=== PATIENT | female | born 1965 | race Two or more races ===

== ENCOUNTER → 2020-08-01 09:53 | Outpatient (BNVA) | payer MEDICAID, SELFPAY | PROVIDERS: PCP Internal Medicine Geriatric Medicine; Referring Provider Internal Medicine Geriatric Medicine; Visit Provider Nurse Practitioner Gerontology | DX: E11.65 Type 2 diabetes mellitus with hyperglycemia (principal); E11.40 Type 2 diabetes mellitus with diabetic neuropathy, unspecified; Z79.4 Long term (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 of insulin; E78.5 Hyperlipidemia, unspecified; I10 Essential (primary) hypertension | CPT/HCPCS: 82947; 99214 ==

== ENCOUNTER 2020-08-16 09:56 | Outpatient (REF) | payer MEDICAID, SELFPAY | END 2020-08-16 09:57 | disposition home or self-care (01) | LOC: HO.LAB 09:56 | PROVIDERS: Visit Provider Internal Medicine | DX: Z20.828 Contact with and (suspected) exposure to other viral communicable diseases (principal) | CPT/HCPCS: U0003 ==

== ENCOUNTER 2020-09-17 17:45 | Outpatient (REF) | payer MEDICAID, SELFPAY | END 2020-09-17 17:46 | disposition home or self-care (01) | LOC: HO.LAB 17:45 | PROVIDERS: PCP Internal Medicine Geriatric Medicine; Visit Provider Internal Medicine | DX: Z20.828 Contact with and (suspected) exposure to other viral communicable diseases (principal) | CPT/HCPCS: C9803; U0003 ==

== ENCOUNTER → 2020-09-18 08:58 | Outpatient (BNVA) | payer MEDICAID, SELFPAY | PROVIDERS: PCP Internal Medicine Geriatric Medicine; Referring Provider Internal Medicine Geriatric Medicine; Visit Provider Nurse Practitioner Gerontology | DX: Z76.89 Persons encountering health services in other specified circumstances (principal) ==

== ENCOUNTER 2020-09-19 14:00 | Outpatient (RCR) | payer MEDICAID, SELFPAY | END 2021-06-24 09:16 | disposition home or self-care (01) | LOC: HO.PT 14:00 | PROVIDERS: PCP Internal Medicine Geriatric Medicine; Visit Provider Internal Medicine Geriatric Medicine | DX: M54.5 Low back pain (principal) | CPT/HCPCS: 97110; 97140; 97162 ==

== ENCOUNTER 2020-11-14 13:05 | Outpatient (REF) | payer MEDICAID, SELFPAY ==
--- NOTE | 2020-11-14 | XR_ITS ---
EXAMINATION: XR WRIST, RIGHT CLINICAL INFORMATION: Pain in the right wrist COMPARISON: None TECHNIQUE: Four views of the right wrist. FINDINGS: There is no fracture or dislocation. The carpal rows are well aligned. There is negative ulnar variance of 0.2 cm. Vascular calcifications are noted. The soft tissues are otherwise unremarkable. XR/XR wrist RT min 3V IMPRESSION: Negative ulnar variance. Otherwise normal appearance of the right wrist.
== END 2020-11-14 13:06 | disposition home or self-care (01) ==
LOC: HO.XRAY 13:05
PROVIDERS: Visit Provider Internal Medicine
DX: M25.531 Pain in right wrist (principal)
CPT/HCPCS: 73110

== ENCOUNTER → 2020-12-17 13:31 | Outpatient (BNVA) | payer MEDICAID, SELFPAY | PROVIDERS: PCP Internal Medicine Geriatric Medicine; Visit Provider Nurse Practitioner ==

== ENCOUNTER → 2020-12-19 09:03 | Outpatient (BNVA) | payer MEDICAID, SELFPAY | PROVIDERS: PCP Internal Medicine Geriatric Medicine; Visit Provider Nurse Practitioner Gerontology ==

== ENCOUNTER 2020-12-27 09:11 | Outpatient (REF) | payer MEDICAID, SELFPAY ==
[2020-12-27 10:32] LABS: Estimated Average Glucose 240 mg/dL
[2020-12-27 10:46] LABS: Creatinine Urine 67.27 mg/dL; Microalbum/Creatinine Ratio Ur 17.8 ug/mg cr
[2020-12-27 10:50] LABS: Alanine Aminotransferase 39 U/L (0-31); Albumin Level 4.2 g/dL (3.5-5.0); Alkaline Phosphatase 90 U/L (39-117); Anion Gap 11 (12-20); Aspartate Amino Transferase 39 U/L (5-31); Bilirubin Total 0.2 mg/dL (0.0-1.0); Blood Urea Nitrogen 18 mg/dL (9-16); Calcium 9.7 mg/dL (8.4-10.2); Carbon Dioxide 33 mmol/L (22-29); Chloride 102 mmol/L (96-108); Cholesterol 196 mg/dL; Estimated Glomerular Filt Rate > 60; Glucose Fasting 202 mg/dL (60-99); HDL Cholesterol 59 mg/dL; LDL Cholesterol Calculated 113 mg/dl; Potassium 4.5 mmol/L (3.3-5.1); Sodium 141 mmol/L (135-145); Total Protein 7.3 g/dL (6.5-8.0); Triglycerides 123 mg/dL
[2020-12-27 11:10] LABS: Free T4 (Free Thyroxine) 0.82 ng/dL (0.71-1.85); Thyroid Stimulating Hormone 3.16 uIU/mL (0.32-4.0)
[2020-12-28 05:27] LABS: LDL Cholesterol Direct 119 mg/dL (<100)
== END 2020-12-27 09:12 | disposition home or self-care (01) ==
LOC: HO.10HDL 09:11
PROVIDERS: Visit Provider Nurse Practitioner Gerontology
DX: E11.40 Type 2 diabetes mellitus with diabetic neuropathy, unspecified (principal)
CPT/HCPCS: 36415; 80053; 80061; 82043; 83036; 83721; 84439; 84443

== ENCOUNTER → 2021-01-10 09:33 | Outpatient (BNVA) | payer MEDICAID, SELFPAY | PROVIDERS: PCP Internal Medicine Geriatric Medicine; Referring Provider Internal Medicine Geriatric Medicine; Visit Provider Internal Medicine Endocrinology, Diabetes & Metabolism | DX: C73 Malignant neoplasm of thyroid gland (principal); E11.65 Type 2 diabetes mellitus with hyperglycemia; E11.42 Type 2 diabetes mellitus with diabetic 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; E11.319 Type 2 diabetes mellitus with unspecified diabetic retinopathy without macular edema; E89.0 Postprocedural hypothyroidism; Z79.4 Long term (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 of insulin; I10 Essential (primary) hypertension; E78.5 Hyperlipidemia, unspecified | CPT/HCPCS: 82947; 99212 ==

== ENCOUNTER 2021-01-14 11:00 | Outpatient (RCR) | payer MEDICAID, SELFPAY | END 2021-02-13 13:40 | disposition other institution (70) | LOC: HO.OT 11:00 | PROVIDERS: PCP Internal Medicine Geriatric Medicine; Visit Provider Internal Medicine | DX: M25.531 Pain in right wrist (principal) | CPT/HCPCS: 29125; 97033; 97035; 97110; 97165; 97760 ==

== ENCOUNTER → 2021-01-23 13:59 | Outpatient (BNVA) | payer MEDICAID, SELFPAY | PROVIDERS: PCP Internal Medicine Geriatric Medicine; Visit Provider Nurse Practitioner Gerontology | DX: E11.65 Type 2 diabetes mellitus with hyperglycemia (principal); E11.40 Type 2 diabetes mellitus with diabetic neuropathy, unspecified; E78.5 Hyperlipidemia, unspecified; I10 Essential (primary) hypertension; Z79.4 Long term (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 of insulin | CPT/HCPCS: 82947; 99212 ==

== ENCOUNTER 2021-01-28 10:54 | Outpatient (REF) | payer MEDICAID, SELFPAY ==
--- NOTE | ~2021-01-28 | MM_ITS ---
EXAMINATION: MM DIAGNOSTIC DIGITAL BREAST TOMOSYNTHESIS, RIGHT US DIAGNOSTIC ULTRASOUND BREAST, RIGHT CLINICAL INFORMATION: Palpable area 6:00 right breast noted at routine clinical exam. The lifetime risk of breast cancer based on the Tyrer-Cuzick Model is 6%. COMPARISON: Mammography: 07/04/2020, 01/19/2019, 09/03/2017 TECHNIQUE: Digital breast tomosynthesis is performed in both the craniocaudal and mediolateral oblique views along with computer-aided detection (CAD). Synthesized 2D images are generated from the tomosynthesis. Ultrasound right breast is targeted to the area of recent clinical concern inferior breast 4:00 through 8:00 position. Grayscale imaging and color Doppler are performed without and with harmonics. FINDINGS: There are scattered areas of fibroglandular density (ACR BI-RADS breast composition Category b). Parenchymal pattern is similar to prior studies. There is no interval mass or architectural abnormality. No developing density. No skin thickening or retraction. No interval ductal ectasia or abnormal calcifications. Ultrasound demonstrates no cystic or solid mass, architectural abnormality, or focal duct ectasia. No skin thickening or edema tracking in soft tissue planes. Results are discussed with the patient at time of visit, using an certified court interpreter. MM/MM tomosynthesis diagnostic RT IMPRESSION: 1. No mammographic evidence of malignancy. No significant changes from prior studies. 2. Unremarkable targeted right breast ultrasound. ASSESSMENT: BI-RADS 1: Negative RECOMMENDATION: 1. Patient should be managed based on the clinical impression. If clinically indicated, further evaluation may be considered with surgical consult. Decision to proceed with biopsy should be based on clinical grounds and degree of clinical concern. 2. Otherwise, routine annual screening mammography. This patient's information was entered into a reminder system with a target due date for their next mammogram.
== END 2021-01-28 10:55 | disposition home or self-care (01) ==
LOC: HO.MAMMO 10:54
PROVIDERS: PCP Internal Medicine Geriatric Medicine; Visit Provider Advanced Practice Midwife
DX: N63.15 Unspecified lump in the right breast, overlapping quadrants (principal)
CPT/HCPCS: 76642; 77061; 77065

== ENCOUNTER → 2021-01-29 09:58 | Outpatient (BNVA) | payer MEDICAID, SELFPAY | PROVIDERS: PCP Internal Medicine Geriatric Medicine; Visit Provider Orthopaedic Surgery | DX: M25.531 Pain in right wrist (principal); M79.89 Other specified soft tissue disorders | CPT/HCPCS: 99202 ==

== ENCOUNTER 2021-02-06 15:41 | Outpatient (REF) | payer MEDICAID, SELFPAY ==
--- NOTE | ~2021-02-06 | MR_ITS ---
EXAMINATION: MR WRIST WITHOUT CONTRAST, RIGHT CLINICAL INFORMATION: Right wrist pain following a fall greater than 2 months ago. COMPARISON: Right wrist radiographs dated 11/14/2020 TECHNIQUE: MRI of the wrist was performed using routine sequences on a high-field scanner. FINDINGS: TRIANGULAR FIBROCARTILAGE: Thickening and abnormal signal throughout the radial aspect of the triangular fibrocartilage complex, which may represent undersurface partial tearing. No definite full-thickness defect. INTRINSIC LIGAMENTS: Intact. TENDONS/MEDIAN NERVE: The extensor digitorum tendinosis with prominent tenosynovitis throughout the extensor compartment. More mild extensor radialis brevis and extensor radialis longus tenosynovitis. No full-thickness transverse tendon defect. ARTICULAR CARTILAGE/BONE: Negative ulnar variance is redemonstrated. No articular cartilage loss. No acute osseous abnormality. JOINT FLUID/SOFT TISSUES: No significant joint effusion. Synovial recess versus ganglion cyst volar to the radial styloid measuring 0.2 x 1.4 x 1.1 cm. MR/MR wrist RT wo con IMPRESSION: 1. Prominent extensor digitorum tenosynovitis with mild tendinosis. No transverse tendon defect. 2. More mild extensor radialis brevis and extensor radialis longus tenosynovitis. 3. Negative ulnar variance without acute osseous abnormality. 4. Degenerative signal within the radial aspect of the triangular fibrocartilage complex with probable undersurface partial tearing. No full-thickness defect. 5. Synovial recess versus ganglion cyst volar to the radial styloid measuring up to 1.4 cm.
== END 2021-02-06 15:42 | disposition home or self-care (01) ==
LOC: HO.MRI 15:41
PROVIDERS: Visit Provider Orthopaedic Surgery
DX: M25.531 Pain in right wrist (principal); M79.89 Other specified soft tissue disorders
CPT/HCPCS: 73221

== ENCOUNTER 2021-02-12 15:15 | Outpatient (REF) | payer MEDICAID, SELFPAY | END 2021-02-12 15:16 | disposition home or self-care (01) | LOC: HO.LAB 15:15 | PROVIDERS: Visit Provider Internal Medicine | DX: Z20.822 Contact with and (suspected) exposure to COVID-19 (principal) | CPT/HCPCS: C9803; U0003; U0005 ==

== ENCOUNTER → 2021-03-21 11:35 | Outpatient (BNVA) | payer MEDICAID, SELFPAY | PROVIDERS: PCP Internal Medicine Geriatric Medicine; Visit Provider Nurse Practitioner Gerontology | DX: E11.65 Type 2 diabetes mellitus with hyperglycemia (principal); E11.40 Type 2 diabetes mellitus with diabetic neuropathy, unspecified; E78.5 Hyperlipidemia, unspecified; I10 Essential (primary) hypertension; Z79.4 Long term (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 of insulin | CPT/HCPCS: 82947; 99212 ==

== ENCOUNTER → 2021-04-17 09:59 | Outpatient (BNVA) | payer MEDICAID, SELFPAY | PROVIDERS: PCP Internal Medicine Geriatric Medicine; Visit Provider Surgery | DX: N63.10 Unspecified lump in the right breast, unspecified quadrant (principal) | CPT/HCPCS: 99202 ==

== ENCOUNTER 2021-04-23 07:10 | Day surgery (SDC) | payer MEDICAID, SELFPAY ==
--- NOTE | 2021-04-22 08:12 | HO.ANESPROP2 ---
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) Papillary microcarcinoma of thyroid (Acute) Gastroparesis (Acute) Tubular adenoma of colon (Acute) IBS (irritable bowel syndrome) (Acute) Esophageal spasm (Acute) Functional burping disorder (Acute) GERD (gastroesophageal reflux disease) (Acute) Diabetes mellitus with hyperglycemia (Acute) Type 2 diabetes mellitus with diabetic neuropathy, unspecified (Acute) Hyperlipidemia LDL goal <100 (Acute) Post-surgical hypothyroidism (Acute) Essential hypertension (Acute) Past Medical History Medical History Arthritis Depression Diabetes mellitus with hyperglycemia Diabetic 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 associated with type 2 diabetes mellitus Diabetic retinopathy associated with type 2 diabetes mellitus Essential hypertension Gallstones Gastroparesis Hyperlipidemia LDL goal <100 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 Mother Diabetes mellitus Daughter Diabetes mellitus Surgical History Surgical History H/O thyroidectomy History of cholecystectomy History of esophagogastroduodenoscopy (EGD) Hx of eye surgery Social History Social History Household Members: Children Alcohol intake: current Alcohol intake frequency: does not drink Patient Tobacco Use Status: Never used Tobacco Use of substances other than those prescribed or required for medical reasons: No Are you DNR?: No Advance Directives: No Advance Directives Information Provided: Yes Recently lost weight without trying: No Nutrition Risks: No Nutritional Risk Patient : No Current occupational status: disabled Current occupation: right handed Meds Allergies Allergy/AdvReac Type Severity Reaction Status Date / Time metformin AdvReac Mild stomach Verified 04/23/21 07:45 upset Home Medications Medication Instructions Recorded Confirmed Last Taken Type aspirin 81 mg tablet,delayed 81 mg PO DAILY 07/20/20 04/17/21 04/22/21 09:00 History release baclofen 10 mg tablet 10 mg PO DAILY 07/20/20 04/17/21 Unknown History enalapril maleate 10 mg tablet 10 mg PO DAILY 07/20/20 04/17/21 Unknown History ibuprofen 600 mg tablet 600 mg PO TID 07/20/20 04/17/21 Unknown History metformin 500 mg tablet See Rx Instructions PO DAILY 07/20/20 04/17/21 Unknown History sertraline 50 mg tablet 50 mg PO DAILY 07/20/20 04/17/21 Unknown History trazodone 50 mg tablet 50 mg PO DAILY 07/20/20 04/17/21 Unknown History Exam Exam Date and Time: April 22, 2021 0812 Pertinent Lab Results Pertinent Lab Results: Laboratory Tests 12/29/18 12/27/20 11:58 09:10 WBC 5.0 Hgb 13.0 Hct 37.1 Plt Count 181 Sodium 141 Potassium 4.5 Chloride 102 Carbon Dioxide 33 H BUN 18 H Creatinine 0.79 Assessment and Plan Assessment Anesthesia Assessment: Chart Reviewed Documented by User: Sally Taylor 04/23/21 08:29 [facility] Past Medical History Medical History Arthritis Depression Diabetes mellitus with hyperglycemia Diabetic 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 associated with type 2 diabetes mellitus Diabetic retinopathy associated with type 2 diabetes mellitus Essential hypertension Gallstones Gastroparesis Hyperlipidemia LDL goal <100 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 Mother Diabetes mellitus Daughter Diabetes mellitus Surgical History Surgical History H/O thyroidectomy History of cholecystectomy History of esophagogastroduodenoscopy (EGD) Hx of eye surgery Social History Social History Household Members: Children Alcohol intake: current Alcohol intake frequency: does not drink Patient Tobacco Use Status: Never used Tobacco Use of substances other than those prescribed or required for medical reasons: No Are you DNR?: No Advance Directives: No Advance Directives Information Provided: Yes Recently lost weight without trying: No Nutrition Risks: No Nutritional Risk Patient : No Current occupational status: disabled Current occupation: right handed Meds Allergies Allergy/AdvReac Type Severity Reaction Status Date / Time metformin AdvReac Mild stomach Verified 04/23/21 07:45 upset Home Medications Medication Instructions Recorded Confirmed Last Taken Type aspirin 81 mg tablet,delayed 81 mg PO DAILY 07/20/20 04/17/21 04/22/21 09:00 History release baclofen 10 mg tablet 10 mg PO DAILY 07/20/20 04/17/21 Unknown History enalapril maleate 10 mg tablet 10 mg PO DAILY 07/20/20 04/17/21 Unknown History ibuprofen 600 mg tablet 600 mg PO TID 07/20/20 04/17/21 Unknown History metformin 500 mg tablet See Rx Instructions PO DAILY 07/20/20 04/17/21 Unknown History sertraline 50 mg tablet 50 mg PO DAILY 07/20/20 04/17/21 Unknown History trazodone 50 mg tablet 50 mg PO DAILY 07/20/20 04/17/21 Unknown History Exam Airway Mallampati Class: II TM Dist: >3cm Neck ROM: Full Assessment and Plan Assessment Anesthesia Assessment: Anesthesia Plan Discussed and Chart Reviewed Final Anesthetic Review NPO: Yes ASA Class: III Final Preanesthetic Review: No Changes in Pt Med Stat, Meds/Allgs Chart Reviewed, Consent Obtained/Reviewed and Anes Risks/Benef Reviewed Patient Risk: Intermediate Procedure Risk: Low Assessment/Block/Sedation in SS: Assess/Block/Sedation-SS Anesthetic Plan Anesthetic Plan: MAC: Disposition: Standard PACU
[2021-04-23 08:01] VITALS: BP 121/69; PULSE 87; RESP 16; TEMP 36.2; O2SAT 96
[2021-04-23 08:08] VITALS: BMI 27.2
[2021-04-23 08:13] LABS: Glucose, Whole Blood 160 mg/dL (60-115)
[2021-04-23] MEDS: Lactated Ringers 1,000 ML 100 ML IVCONT (08:19)
--- NOTE | 2021-04-23 08:42 | MHC.SHP ---
Pre-Procedural Eval Section A Date of Service: 04/23/21 The patient is an INPATIENT: No Changes since office visit: Yes Patient answered all questions; No Cold of Flu in the past 2 weeks, No New Medical Problems and No Changes in Medication The History & Physical has been completed within 30 days and I have reviewed it.: Yes Section B Chief Complaint: Breast Mass Allergies: Allergies Allergy/AdvReac Type Severity Reaction Status Date / Time metformin AdvReac Mild stomach Verified 04/23/21 07:45 upset Plan Diagnosis/Plan: Unchanged I have reviewed the history and physical and performed a pertinent physical examination on my patient. No changes have occurred unless specified.
--- NOTE | 2021-04-23 09:16 | P.OP_ITS ---
Operative Note Operative Note Date of Service: 04/23/21 Narrative: Preoperative diagnosis: Right breast mass Postoperative diagnosis: same Procedure: excision of right breast mass Surgeon: George Akins MD Director Of Home Economics: no physician Anesthesia: MAC Indications for procedure: 56-year-old female presenting with a recent self identified mass in the 6 o'clock position of the right breast confirmed on physical examination as a 1.5 cm palpable mass discrete from the surrounding axel ast tissue. Workup with mammogram and ultrasound was negative. On examination patient has tenderness with palpation of this mass . She presents today For excision of the palpable mass Operative findings: 1.5 cm round palpable density possible fibrocystic change Specimen: right breast mass 06:00 o'clock Estimated blood loss: 5 mL Complications: none Procedure details: patient was brought to the OR and placed in a supine position. After administering light sedation the patient's right breast was prepped with ChloraPrep and draped in a sterile fashion. Local anesthesia consisting of 0.25% Sensorcaine with epinephrine was then infiltrated below the nipple-areolar complex in the 6 o'clock position. A curvilinear incision was then made with a scalpel carried out through subcutaneous tissue. Superior and inferior skin flaps were then created with electrocautery. A core of tissue surrounding the palpable mass was then excised using combination of electrocautery and Metzenbaum scissors hemostasis was assured all times the mass was removed and sent to pathology for further examination. Margins were marked with a long suture on the lateral margin short suture on the superior margin and loop suture on the deep /posterior margin. Wounds were irrigated with saline solution suctioned dry. Deep breast tissue was reapproximated using interrupted 3-0 Polysorb sutures. Dermis was reapproximated using interrupted 3-0 Polysorb sutures. Skin was then closed using a running subcuticular 4 0 Polysorb suture. Steri-Strips 2 x 2 gauze were then applied. This was then covered with Tegaderm dressing. The patient tolerated the procedure well. Sponge, instrument, needle counts reported as correct. The patient was transferred to PACU in stable condition.
[2021-04-23 09:23] VITALS: BP 139/76; PULSE 93; RESP 16; TEMP 36.6; O2SAT 95
[2021-04-23 09:39] VITALS: BP 127/63; PULSE 91; RESP 16; O2SAT 93
[2021-04-23 09:55] VITALS: BP 143/74; PULSE 92; RESP 16; TEMP 36.6; O2SAT 95
== END 2021-04-23 10:30 | disposition home or self-care (01) ==
PROVIDERS: PCP Internal Medicine Geriatric Medicine; Visit Provider Surgery
PROC: (CPT 19120; principal; 2021-04-23 09:10)
DX: N63.10 Unspecified lump in the right breast, unspecified quadrant (principal); I10 Essential (primary) hypertension; E55.9 Vitamin D deficiency, unspecified; E89.0 Postprocedural hypothyroidism; E11.42 Type 2 diabetes mellitus with diabetic 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; E11.65 Type 2 diabetes mellitus with hyperglycemia; E11.319 Type 2 diabetes mellitus with unspecified diabetic retinopathy without macular edema; Z85.850 Personal history of malignant neoplasm of thyroid; Z79.4 Long term (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 of insulin; Z79.82 Long term (current) use of aspirin; Z79.899 Other long term (current) drug therapy; Z88.8 Allergy status to other drugs, medicaments and biological substances
CPT/HCPCS: 19120; 82947; 88307; J0690; J2250; J2405; J3010

== ENCOUNTER → 2021-05-01 08:30 | Outpatient (BNVA) | payer MEDICAID, SELFPAY | PROVIDERS: PCP Internal Medicine Geriatric Medicine; Visit Provider Surgery | DX: Z48.816 Encounter for surgical aftercare following surgery on the genitourinary system (principal) | CPT/HCPCS: 99212 ==

== ENCOUNTER → 2021-06-02 13:45 | Outpatient (BNVA) | payer MEDICAID, SELFPAY | PROVIDERS: Visit Provider Orthopaedic Surgery | DX: M65.831 Other synovitis and tenosynovitis, right forearm (principal) | CPT/HCPCS: 99212 ==

== ENCOUNTER → 2021-08-04 13:25 | Outpatient (BNVA) | payer MEDICAID, SELFPAY | PROVIDERS: Referring Provider Internal Medicine Geriatric Medicine; Visit Provider Nurse Practitioner | DX: K31.84 Gastroparesis (principal); K58.9 Irritable bowel syndrome, unspecified; K22.4 Dyskinesia of esophagus; K21.9 Gastro-esophageal reflux disease without esophagitis; R14.2 Eructation | CPT/HCPCS: 99212 ==

== ENCOUNTER → 2021-08-19 11:12 | Outpatient (BNVA) | payer MEDICAID, SELFPAY | PROVIDERS: Visit Provider Physician Assistant | DX: M65.831 Other synovitis and tenosynovitis, right forearm (principal) | CPT/HCPCS: 99212 ==

== ENCOUNTER → 2021-09-02 11:55 | Outpatient (BNVA) | payer MEDICAID, SELFPAY | PROVIDERS: Visit Provider Nurse Practitioner ==

== ENCOUNTER 2021-12-04 11:28 | Outpatient (REF) | payer MEDICAID, SELFPAY ==
[2021-12-04 14:33] LABS: Alanine Aminotransferase 25 U/L (0-31); Albumin Level 4.3 g/dL (3.5-5.0); Alkaline Phosphatase 81 U/L (39-117); Aspartate Amino Transferase 31 U/L (5-31); Bilirubin Direct 0.2 mg/dL (0.0-0.5); Bilirubin Total 0.4 mg/dL (0.0-1.0); Cholesterol 180 mg/dL; HDL Cholesterol 67 mg/dL; LDL Cholesterol Calculated 98 mg/dl; Total Protein 7.9 g/dL (6.5-8.0); Triglycerides 79 mg/dL
[2021-12-04 14:48] LABS: Free T4 (Free Thyroxine) 1.11 ng/dL (0.71-1.85); Thyroid Stimulating Hormone 1.67 uIU/mL (0.32-4.0)
[2021-12-04 14:52] LABS: Gamma Glutamyl Transpeptidase 24 U/L (7-33)
[2021-12-05 07:26] LABS: LDL Cholesterol Direct 103 mg/dL (<100)
[2021-12-08 05:10] LABS: Thyroglobulin Antibody <1 IU/mL (<=1); Thyroglobulin Level 4.3 ng/mL
== END 2021-12-04 11:29 | disposition home or self-care (01) ==
LOC: HO.10HDL 11:28
PROVIDERS: Absent Provider Nurse Practitioner Gerontology; Visit Provider Internal Medicine Endocrinology, Diabetes & Metabolism
DX: C73 Malignant neoplasm of thyroid gland (principal); E78.5 Hyperlipidemia, unspecified
CPT/HCPCS: 36415; 80061; 80076; 82977; 83721; 84432; 84439; 84443; 86800

== ENCOUNTER → 2021-12-05 08:12 | Outpatient (BNVA) | payer MEDICAID, SELFPAY | PROVIDERS: PCP Internal Medicine Geriatric Medicine; Visit Provider Internal Medicine Endocrinology, Diabetes & Metabolism | DX: C73 Malignant neoplasm of thyroid gland (principal) | CPT/HCPCS: 99212 ==

== ENCOUNTER 2022-01-01 10:20 | Outpatient (REF) | payer MEDICAID, SELFPAY ==
[2022-01-01 11:20] LABS: Estimated Average Glucose 177 mg/dL; Hemoglobin A1c % 7.8 %
[2022-01-01 11:22] LABS: Alanine Aminotransferase 25 U/L (0-31); Albumin Level 4.2 g/dL (3.5-5.0); Alkaline Phosphatase 75 U/L (39-117); Anion Gap 13 (12-20); Aspartate Amino Transferase 26 U/L (5-31); Bilirubin Total 0.4 mg/dL (0.0-1.0); Blood Urea Nitrogen 19 mg/dL (9-16); Calcium 9.8 mg/dL (8.4-10.2); Carbon Dioxide 28 mmol/L (22-29); Chloride 105 mmol/L (96-108); Cholesterol 168 mg/dL; Estimated Glomerular Filt Rate > 60; Glucose Fasting 123 mg/dL (60-99); HDL Cholesterol 59 mg/dL; LDL Cholesterol Calculated 96 mg/dl; Potassium 4.8 mmol/L (3.3-5.1); Sodium 141 mmol/L (135-145); Total Protein 7.5 g/dL (6.5-8.0); Triglycerides 65 mg/dL
[2022-01-01 12:10] LABS: Creatinine Urine 95.26 mg/dL; Microalbum/Creatinine Ratio Ur 8.3 ug/mg cr
[2022-01-02 15:52] LABS: LDL Cholesterol Direct 101 mg/dL (<100)
== END 2022-01-01 10:21 | disposition home or self-care (01) ==
LOC: HO.LAB 10:20
PROVIDERS: PCP Internal Medicine Geriatric Medicine; Visit Provider Nurse Practitioner Gerontology
DX: E11.40 Type 2 diabetes mellitus with diabetic neuropathy, unspecified (principal); E11.65 Type 2 diabetes mellitus with hyperglycemia; E55.9 Vitamin D deficiency, unspecified; Z79.4 Long term (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 of insulin
CPT/HCPCS: 36415; 80053; 80061; 82043; 82306; 83036; 83721

== ENCOUNTER → 2022-01-07 08:31 | Outpatient (BNVA) | payer MEDICAID, SELFPAY | PROVIDERS: Visit Provider Nurse Practitioner Gerontology | DX: E11.65 Type 2 diabetes mellitus with hyperglycemia (principal); E11.40 Type 2 diabetes mellitus with diabetic neuropathy, unspecified; E78.5 Hyperlipidemia, unspecified; I10 Essential (primary) hypertension; Z79.4 Long term (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 of insulin | CPT/HCPCS: 82947; 99212 ==

== ENCOUNTER 2022-01-28 09:19 | Outpatient (REF) | payer MEDICAID, SELFPAY ==
--- NOTE | ~2022-01-28 | MM_ITS ---
EXAMINATION: MM SCREENING DIGITAL BREAST TOMOSYNTHESIS, BILATERAL CLINICAL INFORMATION: Screening. Asymptomatic. The lifetime risk of breast cancer based on the Tyrer-Cuzick Model is 6%. COMPARISON: Mammography: 01/28/2021, 07/04/2020, 01/19/2019 TECHNIQUE: Digital breast tomosynthesis is performed in both the craniocaudal and mediolateral oblique views along with computer-aided detection (CAD). Synthesized 2D images are generated from the tomosynthesis. FINDINGS: There are scattered areas of fibroglandular density (ACR BI-RADS breast composition Category b). There are no significant masses, abnormal calcifications, or other abnormalities. The axilla and skin contours are unremarkable. MM/MM tomosynthesis screening BI IMPRESSION: No mammographic evidence of malignancy. ASSESSMENT: BI-RADS 1: Negative RECOMMENDATION: Routine annual mammography screening. This patient's information was entered into a reminder system with a target due date for their next mammogram.
== END 2022-01-28 09:20 | disposition home or self-care (01) ==
LOC: HO.MAMMO 09:19
PROVIDERS: PCP Internal Medicine Geriatric Medicine; Visit Provider Internal Medicine Geriatric Medicine
DX: Z12.31 Encounter for screening mammogram for malignant neoplasm of breast (principal)
CPT/HCPCS: 77063; 77067

== ENCOUNTER → 2022-03-03 11:59 | Outpatient (BNVA) | payer MEDICAID, SELFPAY | PROVIDERS: PCP Internal Medicine Geriatric Medicine; Visit Provider Nurse Practitioner | DX: K21.9 Gastro-esophageal reflux disease without esophagitis (principal); K22.4 Dyskinesia of esophagus; K31.84 Gastroparesis; K59.00 Constipation, unspecified | CPT/HCPCS: 99212 ==

== ENCOUNTER → 2022-07-02 09:16 | Outpatient (BNVA) | payer MEDICAID, SELFPAY | PROVIDERS: PCP Internal Medicine Geriatric Medicine; Visit Provider Internal Medicine Endocrinology, Diabetes & Metabolism | DX: E11.319 Type 2 diabetes mellitus with unspecified diabetic retinopathy without macular edema (principal); E11.40 Type 2 diabetes mellitus with diabetic neuropathy, unspecified; C73 Malignant neoplasm of thyroid gland; Z79.4 Long term (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 of insulin; Z79.84 Long term (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 of oral hypoglycemic drugs | CPT/HCPCS: 82947; 83036; 99211; 99212 ==

== ENCOUNTER 2022-07-23 08:11 | Outpatient (REF) | payer MEDICAID, SELFPAY ==
[2022-07-23 10:13] LABS: Cholesterol 147 mg/dL; HDL Cholesterol 51 mg/dL; LDL Cholesterol Calculated 84 mg/dl; Triglycerides 60 mg/dL
[2022-07-23 10:41] LABS: Free T4 (Free Thyroxine) 1.22 ng/dL (0.71-1.85); Thyroid Stimulating Hormone 2.12 uIU/mL (0.32-4.0)
[2022-07-28 04:27] LABS: Thyroglobulin Antibody <1 IU/mL (<=1); Thyroglobulin Level 4.3 ng/mL
== END 2022-07-23 08:12 | disposition home or self-care (01) ==
LOC: HO.LAB 08:11
PROVIDERS: PCP Internal Medicine Geriatric Medicine; Visit Provider Internal Medicine Endocrinology, Diabetes & Metabolism
DX: C73 Malignant neoplasm of thyroid gland (principal); E11.40 Type 2 diabetes mellitus with diabetic neuropathy, unspecified; Z79.4 Long term (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 of insulin
CPT/HCPCS: 36415; 80061; 84432; 84439; 84443; 86800

== ENCOUNTER → 2022-07-24 12:56 | Outpatient (BNVA) | payer MEDICAID, SELFPAY | PROVIDERS: PCP Internal Medicine Geriatric Medicine; Visit Provider Dietitian, Registered | DX: E11.42 Type 2 diabetes mellitus with diabetic 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 (principal) | CPT/HCPCS: 97802 ==

== ENCOUNTER → 2022-07-30 09:57 | Outpatient (BNVA) | payer MEDICAID, SELFPAY | PROVIDERS: PCP Internal Medicine Geriatric Medicine; Visit Provider Registered Nurse Diabetes Educator | DX: E11.42 Type 2 diabetes mellitus with diabetic 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 (principal) | CPT/HCPCS: 99211 ==

== ENCOUNTER → 2022-09-09 11:25 | Outpatient (BNVA) | payer MEDICAID, SELFPAY | PROVIDERS: PCP Internal Medicine Geriatric Medicine; Visit Provider Nurse Practitioner | DX: K31.84 Gastroparesis (principal); K21.9 Gastro-esophageal reflux disease without esophagitis; K59.00 Constipation, unspecified | CPT/HCPCS: 99212 ==

== ENCOUNTER → 2022-11-17 09:40 | Outpatient (BNVA) | payer MEDICAID, SELFPAY | PROVIDERS: PCP Internal Medicine Geriatric Medicine; Visit Provider Internal Medicine Endocrinology, Diabetes & Metabolism | DX: C73 Malignant neoplasm of thyroid gland (principal); E11.40 Type 2 diabetes mellitus with diabetic neuropathy, unspecified; Z79.4 Long term (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 of insulin | CPT/HCPCS: 82947; 83036; 99212 ==

== ENCOUNTER → 2023-03-10 10:51 | Outpatient (BNVA) | payer MEDICAID, SELFPAY | PROVIDERS: PCP Internal Medicine Geriatric Medicine; Visit Provider Nurse Practitioner | DX: K21.9 Gastro-esophageal reflux disease without esophagitis (principal); K22.4 Dyskinesia of esophagus; K31.84 Gastroparesis; Z86.010 Personal history of colon polyps; Z79.899 Other long term (current) drug therapy | CPT/HCPCS: 99212 ==

== ENCOUNTER 2023-03-16 09:12 | Outpatient (REF) | payer MEDICAID, SELFPAY ==
--- NOTE | ~2023-03-16 | MM_ITS ---
EXAMINATION: MM SCREENING DIGITAL BREAST TOMOSYNTHESIS, BILATERAL CLINICAL INFORMATION: Screening. Asymptomatic. The lifetime risk of breast cancer based on the Tyrer-Cuzick Model is 5%. COMPARISON: Mammography: 01/28/2022, 01/28/2021, 07/04/2020 TECHNIQUE: Digital breast tomosynthesis is performed in both the craniocaudal and mediolateral oblique views along with computer-aided detection (CAD). Synthesized 2D images are generated from the tomosynthesis. FINDINGS: There are scattered areas of fibroglandular density (ACR BI-RADS breast composition Category b). There are no significant masses, abnormal calcifications, or other abnormalities. Parenchymal pattern is similar to prior studies. There is no developing density or architectural abnormality. The axilla and skin contours are unremarkable. No significant changes. MM/MM tomosynthesis screening BI IMPRESSION: No mammographic evidence of malignancy. ASSESSMENT: BI-RADS 1: Negative RECOMMENDATION: Routine annual mammography screening. This patient's information was entered into a reminder system with a target due date for their next mammogram.
== END 2023-03-16 09:13 | disposition home or self-care (01) ==
LOC: HO.MAMMO 09:12
PROVIDERS: Visit Provider Internal Medicine Geriatric Medicine
DX: Z12.31 Encounter for screening mammogram for malignant neoplasm of breast (principal)
CPT/HCPCS: 77063; 77067

== ENCOUNTER → 2023-03-17 09:51 | Outpatient (BNVA) | payer MEDICAID, SELFPAY | PROVIDERS: PCP Internal Medicine Geriatric Medicine; Visit Provider Internal Medicine Endocrinology, Diabetes & Metabolism | DX: C73 Malignant neoplasm of thyroid gland (principal); E11.40 Type 2 diabetes mellitus with diabetic neuropathy, unspecified; Z79.4 Long term (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 of insulin; Z79.899 Other long term (current) drug therapy | CPT/HCPCS: 82947; 83036; 99212 ==

== ENCOUNTER 2023-04-06 12:27 | Emergency (ER) | payer MEDICAID, SELFPAY ==
--- NOTE | ~2023-04-06 | CT_ITS ---
EXAMINATION: CT HEAD WITHOUT CONTRAST CLINICAL INFORMATION: Right-sided headache COMPARISON: None available. TECHNIQUE: Contiguous axial imaging was performed from the skull base to vertex without intravenous administration of contrast. This CT examination was performed using dose optimization techniques as appropriate, variously including the following: *Automated exposure control *Adjustment of mA and/or kV according to patient size (this includes techniques or standardized protocols for targeted exams where dose is matched to indication/reason for exam; i.e. extremities or head) *Use of iterative reconstruction technique DLP: 661 mGy-cm FINDINGS: There is no evidence of an extra-axial collection. There is no evidence of intra or extra-axial hemorrhage. The ventricles and extra-axial CSF spaces are appropriate. [place]-white matter differentiation is normal. No mass, mass effect or infarct. No skull fracture. Bilateral maxillary, ethmoid and frontal sinusitis. CT/CT head/brain wo IV con IMPRESSION: No acute intracranial findings. Pansinusitis.
[2023-04-06 13:09] VITALS: BP 128/80; PULSE 98; RESP 16; TEMP 36.4; O2SAT 97; BMI 28.9
--- NOTE | 2023-04-06 13:19 | ED.GENADULT ---
HPI - General Adult General Chief complaint: Headache Stated complaint: multiple symptoms Time Seen by Provider: 04/06/23 16:08 Source: patient Mode of arrival: ambulatory Limitations: language barrier (Croatian-speaking senior medical billing specialist utilized) History of Present Illness HPI narrative: Patient is a 58-year-old female who presents emergency department for evaluation of the right-sided headache, she was sent to the emergency department from the urgent care associated with her primary care office. She has been experiencing intermittent right-sided headache for the past 3 days. She states initially she felt her scalp on the right posterior side to be hot and swollen but this has since subsided. She denies any dizziness, lightheadedness, vision changes, frontal or temporal region pain, neck pain, neck stiffness, fevers, chills, chest pain, shortness of breath, difficulty breathing. She does report associated nausea and vomiting, with mild diarrhea described as softer than normal stools, not watery she has also been experiencing coughing, rhinorrhea. Denies any known sick contacts. Denies any notable migraine or headache history. Related Data Home Medications Medication Instructions Recorded Confirmed aspirin 81 mg tablet,delayed 81 mg PO DAILY 07/20/20 11/17/22 release (Adult Low Dose Aspirin) baclofen 10 mg tablet 10 mg PO DAILY 07/20/20 11/17/22 enalapril maleate 10 mg tablet 10 mg PO DAILY 07/20/20 12/05/21 metformin 500 mg tablet See Rx Instructions PO DAILY 07/20/20 01/07/22 hydrochlorothiazide 12.5 mg tablet 12.5 mg PO QAM 01/07/22 11/17/22 amlodipine 5 mg tablet 5 mg PO QAM 03/03/22 11/17/22 enalapril maleate 20 mg tablet 20 mg PO BEDTIME 03/03/22 11/17/22 estradiol 0.01% (0.1 mg/gram) 1 g vaginal 2XW 03/03/22 vaginal cream alcohol swabs (Alcohol Prep Pads) 0 pad topical TID 09/09/22 hydroxychloroquine 200 mg tablet 200 mg PO 09/09/22 11/17/22 hydroxyzine pamoate 25 mg capsule 25 mg PO BID PRN anxiety 09/09/22 11/17/22 ibuprofen 800 mg tablet 800 mg PO TID PRN pain 09/09/22 mirabegron 25 mg tablet,extended 25 mg PO QAM 09/09/22 11/17/22 release 24 hr (Myrbetriq) sertraline 100 mg tablet 100 mg PO QAM 09/09/22 11/17/22 trazodone 100 mg tablet 100 mg PO BEDTIME PRN insomnia 09/09/22 11/17/22 acetaminophen 500 mg tablet 500 mg PO Q6H PRN pain 11/17/22 11/17/22 albuterol sulfate 90 mcg/actuation 2 puff inhalation Q6H PRN wheezing 03/10/23 aerosol inhaler (Ventolin HFA) fluticasone propionate 50 1 - 2 spray intranasal QAM 03/10/23 mcg/actuation nasal spray,suspension montelukast 10 mg tablet 10 mg PO BEDTIME 03/10/23 Previous Rx's Medication Instructions Recorded levothyroxine 88 mcg tablet 88 mcg PO DAILY 90 days #90 tabs 04/07/21 oxycodone 5 mg tablet 5 mg PO Q6H PRN pain #10 tabs 04/23/21 flash glucose scanning reader #1 ea 01/07/22 (FreeStyle Rama 2 Hosford) flash glucose sensor (FreeStyle #2 ea 01/07/22 Rama 2 Sensor kit) insulin aspart U-100 100 unit/mL See Rx Instructions subcut TID 30 01/12/22 (3 mL) subcutaneous pen days #15 mL lancets 33 gauge (TRUEplus Lancets) 1 gauge miscellaneous QID for 02/04/22 diabetes mellitus #100 ea cholecalciferol (vitamin D3) 25 50 mcg PO QAM #60 caps 03/31/22 mcg (1,000 unit) capsule (Vitamin D3) blood sugar diagnostic (FreeStyle #100 ea 08/24/22 Lite Strips) pen needle, diabetic 32 gauge x #125 ea 10/07/22 (BD Ultra-Fine Sandy Pen Needle) gabapentin 300 mg capsule 300 mg PO BEDTIME #30 caps 01/06/23 pioglitazone 30 mg tablet 30 mg PO QAM #30 tabs 01/18/23 pravastatin 20 mg tablet 20 mg PO BEDTIME #30 tabs 01/18/23 insulin glargine U-300 conc 300 36 unit (0.12 mL) subcut BEDTIME 01/25/23 unit/mL (3 mL) subcutaneous pen #6 mL (Toujeo Max U-300 SoloStar) empagliflozin 25 mg tablet 25 mg PO QAM #30 tabs 02/11/23 (Jardiance) dicyclomine 20 mg tablet 20 mg PO .TIDAC 30 days #90 tabs 03/10/23 metoclopramide HCl 5 mg tablet 5 mg PO QIDACHS 30 days #120 tabs 03/10/23 (Reglan) omeprazole 20 mg capsule,delayed 20 mg PO DAILY #30 caps 03/10/23 release sennosides 8.6 mg tablet (senna) 17.2 mg PO BEDTIME for 03/10/23 constipation #60 tabs amoxicillin 875 mg-potassium 1 tab PO BID #14 tabs 04/06/23 clavulanate 125 mg tablet Allergies Allergy/AdvReac Type Severity Reaction Status Date / Time metformin AdvReac Mild stomach Verified 04/06/23 13:12 upset Review of Systems Review of Systems: Yes all other systems are reviewed and are negative PMFSH Past Medical History Attestation statement: The following information was validated with the patient. Source: old records reviewed Medical History Arthritis Depression Diabetes mellitus with hyperglycemia Diabetic 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 associated with type 2 diabetes mellitus Diabetic retinopathy associated with type 2 diabetes mellitus Essential hypertension Gallstones Gastroparesis Hyperlipidemia LDL goal <100 care home (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 of insulin Papillary microcarcinoma of thyroid Post-surgical hypothyroidism Retinopathy Type 2 diabetes mellitus with diabetic neuropathy, unspecified Uninodular goiter Vitamin D deficiency Surgical History H/O colonoscopy H/O thyroidectomy History of cholecystectomy History of esophagogastroduodenoscopy (EGD) Hx of eye surgery Family History Family History Father No problems noted. Mother Diabetes mellitus Daughter Diabetes mellitus Social History Social History Household Members: Children Alcohol intake: current Alcohol intake frequency: does not drink Patient Tobacco Use Status: Never used Tobacco Advance Directives: No Advance Directives Information Provided: No Current occupational status: disabled Current occupation: right handed Physical Exam ED Vital Signs: Vital Signs - 24 hr 04/06/23 13:09 04/06/23 16:50 Temperature 97.5 F Pulse Rate 98 88 Respiratory Rate 16 17 Blood Pressure 128/80 124/63 Pulse Oximetry 97 94 Oxygen Delivery Method Room Air Room Air BMI result Body Mass Index 28.9 Vital signs have been reviewed as normal and appeared to be correct. Blood pressure normal.? Heart rate normal.? Respiration rate normal. Temperature normal.? Oxygen saturation normal. Const Other: Appearance: Alert.?Oriented to person, place and time. No acute distress.?Normal affect. Head: Normocephalic, atraumatic. Right frontal/ maxillary sinus tenderenss upon palpation. Scalp free from rashes/ lesions Eyes: Sclera white, conjunctiva pink. PERRL, 3 mm bilaterally. Visual mattson full to confrontation, EOMi.?No Nystagmus. Ears: Bilateral ear canals clear, TM visible with good cone of light.? Nose: Nasal mucosa pink and moist with midline septum, nares patent bilaterally.? Mouth/ Throat: Oral mucosa pink and moist without lesions. Pharynx without exudate, tonsils symmetric, no adenopathy.? Neck: Normal inspection.? Neck supple.??No palpable tenderness, step-off, deformities. CVS: Heart sounds normal. Normal heart rate and rhythm.? Pulses normal.?? Respiratory: No respiratory distress.? Lung sounds clear to auscultation bilaterally?? Abdomen: Soft and non-tender. Normoactive bowel sounds. ?? Skin: Skin warm and dry.? Normal skin color.? Normal skin turgor.?? Extremities: No lower extremity edema.? Neuro: Moves all extremities spontaneously. Sensation intact bilaterally. CN II-XII intact. No focal neuro deficits. Course Course Course Narrative: 58-year-old female presents for evaluation of right-sided headache. She was sent from Urgent Care by Dr Mar for ?CT scan of the head. This was ordered. Medical Decision Making Medical Decision Making MDM Narrative: Patient is a 58-year-old female past medical history of arthritis, depression, type 2 diabetes, hypertension, gastroparesis, hyperlipidemia, papillary microcarcinoma of the thyroid and postsurgical hypothyroidism presenting to emergency department for evaluation of an intermittent headache. At this time she has minimal headache, it has been alleviated with Tylenol, no active scalp tenderness as previously reported. Examination is without any rashes or lesions. No focal neurological deficits. No concerning exposures, headache is not exacerbated or worsened by exertion and there are no red flag symptoms. No meningismus, afebrile, no tachycardia. CT of the head was overall unremarkable for any acute intracranial abnormalities, she does however have pansinusitis and she has been experiencing symptoms associated with this for the past 3 days, in addition to palpable sinus tenderness. Reviewed with patient symptom etiology may be secondary to sinusitis, for which we will treat with course of Augmentin. I did also discuss with patient the possibility of early herpes zoster presentation, and continuing to monitor the region for signs of zoster rash. At this time she is stable for discharge, agreeable plan of care. Advised outpatient follow-up with her primary care provider. Reviewed worrisome signs and symptoms that would warrant re-evaluation in the emergency department. Differential Diagnosis Differential Diagnoses: The differential diagnosis associated with the presentation includes (SDH, SAH, ICH, SEASONAL [place] BUNDLER mass, meningitis, encephalitis, CVA, GCA, migraine, headache) Independent Interpretation I performed an independent interpretation of an: CT Scan Interpretation: I have personally interpreted CT head and agree with radiologist impression Radiology Impression Discussion of test interpretation with radiology: I have reviewed the radiologist's reading. Radiologist Impression: CT/CT head/brain wo IV con IMPRESSION: No acute intracranial findings. Pansinusitis. Independent Historian Clinical information obtained from an independent historian. History obtained from or confirmed by: Friend (Patient's friend is present at baseline who confirms history) Prescription Management I considered prescription management with: Antibiotic Chronic Conditions Patient?s care impacted by: Diabetes and Hypertension Discharge Plan Discharge Clinical Impression: Acute pansinusitis, Headache Patient Disposition: Home, Self-Care Instructions: Sinusitis (ED), Acute Headache (ED) Additional Instructions: As discussed, it is likely your headache is related to the sinus infection you have. I have sent a prescription to the pharmacy for an antibiotic. Take this with food to prevent stomach upset. 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 As discussed, please continue to monitor the scalp for signs of shingles; redness, fluid filled blisters. If you develop this please contact your doctor for treatment. You may return back to the emergency department with any new or worsening symptoms or concerns. [place] se mencion?, es probable que strauss dolor de moy est? relacionado con la infecci?n de los senos paranasales que tiene. He enviado nusrat receta a la farmacia para un antibi?lyric. T?delong con alimentos para evitar el malestar estomacal. Recoja el medicamento contra las n?useas que strauss m?dico le envi? a strauss farmacia. [place] se mencion?, contin?e controlando el cuero cabelludo en busca de signos de culebrilla; enrojecimiento, ampollas llenas de l?quido. Si desarrolla esto, comun?quese con strauss m?dico para recibir tratamiento. Puede regresar al departamento de emergencias con cualquier s?ntoma o inquietud nueva o que empeore. Prescriptions: New amoxicillin-pot clavulanate 875-125 mg tablet 1 tab PO BID Qty: 14 0RF No Action levothyroxine 88 mcg tablet 88 mcg PO DAILY 90 Days Qty: 90 1RF Rx Instructions: Dose increased insulin aspart U-100 100 unit/mL (3 mL) insulin pen See Rx Instructions subcut TID 30 Days Qty: 15 6RF Rx Instructions: 4 units small meals, 8 medium meals and 10 units large meals, + 2 units for bg over 200 subcut 3 times a day; subcut 3 times a day; lancets [TRUEplus Lancets] 33 gauge misc 1 gauge miscellaneous QID Qty: 100 11RF cholecalciferol (vitamin D3) [Vitamin D3] 25 mcg (1,000 unit) capsule 50 mcg PO QAM Qty: 60 11RF (DME) FreeStyle Lite Strips Strip See Rx Instructions .ROUTE .MEDSUPPLY Qty: 100 11RF Rx Instructions: As directed four times a day (DME) pen needle, diabetic [BD Ultra-Fine Sandy Pen Needle] 32 gauge x 5/32 needle See Rx Instructions .ROUTE .MEDSUPPLY Qty: 125 4RF Rx Instructions: As directed four times a day gabapentin 300 mg capsule 300 mg PO BEDTIME Qty: 30 6RF pravastatin 20 mg tablet 20 mg PO BEDTIME Qty: 30 6RF pioglitazone 30 mg tablet 30 mg PO QAM Qty: 30 4RF Toujeo Max U-300 SoloStar 300 unit/mL (3 mL) insulin pen 36 unit subcut BEDTIME Qty: 6 3RF Jardiance 25 mg tablet 25 mg PO QAM Qty: 30 4RF oxycodone 5 mg tablet 5 mg PO Q6H PRN (Reason: pain) Qty: 10 0RF aspirin [Adult Low Dose Aspirin] 81 mg tablet,delayed release (DR/EC) 81 mg PO DAILY metformin 500 mg tablet See Rx Instructions PO DAILY Rx Instructions: 1/2 tablet PO daily; baclofen 10 mg tablet 10 mg PO DAILY enalapril maleate 10 mg tablet 10 mg PO DAILY hydrochlorothiazide 12.5 mg tablet 12.5 mg PO QAM (DME) FreeStyle Rama 2 Sensor Kit See Rx Instructions .ROUTE .MEDSUPPLY Qty: 2 11RF Rx Instructions: As directed every 2 weeks (DME) FreeStyle Rama 2 Hosford Misc See Rx Instructions .ROUTE .MEDSUPPLY Qty: 1 0RF Rx Instructions: As directed hydroxychloroquine 200 mg tablet 200 mg PO Myrbetriq 25 mg tablet extended release 24 hr 25 mg PO QAM hydroxyzine pamoate 25 mg capsule 25 mg PO BID PRN (Reason: anxiety) alcohol swabs [Alcohol Prep Pads] Pads, Medicated 0 pad topical TID trazodone 100 mg tablet 100 mg PO BEDTIME PRN (Reason: insomnia) sertraline 100 mg tablet 100 mg PO QAM ibuprofen 800 mg tablet 800 mg PO TID PRN (Reason: pain) fluticasone propionate 50 mcg/actuation spray,suspension 1 - 2 spray intranasal QAM albuterol sulfate [Ventolin HFA] 90 mcg/actuation HFA aerosol inhaler 2 puff inhalation Q6H PRN (Reason: wheezing) montelukast 10 mg tablet 10 mg PO BEDTIME dicyclomine 20 mg tablet 20 mg PO .TIDAC 30 Days Qty: 90 6RF metoclopramide HCl [Reglan] 5 mg tablet 5 mg PO QIDACHS 30 Days Qty: 120 6RF omeprazole 20 mg capsule,delayed release(DR/EC) 20 mg PO DAILY Qty: 30 6RF sennosides [senna] 8.6 mg tablet 17.2 mg PO BEDTIME Qty: 60 4RF estradiol 0.01 % (0.1 mg/gram) cream 1 g vaginal 2XW amlodipine 5 mg tablet 5 mg PO QAM enalapril maleate 20 mg tablet 20 mg PO BEDTIME acetaminophen 500 mg tablet 500 mg PO Q6H PRN (Reason: pain) Referrals: Physician,Unknown J [Primary Care Provider] - Interventions: ED Discharge Assessment Last Done: 04/06/23 16:51 Discharge Date/Time: 04/06/23 16:54
[2023-04-06 16:50] VITALS: BP 124/63; PULSE 88; RESP 17; O2SAT 94
== END 2023-04-06 16:54 | disposition home or self-care (01) ==
PROVIDERS: Emergency Provider Emergency Medicine
DX: J01.40 Acute pansinusitis, unspecified (principal); R51.9 Headache, unspecified
CPT/HCPCS: 70450; 99284

== ENCOUNTER 2023-05-06 11:22 | Outpatient (AMB) | payer MEDICAID, SELFPAY ==
[2023-05-06 11:42] VITALS: BMI 30.4
--- NOTE | 2023-05-06 11:42 | A.OFFVIS_ITS ---
Intake VS Expanded 05/06/23 11:42 05/18/23 11:26 Height 5 ft 2 in 5 ft 2 in Weight 166 lb 0.129 oz 166 lb BMI 30.4 30.4 Intake Visit Reasons: DM Allergies metformin Adverse Reaction (Mild, Verified 04/06/23 13:12) stomach upset HPI Nutrition Presentation Details Pt presents for MNT for T2DM . Initial appt was via TV in 2021. Pt needs reinforcement in diabetic meal planning concepts. food frequency: Fruits: 0-1/d, juices 2-3 x/d non starchy veg: not including but likes them protein foods: beef/pork/poultry/eggs, fish not including dairy: 0-1/d starches > 20 servings/d sodas: >2 cups/d pastries: 0-1/d physical activity: daily life activities ETOH/SMoking: denies QZJ-Ayinjgb-Mr.Jeor Equation Height 5 ft 2 in Weight 166 lb Resting Metabolic Rate 1285.18 Calculated Activity Level Sedentary Calories Needed to Maintain Weight 1542.22 Diagnosis Nutrition problem #1 excessive energy intake As related to (etiology) #1 diagnosis As evidenced by (sign/symptom) #1 food recall and weight gain (> 10 lbs in 9 m) Most Recent Diabetes Results: No Data to Display [facility] Medical History Arthritis Depression Diabetes mellitus with hyperglycemia Diabetic 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 associated with type 2 diabetes mellitus Diabetic retinopathy associated with type 2 diabetes mellitus Essential hypertension Gallstones Gastroparesis Hyperlipidemia LDL goal <100 senior care (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 of insulin Papillary microcarcinoma of thyroid Post-surgical hypothyroidism Retinopathy Type 2 diabetes mellitus with diabetic neuropathy, unspecified Uninodular goiter Vitamin D deficiency Surgical History H/O colonoscopy H/O thyroidectomy History of cholecystectomy History of esophagogastroduodenoscopy (EGD) Hx of eye surgery Family History Father No problems noted. Mother Diabetes mellitus Daughter Diabetes mellitus Social History Household Members: Children Alcohol intake: current Alcohol intake frequency: does not drink Patient Tobacco Use Status: Never used Tobacco Current occupational status: disabled Current occupation: right handed Female Reproductive History Menstrual Age of Menarche: 8 Assessment & Plan Assessment & Plan (1) Diabetic 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 associated with type 2 diabetes mellitus: Code(s): E11.42 - Type 2 diabetes mellitus with diabetic 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 Plan: Educate Pt on 1500 - 1600 jus meal plan ? Used wt : 75 kg Est kcal as per MSJ: 1500 (40% carb, 30% fat/prot) Est fluid needs: 1800 ml/d (25 ml/kg bw) Rec fiber: increase to 8-10 g per day and gradually increase to 25 g/d 35 g as tolerated Rec Na: < 2000 mg /d Educate patient on: (R= Reviewed, V = verbalizes understanding N/R= Needs review N/A= not applicable) * Food sources of carbohydrates and serving adequate serving sizes : R * Difference between complex carbohydrates and simple carbohydrates, role of fiber: R * Differences between fats (MUFA/PUFA/saturated fats, trans fats) and food sources of various fats: R * Food sources of sodium and salt and healthy modifications for heart health and kidney health: R * Vitamins and minerals: R * How to interpret food labels: R * Healthy Plate method concept: R V * Physical activity: benefits and precaution: R Patient Instructions: Reduce on sugar in beverages, have water, diluted juice with water instead Follow healthy plate method at dinner weight loss goal by next f/u 3 lbs Coding Level of Care Code Nutr Indiv Subseq (80002) Diagnoses Diabetic 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 associated with type 2 diabetes mellitus E11.42 Time Spent (min) 30
[2023-05-18 11:26] VITALS: BMI 30.4
== END 2023-05-06 12:08 | disposition home or self-care (01) ==
PROVIDERS: PCP Internal Medicine Geriatric Medicine; Visit Provider Dietitian, Registered
DX: E11.42 Type 2 diabetes mellitus with diabetic 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 (principal)

== ENCOUNTER → 2023-05-06 11:22 | Outpatient (BNVA) | payer MEDICAID, SELFPAY | PROVIDERS: PCP Internal Medicine Geriatric Medicine; Visit Provider Dietitian, Registered | DX: E11.42 Type 2 diabetes mellitus with diabetic 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 (principal) | CPT/HCPCS: 97803 ==

== ENCOUNTER 2023-07-05 08:04 | Outpatient (REF) | payer MEDICAID, SELFPAY ==
[2023-07-05 09:43] LABS: Free T4 (Free Thyroxine) 1.01 ng/dL (0.71-1.85); Thyroid Stimulating Hormone 2.21 uIU/mL (0.32-4.0)
[2023-07-07 03:14] LABS: Thyroglobulin 2.8 ng/mL
== END 2023-07-05 08:05 | disposition home or self-care (01) ==
LOC: HO.LAB 08:04
PROVIDERS: PCP Internal Medicine Geriatric Medicine; Visit Provider Internal Medicine Endocrinology, Diabetes & Metabolism
DX: C73 Malignant neoplasm of thyroid gland (principal)
CPT/HCPCS: 36415; 84432; 84439; 84443

== ENCOUNTER 2023-12-20 08:15 | Outpatient (REF) | payer MEDICAID, SELFPAY ==
[2023-12-20 09:29] LABS: Anion Gap 14 (12-20); Blood Urea Nitrogen 15 mg/dL (9-16); Calcium 9.9 mg/dL (8.4-10.2); Carbon Dioxide 30 mmol/L (22-29); Chloride 102 mmol/L (96-108); Cholesterol 138 mg/dL (<200); Estimated Glomerular Filt Rate > 60; Glucose Random 224 mg/dL (60-115); HDL Cholesterol 53 mg/dL (>40); LDL Cholesterol Calculated 72 mg/dL (<100); Potassium 4.8 mmol/L (3.3-5.1); Sodium 141 mmol/L (135-145); Triglycerides 69 mg/dL (<150)
[2023-12-20 09:46] LABS: Free T4 (Free Thyroxine) 1.08 ng/dL (0.71-1.85); Thyroid Stimulating Hormone 0.97 uIU/mL (0.32-4.0)
[2023-12-20 10:04] LABS: Creatinine Urine 49.38 mg/dL
== END 2023-12-20 08:16 | disposition home or self-care (01) ==
LOC: HO.LAB 08:15
PROVIDERS: Visit Provider Internal Medicine Endocrinology, Diabetes & Metabolism
DX: E89.0 Postprocedural hypothyroidism (principal); C73 Malignant neoplasm of thyroid gland; E11.40 Type 2 diabetes mellitus with diabetic neuropathy, unspecified; Z79.4 Long term (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 of insulin
CPT/HCPCS: 36415; 80048; 80061; 82043; 82570; 84439; 84443

== ENCOUNTER 2023-12-21 10:00 | Outpatient (AMB) | payer MEDICAID, SELFPAY ==
--- NOTE | 2023-12-21 10:01 | MHC.OFFVIS ---
Intake Vital Signs 12/21/23 10:02 Height 5 ft 2 in Weight 147 lb 7.828 oz BMI 27.0 BP 132/60 Blood Pressure Location Rt brachial Position Sitting Pulse 89 Pulse Source Pulse Oximeter Intake Visit Reasons: f/u Type 2 DM and papillary microcarcinoma-conf Intake Note: Patient present today to follow up on T2DM and Papillary microcarcinoma. Last Diabetic Eye exam: 2021 Last Podiatry Visit: Doesn't have one. Random Glucose: 185 mg/dl HgA1C: 10.4% Wire Rope Sales Representative Required: Yes Wire Rope Sales Representative Language: Underground Miner Name: [facility] staff Information Interpreted: non-clinical & clinical Accompanied by: Self / Same As Patient Allergies metformin Adverse Reaction (Mild, Verified 12/21/23 10:07) stomach upset HPI HPI Comments History of Present Illness Details Patient is 57 yo female with DM type 2 diagnosed around 2004 who presents for continued management of diabetes. . Current diabetes medications include: Jardiance 25 mg, Toujeo 34 units, and Humalog will be 8 units for small meals and 12 units for a large meal, pioglitazone 30mg. taking metformin 500 mg half a tab daily due to stomach upset with higher doses. She does have gastroparesis. However she states she tolerated the Trulicity fine the past Past Medical History includes: hypertensio n, HLD arthritis, depression, uninodular goiter s/p thyroidectomy with papillary microcarcinoma), gastroparesis Micro and Macro Vascular Complications: neuropathy, retinopathy Blood Glucose Monitoring: CloudMed[employer] download shows she is using this CGMS 55% of the time. Average glucose is .216 with GMI of 8.5 29% range with 71% hyperglycemia and 0% hypoglycemia. Pattern shows decreasing blood sugars overnight but elevation in blood sugar post-meals Symptoms: reports tingling in legs. Takes gabapentin at night and it is helpful. Hypoglycemia: Eye Exam , last exam >1 yr . Needs to make appt undergoing VEGF treatment for retinopathy On levothyroxine 88 ug QD for post-surgical hypothyroidism for papillary microcarcinoma [facility] Medical History Arthritis Depression Diabetes mellitus with hyperglycemia Diabetic 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 associated with type 2 diabetes mellitus Diabetic retinopathy associated with type 2 diabetes mellitus Essential hypertension Gallstones Gastroparesis Hyperlipidemia LDL goal <100 penit[facility]iary (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 of insulin Papillary microcarcinoma of thyroid Post-surgical hypothyroidism Retinopathy Type 2 diabetes mellitus with diabetic neuropathy, unspecified Uninodular goiter Vitamin D deficiency Surgical History H/O colonoscopy H/O thyroidectomy History of cholecystectomy History of esophagogastroduodenoscopy (EGD) Hx of eye surgery Family History Father No problems noted. Mother Diabetes mellitus Daughter Diabetes mellitus Social History Household Members: Children Alcohol intake: current Alcohol intake frequency: does not drink Patient Tobacco Use Status: Never used Tobacco Current occupational status: disabled Current occupation: right handed Female Reproductive History Menstrual Age of Menarche: 8 Physical Exam Vital Signs: Last Vital Signs Pulse 89 12/21/23 10:02 BP 132/60 12/21/23 10:02 BMI result Body Mass Index 27.0 Absence of Cushingoid features. Absence of acromegalic features. Neck exam reveals nl size thyroid about 15 gms. No thyroid nodules palpable. No carotid bruits present. Lungs CTA. Heart S1 S2, Reg R/R. No M/R/ G. Skin exam reveals absence of vitiligo or acanthosis nigricans. Abdominal exam reveals Soft NT/ND with NA BS. No organomegaly present. Neck Other: . Extrem Other: Visual exam of foot performed. No ulcerations or open lesions. No onchomycosis, no callouses.Pulses 2 + distally Sensation intact to monofilament exam. Vibratory sensation sensed is decreased with 128 Hz tuning fork Results AMB Hemoglobin A1c AMB Hemoglobin A1c 10.4 % Last Edit by RAJEEV Bacon on 12/21/23 10:19 Results Reviewed Results Reviewed: Laboratory Last Values Glucose (Clinic) 185 mg/dL (60-115) H 12/21/23 10:09 Hgb A1c (Clinic) 10.4 % (4.0-6.0) H 12/21/23 10:13 Assessment & Plan Assessment & Plan (1) Papillary microcarcinoma of thyroid: Code(s): C73 - Malignant neoplasm of thyroid gland Plan: History lobectomy with papillary microcarcinoma. Currently on levothyroxine 88 mcg q.d. appears clinically and biochemically euthyroid Plan is to continue current therapy. In Terms of the thyroid cancer and hypothyroidism, patient can follow up with the primary care provider who can check her TSH adjust Levothyroid and can follow-up with endocrinology as needed (2) Type 2 diabetes mellitus with diabetic neuropathy, unspecified: Code(s): E11.40 - Type 2 diabetes mellitus with diabetic neuropathy, unspecified Qualifiers: Diabetes mellitus predatory animal exterminator insulin use: with predatory animal exterminator use Qualified Code(s): E11.40 - Type 2 diabetes mellitus with diabetic neuropathy, unspecified; Z79.4 - exterminator termite (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 of insulin Plan: This is a 58-year-old female with history of type 2 diabetes being managed with sub maximal doses, Jardiance and Actos and basal-bolus insulin with good but not optimal glycemic and known microvascular complications namely neuropathy and retinopathy. Plan is to i restart Trulicity 1.5 mg Q weekly. She was told to report any hypoglycemia so that insulin can be adjusted. . I will have her follow-up with the ssis architect discuss this Orders: Orders AMB Hemoglobin A1c Today E11.40 - Type 2 diabetes mellitus with diabetic neuropathy, unspecified, Z13.9 - Encounter for screening, unspecified Medications: New dulaglutide (Trulicity) 1.5 mg (0.5 mL) subcut QWEEK 2 mL 4RF Coding Level of Care Code Est Pt Level 4 (15007) Diagnoses Papillary microcarcinoma of thyroid C73 Type 2 diabetes mellitus with diabetic neuropathy, with long-term current use of insulin E11.40; Z79.4 Diabetes mellitus predatory animal exterminator insulin use: with predatory animal exterminator use
[2023-12-21 10:02] VITALS: BP 132/60; PULSE 89; BMI 27.0
[2023-12-21 10:12] LABS: Glucose, Whole Blood 185 mg/dL (60-115)
== END 2023-12-21 10:34 | disposition home or self-care (01) ==
PROVIDERS: PCP Internal Medicine Geriatric Medicine; Visit Provider Internal Medicine Endocrinology, Diabetes & Metabolism
DX: C73 Malignant neoplasm of thyroid gland (principal); E11.40 Type 2 diabetes mellitus with diabetic neuropathy, unspecified; Z79.4 Long term (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 of insulin; Z13.9 Encounter for screening, unspecified
CPT/HCPCS: 99214

== ENCOUNTER → 2023-12-21 10:00 | Outpatient (BNVA) | payer MEDICAID, SELFPAY | PROVIDERS: PCP Internal Medicine Geriatric Medicine; Visit Provider Internal Medicine Endocrinology, Diabetes & Metabolism | DX: E11.40 Type 2 diabetes mellitus with diabetic neuropathy, unspecified (principal); C73 Malignant neoplasm of thyroid gland; Z79.4 Long term (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 of insulin | CPT/HCPCS: 82947; 83036; 99212 ==

== ENCOUNTER 2024-01-25 10:09 | Outpatient (AMB) | payer MEDICAID, SELFPAY ==
--- NOTE | 2024-01-25 10:50 | A.OFFVIS_ITS ---
Intake Intake Visit Reasons: T2DM Copy Technician Required: Yes Copy Technician Language: Animal Shelter Supervisor Name: Mila [id number] Information Interpreted: non-clinical & clinical Accompanied by: Self / Same As Patient Allergies metformin Adverse Reaction (Mild, Verified 12/21/23 10:07) stomach upset HPI Comprehensive Diabetes Asmnt Most Recent Diabetes Results: Microalb/Creat Ratio 87.0 ug/mg cr (<30) H 12/20/23 Cholesterol 138 mg/dL (<200) 12/20/23 HDL Cholesterol 53 mg/dL (>40) 12/20/23 Triglycerides 69 mg/dL (<150) 12/20/23 Creatinine 0.79 mg/dL (0.5-1.4) 12/20/23 Blood Urea Nitrogen 15 mg/dL (9-16) 12/20/23 Sodium 141 mmol/L (135-145) 12/20/23 Potassium 4.8 mmol/L (3.3-5.1) 12/20/23 Chloride 102 mmol/L (96-108) 12/20/23 Carbon Dioxide 30 mmol/L (22-29) H 12/20/23 Calcium 9.9 mg/dL (8.4-10.2) 12/20/23 AST 26 U/L (5-31) 01/01/22 ALT 25 U/L (0-31) 01/01/22 Total Protein 7.5 g/dL (6.5-8.0) 01/01/22 Albumin 4.2 g/dL (3.5-5.0) 01/01/22 [facility] [place] Medical History Arthritis Depression Diabetes mellitus with hyperglycemia Diabetic 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 associated with type 2 diabetes mellitus Diabetic retinopathy associated with type 2 diabetes mellitus Essential hypertension Gallstones Gastroparesis Hyperlipidemia LDL goal <100 technician terminal and repeater (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 of insulin Papillary microcarcinoma of thyroid Post-surgical hypothyroidism Retinopathy Type 2 diabetes mellitus with diabetic neuropathy, unspecified Uninodular goiter Vitamin D deficiency Surgical History H/O colonoscopy H/O thyroidectomy History of cholecystectomy History of esophagogastroduodenoscopy (EGD) Hx of eye surgery Family History Father No problems noted. Mother Diabetes mellitus Daughter Diabetes mellitus Social History Household Members: Children Alcohol intake: current Alcohol intake frequency: does not drink Patient Tobacco Use Status: Never used Tobacco Current occupational status: disabled Current occupation: right handed Female Reproductive History Menstrual Age of Menarche: 8 Assessment & Plan Assessment & Plan (1) Diabetic retinopathy associated with type 2 diabetes mellitus: Code(s): E11.319 - Type 2 diabetes mellitus with unspecified diabetic retinopathy without macular edema Plan: Learning objectives: The patient was provided with verbal and written education on the following topics as outlined below. Assess patient education level/literacy/barriers Patient questions/concerns, patient's last A1c was 10.4% on 12/21/2023. At that visit Dr. Valdez ask patient to resume Trulicity 1.5 mg weekly. However patient reports when she went to pick it up at the pharmacy they did not have that dose so they gave her Trulicity 0.75 mg Called pharmacy to confirm that they will be sending her Trulicity 1.5 mg for this next month, compounding pharmacy technician reported they do have that dose and they will send it to her and she will receive it on 01/26/2024 Patient had just resume sensor wear on today's date, so that was no glucose information to review The patient met all learning objectives and was able to verbalize understanding and provide teach back of education topics discussed . The patient was provided with the opportunity to ask questions and all questions were answered. Topics covered in today?s session included: Medications (If applicable) * Name of medication? * Dosing/administration instructions? * Mechanism of action? * Potential side effects? * Potential adverse reaction and appropriate treatment? * Review onset, peak, duration Assess for concerns re: insurance coverage, cost, barriers to compliance Insulin/Injectables (If applicable) * Storage/care of insulin?? * Injection sites? * Site rotation? * Onset, peak, duration * Drawing up insulin? * Injecting insulin/other injectables? * Sharps disposal Continuous blood glucose monitoring (if applicable) Hypoglycemia and Hyperglycemia * Signs and symptoms? * Causes?? * Treatment? * Preventing hypoglycemia? * When to seek medical attention * Blood glucose targets and how you feel when your blood glucose is in and out of your target ranges. * Monitoring and knowing your A1C. * What can make blood glucose go up and down and preventing high and low blood glucose. * Review of blood sugar targets in expected goal range and outside of expected goal range. * Problem solving and preventing hyper/hypoglycemia. * Sick day management of diabetes. * Using blood sugar results in decision making process in managing diabetes. ?Patient was receptive to information provided and participated in the discussion. Asked?appropriate questions and demonstrated good understanding of the topics discussed.? ? Educational Materials: The patient was provided with the following written educational materials: Target Goal handout Comprehension of Instructions: fair Readiness to make changes:? Contemplation How confident they feel about making changes: Fair Patient Instructions: Patient will follow-up with logistic manager in 1 month after taking 1 month of Trulicity 1.5 mg Coding Level of Care Code Est Pt Level 1 (79366) Diagnoses Diabetic retinopathy associated with type 2 diabetes mellitus E11.319
== END 2024-01-25 11:18 | disposition home or self-care (01) ==
PROVIDERS: PCP Internal Medicine Geriatric Medicine; Visit Provider Registered Nurse Diabetes Educator
DX: E11.319 Type 2 diabetes mellitus with unspecified diabetic retinopathy without macular edema (principal)

== ENCOUNTER → 2024-01-25 10:09 | Outpatient (BNVA) | payer MEDICAID, SELFPAY | PROVIDERS: PCP Internal Medicine Geriatric Medicine; Visit Provider Registered Nurse Diabetes Educator | DX: E11.319 Type 2 diabetes mellitus with unspecified diabetic retinopathy without macular edema (principal) | CPT/HCPCS: 99211 ==

== ENCOUNTER → 2024-02-09 10:23 | Outpatient (BNVA) | payer SELFPAY | PROVIDERS: PCP Internal Medicine Geriatric Medicine; Visit Provider Physician Assistant | DX: Z02.1 Encounter for pre-employment examination (principal) ==

== ENCOUNTER 2024-02-27 15:18 | Inpatient (IN) | payer MEDICAID, SELFPAY ==
--- NOTE | ~2024-02-27 | CT_ITS ---
EXAMINATION: CT ABDOMEN AND PELVIS WITHOUT CONTRAST CLINICAL INFORMATION: Right lower quadrant and right upper quadrant abdominal pain COMPARISON: None available. TECHNIQUE: Multidetector volumetric imaging was performed from the superior aspect of the liver through the pubic symphysis. Sagittal and coronal reformatted images were obtained on the technologist's workstation. This CT examination was performed using dose optimization techniques as appropriate, variously including the following: *Automated exposure control *Adjustment of mA and/or kV according to patient size (this includes techniques or standardized protocols for targeted exams where dose is matched to indication/reason for exam; i.e. extremities or head) *Use of iterative reconstruction technique DLP: 522 mGy-cm FINDINGS: Evaluation of solid organs, vascular structures, and bowel wall limited in the absence of intravenous contrast. LUNG BASES: Multivessel coronary artery calcifications present. Mild bibasilar atelectasis. Lung bases otherwise unremarkable. LIVER AND BILIARY TREE: Diffuse hepatic steatosis. GALLBLADDER: Status post cholecystectomy. PANCREAS: Unremarkable. SPLEEN: Unremarkable. ADRENAL GLANDS: Unremarkable. KIDNEYS AND URETERS: Unremarkable. GASTROINTESTINAL TRACT: Unremarkable. Markedly dilated, thick-walled appendix measuring up to 2.4 cm in diameter, containing scattered appendicoliths measuring up to 1.2 cm, and multiple peripheral foci of gas. Marked periappendiceal fat stranding with trace paracolic fluid. No organized periappendiceal fluid collection or extraluminal gas identified. VASCULAR: Mild aortoiliac calcific atherosclerosis. LYMPH NODES: No lymphadenopathy. PERITONEUM: No ascites. BLADDER: Unremarkable. PELVIC VISCERA: Unremarkable. ABDOMINAL AND PELVIC WALL: Unremarkable. OSSEOUS STRUCTURES: Mild multilevel degenerative lumbar spondylosis. CT/CT abdomen pelvis wo IV con IMPRESSION: 1. Acute appendicitis, with multiple peripheral foci of appendiceal gas, possibly intramural and may be seen with impending perforation. No organized periappendiceal fluid collection or extraluminal gas identified. 2. Diffuse hepatic steatosis. 3. Multivessel coronary artery calcifications. Correlate with cardiac risk factors.
[2024-02-27 15:22] VITALS: BP 141/65; PULSE 104; RESP 18; TEMP 37.8; O2SAT 96; BMI 25.9
--- NOTE | 2024-02-27 15:22 | ED.GENADULT ---
HPI - General Adult General Chief complaint: Abdominal Pain Stated complaint: vomiting, abd pain, pale, chills Time Seen by Provider: 02/27/24 17:14 Source: patient, family and sports media Mode of arrival: ambulatory Limitations: no limitations History of Present Illness HPI narrative: 58-year-old female came in for evaluation of right side abdominal pain with nausea, vomiting, and diarrhea x3 days. No history exposure to bad food, sick contacts, recent travel, or recent use of antibiotic. Patient had multiple episodes of vomiting and diarrhea with decreased p.o. intake patient is also complaining of headache, no photophobia, no neck stiffness. Related Data Home Medications ?Medication ?Instructions ?Recorded ?Confirmed aspirin 81 mg tablet,delayed 81 mg PO DAILY 07/20/20 11/17/22 release (Adult Low Dose Aspirin) baclofen 10 mg tablet 10 mg PO DAILY 07/20/20 11/17/22 enalapril maleate 10 mg tablet 10 mg PO DAILY 07/20/20 12/05/21 metformin 500 mg tablet See Rx Instructions PO DAILY 07/20/20 01/07/22 hydrochlorothiazide 12.5 mg tablet 12.5 mg PO QAM 01/07/22 11/17/22 amlodipine 5 mg tablet 5 mg PO QAM 03/03/22 11/17/22 enalapril maleate 20 mg tablet 20 mg PO BEDTIME 03/03/22 11/17/22 estradiol 0.01% (0.1 mg/gram) 1 g vaginal 2XW 03/03/22 vaginal cream alcohol swabs (Alcohol Prep Pads) 0 pad topical TID 09/09/22 hydroxychloroquine 200 mg tablet 200 mg PO 09/09/22 11/17/22 hydroxyzine pamoate 25 mg capsule 25 mg PO BID PRN anxiety 09/09/22 11/17/22 ibuprofen 800 mg tablet 800 mg PO TID PRN pain 09/09/22 mirabegron 25 mg tablet,extended 25 mg PO QAM 09/09/22 11/17/22 release 24 hr (Myrbetriq) sertraline 100 mg tablet 100 mg PO QAM 09/09/22 11/17/22 trazodone 100 mg tablet 100 mg PO BEDTIME PRN insomnia 09/09/22 11/17/22 acetaminophen 500 mg tablet 500 mg PO Q6H PRN pain 11/17/22 11/17/22 albuterol sulfate 90 mcg/actuation 2 puff inhalation Q6H PRN wheezing 03/10/23 aerosol inhaler (Ventolin HFA) fluticasone propionate 50 1 - 2 spray intranasal QAM 03/10/23 mcg/actuation nasal spray,suspension montelukast 10 mg tablet 10 mg PO BEDTIME 03/10/23 Previous Rx's ?Medication ?Instructions ?Recorded levothyroxine 88 mcg tablet 88 mcg PO DAILY 90 days #90 tabs 04/07/21 oxycodone 5 mg tablet 5 mg PO Q6H PRN pain #10 tabs 04/23/21 flash glucose scanning reader #1 ea 01/07/22 (FreeStyle Rama 2 [place]) insulin aspart U-100 100 unit/mL See Rx Instructions subcut TID 30 01/12/22 (3 mL) subcutaneous pen days #15 mL lancets 33 gauge (TRUEplus Lancets) 1 gauge miscellaneous QID for 02/04/22 diabetes mellitus #100 ea cholecalciferol (vitamin D3) 25 50 mcg (2 x 25 mcg (1,000 unit)) 03/31/22 mcg (1,000 unit) capsule (Vitamin PO QAM #60 caps D3) dicyclomine 20 mg tablet 20 mg PO .TIDAC 30 days #90 tabs 03/10/23 metoclopramide HCl 5 mg tablet 5 mg PO QIDACHS 30 days #120 tabs 03/10/23 (Reglan) sennosides 8.6 mg tablet (senna) 17.2 mg (2 x 8.6 mg) PO BEDTIME 03/10/23 for constipation #60 tabs amoxicillin 875 mg-potassium 1 tab PO BID #14 tabs 04/06/23 clavulanate 125 mg tablet flash glucose sensor (FreeStyle #2 ea 04/27/23 Rama 2 Sensor kit) pen needle, diabetic 32 gauge x ##100 06/22/23 (BD Ultra-Fine Sandy Pen Needle) pravastatin 20 mg tablet 20 mg PO BEDTIME #30 tabs 08/16/23 empagliflozin 25 mg tablet 25 mg PO QAM #30 tabs 09/01/23 (Jardiance) blood sugar diagnostic (FreeStyle #100 strips 10/26/23 Lite Strips) gabapentin 300 mg capsule 300 mg PO BEDTIME #30 caps 10/26/23 pioglitazone 30 mg tablet 30 mg PO QAM #30 tabs 11/08/23 insulin glargine U-300 conc 300 36 unit (0.12 mL) subcut BEDTIME 12/07/23 unit/mL (3 mL) subcutaneous pen #6 mL (Toujeo Max U-300 SoloStar) dulaglutide 1.5 mg/0.5 mL 1.5 mg (0.5 mL) subcut QWEEK #2 mL 12/21/23 subcutaneous pen injector (Trulicity) omeprazole 20 mg capsule,delayed 20 mg PO QAM #30 caps 02/17/24 release Allergies Allergy/AdvReac Type Severity Reaction Status Date / Time metformin AdvReac Mild stomach Verified 02/27/24 15:25 upset Review of Systems Review of Systems: All other systems are reviewed and are negative Constitutional: Reports as per HPI and Reports no additional constitutional complaints Eyes: Reports as per HPI and Reports no additional eye complaints Reports system reviewed and no additional complaints, except as documented Cardiovascular: Reports as per HPI and Reports no additional cardiovascular complaints Respiratory: Reports as per HPI and Reports no additional respiratory complaints Gastrointestinal: Reports as per HPI and Reports no additional gastrointestinal complaints Genitourinary: Reports no additional female genitourinary complaints Musculoskeletal: Reports no additional musculoskeletal complaints Skin/Breast: Reports system reviewed and no additional complaints, except as docu Psychiatric: Reports no additional psychiatric complaints Endocrine: Reports no additional endocrine complaints Hematologic/Lymphatic: Reports no additional hematologic/lymphatic complaints Allergic/Immunologic: Reports no additional allergic/immunologic complaints Reports system reviewed and no additional complaints, except as documented and Reports Abnormal speech present [facility] Past Medical History Medical History Diabetic retinopathy associated with type 2 diabetes mellitus Diabetic 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 associated with type 2 diabetes mellitus [facility] (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 of insulin Papillary microcarcinoma of thyroid Gastroparesis Post-surgical hypothyroidism Gallstones Uninodular goiter Arthritis Retinopathy Depression Diabetes mellitus with hyperglycemia Type 2 diabetes mellitus with diabetic neuropathy, unspecified Hyperlipidemia LDL goal <100 Essential hypertension Vitamin D deficiency Surgical History H/O colonoscopy H/O thyroidectomy Hx of eye surgery History of esophagogastroduodenoscopy (EGD) History of cholecystectomy Family History Family History Father No problems noted. Mother Diabetes mellitus Daughter Diabetes mellitus Social History Social History Household Members: Children Alcohol intake: current Alcohol intake frequency: does not drink Patient Tobacco Use Status: Never used Tobacco Smoked in Last 30 Days: No Use of substances other than those prescribed or required for medical reasons: No Advance Directives: No Advance Directives Information Provided: No Do you have a plan to hurt others: No Plan Patient : No Current occupational status: disabled Current occupation: right handed Physical Exam ED Vital Signs: Vital Signs - 24 hr 02/27/24 15:22 02/27/24 17:59 02/27/24 20:00 Temperature 100.1 F 99.9 F 99.2 F Pulse Rate 104 H 92 97 Respiratory Rate 18 16 16 Blood Pressure 141/65 H 131/61 148/64 H Pulse Oximetry 96 94 94 Oxygen Delivery Method Room Air Room Air Room Air 02/27/24 21:45 Temperature 100.4 F Pulse Rate 98 Respiratory Rate 16 Blood Pressure 118/54 L Pulse Oximetry 92 Oxygen Delivery Method Room Air BMI result Body Mass Index 25.9 Vital signs have been reviewed and appear to be correct. Blood pressure elevated. Heart rate normal. Respiratory rate normal. Temperature low-grade elevation, Oxygen saturation normal. Appearance: Alert. Oriented X3. No acute distress. Head: Normal external exam. Normocephalic. Atraumatic. No Kirk signs noted. No raccoon eyes noted Eyes: PERRLA. EOMI. Conjunctiva and sclera normal. Eyelids normal. ENT: TM's Normal. Pharynx normal. Uvula midline. Moist mucous membranes. No trismus noted. No drooling noted. No muffled voice noted. Neck: Normal inspection. Neck supple. FROM. No adenopathy. Thyroid Normal. No meningeal signs. No neck mass noted. CVS: Normal heart rate and rhythm. Heart sound normal. No murmurs noted. Pulses normal throughout. Respiratory: No respiratory distress. Painless inspiration. Breath sounds normal. No wheezes/rales/rhonchi noted. Chest nontender. No accessory muscle usage noted or decreased air movement noted. Abdomen: Soft, RLQ and RUQ tenderness with no rebound tenderness or guarding. Bowel sounds normal in all 4 quadrants. No distention noted. No organomegaly noted. No visible injury noted. Back: No CVA tenderness. Full range of motion noted. Skin: Skin warm and dry. Normal skin color. Normal skin turgor. No rashes/lesions/lacerations noted. Extremities: No lower extremity edema. Extremities exhibit normal range of motion. Extremities nontender. Neuro: Oriented X 3. Cranial nerve exam: II-XII are grossly intact No motor deficit. No sensory deficit. Reflexes normal. Course Course Course Narrative: RME performed by Sera Lockwood PA-C. Patient is a 58 year old assigned female at presenting to the emergency department with abdominal pain, nausea, and vomiting. Patient states over the last few days she has had worsening abdominal pain, nausea, and vomiting. Detailed physical exam and review of systems are deferred to the shower enclosure installer. EKG, labs, and swabs ordered. Patient placed back in the waiting room pending room availability and results. Reevaluation(s) Reevaluation #1: 58-year-old female came in with 3 days of lower abdominal pain CT is confirming diagnosis of acute appendicitis, patient meet criteria for SIRS lactic acid/culture was ordered will start the patient on Zosyn and fluids. Case discussed with Dr. Shepherd for further surgical evaluation. Time: 22:22 Medications Administered Discontinued Medications Generic Name Dose Route Start Last Admin Trade Name Freq PRN Reason Stop Dose Admin Al Hydroxide/Mg Hydroxide 30 ml 02/27/24 19:18 02/27/24 19:38 Magnesium Hydrox/Alum Hydrox 30 Ml Oral.Susp PO 02/27/24 19:19 30 ml ONCE ONE Administration Famotidine 20 mg 02/27/24 19:18 02/27/24 19:38 Famotidine/Pf 20 Mg/2 Ml Vial IVPUSH 02/27/24 19:19 20 mg ONCE ONE Administration Sodium Chloride 1,000 mls @ 999 mls/hr 02/27/24 19:18 02/27/24 20:48 Ns IV 02/27/24 20:18 Infused .Q1H1M ONE Infusion Ondansetron HCl 4 mg 02/27/24 19:18 02/27/24 19:38 Ondansetron Hcl 4 Mg/2 Ml Vial IVPUSH 02/27/24 19:19 4 mg ONCE ONE Administration Medical Decision Making Differential Diagnosis Differential Diagnoses: The differential diagnosis associated with the presentation includes (Acute appendicitis, colitis, diverticulitis, acute cholecystitis, pancreatitis, upper respiratory viral infection, dehydration, electrolyte derangement, severe anemia.) Admission/Observation Consideration of admission/observation: Escalation of care including admission/observation considered Consult Healthcare Provider Management of the patient was discussed with: Registered Dietetic Technician (Dr. Shepherd) Lab Data MDM Lab Attestation statement: I reviewed the patient's lab results. 02/27/24 15:36 02/27/24 15:36 Labs: Lab Results 02/27/24 02/27/24 Range/Units 15:36 18:33 WBC 12.6 H (4.8-10.8) X10*3/uL RBC 4.55 (4.20-5.50) X10*6/uL Hgb 13.0 (12.0-16.0) g/dl Hct 39.1 (37.0-47.0) % MCV 85.9 (80.0-98.0) fL MCH 28.6 (27.0-33.0) pg MCHC 33.2 (31.0-35.0) g/dl RDW 12.3 (11.0-16.0) % Plt Count 182 (160-400) X10*3/uL MPV 9.4 (9.4-12.3) fL Immature Gran % (Auto) 0.7 H (0.0-0.4) % Neut % (Auto) 84.1 H (45-73) % Lymph % (Auto) 6.8 L (20-40) % Brown % (Auto) 8.0 (2-11) % Eos % (Auto) 0.0 (0-4) % Baso % (Auto) 0.4 (0-2) % Lymph # (Auto) 0.9 L (1.2-4.9) X10*3/uL Brown # (Auto) 1.0 (0.1-1.2) X10*3/uL Eos # (Auto) 0.0 (0.0-0.4) X10*3/uL Baso # (Auto) 0.1 (0.0-0.2) X10*3/uL Abs Immat Gran (auto) 0.09 H (0.00-0.03) X10*3/uL Absolute Neuts (auto) 10.6 H (2.0-8.3) x10*3/uL Absolute Nucleated RBC 0.000 (0.0-0.012) X10*3/uL Nucleated RBC % (auto) 0.0 (0.0-0.2) /100WBC Sodium 138 (135-145) mmol/L Potassium 3.7 D (3.3-5.1) mmol/L Chloride 98 (96-108) mmol/L Carbon Dioxide 25 (22-29) mmol/L Anion Gap 19 (12-20) BUN 19 H (9-16) mg/dL Creatinine 0.75 (0.5-1.4) mg/dL Estim Creat Clear Calc 71.1 Estimated GFR > 60 Random Glucose 156 H (60-115) mg/dL Calcium 9.9 (8.4-10.2) mg/dL Magnesium 2.1 (1.6-2.6) mg/dL Total Bilirubin 0.9 (0.0-1.0) mg/dL AST 18 (5-31) U/L ALT 15 (0-31) U/L Alkaline Phosphatase 82 (39-117) U/L Troponin I High Sens 4.6 (<3.5-17.0) ng/L Total Protein 8.4 H (6.5-8.0) g/dL Albumin 4.1 (3.5-5.0) g/dL Beta-Hydroxybutyrate 0.86 H (0.02-0.27) mmol/L Urine Color Dark Yellow Urine Appearance Cloudy Urine pH 5.5 (5.0-9.0) Ur Specific [place] >= 1.030 H (1.005-1.025) Urine Protein 100 (2+) H (Neg-Trace) mg/dL Urine Glucose (UA) >=1000 H (Negative) mg/dL Urine Ketones 80 (Negative) mg/dL Urine Blood Negative (Negative) Urine Nitrite Negative (Negative) Ur Leukocyte Esterase Trace H (Negative) Urine RBC 0-2 (0-2) /HPF Urine WBC 6-10 (0-5) /HPF Ur Squamous Epith Cells 6-10 (0-2) /HPF Urine Bacteria None Seen (None Seen) Hyaline Casts 3-5 (0-2) /LPF Influenza Type A (PCR) NEGATIVE (Negative) Influenza Type B (PCR) NEGATIVE (Negative) RSV RNA Qual (PCR) NEGATIVE (Negative) SARS-CoV-2 RNA (RT-PCR) NEGATIVE (Negative) Independent Interpretation I performed an independent interpretation of an: CT Scan (Abdomen and pelvis:1. Acute appendicitis, with multiple peripheral foci of appendiceal gas, possibly intramural and may be seen with impending perforation. No organized periappendiceal fluid collection or extraluminal gas identified. 2. Diffuse hepatic steatosis. 3. Multivessel coronary arter) Radiology Impression Discussion of test interpretation with radiology: I have reviewed the radiologist's reading. Discharge Plan Discharge Clinical Impression: Acute appendicitis Patient Disposition: Admitted As Inpatient Print Language: Frisian
--- NOTE | 2024-02-27 15:23 | ECG_ITS ---
Test Reason : chest pain Blood Pressure : / mmHG Vent. Rate : 107 BPM Atrial Rate : 107 BPM P-R Int : 124 ms QRS Dur : 078 ms QT Int : 338 ms P-R-T Axes : 045 005 036 degrees QTc Int : 451 ms Sinus tachycardia Otherwise normal ECG No previous ECGs available Referred By: Sera Lockwood Electronically Signed By:TERENCE KENNEDY MD
[2024-02-27 15:48] LABS: MANUAL DIFF FLAG NO
[2024-02-27 15:51] LABS: Basophils Absolute Auto 0.1 X10*3/uL (0.0-0.2); Basophils Percent Auto 0.4 % (0-2); Hematocrit 39.1 % (37.0-47.0); Imm Gran Abs Auto 0.09 X10*3/uL (0.00-0.03); Imm Gran Pct Auto 0.7 % (0.0-0.4); Lymphocytes Absolute Auto 0.9 X10*3/uL (1.2-4.9); Lymphocytes Percent Auto 6.8 % (20-40); Mean Corpuscular HGB Conc 33.2 g/dl (31.0-35.0); Mean Corpuscular Hemoglobin 28.6 pg (27.0-33.0); Mean Corpuscular Volume 85.9 fL (80.0-98.0); Mean Platelet Volume 9.4 fL (9.4-12.3); Neutrophils Absolute Auto 10.6 x10*3/uL (2.0-8.3); Neutrophils Percent Auto 84.1 % (45-73); Platelet Count 182 X10*3/uL (160-400); Red Blood Count 4.55 X10*6/uL (4.20-5.50); Red Cell Distribution Width 12.3 % (11.0-16.0); White Blood Count 12.6 X10*3/uL (4.8-10.8)
[2024-02-27 16:13] LABS: Alanine Aminotransferase 15 U/L (0-31); Albumin Level 4.1 g/dL (3.5-5.0); Alkaline Phosphatase 82 U/L (39-117); Anion Gap 19 (12-20); Aspartate Amino Transferase 18 U/L (5-31); Beta-Hydroxybutyrate 0.86 mmol/L (0.02-0.27); Bilirubin Total 0.9 mg/dL (0.0-1.0); Blood Urea Nitrogen 19 mg/dL (9-16); Calcium 9.9 mg/dL (8.4-10.2); Carbon Dioxide 25 mmol/L (22-29); Chloride 98 mmol/L (96-108); Creatinine Clr Calc Pharmacy 71.1; Estimated Glomerular Filt Rate > 60; Glucose Random 156 mg/dL (60-115); Magnesium 2.1 mg/dL (1.6-2.6); Potassium 3.7 mmol/L (3.3-5.1); Sodium 138 mmol/L (135-145); Total Protein 8.4 g/dL (6.5-8.0)
[2024-02-27 16:21] LABS: Troponin-I High Sensitivity 4.6 ng/L (<3.5-17.0)
[2024-02-27 16:33] LABS: Influenza A PCR NEGATIVE (Negative); Influenza B PCR NEGATIVE (Negative); Resp Syncy Virus RNA Qual PCR NEGATIVE (Negative); SARS COV2 PCR INHOUSE NEGATIVE (Negative)
[2024-02-27 17:59] VITALS: BP 131/61; PULSE 92; RESP 16; TEMP 37.7; O2SAT 94
--- NOTE | 2024-02-27 18:02 | PC.NURSE ---
a&ox4. vss and up to date. pt presents to ED w/ RUQ/RLQ abd pain/n/v/d x 3 days. pt also verbalizes decreased PO intake. labs obtained in triage. pt seen by ED provider/aware of plan of care. pt waiting for CT to be completed at this time. no sob/wob noted. respirations even and unlabored. plan of care ongoing. call ramirez placed within reach.
[2024-02-27 18:40] LABS: Appearance Urine Cloudy; Color Urine Dark Yellow; Glucose Urine UA >=1000 mg/dL (Negative); Leukocyte Esterase Urine Trace (Negative); Nitrite Urine Negative (Negative); PH 5.5 (5.0-9.0); Specific Gravity - Urine >= 1.030 (1.005-1.025); UMIC TRIGGER UACC YES; Urine Blood Negative (Negative); Urine Ketones 80 mg/dL (Negative); Urine Protein 100 (2+) mg/dL (Neg-Trace)
[2024-02-27 19:33] LABS: Bacteria Urine None Seen (None Seen); RBC Urine 0-2 /HPF (0-2); UACC Culture Trigger YES
[2024-02-27] MEDS: ondansetron HCL 4 MG/2 ML VIAL IVPUSH (19:38)
[2024-02-27] MEDS: Famotidine/PF 20 MG/2 ML VIAL IVPUSH (19:38)
[2024-02-27] MEDS: Magnesium Hydrox/Alum Hydrox 30 ML ORAL.SUSP PO (19:38)
[2024-02-27] MEDS: 0.9 % Sodium Chloride 1,000 ML 999 ML IV ×2 (19:39→23:06)
--- NOTE | 2024-02-27 19:54 | PC.NURSE ---
pt requested medication for nausea and abd pain. aware. pt medicated per DEC. IV placed to LAC.
[2024-02-27 20:00] VITALS: BP 148/64; PULSE 97; RESP 16; TEMP 37.3; O2SAT 94
--- NOTE | 2024-02-27 20:40 | MHC.EDTECH ---
The lab has been called and they are going to add the urine culture onto the sample they already have
[2024-02-27 21:45] VITALS: BP 118/54; PULSE 98; RESP 16; TEMP 38; O2SAT 92
--- NOTE | 2024-02-27 22:06 | PC.NURSE ---
temp 100.4, aware
[2024-02-27 22:56] LABS: Lactic Acid 0.7 mmol/L (0.5-2.0)
[2024-02-27 23:07] VITALS: BP 124/54; PULSE 97; RESP 18; TEMP 37.2; O2SAT 91
[2024-02-27] MEDS: Piperacillin Sodium/Tazobactam 3.375 GM in 0.9 % Sodium Chloride 50 ML IV (23:13)
[2024-02-28] VITALS (14 sets, daily range): BP systolic 102–147; BP diastolic 51–67; PULSE 73–96; RESP 14–18; TEMP 36.1–37.2; O2SAT 92–98
[2024-02-28] MEDS: 0.9 % Sodium Chloride 1,000 ML 100 ML IVCONT ×2 (00:09→17:00)
--- NOTE | 2024-02-28 05:34 | PC.NURSE ---
pt resting with eyes closed. continues to bend arm while IV fluids are infusing
[2024-02-28] MEDS: Piperacillin Sodium/Tazobactam 3.375 GM in 0.9 % Sodium Chloride 50 ML IV ×3 (06:28→17:48)
--- NOTE | 2024-02-28 06:45 | PC.NURSE ---
pt self ambulated to bathroom. gait even and steady
--- NOTE | 2024-02-28 08:02 | P.HPGS_ITS ---
History of Present Illness History of Present Illness Date of Service: 02/28/24 Chief complaint: Abd pain Narrative: Lolly Hinds is a 58 year old female with diabetes and hypertension, in the ER because of the abdominal pain. She describes right lower quadrant pain for the past 4 days now. She says that this is now more constant. She describes having nausea and vomiting at home as well on and off. She denies any fever. She also says that she has had some loose stools. She has a history of cholecystectomy. She also has what appears to be a Pfannenstiel incision on the lower abdomen. Review of Systems Constitutional: Constitutional: Denies chills and Denies fever(s) Cardiovascular: Cardiovascular: Denies chest pain, Denies dyspnea and Denies dyspnea on exertion Respiratory: Respiratory: Denies cough, Denies dyspnea and Denies dyspnea on exertion Gastrointestinal: Gastrointestinal: Denies hematochezia, Denies change in bowel habits and Reports nausea Genitourinary: Genitourinary: Denies hematuria Musculoskeletal: Musculoskeletal: Denies back pain and Denies limited range of motion Neurologic: Denies focal weakness and Denies convulsions Psychiatric: Psychiatric: Denies depression and Denies mood swings PMFSH Past Medical History Medical History Diabetic retinopathy associated with type 2 diabetes mellitus Diabetic 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 associated with type 2 diabetes mellitus [facility] (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 of insulin Papillary microcarcinoma of thyroid Gastroparesis Post-surgical hypothyroidism Gallstones Uninodular goiter Arthritis Retinopathy Depression Diabetes mellitus with hyperglycemia Type 2 diabetes mellitus with diabetic neuropathy, unspecified Hyperlipidemia LDL goal <100 Essential hypertension Vitamin D deficiency Family History Family History Father No problems noted. Mother Diabetes mellitus Daughter Diabetes mellitus Surgical History Surgical History H/O colonoscopy H/O thyroidectomy Hx of eye surgery History of esophagogastroduodenoscopy (EGD) History of cholecystectomy Social History Social History Household Members: Children Alcohol intake: current Alcohol intake frequency: does not drink Patient Tobacco Use Status: Never used Tobacco Smoked in Last 30 Days: No Second Hand Smoke Exposure: No Use of substances other than those prescribed or required for medical reasons: No Are you DNR?: No Advance Directives: No Advance Directives Information Provided: No Advance Directives on File: No Do you have a plan to hurt others: No Plan Nutrition Risks: No Nutritional Risk Patient : No service: No Current occupational status: disabled Current occupation: right handed Meds Allergies Allergy/AdvReac Type Severity Reaction Status Date / Time metformin AdvReac Mild stomach Verified 02/27/24 15:25 upset Active Medications: Current Medications Sodium Chloride (Ns) 1,000 mls @ 100 mls/hr IVCONT .Q10H [facility] Last Admin: 02/28/24 00:09 Dose: 100 mls/hr Piperacillin Sod/Tazobactam (Sod 3.375 gm/ Sodium Chloride) 50 mls @ 100 mls/hr IV Q6H [facility] Last Infusion: 02/28/24 07:39 Dose: Infused Ondansetron HCl (Ondansetron Hcl 4 Mg/2 Ml Vial) 4 mg IVPUSH Q8H PRN PRN Reason: Nausea Sodium Chloride (0.9 % Sodium Chloride Flush 3 Ml Syringe) 3 ml IVFLUSH QSHIFT [facility] Last Admin: 02/28/24 07:42 Dose: Not Given Home Medications ?Medication ?Instructions ?Recorded ?Confirmed ?Last Taken ?Type aspirin 81 mg tablet,delayed 81 mg PO DAILY 07/20/20 02/28/24 04/22/21 09:00 History release (Adult Low Dose Aspirin) metformin 500 mg tablet See Rx Instructions PO DAILY 07/20/20 02/28/24 Unknown History hydrochlorothiazide 12.5 mg tablet 12.5 mg PO DAILY 01/07/22 02/28/24 Unknown History amlodipine 5 mg tablet 5 mg PO DAILY 03/03/22 02/28/24 Unknown History enalapril maleate 20 mg tablet 20 mg PO BEDTIME 03/03/22 02/28/24 Unknown History hydroxychloroquine 200 mg tablet 200 mg PO BID 09/09/22 02/28/24 Unknown History ibuprofen 800 mg tablet 800 mg PO TID PRN pain 09/09/22 02/28/24 Unknown History mirabegron 25 mg tablet,extended 25 mg PO DAILY 09/09/22 11/17/22 Unknown History release 24 hr (Myrbetriq) sertraline 100 mg tablet 100 mg PO QAM 09/09/22 02/28/24 Unknown History trazodone 100 mg tablet 100 mg PO BEDTIME PRN insomnia 09/09/22 02/28/24 Unknown History acetaminophen 500 mg tablet 500 mg PO Q6H PRN pain 11/17/22 02/28/24 Unknown History montelukast 10 mg tablet 10 mg PO BEDTIME 03/10/23 02/28/24 Unknown History cholecalciferol (vitamin D3) 25 50 mcg PO DAILY 02/28/24 02/28/24 Unknown History mcg (1,000 unit) capsule (Vitamin D3) dulaglutide 0.75 mg/0.5 mL 1.5 mg subcut QWEEK 02/28/24 02/28/24 Unknown History subcutaneous pen injector (Trulicity) empagliflozin 25 mg tablet 25 mg PO DAILY 02/28/24 02/28/24 Unknown History (Jardiance) omeprazole 20 mg capsule,delayed 20 mg PO DAILY 02/28/24 02/28/24 Unknown History release pioglitazone 30 mg tablet 30 mg PO DAILY 02/28/24 Unknown History Physical Exam Vital Signs: Vital Signs: Last Vital Signs Temp 98.9 F 02/28/24 07:34 Pulse 96 02/28/24 07:34 Resp 18 02/28/24 06:44 BP 129/61 02/28/24 07:34 Pulse Ox 92 02/28/24 07:34 O2 Del Method Room Air 02/28/24 07:34 BMI result Body Mass Index 25.9 Const: General: comfortable and no acute distress Orientation/consciousness: patient oriented x3 Neck: Neck: Yes no lymphadenopathy Resp: Auscultation: clear to auscultation bilaterally Cardio: Rhythm: regular rhythm GI: Other: Tender in right lower quadrant; seems to have a Pfannenstiel incision Palpation (GI): Soft to palpation, Tenderness to palpation present (GI), no guarding and not rigid Neuro: General: patient oriented x3 Results Results Labs: Short CBC 02/27/24 Range/Units 15:36 WBC 12.6 H (4.8-10.8) X10*3/uL Hgb 13.0 (12.0-16.0) g/dl Hct 39.1 (37.0-47.0) % Plt Count 182 (160-400) X10*3/uL BMP 02/27/24 15:36 Sodium 138 Potassium 3.7 D Chloride 98 Carbon Dioxide 25 BUN 19 H Creatinine 0.75 Calcium 9.9 Liver Function 02/27/24 Range/Units 15:36 Total Bilirubin 0.9 (0.0-1.0) mg/dL AST 18 (5-31) U/L ALT 15 (0-31) U/L Alkaline Phosphatase 82 (39-117) U/L Albumin 4.1 (3.5-5.0) g/dL Urine 02/27/24 Range/Units 18:33 Urine Color Dark Yellow Urine Appearance Cloudy Urine pH 5.5 (5.0-9.0) Ur Specific [place] >= 1.030 H (1.005-1.025) Urine Protein 100 (2+) H (Neg-Trace) mg/dL Urine Glucose (UA) >=1000 H (Negative) mg/dL Abdomen CT scan report/results: report reviewed and image reviewed CT scan - pelvis: report reviewed and image reviewed Additional studies: Laboratory Results WBC 12.6 X10*3/uL (4.8-10.8) H 02/27/24 15:36 RBC 4.55 X10*6/uL (4.20-5.50) 02/27/24 15:36 Hgb 13.0 g/dl (12.0-16.0) 02/27/24 15:36 Hct 39.1 % (37.0-47.0) 02/27/24 15:36 MCV 85.9 fL (80.0-98.0) 02/27/24 15:36 MCH 28.6 pg (27.0-33.0) 02/27/24 15:36 MCHC 33.2 g/dl (31.0-35.0) 02/27/24 15:36 RDW 12.3 % (11.0-16.0) 02/27/24 15:36 Plt Count 182 X10*3/uL (160-400) 02/27/24 15:36 MPV 9.4 fL (9.4-12.3) 02/27/24 15:36 Immature Gran % (Auto) 0.7 % (0.0-0.4) H 02/27/24 15:36 Neut % (Auto) 84.1 % (45-73) H 02/27/24 15:36 Lymph % (Auto) 6.8 % (20-40) L 02/27/24 15:36 [place] % (Auto) 8.0 % (2-11) 02/27/24 15:36 Eos % (Auto) 0.0 % (0-4) 02/27/24 15:36 Baso % (Auto) 0.4 % (0-2) 02/27/24 15:36 Lymph # (Auto) 0.9 X10*3/uL (1.2-4.9) L 02/27/24 15:36 [place] # (Auto) 1.0 X10*3/uL (0.1-1.2) 02/27/24 15:36 Eos # (Auto) 0.0 X10*3/uL (0.0-0.4) 02/27/24 15:36 Baso # (Auto) 0.1 X10*3/uL (0.0-0.2) 02/27/24 15:36 Abs Immat Gran (auto) 0.09 X10*3/uL (0.00-0.03) H 02/27/24 15:36 Absolute Neuts (auto) 10.6 x10*3/uL (2.0-8.3) H 02/27/24 15:36 Absolute Nucleated RBC 0.000 X10*3/uL (0.0-0.012) 02/27/24 15:36 Nucleated RBC % (auto) 0.0 /100WBC (0.0-0.2) 02/27/24 15:36 Sodium 138 mmol/L (135-145) 02/27/24 15:36 Potassium 3.7 mmol/L (3.3-5.1) D 02/27/24 15:36 Chloride 98 mmol/L (96-108) 02/27/24 15:36 Carbon Dioxide 25 mmol/L (22-29) 02/27/24 15:36 Anion Gap 19 (12-20) 02/27/24 15:36 BUN 19 mg/dL (9-16) H 02/27/24 15:36 Creatinine 0.75 mg/dL (0.5-1.4) 02/27/24 15:36 Estim Creat Clear Calc 71.1 02/27/24 15:36 Estimated GFR > 60 02/27/24 15:36 Random Glucose 156 mg/dL (60-115) H 02/27/24 15:36 Lactic Acid 0.7 mmol/L (0.5-2.0) 02/27/24 22:37 Calcium 9.9 mg/dL (8.4-10.2) 02/27/24 15:36 Magnesium 2.1 mg/dL (1.6-2.6) 02/27/24 15:36 Total Bilirubin 0.9 mg/dL (0.0-1.0) 02/27/24 15:36 AST 18 U/L (5-31) 02/27/24 15:36 ALT 15 U/L (0-31) 02/27/24 15:36 Alkaline Phosphatase 82 U/L (39-117) 02/27/24 15:36 Troponin I High Sens 4.6 ng/L (<3.5-17.0) 02/27/24 15:36 Total Protein 8.4 g/dL (6.5-8.0) H 02/27/24 15:36 Albumin 4.1 g/dL (3.5-5.0) 02/27/24 15:36 Beta-Hydroxybutyrate 0.86 mmol/L (0.02-0.27) H 02/27/24 15:36 Urine Color Dark Yellow 02/27/24 18:33 Urine Appearance Cloudy 02/27/24 18:33 Urine pH 5.5 (5.0-9.0) 02/27/24 18:33 Ur Specific [place] >= 1.030 (1.005-1.025) H 02/27/24 18:33 Urine Protein 100 (2+) mg/dL (Neg-Trace) H 02/27/24 18:33 Urine Glucose (UA) >=1000 mg/dL (Negative) H 02/27/24 18:33 Urine Ketones 80 mg/dL (Negative) 02/27/24 18:33 Urine Blood Negative (Negative) 02/27/24 18:33 Urine Nitrite Negative (Negative) 02/27/24 18:33 Ur Leukocyte Esterase Trace (Negative) H 02/27/24 18:33 Urine RBC 0-2 /HPF (0-2) 02/27/24 18:33 Urine WBC 6-10 /HPF (0-5) 02/27/24 18:33 Ur Squamous Epith Cells 6-10 /HPF (0-2) 02/27/24 18:33 Urine Bacteria None Seen (None Seen) 02/27/24 18:33 Hyaline Casts 3-5 /LPF (0-2) 02/27/24 18:33 Influenza Type A (PCR) NEGATIVE (Negative) 02/27/24 15:36 Influenza Type B (PCR) NEGATIVE (Negative) 02/27/24 15:36 RSV RNA Qual (PCR) NEGATIVE (Negative) 02/27/24 15:36 SARS-CoV-2 RNA (RT-PCR) NEGATIVE (Negative) 02/27/24 15:36 Impressions Abdomen/Pelvis CT 02/27/24 19:28 IMPRESSION: 1. Acute appendicitis, with multiple peripheral foci of appendiceal gas, possibly intramural and may be seen with impending perforation. No organized periappendiceal fluid collection or extraluminal gas identified. 2. Diffuse hepatic steatosis. 3. Multivessel coronary artery calcifications. Correlate with cardiac risk factors. Assessment and Plan (1) Acute appendicitis: Status: Acute 58 year female with multiple medical problems including diabetes and hypertension, with right lower quadrant pain. I have reviewed her CAT scan and this shows significant appendiceal inflammatory changes and appendicoliths consistent with acute appendicitis. I explained to her that it is best to proceed with the appendectomy. I discus sed the technique of laparoscopic appendectomy as well as open appendectomy I reviewed the risks including but not limited to bleeding, infections, injury to other organs including bowel and urinary tract, line leak, blood clots, pneumonia, abscess, as well as the benefits and alternatives She says she understands and wants to proceed Her was with her during the discussion. An supervisor slashing department was also used for the discussion. Quality Stroke Does the patient have a stroke diagnosis?: No VTE Prior VTE?: No VTE Risk Level:: Surgical - low VTE Device Contraindication: Treatment Not Indicated VTE Drug Contraindication: Treatment Not Indicated Procedures Date of Service Date of Service: 02/28/24
--- NOTE | 2024-02-28 11:26 | MHC.CM.PN ---
pt livesa with ,dgter and grdter ,has own ride home will not need services when dcd
[2024-02-28 12:29] LABS: Glucose, Whole Blood 144 mg/dL (60-115)
--- NOTE | 2024-02-28 12:50 | P.CONAN_ITS ---
HPI - Anesthesia Eval Consult details Narrative: 58 yo F admitted with acute appendicitis Anesthesia Pre-Procedure Meds Is the patient on any of the following meds?: GLP1/DPP4 (trulicity) and SGLT2 Inhib (jardiance) If yes to any meds - educate patient: Pt education - increased risk of aspiration and/or euvolemic DKA PMFSH Active Problems Active Problems: All Active Problems Acute appendicitis (Acute) Constipation (Acute) Tubular adenoma of colon (Acute) Extensor tenosynovitis of right wrist (Acute) Breast mass, right (Acute) Mass of soft tissue of right upper extremity (Acute) Right wrist pain (Acute) Diabetic retinopathy associated with type 2 diabetes mellitus (Acute) Diabetic 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 associated with type 2 diabetes mellitus (Acute) residential (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 of insulin (Acute) Papillary microcarcinoma of thyroid (Acute) Gastroparesis (Acute) Tubular adenoma of colon (Acute) IBS (irritable bowel syndrome) (Acute) Esophageal spasm (Acute) Functional burping disorder (Acute) GERD (gastroesophageal reflux disease) (Acute) Diabetes mellitus with hyperglycemia (Acute) Type 2 diabetes mellitus with diabetic neuropathy, unspecified (Acute) Hyperlipidemia LDL goal <100 (Acute) Post-surgical hypothyroidism (Acute) Essential hypertension (Acute) Past Medical History Medical History Diabetic retinopathy associated with type 2 diabetes mellitus 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 Mother Diabetes mellitus Daughter Diabetes mellitus Family history of problems with anesthesia: No Surgical History Surgical History H/O colonoscopy H/O thyroidectomy Hx of eye surgery History of esophagogastroduodenoscopy (EGD) History of cholecystectomy History of Problems with Anesthesia: No Social History Social History Household Members: Children Alcohol intake: current Alcohol intake frequency: does not drink Patient Tobacco Use Status: Never used Tobacco Smoked in Last 30 Days: No Second Hand Smoke Exposure: No Use of substances other than those prescribed or required for medical reasons: No Are you DNR?: No Advance Directives: No Advance Directives Information Provided: No Advance Directives on File: No Do you have a plan to hurt others: No Plan Nutrition Risks: No Nutritional Risk Patient : No service: No Current occupational status: disabled Current occupation: right handed Meds Allergies Allergy/AdvReac Type Severity Reaction Status Date / Time metformin AdvReac Mild stomach Verified 02/27/24 15:25 upset Active Medications: Current Medications Sodium Chloride (Ns) 1,000 mls @ 100 mls/hr IVCONT .Q10H [facility] Last Admin: 02/28/24 09:20 Dose: Not Given Piperacillin Sod/Tazobactam (Sod 3.375 gm/ Sodium Chloride) 50 mls @ 100 mls/hr IV Q6H [facility] Last Admin: 02/28/24 11:32 Dose: 100 mls/hr Ondansetron HCl (Ondansetron Hcl 4 Mg/2 Ml Vial) 4 mg IVPUSH Q8H PRN PRN Reason: Nausea Sodium Chloride (0.9 % Sodium Chloride Flush 3 Ml Syringe) 3 ml IVFLUSH QSHIFT [facility] Last Admin: 02/28/24 07:42 Dose: Not Given Home Medications ?Medication ?Instructions ?Recorded ?Confirmed ?Last Taken ?Type aspirin 81 mg tablet,delayed 81 mg PO DAILY 07/20/20 11/17/22 04/22/21 09:00 History release (Adult Low Dose Aspirin) baclofen 10 mg tablet 10 mg PO DAILY 07/20/20 11/17/22 Unknown History enalapril maleate 10 mg tablet 10 mg PO DAILY 07/20/20 12/05/21 Unknown History metformin 500 mg tablet See Rx Instructions PO DAILY 07/20/20 01/07/22 Unknown History hydrochlorothiazide 12.5 mg tablet 12.5 mg PO QAM 01/07/22 11/17/22 Unknown History amlodipine 5 mg tablet 5 mg PO QAM 03/03/22 11/17/22 Unknown History enalapril maleate 20 mg tablet 20 mg PO BEDTIME 03/03/22 11/17/22 Unknown History estradiol 0.01% (0.1 mg/gram) 1 g vaginal 2XW 03/03/22 Unknown History vaginal cream alcohol swabs (Alcohol Prep Pads) 0 pad topical TID 09/09/22 Unknown History hydroxychloroquine 200 mg tablet 200 mg PO 09/09/22 11/17/22 Unknown History hydroxyzine pamoate 25 mg capsule 25 mg PO BID PRN anxiety 09/09/22 11/17/22 Unknown History ibuprofen 800 mg tablet 800 mg PO TID PRN pain 09/09/22 Unknown History mirabegron 25 mg tablet,extended 25 mg PO QAM 09/09/22 11/17/22 Unknown History release 24 hr (Myrbetriq) sertraline 100 mg tablet 100 mg PO QAM 09/09/22 11/17/22 Unknown History trazodone 100 mg tablet 100 mg PO BEDTIME PRN insomnia 09/09/22 11/17/22 Unknown History acetaminophen 500 mg tablet 500 mg PO Q6H PRN pain 11/17/22 11/17/22 Unknown History albuterol sulfate 90 mcg/actuation 2 puff inhalation Q6H PRN wheezing 03/10/23 Unknown History aerosol inhaler (Ventolin HFA) fluticasone propionate 50 1 - 2 spray intranasal QAM 03/10/23 Unknown History mcg/actuation nasal spray,suspension montelukast 10 mg tablet 10 mg PO BEDTIME 03/10/23 Unknown History Exam Exam Date and Time: February 28, 2024 1245 Height,Weight and Vital Signs: Height 5 ft 2 in Weight 64.2 kg Last Vital Signs Temp 97.0 F 02/28/24 12:33 Pulse 93 02/28/24 12:33 Resp 16 02/28/24 12:33 BP 147/67 H 02/28/24 12:33 Pulse Ox 98 02/28/24 12:33 O2 Del Method Room Air 02/28/24 12:33 Pertinent Lab Results Pertinent Lab Results: Laboratory Tests 02/27/24 02/27/24 02/27/24 15:36 18:33 22:37 WBC 12.6 H RBC 4.55 Hgb 13.0 Hct 39.1 MCV 85.9 MCH 28.6 MCHC 33.2 RDW 12.3 Plt Count 182 MPV 9.4 Immature Gran % (Auto) 0.7 H Neut % (Auto) 84.1 H Lymph % (Auto) 6.8 L [place] % (Auto) 8.0 Eos % (Auto) 0.0 Baso % (Auto) 0.4 Lymph # (Auto) 0.9 L [place] # (Auto) 1.0 Eos # (Auto) 0.0 Baso # (Auto) 0.1 Abs Immat Gran (auto) 0.09 H Absolute Neuts (auto) 10.6 H Absolute Nucleated RBC 0.000 Nucleated RBC % (auto) 0.0 Sodium 138 Potassium 3.7 D Chloride 98 Carbon Dioxide 25 Anion Gap 19 BUN 19 H Creatinine 0.75 Estim Creat Clear Calc 71.1 Estimated GFR > 60 POC Glucose Random Glucose 156 H Lactic Acid 0.7 Calcium 9.9 Magnesium 2.1 Total Bilirubin 0.9 AST 18 ALT 15 Alkaline Phosphatase 82 Troponin I High Sens 4.6 Total Protein 8.4 H Albumin 4.1 Beta-Hydroxybutyrate 0.86 H Urine Color Dark Yellow Urine Appearance Cloudy Urine pH 5.5 Ur Specific [place] >= 1.030 H Urine Protein 100 (2+) H Urine Glucose (UA) >=1000 H Urine Ketones 80 Urine Blood Negative Urine Nitrite Negative Ur Leukocyte Esterase Trace H Urine RBC 0-2 Urine WBC 6-10 Ur Squamous Epith Cells 6-10 Urine Bacteria None Seen Hyaline Casts 3-5 Influenza Type A (PCR) NEGATIVE Influenza Type B (PCR) NEGATIVE RSV RNA Qual (PCR) NEGATIVE SARS-CoV-2 RNA (RT-PCR) NEGATIVE 02/28/24 12:25 WBC RBC Hgb Hct MCV MCH MCHC RDW Plt Count MPV Immature Gran % (Auto) Neut % (Auto) Lymph % (Auto) [place] % (Auto) Eos % (Auto) Baso % (Auto) Lymph # (Auto) [place] # (Auto) Eos # (Auto) Baso # (Auto) Abs Immat Gran (auto) Absolute Neuts (auto) Absolute Nucleated RBC Nucleated RBC % (auto) Sodium Potassium Chloride Carbon Dioxide Anion Gap BUN Creatinine Estim Creat Clear Calc Estimated GFR POC Glucose 144 H Random Glucose Lactic Acid Calcium Magnesium Total Bilirubin AST ALT Alkaline Phosphatase Troponin I High Sens Total Protein Albumin Beta-Hydroxybutyrate Urine Color Urine Appearance Urine pH Ur Specific [place] Urine Protein Urine Glucose (UA) Urine Ketones Urine Blood Urine Nitrite Ur Leukocyte Esterase Urine RBC Urine WBC Ur Squamous Epith Cells Urine Bacteria Hyaline Casts Influenza Type A (PCR) Influenza Type B (PCR) RSV RNA Qual (PCR) SARS-CoV-2 RNA (RT-PCR) Airway Mallampati Class: II Neck ROM: Full Loose/Missing/Broken Teeth: Yes (a few missing teeth but patient denies any loose or broken teeth) Heart: S1S2 Lungs: CTAB Assessment and Plan Assessment Anesthesia Assessment: Anesthesia Plan Discussed and Chart Reviewed Final Anesthetic Review Family History of Problems with Anesthesia: No History of Problems with Anesthesia: No NPO: Yes ASA Class: III and Emergency Final Preanesthetic Review: No Changes in Pt Med Stat, Meds/Allgs Chart Reviewed, Consent Obtained/Reviewed and Anes Risks/Benef Reviewed Patient Risk: Intermediate Procedure Risk: Low Anesthetic Plan Anesthetic Plan: GA and Agree w/ Assess. and Plan Disposition: Standard PACU
--- NOTE | 2024-02-28 15:06 | PHA.MEDREC ---
Pharmacy Consult ? Medication Reconciliation Pharmacy has completed the medication reconciliation. Patient and were poor historians. Utilized regulatory affairs internship to ask to bring a list in. Utilized pharmacy claims and list from med box.
--- NOTE | 2024-02-28 15:13 | P.OP_ITS ---
Operative Note Operative Note Date of Service: 02/28/24 Narrative: Preop diagnosis: Acute appendicitis Postop diagnosis: Acute appendicitis, perforated, with severe inflammatory changes, extraluminal appendicoliths; paracececal appendix Procedure: Attempted laparoscopic appendectomy, converted to open appendectomy via midline incision Surgeon: Joni Hatfield MD The patient is a 58-year-old female admitted early this morning because of right lower quadrant pain with findings consistent with acute appendicitis. Review of her CT scan shows that there was severe inflammatory changes around the area of the appendix and the cecum, suggestive of perforated appendicitis. She understood the technique of laparoscopic appendectomy as well as open appendectomy. She was aware of the risks, benefits, and alternatives. She was brought to the operating room. She was placed under general anesthesia via endotracheal tube. A Little catheter was inserted. The abdomen was prepped and draped in the usual sterile fashion. A surgical time-out was done. The patient was receiving scheduled IV antibiotics I made a short supraumbilical incision using blade 15 and this was carried down through the full-thickness of the skin and subcutaneous fat. The patient had very thick subcutaneous fat so we had to go through this before we were able to visualize the fascia. The fascia was incised. The peritoneum was entered. Through this incision a Ward port was introduced. Pneumoperitoneum was introduced to a pressure of 15 mm Hg. From here on the rest of the procedure was done under vision with the 10 mm laparoscope. With laparoscopic visualization I inserted a 5/12 mm port in the left lower quadrant through a small stab incision. A 5 mm port was introduced a small incision in the suprapubic margin. Graspers were placed through this working ports. The patient was placed in a head down and [id number] position. With laparoscopic visualization I due to then reflect bowel loops away from the right lower quadrant. The cecum was seen and this was very inflamed. There was note of a lot of indurated and severely inflamed, phlegmonous tissue lateral to the cecum. I attempted to bluntly dissected in the graspers. However, there was note of severe induration and inflammation and we could not really peel off the phlegmonous tissue from this area. Moreover, during dissection we had noticed that there were appendicoliths surrounding the area as well as murky peritoneal fluid consistent with perforation of the appendix. I therefore decided to convert to an open procedure I removed all ports. I insufflated through the port sites prior to this. I m tucker a midline incision on the lower abdomen using blade 10 and extended this a little just past the umbilicus to allow good visualization in view of the patient's habitus. This was carried down through the full-thickness of the thick subcutaneous fat the fascia. The fascia was incised and this fascial incision extended to optimize the length of the skin incision. The Bookwalter retractors were positioned. I applied lap pads to retract the bowel loops away from the right lower quadrant and achieve good exposure of the cecum. Again there was note of what appeared to be phlegmonous changes lateral to the cecum and surrounding this. We had to do some careful blunt dissection my finger separate this phlegmonous tissue. We had to proceed very slowly in view of the friability of the tissue due to severe inflammatory changes. Eventually, I was able to see what appeared to the the base of the appendix. However, distal to the base was note of severe inflammatory changes with note of purulent fluid, appendicoliths, and murky peritoneal fluid. We could not clearly define the appendix was past the base but distally I was able to visualize the rest of the appendix in a pericecal location. This has also markedly adherent to the cecum but with careful blunt dissection with the index finger and my thumb I was able to carefully separate this. I used the LigaSure to divide what ever mesoappendix I could identify and there was note of significant oozing from the area because of the severe inflammatory process The appendix was very inflamed and indurated and this seemed to be disconnected from the base due to the severe friability and inflammation as well as with presence of the perforation. I applied a right angle clamp across the base. I tied the base the a Polysorb 2-0 tie 3 times. I divided whenever basic could identify above these clamps and this was sent along with the specimen. I was eventually able to carefully separate the identifiable appendix with a combination of blunt dissection and sharp dissection with the LigaSure. This was sent for immediate gross exam to make sure that we had appendix as a specimen. I copiously irrigated. I suctioned out the irrigant fluid. I examined the rest of the cecum and I did not notice any bubbling or perforation or injury I position a ANKIT drain alongside this right gutter and this was brought out through an exit site on the right lower quadrant through a small stab incision. The ANKIT drain was secured with a nylon 3-0 is a stitch. After copious irrigation, I then proceeded to close the fascia with a running Maxon 1 stitch. Skin closure was closed with skin jesus. I received a call from the pathologist confirming that 1 of the specimens was indeed the appendix which appeared to be perforated, severely inflamed. The incisions were infiltrated with Marcaine 0.5% for postop analgesia. Dressings were applied. The procedure was completed The patient tolerated procedure well. There were no immediate complications. Initial and final counts of sponges and instruments were correct. Estimated blood loss was about 75 cc. The patient was extubated without difficulty and transferred to the recovery room with stable vital signs.
--- NOTE | 2024-02-28 15:57 | PM.EVENT ---
Event Note Date of Service: 02/29/24 Event Note: Seen postop Underwent open appendectomy via midline incision Appendix phlegmonous, with perforation, intraluminal appendicoliths seen, severe inflammatory process surrounding this Drain in place - serosanguineous Pain management IV antibiotics On clear liquids Above discussed with Prince and sister Time Spent With Patient Time: Total time managing care of this patient today ____ minutes.
--- NOTE | 2024-02-28 16:49 | P.CONHOSP_ITS ---
History of Present Illness Data of Consult Service Date: 02/28/24 Primary Care Provider: Roel Rock MD HPI 58-year-old woman with history of hypertension, diabetes admitted by general surgery and is status post laparoscopic appendectomy converted to open appendectomy. Surgery was unremarkable other than having to convert to open appendectomy. Patient has a moderate amount of pain. She has been able to eat and drink without any nausea or vomiting she is currently hemodynamically stable with no other acute medical problems. Review of Systems 2 Review of Systems: Denies any recent fever chills or decrease in appetite respiratory denies any shortness of breath or cough cardiovascular denies chest pain gastrointestinal denies any dysphagia abdominal pain nausea vomiting or diarrhea genitourinary denies any dysuria frequency or hematuria musculoskeletal denies any joint pain or swelling neuropsych denies any weakness or seizures all other systems reviewed are negative [facility] Medical History Diabetic retinopathy associated with type 2 diabetes mellitus Diabetic 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 associated with type 2 diabetes mellitus 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 Mother Diabetes mellitus Daughter Diabetes mellitus Surgical History H/O colonoscopy H/O thyroidectomy Hx of eye surgery History of esophagogastroduodenoscopy (EGD) History of cholecystectomy Social History Household Members: Children Alcohol intake: current Alcohol intake frequency: does not drink Patient Tobacco Use Status: Never used Tobacco Smoked in Last 30 Days: No Second Hand Smoke Exposure: No Use of substances other than those prescribed or required for medical reasons: No Are you DNR?: No Advance Directives: No Advance Directives Information Provided: No Advance Directives on File: No Do you have a plan to hurt others: No Plan Nutrition Risks: No Nutritional Risk Patient : No service: No Current occupational status: disabled Current occupation: right handed Meds Allergies Allergy/AdvReac Type Severity Reaction Status Date / Time metformin AdvReac Mild stomach Verified 02/27/24 15:25 upset Active Medications: Current Medications Al Hydroxide/Mg Hydroxide (Magnesium Hydrox/Alum Hydrox 30 Ml Oral.Susp) 30 ml PO Q4H PRN PRN Reason: Heartburn/Nausea Albuterol Sulfate (Albuterol Sulfate 90 Mcg 8 Gm Inhaler) 2 puff INHALE RQ6H PRN PRN Reason: Wheezing Docusate Sodium (Docusate Sodium 100 Mg Capsule) 100 mg PO BID [facility] Gabapentin (Gabapentin 300 Mg Capsule) 300 mg PO BEDTIME [facility] Glucose (Glucose Gel 15 Gm Gel..Gram.) 15 gm PO Q15M PRN; Protocol PRN Reason: per Hypoglycemia Standing Ord. Heparin Sodium (Porcine) (Heparin Sodium,Porcine 5,000 Unit/Ml Vial) 5,000 unit SUBCUT Q8H [facility] Sodium Chloride (Ns) 1,000 mls @ 100 mls/hr IVCONT .Q10H [facility] Last Infusion: 02/28/24 16:17 Dose: Infused Piperacillin Sod/Tazobactam (Sod 3.375 gm/ Sodium Chloride) 50 mls @ 100 mls/hr IV Q6H [facility] Last Infusion: 02/28/24 16:16 Dose: Infused Acetaminophen (Ofirmev) 1,000 mg in 100 mls @ 400 mls/hr IV Q6H [facility] Dextrose (D10) 250 mls @ 750 mls/hr IV Q15M PRN; Protocol PRN Reason: per Hypoglycemia Standing Ord. Insulin Human Lispro (Insulin Lispro 100 Unit/Ml 3 Ml Vial) 0 unit SUBCUT QIDACHS [facility]; Protocol Levothyroxine Sodium (Levothyroxine Sodium 88 Mcg Tablet) 88 mcg PO DAILY@0600 [facility] Mirabegron (Mirabegron 25 Mg Tab.Er.24h) 25 mg PO DAILY [facility] Montelukast Sodium (Montelukast Sodium 10 Mg Tablet) 10 mg PO BEDTIME [facility] Morphine Sulfate (Morphine Sulfate 2 Mg/Ml Cartridge) 4 mg IVPUSH Q3H PRN; Protocol PRN Reason: Pain, Severe (Pain Scale 7-10) Omeprazole (Omeprazole 20 Mg Capsule.Dr) 20 mg PO DAILY@0630 [facility] Ondansetron HCl (Ondansetron Hcl 4 Mg/2 Ml Vial) 4 mg IVPUSH Q8H PRN PRN Reason: Nausea Oxycodone HCl (Oxycodone Hcl Immed Release 5 Mg Tablet) 10 mg PO Q4H PRN PRN Reason: Pain, Moderate(Pain Scale 4-6) Sertraline HCl (Sertraline Hcl 100 Mg Tablet) 100 mg PO DAILY [facility] Sodium Chloride (0.9 % Sodium Chloride Flush 3 Ml Syringe) 3 ml IVFLUSH QSHIFT [facility] Last Admin: 02/28/24 07:42 Dose: Not Given Trazodone HCl (Trazodone Hcl 100 Mg Tablet) 100 mg PO BEDTIME PRN PRN Reason: insomnia Home Medications ?Medication ?Instructions ?Recorded ?Confirmed ?Last Taken ?Type aspirin 81 mg tablet,delayed 81 mg PO DAILY 07/20/20 02/28/24 04/22/21 09:00 History release (Adult Low Dose Aspirin) metformin 500 mg tablet See Rx Instructions PO DAILY 07/20/20 02/28/24 Unknown History hydrochlorothiazide 12.5 mg tablet 12.5 mg PO DAILY 01/07/22 02/28/24 Unknown History amlodipine 5 mg tablet 5 mg PO DAILY 03/03/22 02/28/24 Unknown History enalapril maleate 20 mg tablet 20 mg PO BEDTIME 03/03/22 02/28/24 Unknown History hydroxychloroquine 200 mg tablet 200 mg PO BID 09/09/22 02/28/24 Unknown History ibuprofen 800 mg tablet 800 mg PO TID PRN pain 09/09/22 02/28/24 Unknown History mirabegron 25 mg tablet,extended 25 mg PO DAILY 09/09/22 11/17/22 Unknown History release 24 hr (Myrbetriq) sertraline 100 mg tablet 100 mg PO QAM 09/09/22 02/28/24 Unknown History trazodone 100 mg tablet 100 mg PO BEDTIME PRN insomnia 09/09/22 02/28/24 Unknown History acetaminophen 500 mg tablet 500 mg PO Q6H PRN pain 11/17/22 02/28/24 Unknown History montelukast 10 mg tablet 10 mg PO BEDTIME 03/10/23 02/28/24 Unknown History cholecalciferol (vitamin D3) 25 50 mcg PO DAILY 02/28/24 02/28/24 Unknown History mcg (1,000 unit) capsule (Vitamin D3) dulaglutide 0.75 mg/0.5 mL 1.5 mg subcut QWEEK 02/28/24 02/28/24 Unknown History subcutaneous pen injector (Trulicity) empagliflozin 25 mg tablet 25 mg PO DAILY 02/28/24 02/28/24 Unknown History (Jardiance) omeprazole 20 mg capsule,delayed 20 mg PO DAILY 02/28/24 02/28/24 Unknown History release pioglitazone 30 mg tablet 30 mg PO DAILY 02/28/24 Unknown History Physical Exam 2 Vital Signs and Narrative: Vital Signs: Last Vital Signs Temp 96.9 F 02/28/24 16:13 Pulse 85 02/28/24 16:13 Resp 18 02/28/24 16:13 BP 122/65 02/28/24 16:13 Pulse Ox 97 02/28/24 16:13 O2 Del Method Nasal Cannula 02/28/24 16:13 O2 Flow Rate 2 02/28/24 16:13 BMI result Body Mass Index 25.9 Appearing in no acute distress head is normocephalic atraumatic eyes pupils are PERRLA sclera is anicteric mouth throat mucous membranes are intact and moist neck is supple no lymphadenopathy, no JVD noted lung sounds are clear to auscultation heart regular rate rhythm, clear S1, S2 positive bowel sounds, abdominal dressing dry and intact, ANKIT drain noted and draining serosanguineous fluid neuro patient is alert x3, no focal deficits Results Labs 02/27/24 15:36 02/27/24 15:36 Labs: Laboratory Results - last 24 hr 02/27/24 02/27/24 02/28/24 18:33 22:37 12:25 POC Glucose 144 H Lactic Acid 0.7 Urine Color Dark Yellow Urine Appearance Cloudy Urine pH 5.5 Ur Specific [place] >= 1.030 H Urine Protein 100 (2+) H Urine Glucose (UA) >=1000 H Urine Ketones 80 Urine Blood Negative Urine Nitrite Negative Ur Leukocyte Esterase Trace H Urine RBC 0-2 Urine WBC 6-10 Ur Squamous Epith Cells 6-10 Urine Bacteria None Seen Hyaline Casts 3-5 Imaging Radiologist's Impressions: Impressions Abdomen/Pelvis CT 02/27/24 19:28 IMPRESSION: 1. Acute appendicitis, with multiple peripheral foci of appendiceal gas, possibly intramural and may be seen with impending perforation. No organized periappendiceal fluid collection or extraluminal gas identified. 2. Diffuse hepatic steatosis. 3. Multivessel coronary artery calcifications. Correlate with cardiac risk factors. Assessment and Plan (1) Acute appendicitis: Status: Acute Plan 58-year-old woman status post open appendectomy secondary to acute appendicitis with perforation and severe inflammatory changes Open appendectomy Management as per surgical team Pain management Hypertension Stable blood pressure Continue amlodipine in the morning Add enalapril and hydrochlorothiazide as blood pressure allows in light of surgical procedure Diabetes mellitus type 2 Sliding scale Diabetic neuropathy Continue gabapentin Hypothyroidism May continue levothyroxine GERD Continue PPI Mental health Continue sertraline and trazodone Hyperlipidemia Hold aspirin and statin for now DVT prophylaxis with heparin Full code Medical consultation complete. Will sign off
[2024-02-28 16:50] LABS: Glucose, Whole Blood 161 mg/dL (60-115)
[2024-02-28] MEDS: Insulin Lispro 100 UNIT/ML 3 ML VIAL SUBCUT ×2 (17:00→20:46)
[2024-02-28] MEDS: Morphine Sulfate 2 MG/ML CARTRIDGE 4 MG IVPUSH ×2 (17:00→20:58)
[2024-02-28] MEDS: Acetaminophen 1,000 MG/100 ML PIGGYBACK 400 MG IV ×2 (17:01→22:35)
[2024-02-28] MEDS: 0.9 % Sodium Chloride Flush 3 ML SYRINGE IVFLUSH (17:10)
[2024-02-28] MEDS: Sertraline HCL 100 MG TABLET PO (17:25)
[2024-02-28 20:34] LABS: Glucose, Whole Blood 278 mg/dL (60-115)
[2024-02-28] MEDS: Montelukast Sodium 10 MG TABLET PO (20:46)
[2024-02-28] MEDS: Docusate Sodium 100 MG CAPSULE PO (20:46)
[2024-02-28] MEDS: traZODone HCL 100 MG TABLET PO (20:58)
[2024-02-29] MEDS: Piperacillin Sodium/Tazobactam 3.375 GM in 0.9 % Sodium Chloride 50 ML IV ×5 (00:37→23:06)
[2024-02-29 04:00] VITALS: BP 142/63; PULSE 78; RESP 16; TEMP 36; O2SAT 95
[2024-02-29] MEDS: Acetaminophen 1,000 MG/100 ML PIGGYBACK 400 MG IV ×3 (04:19→16:24)
[2024-02-29] MEDS: 0.9 % Sodium Chloride 1,000 ML 100 ML IVCONT ×2 (04:23→15:03)
[2024-02-29 04:49] VITALS: RESP 18
[2024-02-29] MEDS: Levothyroxine Sodium 88 MCG TABLET PO (06:02)
[2024-02-29] MEDS: Omeprazole 20 MG CAPSULE.DR PO (06:02)
[2024-02-29 07:38] LABS: Glucose, Whole Blood 196 mg/dL (60-115)
[2024-02-29 08:00] VITALS: BP 109/55; PULSE 78; RESP 16; TEMP 36.2; O2SAT 98
[2024-02-29] MEDS: amLODIPine Besylate 5 MG TABLET PO (08:30)
[2024-02-29] MEDS: Docusate Sodium 100 MG CAPSULE PO ×2 (08:30→19:43)
[2024-02-29] MEDS: Sertraline HCL 100 MG TABLET PO (08:30)
[2024-02-29] MEDS: Mirabegron 25 MG TAB.ER.24H PO (08:30)
[2024-02-29] MEDS: 0.9 % Sodium Chloride Flush 3 ML SYRINGE IVFLUSH ×3 (08:30→19:45)
[2024-02-29] MEDS: Insulin Lispro 100 UNIT/ML 3 ML VIAL SUBCUT ×3 (08:31→20:51)
[2024-02-29 08:44] VITALS: O2SAT 93
--- NOTE | 2024-02-29 08:50 | HO.POSTANES ---
Post Anesthesia Evaluation Post Anesthesia Evaluation Date of Service: 02/29/24 Vital Signs: Vital Signs Temp Pulse Resp BP Pulse Ox O2 Del Method O2 Flow Rate 02/29/24 08:44 93 Room Air 02/29/24 08:00 97.1 F 78 16 109/55 L 98 Nasal Cannula 2 02/29/24 04:49 18 02/29/24 04:00 96.8 F 78 16 142/63 H 95 Nasal Cannula 2 02/28/24 20:58 18 02/28/24 20:56 73 18 118/61 Anesthesia: General Endotracheal-GETA Mental Status: Awake Pain Control: Satisfactory Nausea/Vomiting: None Hydration: Adequate Anesthesia-Related Issues: No Anes. Related Issues
--- NOTE | 2024-02-29 09:01 | PM.PNGS ---
Subjective Subjective Date of Service: 02/29/24 <Tamiko Katz PA-C - Last Filed: 02/29/24 09:05> 02/29/24 <Joni Hatfield MD - Last Filed: 02/29/24 09:23> Interval history: Hungry this morning. Tolerating clear liquids without nausea or vomiting. Passing flatus. Pain controlled. <Tamiko Katz PA-C - Last Filed: 02/29/24 09:05> Physical Exam Vital Signs: Vital Signs: Last Vital Signs Temp 97.1 F 02/29/24 08:00 Pulse 78 02/29/24 08:00 Resp 16 02/29/24 08:00 BP 109/55 L 02/29/24 08:00 Pulse Ox 93 02/29/24 08:44 O2 Del Method Room Air 02/29/24 08:44 O2 Flow Rate 2 02/29/24 08:00 BMI result Body Mass Index 25.9 <INGE Borrero Last Filed: 02/29/24 09:05> Const: General: comfortable, no acute distress and alert <INGE Borrero Last Filed: 02/29/24 09:05> Orientation/consciousness: patient oriented x3 <INGE Borrero Last Filed: 02/29/24 09:05> Resp: Effort & Inspection: normal respiratory effort <INGE Borrero Last Filed: 02/29/24 09:05> GI: Other: ANKIT drain serosanguineous <Tamiko Katz PA-C - Last Filed: 02/29/24 09:05> Inspection: No distended and Yes incision (dressings c/d/i) <INGE Borrero Last Filed: 02/29/24 09:05> Palpation (GI): Soft to palpation, Tenderness to palpation present (GI) (mild incisional) and no guarding <INGE Borrero Last Filed: 02/29/24 09:05> Percussion: Yes normal to percussion <INGE Borrero Last Filed: 02/29/24 09:05> Skin: General skin exam: no rashes or lesions noted <Tamiko Katz PA-C - Last Filed: 02/29/24 09:05> Neuro: General: patient oriented x3 and moves all extremities <Tamiko Katz PA-C - Last Filed: 02/29/24 09:05> Objective Data Active Medications Al Hydroxide/Mg Hydroxide (Magnesium Hydrox/Alum Hydrox 30 Ml Oral.Susp) 30 ml PO Q4H PRN PRN Reason: Heartburn/Nausea Albuterol Sulfate (Albuterol Sulfate 90 Mcg 8 Gm Inhaler) 2 puff INHALE RQ6H PRN PRN Reason: Wheezing Amlodipine Besylate (Amlodipine Besylate 5 Mg Tablet) 5 mg PO DAILY [facility]; Protocol Last Admin: 02/29/24 08:30 Dose: 5 mg Documented By: KEELEY Docusate Sodium (Docusate Sodium 100 Mg Capsule) 100 mg PO BID [facility] Last Admin: 02/29/24 08:30 Dose: 100 mg Documented By: KEELEY Glucose (Glucose Gel 15 Gm Gel..Gram.) 15 gm PO Q15M PRN; Protocol PRN Reason: per Hypoglycemia Standing Ord. Heparin Sodium (Porcine) (Heparin Sodium,Porcine 5,000 Unit/Ml Vial) 5,000 unit SUBCUT Q8H [facility] Sodium Chloride (Ns) 1,000 mls @ 100 mls/hr IVCONT .Q10H [facility] Last Admin: 02/29/24 04:23 Dose: 100 mls/hr Documented By: BRYANT Piperacillin Sod/Tazobactam (Sod 3.375 gm/ Sodium Chloride) 50 mls @ 100 mls/hr IV Q6H [facility] Last Infusion: 02/29/24 06:04 Dose: Infused Documented By: BRYANT Acetaminophen (Ofirmev) 1,000 mg in 100 mls @ 400 mls/hr IV Q6H [facility] Last Infusion: 02/29/24 04:34 Dose: Infused Documented By: BRYANT Dextrose (D10) 250 mls @ 750 mls/hr IV Q15M PRN; Protocol PRN Reason: per Hypoglycemia Standing Ord. Insulin Human Lispro (Insulin Lispro 100 Unit/Ml 3 Ml Vial) 0 unit SUBCUT QIDACHS [facility]; Protocol Last Admin: 02/29/24 08:31 Dose: 2 unit Documented By: KEELEY Levothyroxine Sodium (Levothyroxine Sodium 88 Mcg Tablet) 88 mcg PO DAILY@0600 [facility] Last Admin: 02/29/24 06:02 Dose: 88 mcg Documented By: BRYANT Mirabegron (Mirabegron 25 Mg Tab.Er.24h) 25 mg PO DAILY [facility] Last Admin: 02/29/24 08:30 Dose: 25 mg Documented By: KEELEY Montelukast Sodium (Montelukast Sodium 10 Mg Tablet) 10 mg PO BEDTIME [facility] Last Admin: 02/28/24 20:46 Dose: 10 mg Documented By: SUSANNA Morphine Sulfate (Morphine Sulfate 2 Mg/Ml Cartridge) 4 mg IVPUSH Q3H PRN; Protocol PRN Reason: Pain, Severe (Pain Scale 7-10) Last Admin: 02/28/24 20:58 Dose: 4 mg Documented By: SUSANNA Omeprazole (Omeprazole 20 Mg Capsule.Dr) 20 mg PO DAILY@0630 [facility] Last Admin: 02/29/24 06:02 Dose: 20 mg Documented By: BRYANT Ondansetron HCl (Ondansetron Hcl 4 Mg/2 Ml Vial) 4 mg IVPUSH Q8H PRN PRN Reason: Nausea Oxycodone HCl (Oxycodone Hcl Immed Release 5 Mg Tablet) 10 mg PO Q4H PRN PRN Reason: Pain, Moderate(Pain Scale 4-6) Sertraline HCl (Sertraline Hcl 100 Mg Tablet) 100 mg PO DAILY@0900 [facility] Last Admin: 02/29/24 08:30 Dose: 100 mg Documented By: KEELEY Sodium Chloride (0.9 % Sodium Chloride Flush 3 Ml Syringe) 3 ml IVFLUSH QSHIFT [facility] Last Admin: 02/29/24 08:30 Dose: 3 ml Documented By: KEELEY Trazodone HCl (Trazodone Hcl 100 Mg Tablet) 100 mg PO BEDTIME PRN PRN Reason: insomnia Last Admin: 02/28/24 20:58 Dose: 100 mg Documented By: SUSANNA <Tamiko Katz PA-C - Last Filed: 02/29/24 09:05> Labs CBC & Chem 7: 02/27/24 15:36 02/27/24 15:36 <Tamiko Katz PA-C - Last Filed: 02/29/24 09:05> Labs: Laboratory Results - last 24 hr 02/28/24 02/28/24 02/28/24 12:25 16:45 20:30 POC Glucose 144 H 161 H 278 H 02/29/24 07:12 POC Glucose 196 H <Tamiko Katz PA-C - Last Filed: 02/29/24 09:05> Microbiology Microbiology Results: Microbiology 02/28/24 01:05 Blood Culture - Preliminary Blood - Venous No growth after 24 hours. 02/27/24 22:37 Blood Culture - Preliminary Blood - Venous No growth after 24 hours. 02/27/24 18:33 Urine Culture - Preliminary Urine clean catch - Urine martínez top Strep agalactiae (Grp B) <Tamiko Katz PA-C - Last Filed: 02/29/24 09:05> Procedures Date of Service Date of Service: 02/29/24 <Tamiko Katz PA-C - Last Filed: 02/29/24 09:05> 02/29/24 <Joni Hatfield MD - Last Filed: 02/29/24 09:23> Progress Note: A&P Assessment and plan (1) Acute appendicitis: Status: Acute <Tamiko Katz PA-C - Last Filed: 02/29/24 09:05> Assessment and Plan: S/P open appendectomy via midline says she has adequate pain control passing flatus looks well ANKIT - serosanguinous advance diet OOB incentive spirometry seen and examined independently <Joni Hatfield MD - Last Filed: 02/29/24 09:23> (2) S/P appendectomy: Status: Acute <Tamiko Katz PA-C - Last Filed: 02/29/24 09:05> Assessment and Plan: POD #1 s/p attempted laparoscopic appendectomy, converted to open appendectomy via midline incision for perforated, with severe inflammatory changes, extraluminal appendicoliths. Doing fairly well post op, good pain control. Tolerating liquids without nausea or vomiting. Hemodynamically stable. Abd benign with appropriate post op tenderness, dressings c/d/i, ANKIT drain serosanguineous output. Cont IV zosyn. Will advance to solid diet. Increase activity- encouraged OOB/ambulation and IS use today. Keep ANKIT drain in place. Castro christiansen. <Tamiko Katz PA-C - Last Filed: 02/29/24 09:05> Time Spent With Patient Time: Total time managing care of this patient today ____ minutes. <Tamiko Katz PA-C - Last Filed: 02/29/24 09:05> Quality Stroke Does the patient have a stroke diagnosis?: No <Tamiko Katz PA-C - Last Filed: 02/29/24 09:05> VTE Prior VTE?: No <Tamiko Katz PA-C - Last Filed: 02/29/24 09:05> VTE Risk Level:: Surgical - low <Tamiko Katz PA-C - Last Filed: 02/29/24 09:05> VTE Device Contraindication: Treatment Not Indicated <Tamiko Katz PA-C - Last Filed: 02/29/24 09:05> VTE Drug Contraindication: Treatment Not Indicated <Tamiko Katz PA-C - Last Filed: 02/29/24 09:05>
[2024-02-29 11:16] LABS: Glucose, Whole Blood 212 mg/dL (60-115)
--- NOTE | 2024-02-29 12:03 | PC.NURSE ---
Addendum entered by Tova Burgos RN 02/29/24 12:55: Per PA pt transition back to clear liquid diet, pt aware. Addendum entered by Tova Burgos RN 02/29/24 12:30: Pt took a couple bites of lunch and became nauseated and vomited. PRN zofran given as ordered, ELIAS Katz made aware. Original Note: Pt able to ambulate to bathroom with stand by assistance and void. Pt using incentive spirometer as ordered, SCDs in place. Pt able to sit up in chair, reporting mild abd pain relived with scheduled Tylenol.
[2024-02-29] MEDS: ondansetron HCL 4 MG/2 ML VIAL IVPUSH (12:20)
[2024-02-29] MEDS: Heparin Sodium,Porcine 5,000 UNIT/ML VIAL 5000 UNIT SUBCUT ×2 (15:02→20:53)
[2024-02-29 15:23] VITALS: BP 115/61; PULSE 84; RESP 18; TEMP 36.1; O2SAT 93
[2024-02-29 16:20] LABS: Glucose, Whole Blood 133 mg/dL (60-115)
[2024-02-29] MEDS: Morphine Sulfate 2 MG/ML CARTRIDGE 4 MG IVPUSH (16:23)
[2024-02-29] MEDS: Montelukast Sodium 10 MG TABLET PO (19:43)
[2024-02-29 19:48] VITALS: BP 104/54; PULSE 85; RESP 18; TEMP 36.1; O2SAT 94
[2024-02-29 20:25] LABS: Glucose, Whole Blood 227 mg/dL (60-115)
[2024-03-01] MEDS: Acetaminophen 1,000 MG/100 ML PIGGYBACK 400 MG IV ×4 (00:15→22:03)
[2024-03-01 04:00] VITALS: BP 119/58; PULSE 82; RESP 16; TEMP 36; O2SAT 94
[2024-03-01] MEDS: Omeprazole 20 MG CAPSULE.DR PO (04:57)
[2024-03-01] MEDS: Levothyroxine Sodium 88 MCG TABLET PO (04:57)
[2024-03-01] MEDS: oxyCODONE HCl Immed Release 5 MG TABLET 10 MG PO (04:59)
[2024-03-01] MEDS: Piperacillin Sodium/Tazobactam 3.375 GM in 0.9 % Sodium Chloride 50 ML IV ×4 (05:03→23:52)
[2024-03-01] MEDS: Heparin Sodium,Porcine 5,000 UNIT/ML VIAL 5000 UNIT SUBCUT ×3 (05:37→21:59)
[2024-03-01 07:04] VITALS: BP 113/56; PULSE 86; RESP 16; TEMP 36.4; O2SAT 94
[2024-03-01 07:27] LABS: Glucose, Whole Blood 104 mg/dL (60-115)
--- NOTE | 2024-03-01 08:12 | PM.PNGS ---
Subjective Subjective Date of Service: 03/01/24 <Tamiko Katz PA-C - Last Filed: 03/01/24 08:16> 03/01/24 <Joni Hatfield MD - Last Filed: 03/01/24 09:32> Interval history: Vomited yesterday. Feels improved this morning. OOB to recliner all day yesterday, ambulated halls. Nausea resolved, passing flatus. Feels hungry. <Tamiko Katz PA-C - Last Filed: 03/01/24 08:16> Physical Exam Vital Signs: Vital Signs: Last Vital Signs Temp 97.5 F 03/01/24 07:04 Pulse 86 03/01/24 07:04 Resp 16 03/01/24 07:04 BP 113/56 L 03/01/24 07:04 Pulse Ox 94 03/01/24 07:04 O2 Del Method Room Air 03/01/24 07:04 O2 Flow Rate 2 02/29/24 08:00 BMI result Body Mass Index 25.9 <INGE Borrero Last Filed: 03/01/24 08:16> Const: General: comfortable, no acute distress and alert <INGE Borrero Last Filed: 03/01/24 08:16> Orientation/consciousness: patient oriented x3 <INGE Borrero Last Filed: 03/01/24 08:16> Resp: Effort & Inspection: normal respiratory effort <INGE Borrero Last Filed: 03/01/24 08:16> GI: Other: ANKIT drain serosang <Tamiko Katz PA-C - Last Filed: 03/01/24 08:16> Inspection: No distended and Yes incision (clean, jesus intact, wound laura removed ) <INGE Borrero Last Filed: 03/01/24 08:16> Palpation (GI): Soft to palpation, Tenderness to palpation present (GI) (mild incisional) and no guarding <INGE Borrero Last Filed: 03/01/24 08:16> Skin: General skin exam: no rashes or lesions noted <Tamiko Katz PA-C - Last Filed: 03/01/24 08:16> Neuro: General: patient oriented x3 <Tamiko Katz PA-C - Last Filed: 03/01/24 08:16> Objective Data Active Medications Al Hydroxide/Mg Hydroxide (Magnesium Hydrox/Alum Hydrox 30 Ml Oral.Susp) 30 ml PO Q4H PRN PRN Reason: Heartburn/Nausea Albuterol Sulfate (Albuterol Sulfate 90 Mcg 8 Gm Inhaler) 2 puff INHALE RQ6H PRN PRN Reason: Wheezing Amlodipine Besylate (Amlodipine Besylate 5 Mg Tablet) 5 mg PO DAILY [facility]; Protocol Last Admin: 02/29/24 08:30 Dose: 5 mg Documented By: KEELEY Docusate Sodium (Docusate Sodium 100 Mg Capsule) 100 mg PO BID [facility] Last Admin: 02/29/24 19:43 Dose: 100 mg Documented By: ANTOIC Glucose (Glucose Gel 15 Gm Gel..Gram.) 15 gm PO Q15M PRN; Protocol PRN Reason: per Hypoglycemia Standing Ord. Heparin Sodium (Porcine) (Heparin Sodium,Porcine 5,000 Unit/Ml Vial) 5,000 unit SUBCUT Q8H [facility] Last Admin: 03/01/24 05:37 Dose: 5,000 unit Documented By: EARLINE Piperacillin Sod/Tazobactam (Sod 3.375 gm/ Sodium Chloride) 50 mls @ 100 mls/hr IV Q6H [facility] Last Infusion: 03/01/24 05:38 Dose: Infused Documented By: ANTBLACK Acetaminophen (Ofirmev) 1,000 mg in 100 mls @ 400 mls/hr IV Q6H [facility] Last Admin: 03/01/24 03:46 Dose: Not Given Documented By: ANTOIC Non-Admin Reason: Patient Refused Dextrose (D10) 250 mls @ 750 mls/hr IV Q15M PRN; Protocol PRN Reason: per Hypoglycemia Standing Ord. Insulin Human Lispro (Insulin Lispro 100 Unit/Ml 3 Ml Vial) 0 unit SUBCUT QIDACHS [facility]; Protocol Last Admin: 03/01/24 07:32 Dose: Not Given Documented By: DEENA Non-Admin Reason: No Insulin Coverage Levothyroxine Sodium (Levothyroxine Sodium 88 Mcg Tablet) 88 mcg PO DAILY@0600 [facility] Last Admin: 03/01/24 04:57 Dose: 88 mcg Documented By: ANTBLACK Mirabegron (Mirabegron 25 Mg Tab.Er.24h) 25 mg PO DAILY [facility] Last Admin: 02/29/24 08:30 Dose: 25 mg Documented By: KEELEY Montelukast Sodium (Montelukast Sodium 10 Mg Tablet) 10 mg PO BEDTIME [facility] Last Admin: 02/29/24 19:43 Dose: 10 mg Documented By: ANTOIC Morphine Sulfate (Morphine Sulfate 2 Mg/Ml Cartridge) 4 mg IVPUSH Q3H PRN; Protocol PRN Reason: Pain, Severe (Pain Scale 7-10) Last Admin: 02/29/24 16:23 Dose: 4 mg Documented By: KEELEY Omeprazole (Omeprazole 20 Mg Capsule.Dr) 20 mg PO DAILY@0630 [facility] Last Admin: 03/01/24 04:57 Dose: 20 mg Documented By: EARLINE Ondansetron HCl (Ondansetron Hcl 4 Mg/2 Ml Vial) 4 mg IVPUSH Q8H PRN PRN Reason: Nausea Last Admin: 02/29/24 12:20 Dose: 4 mg Documented By: KEELEY Oxycodone HCl (Oxycodone Hcl Immed Release 5 Mg Tablet) 10 mg PO Q4H PRN PRN Reason: Pain, Moderate(Pain Scale 4-6) Last Admin: 03/01/24 04:59 Dose: 10 mg Documented By: EARLINE Sertraline HCl (Sertraline Hcl 100 Mg Tablet) 100 mg PO DAILY@0900 [facility] Last Admin: 02/29/24 08:30 Dose: 100 mg Documented By: KEELEY Sodium Chloride (0.9 % Sodium Chloride Flush 3 Ml Syringe) [facility] Last Admin: 02/29/24 19:45 Dose: 3 ml Documented By: ANTOIC Trazodone HCl (Trazodone Hcl 100 Mg Tablet) 100 mg PO BEDTIME PRN PRN Reason: insomnia Last Admin: 02/28/24 20:58 Dose: 100 mg Documented By: SUSANNA <Tamiko Katz PA-C - Last Filed: 03/01/24 08:16> Labs CBC & Chem 7: 05/12/24 15:36 02/27/24 15:36 <Tamiko Katz PA-C - Last Filed: 03/01/24 08:16> Labs: Laboratory Results - last 24 hr 02/29/24 02/29/24 02/29/24 11:12 16:04 19:53 POC Glucose 212 H 133 H 227 H 03/01/24 07:06 POC Glucose 104 <Tamiko Katz PA-C - Last Filed: 03/01/24 08:16> Microbiology Microbiology Results: Microbiology 02/28/24 01:05 Blood Culture - Preliminary Blood - Venous No growth after 48 hours. 02/27/24 22:37 Blood Culture - Preliminary Blood - Venous No growth after 48 hours. 02/27/24 18:33 Urine Culture - Final Urine clean catch - Urine martínez top Strep agalactiae (Grp B) <Tamiko Katz PA-C - Last Filed: 03/01/24 08:16> Procedures Date of Service Date of Service: 03/01/24 <Tamiko Katz PA-C - Last Filed: 03/01/24 08:16> 03/01/24 <Joni Hatfield MD - Last Filed: 03/01/24 09:32> Progress Note: A&P Assessment and plan (1) S/P appendectomy: Status: Acute <Tamiko Katz PA-C - Last Filed: 03/01/24 08:16> Assessment and Plan: Reported to have vomited yesterday Feels well this morning Passing flatus Abdomen soft Incision clean and dry ANKIT drain scanty serosanguineous Restart diet Ambulate IV antibiotics Looks well overall Seen and examined independent <Joni Hatfield MD - Last Filed: 03/01/24 09:32> (2) Acute appendicitis: Status: Acute <Tamiko Katz PA-C - Last Filed: 03/01/24 08:16> Assessment and Plan: POD #2 s/p attempted laparoscopic appendectomy, converted to open appendectomy via midline incision for perforated, with severe inflammatory changes, extraluminal appendicoliths. Improved this morning. Abd benign with appropriate post op tenderness, incisiosn clean, ANKIT drain serosanguineous output. Cont IV zosyn. Will advance back to solid diet. Cont ambulation, IS use. Keep ANKIT drain in place but will likely remove prior to dc. Home when tolerating solid diet pain controlled on oral analgesics. <Tamiko Katz PA-C - Last Filed: 03/01/24 08:16> Time Spent With Patient Time: Total time managing care of this patient today ____ minutes. <Tamiko Katz PA-C - Last Filed: 03/01/24 08:16> Quality Stroke Does the patient have a stroke diagnosis?: No <INGE Borrero Last Filed: 03/01/24 08:16> VTE Prior VTE?: No <Tamiko Katz PA-C - Last Filed: 03/01/24 08:16> VTE Risk Level:: Surgical - low <INGE Borrero Last Filed: 03/01/24 08:16> VTE Device Contraindication: Treatment Not Indicated <Tamiko Katz PA-C - Last Filed: 03/01/24 08:16> VTE Drug Contraindication: Treatment Not Indicated <INGE Borrero Last Filed: 03/01/24 08:16>
[2024-03-01 08:19] VITALS: BP 113/56
[2024-03-01] MEDS: Docusate Sodium 100 MG CAPSULE PO ×2 (08:19→20:57)
[2024-03-01] MEDS: amLODIPine Besylate 5 MG TABLET PO (08:19)
[2024-03-01] MEDS: Mirabegron 25 MG TAB.ER.24H PO (08:19)
[2024-03-01] MEDS: Sertraline HCL 100 MG TABLET PO (08:19)
[2024-03-01] MEDS: 0.9 % Sodium Chloride Flush 3 ML SYRINGE IVFLUSH ×3 (08:21→23:54)
--- NOTE | 2024-03-01 10:21 | MHC.CM.PN ---
EMR reviewed. Patient not medically cleared for dc. ANKIT drain in place, likley will be removed prior to dc. CM will continue to follow.
[2024-03-01 11:21] LABS: Glucose, Whole Blood 134 mg/dL (60-115)
[2024-03-01 15:23] VITALS: BP 117/58; PULSE 88; RESP 18; TEMP 36.1; O2SAT 94
[2024-03-01 15:49] LABS: Glucose, Whole Blood 140 mg/dL (60-115)
[2024-03-01 19:20] VITALS: BP 119/58; PULSE 87; RESP 18; TEMP 36.1; O2SAT 94
[2024-03-01 19:54] LABS: Glucose, Whole Blood 215 mg/dL (60-115)
[2024-03-01] MEDS: Insulin Lispro 100 UNIT/ML 3 ML VIAL SUBCUT (20:57)
[2024-03-01] MEDS: Montelukast Sodium 10 MG TABLET PO (20:57)
[2024-03-02 00:26] VITALS: BP 132/60; PULSE 82; RESP 18; TEMP 36.6; O2SAT 95
[2024-03-02] MEDS: Acetaminophen 1,000 MG/100 ML PIGGYBACK 400 MG IV ×2 (04:49→11:59)
[2024-03-02] MEDS: Piperacillin Sodium/Tazobactam 3.375 GM in 0.9 % Sodium Chloride 50 ML IV ×2 (05:07→13:12)
[2024-03-02] MEDS: Levothyroxine Sodium 88 MCG TABLET PO (05:10)
[2024-03-02] MEDS: Omeprazole 20 MG CAPSULE.DR PO (05:11)
[2024-03-02] MEDS: Heparin Sodium,Porcine 5,000 UNIT/ML VIAL 5000 UNIT SUBCUT (05:11)
[2024-03-02] MEDS: oxyCODONE HCl Immed Release 5 MG TABLET 10 MG PO (05:12)
[2024-03-02 07:39] VITALS: BP 135/63; PULSE 82; RESP 14; TEMP 36.3; O2SAT 93
[2024-03-02 07:41] VITALS: TEMP 36.3
[2024-03-02 07:42] LABS: Glucose, Whole Blood 117 mg/dL (60-115)
--- NOTE | 2024-03-02 07:51 | P.PNGS_ITS ---
Subjective Subjective Date of Service: 03/02/24 <Tamiko Katz PA-C - Last Filed: 03/02/24 07:54> 03/02/24 <Joni Hatfield MD - Last Filed: 03/02/24 08:10> Interval history: Feels well this morning. Tolerating solid diet without nausea or vomiting. Pain well controlled, has been using oral and IV analgesics. Passing flatus and had BM. <Tamiko Katz PA-C - Last Filed: 03/02/24 07:54> Physical Exam 2 Vital Signs: Vital Signs: Last Vital Signs Temp 97.3 F 03/02/24 07:41 Pulse 82 03/02/24 07:39 Resp 14 03/02/24 07:39 BP 135/63 03/02/24 07:39 Pulse Ox 93 03/02/24 07:39 O2 Del Method Room Air 03/02/24 07:39 O2 Flow Rate 2 02/29/24 08:00 BMI result Body Mass Index 25.9 <Tamiko Katz PA-C - Last Filed: 03/02/24 07:54> Const: General: comfortable, no acute distress and alert <Tamiko Katz PA-C - Last Filed: 03/02/24 07:54> Orientation/consciousness: patient oriented x3 <INGE Borrero Last Filed: 03/02/24 07:54> Resp: Effort & Inspection: normal respiratory effort <INGE Borrero Last Filed: 03/02/24 07:54> GI: Other: ANKIT drain scant serosanguineous <INGE Borrero Last Filed: 03/02/24 07:54> Inspection: Yes distended (mild) and Yes incision (clean) <INGE Borrero Last Filed: 03/02/24 07:54> Palpation (GI): Soft to palpation, Tenderness to palpation present (GI) (mild incisional) and no guarding <INGE Borrero Last Filed: 03/02/24 07:54> Skin: General skin exam: no rashes or lesions noted <INGE Borrero Last Filed: 03/02/24 07:54> Neuro: General: patient oriented x3 <Tamiko Katz PA-C - Last Filed: 03/02/24 07:54> Objective Data Active Medications Al Hydroxide/Mg Hydroxide (Magnesium Hydrox/Alum Hydrox 30 Ml Oral.Susp) 30 ml PO Q4H PRN PRN Reason: Heartburn/Nausea Albuterol Sulfate (Albuterol Sulfate 90 Mcg 8 Gm Inhaler) 2 puff INHALE RQ6H PRN PRN Reason: Wheezing Amlodipine Besylate (Amlodipine Besylate 5 Mg Tablet) 5 mg PO DAILY [facility]; Protocol Last Admin: 03/01/24 08:19 Dose: 5 mg Documented By: DEENA Docusate Sodium (Docusate Sodium 100 Mg Capsule) 100 mg PO BID [facility] Last Admin: 03/01/24 20:57 Dose: 100 mg Documented By: DEENA Glucose (Glucose Gel 15 Gm Gel..Gram.) 15 gm PO Q15M PRN; Protocol PRN Reason: per Hypoglycemia Standing Ord. Heparin Sodium (Porcine) (Heparin Sodium,Porcine 5,000 Unit/Ml Vial) 5,000 unit SUBCUT Q8H [facility] Last Admin: 03/02/24 05:11 Dose: 5,000 unit Documented By: EARLINE Piperacillin Sod/Tazobactam (Sod 3.375 gm/ Sodium Chloride) 50 mls @ 100 mls/hr IV Q6H [facility] Last Infusion: 03/02/24 05:37 Dose: Infused Documented By: EARLINE Acetaminophen (Ofirmev) 1,000 mg in 100 mls @ 400 mls/hr IV Q6H [facility] Last Infusion: 03/02/24 05:08 Dose: Infused Documented By: EARLINE Dextrose (D10) 250 mls @ 750 mls/hr IV Q15M PRN; Protocol PRN Reason: per Hypoglycemia Standing Ord. Insulin Human Lispro (Insulin Lispro 100 Unit/Ml 3 Ml Vial) 0 unit SUBCUT QIDACHS [facility]; Protocol Last Admin: 03/01/24 20:57 Dose: 4 unit Documented By: DEENA Levothyroxine Sodium (Levothyroxine Sodium 88 Mcg Tablet) 88 mcg PO DAILY@0600 [facility] Last Admin: 03/02/24 05:10 Dose: 88 mcg Documented By: EARLINE Mirabegron (Mirabegron 25 Mg Tab.Er.24h) 25 mg PO DAILY [facility] Last Admin: 03/01/24 08:19 Dose: 25 mg Documented By: DEENA Montelukast Sodium (Montelukast Sodium 10 Mg Tablet) 10 mg PO BEDTIME [facility] Last Admin: 03/01/24 20:57 Dose: 10 mg Documented By: DEENA Morphine Sulfate (Morphine Sulfate 2 Mg/Ml Cartridge) 4 mg IVPUSH Q3H PRN; Protocol PRN Reason: Pain, Severe (Pain Scale 7-10) Last Admin: 02/29/24 16:23 Dose: 4 mg Documented By: KEELEY Omeprazole (Omeprazole 20 Mg Capsule.Dr) 20 mg PO DAILY@0630 [facility] Last Admin: 03/02/24 05:11 Dose: 20 mg Documented By: EARLINE Ondansetron HCl (Ondansetron Hcl 4 Mg/2 Ml Vial) 4 mg IVPUSH Q8H PRN PRN Reason: Nausea Last Admin: 02/29/24 12:20 Dose: 4 mg Documented By: KEELEY Oxycodone HCl (Oxycodone Hcl Immed Release 5 Mg Tablet) 10 mg PO Q4H PRN PRN Reason: Pain, Moderate(Pain Scale 4-6) Last Admin: 03/02/24 05:12 Dose: 10 mg Documented By: EARLINE Sertraline HCl (Sertraline Hcl 100 Mg Tablet) 100 mg PO DAILY@0900 [facility] Last Admin: 03/01/24 08:19 Dose: 100 mg Documented By: DEENA Sodium Chloride (0.9 % Sodium Chloride Flush 3 Ml Syringe) 3 ml IVFLUSH QSHIFT [facility] Last Admin: 03/01/24 23:54 Dose: 3 ml Documented By: EARLINE Trazodone HCl (Trazodone Hcl 100 Mg Tablet) 100 mg PO BEDTIME PRN PRN Reason: insomnia Last Admin: 02/28/24 20:58 Dose: 100 mg Documented By: SUSANNA <Tamiko Katz PA-C - Last Filed: 03/02/24 07:54> Labs CBC & Chem 7: 02/27/24 15:36 02/27/24 15:36 <Tamiko Katz PA-C - Last Filed: 03/02/24 07:54> Labs: Laboratory Results - last 24 hr 03/01/24 03/01/24 03/01/24 11:08 15:28 19:20 POC Glucose 134 H 140 H 215 H 03/02/24 07:39 POC Glucose 117 H <Tamiko Katz PA-C - Last Filed: 03/02/24 07:54> Procedures Date of Service Date of Service: 03/02/24 <Tamiko Katz PA-C - Last Filed: 03/02/24 07:54> 03/02/24 <Joni Hatfield MD - Last Filed: 03/02/24 08:10> Progress Note: A&P Assessment and plan (1) S/P appendectomy: Status: Acute <Tamiko Katz PA-C - Last Filed: 03/02/24 07:54> Assessment and Plan: Feels well Tolerating diet Passing flatus and BMs Pain well controlled She says she is ready to be discharged DC home today with pain medications, antibiotic ANKIT drain to stay and I planned to remove this next week Nurse instructed to educate patient on drain care Seen and examined independently <Joni Hatfield MD - Last Filed: 03/02/24 08:10> (2) Acute appendicitis: Status: Acute <Tamiko Katz PA-C - Last Filed: 03/02/24 07:54> Assessment and Plan: POD #3 s/p attempted laparoscopic appendectomy, converted to open appendectomy via midline incision for perforated, with severe inflammatory changes, extraluminal appendicoliths. Doing well post op, tolerating solid diet. VSS. Abd exam benign with appropriate post op tenderness, incision clean, ANKIT drain scanty serosanguineous. Will reassess for possible dc to home later today if comfortable on PO analgesics. WIll keep ANKIT in place. F/u in office in 1 week. <INGE Borrero Last Filed: 03/02/24 07:54> Time Spent With Patient Time: Total time managing care of this patient today ____ minutes. <Tamiko Katz PA-C - Last Filed: 03/02/24 07:54> Quality Stroke Does the patient have a stroke diagnosis?: No <Tamiko Katz PA-C - Last Filed: 03/02/24 07:54> VTE Prior VTE?: No <Tamiko Katz PA-C - Last Filed: 03/02/24 07:54> VTE Risk Level:: Surgical - low <Tamiko Katz PA-C - Last Filed: 03/02/24 07:54> VTE Device Contraindication: Treatment Not Indicated <Tamiko Katz PA-C - Last Filed: 03/02/24 07:54> VTE Drug Contraindication: Treatment Not Indicated <Tamiko Katz PA-C - Last Filed: 03/02/24 07:54>
[2024-03-02] MEDS: 0.9 % Sodium Chloride Flush 3 ML SYRINGE IVFLUSH (10:17)
[2024-03-02 10:18] VITALS: BP 135/63
[2024-03-02] MEDS: amLODIPine Besylate 5 MG TABLET PO (10:18)
[2024-03-02] MEDS: Sertraline HCL 100 MG TABLET PO (10:18)
[2024-03-02] MEDS: Docusate Sodium 100 MG CAPSULE PO (10:18)
[2024-03-02] MEDS: Mirabegron 25 MG TAB.ER.24H PO (10:18)
[2024-03-02 11:40] LABS: Glucose, Whole Blood 253 mg/dL (60-115)
[2024-03-02] MEDS: Insulin Lispro 100 UNIT/ML 3 ML VIAL SUBCUT (12:00)
--- NOTE | 2024-03-02 13:15 | PM.EVENT ---
Event Note Date of Service: 03/02/24 Event Note: Continues to feel well Tolerating diet Good GI function Abdomen remained soft and benign Clinically looks well We will DC home Time Spent With Patient Time: Total time managing care of this patient today ____ minutes.
--- NOTE | 2024-03-02 13:37 | MHC.CM.PN ---
Addendum entered by Khadra Garrett RN 03/02/24 13:40: Discussed w/ patient via interpreter for the deaf. Original Note: EMR reviewed. Patient medically cleared for dc home self care. Patient & will receive teaching for ANKIT drain from RN. Patient feels confident she can manage independently. is at bedside to transport. RN aware.
--- NOTE | 2024-03-02 14:47 | P.DS_ITS ---
DS: Providers Provider Date of Service: 03/02/24 Date of admission: 02/27/24 22:43 Date of discharge: 03/02/24 Primary care physician: Roel Rock MD Attending physician on admission: Joni Hatfield Consults: 02/28/24 16:14 Consult to Hospitalist Routine Comment: Consulting Provider: Hospitalist Reason For Exam: s/p open appendectomy, diabetes mellitus, HTN Attending physician on discharge: Joni Hatfield DS: Diagnosis Discharge Diagnosis (1) S/P appendectomy: Status: Acute (2) Acute appendicitis: Status: Acute DS: Summary Hospital Course Hospital Course: HPI AT ADMISSION: Lolly Hinds is a 58 year old female with diabetes and hypertension, in the ER because of the abdominal pain. She describes right lower quadrant pain for the past 4 days now. She says that this is now more constant. She describes having nausea and vomiting at home as well on and off. She denies any fever. She also says that she has had some loose stools. She has a history of cholecystectomy. She also has what appears to be a Pfannenstiel incision on the lower abdomen. CAT scan shows significant appendiceal inflammatory changes and appendicoliths consistent with acute appendicitis. HOSPITAL COURSE: She was admitted to the surgical service for further treatment of the acute appendicitis. It was recommended to proceed with the appendectomy. She agreed and was added onto the OR schedule for that day. She was kept NPO, on IVF and IV zosyn. On 02/28/24, attempted laparoscopic appendectomy, converted to open appendectomy via midline incision. The appendix was found to be perforated, with severe inflammatory changes, extraluminal appendicoliths. ANKIT drain was placed in traoperatively. She tolerated the procedure well. Hospitalist consult was obtained for management of her medical comorbidities. She had an uncomplicated recovery course. She was kept inpatient until POD #3 for IV abx and until she was tolerating a solid diet without nausea/vomiting and her pain was controlled on oral analgesics. Her ANKIT had scant serous output but was kept in place. Her WBC normalized. Her abdomen was benign with clean incisions and ANKIT drain with serous output. She felt ready for discharge. She was educated on ANKIT drain care. She was discharged to home on 03/02/24 in stable con dition. She is to follow up in the office in 1 week. She was discharged on a PO course of Augmentin. Status at Discharge Functional status at discharge: independent ambulation Overall status at discharge: patient is progressing back to baseline Time Attestation Discharge Coordination Time (in mins): 35 Quality: Safe Use of Opioids Does Pt have an Active Cancer Diagnosis on the Problem List?: No Quality: Stroke Does the patient have a stroke diagnosis?: No Physical Exam Vital Signs: Vital Signs: Last Vital Signs Temp 97.3 F 03/02/24 07:41 Pulse 82 03/02/24 07:39 Resp 14 03/02/24 07:39 BP 135/63 03/02/24 10:18 Pulse Ox 93 03/02/24 07:39 O2 Del Method Room Air 03/02/24 07:39 O2 Flow Rate 2 02/29/24 08:00 BMI result Body Mass Index 25.9 Const: General: comfortable, no acute distress and alert Orientation/consciousness: patient oriented x3 Resp: Effort & Inspection: normal respiratory effort GI: Other: ANKIT drain- scant serous drainage Inspection: No distended and Yes incision (clean, jesus intact ) Palpation (GI): Soft to palpation, Tenderness to palpation present (GI) (mild incisional) and no guarding Percussion: Yes normal to percussion Skin: General skin exam: no rashes or lesions noted Neuro: General: patient oriented x3 DS: Data Data Completed and Pending Completed studies during hospitalization [Text1]: 02/28/24 14:19 Surgical [PTH] Routine A. Vermiform appendix, appendectomy: Gangrenous and suppurative appendicitis and periappendicitis with perforation. B. Soft tissue, base of appendix, excision: Gangrenous and suppurative appendicitis and periappendicitis. C. Soft tissue, umair appendiceal tissue, excision: Fibrovascular and adipose tissue with acute inflammation and necrosis. Discharge Plan Discharge Anticipated Discharge Date/Time: 03/02/24 11:54 Patient Disposition: Home, Self-Care Discharge Diagnosis: perforated appendicitis, s/p appendectomy Referrals: Joni Hatfield MD [Physician] - 1 Week Name,MD Roel [Primary Care Provider] - 1 Week Discharge Medications: New docusate sodium [Colace] 100 mg capsule 100 mg PO BID PRN (Reason: constipation) Qty: 30 0RF amoxicillin-pot clavulanate 875-125 mg tablet 1 tab PO BID Qty: 14 0RF oxycodone 5 mg tablet 5 mg PO Q4H PRN (Reason: pain (scale score 7-10)) Qty: 24 0RF Rx Instructions: Partial Fill upon patient request. Continued levothyroxine 88 mcg tablet 88 mcg PO DAILY 90 Days Qty: 90 1RF Rx Instructions: Dose increased insulin aspart U-100 100 unit/mL (3 mL) insulin pen See Rx Instructions subcut TID 30 Days Qty: 15 6RF Rx Instructions: 4 units small meals, 8 medium meals and 10 units large meals, + 2 units for bg over 200 subcut 3 times a day; subcut 3 times a day; (DME) FreeStyle Rama 2 Sensor Kit See Rx Instructions .ROUTE .MEDSUPPLY Qty: 2 11RF Rx Instructions: As directed change every 2 weeks (DME) pen needle, diabetic [BD Ultra-Fine Sandy Pen Needle] 32 gauge x 5/32 needle See Rx Instructions .ROUTE .COMPLEX Qty: 100 6RF Dose Instruction: USE DIRECTED FOUR TIMES DAILY Rx Instructions: USE DIRECTED FOUR TIMES DAILY pravastatin 20 mg tablet 20 mg PO BEDTIME Qty: 30 6RF (DME) FreeStyle Lite Strips Strip See Rx Instructions .ROUTE .COMPLEX Qty: 100 11RF Dose Instruction: TEST BLOOD SUGAR FOUR TIMES DAILY Rx Instructions: TEST BLOOD SUGAR FOUR TIMES DAILY gabapentin 300 mg capsule 300 mg PO BEDTIME Qty: 30 11RF insulin glargine U-300 conc [Toujeo Max U-300 SoloStar] 300 unit/mL (3 mL) insulin pen 36 unit subcut BEDTIME Qty: 6 3RF Trulicity 0.75 mg/0.5 mL pen injector 1.5 mg subcut QWEEK omeprazole 20 mg capsule,delayed release(DR/EC) 20 mg PO DAILY pioglitazone 30 mg tablet 30 mg PO DAILY cholecalciferol (vitamin D3) [Vitamin D3] 25 mcg (1,000 unit) capsule 50 mcg PO DAILY Jardiance 25 mg tablet 25 mg PO DAILY aspirin [Adult Low Dose Aspirin] 81 mg tablet,delayed release (DR/EC) 81 mg PO DAILY metformin 500 mg tablet See Rx Instructions PO DAILY Rx Instructions: 1/2 tablet PO daily; hydrochlorothiazide 12.5 mg tablet 12.5 mg PO DAILY (DME) FreeStyle Rama 2 [place] Misc See Rx Instructions .ROUTE .MEDSUPPLY Qty: 1 0RF Rx Instructions: As directed hydroxychloroquine 200 mg tablet 200 mg PO BID Myrbetriq 25 mg tablet extended release 24 hr 25 mg PO DAILY trazodone 100 mg tablet 100 mg PO BEDTIME PRN (Reason: insomnia) sertraline 100 mg tablet 100 mg PO QAM ibuprofen 800 mg tablet 800 mg PO TID PRN (Reason: pain) montelukast 10 mg tablet 10 mg PO BEDTIME dicyclomine 20 mg tablet 20 mg PO .TIDAC 30 Days Qty: 90 6RF sennosides [senna] 8.6 mg tablet 17.2 mg PO BEDTIME Qty: 60 4RF amlodipine 5 mg tablet 5 mg PO DAILY enalapril maleate 20 mg tablet 20 mg PO BEDTIME acetaminophen 500 mg tablet 500 mg PO Q6H PRN (Reason: pain) No Action ondansetron 4 mg tablet,disintegrating 4 mg PO Q6-8H PRN (Reason: nausea and vomiting) Qty: 7 0RF Discharge Orders: Discharge Order (Routine); Ordered 03/02/24 Ordered By: Joni Hatfield Diet: Diabetic diet Activity on Discharge: No heavy lifting Stand Alone Forms: Patient Portal Discharge page Print Language: Lebanese Activity Restrictions/Additional Instructions: If the incision area is tender, you may apply an ice pack for short intervals (No more than 20 minutes on, followed by at least 20 minutes off). Do not apply heat. Do not use creams, lotions, or topical antibiotics. These can cause infection or allergic reaction. Ok to shower. You have jesus closing your incision and these will be removed approximately 10-14 days after surgery. ANKIT drain care: empty BID and as needed. NO HEAVY LIFTING (>10lbs) or strenuous activity. Follow up in office. ([phone]) Call Your Doctor If: -Your temperature exceeds 101.5? F -You experience excessive pain or swelling -You have an unexpected reaction to medication -You have excessive bleeding -You experience continued vomiting/nausea -Your incision begins to separate -Your incision shows signs of infection such as increased redness, swelling, excessive pain, drainage (light blood or clear fluid is normal) or heat Care Plan Goals: Return to baseline health and resume normal activities following recovery period. Health Concerns: acute perforated appendicitis diabetes mellitus HTN Plan of Treatment: s/p open appendectomy IV converted to PO abx Home with VNA for ANKIT drain care Assessment: Doing well post op. Discharge Date/Time: 03/02/24 14:15
== END 2024-03-02 14:15 | disposition home or self-care (01) | DRG 233 ==
LOC: HO.ED 22:26 → HO.EDOVER 22:50 → HO.S3 02-28 11:21
PROVIDERS: Physician Assistant Medical; Surgery; Admitting Provider Surgery; Emergency Provider Emergency Medicine; PCP Internal Medicine Geriatric Medicine; Visit Provider Surgery
PROC: 0DTJ4ZZ Resection of Appendix, Percutaneous Endoscopic Approach (ICD-10-PCS; CPT 44970; principal; 2024-02-28 12:30)
DX: K35.32 Acute appendicitis with perforation, localized peritonitis, and gangrene, without abscess (principal); E11.42 Type 2 diabetes mellitus with diabetic 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; K21.9 Gastro-esophageal reflux disease without esophagitis; E78.5 Hyperlipidemia, unspecified; K38.1 Appendicular concretions; E89.0 Postprocedural hypothyroidism; I10 Essential (primary) hypertension; Z20.822 Contact with and (suspected) exposure to COVID-19; Z79.4 Long term (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 of insulin; Z79.82 Long term (current) use of aspirin; Z79.84 Long term (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 of oral hypoglycemic drugs; Z79.85 Long-term (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 of injectable non-insulin antidiabetic drugs; Z79.890 Hormone replacement therapy; Z79.899 Other long term (current) drug therapy
CPT/HCPCS: 0241U; 36415; 74176; 80053; 81001; 82010; 82947; 83605; 83735; 84484; 85025; 87040; 87086; 87147; 88304; 88329; 93005; 99285; C1758; J0131; J0330; J1100; J1170; J1644; J2270; J2405; J2543; J2704; J2795; J3010

== ENCOUNTER → 2024-02-27 15:23 | Outpatient (BNV) | payer MEDICAID, SELFPAY | PROVIDERS: Admitting Provider Surgery; Emergency Provider Emergency Medicine; PCP Internal Medicine Geriatric Medicine; Visit Provider Internal Medicine Cardiovascular Disease | DX: R07.9 Chest pain, unspecified (principal); R00.0 Tachycardia, unspecified | CPT/HCPCS: 93010 ==

== ENCOUNTER → 2024-02-27 22:43 | Outpatient (BNV) | payer MEDICAID, SELFPAY | PROVIDERS: Admitting Provider Surgery; Emergency Provider Emergency Medicine; PCP Internal Medicine Geriatric Medicine; Visit Provider Nurse Practitioner Acute Care | DX: K35.80 Unspecified acute appendicitis (principal) | CPT/HCPCS: 99223 ==

== ENCOUNTER → 2024-02-27 22:43 | Outpatient (BNV) | payer MEDICAID, SELFPAY | PROVIDERS: Admitting Provider Surgery; Emergency Provider Emergency Medicine; PCP Internal Medicine Geriatric Medicine; Visit Provider Surgery | DX: Z90.49 Acquired absence of other specified parts of digestive tract (principal); K35.80 Unspecified acute appendicitis | CPT/HCPCS: 44970; 99024; 99222; 99499 ==

== ENCOUNTER 2024-03-04 17:56 | Emergency (ER) | payer MEDICAID, SELFPAY ==
--- NOTE | ~2024-03-04 | CT_ITS ---
EXAMINATION: CT ABDOMEN AND PELVIS WITH CONTRAST CLINICAL INFORMATION: Post appendectomy fluid collection COMPARISON: CT abdomen pelvis 02/27/2024 TECHNIQUE: Multidetector volumetric images were obtained from the superior aspect of the liver through the pubic symphysis following administration 85 mL of Omnipaque 350 intravenous contrast. Sagittal and coronal reformatted images were obtained on the technologist's workstation. Oral contrast: No This CT examination was performed using dose optimization techniques as appropriate, variously including the following: *Automated exposure control *Adjustment of mA and/or kV according to patient size (this includes techniques or standardized protocols for targeted exams where dose is matched to indication/reason for exam; i.e. extremities or head) *Use of iterative reconstruction technique DLP: 591 mGy-cm FINDINGS: LUNG BASES: There is a new right-sided pleural effusion with associated right basilar atelectasis. Coronary calcium is present. LIVER, GALLBLADDER, AND BILIARY TREE: The liver is enlarged at 17.8 cm in greatest length. No focal hepatic lesion or biliary ductal dilatation is present. Status post cholecystectomy. PANCREAS: Unremarkable. SPLEEN: Unremarkable. ADRENAL GLANDS: Unremarkable. KIDNEYS AND URETERS: The kidneys are normal in size, shape, and attenuation. No hydronephrosis, hydroureter, or calculi seen. No perinephric stranding. A benign right upper pole 1.3 cm Bosniak class I renal cyst is noted which requires no additional imaging or follow up. No solid renal masses are seen. BLADDER: Small amount of air is present in the bladder. GASTROINTESTINAL TRACT: The small and large bowel are unremarkable. A drainage catheter is seen in the bed of the appendix. The previously seen markedly enlarged thickened appendix with appendicoliths is no longer seen. There is a small fluid collection seen in the right flank measuring 1.7 x 1.3 x 4.4 cm (3:57), just lateral and inferior to the drainage catheter.. No free pelvic fluid is seen. No gross free intraperitoneal air is seen but there is a couple of small air bubbles seen just behind and below the umbilicus (3:61). ABDOMINAL WALL: No significant hernia is appreciated. Midline jesus are present from the patient's recent surgery. LYMPH NODES: No retroperitoneal lymphadenopathy. VASCULAR: Minimal calcific atherosclerotic changes are present in the aorta and iliac vessels. There is no evidence of an abdominal aortic aneurysm. PELVIC VISCERA: The uterus and adnexa are unremarkable aside from a calcification on the dorsum of the uterus that may be related to an old fibroid. OSSEOUS STRUCTURES: Unremarkable. CT/CT abdomen pelvis w IV con IMPRESSION: 1. Status post appendectomy with drainage catheter in place. 2. Small fluid collection right flank as described above. 3. New right-sided pleural effusion with associated atelectasis. 4. Other incidental findings as described above. Fleischner guidelines were followed.
[2024-03-04 18:21] VITALS: BP 156/82; BP 163/70; PULSE 85; RESP 18; TEMP 37.6; O2SAT 96; O2SAT 99; BMI 18.4
[2024-03-04 18:25] VITALS: BP 163/70; PULSE 84; RESP 17; TEMP 37.6; O2SAT 95
--- NOTE | 2024-03-04 18:27 | PC.NURSE ---
Pt presents to ED via EMS from home, Mauritian speaking only, internist medical doctor md utilized. Pt reports surgery 3 days ago here at [facility] [place], went in for appendectomy. Pt reports during surgery they found her gallbladder was also infected. Opened her abd and removed it. Has jesus around umbilical region, drain noted in RLQ. ABD noted to be slightly distended. Pt reports vomiting and chills X2 days, poor PO intake. Denies SOB, CP, diarrhea, trouble urinating. Alert and oriented, breathing even and unlabored, skin warm, feels febrile.
--- NOTE | 2024-03-04 18:28 | ED_ITS ---
HPI - Abdominal Pain General Chief Complaint: Abdominal Pain Stated Complaint: Complications from appendectomy at [facility] [place] Time Seen by Provider: 03/04/24 18:15 Source: patient Mode of arrival: ambulatory Limitations: no limitations History of Present Illness HPI narrative: Patient is status post appendectomy on 02/27 for perforated appendicitis with ANKIT drain in place comes back as patient is still having the pain vomited few times since yesterday with chills no fever moving her bowels normally Related Data Home Medications ?Medication ?Instructions ?Recorded ?Confirmed aspirin 81 mg tablet,delayed 81 mg PO DAILY 07/20/20 02/28/24 release (Adult Low Dose Aspirin) metformin 500 mg tablet See Rx Instructions PO DAILY 07/20/20 02/28/24 hydrochlorothiazide 12.5 mg tablet 12.5 mg PO DAILY 01/07/22 02/28/24 amlodipine 5 mg tablet 5 mg PO DAILY 03/03/22 02/28/24 enalapril maleate 20 mg tablet 20 mg PO BEDTIME 03/03/22 02/28/24 hydroxychloroquine 200 mg tablet 200 mg PO BID 09/09/22 02/28/24 ibuprofen 800 mg tablet 800 mg PO TID PRN pain 09/09/22 02/28/24 mirabegron 25 mg tablet,extended 25 mg PO DAILY 09/09/22 11/17/22 release 24 hr (Myrbetriq) sertraline 100 mg tablet 100 mg PO QAM 09/09/22 02/28/24 trazodone 100 mg tablet 100 mg PO BEDTIME PRN insomnia 09/09/22 02/28/24 acetaminophen 500 mg tablet 500 mg PO Q6H PRN pain 11/17/22 02/28/24 montelukast 10 mg tablet 10 mg PO BEDTIME 03/10/23 02/28/24 cholecalciferol (vitamin D3) 25 50 mcg PO DAILY 02/28/24 02/28/24 mcg (1,000 unit) capsule (Vitamin D3) dulaglutide 0.75 mg/0.5 mL 1.5 mg subcut QWEEK 02/28/24 02/28/24 subcutaneous pen injector (Trulicity) empagliflozin 25 mg tablet 25 mg PO DAILY 02/28/24 02/28/24 (Jardiance) omeprazole 20 mg capsule,delayed 20 mg PO DAILY 02/28/24 02/28/24 release pioglitazone 30 mg tablet 30 mg PO DAILY 02/28/24 Previous Rx's ?Medication ?Instructions ?Recorded levothyroxine 88 mcg tablet 88 mcg PO DAILY 90 days #90 tabs 04/07/21 flash glucose scanning reader #1 ea 01/07/22 (FreeStyle Rama 2 [place]) insulin aspart U-100 100 unit/mL See Rx Instructions subcut TID 30 01/12/22 (3 mL) subcutaneous pen days #15 mL dicyclomine 20 mg tablet 20 mg PO .TIDAC 30 days #90 tabs 03/10/23 sennosides 8.6 mg tablet (senna) 17.2 mg (2 x 8.6 mg) PO BEDTIME 03/10/23 for constipation #60 tabs flash glucose sensor (FreeStyle #2 ea 04/27/23 Rama 2 Sensor kit) pen needle, diabetic 32 gauge x ##100 06/22/23 (BD Ultra-Fine Sandy Pen Needle) pravastatin 20 mg tablet 20 mg PO BEDTIME #30 tabs 08/16/23 blood sugar diagnostic (FreeStyle #100 strips 10/26/23 Lite Strips) gabapentin 300 mg capsule 300 mg PO BEDTIME #30 caps 10/26/23 insulin glargine U-300 conc 300 36 unit (0.12 mL) subcut BEDTIME 12/07/23 unit/mL (3 mL) subcutaneous pen #6 mL (Toujeo Max U-300 SoloStar) amoxicillin 875 mg-potassium 1 tab PO BID #14 tabs 03/02/24 clavulanate 125 mg tablet docusate sodium 100 mg capsule 100 mg PO BID PRN constipation #30 03/02/24 (Colace) caps oxycodone 5 mg tablet 5 mg PO Q4H PRN pain (scale score 03/02/24 7-10) #24 tabs ondansetron 4 mg disintegrating 4 mg PO Q6-8H PRN nausea and 03/04/24 tablet vomiting #7 tabs Allergies Allergy/AdvReac Type Severity Reaction Status Date / Time metformin AdvReac Mild stomach Verified 03/04/24 18:24 upset Review of Systems Review of Systems Yes all other systems are reviewed and are negative PMFSH Past Medical History Medical History Diabetic retinopathy associated with type 2 diabetes mellitus Diabetic 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 associated with type 2 diabetes mellitus 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 Mother Diabetes mellitus Daughter Diabetes mellitus Social History Social History Household Members: Family Housing: House Do you presently have visiting nurse or other home services: No Alcohol intake: current Alcohol intake frequency: does not drink Comment: rings appropriately Patient Tobacco Use Status: Never used Tobacco Second Hand Smoke Exposure: No Use of substances other than those prescribed or required for medical reasons: No Advance Directives: No Advance Directives Information Provided: No Do you have a plan to hurt others: No Plan Patient : No service: No Current occupational status: disabled Current occupation: right handed Physical Exam ED Vital Signs: Vital Signs - 24 hr 03/04/24 18:21 03/04/24 18:25 03/04/24 21:59 Temperature 99.6 F 99.6 F 99.4 F Pulse Rate 85 84 83 Respiratory Rate 18 17 16 Blood Pressure 163/70 H 163/70 H 151/72 H Pulse Oximetry 96 95 94 Oxygen Delivery Method Room Air Room Air Room Air 03/04/24 23:29 Temperature 99 F Pulse Rate 83 Respiratory Rate 16 Blood Pressure 151/72 H Pulse Oximetry 94 Oxygen Delivery Method Room Air BMI result Body Mass Index 18.4 Appearance: Alert. Oriented X3. No acute distress. Eyes: No pallor or icterus ENT: Pharynx normal. Oral Mucosa moist Neck: Normal inspection. Neck supple. CVS: Normal heart rate and rhythm. Pulses normal. Respiratory: No respiratory distress. Equal air entry bilateral, no wheezing/rales/rhonchi Abdomen: Soft and slight tender at the staple line bowel sounds are sluggish. Bowel sounds are present, no mass palpable, no CVA tenderness ANKIT drain in place Skin: Skin warm and dry. Normal skin color. Normal skin turgor. Extremities: No lower extremity edema. No calf tenderness Neuro: Oriented X 3. No motor deficit. Medical Decision Making Medical Decision Making [facility] Narrative: Patient with postop mild abdominal pain with nausea vomiting CT scan without any fluid collection labs are stable potassium was slightly low which was replaced patient is taking p.o. fluids in the ER will discharge patient home advised to follow with surgeon Differential Diagnosis Differential Diagnoses: The differential diagnosis associated with the presentation includes Postop complication/fluid collection/metabolic changes Admission/Observation Consideration of admission/observation: Escalation of care including admission/observation considered Lab Data [facility] Lab Attestation statement: I reviewed the patient's lab results. 03/04/24 20:05 03/04/24 20:05 Labs: Lab Results 03/04/24 Range/Units 20:05 WBC 9.0 (4.8-10.8) X10*3/uL RBC 4.21 (4.20-5.50) X10*6/uL Hgb 11.9 L (12.0-16.0) g/dl Hct 35.7 L (37.0-47.0) % MCV 84.8 (80.0-98.0) fL MCH 28.3 (27.0-33.0) pg MCHC 33.3 (31.0-35.0) g/dl RDW 12.5 (11.0-16.0) % Plt Count 330 D (160-400) X10*3/uL MPV 8.8 L (9.4-12.3) fL Immature Gran % (Auto) 1.3 H (0.0-0.4) % Neut % (Auto) 69.7 (45-73) % Lymph % (Auto) 19.0 L (20-40) % [place] % (Auto) 8.4 (2-11) % Eos % (Auto) 0.9 (0-4) % Baso % (Auto) 0.7 (0-2) % Lymph # (Auto) 1.7 (1.2-4.9) X10*3/uL [place] # (Auto) 0.8 (0.1-1.2) X10*3/uL Eos # (Auto) 0.1 (0.0-0.4) X10*3/uL Baso # (Auto) 0.1 (0.0-0.2) X10*3/uL Abs Immat Gran (auto) 0.12 H (0.00-0.03) X10*3/uL Absolute Neuts (auto) 6.3 (2.0-8.3) x10*3/uL Absolute Nucleated RBC 0.030 H (0.0-0.012) X10*3/uL Nucleated RBC % (auto) 0.3 H (0.0-0.2) /100WBC Sodium 138 (135-145) mmol/L Potassium 2.9 L* D (3.3-5.1) mmol/L Chloride 97 (96-108) mmol/L Carbon Dioxide 31 H (22-29) mmol/L Anion Gap 13 (12-20) BUN 3 L (9-16) mg/dL Creatinine 0.54 (0.5-1.4) mg/dL Estim Creat Clear Calc 80.7 Estimated GFR > 60 Random Glucose 169 H (60-115) mg/dL Lactic Acid 1.0 (0.5-2.0) mmol/L Calcium 9.3 D (8.4-10.2) mg/dL Total Bilirubin 0.3 (0.0-1.0) mg/dL AST 23 (5-31) U/L ALT 20 (0-31) U/L Alkaline Phosphatase 85 (39-117) U/L Total Protein 7.5 (6.5-8.0) g/dL Albumin 3.4 L (3.5-5.0) g/dL Independent Interpretation I performed an independent interpretation of an: CT Scan Radiology Impression Discussion of test interpretation with radiology: I have reviewed the radiologist's reading. Medications Administered Discontinued Medications Generic Name Dose Route Start Last Admin Trade Name Freq PRN Reason Stop Dose Admin Sodium Chloride 1,000 mls @ 999 mls/hr 03/04/24 18:29 03/04/24 20:02 Ns IV 03/04/24 19:29 999 mls/hr .Q1H1M ONE Administration Potassium Chloride 10 meq in 100 mls @ 100 mls/hr 03/04/24 20:47 03/04/24 21:36 Potassium Chloride/H20 IV 03/04/24 21:46 100 mls/hr ONCE ONE Administration Iohexol 100 ml 03/04/24 20:49 03/04/24 20:49 Iohexol 350 Mg/Ml 100 Ml Infus..Btl IV 03/04/24 20:50 85 ml ONCE ONE Administration Morphine Sulfate 4 mg 03/04/24 18:29 03/04/24 20:02 Morphine Sulfate 4 Mg/Ml Cartridge IVPUSH 03/04/24 18:30 4 mg ONCE ONE Administration Protocol Ondansetron HCl 4 mg 03/04/24 18:29 03/04/24 20:02 Ondansetron Hcl 4 Mg/2 Ml Vial IVPUSH 03/04/24 18:30 4 mg ONCE ONE Administration Potassium Bicarbonate 50 meq 03/04/24 20:47 03/04/24 21:36 Potassium Bicarbonate/Cit Ac 25 Meq Tablet.Eff PO 03/04/24 20:48 50 meq ONCE ONE Administration Discharge Plan Discharge Clinical Impression: Abdominal pain Patient Disposition: Home, Self-Care Instructions: Abdominal Pain (ED) Additional Instructions: Postop abdominal pain The CT scan is not showing any significant changes Take medication for nausea/vomiting as prescribed Follow with your surgeon Have food containing high potassium leg bananas/orange juice Prescriptions: New ondansetron 4 mg tablet,disintegrating 4 mg PO Q6-8H PRN (Reason: nausea and vomiting) Qty: 7 0RF No Action levothyroxine 88 mcg tablet 88 mcg PO DAILY 90 Days Qty: 90 1RF Rx Instructions: Dose increased insulin aspart U-100 100 unit/mL (3 mL) insulin pen See Rx Instructions subcut TID 30 Days Qty: 15 6RF Rx Instructions: 4 units small meals, 8 medium meals and 10 units large meals, + 2 units for bg over 200 subcut 3 times a day; subcut 3 times a day; (DME) FreeStyle Rama 2 Sensor Kit See Rx Instructions .ROUTE .MEDSUPPLY Qty: 2 11RF Rx Instructions: As directed change every 2 weeks (DME) pen needle, diabetic [BD Ultra-Fine Sandy Pen Needle] 32 gauge x 5/32 needle See Rx Instructions .ROUTE .COMPLEX Qty: 100 6RF Dose Instruction: USE DIRECTED FOUR TIMES DAILY Rx Instructions: USE DIRECTED FOUR TIMES DAILY pravastatin 20 mg tablet 20 mg PO BEDTIME Qty: 30 6RF (DME) FreeStyle Lite Strips Strip See Rx Instructions .ROUTE .COMPLEX Qty: 100 11RF Dose Instruction: TEST BLOOD SUGAR FOUR TIMES DAILY Rx Instructions: TEST BLOOD SUGAR FOUR TIMES DAILY gabapentin 300 mg capsule 300 mg PO BEDTIME Qty: 30 11RF insulin glargine U-300 conc [Toujeo Max U-300 SoloStar] 300 unit/mL (3 mL) insulin pen 36 unit subcut BEDTIME Qty: 6 3RF Trulicity 0.75 mg/0.5 mL pen injector 1.5 mg subcut QWEEK omeprazole 20 mg capsule,delayed release(DR/EC) 20 mg PO DAILY pioglitazone 30 mg tablet 30 mg PO DAILY cholecalciferol (vitamin D3) [Vitamin D3] 25 mcg (1,000 unit) capsule 50 mcg PO DAILY Jardiance 25 mg tablet 25 mg PO DAILY docusate sodium [Colace] 100 mg capsule 100 mg PO BID PRN (Reason: constipation) Qty: 30 0RF amoxicillin-pot clavulanate 875-125 mg tablet 1 tab PO BID Qty: 14 0RF oxycodone 5 mg tablet 5 mg PO Q4H PRN (Reason: pain (scale score 7-10)) Qty: 24 0RF Rx Instructions: Partial Fill upon patient request. aspirin [Adult Low Dose Aspirin] 81 mg tablet,delayed release (DR/EC) 81 mg PO DAILY metformin 500 mg tablet See Rx Instructions PO DAILY Rx Instructions: 1/2 tablet PO daily; hydrochlorothiazide 12.5 mg tablet 12.5 mg PO DAILY (DME) FreeStyle Rama 2 [place] Misc See Rx Instructions .ROUTE .MEDSUPPLY Qty: 1 0RF Rx Instructions: As directed hydroxychloroquine 200 mg tablet 200 mg PO BID Myrbetriq 25 mg tablet extended release 24 hr 25 mg PO DAILY trazodone 100 mg tablet 100 mg PO BEDTIME PRN (Reason: insomnia) sertraline 100 mg tablet 100 mg PO QAM ibuprofen 800 mg tablet 800 mg PO TID PRN (Reason: pain) montelukast 10 mg tablet 10 mg PO BEDTIME dicyclomine 20 mg tablet 20 mg PO .TIDAC 30 Days Qty: 90 6RF sennosides [senna] 8.6 mg tablet 17.2 mg PO BEDTIME Qty: 60 4RF amlodipine 5 mg tablet 5 mg PO DAILY enalapril maleate 20 mg tablet 20 mg PO BEDTIME acetaminophen 500 mg tablet 500 mg PO Q6H PRN (Reason: pain) Interventions: ED Discharge Assessment Last Done: 03/04/24 23:29 Discharge Date/Time: 03/04/24 23:30 Print Language: Telugu
[2024-03-04] MEDS: Morphine Sulfate 4 MG/ML CARTRIDGE IVPUSH (20:02)
[2024-03-04] MEDS: 0.9 % Sodium Chloride 1,000 ML 999 ML IV (20:02)
[2024-03-04] MEDS: ondansetron HCL 4 MG/2 ML VIAL IVPUSH (20:02)
[2024-03-04 20:10] LABS: MANUAL DIFF FLAG NO
[2024-03-04 20:11] LABS: Basophils Absolute Auto 0.1 X10*3/uL (0.0-0.2); Basophils Percent Auto 0.7 % (0-2); Eosinophils Absolute Auto 0.1 X10*3/uL (0.0-0.4); Eosinophils Percent Auto 0.9 % (0-4); Hematocrit 35.7 % (37.0-47.0); Hemoglobin 11.9 g/dl (12.0-16.0); Imm Gran Abs Auto 0.12 X10*3/uL (0.00-0.03); Imm Gran Pct Auto 1.3 % (0.0-0.4); Lymphocytes Absolute Auto 1.7 X10*3/uL (1.2-4.9); Mean Corpuscular HGB Conc 33.3 g/dl (31.0-35.0); Mean Corpuscular Hemoglobin 28.3 pg (27.0-33.0); Mean Corpuscular Volume 84.8 fL (80.0-98.0); Mean Platelet Volume 8.8 fL (9.4-12.3); Monocytes Absolute Auto 0.8 X10*3/uL (0.1-1.2); Monocytes Percent Auto 8.4 % (2-11); NRBC Pct Auto 0.3 /100WBC (0.0-0.2); Neutrophils Absolute Auto 6.3 x10*3/uL (2.0-8.3); Neutrophils Percent Auto 69.7 % (45-73); Platelet Count 330 X10*3/uL (160-400); Red Blood Count 4.21 X10*6/uL (4.20-5.50); Red Cell Distribution Width 12.5 % (11.0-16.0)
[2024-03-04 20:32] LABS: Alanine Aminotransferase 20 U/L (0-31); Albumin Level 3.4 g/dL (3.5-5.0); Alkaline Phosphatase 85 U/L (39-117); Anion Gap 13 (12-20); Aspartate Amino Transferase 23 U/L (5-31); Bilirubin Total 0.3 mg/dL (0.0-1.0); Blood Urea Nitrogen 3 mg/dL (9-16); Calcium 9.3 mg/dL (8.4-10.2); Carbon Dioxide 31 mmol/L (22-29); Chloride 97 mmol/L (96-108); Creatinine Clr Calc Pharmacy 80.7; Estimated Glomerular Filt Rate > 60; Glucose Random 169 mg/dL (60-115); Potassium 2.9 mmol/L (3.3-5.1); Sodium 138 mmol/L (135-145); Total Protein 7.5 g/dL (6.5-8.0)
[2024-03-04] MEDS: iohexoL 350 MG/ML 100 ML INFUS..BTL IV (20:49)
[2024-03-04] MEDS: Potassium Bicarbonate/Cit AC 25 MEQ TABLET.EFF 50 MEQ PO (21:36)
[2024-03-04] MEDS: Potassium Chloride/H20 10 MEQ/100 ML PIGGYBACK 100 MEQ IV (21:36)
[2024-03-04 21:59] VITALS: BP 151/72; PULSE 83; RESP 16; TEMP 37.4; O2SAT 94
[2024-03-04 23:29] VITALS: BP 151/72; PULSE 83; RESP 16; TEMP 37.2; O2SAT 94
== END 2024-03-04 23:30 | disposition home or self-care (01) ==
PROVIDERS: Emergency Provider Internal Medicine
DX: R10.9 Unspecified abdominal pain (principal); R11.10 Vomiting, unspecified; R11.2 Nausea with vomiting, unspecified; E11.9 Type 2 diabetes mellitus without complications
CPT/HCPCS: 36415; 74177; 80053; 83605; 85025; 96374; 96375; 99284; J2270; J2405; J3480; Q9967

== ENCOUNTER 2024-03-08 11:20 | Outpatient (AMB) | payer MEDICAID, SELFPAY ==
--- NOTE | 2024-03-08 11:34 | MHC.OFFVIS ---
Intake Visit Reasons: s/p open appendectomy Intake Note: This patient presents for a post-op assessment status post open appendectomy. Patient c/o; reports open wound, reports draining, reports foul odor. Beer Cooler Required: Yes Beer Cooler Language: Housing And Residence Life Director Name: Daniela Information Interpreted: non-clinical & clinical Accompanied by: Family/Other Allergies metformin Adverse Reaction (Mild, Verified 03/08/24 11:48) stomach upset HPI HPI s/p open appendectomy: Details: 58-year-old female here for postop visit. She would undergone open appendectomy via midline approach last 02/28/2024 because of perforated appendicitis. She was discharged on March 02 with a drain in place. She apparently went to the ER on March 04 because of vomiting but her CT scan was unremarkable She says she is good oral intake. She did describe some discharge from her incision. She has minimal output from her ANKIT drain. 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 Mother Diabetes mellitus Daughter Diabetes mellitus Social History Household Members: Family Housing: House Do you presently have visiting nurse or other home services: No Alcohol intake: current Alcohol intake frequency: does not drink Comment: rings appropriately Patient Tobacco Use Status: Never used Tobacco Second Hand Smoke Exposure: No service: No Current occupational status: disabled Current occupation: right handed Female Reproductive History Menstrual Age of Menarche: 8 Review of Systems Const Denies chills and Denies fever(s) Card Denies chest pain GI Denies abdominal pain Denies difficulty voiding Physical Exam Const General: comfortable and no acute distress Resp Effort & Inspection: normal respiratory effort GI Other: Midline incision healing well but with 2 areas with some drainage consistent with subcutaneous fat necrosis, redness along jesus, ANKIT drain with very scanty output, thin serosanguineous Palpation (GI): Soft to palpation, not firm and no guarding Assessment & Plan Assessment & Plan (1) S/P appendectomy: Code(s): Z90.49 - Acquired absence of other specified parts of digestive tract Category: Surgical Plan: I removed all her skin jesus because of redness. I reinforced the incisions with Steri-Strips. There were 2 areas that I open to drain because of what appears to be subcutaneous fat necrosis. I had probed this with Q-tips She is not to do any lifting more than 15 lb for the next month. I will see her again in the office in 2 weeks I removed her ANKIT drain and this was intact. Her path report shows perforated appendicitis Coding Level of Care Code Global (50252) Diagnoses S/P appendectomy Z90.49
== END 2024-03-08 11:50 | disposition home or self-care (01) ==
PROVIDERS: PCP Internal Medicine Geriatric Medicine; Visit Provider Surgery
DX: Z90.49 Acquired absence of other specified parts of digestive tract (principal)
CPT/HCPCS: 99024

== ENCOUNTER → 2024-03-08 11:20 | Outpatient (BNVA) | payer MEDICAID, SELFPAY | PROVIDERS: PCP Internal Medicine Geriatric Medicine; Visit Provider Surgery | DX: K35.32 Acute appendicitis with perforation, localized peritonitis, and gangrene, without abscess (principal); Z90.49 Acquired absence of other specified parts of digestive tract | CPT/HCPCS: 99212 ==

== ENCOUNTER → 2024-03-09 08:56 | Outpatient (BNVA) | payer MEDICAID, SELFPAY | PROVIDERS: PCP Internal Medicine Geriatric Medicine; Visit Provider Surgery ==

== ENCOUNTER 2024-03-22 14:12 | Outpatient (AMB) | payer MEDICAID, SELFPAY ==
[2024-03-22 14:21] VITALS: BP 120/65; PULSE 94
--- NOTE | 2024-03-22 14:21 | A.OFFVIS_ITS ---
Vital Signs 03/22/24 14:21 Height 5 ft 2 in BP 120/65 Blood Pressure Location Rt brachial Position Sitting Pulse 94 Intake Visit Reasons: 2 week s/p open appendectomy Intake Note: This patient presents for a two week follow-up assessment for wound check status post open appendectomy. Patient c/o; reports incisions are open and oozing, reports foul odor, reports chills, reports no fever. Real Estate Site Analyst Required: Yes Real Estate Site Analyst Language: Credit Collection Specialist Name: Daniela Information Interpreted: non-clinical & clinical Accompanied by: Spouse Allergies metformin Adverse Reaction (Mild, Verified 03/22/24 14:24) stomach upset HPI HPI 2 week s/p open appendectomy: Details: She has here for a postop visit after open appendectomy via laparotomy last month. She has good oral intake. She denies any abdominal pain. She has good bowel movements. However, she says she still has this open wound on the lower part of the laparotomy incision and this drains as well. She has had no fever. She seems to feel well overall. 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 Mother Diabetes mellitus Daughter Diabetes mellitus Social History Household Members: Family Housing: House Do you presently have visiting nurse or other home services: No Alcohol intake: current Alcohol intake frequency: does not drink Comment: rings appropriately Patient Tobacco Use Status: Never used Tobacco Second Hand Smoke Exposure: No service: No Current occupational status: disabled Current occupation: right handed Female Reproductive History Menstrual Age of Menarche: 8 Review of Systems Const Denies chills and Denies fever(s) Card Denies chest pain, Denies dyspnea and Denies dyspnea on exertion Resp Denies cough, Denies dyspnea and Denies dyspnea on exertion GI Denies hematochezia and Denies change in bowel habits Denies hematuria Musc Denies back pain and Denies limited range of motion Neuro Denies focal weakness and Denies convulsions Psych Denies depression and Denies mood swings Physical Exam Vital Signs: Last Vital Signs Pulse 94 03/22/24 14:21 BP 120/65 03/22/24 14:21 Const Other: Looks well General: comfortable and no acute distress Resp Effort & Inspection: normal respiratory effort Cardio Rate: regular rate GI Other: Midline incision is well healed except for an area of the lower part with about a 2 cm open wound from skin separation with good granulation, no tunneling, no pus Palpation (GI): Soft to palpation and not firm Assessment & Plan Assessment & Plan (1) S/P appendectomy: Code(s): Z90.49 - Acquired absence of other specified parts of digestive tract Category: Surgical Plan: She continues to do well postoperatively. She has this residual open wound with good granulation. This has improved compared to the last time I saw her and is now more superficial I have instructed her to continue to do good wound care with b.i.d. dressing changes. She is to avoid any lifting She has good GI functions and looks well clinically I will see her again for another wound check in 1 month. Coding Level of Care Code Global (29259) Diagnoses S/P appendectomy Z90.49
== END 2024-03-22 14:43 | disposition home or self-care (01) ==
PROVIDERS: PCP Internal Medicine Geriatric Medicine; Visit Provider Surgery
DX: Z90.49 Acquired absence of other specified parts of digestive tract (principal)
CPT/HCPCS: 99024

== ENCOUNTER → 2024-03-22 14:12 | Outpatient (BNVA) | payer MEDICAID, SELFPAY | PROVIDERS: PCP Internal Medicine Geriatric Medicine; Visit Provider Surgery | DX: Z51.89 Encounter for other specified aftercare (principal); Z90.49 Acquired absence of other specified parts of digestive tract | CPT/HCPCS: 99212 ==

== ENCOUNTER 2024-03-23 14:36 | Outpatient (REF) | payer MEDICAID, SELFPAY | END 2024-03-23 14:37 | disposition home or self-care (01) | LOC: HO.MAMMO 14:36 | PROVIDERS: PCP Internal Medicine Geriatric Medicine; Visit Provider Internal Medicine Geriatric Medicine | DX: Z12.31 Encounter for screening mammogram for malignant neoplasm of breast (principal) | CPT/HCPCS: 77063; 77067 ==

== ENCOUNTER → 2024-03-23 15:00 | Outpatient (BNV) | payer MEDICAID, SELFPAY | PROVIDERS: PCP Internal Medicine Geriatric Medicine; Visit Provider Radiology Diagnostic Radiology | DX: Z12.31 Encounter for screening mammogram for malignant neoplasm of breast (principal) | CPT/HCPCS: 77063; 77067 ==

== ENCOUNTER 2024-04-03 18:14 | Outpatient (REF) | payer MEDICAID, SELFPAY | END 2024-04-03 18:15 | disposition home or self-care (01) | LOC: HO.HHCLNP 18:14 | PROVIDERS: Visit Provider Internal Medicine Geriatric Medicine | DX: T81.49XA Infection following a procedure, other surgical site, initial encounter (principal) | CPT/HCPCS: 87070; 87077; 87186; 87205 ==

== ENCOUNTER 2024-04-12 14:09 | Outpatient (AMB) | payer MEDICAID, SELFPAY ==
--- NOTE | 2024-04-12 14:38 | MHC.AMDMED ---
Intake Intake Visit Reasons: 60 minute/CONFIRMED Promotions Manager Required: Yes Promotions Manager Language: Mortising Machine Operator Name: [facility] [place] Accompanied by: Self / Same As Patient Allergies metformin Adverse Reaction (Mild, Verified 03/22/24 14:24) stomach upset HPI Comprehensive Diabetes Asmnt Most Recent Diabetes Results: Microalb/Creat Ratio 87.0 ug/mg cr (<30) H 12/20/23 Cholesterol 138 mg/dL (<200) 12/20/23 HDL Cholesterol 53 mg/dL (>40) 12/20/23 Triglycerides 69 mg/dL (<150) 12/20/23 Creatinine 0.54 mg/dL (0.5-1.4) 03/04/24 Blood Urea Nitrogen 3 mg/dL (9-16) L 03/04/24 Sodium 138 mmol/L (135-145) 03/04/24 Potassium 2.9 mmol/L (3.3-5.1) L* 03/04/24 Chloride 97 mmol/L (96-108) 03/04/24 Carbon Dioxide 31 mmol/L (22-29) H 03/04/24 Calcium 9.3 mg/dL (8.4-10.2) 03/04/24 AST 23 U/L (5-31) 03/04/24 ALT 20 U/L (0-31) 03/04/24 Total Protein 7.5 g/dL (6.5-8.0) 03/04/24 Albumin 3.4 g/dL (3.5-5.0) L 03/04/24 [facility] Medical History Diabetic retinopathy associated with type 2 diabetes mellitus Diabetic 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 associated with type 2 diabetes mellitus [facility] (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 of 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 Mother Diabetes mellitus Daughter Diabetes mellitus Social History Household Members: Family Housing: House Do you presently have visiting nurse or other home services: No Alcohol intake: current Alcohol intake frequency: does not drink Comment: rings appropriately Patient Tobacco Use Status: Never used Tobacco Second Hand Smoke Exposure: No service: No Current occupational status: disabled Current occupation: right handed Female Reproductive History Menstrual Age of Menarche: 8 Assessment & Plan Assessment & Plan (1) Type 2 diabetes mellitus with diabetic neuropathy, unspecified: Code(s): E11.40 - Type 2 diabetes mellitus with diabetic neuropathy, unspecified Qualifiers: Diabetes mellitus [facility] use: with [facility] use Qualified Code(s): E11.40 - Type 2 diabetes mellitus with diabetic neuropathy, unspecified; Z79.4 - USP (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 of insulin Plan: Learning objectives: The patient was provided with verbal and written education on the following topics as outlined below. The patient met all learning objectives and was able to verbalize understanding and provide teach back of education topics discussed . The patient was provided with the opportunity to ask questions and all questions were answered. Patient Assessment Assess patient education level/literacy/barriers patient could identify foods that she is eating from carb list Patient questions/concerns patient reports she has been able to receive Trulicity 1.5 mg for the past 2 months, reports that last week she went to PCP at [facility] they did another A1c which was 7.7 % Patient also has upcoming visit with Dr. Valdez in the 1st week of 04/2024, instructed patient to make sure she brings meter to visit with Dr. Valdez What is Diabetes? Pathophysiology How the body produces and uses insulin Identify type of DM Risk factors Signs of Diabetes Brief overview of Diabetes Management Monitoring blood sugar Following a meal plan Regular exercise Maintaining a healthy weight Taking medication as needed Members of the care team (PCP, RN, MA, RD, CDE, aerial gunner superintendent) Blood glucose monitoring When/how often to test Target blood sugar ranges Patient did not bring reader to today's visit Introduction to Nutrition Importance of healthy diet in managing DM Diet is personalized to individual preference Review patient?s regular diet/food preferences Who prepares meals/does food shopping/ Dining out?/ Barriers? How diet effects glucose Eating 3 balanced meals a day with small, healthy snacks between meals Review food groups Carbohydrates: What is a carbohydrate/Which food/food groups are considered carbohydrates Effect of carbohydrates on blood glucose Portion sizes Reading food labels Basic carb counting (if applicable per nursing assessment) Plate method Meal planning Recommendations: Follow plate method, consistent carbs and read nutritional labels. Educational Materials: The patient was provided with the following written educational materials: Planning Healthy Meals Handout Patient Response to instructions: Comprehension of Instructions: Fair Readiness to make changes: Contemplation How confident they feel about making changes: Positive Smart Goal:? Patient will bring meter to every visit at endocrine center Patient Response to instructions: Comprehension of Instructions: Fair Readiness to make changes:? Contemplation How confident they feel about making changes: Fair Portions of this note were created using voice recognition software, please excuse any words or phrases that may have been misinterpreted. Coding Level of Care Code Est Pt Level 1 (00870) Diagnoses Type 2 diabetes mellitus with diabetic neuropathy, with long-term current use of insulin E11.40; Z79.4 Diabetes mellitus [facility] insulin use: with [facility] use
== END 2024-04-12 14:42 | disposition home or self-care (01) ==
PROVIDERS: PCP Internal Medicine Geriatric Medicine; Visit Provider Registered Nurse Diabetes Educator
DX: E11.40 Type 2 diabetes mellitus with diabetic neuropathy, unspecified (principal); Z79.4 Long term (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 of insulin

== ENCOUNTER → 2024-04-12 14:09 | Outpatient (BNVA) | payer MEDICAID, SELFPAY | PROVIDERS: PCP Internal Medicine Geriatric Medicine; Visit Provider Registered Nurse Diabetes Educator | DX: E11.65 Type 2 diabetes mellitus with hyperglycemia (principal); E11.319 Type 2 diabetes mellitus with unspecified diabetic retinopathy without macular edema; E11.40 Type 2 diabetes mellitus with diabetic neuropathy, unspecified; Z79.4 Long term (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 of insulin | CPT/HCPCS: 99211 ==

== ENCOUNTER 2024-04-17 11:29 | Outpatient (REF) | payer MEDICAID, SELFPAY ==
[2024-04-18 07:32] LABS: ~HepC Num1 0.09 S/CO (0.00-0.79); ~Hepatitis C Antibody Nonreactive (Nonreactive)
== END 2024-04-17 11:30 | disposition home or self-care (01) ==
LOC: HO.HHCL 11:29
PROVIDERS: Visit Provider Internal Medicine Geriatric Medicine
DX: Z11.59 Encounter for screening for other viral diseases (principal)
CPT/HCPCS: 36415; 86803

== ENCOUNTER 2024-04-19 09:06 | Outpatient (AMB) | payer MEDICAID, SELFPAY ==
--- NOTE | 2024-04-19 09:08 | MHC.OFFVIS ---
Vital Signs 04/19/24 09:09 Height 5 ft 2 in Weight 142 lb BMI 26.0 BP 128/60 Blood Pressure Location Lt brachial Position Sitting Pulse 88 Intake Visit Reasons: wound check, oozing s/p appendectomy Intake Note: This patient presents for a wound check, oozing status post appendectomy. Patient c/o; reports oozing, reports new open incision,reports completed one round of abx and she was prescribed another round of abx by pcp office. Stave Machine Tender Required: Yes Stave Machine Tender Language: Computer Repair Instructor Services: Stave Machine Tender Present Stave Machine Tender Name: Daniela Information Interpreted: non-clinical & clinical Accompanied by: Spouse Allergies metformin Adverse Reaction (Mild, Verified 04/19/24 09:18) stomach upset HPI HPI wound check, oozing s/p appendectomy: Details: She underwent open appendectomy after attempted laparoscopic appendectomy for acute appendicitis this 02/28/2024. She called the office to be checked because of some discharge from her midline incision. She has good oral intake. She says that she has had this 2 areas on her midline incision that have some drainage. She otherwise denies any fever. She denies any significant abdominal pain. She says she is to feels well overall. [facility] Medical History Diabetic retinopathy associated with type 2 diabetes mellitus Diabetic 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 associated with type 2 diabetes mellitus [facility] (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 of 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 Mother Diabetes mellitus Daughter Diabetes mellitus Social History Household Members: Family Housing: House Do you presently have visiting nurse or other home services: No Alcohol intake: current Alcohol intake frequency: does not drink Comment: rings appropriately Patient Tobacco Use Status: Never used Tobacco Second Hand Smoke Exposure: No service: No Current occupational status: disabled Current occupation: right handed Female Reproductive History Menstrual Age of Menarche: 8 Review of Systems Const Denies chills and Denies fever(s) Card Denies chest pain, Denies dyspnea and Denies dyspnea on exertion Resp Denies cough, Denies dyspnea and Denies dyspnea on exertion GI Denies hematochezia and Denies change in bowel habits Denies hematuria Musc Denies back pain and Denies limited range of motion Neuro Denies focal weakness and Denies convulsions Psych Denies depression and Denies mood swings Physical Exam Vital Signs: Last Vital Signs Pulse 88 04/19/24 09:09 BP 128/60 04/19/24 09:09 BMI result Body Mass Index 26.0 Const General: comfortable and no acute distress Orientation/consciousness: patient oriented x3 Neck Neck: Yes no lymphadenopathy Resp Auscultation: clear to auscultation bilaterally Cardio Rhythm: regular rhythm GI Other: Two small areas on the midline incision that are open, about 1 cm each in diameter, with healthy granulation tissue, no signs of infection, no abscess, no cellulitis Palpation (GI): Soft to palpation, nontender and no guarding Neuro General: patient oriented x3 Assessment & Plan Assessment & Plan (1) S/P appendectomy: Code(s): Z90.49 - Acquired absence of other specified parts of digestive tract Category: Surgical Plan: She has 2 open areas on the midline incision that appeared to be because of foreign body reaction with hypergranulation due to her sutures. I assured her about this and I told her that she should continue doing good wound care and keeping the areas clean and dry. I will see her again in about 2 weeks in the office to re-evaluate this open wounds. She does not need to have any antibiotics at this time. Coding Level of Care Code Global (90875) Diagnoses S/P appendectomy Z90.49
[2024-04-19 09:09] VITALS: BP 128/60; PULSE 88; BMI 26.0
== END 2024-04-19 09:29 | disposition home or self-care (01) ==
PROVIDERS: PCP Internal Medicine Geriatric Medicine; Visit Provider Surgery
DX: Z90.49 Acquired absence of other specified parts of digestive tract (principal)
CPT/HCPCS: 99024

== ENCOUNTER → 2024-04-19 09:06 | Outpatient (BNVA) | payer MEDICAID, SELFPAY | PROVIDERS: PCP Internal Medicine Geriatric Medicine; Visit Provider Surgery | DX: E11.42 Type 2 diabetes mellitus with diabetic 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 (principal); E11.319 Type 2 diabetes mellitus with unspecified diabetic retinopathy without macular edema; C73 Malignant neoplasm of thyroid gland; Z79.4 Long term (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 of insulin; Z48.815 Encounter for surgical aftercare following surgery on the digestive system; Z90.49 Acquired absence of other specified parts of digestive tract | CPT/HCPCS: 82947; 83036; 99212 ==

== ENCOUNTER 2024-04-19 09:37 | Outpatient (AMB) | payer MEDICAID, SELFPAY ==
--- NOTE | 2024-04-19 09:41 | A.OFFVIS_ITS ---
Vital Signs 04/19/24 09:48 Height 5 ft 2 in Weight 141 lb 1.533 oz BMI 25.8 BP 118/60 Blood Pressure Location Rt brachial Position Sitting Pulse 82 Pulse Source Pulse Oximeter Intake Visit Reasons: Type 2 DM-confirmed Intake Note: New Patient presents today to established treatment for DM Type 2: Last Diabetic Eye Exam: 02/2024 Last Podiatry Exam- Does not see a Production Control Specialist Random Glucose- 142 mg/dL, Today Most recent HbA1c- 7.4 %, 04/19/2024 Die Repair Machinist Required: Yes Die Repair Machinist Language: Regional Training Manager Services: Die Repair Machinist Present Die Repair Machinist Name: RAJEEV Fernández/VERONIKA Greene Accompanied by: Self / Same As Patient Allergies metformin Adverse Reaction (Mild, Verified 04/19/24 09:44) stomach upset Medication List - Last Reconciled 04/19/24 by Mila Mast MD acetaminophen 500 mg PO Q6H PRN amlodipine 5 mg PO DAILY amoxicillin-pot clavulanate 875-125 mg 1 tab PO BID aspirin (Adult Low Dose Aspirin) 81 mg PO DAILY blood sugar diagnostic (FreeStyle Lite Strips) TEST BLOOD SUGAR FOUR TIMES DAILY cholecalciferol (vitamin D3) (Vitamin D3) 50 mcg PO DAILY dicyclomine 20 mg PO .TIDAC 30 days docusate sodium (Colace) 100 mg PO BID PRN dulaglutide (Trulicity) 1.5 mg subcut QWEEK empagliflozin (Jardiance) 25 mg PO QAM enalapril maleate 20 mg PO BEDTIME flash glucose scanning reader (BubbleLife MediaStyle Rama 2 Alma) As directed flash glucose sensor (FreeStyle Rama 2 Sensor kit) As directed change every 2 weeks gabapentin 300 mg PO BEDTIME hydrochlorothiazide 12.5 mg PO DAILY hydroxychloroquine 200 mg PO BID ibuprofen 800 mg PO TID PRN insulin aspart U-100 4 units small meals, 8 medium meals and 10 units large meals, + 2 units for bg over 200 subcut 3 times a day; subcut 3 times a day; 30 days insulin glargine U-300 conc (Toujeo Max U-300 SoloStar) 36 units (0.12 mL) subcut BEDTIME levothyroxine 88 mcg PO DAILY 90 days metformin 1/2 tablet PO daily; mirabegron ER (Myrbetriq) 25 mg PO DAILY montelukast 10 mg PO BEDTIME omeprazole 20 mg PO DAILY ondansetron 4 mg PO Q6-8H PRN oxycodone 5 mg PO Q4H PRN pen needle, diabetic (BD Ultra-Fine Sandy Pen Needle) USE DIRECTED FOUR TIMES DAILY pioglitazone 30 mg PO DAILY pravastatin 20 mg PO BEDTIME sennosides (senna) 17.2 mg (2 x 8.6 mg) PO BEDTIME sertraline 100 mg PO QAM trazodone 100 mg PO BEDTIME PRN HPI Comments Details: Patient is 59 yo female with DM type 2 diagnosed around 2004 who presents for continued management of diabetes. Current diabetes medications include: Metformin 250mg daily (intolerant higher doses), Jardiance 25 mg, Actos 30mg, Truilcity 1.5mg daily, Toujeo 36 units, and Humalog will be 4 small meals, 8 units for medium meals and 12 units for a large meal = 2 units if BG>200 TIDcc Past Medical History includes: hypertensio n, HLD arthritis, depression, unino dular goiter s/p thyroidectomy with papillary microcarcinoma), gastroparesis Micro and Macro Vascular Complications: neuropathy, +alb/cr, retinopathy, gastroparesis Blood Glucose Monitoring: KirkeWeb download shows she is using this CGMS 58% of the time. Average glucose is 181with GMI of 7.6 51% range with 49% hyperglycemia and 0% hypoglycemia. Pattern shows increased blood sugars evening 9-2am. Has snack at ~7pm for which she takes no short acting insulin Eye Exam-February 2024undergoing VEGF treatment for retinopathy No podiatry. +mild neuropathy well managed on gabapentin On levothyroxine 88 ug QD for post-surgical hypothyroidism for papillary microcarcinoma ROS CONSTITUTIONAL: Denies weight loss, fever and chills. HEENT: Denies changes in vision and hearing. RESPIRATORY: Denies SOB and cough. CV: Denies palpitations and CP GI: Denies abdominal pain, nausea, vomiting and diarrhea. : Denies dysuria and urinary frequency. MSK: Denies new myalgia and joint pain. SKIN: Denies rash and pruritus. NEUROLOGICAL: Denies headache PSYCHIATRIC: Denies recent changes in mood. PHYSICAL EXAM: GENERAL: Alert and oriented x 3. NAD EYES: EOMI. Anicteric. HENT: Moist mucous membranes. No scleral icterus. No cervical lymphadenopathy. LUNGS: Clear to auscultation bilaterally. CARDIOVASCULAR: Regular rate and rhythm. No murmur. No JVD. ABDOMEN: Soft, non-tender +bs EXTREMITIES: No edema. Non-tender. Visual exam of foot performed. No ulcerations or open lesions. +DP pulses. Sensation intact to monofilament exam. Nml vibratory sense SKIN: No rashes or lesions. Warm. NEUROLOGIC: No focal neurological deficits. CN II-XII grossly intact PSYCHIATRIC: Cooperative. Appropriate mood and affect [facility] Medical History Diabetic retinopathy associated with type 2 diabetes mellitus Diabetic 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 associated with type 2 diabetes mellitus nursing home (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 of 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 Mother Diabetes mellitus Daughter Diabetes mellitus Social History Household Members: Family Housing: House Do you presently have visiting nurse or other home services: No Alcohol intake: current Alcohol intake frequency: does not drink Comment: rings appropriately Patient Tobacco Use Status: Never used Tobacco Second Hand Smoke Exposure: No service: No Current occupational status: disabled Current occupation: right handed Female Reproductive History Menstrual Age of Menarche: 8 Physical Exam Vital Signs: Last Vital Signs Pulse 82 04/19/24 09:48 BP 118/60 04/19/24 09:48 BMI result Body Mass Index 25.8 Absence of Cushingoid features. Absence of acromegalic features. Neck exam reveals nl size thyroid about 15 gms. No thyroid nodules palpable. No carotid bruits present. Lungs CTA. Heart S1 S2, Reg R/R. No M/R/ G. Skin exam reveals absence of vitiligo or acanthosis nigricans. Abdominal exam reveals Soft NT/ND with NA BS. No organomegaly present. Neck Other: . Extrem Other: Visual exam of foot performed. No ulcerations or open lesions. No onchomycosis, no callouses.Pulses 2 + distally Sensation intact to monofilament exam. Vibratory sensation sensed is decreased with 128 Hz tuning fork Results AMB Hemoglobin A1c AMB Hemoglobin A1c 7.4 % Last Edit by RAJEEV Fernández on 04/19/24 10:20 Results Reviewed Results Reviewed: Laboratory Last Values Glucose (Clinic) 142 mg/dL (60-115) H 04/19/24 09:55 Hgb A1c (Clinic) 7.4 % (4.0-6.0) H 04/19/24 09:43 Assessment & Plan Assessment & Plan (1) Diabetic 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 associated with type 2 diabetes mellitus: Code(s): E11.42 - Type 2 diabetes mellitus with diabetic 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 Category: Medical Plan: continue gabapentin (2) Diabetic retinopathy associated with type 2 diabetes mellitus: Code(s): E11.319 - Type 2 diabetes mellitus with unspecified diabetic retinopathy without macular edema Category: Medical Qualifiers: Diabetic retinopathy severity: with unspecified retinopathy severity Diabetes mellitus macular edema: macular edema presence unspecified Laterality: unspecified laterality Qualified Code(s): E11.319 - Type 2 diabetes mellitus with unspecified diabetic retinopathy without macular edema Plan: continue regular eye exams (3) long term acute care registered nurse (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 of insulin: Code(s): Z79.4 - long term acute care registered nurse (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 of insulin Category: Medical Plan: CGM monitoring (4) Papillary microcarcinoma of thyroid: Code(s): C73 - Malignant neoplasm of thyroid gland Category: Medical Plan: check TSH Plan A1C 7.4% today. continues to improve She will increase trulicity to 3mg weekly. fup 3 months Orders: Orders AMB Hemoglobin A1c Today E11.9 - Type 2 diabetes mellitus without complications TSH reflex Free T4 Today E03.9 - Hypothyroidism, unspecified Basic Metabolic Panel Today E11.319 - Type 2 diabetes mellitus with unspecified diabetic retinopathy without macular edema, E87.6 - Hypokalemia Medications: New dulaglutide (Trulicity) 3 mg (0.5 mL) subcut QWEEK 6 mL 3RF Coding Level of Care Code Tele Est Pt Level 5 (19016) Diagnoses Diabetic 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 associated with type 2 diabetes mellitus E11.42 Diabetic retinopathy associated with type 2 diabetes mellitus, macular edema presence unspecified, unspecified laterality, unspecified retinopathy severity E11.319 Diabetic retinopathy severity: with unspecified retinopathy severity Diabetes mellitus macular edema: macular edema presence unspecified Laterality: unspecified laterality long term acute care registered nurse (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 of insulin Z79.4 Papillary microcarcinoma of thyroid C73 Time Spent (min) 47
[2024-04-19 09:48] VITALS: BP 118/60; PULSE 82; BMI 25.8
[2024-04-19 09:59] LABS: Glucose, Whole Blood 142 mg/dL (60-115)
== END 2024-04-19 10:22 | disposition home or self-care (01) ==
PROVIDERS: PCP Internal Medicine Geriatric Medicine; Visit Provider Internal Medicine
DX: E11.42 Type 2 diabetes mellitus with diabetic 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 (principal); E11.319 Type 2 diabetes mellitus with unspecified diabetic retinopathy without macular edema; Z79.4 Long term (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 of insulin; C73 Malignant neoplasm of thyroid gland
CPT/HCPCS: 99215

== ENCOUNTER 2024-04-19 10:27 | Outpatient (REF) | payer MEDICAID, SELFPAY ==
[2024-04-19 11:33] LABS: Anion Gap 11 (12-20); Blood Urea Nitrogen 19 mg/dL (9-16); Calcium 10.2 mg/dL (8.4-10.2); Carbon Dioxide 32 mmol/L (22-29); Chloride 100 mmol/L (96-108); Estimated Glomerular Filt Rate > 60; Glucose Random 176 mg/dL (60-115); Potassium 4.6 mmol/L (3.3-5.1); Sodium 138 mmol/L (135-145)
[2024-04-19 11:52] LABS: TSH reflex Free T4 1.98 uIU/mL (0.32-4.0)
== END 2024-04-19 10:28 | disposition home or self-care (01) ==
LOC: HO.10HDL 10:27
PROVIDERS: Visit Provider Internal Medicine
DX: E11.319 Type 2 diabetes mellitus with unspecified diabetic retinopathy without macular edema (principal); E03.9 Hypothyroidism, unspecified; E87.6 Hypokalemia
CPT/HCPCS: 36415; 80048; 84443

== ENCOUNTER 2024-04-24 12:51 | Outpatient (REF) | payer MEDICAID, SELFPAY ==
--- NOTE | ~2024-04-24 | CT_ITS ---
EXAMINATION: CT ABDOMEN AND PELVIS WITHOUT CONTRAST CLINICAL INFORMATION: Nonhealing central wound after appendectomy COMPARISON: CT abdomen pelvis 03/04/2024 TECHNIQUE: Multidetector volumetric imaging was performed from the superior aspect of the liver through the pubic symphysis. Sagittal and coronal reformatted images were obtained on the technologist's workstation. This CT examination was performed using dose optimization techniques as appropriate, variously including the following: *Automated exposure control *Adjustment of mA and/or kV according to patient size (this includes techniques or standardized protocols for targeted exams where dose is matched to indication/reason for exam; i.e. extremities or head) *Use of iterative reconstruction technique DLP: 444 mGy-cm FINDINGS: LUNG BASES: The visualized lung bases are unremarkable. LIVER, GALLBLADDER, AND BILIARY TREE: The liver is normal in size with decreased attenuation consistent with hepatic steatosis. No focal hepatic lesion or biliary ductal dilatation is present. Status post cholecystectomy. PANCREAS: Unremarkable. SPLEEN: Unremarkable. ADRENAL GLANDS: Unremarkable. KIDNEYS AND URETERS: The kidneys are normal in size, shape, and attenuation. No hydronephrosis, hydroureter, or calculi seen. No perinephric stranding. BLADDER: Unremarkable. GASTROINTESTINAL TRACT: The small and large bowel are unremarkable. The previously seen drainage catheter in the appendiceal bed is no longer present and a small residual collection seen at the time of the prior study is no longer present. ABDOMINAL WALL: There is a new fluid collection/abscess in the anterior abdominal wall in the region of the umbilicus measuring 3.9 x 3.9 x 11.4 cm. LYMPH NODES: No retroperitoneal lymphadenopathy. VASCULAR: Unremarkable. PELVIC VISCERA: The uterus and adnexa are unremarkable aside from the presence of a subserosal calcification on the superior uterus consistent with an old fibroid. OSSEOUS STRUCTURES: Unremarkable. CT/CT abdomen pelvis wo IV con IMPRESSION: 1. New anterior abdominal wall fluid collection/abscess. 2. Other incidental findings as described above. Fleischner guidelines were followed.
== END 2024-04-24 12:52 | disposition home or self-care (01) ==
LOC: HO.CT 12:51
PROVIDERS: PCP Internal Medicine Geriatric Medicine; Visit Provider General Practice
DX: T81.30XD Disruption of wound, unspecified, subsequent encounter (principal)
CPT/HCPCS: 74176

== ENCOUNTER 2024-04-25 10:18 | Outpatient (AMB) | payer MEDICAID, SELFPAY ==
--- NOTE | 2024-04-25 10:49 | MHC.OFFVIS ---
Intake Visit Reasons: abd wall fluid collection, s/p appy Allergies metformin Adverse Reaction (Mild, Verified 04/19/24 09:44) stomach upset HPI HPI abd wall fluid collection, s/p appy: Details: She had a CAT scan done yesterday as ordered by her primary care physician and this showed a fluid collection on the abdominal wall underneath her incision. She was therefore referred to me. She denies any fever. She has good oral intake and denies any problems with the GI functions. She does have some drainage from 2 areas of the incision. 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 Mother Diabetes mellitus Daughter Diabetes mellitus Social History Household Members: Family Housing: House Do you presently have visiting nurse or other home services: No Alcohol intake: current Alcohol intake frequency: does not drink Comment: rings appropriately Patient Tobacco Use Status: Never used Tobacco Second Hand Smoke Exposure: No service: No Current occupational status: disabled Current occupation: right handed Female Reproductive History Menstrual Age of Menarche: 8 Review of Systems Const Denies chills and Denies fever(s) Card Denies chest pain, Denies dyspnea and Denies dyspnea on exertion Resp Denies cough, Denies dyspnea and Denies dyspnea on exertion GI Denies hematochezia and Denies change in bowel habits Denies hematuria Musc Denies back pain and Denies limited range of motion Neuro Denies focal weakness and Denies convulsions Psych Denies depression and Denies mood swings Physical Exam Const General: comfortable and no acute distress Resp Effort & Inspection: normal respiratory effort Cardio Rate: regular rate GI Other: Incision well healed with 2 areas that are open with some scanty drainage, no cellulitis, no fluctuance Palpation (GI): Soft to palpation, not firm and no guarding Assessment & Plan Assessment & Plan (1) S/P appendectomy: Code(s): Z90.49 - Acquired absence of other specified parts of digestive tract Category: Surgical Plan: She had a CT scan yesterday showing fluid collection underneath the incision. I probed the 2 areas that some scanty drainage using Q-tips. Some scanty fluid was drained from the probe I told her that this fluid collection is likely secondary to contamination of the area from the severely infected appendicitis at the time of the surgery. She does not require any surgical intervention at this time. I told her that I will see her next week in the office again. I anticipate that it may take a while for this to completely heal and I assured the patient and her family that she actually is doing overall this time. Coding Level of Care Code Global (78547) Diagnoses S/P appendectomy Z90.49
== END 2024-04-25 10:32 | disposition home or self-care (01) ==
LOC: HO.HGS 10:18
PROVIDERS: PCP Internal Medicine Geriatric Medicine; Visit Provider Surgery
DX: Z90.49 Acquired absence of other specified parts of digestive tract (principal)
CPT/HCPCS: 99024

== ENCOUNTER → 2024-04-25 10:18 | Outpatient (BNVA) | payer MEDICAID, SELFPAY | PROVIDERS: PCP Internal Medicine Geriatric Medicine; Visit Provider Surgery | DX: Z90.49 Acquired absence of other specified parts of digestive tract (principal) | CPT/HCPCS: 99212 ==

== ENCOUNTER 2024-05-03 10:37 | Outpatient (AMB) | payer MEDICAID, SELFPAY ==
--- NOTE | 2024-05-03 10:38 | A.OFFVIS_ITS ---
Vital Signs 05/03/24 10:45 Height 5 ft 2 in Weight 141 lb 1.533 oz BMI 25.8 BP 134/93 H Blood Pressure Location Rt brachial Position Sitting Pulse 70 Intake Visit Reasons: abd wall fluid collection, s/p appy Intake Note: This patient presents for a post-op follow-up assessment for wound check, abdominal wall seroma status post open appendectomy. Patient c/o; reports has E.coli infection, reports completed one round of abx, reports has an abscess. Hand Cultivator Required: Yes Hand Cultivator Language: Communications Systems Engineer Services: Hand Cultivator Present Hand Cultivator Name: Daniela Information Interpreted: non-clinical & clinical Accompanied by: Daughter Allergies metformin Adverse Reaction (Mild, Verified 05/03/24 10:47) stomach upset HPI HPI abd wall fluid collection, s/p appy: Details: She is here for her abdominal wall fluid collection after open appendectomy last Feb, 2024. She continues to feel well. The wound on the upper part of her incision actually has dried up and has healed She has had some drainage from open wound on the the lower part of the incision. She has good oral intake. She denies any fever or chills. She denies any significant pain. 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 Mother Diabetes mellitus Daughter Diabetes mellitus Social History Household Members: Family Housing: House Do you presently have visiting nurse or other home services: No Alcohol intake: current Alcohol intake frequency: does not drink Comment: rings appropriately Patient Tobacco Use Status: Never used Tobacco Second Hand Smoke Exposure: No service: No Current occupational status: disabled Current occupation: right handed Female Reproductive History Menstrual Age of Menarche: 8 Review of Systems Const Denies chills and Denies fever(s) Card Denies chest pain, Denies dyspnea and Denies dyspnea on exertion Resp Denies cough, Denies dyspnea and Denies dyspnea on exertion GI Denies hematochezia and Denies change in bowel habits Denies hematuria Musc Denies back pain and Denies limited range of motion Neuro Denies focal weakness and Denies convulsions Psych Denies depression and Denies mood swings Physical Exam Const General: comfortable and no acute distress Resp Effort & Inspection: normal respiratory effort GI Other: Open wound on the upper part of the incision is well healed; there is still an open wound on the lower part of the incision, about 1 cm in diameter with thick fibrinous debris Palpation (GI): Soft to palpation, not firm and nontender Assessment & Plan Assessment & Plan (1) S/P appendectomy: Code(s): Z90.49 - Acquired absence of other specified parts of digestive tract Category: Surgical Plan: The open wound on the upper part of the incision is now well healed. There is a small open wound on the lower part of the incision with thick fibrinous debris. I sharply debrided this with scissors. There was note of a loose stitch as well which I removed. This is likely causing hypergranulation tissue. I applied dry dressings. I anticipate this open wound to heal as well. I will see her in the office in about 2 weeks for another wound check. Was instructed on good wound care. She does not need oral antibiotics at this time. Coding Level of Care Code Global (69706) Diagnoses S/P appendectomy Z90.49
[2024-05-03 10:45] VITALS: BP 134/93; PULSE 70; BMI 25.8
== END 2024-05-03 10:55 | disposition home or self-care (01) ==
PROVIDERS: PCP Internal Medicine Geriatric Medicine; Visit Provider Surgery
DX: Z90.49 Acquired absence of other specified parts of digestive tract (principal)
CPT/HCPCS: 99024

== ENCOUNTER → 2024-05-03 10:37 | Outpatient (BNVA) | payer MEDICAID, SELFPAY | PROVIDERS: PCP Internal Medicine Geriatric Medicine; Visit Provider Surgery | DX: T81.31XA Disruption of external operation (surgical) wound, not elsewhere classified, initial encounter (principal); Z90.49 Acquired absence of other specified parts of digestive tract | CPT/HCPCS: 97597; 97602; 99212 ==

== ENCOUNTER 2024-05-24 11:12 | Outpatient (AMB) | payer MEDICAID, SELFPAY ==
[2024-05-24 11:13] VITALS: BP 127/70; PULSE 70; BMI 24.9
--- NOTE | 2024-05-24 11:13 | MHC.OFFVIS ---
Vital Signs 05/24/24 11:13 Height 5 ft 2 in Weight 136 lb 4 oz BMI 24.9 BP 127/70 Blood Pressure Location Rt brachial Position Sitting Pulse 70 Intake Visit Reasons: abd wall fluid collection, s/p appy Intake Note: This patient presents for a three week follow-up for wound check, status post open appendectomy. Pt c/o; reports no complaints. Endodontics Dentist Required: Yes Endodontics Dentist Language: Yi Accompanied by: Daughter Allergies metformin Adverse Reaction (Mild, Verified 05/24/24 11:19) stomach upset HPI HPI abd wall fluid collection, s/p appy: Details: She is here for follow-up for the open wound on her laparotomy site. This continues to heal. This has decreased in size significantly. She denies any problems with oral intake or movements. She does state that she had lost 10 lb after the laparotomy. 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 Mother Diabetes mellitus Daughter Diabetes mellitus Social History Household Members: Family Housing: House Do you presently have visiting nurse or other home services: No Alcohol intake: current Alcohol intake frequency: does not drink Comment: rings appropriately Patient Tobacco Use Status: Never used Tobacco Second Hand Smoke Exposure: No service: No Current occupational status: disabled Current occupation: right handed Female Reproductive History Menstrual Age of Menarche: 8 Review of Systems Const Denies chills and Denies fever(s) Physical Exam Vital Signs: Last Vital Signs Pulse 70 05/24/24 11:13 BP 127/70 08/07/24 11:13 BMI result Body Mass Index 24.9 Const Other: Looks well General: comfortable and no acute distress Resp Effort & Inspection: normal respiratory effort Cardio Rate: regular rate GI Other: Open wound on the laparotomy site now down to less than 1 cm, clean, no obvious discharge or pus Palpation (GI): Soft to palpation, not firm and nontender Assessment & Plan Assessment & Plan (1) S/P appendectomy: Code(s): Z90.49 - Acquired absence of other specified parts of digestive tract Category: Surgical Plan: The open wound on the laparotomy site has continued to heal well. This has contracted in size significantly She is to continue to do dry dressings. I told her that if she has any questions concerns down the line, she can come back to the office any time. Coding Level of Care Code Global (89535) Diagnoses S/P appendectomy Z90.49
== END 2024-05-24 11:22 | disposition home or self-care (01) ==
PROVIDERS: PCP Internal Medicine Geriatric Medicine; Visit Provider Surgery
DX: Z90.49 Acquired absence of other specified parts of digestive tract (principal)
CPT/HCPCS: 99024

== ENCOUNTER → 2024-05-24 11:12 | Outpatient (BNVA) | payer MEDICAID, SELFPAY | PROVIDERS: PCP Internal Medicine Geriatric Medicine; Visit Provider Surgery | DX: Z90.49 Acquired absence of other specified parts of digestive tract (principal) | CPT/HCPCS: 99212 ==

== ENCOUNTER 2024-06-12 10:02 | Outpatient (AMB) | payer MEDICAID, SELFPAY ==
--- NOTE | 2024-06-12 10:34 | A.OFFVIS_ITS ---
Intake Intake Visit Reasons: 30 min-conf It Security Engineer Required: Yes It Security Engineer Language: Classification Counselor Name: Nikko [id number] Allergies metformin Adverse Reaction (Mild, Verified 05/24/24 11:19) stomach upset HPI Comprehensive Diabetes Asmnt Most Recent Diabetes Results: Creatinine 0.73 mg/dL (0.5-1.4) 04/19/24 Blood Urea Nitrogen 19 mg/dL (9-16) H 04/19/24 Sodium 138 mmol/L (135-145) 04/19/24 Potassium 4.6 mmol/L (3.3-5.1) 04/19/24 Chloride 100 mmol/L (96-108) 04/19/24 Carbon Dioxide 32 mmol/L (22-29) H 04/19/24 Calcium 10.2 mg/dL (8.4-10.2) 04/19/24 [facility] Medical History Diabetic retinopathy associated with type 2 diabetes mellitus Diabetic 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 associated with type 2 diabetes mellitus 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 Mother Diabetes mellitus Daughter Diabetes mellitus Social History Household Members: Family Housing: House Do you presently have visiting nurse or other home services: No Alcohol intake: current Alcohol intake frequency: does not drink Comment: rings appropriately Patient Tobacco Use Status: Never used Tobacco Second Hand Smoke Exposure: No service: No Current occupational status: disabled Current occupation: right handed Female Reproductive History Menstrual Age of Menarche: 8 Assessment & Plan Assessment & Plan (1) Diabetic 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 associated with type 2 diabetes mellitus: Code(s): E11.42 - Type 2 diabetes mellitus with diabetic 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 Plan: Personal Continuous Glucose Monitor: Patients CGM information reviewed Reviewed patient's sensor data: Hypoglycemia: ? 0% Hyperglycemia:? 19% Time in Range:? 81% Average glucose for the last 2 weeks?150 mg/dL Patient recently had Trulicity increase to 3 mg weekly, since last visit patient's average glucose has improved from 181 mg/dL to 150 mg/dL Patient did have several postprandial hypoglycemic events Reviewed with patient how to treat hypoglycemia with rule of 15s Patient reports she uses fruit juice to treat low blood sugar Recommended to patient she reduce NovoLog to 6 units before lunch and supper, if she notices high glucose levels after meals she can increase the NovoLog to 7 units before meals Instructed patient to contact certified adapted physical educator provider if hypoglycemia persists Patient also ask for new prescription for freestyle glucometer, message sent to provider Reviewed how to interpret trend arrows Patient able to insert sensor independently at home without issue.? Portions of this note were created using voice recognition software, please excuse any words or phrases that may have been misinterpreted. Patient Instructions: Reducir Novolog a 6 unidades antes del almuerzo y la rug inspector helper. seguimiento con Educador en Diabetes en 3 meses Coding Level of Care Code Est Pt Level 1 (37169) Diagnoses Diabetic 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 associated with type 2 diabetes mellitus E11.42
== END 2024-06-12 10:35 | disposition home or self-care (01) ==
PROVIDERS: PCP Internal Medicine Geriatric Medicine; Visit Provider Registered Nurse Diabetes Educator
DX: E11.42 Type 2 diabetes mellitus with diabetic 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 (principal)

== ENCOUNTER → 2024-06-12 10:02 | Outpatient (BNVA) | payer MEDICAID, SELFPAY | PROVIDERS: PCP Internal Medicine Geriatric Medicine; Visit Provider Registered Nurse Diabetes Educator | DX: E11.42 Type 2 diabetes mellitus with diabetic 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 (principal) | CPT/HCPCS: 99211 ==

== ENCOUNTER 2024-06-14 07:55 | Outpatient (REF) | payer MEDICAID, SELFPAY ==
[2024-06-14 08:13] LABS: MANUAL DIFF FLAG NO
[2024-06-14 08:43] LABS: Basophils Absolute Auto 0.1 X10*3/uL (0.0-0.2); Basophils Percent Auto 1.4 % (0-2); Eosinophils Absolute Auto 0.5 X10*3/uL (0.0-0.4); Eosinophils Percent Auto 14.5 % (0-4); Hematocrit 42.2 % (37.0-47.0); Hemoglobin 13.9 g/dl (12.0-16.0); Lymphocytes Absolute Auto 1.2 X10*3/uL (1.2-4.9); Lymphocytes Percent Auto 32.9 % (20-40); Mean Corpuscular HGB Conc 32.9 g/dl (31.0-35.0); Mean Corpuscular Hemoglobin 27.8 pg (27.0-33.0); Mean Corpuscular Volume 84.4 fL (80.0-98.0); Mean Platelet Volume 9.3 fL (9.4-12.3); Monocytes Absolute Auto 0.3 X10*3/uL (0.1-1.2); Monocytes Percent Auto 9.2 % (2-11); Neutrophils Absolute Auto 1.5 x10*3/uL (2.0-8.3); Platelet Count 258 X10*3/uL (160-400); Red Cell Distribution Width 13.2 % (11.0-16.0); White Blood Count 3.6 X10*3/uL (4.8-10.8)
[2024-06-14 09:13] LABS: Anion Gap 12 (12-20); Blood Urea Nitrogen 16 mg/dL (9-16); Carbon Dioxide 33 mmol/L (22-29); Chloride 102 mmol/L (96-108); Estimated Glomerular Filt Rate > 60; Glucose Random 149 mg/dL (60-115); Magnesium 2.3 mg/dL (1.6-2.6); Phosphorus 4.7 mg/dL (2.7-4.5); Potassium 4.5 mmol/L (3.3-5.1); Sodium 142 mmol/L (135-145)
[2024-06-14 09:31] LABS: Thyroid Stimulating Hormone 1.49 uIU/mL (0.32-4.0)
== END 2024-06-14 07:56 | disposition home or self-care (01) ==
LOC: HO.LAB 07:55
PROVIDERS: PCP Internal Medicine Geriatric Medicine; Visit Provider Internal Medicine Cardiovascular Disease
DX: R07.9 Chest pain, unspecified (principal)
CPT/HCPCS: 36415; 80048; 83735; 84100; 84443; 85025

== ENCOUNTER 2024-06-26 16:16 | Emergency (ER) | payer MEDICAID, SELFPAY ==
--- NOTE | ~2024-06-26 | XR_ITS ---
EXAMINATION: XR CHEST CLINICAL INFORMATION: Chest pain COMPARISON: Chest x-ray September 06, 2019 TECHNIQUE: Frontal view of the chest was obtained. 8:23 PM FINDINGS: No significant abnormality is noted involving the heart, lungs, mediastinum, bony thorax or soft tissues. XR/XR chest 1V IMPRESSION: Unremarkable examination. Electronically signed by: Haim Putnam MD 06/26/2024 09:24 PM EDT RP
--- NOTE | 2024-06-26 16:30 | ECG_ITS ---
Test Reason : chest pain Blood Pressure : / mmHG Vent. Rate : 080 BPM Atrial Rate : 080 BPM P-R Int : 132 ms QRS Dur : 076 ms QT Int : 410 ms P-R-T Axes : 062 009 036 degrees QTc Int : 472 ms Normal sinus rhythm Possible Left atrial enlargement Borderline ECG When compared with ECG of 27-FEB-2024 15:28, Heart rate has decreased Referred By: Generic ED Physician Electronically Signed By:RUDDY BORJAS
[2024-06-26 16:40] VITALS: BP 118/61; BP 131/76; PULSE 84; PULSE 88; RESP 18; TEMP 36.6; O2SAT 94; O2SAT 96; BMI 26.0
--- NOTE | 2024-06-26 17:18 | ED.CHESTPAIN ---
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 Barcenas HPI narrative: 59-year-old female came in for evaluation of chest pain x2 days. Patient describes chest pain to the left side of chest wall that radiates to the left arm and left neck, pain started 2 days ago that has been intermittent, no clear aggravating or relieving factor, no chest wall tenderness, no trauma or injury to the chest wall. When patient was asked to raise her left arm above her head started to have left-sided chest pain and left-sided neck pain. Patient been having shortness of breath with the chest pain also. Related Data Home Medications ?Medication ?Instructions ?Recorded ?Confirmed aspirin 81 mg tablet,delayed 81 mg PO DAILY 07/20/20 04/19/24 release (Adult Low Dose Aspirin) metformin 500 mg tablet See Rx Instructions PO DAILY 07/20/20 04/19/24 hydrochlorothiazide 12.5 mg tablet 12.5 mg PO DAILY 01/07/22 04/19/24 amlodipine 5 mg tablet 5 mg PO DAILY 03/03/22 04/19/24 enalapril maleate 20 mg tablet 20 mg PO BEDTIME 03/03/22 04/19/24 hydroxychloroquine 200 mg tablet 200 mg PO BID 09/09/22 04/19/24 ibuprofen 800 mg tablet 800 mg PO TID PRN pain 09/09/22 04/19/24 mirabegron 25 mg tablet,extended 25 mg PO DAILY 09/09/22 04/19/24 release 24 hr (Myrbetriq) sertraline 100 mg tablet 100 mg PO QAM 09/09/22 04/19/24 trazodone 100 mg tablet 100 mg PO BEDTIME PRN insomnia 09/09/22 04/19/24 acetaminophen 500 mg tablet 500 mg PO Q6H PRN pain 11/17/22 04/19/24 montelukast 10 mg tablet 10 mg PO BEDTIME 03/10/23 04/19/24 cholecalciferol (vitamin D3) 25 50 mcg PO DAILY 02/28/24 04/19/24 mcg (1,000 unit) capsule (Vitamin D3) omeprazole 20 mg capsule,delayed 20 mg PO DAILY 02/28/24 04/19/24 release pioglitazone 30 mg tablet 30 mg PO DAILY 02/28/24 04/19/24 Previous Rx's ?Medication ?Instructions ?Recorded levothyroxine 88 mcg tablet 88 mcg PO DAILY 90 days #90 tabs 04/07/21 insulin aspart U-100 100 unit/mL See Rx Instructions subcut TID 30 01/12/22 (3 mL) subcutaneous pen days #15 mL dicyclomine 20 mg tablet 20 mg PO .TIDAC 30 days #90 tabs 03/10/23 sennosides 8.6 mg tablet (senna) 17.2 mg (2 x 8.6 mg) PO BEDTIME 03/10/23 for constipation #60 tabs pravastatin 20 mg tablet 20 mg PO BEDTIME #30 tabs 08/16/23 gabapentin 300 mg capsule 300 mg PO BEDTIME #30 caps 10/26/23 amoxicillin 875 mg-potassium 1 tab PO BID #14 tabs 03/02/24 clavulanate 125 mg tablet docusate sodium 100 mg capsule 100 mg PO BID PRN constipation #30 03/02/24 (Colace) caps oxycodone 5 mg tablet 5 mg PO Q4H PRN pain (scale score 03/02/24 7-10) #24 tabs ondansetron 4 mg disintegrating 4 mg PO Q6-8H PRN nausea and 03/04/24 tablet vomiting #7 tabs empagliflozin 25 mg tablet 25 mg PO QAM #30 tabs 03/16/24 (Jardiance) dulaglutide 3 mg/0.5 mL 3 mg (0.5 mL) subcut QWEEK #6 mL 04/19/24 subcutaneous pen injector (Trulicity) pen needle, diabetic 32 gauge x #100 ea 06/01/24 (BD Ultra-Fine Sandy Pen Needle) FreeStyle Lancets 28 gauge #400 ea 06/12/24 (lancets) FreeStyle Lite Meter #1 ea 06/12/24 (blood-glucose meter) FreeStyle Lite Strips (blood sugar #400 ea 06/12/24 diagnostic) flash glucose scanning reader #1 ea 06/12/24 (FreeStyle Rama 2 [place]) flash glucose sensor (FreeStyle #6 ea 06/12/24 Rama 2 Sensor kit) insulin glargine U-300 conc 300 36 unit (0.12 mL) subcut BEDTIME 06/25/24 unit/mL (3 mL) subcutaneous pen #6 mL (Toujeo Max U-300 SoloStar) ibuprofen 600 mg tablet 600 mg PO Q8H PRN pain #14 tabs 06/26/24 oxycodone 5 mg tablet 5 mg PO Q8H PRN pain #5 tabs 06/26/24 Allergies Allergy/AdvReac Type Severity Reaction Status Date / Time metformin AdvReac Mild stomach Verified 06/26/24 16:46 upset Review of Systems Review of Systems: All other systems are reviewed and are negative Constitutional: Reports as per HPI and Reports no additional constitutional complaints Eyes: Reports as per HPI and Reports no additional eye complaints Reports system reviewed and no additional complaints, except as documented Cardiovascular: Reports as per HPI and Reports no additional cardiovascular complaints Respiratory: Reports as per HPI and Reports no additional respiratory complaints Gastrointestinal: Reports as per HPI and Reports no additional gastrointestinal complaints Genitourinary: Reports no additional female genitourinary complaints Musculoskeletal: Reports no additional musculoskeletal complaints Skin/Breast: Reports system reviewed and no additional complaints, except as docu Psychiatric: Reports no additional psychiatric complaints Endocrine: Reports no additional endocrine complaints Hematologic/Lymphatic: Reports no additional hematologic/lymphatic complaints Allergic/Immunologic: Reports no additional allergic/immunologic complaints Reports system reviewed and no additional complaints, except as documented and Reports Abnormal speech present [facility] Past Medical History Medical History Diabetic retinopathy associated with type 2 diabetes mellitus Diabetic 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 associated with type 2 diabetes mellitus 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 Mother Diabetes mellitus Daughter Diabetes mellitus Social History Social History Household Members: Family Housing: House Do you presently have visiting nurse or other home services: No Alcohol intake: current Alcohol intake frequency: does not drink Comment: rings appropriately Patient Tobacco Use Status: Never used Tobacco Smoked in Last 30 Days: No Second Hand Smoke Exposure: No Use of substances other than those prescribed or required for medical reasons: No Advance Directives: No Advance Directives Information Provided: No service: No Current occupational status: disabled Current occupation: right handed Physical Exam Vital Signs: Vital Signs: Last Vital Signs Temp 97.8 F 06/26/24 16:40 Pulse 84 06/26/24 16:40 Resp 18 06/26/24 16:40 BP 118/61 06/26/24 16:40 Pulse Ox 94 06/26/24 16:40 O2 Del Method Room Air 06/26/24 16:40 BMI result Body Mass Index 26.0 Vital signs have been reviewed and appear to be correct. Blood pressure elevated. Heart rate normal. Respiratory rate normal. Temperature normal. Oxygen saturation normal. Appearance: Alert. Oriented X3. No acute distress. Head: Normal external exam. Normocephalic. Atraumatic. No Kirk signs noted. No raccoon eyes noted Eyes: PERRLA. EOMI. Conjunctiva and sclera normal. Eyelids normal. ENT: TM's Normal. Pharynx normal. Uvula midline. Moist mucous membranes. No trismus noted. No drooling noted. No muffled voice noted. Neck: Normal inspection. Neck supple. FROM. No adenopathy. Thyroid Normal. No meningeal signs. No neck mass noted. CVS: Normal heart rate and rhythm. Heart sound normal. No murmurs noted. Pulses normal throughout. Respiratory: No respiratory distress. Painless inspiration. Breath sounds normal. No wheezes/rales/rhonchi noted. Chest nontender. No accessory muscle usage noted or decreased air movement noted. Abdomen: Soft and nontender. Bowel sounds normal in all 4 quadrants. No distention noted. No organomegaly noted. No visible injury noted. Back: No CVA tenderness. Full range of motion noted. Skin: Skin warm and dry. Normal skin color. Normal skin turgor. No rashes/lesions/lacerations noted. Extremities: Increased left-sided chest pain when raising left arm above the head. Neuro: Oriented X 3. Cranial nerve exam: II-XII are grossly intact No motor deficit. No sensory deficit. Reflexes normal. Course Reevaluation(s) Reevaluation #1: chest pain radiates to the neck and left shoulder, physical exam is consistent with left cervical radiculopathy that radiating the pain to left chest and left arm, patient has unremarkable cardiac workup today, no pulmonary embolism. Rest, heating pad to the neck, NSAIDs p.r.n. pain, follow-up with PCP patient might need outpatient MRI. Time: 21:00 Medical Decision Making Differential Diagnosis Differential Diagnoses: The differential diagnosis associated with the presentation includes (ACS, pulmonary embolism, pneumonia, pleural effusion, pneumothorax, cervical radiculopathy, electrolyte derangement, severe anemia.) Admission/Observation Consideration of admission/observation: Escalation of care including admission/observation considered Lab Data MDM Lab Attestation statement: I reviewed the patient's lab results. 06/26/24 17:45 06/26/24 17:45 Labs: Lab Results 06/26/24 Range/Units 17:45 WBC 5.5 (4.8-10.8) X10*3/uL RBC 4.64 (4.20-5.50) X10*6/uL Hgb 12.9 (12.0-16.0) g/dl Hct 39.4 (37.0-47.0) % MCV 84.9 (80.0-98.0) fL MCH 27.8 (27.0-33.0) pg MCHC 32.7 (31.0-35.0) g/dl RDW 13.2 (11.0-16.0) % Plt Count 223 (160-400) X10*3/uL MPV 9.4 (9.4-12.3) fL Immature Gran % (Auto) 0.9 H (0.0-0.4) % Neut % (Auto) 52.8 (45-73) % Lymph % (Auto) 28.9 (20-40) % [place] % (Auto) 7.5 (2-11) % Eos % (Auto) 8.8 H (0-4) % Baso % (Auto) 1.1 (0-2) % Lymph # (Auto) 1.6 (1.2-4.9) X10*3/uL [place] # (Auto) 0.4 (0.1-1.2) X10*3/uL Eos # (Auto) 0.5 H (0.0-0.4) X10*3/uL Baso # (Auto) 0.1 (0.0-0.2) X10*3/uL Abs Immat Gran (auto) 0.05 H (0.00-0.03) X10*3/uL Absolute Neuts (auto) 2.9 (2.0-8.3) x10*3/uL Absolute Nucleated RBC 0.000 (0.0-0.012) X10*3/uL Nucleated RBC % (auto) 0.0 (0.0-0.2) /100WBC D-Dimer High Sensitivty 210 NG/ML Sodium 144 (135-145) mmol/L Potassium 4.3 (3.3-5.1) mmol/L Chloride 105 (96-108) mmol/L Carbon Dioxide 30 H (22-29) mmol/L Anion Gap 13 (12-20) BUN 15 (9-16) mg/dL Creatinine 0.71 (0.5-1.4) mg/dL Estim Creat Clear Calc 74.2 Estimated GFR > 60 Random Glucose 87 (60-115) mg/dL Calcium 9.6 (8.4-10.2) mg/dL Total Bilirubin 0.3 (0.0-1.0) mg/dL AST 25 (5-31) U/L ALT 18 (0-31) U/L Alkaline Phosphatase 72 (39-117) U/L Troponin I High Sens 3.1 (<3.5-17.0) ng/L Total Protein 7.4 (6.5-8.0) g/dL Albumin 4.1 (3.5-5.0) g/dL Independent Interpretation I performed an independent interpretation of an: EKG (Normal sinus rhythm at 80 beats per minutes, normal intervals, no ST-T changes, no significant change from previous EKG.) and Plain X-Ray Discharge Plan Discharge Clinical Impression: Cervical radiculopathy Patient Disposition: Home, Self-Care Instructions: Cervical Radiculopathy (ED) Prescriptions: New ibuprofen 600 mg tablet 600 mg PO Q8H PRN (Reason: pain) Qty: 14 0RF oxycodone 5 mg tablet 5 mg PO Q8H PRN (Reason: pain) Qty: 5 0RF Rx Instructions: Partial Fill upon patient request. No Action levothyroxine 88 mcg tablet 88 mcg PO DAILY 90 Days Qty: 90 1RF Rx Instructions: Dose increased insulin aspart U-100 100 unit/mL (3 mL) insulin pen See Rx Instructions subcut TID 30 Days Qty: 15 6RF Rx Instructions: 4 units small meals, 8 medium meals and 10 units large meals, + 2 units for bg over 200 subcut 3 times a day; subcut 3 times a day; pravastatin 20 mg tablet 20 mg PO BEDTIME Qty: 30 6RF gabapentin 300 mg capsule 300 mg PO BEDTIME Qty: 30 11RF Jardiance 25 mg tablet 25 mg PO QAM Qty: 30 4RF (DME) pen needle, diabetic [BD Ultra-Fine Sandy Pen Needle] 32 gauge x 5/32 needle See Rx Instructions .ROUTE .COMPLEX Qty: 100 6RF Dose Instruction: USE DIRECTED FOUR TIMES DAILY Rx Instructions: USE DIRECTED FOUR TIMES DAILY (DME) FreeStyle Rama 2 [place] Misc See Rx Instructions .ROUTE .MEDSUPPLY Qty: 1 0RF Rx Instructions: As directed (DME) FreeStyle Rama 2 Sensor Kit See Rx Instructions .ROUTE .MEDSUPPLY Qty: 6 3RF Rx Instructions: As directed change every 2 weeks (DME) FreeStyle Lite Strips Strip See Rx Instructions .ROUTE .COMPLEX Qty: 400 3RF Dose Instruction: TEST BLOOD SUGAR FOUR TIMES DAILY Rx Instructions: TEST BLOOD SUGAR FOUR TIMES DAILY (DME) blood-glucose meter [FreeStyle Lite Meter] Kit See Rx Instructions .Route Qty: 1 3RF Rx Instructions: As directed (DME) lancets [FreeStyle Lancets] 28 gauge misc See Rx Instructions .Route Qty: 400 3RF Rx Instructions: four times daily insulin glargine U-300 conc [Toujeo Max U-300 SoloStar] 300 unit/mL (3 mL) insulin pen 36 unit subcut BEDTIME Qty: 6 3RF ondansetron 4 mg tablet,disintegrating 4 mg PO Q6-8H PRN (Reason: nausea and vomiting) Qty: 7 0RF omeprazole 20 mg capsule,delayed release(DR/EC) 20 mg PO DAILY pioglitazone 30 mg tablet 30 mg PO DAILY cholecalciferol (vitamin D3) [Vitamin D3] 25 mcg (1,000 unit) capsule 50 mcg PO DAILY docusate sodium [Colace] 100 mg capsule 100 mg PO BID PRN (Reason: constipation) Qty: 30 0RF amoxicillin-pot clavulanate 875-125 mg tablet 1 tab PO BID Qty: 14 0RF oxycodone 5 mg tablet 5 mg PO Q4H PRN (Reason: pain (scale score 7-10)) Qty: 24 0RF Rx Instructions: Partial Fill upon patient request. aspirin [Adult Low Dose Aspirin] 81 mg tablet,delayed release (DR/EC) 81 mg PO DAILY metformin 500 mg tablet See Rx Instructions PO DAILY Rx Instructions: 1/2 tablet PO daily; hydrochlorothiazide 12.5 mg tablet 12.5 mg PO DAILY hydroxychloroquine 200 mg tablet 200 mg PO BID Myrbetriq 25 mg tablet extended release 24 hr 25 mg PO DAILY trazodone 100 mg tablet 100 mg PO BEDTIME PRN (Reason: insomnia) sertraline 100 mg tablet 100 mg PO QAM ibuprofen 800 mg tablet 800 mg PO TID PRN (Reason: pain) montelukast 10 mg tablet 10 mg PO BEDTIME dicyclomine 20 mg tablet 20 mg PO .TIDAC 30 Days Qty: 90 6RF sennosides [senna] 8.6 mg tablet 17.2 mg PO BEDTIME Qty: 60 4RF amlodipine 5 mg tablet 5 mg PO DAILY enalapril maleate 20 mg tablet 20 mg PO BEDTIME acetaminophen 500 mg tablet 500 mg PO Q6H PRN (Reason: pain) Trulicity 3 mg/0.5 mL pen injector 3 mg subcut QWEEK Qty: 6 3RF Referrals: Name,MD Roel [Primary Care Provider] - Print Language: Tajik
--- NOTE | 2024-06-26 17:34 | PC.NURSE ---
Patient has some left neck and left arm pain that is constant in nature. 12/25 . left chest pozo that does not radiate anywhere and is intermittent in nature.
[2024-06-26 17:52] LABS: MANUAL DIFF FLAG NO
[2024-06-26 18:07] LABS: Alanine Aminotransferase 18 U/L (0-31); Albumin Level 4.1 g/dL (3.5-5.0); Alkaline Phosphatase 72 U/L (39-117); Anion Gap 13 (12-20); Aspartate Amino Transferase 25 U/L (5-31); Bilirubin Total 0.3 mg/dL (0.0-1.0); Blood Urea Nitrogen 15 mg/dL (9-16); Calcium 9.6 mg/dL (8.4-10.2); Carbon Dioxide 30 mmol/L (22-29); Chloride 105 mmol/L (96-108); Creatinine Clr Calc Pharmacy 74.2; Estimated Glomerular Filt Rate > 60; Glucose Random 87 mg/dL (60-115); Potassium 4.3 mmol/L (3.3-5.1); Sodium 144 mmol/L (135-145); Total Protein 7.4 g/dL (6.5-8.0)
[2024-06-26 18:15] LABS: Basophils Absolute Auto 0.1 X10*3/uL (0.0-0.2); Basophils Percent Auto 1.1 % (0-2); Eosinophils Absolute Auto 0.5 X10*3/uL (0.0-0.4); Eosinophils Percent Auto 8.8 % (0-4); Hematocrit 39.4 % (37.0-47.0); Hemoglobin 12.9 g/dl (12.0-16.0); Imm Gran Abs Auto 0.05 X10*3/uL (0.00-0.03); Imm Gran Pct Auto 0.9 % (0.0-0.4); Lymphocytes Absolute Auto 1.6 X10*3/uL (1.2-4.9); Lymphocytes Percent Auto 28.9 % (20-40); Mean Corpuscular HGB Conc 32.7 g/dl (31.0-35.0); Mean Corpuscular Hemoglobin 27.8 pg (27.0-33.0); Mean Corpuscular Volume 84.9 fL (80.0-98.0); Mean Platelet Volume 9.4 fL (9.4-12.3); Monocytes Absolute Auto 0.4 X10*3/uL (0.1-1.2); Monocytes Percent Auto 7.5 % (2-11); Neutrophils Absolute Auto 2.9 x10*3/uL (2.0-8.3); Neutrophils Percent Auto 52.8 % (45-73); Platelet Count 223 X10*3/uL (160-400); Red Blood Count 4.64 X10*6/uL (4.20-5.50); Red Cell Distribution Width 13.2 % (11.0-16.0); White Blood Count 5.5 X10*3/uL (4.8-10.8)
[2024-06-26 18:16] LABS: Troponin-I High Sensitivity 3.1 ng/L (<3.5-17.0)
[2024-06-26 18:29] LABS: D Dimer High Sensitivity 210 NG/ML
[2024-06-26 20:49] VITALS: BP 113/63; PULSE 81; RESP 16; TEMP 36.6; O2SAT 97
[2024-06-26 21:03] LABS: Troponin-I High Sensitivity < 2.7 ng/L (<3.5-17.0)
[2024-06-26 21:17] VITALS: BP 113/63; PULSE 81; RESP 16; TEMP 36.6; O2SAT 97
== END 2024-06-26 21:21 | disposition home or self-care (01) ==
PROVIDERS: Emergency Provider Emergency Medicine; PCP Internal Medicine Geriatric Medicine
DX: M54.12 Radiculopathy, cervical region (principal); R07.89 Other chest pain; M54.2 Cervicalgia; M79.602 Pain in left arm; Z79.899 Other long term (current) drug therapy
CPT/HCPCS: 36415; 71045; 80053; 84484; 85025; 85379; 93005; 99283; 99284

== ENCOUNTER 2024-07-20 13:28 | Outpatient (AMB) | payer MEDICAID, SELFPAY ==
--- NOTE | 2024-07-20 13:29 | MHC.OFFVIS ---
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 Past Medical History includes: hypertensio n, HLD arthritis, depression, uninodular goiter s/p thyroidectomy with papillary microcarcinoma), gastroparesis Current diabetes medications include: Metformin 250mg daily (intolerant higher doses), Jardiance 25 mg, Actos 30mg, Truilcity 3mg (increased from 1.5mg daily), Toujeo 36 units, and Humalog will be 4 small meals, 8 units for medium meals and 12 units for a large meal = 2 units if BG>200 TIDcc Micro and Macro Vascular Complications: neuropathy, +alb/cr, retinopathy, gastroparesis Blood Glucose Monitoring: Rama download GMI of 6.8% (down from )7.6. POC A1C 7.3%. 0% hypoglycemia per meter but has a few readings over the past two weeks in the 50s-60s, variable timed. Eye Exam-February 2024undergoing VEGF treatment for retinopathy No podiatry. +mild neuropathy well managed on gabapentin On levothyroxine 88 ug QD for post-surgical hypothyroidism for papillary microcarcinoma ROS CONSTITUTIONAL: Denies weight loss, fever and chills. HEENT: Denies changes in vision and hearing. RESPIRATORY: Denies SOB and cough. CV: Denies palpitations and CP GI: Denies abdominal pain, nausea, vomiting and diarrhea. : Denies dysuria and urinary frequency. MSK: Denies new myalgia and joint pain. SKIN: Denies rash and pruritus. NEUROLOGICAL: Denies headache PSYCHIATRIC: Denies recent changes in mood. PHYSICAL EXAM: GENERAL: Alert and oriented x 3. NAD EYES: EOMI. Anicteric. HENT: Moist mucous membranes. No scleral icterus. No cervical lymphadenopathy. LUNGS: Clear to auscultation bilaterally. CARDIOVASCULAR: Regular rate and rhythm. No murmur. No JVD. ABDOMEN: Soft, non-tender +bs EXTREMITIES: No edema. Non-tender. Visual exam of foot performed. No ulcerations or open lesions. +DP pulses. Sensation intact to monofilament exam. Nml vibratory sense SKIN: No rashes or lesions. Warm. NEUROLOGIC: No focal neurological deficits. CN II-XII grossly intact PSYCHIATRIC: Cooperative. Appropriate mood and affect [facility] Medical History Diabetic retinopathy associated with type 2 diabetes mellitus Diabetic 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 associated with type 2 diabetes mellitus nursing home (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 of 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 Mother Diabetes mellitus Daughter Diabetes mellitus Social History Household Members: Family Housing: House Do you presently have visiting nurse or other home services: No Alcohol intake: current Alcohol intake frequency: does not drink Comment: rings appropriately Patient Tobacco Use Status: Never used Tobacco Second Hand Smoke Exposure: No service: No Current occupational status: disabled Current occupation: right handed Female Reproductive History Menstrual Age of Menarche: 8 Physical Exam Vital Signs: Last Vital Signs Pulse 85 07/20/24 13:34 BP 130/80 07/20/24 13:34 BMI result Body Mass Index 26.2 Results AMB Hemoglobin A1c AMB Hemoglobin A1c 7.3 % Last Edit by RAJEEV Fernández on 07/20/24 13:47 Results Reviewed Results Reviewed: Laboratory Last Values Glucose (Clinic) 130 mg/dL (60-115) H 07/20/24 13:37 Assessment & Plan Assessment & Plan (1) Diabetic 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 associated with type 2 diabetes mellitus: Code(s): E11.42 - Type 2 diabetes mellitus with diabetic 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 Category: Medical Plan: Appetite decrease with trulicity to 3mg which could be cause of hypoglycemia. Will for now decrease her toujeo to 30 units. continue all other medications at the same dose. If she starts eating more again, is seeing too high of numbers she will call the office. Otherwise plan to follow up in 3 months Orders: Orders AMB Hemoglobin A1c Today E11.65 - Type 2 diabetes mellitus with hyperglycemia, Z79.4 - nursing home (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 of insulin Medications: Changed From insulin glargine U-300 conc (Toujeo Max U-300 SoloStar) 36 units (0.12 mL) subcut BEDTIME 6 mL 3RF E11.40 - Type 2 diabetes mellitus with diabetic neuropathy, unspecified To insulin glargine U-300 conc (Toujeo Max U-300 SoloStar) 30 units (0.1 mL) subcut BEDTIME 6 mL 3RF E11.40 - Type 2 diabetes mellitus with diabetic neuropathy, unspecified Coding Level of Care Code Est Pt Level 4 (33820) Diagnoses Diabetic 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 associated with type 2 diabetes mellitus E11.42
[2024-07-20 13:34] VITALS: BP 130/80; PULSE 85; BMI 26.2
[2024-07-20 13:41] LABS: Glucose, Whole Blood 130 mg/dL (60-115)
== END 2024-07-20 13:52 | disposition home or self-care (01) ==
PROVIDERS: PCP Internal Medicine Geriatric Medicine; Referring Provider Internal Medicine Geriatric Medicine; Visit Provider Internal Medicine
DX: E11.65 Type 2 diabetes mellitus with hyperglycemia (principal); Z79.4 Long term (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 of insulin; E11.42 Type 2 diabetes mellitus with diabetic 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

== ENCOUNTER → 2024-07-20 13:28 | Outpatient (BNVA) | payer MEDICAID, SELFPAY | PROVIDERS: PCP Internal Medicine Geriatric Medicine; Visit Provider Internal Medicine | DX: E11.42 Type 2 diabetes mellitus with diabetic 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 (principal) | CPT/HCPCS: 82947; 83036; 99212 ==

== ENCOUNTER 2024-08-08 10:40 | Outpatient (REF) | payer MEDICAID, SELFPAY ==
--- NOTE | ~2024-08-08 | XR_ITS ---
EXAMINATION: XR SHOULDER, LEFT CLINICAL INFORMATION: Left shoulder pain. COMPARISON: None available. TECHNIQUE: AP and scapular Y views of the left shoulder. FINDINGS: No acute fracture or dislocation. Mild acromioclavicular osteoarthritis with tiny subacromial spurs. No glenohumeral joint space narrowing or marginal osteophytes. No osseous erosion. XR/XR shoulder LT min 2V IMPRESSION: Mild acromioclavicular osteoarthritis with tiny subacromial spurs. Electronically signed by: Aleks Muller MD 09/08/2024 01:19 PM EST
== END 2024-08-08 10:41 | disposition home or self-care (01) ==
LOC: HO.HOSX 10:40
PROVIDERS: Visit Provider Orthopaedic Surgery
DX: M75.42 Impingement syndrome of left shoulder (principal)
CPT/HCPCS: 73030; 99202

== ENCOUNTER 2024-08-08 11:53 | Outpatient (AMB) | payer MEDICAID, SELFPAY ==
--- NOTE | 2024-08-08 11:59 | MHC.OFFVIS ---
Intake Visit Reasons: Left shoulder pain and weakness Intake Note: Lolly is a 59 year old female who presents with complaints of progressively worsening left shoulder pain and weakness. She describes her pain as sharp and severe in nature. She did injure her left shoulder approximately 1 year ago while lifting a heavy object. Since that time she has had difficulty lifting her left hand above shoulder height. She has failed the last 6 weeks of conservative treatment which has included physical therapy exercises, Tylenol and anti-inflammatory medicines. She denies any numbness or tingling in either upper extremity. She has had injections in the past which gave her minimal relief. Director Workforce Management Required: Yes Director Workforce Management Language: Combination Welder Apprentice Name: Ryan [id number] Allergies metformin Adverse Reaction (Mild, Verified 08/08/24 12:03) stomach upset Medication List - Last Reconciled 08/08/24 by Freedom Huggins MD acetaminophen 500 mg PO Q6H PRN amlodipine 5 mg PO DAILY amoxicillin-pot clavulanate 875-125 mg 1 tab PO BID aspirin (Adult Low Dose Aspirin) 81 mg PO DAILY cholecalciferol (vitamin D3) (Vitamin D3) 50 mcg PO DAILY dicyclomine 20 mg PO .TIDAC 30 days docusate sodium (Colace) 100 mg PO BID PRN dulaglutide (Trulicity) 3 mg (0.5 mL) subcut QWEEK empagliflozin (Jardiance) 25 mg PO QAM enalapril maleate 20 mg PO BEDTIME flash glucose scanning reader (FreeStyle Rama 2 [place]) As directed flash glucose sensor (FreeStyle Rama 2 Sensor kit) As directed change every 2 weeks FreeStyle Lancets (lancets) four times daily NS FreeStyle Lite Meter (blood-glucose meter) As directed NS FreeStyle Lite Strips (blood sugar diagnostic) TEST BLOOD SUGAR FOUR TIMES DAILY NS gabapentin 300 mg PO BEDTIME hydrochlorothiazide 12.5 mg PO DAILY hydroxychloroquine 200 mg PO BID ibuprofen 600 mg PO Q8H PRN ibuprofen 800 mg PO TID PRN insulin aspart U-100 4 units small meals, 8 medium meals and 10 units large meals, + 2 units for bg over 200 subcut 3 times a day; subcut 3 times a day; 30 days insulin glargine U-300 conc (Toujeo Max U-300 SoloStar) 30 units (0.1 mL) subcut BEDTIME levothyroxine 88 mcg PO DAILY 90 days metformin 1/2 tablet PO daily; mirabegron ER (Myrbetriq) 25 mg PO DAILY montelukast 10 mg PO BEDTIME omeprazole 20 mg PO DAILY ondansetron 4 mg PO Q6-8H PRN oxycodone 5 mg PO Q4H PRN oxycodone 5 mg PO Q8H PRN pen needle, diabetic (BD Ultra-Fine Sandy Pen Needle) USE DIRECTED FOUR TIMES DAILY pioglitazone 30 mg PO DAILY pravastatin 20 mg PO BEDTIME sennosides (senna) 17.2 mg (2 x 8.6 mg) PO BEDTIME sertraline 100 mg PO QAM trazodone 100 mg PO BEDTIME PRN PFSH Medical History Diabetic retinopathy associated with type 2 diabetes mellitus Diabetic 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 associated with type 2 diabetes mellitus 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 Mother Diabetes mellitus Daughter Diabetes mellitus Social History Household Members: Family Housing: House Do you presently have visiting nurse or other home services: No Alcohol intake: current Alcohol intake frequency: does not drink Comment: rings appropriately Patient Tobacco Use Status: Never used Tobacco Second Hand Smoke Exposure: No service: No Current occupational status: disabled Current occupation: right handed Female Reproductive History Menstrual Age of Menarche: 8 Physical Exam Const Other: Well-nourished well-developed very friendly female awake alert and oriented x3 in no acute distress Extrem Other: Bilateral upper extremity examination shows good capillary refill, no skin lesions noted, normal sensation light touch Left shoulder examination shows decreased range of motion when compared to her right shoulder, 4+ out of 5 strength with supraspinatus testing, positive impingement signs, tenderness over her acromioclavicular joint, no instability Results Reviewed Results Reviewed: X-rays of the patient's left shoulder show severe acromioclavicular joint narrowing, a type 2 acromion, no acute bony abnormalities Assessment & Plan Assessment & Plan (1) Left shoulder pain: Code(s): M25.512 - Pain in left shoulder Category: Medical Plan Lolly presents with progressively worsening left shoulder pain and weakness due to impingement syndrome and possible full-thickness rotator cuff tearing. I will send the patient for an MRI of her left shoulder for further evaluation. I will see her back once the MRI is completed to discuss the findings and treatment options. She will continue with her [id number] exercises in the meantime. Feel free to call me at any time should questions regarding her orthopedic management arise. Thank you very much for asking me to see this very friendly patient. I spent 20 minutes in reviewing the patient's records and imaging studies, seeing the patient and documenting in the medical record. Orders: Orders XR shoulder LT min 2V 08/08/24 M25.512 - Pain in left shoulder MR shoulder LT wo con 08/08/24 M25.512 - Pain in left shoulder Coding Level of Care Code New Pt Level 3 (89144) Complex EM visit Add On G2211 Diagnoses Left shoulder pain M25.512
== END 2024-08-08 12:19 | disposition home or self-care (01) ==
LOC: HO.HOS 11:53
PROVIDERS: PCP Internal Medicine Geriatric Medicine; Visit Provider Orthopaedic Surgery
DX: M25.512 Pain in left shoulder (principal)
CPT/HCPCS: 99203

== ENCOUNTER 2024-08-21 19:07 | Outpatient (REF) | payer MEDICAID, SELFPAY ==
--- NOTE | ~2024-08-21 | MR_ITS ---
EXAMINATION: MR SHOULDER WITHOUT CONTRAST, LEFT CLINICAL INFORMATION: Left shoulder pain. COMPARISON: Left shoulder radiograph dated 08/08/2024. TECHNIQUE: MRI of the shoulder without contrast was performed on a high-field scanner. FINDINGS: ROTATOR CUFF: Mild-moderate supraspinatus, infraspinatus, and subscapularis tendinosis. Distal subscapularis articular surface partial tearing measuring up to 2.3 cm in ML dimension. No full-thickness rotator cuff tendon tear. No muscle atrophy or fatty infiltration. BICEPS: Fluid within the proximal long head biceps tendon sheath which may be related to the trace joint effusion or indicate mild tenosynovitis. Intra-articular tendinosis. No transverse tendon tear or tendon retraction. CORACOACROMIAL ARCH: The undersurface of the acromion is flat with mild lateral downsloping. Moderate acromioclavicular osteoarthritis with capsular edema. Trace fluid and edema within the subacromial subdeltoid bursa, consistent with minimal bursitis. LABRUM/CAPSULE: No displaced labral tear. Intact inferior joint capsule. GLENOHUMERAL JOINT/MARROW: Intact articular cartilage. No acute osseous injury. Trace glenohumeral joint effusion. MR/MR shoulder LT wo con IMPRESSION: 1. Mild-moderate supraspinatus, infraspinatus, and subscapularis tendinosis. Distal subscapularis articular surface partial tearing measuring 2.3 cm in ML dimension. No full-thickness rotator cuff tendon tear. 2. Fluid within the proximal long head biceps tendon sheath which may be related to the trace joint effusion or indicate mild tenosynovitis. Intra-articular tendinosis without a transverse tendon tear or tendon retraction. 3. Moderate acromioclavicular osteoarthritis with lateral downsloping of the acromion. Minimal subacromial subdeltoid bursitis. 4. Trace glenohumeral joint effusion. Electronically signed by: Aleks Muller MD 09/08/2024 01:19 PM [facility]
== END 2024-08-21 19:08 | disposition home or self-care (01) ==
LOC: HO.MRI 19:07
PROVIDERS: PCP Internal Medicine Geriatric Medicine; Visit Provider Orthopaedic Surgery
DX: M25.512 Pain in left shoulder (principal)
CPT/HCPCS: 73221

== ENCOUNTER 2024-09-07 09:51 | Outpatient (AMB) | payer MEDICAID, SELFPAY ==
--- NOTE | 2024-09-07 10:11 | MHC.AMDMED ---
Intake Intake Visit Reasons: DM-mailbox not set up Medication Administration Professional Required: Yes Medication Administration Professional Language: Senior Integration Architect Name: Lolly [id number] Accompanied by: Daughter Allergies metformin Adverse Reaction (Mild, Verified 08/08/24 12:03) stomach upset HPI Comprehensive Diabetes Asmnt Most Recent Diabetes Results: Microalb/Creat Ratio 87.0 ug/mg cr (<30) H 12/20/23 Cholesterol 138 mg/dL (<200) 12/20/23 HDL Cholesterol 53 mg/dL (>40) 12/20/23 Triglycerides 69 mg/dL (<150) 12/20/23 Creatinine 0.71 mg/dL (0.5-1.4) 06/26/24 Blood Urea Nitrogen 15 mg/dL (9-16) 06/26/24 Sodium 144 mmol/L (135-145) 06/26/24 Potassium 4.3 mmol/L (3.3-5.1) 06/26/24 Chloride 105 mmol/L (96-108) 06/26/24 Carbon Dioxide 30 mmol/L (22-29) H 06/26/24 Calcium 9.6 mg/dL (8.4-10.2) 06/26/24 AST 25 U/L (5-31) 06/26/24 ALT 18 U/L (0-31) 06/26/24 Total Protein 7.4 g/dL (6.5-8.0) 06/26/24 Albumin 4.1 g/dL (3.5-5.0) 06/26/24 [facility] Medical History Diabetic retinopathy associated with type 2 diabetes mellitus Diabetic 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 associated with type 2 diabetes mellitus 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 Mother Diabetes mellitus Daughter Diabetes mellitus Social History Household Members: Family Housing: House Do you presently have visiting nurse or other home services: No Alcohol intake: current Alcohol intake frequency: does not drink Comment: rings appropriately Patient Tobacco Use Status: Never used Tobacco Second Hand Smoke Exposure: No service: No Current occupational status: disabled Current occupation: right handed Female Reproductive History Menstrual Age of Menarche: 8 Assessment & Plan Assessment & Plan (1) Type 2 diabetes mellitus with diabetic neuropathy, unspecified: Code(s): E11.40 - Type 2 diabetes mellitus with diabetic neuropathy, unspecified Qualifiers: Diabetes mellitus long-term insulin use: 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 1% Hyperglycemia:? 32% Time in Range:? 67% Average glucose for the last 2 weeks?168 mg/dL Patient is currently taking Toujeo 36 units at bedtime, however reports she sometimes forgets to take Toujeo at least 2 to 3 times a week Recommended she move Toujeo to the morning to see if this can increase compliance Reviewed with patient how to treat hypoglycemia with rule of 15s Patient's last A1c in 07/2024 7.3%, stable from A1c done in 04/2024 of 7.4% Reviewed how to interpret trend arrows Reminded patient that to check finger sticks if symptoms do not match sensor reading. Discussed lag time between finger stick and sensor data.? Patient able to insert sensor independently at home without issue.? Patient will follow-up with nutrition educator after next A1c if needed Portions of this note were created using voice recognition software, please excuse any words or phrases that may have been misinterpreted. Patient Instructions: Trasladar Toujeo 36 unidades a Ma?jabari para evitar omitir dosis Trate los niveles bajos de glucosa con la nia de 15. Si aumentan los episodios de niveles bajos de glucosa, reduzca Toujeo a 32 unidades. Si el nivel bajo de glucosa contin?a, comun?quese con el proveedor. Coding Level of Care Code Est Pt Level 1 (65938) Diagnoses Type 2 diabetes mellitus with diabetic neuropathy, with long-term current use of insulin E11.40; Z79.4 Diabetes mellitus long-term insulin use: with long-term use
== END 2024-09-07 10:33 | disposition home or self-care (01) ==
PROVIDERS: PCP Internal Medicine Geriatric Medicine; Visit Provider Registered Nurse Diabetes Educator
DX: E11.40 Type 2 diabetes mellitus with diabetic neuropathy, unspecified (principal); Z79.4 Long term (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 of insulin

== ENCOUNTER → 2024-09-07 09:51 | Outpatient (BNVA) | payer MEDICAID, SELFPAY | PROVIDERS: PCP Internal Medicine Geriatric Medicine; Visit Provider Registered Nurse Diabetes Educator | DX: E11.40 Type 2 diabetes mellitus with diabetic neuropathy, unspecified (principal); Z79.4 Long term (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 of insulin | CPT/HCPCS: 99211 ==

== ENCOUNTER 2024-11-16 11:38 | Outpatient (AMB) | payer MEDICAID, SELFPAY ==
--- NOTE | 2024-11-16 11:41 | A.OFFVIS_ITS ---
Vital Signs 11/16/24 11:42 Height 5 ft 2 in Weight 138 lb 14.259 oz BMI 25.4 BP 120/76 Blood Pressure Location Rt brachial Position Sitting Pulse 85 Pulse Source Pulse Oximeter Intake Visit Reasons: DM Intake Note: Patient presents today for a follow-up on Type 2 Diabetes Mellitus: Last Diabetic Eye Exam: 02/2024 Last Podiatry Exam- Does not see a Shipping Inspector Most recent HbA1c- 7.1%, 11/16/2024 Random Glucose- 113 mg/dL, Today Freight Manager Required: Yes Freight Manager Language: Tenant Coordinator Services: Freight Manager Present ([employer] ZEHRA) Accompanied by: Self / Same As Patient Allergies metformin Adverse Reaction (Mild, Verified 08/08/24 12:03) stomach upset HPI Comments Details: Patient is 59 yo female with DM type 2 diagnosed around 2004 who presents for continued management of diabetes. Past Medical History includes: hypertensio n, HLD arthritis, depression, uninodular goiter s/p thyroidectomy with papillary microcarcinoma), gastroparesis Current diabetes medications include: Metformin 250mg daily (intolerant higher doses), Jardiance 25 mg, Actos 30mg, Truilcity 3mg, Toujeo 30 units (decreased from last visit 36), and Humalog will be 4 small meals, 8 units for medium meals and 12 units for a large meal = 2 units if BG>200 TIDcc Micro and Macro Vascular Complications: neuropathy, +alb/cr, retinopathy, gastroparesis Blood Glucose Monitoring: Rama download GMI 22% usage TGT 93% high 7%. Lows have resolved. A1C 07/2024 7.3% today 7.1% Eye Exam-February 2024undergoing VEGF treatment for retinopathy No podiatry. +mild neuropathy well managed on gabapentin On levothyroxine 88 ug QD for post-surgical hypothyroidism for papillary microcarcinoma ROS CONSTITUTIONAL: Denies weight loss, fever and chills. HEENT: Denies changes in vision and hearing. RESPIRATORY: Denies SOB and cough. CV: Denies palpitations and CP GI: Denies abdominal pain, nausea, vomiting and diarrhea. : Denies dysuria and urinary frequency. MSK: Denies new myalgia and joint pain. SKIN: Denies rash and pruritus. NEUROLOGICAL: Denies headache PSYCHIATRIC: Denies recent changes in mood. PHYSICAL EXAM: GENERAL: Alert and oriented x 3. NAD EYES: EOMI. Anicteric. HENT: Moist mucous membranes. No scleral icterus. No cervical lymphadenopathy. LUNGS: Clear to auscultation bilaterally. CARDIOVASCULAR: Regular rate and rhythm. No murmur. No JVD. ABDOMEN: Soft, non-tender +bs EXTREMITIES: No edema. Non-tender. Visual exam of foot performed. No ulcerations or open lesions. +DP pulses. Sensation intact to monofilament exam. Nml vibratory sense SKIN: No rashes or lesions. Warm. NEUROLOGIC: No focal neurological deficits. CN II-XII grossly intact PSYCHIATRIC: Cooperative. 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 Mother Diabetes mellitus Daughter Diabetes mellitus Social History Household Members: Family Housing: House Do you presently have visiting nurse or other home services: No Alcohol intake: current Alcohol intake frequency: does not drink Comment: rings appropriately Patient Tobacco Use Status: Never used Tobacco Second Hand Smoke Exposure: No service: No Current occupational status: disabled Current occupation: right handed Female Reproductive History Menstrual Age of Menarche: 8 Physical Exam Vital Signs: Last Vital Signs Pulse 85 11/16/24 11:42 BP 120/76 11/16/24 11:42 BMI result Body Mass Index 25.4 Results AMB Hemoglobin A1c AMB Hemoglobin A1c 7.1 % Last Edit by RAJEEV Fernández on 11/16/24 11:59 Results Reviewed Results Reviewed: Laboratory Last Values Glucose (Clinic) 113 mg/dL (60-115) 11/16/24 11:47 Hgb A1c (Clinic) 7.1 % (4.0-6.0) H 11/16/24 11:57 Assessment & Plan Assessment & Plan (1) Diabetic retinopathy associated with type 2 diabetes mellitus: Code(s): E11.319 - Type 2 diabetes mellitus with unspecified diabetic retinopathy without macular edema Category: Medical Qualifiers: Diabetic retinopathy severity: with unspecified retinopathy severity Diabetes mellitus macular edema: macular edema presence unspecified Laterality: unspecified laterality Qualified Code(s): E11.319 - Type 2 diabetes mellitus with unspecified diabetic retinopathy without macular edema Plan: Very close to goal. Still having infrequent borderline readings. Will keep medications as is and follow up in 3 months Orders: Orders AMB Hemoglobin A1c Today E11.319 - Type 2 diabetes mellitus with unspecified diabetic retinopathy without macular edema Coding Level of Care Code Est Pt Level 4 (62332) Diagnoses Diabetic retinopathy associated with type 2 diabetes mellitus, macular edema presence unspecified, unspecified laterality, unspecified retinopathy severity E11.319 Diabetic retinopathy severity: with unspecified retinopathy severity Diabetes mellitus macular edema: macular edema presence unspecified Laterality: unspecified laterality
[2024-11-16 11:42] VITALS: BP 120/76; PULSE 85; BMI 25.4
[2024-11-16 11:52] LABS: Glucose, Whole Blood 113 mg/dL (60-115)
--- OUTSIDE RECORDS SUMMARY | 2024-11-16 15:35 | XMS_ITS | Encounter Summary ---
Author Organization [employer] Address [address] [place] [address] Care Team Providers Care Plant Operations Worker Name Role Phone Name, Roel ORTEGA Primary Care Provider [phone] Encounter Details Date Type Department Care Team ([facility] st Contact Info) Description 07/06/2023 Telephone [facility] MEDICINE [address] [place], [place] [phone] Name, MD Roel [address] [place] [address] Social History Tobacco Use Types Packs/Day Years Used Date Smoking Tobacco: Never Passive Smoke Exposure: Past Smokeless Tobacco: Never Alcohol Use Standard Drinks/Week Comments Never 0 (1 standard drink = 0.6 oz pur e alcohol) Depression Answer Date Recorded Patient Health Questionnaire-9 Score 0 11/03/2022 Depression Answer Date Recorded Patient Health Questionnaire-2 Score 0 11/03/2022 Comments No Sex and Gender Information Value Date Recorded Sex Assigned at Female 08/17/2022 10:32 AM EDT Legal Sex Female 10:32 AM EDT Gender Identity Female 08/17/2022 10:32 AM EDT Sexual Orientation Straight 08/17/2022 10 :32 AM EDT documented as of this encounter Miscellaneous Notes * Telephone Encounter - Chana Salazar - 07/06/2023 4:24 PM EDT Tc from pt states received letter to schedule f/u appointment with coleen. Rice Farmer does not see any documentation on letter or recall. Please contact pt at [phone] (Belizean) documented in this encounter Plan of Treatment Upcoming Encounters Date Type Department Care Team (Late st Contact Info) Description 11/30/2024 10:30 AM EST Office Visit [facility] MEDICINE [address] [place] [address] Name, MD Roel [address] [place], [place] [phone] 12/14/2024 3:30 PM EST Office Visit [facility] OPTOMETRY [address] [place], [place] [phone] LeviRosa M ritchie, OD [address] [place] [address] documented as of this encounter Visit Diagnoses Not on filedocumented in this encounter Additional Health Concerns Assessment Noted Time PHQ-9 Depression Total Score: 0 11/03/19 23 8:54 AM EST documented as of this encounter Care Teams Plant Operations Worker Relationship Specialty Start Date End Date Name, MD Roel [address] [place], [place] [phone] PCP - General Family Medicine 10/04/17 documented as of this encounter
--- OUTSIDE RECORDS SUMMARY | 2024-11-16 15:35 | XMS_ITS | Encounter Summary ---
Author Organization [employer] Address [address] [place] [address] Care Team Providers Care Human Intelligence Name Role Phone Name, Roel ORTEGA Primary Care Provider [phone] Reason for Visit * Reason Onset Date Comments Appointment Request 12/09/2023 Encounter Details Date Type Department Care Team ([facility] st Contact Info) Description 12/09/2023 Telephone [facility] MEDICINE [address], [place] [phone] Name, MD Roel [address] [place] [address] Appointment Request Social History Tobacco Use Types Packs/Day Years Used Date Smoking Tobacco: Never Passive Smoke Exposure: Past Smokeless Tobacco: Never Alcohol Use Standard Drinks/Week Comments Never 0 (1 standard drink = 0.6 oz pur e alcohol) Depression Answer Date Recorded Patient Health Questionnaire-9 Score 0 11/03/2022 Housing Stability Answer Date Recorded What is your housing situation today? I have richard stein 08/03/[address] you li ve. Do you have problems with any of the following? None of the above 08/03/2023 Food Insecurity Answer Date Recorded Within the past 12 months, y ou worried that your food would run out before you got money to buy more: Never True 08/03/2023 Within the past 12 months,th e food you bought just didn't last and you didn't have enough money to get more: Never True Transportation Answer Date Recorded In the past 12 months, has l ack of transportation kept you from medical appts, meetings, work or from getting things needed for daily living? No 08/03/2023 Utilities Answer Date Recorded In the past 12 months, has t he electric, gas, oil or water company threatened to shut off services in your home? No 08/03/2023 Depression Answer Date Recorded Patient Health Questionnaire-2 Score 0 11/03/2022 Comments No Sex and Gender Information Value Date Recorded Sex Assigned at Female 08/17/2022 10:32 AM EDT Legal Sex Female 10:32 AM EDT Gender Identity Female 08/17/2022 10:32 AM EDT Sexual Orientation Straight 08/17/2022 10 :32 AM EDT documented as of this encounter Miscellaneous Notes * Telephone Encounter - Srinivasan Connell - 12/09/2023 9:16 AM EST Tc from patients daughter calling to reschedule missed appt on 11/22 documented in this encounter Plan of Treatment Upcoming Encounters Date Type Department Care Team (Late st Contact Info) Description 11/30/2024 10:30 AM EST Office Visit [facility] MEDICINE [address] [place] [address] Name, MD Roel [address] [place] [address] 12/14/2024 3:30 PM EST Office Visit [facility] OPTOMETRY [address] [place] [address] Levi, Rosa M, OD [address] [place] [address] documented as of this encounter Visit Diagnoses Not on filedocumented in this encounter Additional Health Concerns Assessment Noted Time PHQ-9 Depression Total Score: 0 11/03/19 23 8:54 AM EST documented as of this encounter Care Teams Human Intelligence Relationship Specialty Start Date End Date NameRoel MD [address] [place] [address] PCP - General Family Medicine 10/04/17 documented as of this encounter
--- OUTSIDE RECORDS SUMMARY | 2024-11-16 15:35 | XMS_ITS | Encounter Summary ---
Author Organization [facility] Address [address] [place] [address] 7t [place] [address] Care Team Providers Care Supervisor Front Name Role Phone Name, Roel ORTEGA Primary Care Provider [phone] Encounter Details Date Type Department Care Team (Late st Contact Info) Description 09/15/2022 Abstract [facility] [address] [place] [address] Dental, Provider, DDS Social History Tobacco Use Types Packs/Day Years Used Date Smoking Tobacco: Never Assessed Comments Unknown Sex and Gender Information Value Date Recorded Sex Assigned at Female 08/17/2022 10:32 AM EDT Legal Sex Female 10:32 AM EDT Gender Identity Female 08/17/2022 10:32 AM EDT Sexual Orientation Straight 08/17/2022 10 :32 AM EDT documented as of this encounter Plan of Treatment Upcoming Encounters Date Type Department Care Team (Late st Contact Info) Description 11/30/2024 10:30 AM EST Office Visit [facility] [address] [place] [address] Name, MD Roel [address] [place] [address] 12/14/2024 3:30 PM EST Office Visit [facility] [address] [place] [address] Levi, Rosa M, OD [address] [place] [address] documented as of this encounter Visit Diagnoses Not on filedocumented in this encounter Care Teams Supervisor Front Relationship Specialty Start Date End Date Name, MD Roel [address] [place] [address] PCP - General Family Medicine 10/04/17 documented as of this encounter
--- OUTSIDE RECORDS SUMMARY | 2024-11-16 15:35 | XMS_ITS | Encounter Summary ---
Author Organization [employer] Address [address] [facility] 7t [place] [address] Care Team Providers Care Radio Frequency Technician Name Role Phone Name, Roel ORTEGA Primary Care Provider [phone] Reason for Visit * Reason Onset Date Comments Results 04/19/2024 Encounter Details Date Type Department Care Team ([facility] st Contact Info) Description 04/19/[address] [facility] MEDICINE [address] [place], [place] [phone] Name, MD Roel [address] [place] [address] Results Social History Tobacco Use Types Packs/Day Years Used Date Smoking Tobacco: Never Passive Smoke Exposure: Past Smokeless Tobacco: Never Alcohol Use Standard Drinks/Week Comments Never 0 (1 standard drink = 0.6 oz pur e alcohol) Alcohol Answer Date Recorded Frequency of Alcohol Consumption Not on file 04/17/2024 Average Number of Drinks Not on file 024 Frequency of Binge Drinking Not on file 10/2023 Score 0 04/17/2024 Depression Answer Date Recorded Patient Health Questionnaire-9 Score 0 12/31/2023 Patient Health Questionnaire-9 Score 0 12/31/2023 Last PHQ-9: Questionnaire Data Not on file 0 12/31/2023 Housing Stability Answer Date Recorded What is your housing situation today? I have richard stein 12/31/[address] you li ve. Do you have problems with any of the following? None of the above 12/31/2023 Food Insecurity Answer Date Recorded Within the past 12 months, y ou worried that your food would run out before you got money to buy more: Never True 12/31/2023 Within the past 12 months,th e food you bought just didn't last and you didn't have enough money to get more: Never True Transportation Answer Date Recorded In the past 12 months, has l ack of transportation kept you from medical appts, meetings, work or from getting things needed for daily living? No 12/31/2023 Utilities Answer Date Recorded In the past 12 months, has t he electric, gas, oil or water company threatened to shut off services in your home? No 12/31/2023 Depression Answer Date Recorded Patient Health Questionnaire-2 Score 0 12/31/2023 Comments No Sex and Gender Information Value Date Recorded Sex Assigned at Female 08/17/2022 10:32 AM EDT Legal Sex Female 10:32 AM EDT Gender Identity Female 08/17/2022 10:32 AM EDT Sexual Orientation Straight 08/17/2022 10 :32 AM EDT documented as of this encounter Miscellaneous Notes * Telephone Encounter - Scott Laguna RN - 04/19/2024 4:37 PM EDT T/C to pt. For below message, pt. Is asking for result for gram stain and wound culture, RN cannot se result for wound culture in chart. Please review and advise. * Telephone Encounter - Estela Anglin - 04/19/2024 3:33 PM EDT Tc from pt requesting a call back with results from 04/03, 04/17 and 04/19 documented in this encounter Plan of Treatment Upcoming Encounters Date Type Department Care Team (Late st Contact Info) Description 11/30/2024 10:30 AM EST Office Visit [facility] MEDICINE [address] [place] [address] Name, MD Roel [address] [place] [address] 12/14/2024 3:30 PM EST Office Visit [facility] OPTOMETRY [address] [place], [place] [phone] Rosa M Sims, OD [address] [place] [address] documented as of this encounter Visit Diagnoses Not on filedocumented in this encounter Additional Health Concerns Assessment Noted Time PHQ-9 Depression Total Score: 0 12/31/19 24 10:54 AM EDT documented as of this encounter Care Teams Radio Frequency Technician Relationship Specialty Start Date End Date Name, MD Roel [address] [place] [address] PCP - General Family Medicine 10/04/17 documented as of this encounter
--- OUTSIDE RECORDS SUMMARY | 2024-11-16 15:35 | XMS_ITS | Encounter Summary ---
Author Organization [facility] Address [address] [facility] 7t [place] [address] Care Team Providers Care Outpatient Services Director Name Role Phone Name, Roel ORTEGA Primary Care Provider [phone] Encounter Details Date Type Department Care Team (Late st Contact Info) Description 03/18/[address] [facility] MEDICINE [address] [place] [address] Name, MD Roel [address] [place] [address] Social History Tobacco Use Types Packs/Day Years Used Date Smoking Tobacco: Never Passive Smoke Exposure: Past Smokeless Tobacco: Never Depression Answer Date Recorded Patient Health Questionnaire-9 Score 0 11/03/2022 Depression Answer Date Recorded Patient Health Questionnaire-2 Score 0 11/03/2022 Comments No Sex and Gender Information Value Date Recorded Sex Assigned at Female 08/17/2022 10:32 AM EDT Legal Sex Female 10:32 AM EDT Gender Identity Female 08/17/2022 10:32 AM EDT Sexual Orientation Straight 08/17/2022 10 :32 AM EDT COVID-19 Exposure Response Date Recorded In the last 10 days, have yo u been in contact with someone who was confirmed or suspected to have Coronavirus/COVID-19? No / Unsure 02/19/2023 9:00 AM EDT documented as of this encounter Plan of Treatment Upcoming Encounters Date Type Department Care Team (Late st Contact Info) Description 11/30/2024 10:30 AM EST Office Visit [facility] MEDICINE [address] [place] [phone] Name, MD Roel [address] [place] [address] 12/14/2024 3:30 PM EST Office Visit [facility] OPTOMETRY [address] [place], [place] [phone] Levi, Rosa M, OD [address] [place] [address] documented as of this encounter Procedures Procedure Name Priority Date/Time Associated Diagnosis Comments COLONOSCOPY Routine 11/14/2018 4:17 PM EST documented in this encounter Results * Colonoscopy (11/14/2018 4:17 PM EST) Colonoscopy Normal Normal Narrative Ami Giraldo - 11/14/2018 4:17 PM EST Recommended 5 year follow up Historical Provider HEALTH MAINTENANCE Final Result documented in this encounter Visit Diagnoses Not on filedocumented in this encounter Additional Health Concerns Assessment Noted Time PHQ-9 Depression Total Score: 0 11/03/19 23 8:54 AM EST documented as of this encounter Care Teams Outpatient Services Director Relationship Specialty Start Date End Date Name, MD Roel [address] [place], [place] [phone] PCP - General Family Medicine 10/04/17 documented as of this encounter
--- OUTSIDE RECORDS SUMMARY | 2024-11-16 15:35 | XMS_ITS | Encounter Summary ---
Author Organization [facility] Address [address] [facility] 7t [place] [address] Care Team Providers Care Battery Container Tester Name Role Phone Name, Roel ORTEGA Primary Care Provider [phone] Encounter Details Date Type Department Care Team (Late st Contact Info) Description 12/18/2022 Abstract [facility] ADULT DENTAL [address] [place] [address] Najma Interiano, DDS [address] [place] [address] Social History Tobacco Use Types Packs/Day Years Used Date Smoking Tobacco: Never Passive Smoke Exposure: Past Smokeless Tobacco: Never Depression Answer Date Recorded Patient Health Questionnaire-9 Score 0 11/03/2022 Depression Answer Date Recorded Patient Health Questionnaire-2 Score 0 11/03/2022 Comments Unknown Sex and Gender Information Value [...] suspected to have Coronavirus/COVID-19? No / Unsure 12/16/2022 7:57 AM EST documented as of this encounter Plan of Treatment Upcoming Encounters Date Type Department Care Team (Late Contact Info) Description 11/30/2024 10:30 AM EST Office Visit [facility] MEDICINE [address] [place] [address] Name, MD Roel [address] [place] [address] 12/14/2024 3:30 PM EST Office Visit [facility] OPTOMETRY [address] [place], [place] [phone] Levi, Rosa M, OD [address] [place], [place] [phone] documented as of this encounter Visit Diagnoses Not on filedocumented in this encounter Additional Health Concerns Assessment Noted Time PHQ-9 Depression Total Score: 0 11/03/19 23 8:54 AM EST documented as of this encounter Care Teams Battery Container Tester Relationship Specialty Start Date End Date Name, MD Roel [address] [place] [address] PCP - General Family Medicine 10/04/17 documented as of this encounter
--- OUTSIDE RECORDS SUMMARY | 2024-11-16 15:35 | XMS_ITS | Encounter Summary ---
Author Organization [employer] Address [address] [facility] 7t [place] [address] Care Team Providers Care Planning Associate Name Role Phone Name, Roel ORTEGA Primary Care Provider [phone] Reason for Visit * Reason Onset Date Comments call back requested 09/22/2023 Encounter Details Date Type Department Care Team ([facility] Contact Info) Description 09/22/2023 Telephone [facility] MEDICINE [address] [place] [address] Name, MD Roel [address] [place] [address] call back requested Social History Tobacco Use Types Packs/Day Years [...] Recorded Patient Health Questionnaire-2 Score 0 12/31/2023 Internet Access Answer Date Recorded Internet Access Q1 No 06/16/2024 Internet Access Q2 I do not want or need it 05/20 Comments No Sex and Gender Information Value Date Recorded Sex Assigned at Female 08/17/2022 10:32 AM EDT Legal Sex Female 10:32 AM EDT Gender Identity Female 08/17/2022 10:32 AM EDT Sexual Orientation Straight 08/17/2022 10 :32 AM EDT documented as of this encounter Miscellaneous Notes * Telephone Encounter - Inez Adame RN - 09/22/2023 3:12 PM EST T/C returned to pt via [employer] Bed[employer] Inez #[id number]. Pt reports that she has been getting intermittent raised lumps on her head x 3 months. States she forgot to mention at follow up appointment.Pt denies having lumps now. States that when lumps occur, they are raised, warm, red and very painful. Denies drainage. States she is not able to comb her hair d/t pain when lumps occur. Pt denies the use of any new products. Denies lumps on head now. Reports last incidence 3 days ago. States she has not tried home care as she was unsure of cause. Recommended that pt come to [facility] for evaluation should lumps return. * Telephone Encounter - Christos Dawson - 09/22/2023 12:26 PM EST Tc from daughter Tevin states they are aware pt was seen today with PCP and would like to inform PCP that pt forget to mention that they have been getting skin lumps on head from time to time andcauses headaches, states pt does not have any skin lump at the moment however they are concerned and denied triage. Please contact at [phone] documented in this encounter Plan of Treatment Upcoming Encounters Date Type Department Care Team (Late st Contact Info) Description 11/30/2024 10:30 AM EST Office Visit [facility] MEDICINE [address] [place] [address] Name, MD Roel [address] [place] [address] 12/14/2024 3:30 PM EST Office Visit [facility] OPTOMETRY [address] [place] [address] Levi, Rosa M, OD [address] [place] [address] documented as of this encounter Visit Diagnoses Not on filedocumented in this encounter Additional Health Concerns Assessment Noted Time PHQ-9 Depression Total Score: 0 11/03/19 23 8:54 AM EST documented as of this encounter Care Teams Planning Associate Relationship Specialty Start Date End Date Name, MD Roel [address] [place] [address] PCP - General Family Medicine 10/04/17 documented as of this encounter
--- OUTSIDE RECORDS SUMMARY | 2024-11-16 15:35 | XMS_ITS | Encounter Summary ---
Author Organization [employer] Address [address] [facility] [address] 7t [place] [address] Care Team Providers Care Break Out Worker Name Role Phone Name, Roel ORTEGA Primary Care Provider [phone] Reason for Visit * Reason Onset Date Comments December Recall 10/27/2024 Encounter Details Date Type Department Care Team ([facility] st Contact Info) Description 10/27/2024 Telephone [facility] MEDICINE [address] [place] [address] Shreya [facility] [place] December Recall Social History Tobacco Use Types Packs/Day Years [...] encounter Miscellaneous Notes * Telephone Encounter - Vanna Cash MA - 10/27/2024 1:34 PM EST T/c to pt to book her for a annual pelvic exam 15min with Erica Chow in December no answer lvm. documented in this encounter Plan of Treatment Upcoming Encounters Date Type Department Care Team (Late st Contact Info) Description 11/30/2024 10:30 AM EST Office Visit [facility] MEDICINE [address] [place] [address] Name, MD Roel [address] [place] [address] 12/14/2024 3:30 PM EST Office Visit [facility] OPTOMETRY [address] [place] [address] Roas M Sims, OD [address] [place] [address] documented as of this encounter Visit Diagnoses Not on filedocumented in this encounter Additional Health Concerns Assessment Noted Time PHQ-9 Depression Total Score: 0 12/31/19 24 10:54 AM EDT documented as of this encounter Care Teams Break Out Worker Relationship Specialty Start Date End Date Name, MD Roel [address] [place] [address] PCP - General Family Medicine 10/04/17 documented as of this encounter
--- OUTSIDE RECORDS SUMMARY | 2024-11-16 15:35 | XMS_ITS | Encounter Summary ---
Demographics Address [address] [place] [address] [address] [place] [address] Work Phone Home Phone Mobile Phone Preferred Language es Marital Status Single Jewish Affiliation Unknown Race Other Race Ethnic Group or Author Organization [employer] Address [address] [facility]t [place] [address] Care Team Providers Care Cash Sales Audit Clerk Name Role Phone Name, Roel ORTEGA Primary Care Provider [phone] Encounter Details Date Type Department Care Team (Latest Contact Info) Description 11/09/2024 Travel Social History Tobacco Use Types Packs/Day Years [...] Description 11/30/2024 10:30 AM EST Office Visit [facility] MEDICINE [address] [place] [address] NameRoel MD [address] [place] [address] 12/14/2024 3:30 PM EST Office Visit [facility] OPTOMETRY [address] [place] [address] Levi, Rosa M, OD [address] [place] [address] documented as of this encounter Visit Diagnoses Not on filedocumented in this encounter Additional Health Concerns Assessment Noted Time PHQ-9 Depression Total Score: 0 12/31/19 24 10:54 AM EDT documented as of this encounter Care Teams Cash Sales Audit Clerk Relationship Specialty Start Date End Date Name, MD Roel [address] [place] [address] PCP - General Family Medicine 10/04/17 documented as of this encounter
--- OUTSIDE RECORDS SUMMARY | 2024-11-16 15:35 | XMS_ITS | Encounter Summary ---
Author Organization [facility] Address [address] [facility] 7t [place] [address] Care Team Providers Care Dado Operator Name Role Phone Name, Roel ORTEGA Primary Care Provider [phone] Encounter Details Date Type Department Care Team (Late st Contact Info) Description 03/19/2023 Abstract [facility] MEDICINE [address] [place] [address] Name, MD Roel [address] [place] [address] Social History Tobacco Use Types Packs/Day Years [...] Description 11/30/2024 10:30 AM EST Office Visit [facility] [address] [place] [address] Name, MD Roel [address] [place] [address] 12/14/2024 3:30 PM EST Office Visit [facility] OPTOMET[facility] [address] [place] [address] Levi, Rosa M, OD [address] [place], [place] [phone] documented as of this encounter Visit Diagnoses Not on filedocumented in this encounter Additional Health Concerns Assessment Noted Time PHQ-9 Depression Total Score: 0 11/03/19 23 8:54 AM EST documented as of this encounter Care Teams Dado Operator Relationship Specialty Start Date End Date Name, MD Roel [address] [place] [address] PCP - General Family Medicine 10/04/17 documented as of this encounter
--- OUTSIDE RECORDS SUMMARY | 2024-11-16 15:35 | XMS_ITS | Encounter Summary ---
Author Organization [employer] Address [address] [facility] 7t [place] [address] Care Team Providers Care Manufacturing Associate Name Role Phone Name, Roel ORTEGA Primary Care Provider [phone] Reason for Visit * Reason Comments Med Refill Encounter Details Date Type Department Care Team ([facility] st Contact Info) Description 06/05/2024 Refill [facility] MEDICINE [address] [place], [place] [phone] Name, MD Roel [address] [place] [address] Essential hypertension Social History Tobacco Use Types Packs/Day Years [...] Description 11/30/2024 10:30 AM EST Office Visit [facility] MEDICINE [address] [place] [address] Name, MD Roel [address] [place] [address] 12/14/2024 3:30 PM EST Office Visit [facility] OPTOMETRY [address] [place] [address] Levi, Rosa M, OD [address] [place] [address] documented as of this encounter Visit Diagnoses Diagnosis Essential hypertension Unspecified essential hypertension documented in this encounter Additional Health Concerns Assessment Noted Time PHQ-9 Depression Total Score: 0 12/31/19 24 10:54 AM EDT documented as of this encounter Care Teams Manufacturing Associate Relationship Specialty Start Date End Date NameRoel MD [address] [place] [address] PCP - General Family Medicine 10/04/17 documented as of this encounter
--- OUTSIDE RECORDS SUMMARY | 2024-11-16 15:35 | XMS_ITS | Encounter Summary ---
Author Organization [employer] Address [address] [facility] 7t [place] [address] Care Team Providers Care Enrolled Nurse Name Role Phone Name, Roel ORTEGA Primary Care Provider [phone] Reason for Visit * Reason Comments Med Refill Encounter Details Date Type Department Care Team ([facility] st Contact Info) Description 10/19/2024 Refill [facility] [place] MEDICINE [address] [place], [place] [phone] Name, MD Roel [address] [place], [place] [phone] Papillary thyroid carcinoma (CMS/HCC) Social History Tobacco Use Types Packs/Day Years [...] 10:30 AM EST Office Visit [facility] MEDICINE [address] [place] [address] Roel Rock MD [address] [place] [address] 12/14/2024 3:30 PM EST Office Visit [facility] OPTOMETRY [address] [place] [address] Levi, Rosa M, OD [address] [place] [address] documented as of this encounter Visit Diagnoses Diagnosis Papillary thyroid carcinoma (CMS/HCC) documented in this encounter Additional Health Concerns Assessment Noted Time PHQ-9 Depression Total Score: 0 12/31/19 24 10:54 AM EDT documented as of this encounter Care Teams Enrolled Nurse Relationship Specialty Start Date End Date Roel Rock MD [address] [place] [address], [place] [address] PCP - General Family Medicine 10/04/17 documented as of this encounter
--- OUTSIDE RECORDS SUMMARY | 2024-11-16 15:35 | XMS_ITS | Clinical Summary ---
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 Active Calcium Polycarbophil (fiber) 625 MG tablet Take 2 tablets by mouth at bed time. Active cholecalciferol (Vitamin D-3) 50 MCG (1999 UT) capsule Take 1 capsule by mouth in the morning. Active Diclofenac Sodium 1 % gel Apply topically every 12 (twelve) hours. 021 Active empagliflozin (Jardiance) 25 MG Take 1 tablet by mouth at bed time. Active glucose blood (FREESTYLE LITE) test strip 1 strip every 8 (eight) hours. 018 Active hydrocortisone 1 % cream apply by topical route 2 times every day to the affected area(s) 022 Active hydroxychloroqui ne (Plaquenil) 200 MG tablet Take 1 tablet by mouth at bed time. Active insulin glargine (Toujeo SoloStar) 300 UNIT/ML injection Inject under the skin. 018 Active insulin lispro (HumaLOG) 100 UNIT/ML injection INJECT 4 UNITS SUBCUTANEOUSLY BEFORE BREAKFAST AND LUNCH AND 6 UNITS BEFORE DINNER Active omeprazole (PriLOSEC) [address] capsule Take 1 capsule by mouth at bed time. Active polyvinyl alcohol (Liquifilm Tears) 1.4 % ophthalmic solution 1 drop in each eye at least 3 times a day for burning Active sertraline (Zoloft) 50 MG tablet Take 1 tablet by mouth at bed time. Active Skin Protectants, Misc. (eucerin) cream use bid to hands and feet Active terbinafine (LamISIL) 1 % cream Apply topically every 12 (twelve) hours. Active traZODone (Desyrel) 100 MG tablet Take 1 tablet by mouth at bed time. Active pioglitazone (Actos) 30 MG tablet Take 30 mg by mouth in the morning. Active sertraline (Zoloft) 100 MG tablet Take 100 mg by mouth in the morning. Active senna (Senokot) 8.6 MG tablet TAKE 2 TABLETS BY MOUTH AT BEDTIME FOR CONSTIPATION Active pravastatin (Pravachol) 20 MG tablet Take 20 mg by mouth at bedtime. Active Myrbetriq 25 MG 24 hr tablet TAKE 1 TABLET BY MOUTH EVERY MORNING DO NOT BREAK, CRUSH, DISSOLVE OR CHEW Active BD Pen Needle Sandy U/F 32G X 4 MM misc USE DIRECTED FOUR TIMES DAILY Active gabapentin (Neurontin) 300 MG capsule Take 300 mg by mouth at bedtime. Active dicyclomine (Bentyl) 20 MG tablet Take 20 mg by mouth before breakfast, before lunch, and before evening meal. Active estradiol (Estrace) 0.1 MG/GM vaginal cream 1 g vaginally nightly x 2 weeks, then 1 g twice a week ongoing 42.5 g 2 Active Alcohol Swabs (Alcohol Prep) 70 % pads USE THREE TIMES DAILY 100 each 11 Active insulin aspart FlexPen (NovoLOG) 100 UNIT/ML penIndications:T ype 2 diabetes mellitus with diabetic 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 (CMS/HCC) INJECT SUBCUTANEOUSLY THREE TIMES DAILY DIRECTED: 4 UNITS WITH MEALS SMALL, 8 UNITS WITH MEALS MEDIANA, 10 UNITS WITH MEALS MELI AND ADDITIONAL 2 UNITS IF BG>200 MG/DL 15 mL 6 Active TRUEplus Lancets 33G miscIndications: 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) TEST BLOOD SUGAR FOUR TIMES DAILY 100 each Active dulaglutide (Trulicity) 0.75 MG/0.5ML solution pen-injector Inject 0.75 mg under the skin 1 (one) time per week. 4 each Active fluticasone (Flonase) 50 MCG/ACT nasal spray USE 1-2 SPRAYS IN EACH NOSTRIL ONCE DAILY IN THE MORNING 48 g Active Vitamin D High Potency 25 MCG (1000 UT) capsuleIndicatio ns: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) TAKE 2 CAPSULES BY MOUTH ONCE DAILY IN THE MORNING 180 capsule Active Aspirin Adult Low Strength 81 MG EC tablet TAKE 1 TABLET BY MOUTH EVERY MORNING 90 tablet 3 Active famotidine (Pepcid) 20 MG tablet TOME MAYUR TABLETA DIARIAMENTE A LA HORA DE ACOSTARSE POR 5 VALDERRAMA 024 Active Continuous Glucose Sensor (FreeStyle Rama 2 Sensor) misc USE DIRECTED EVERY 2 WEEKS Active metFORMIN (Glucophage) 500 MG tablet TAKE 1/2 TABLET BY MOUTH EVERY MORNING WITH FOOD 45 tablet 1 Active montelukast (Singulair) 10 MG tablet TAKE 1 TABLET BY MOUTH AT BEDTIME 90 tablet 1 024 Active amLODIPine (Norvasc) 5 MG tabletIndication s:Essential hypertension TAKE 1 TABLET BY MOUTH EVERY MORNING 90 tablet 1 024 Active acetaminophen (Tylenol) 500 MG tablet Take 2 tablets (1,000 mg) by mouth every 6 (six) hours if needed for mild pain. 40 tablet 024 Active Ventolin HFA 108 (90 Base) MCG/ACT inhaler INHALE 2 PUFFS EVERY 6 HOURS NEEDED FOR WHEEZING 18 g 2 024 Active albuterol (2.5 MG/3ML) 0.083% nebulizer solutionIndicati ons:Mild persistent asthma without complication Take 3 mL (2.5 mg) by nebulization every 6 (six) hours if needed for wheezing or shortness of breath. 75 mL 1 024 2024 Active enalapril (Vasotec) 20 MG tabletIndication s:Essential hypertension TAKE 1 TABLET BY MOUTH AT BEDTIME 90 tablet 1 024 Active hydroCHLOROthiaz ann 12.5 MG tabletIndication s:Essential hypertension TAKE 1 TABLET BY MOUTH EVERY MORNING 90 tablet 024 Active levothyroxine (Synthroid, Levoxyl) 88 MCG tabletIndication s:Papillary thyroid carcinoma (CMS/HCC) TAKE 1 TABLET BY MOUTH EVERY MORNING 90 tablet 1 025 Active ondansetron (Zofran) 4 MG tabletIndication s:Vomiting in adult Take 1 tablet (4 mg) by mouth every 8 (eight) hours if needed for nausea or vomiting for up to 10 doses. 10 tablet 025 Active ondansetron (Zofran) 4 MG tablet Take 1 tablet (4 mg) by mouth every 8 (eight) hours if needed for nausea or vomiting for up to 10 doses. 10 tablet 023 2024 Discontinued(R eorder (will not trigger notification to Pharmacy)) levothyroxine (Synthroid, Levoxyl) 88 MCG tabletIndication s:Papillary thyroid carcinoma (CMS/HCC) TAKE 1 TABLET BY MOUTH EVERY MORNING 90 tablet 1 024 2024 Discontinued Active Problems Problem Noted Date Diagnosed Date Hordeolum externum of right upper eyelid Assessment & Plan (09/06/2024 2:30 PM EST): Advised to wash eyelids with baby shampoo or anti allergenic soap tid Apply erythromycin ointment tid x 7-10d Apply heat pad/warm tea bag to affected eye RTC prn if she notices vision abn, sxs do not resolve after 1w abs. Abdominal wound dehiscence 04/16/2024 Assessment & Plan (04/25/2024 6:47 AM EDT): Patient with purulent drainage from dehiscent ventral abdominal wound, with tachycardia and diffuse abdominal soreness. Able to eat, drink, and go to the bathroom. - stat CT of abdomen pelvis ordered to rule out deep wound infection - based on gram stain showing growth of 1+ E coli, antibiotic coverage changed to include gram negatives to Levaquin 500mg daily x 7 days - Patient warned about signs of deeper infection and if experiencing fever, nausea, sharp abdominal pain, inability to tolerate PO to ER immediately - she can always come back to see us in walkin or sick visit as well Assessment & Plan (04/22/2024 4:24 PM EDT): Phone call into surgical team to see pt sooner, pt and daughter endorse increased pain redness and exudate since completing abx, will reorder. 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 04/11/2024 Mass of soft tissue of right upper extremity Post-surgical hypothyroidism 04/11/2024 Right wrist pain 04/11/2024 S/P appendectomy 04/11/2024 Tubular adenoma of colon 04/11/2024 Missing teeth, acquired 03/30/2024 Asthma 09/22/2023 09/22/2023 Gastroesophageal reflux disease 09/22/2023 09/22/2023 Seasonal allergic rhinitis 02/19/2023 Dental plaque 02/04/2023 Gingival recession, localized 02/04/2023 Chronic low back pain 09/15/2022 Urinary incontinence 09/15/2022 Papillary thyroid carcinoma 01/15/2021 Overview (02/19/2023): S/p R thyroidectomy Nonproliferative diabetic retinopathy 01/17/2019 Overview (02/09/2024): Follows at [facility] Diabetic 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 11/17/2017 Hypertension 10/04/2017 Diabetes mellitus 10/04/2017 Resolved Problems Problem Noted Date Diagnosed Date Resolved Date Diabetic neuropathy 09/22/2023 09/22/2023 12/24/19 Extrinsic asthma without complication 02/19/2023 12/24/2023 Thyroid nodule 09/15/2022 02/19/2023 Encounters Date Type Department Care Team Description 11/16/2024 2:20 PM EST Office Visit [facility] [address] [place] [address] Chronic bilateral low back pain, unspecified whether sciatica present (Primary Dx); Vomiting in adult 11/16/2024 Orders Only GENERIC EXTERNAL DATA DEPARTMENT Provider, Generic External Data 11/09/2024 Travel 10/27/2024 Telephone [facility] [address] [place] [address] Vanna Cash [place] December Recall 10/19/2024 Refill [facility] [address] [place] [phone] Name, MD Roel Papillary thyroid carcinoma ([facility]/HCC) 09/06/2024 2:00 PM EST [facility] [address] [place] [address] Bonnie Payne MD Hordeolum externum of right upper eyelid (Primary Dx) 08/28/2024 Refill [facility] [address] [place] [address] Name, MD Roel Essential hypertension 08/23/2024 Refill [facility] [address] [place] [address] Name, MD Roel Essential hypertension 08/21/2024 Orders Only [facility] External Provider, [facility] from Last 3 Months Immunizations Name Administration Dates Next Due Influenza Injectable Quadriv alant Preservative Free IIV4 MDCK 06/17/2023,07/31/2020 Influenza injectable quadriv alent IIV4 with preservative 07/13/2019,08/17/2018,08/31/2017 Influenza injectable quadriv alent preservative free 07/08/2022,08/06/2021 Influenza, seasonal, injecta ble, preservative free 06/27/2024 Khanh SARS-CoV-2 Vaccination 01/25/2021 Pfizer Covid-19 Vaccine 12+ 07/07/2024,1 ,03/02/2022,08/26 Pfizer Covid-19 Vaccine 12+ Bivalent 11/04/2022 Pfizer Covid-19 Vaccine 12+ tamar-sucrose ([place] Cap) 03/02/2022 Pneumococcal Conjugate PCV 20 09/22/2023 Pneumococcal Polysaccharide PPSV23 11/17/2017 Tdap 10/04/2017 Zoster, Recombinant 03/17/2022,01/05/2022 Social History Tobacco Use Types Packs/Day Years Used Date Smoking Tobacco: Never Passive Smoke Exposure: Past Smokeless Tobacco: Never Tobacco Cessation:Counseling Given: Not Answered Alcohol Use Standard Drinks/Week Comments Never 0 [...] Orientation Straight 08/17/2022 10 :32 AM EDT Last Filed Vital Signs Vital Sign Reading Time Taken Comments Blood Pressure 139/82 11/16/2024 1:56 PM EST Pulse 88 11/16/2024 1:56 PM EST Temperature 36.6 ??C (97.9 ??F) 11/16/2024 1:56 PM ES T Respiratory Rate 16 11/16/2024 1:56 PM EST Oxygen Saturation 97% 11/16/2024 1:56 PM EST Inhaled Oxygen Concentration - - Weight 63.5 kg (140 lb) 11/16/2024 1:56 PM EST Height 157.5 cm (5' 2 ) 09/06/2024 2:18 PM EST Body Mass Index 25.61 09/06/2024 2:18 PM EST Plan of Treatment Upcoming Encounters Date Type Department Care Team (Late st Contact Info) Description 11/30/2024 10:30 AM EST Office Visit [facility] [address] [place] [address] Name, MD Role [address] [place] [address] 12/14/2024 3:30 PM EST Office Visit [facility] [address] [place] [address] Rosa M Sims, OD [address] [place] [address] Health Maintenance Due Date Last Done Comments CT Colonography 1965 FIT DNA/Cologuard 1965 FIT 1965 FOBT 1965 HIV Screening 1965 Sigmoidoscopy 1965 Colonoscopy 11/14/2023 11/14/2018 Colorectal Cancer Screening 11/14/2023 Diabetes: Urine Protein Screening 02/27/2024 02/26/2023, 01/01/2022, 11/27/2021, Additional history exists Lipid Panel 02/27/2024 02/26/2023, 10/0 03/2022, 11/27/2021, Additional history exists RSV Patients and Patients Aged 60 years or older (1 - Risk 60-74 years 1-dose series) 2024 Dental Prophylaxis 09/30/2024 03/30/2024, 02/04/2023 Diabetes: Hemoglobin A1C 10/06/2024 024, 04/03/2024, 12/31/2023, Additional history exists Dental Oral Exam 11/30/2024 05/29/2024, 07/17/2022 Depression Screening 12/30/2024 12/31/2023, 12/31/19 Diabetes: Foot Exam 12/30/2024 12/31/2023, 12/31/2023, 12/31/2023, Additional history exists Eye Exam 01/04/2025 01/05/2024, 12/17, 01/05/2024, Additional history exists Dental X-Ray: Bitewings 03/31/2025 03/30/2024, 12/16 SDOH Screening 04/03/2025 04/03/2024 Alcohol/Substance Use Screening 04/17/2025 04/17/2024 Tobacco Screening 09/06/2025 09/06/2024 Mammogram 03/23/2026 03/23/2024, 02/17, 03/16/2023, Additional history exists Dental X-Ray: Full Mouth 03/31/2027 03/30/2024, 10/18 DTaP/Tdap/Td Vaccines (2 - Td or Tdap) 10/04/2027 10/04/2017 Cervical Cancer Screening 01/14/2028 HPV/Cotest 01/14/2028 01/13/2023, 11/30/2019 Pap Smear 01/14/2028 01/13/2023 Zoster Vaccines Completed 03/17/2022, 01/05/2022 Pneumococcal Vaccine: 50+ Years Completed 09/22/2023, 11/17/2017 Hepatitis C Screening Completed 04/17/2024 Influenza Vaccine Completed 06/27/2024, , 07/08/2022, Additional history exists COVID-19 Vaccine Completed 07/07/2024, 12/2022, 11/04/2022, Additional history exists HIB Vaccines Aged Out No longer eligi ble based on patient's age to complete this topic HPV Vaccines Aged Out No longer eligi ble based on patient's age to complete this topic Hepatitis A Vaccines Aged Out No long er eligible based on patient's age to complete this topic Hepatitis B Vaccines Aged Out No long er eligible based on patient's age to complete this topic IPV Vaccines Aged Out No longer eligi ble based on patient's age to complete this topic Meningococcal Vaccine Aged Out No ortiz rhonda eligible based on patient's age to complete this topic RSV under 20 months Aged Out No longe r eligible based on patient's age to complete this topic Rotavirus Vaccines Aged Out No longer eligible based on patient's age to complete this topic Procedures Procedure Name Priority Date/Time Associated Diagnosis Comments POCT INFLUENZA B (ID NOW RAPID MOLECULAR) Routine 11/16/2024 2:01 PM EST Vomiting in adult POCT INFLUENZA A (ID NOW RAPID MOLECULAR) Routine 11/16/2024 2:01 PM EST Vomiting in adult POCT RAPID COVID ANTIGEN Routine 11/16/2024 1:58 PM EST Vomiting in adult GLUCOSE, WHOLE BLOOD Routine 11/16/2024 11:47 AM EST MR SHOULDER WO CONTRAST LEFT Routine 08/21/2024 7:04 PM EST POCT GLYCATED HEMOGLOBIN, TOTAL Routine 07/07/2024 2:05 PM EDT Diabetic 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 associated with type 2 diabetes mellitus (CMS/HCC) PERIODIC ORAL EVALUATION - ESTABLISHED PATIENT Routine 05/29/2024 9:30 AM EDT Encounter for dental examination Ill-fitting dentures HEPATITIS C AB W/REFL TO HCV RNA, QN, PCR Routine 04/17/2024 11:32 AM EDT Need for hepatitis C screening test PROPHYLAXIS - ADULT Routine 03/30/2024 1 :00 PM EDT Dental plaque DIAGNOSTIC - DIAGNOSTIC IMAGING - INTRAORAL - COMPREHENSIVE SERIES OF RADIOGRAPHIC IMAGES Routine 03/30/2024 1:00 PM EDT Dental plaque Missing teeth, acquired Gingival recession, localized BI MAMMOGRAM SCREENING TOMOSYNTHESIS BILATERAL Routine 03/23/2024 2:50 PM EDT ALBUMIN, RANDOM URINE W/CREATININE Routine 02/26/2023 8:39 AM EDT Type 2 diabetes mellitus with other specified complication, with long-term current use of insulin ([facility]) Hypertension, unspecified type LIPID PANEL, STANDARD Routine 02/26/2023 8:39 AM EDT Type 2 diabetes mellitus with other specified complication, with long-term current use of insulin ([facility]) Hypertension, unspecified type IMAGE-GUIDED PAP W/AGE BASED SCR PROTOCOLS Routine 01/13/2023 11:48 AM EDT Cervical cancer screening HM COLONOSCOPY Routine 11/14/2018 4:17 PM EST from Last 3 Months or Most Recently Relevant to Health Maintenance Results * Influenza B (ID NOW Rapid Molecular) (11/16/2024 2:01 PM EST) Influenza B Negative Negative, Indeterminate [facility] Swab 11/16/2024 2:01 PM EST us Dang Mccormick NP POINT OF CARE TEST ENTER/EDIT O RDERABLES Final Result [facility] [address] [place] [phone] * Influenza A (ID NOW Rapid Molecular) (11/16/2024 2:01 PM EST) Influenza A Negative Negative, Indeterminate [facility] Swab 11/16/2024 2:01 PM EST us Dang Mccormick NP POINT OF CARE TEST ENTER/EDIT O RDERABLES Final Result Performing Organization Address [facility] de Phone Number [facility] [address] [place] [address] [phone] * POCT Rapid COVID Ag (11/16/2024 1:58 PM EST) Rapid COVID Ag Negative Swab 11/16/2024 1:58 PM EST Dang Mccormick [facility]ISTR[facility] POINT OF CARE TEST ENTER/EDIT O RDERABLES Final Result * Glucose, Whole Blood (11/16/2024 11:47 AM EST) [facility] Glucose, Whole Blood 113 60 - 115 mg/dL [facility] Comment:METER #: [id number] 5Testing performed in the Endocrinology Department [address] , [address], [facility]. 11/16/2024 11:4 7 AM EST 11/16/2024 11:51 AM EST Generic External Data Provider LAB BLOOD ORDERAB LES Final Result Performing Organization Address [facility] de Phone Number [facility] [address] [place] [address] [phone] * MR Shoulder w/o Contrast Left (08/21/2024 7:04 PM EST) Anatomical Region Laterality Modality Upper Extremities, Shoulder Left Magn etic Resonance 08/21/2024 7:04 PM EST Narrative 09/08/2024 1:21 PM EST ? [facility] ?[address] ?[place] [address] ? Magnetic Resonance Report ? Signed ? Patient: Valero Guzman,Gilda ?MR#: M ?? [id number] ? : 1965 ?Acct:[id number] ? Age/Sex: 59 / F ?ADM Date: 11/04/24 ? Loc: HO.MRI ? Attending Dr: Freedom uHggins MD ? Ordering Physician: Freedom Huggins MD ?? Date of Service: 08/21/24 ?? Procedure(s): MR shoulder LT wo con ?? Accession Number(s): [id number] ? cc: Name,Roel ORTEGA; Freedom Huggins MD ? EXAMINATION: ?? MR SHOULDER WITHOUT CONTRAST, LEFT ? CLINICAL INFORMATION: ?? Left shoulder pain. ? COMPARISON: ?? Left shoulder radiograph dated 08/08/2024. ? TECHNIQUE: ?? MRI of the shoulder without contrast was performed on a high-field ?? scanner. ? FINDINGS: ? ROTATOR CUFF: Mild-moderate supraspinatus, infraspinatus, and ?? subscapularis tendinosis. Distal subscapularis articular surface ?? partial tearing measuring up to 2.3 cm in ML dimension. No ?? full-thickness rotator cuff tendon tear. No muscle atrophy or fatty ?? infiltration. ? BICEPS: Fluid within the proximal long head biceps tendon sheath which ?? may be related to the trace joint effusion or indicate mild ?? tenosynovitis. Intra-articular tendinosis. No transverse tendon tear or ?? tendon retraction. ? CORACOACROMIAL ARCH: The undersurface of the acromion is flat with mild ?? lateral downsloping. Moderate acromioclavicular osteoarthritis with ?? capsular edema. Trace fluid and edema within the subacromial subdeltoid ?? bursa, consistent with minimal bursitis. ? LABRUM/CAPSULE: No displaced labral tear. Intact inferior joint ?? capsule. ? GLENOHUMERAL JOINT/MARROW: Intact articular cartilage. No acute osseous ?? injury. Trace glenohumeral joint effusion. ? MR/MR shoulder LT wo con ?? IMPRESSION: ?? 1. Mild-moderate supraspinatus, infraspinatus, and subscapularis ?? tendinosis. Distal subscapularis articular surface partial tearing ?? measuring 2.3 cm in ML dimension. No full-thickness rotator cuff tendon ?? tear. ? 2. Fluid within the proximal long head biceps tendon sheath which may ?? be related to the trace joint effusion or indicate mild tenosynovitis. ?? Intra-articular tendinosis without a transverse tendon tear or tendon ?? retraction. ? 3. Moderate acromioclavicular osteoarthritis with lateral downsloping ?? of the acromion. Minimal subacromial subdeltoid bursitis. ? 4. Trace glenohumeral joint effusion. ? Electronically signed by: ??Aleks Muller MD ??09/08/2024 01:19 PM EST ?? RP ? Dictated By: ?Aleks Muller MD ? Signed By: ?<Electronically signed by Aleks Muller MD in OV> ?09/08/24 1319 ? DD/ 1904 ? TD/TT: 08/21/24 1950 ? [place]erson: SR ? Procedure Note Donotuseinterpreter, Image - 09/08/2024 [place] [address] Magnetic Resonance Report Signed Patient: Lolly Mcginnis [facility]#: M [id number] : 1965Acct:[id number] Age/Sex: 59 / FADM Date: 08/21/24 Loc: HO.MRI Attending Dr: Freedom Huggins MD Ordering Physician: Freedom Huggins MD Date of Service: 08/21/24 Procedure(s): MR shoulder LT wo con Accession Number(s): [id number] cc: Name,Roel ORTEGA; Freedom Huggins MD EXAMINATION: MR SHOULDER WITHOUT CONTRAST, LEFT CLINICAL INFORMATION: Left shoulder pain. COMPARISON: Left shoulder radiograph dated 08/08/2024. TECHNIQUE: MRI of the shoulder without contrast was performed on a high-field scanner. FINDINGS: ROTATOR CUFF: Mild-moderate supraspinatus, infraspinatus, and subscapularis tendinosis. Distal subscapularis articular surface partial tearing measuring up to 2.3 cm in ML dimension. No full-thickness rotator cuff tendon tear. No muscle atrophy or fatty infiltration. BICEPS: Fluid within the proximal long head biceps tendon sheath which may be related to the trace joint effusion or indicate mild tenosynovitis. Intra-articular tendinosis. No transverse tendon tear or tendon retraction. CORACOACROMIAL ARCH: The undersurface of the acromion is flat with mild lateral downsloping. Moderate acromioclavicular osteoarthritis with capsular edema. Trace fluid and edema within the subacromial subdeltoid bursa, consistent with minimal bursitis. LABRUM/CAPSULE: No displaced labral tear. Intact inferior joint capsule. GLENOHUMERAL JOINT/MARROW: Intact articular cartilage. No acute osseous injury. Trace glenohumeral joint effusion. MR/MR shoulder LT wo con IMPRESSION: 1. Mild-moderate supraspinatus, infraspinatus, and subscapularis tendinosis. Distal subscapularis articular surface partial tearing measuring 2.3 cm in ML dimension. No full-thickness rotator cuff tendon tear. 2. Fluid within the proximal long head biceps tendon sheath which may be related to the trace joint effusion or indicate mild tenosynovitis. Intra-articular tendinosis without a transverse tendon tear or tendon retraction. 3. Moderate acromioclavicular osteoarthritis with lateral downsloping of the acromion. Minimal subacromial subdeltoid bursitis. 4. Trace glenohumeral joint effusion. Electronically signed by: Aleks Muller MD 09/08/2024 01:19 PM [facility] Workstation: [id number] Dictated By: Aleks Muller MD Signed By: <Electronically signed by Aleks Muller MD in OV> 09/08/24 1319 DD/ 1904 TD/TT: 08/21/24 1950 [place]: [facility] External Provider IMG MRI PROCEDURES Final Result * (ABNORMAL) POCT HGB A1C (07/07/2024 2:05 PM EDT) Pathologist [facility] Hemoglobin A1C 7.1(A) 4.0 - 6.0 % QC Media Lot # [id number] Lot# Expiration Date [id number] Blood 07/07/2024 2:05 PM EDT [facility] POINT OF CARE TEST ENTER/EDIT OR DERABLES Final Result * Hepatitis C Antibody with Reflex to HCV, RNA, Quantitative, Real-Time PCR (04/17/2024 11:32 AM EDT) Hepatitis C Antibody Nonreactive Nonreactive [facility] Comment:Antibodies to HCV no t detected; does not exclude early acuteHCV infection. Blood Venous blood specimen / Unknown 04/17/2024 11:32 AM EDT 04/17/2024 1:13 PM EDT us Roel Pranav ORTEGA LAB BLOOD ORDERABLES Final Resul t [facility] [address] [facility] [address] [phone] * BI Mammogram Screening Tomosynthesis Bilateral (03/23/2024 2:50 PM EDT) Anatomical Region Laterality Modality Breast Bilateral Mammography 03/23/2024 2:50 PM EDT Narrative 04/18/2024 8:48 AM EDT ? [facility] ? [address] ?[place] [id number] ? Mammography Report ? Signed ? Patient: Lolly Mcginnis ?MR#: M ?? [id number] ? : 1965 ?Acct:[id number] ? Age/Sex: 59 / F ?ADM Date: 03/23/ ? Loc: HO.MAMMO ? Attending Dr: Roel Name MD ? Ordering Physician: Name,Roel MD ?Results: 1Negative ? Date of Service: 03/23/24 ?Follow Up: 1 Year From Orig ?? inal Mammogram ? Procedure(s): MM tomosynthesis screening BI ?? Accession Number(s): [id number] ? cc: Name,Roel ORTEGA ? EXAMINATION: ?? MM SCREENING DIGITAL BREAST TOMOSYNTHESIS, BILATERAL ? CLINICAL INFORMATION: ? Screening. Asymptomatic. ? COMPARISON: ?? Mammography: This study is compared with prior exams dating back to ?? 2019. ? TECHNIQUE: ?? Digital breast tomosynthesis is performed in both the craniocaudal and ?? mediolateral oblique views along with computer-aided detection (CAD). ?? Synthesized 2D images are generated from the tomosynthesis. ? FINDINGS: ?? There are scattered areas of fibroglandular density (ACR BI-RADS breast ?? composition Category b). ? There are no significant masses, abnormal calcifications, or other ?? abnormalities. ? MM/MM tomosynthesis screening BI ?? IMPRESSION: ?? No mammographic evidence of malignancy. ? ASSESSMENT: ? BI-RADS BI-RADS 1 - Negative ? RECOMMENDATION: ?? Routine annual mammography screening. ? 1 year F/U ? This examination should not preclude the clinical evaluation of a ?? suspicious palpable abnormality. ? This patient's information was entered into a reminder system with a ?? target due date for their next mammogram. ? Dictated By: ?Aida Rich MD ? Signed By: ?<Electronically signed by Aida Rich MD in OV> ? 04/18/24 0844 ? DD/ 1450 ? TD/TT: ? Newsperson: ? Procedure Note Bryant, Kike - 04/18/2024 [facility] [address] [place] [address] [place] [address] Mammography Report Signed Patient: Lolly Mcginnis MMR#: [id number] : 1965Acct:[id number] Age/Sex: 59 / FADM Date: 03/23/24 Loc: PREET Attending DrFeng Rock MD Ordering Physician: Roel Rockesults: 1Negative Date of Service: 03/23/24Follow Up: 1 Year From Orig inal Mammogram Procedure(s): MM tomosynthesis screening BI Accession Number(s): [id number] cc: NameRoel MD EXAMINATION: MM SCREENING DIGITAL BREAST TOMOSYNTHESIS, BILATERAL CLINICAL INFORMATION: Screening. Asymptomatic. COMPARISON: Mammography: This study is compared with prior exams dating back to 2019. TECHNIQUE: Digital breast tomosynthesis is performed in both the craniocaudal and mediolateral oblique views along with computer-aided detection (CAD). Synthesized 2D images are generated from the tomosynthesis. FINDINGS: There are scattered areas of fibroglandular density (ACR BI-RADS breast composition Category b). There are no significant masses, abnormal calcifications, or other abnormalities. MM/MM tomosynthesis screening BI IMPRESSION: No mammographic evidence of malignancy. ASSESSMENT: BI-RADS BI-RADS 1 - Negative RECOMMENDATION: Routine annual mammography screening. 1 year F/U This examination should not preclude the clinical evaluation of a suspicious palpable abnormality. This patient's information was entered into a reminder system with a target due date for their next mammogram. Dictated By: Aida Rich MD Signed By: <Electronically signed by Aida Rich MD in OV> 04/18/24 0844 DD/ 1450 TD/TT: Newsperson: Roel Rock MD [facility] [place] BI PROCEDURES Edited Result - Final * Albumin, Random Urine W/Creatinine (02/26/2023 8:39 AM EDT) Creatinine, Random Urine 142 20 - 275 mg/dL [facility] Albumin, Urine 1.9 See Note: mg/dL [facility] Comment: Reference Range: Reference Range Not established Albumin/Creatinin e Ratio, Random Urine 13 <30 mcg/mg creat [facility] Comment: The ADA defines abnormalities in albumin excretion as follows: Albuminuria Category ?Result (mcg/mg creatinine) Normal to Mildly increased ?? <30 Moderately increased ? 30-299 Severely increased ? > OR = 300 The ADA recommends that at least two of three specimens collected within a 3-6 month period be abnormal before considering a patient to be within a diagnostic category. 02/26/2023 8:39 AM EDT 02/26/2023 8:40 AM EDT Narrative [facility] - 02/26/2023 10:35 PM EDT FASTING:YES FASTING: YES us oRel Rock MD LAB URINE ORDERABLES Final Resul t [facility] [address], [place] [address] [facility] [place] [facility] [address] [place] [address] * Lipid Panel, Standard (02/26/2023 8:39 AM EDT) Cholesterol, Total 181 <200 mg/dL [facility] HDL Cholesterol 74 > OR = 50 mg/dL [employer] Triglycerides 62 <150 mg/dL [facility] LDL Cholesterol 93 mg/dL (calc) [facility] Comment: Reference range: <100 Desirable range <100 mg/dL for primary prevention; ?? <70 mg/dL for patients with CHD or diabetic patients with > or = 2 CHD risk factors. LDL-C is now calculated using the Edmar-Brice calculation, which is a validated novel method providing better accuracy than the Friedewald equation in the estimation of LDL-C. Edmar COUCH et al. JERSON. 2013;310(19): 4282-8334 (http://education.[employer]/faq/BCX751) Chol/HDLC Ratio 2.4 <5.0 (calc) [facility] Non-HDL Cholesterol 107 <130 mg/dL (calc) [employer] Comment: For patients with diabetes plus 1 major ASCVD risk factor, treating to a non-HDL-C goal of <100 mg/dL (LDL-C of <70 mg/dL) is considered a therapeutic option. Blood Venous blood specimen / Unknown 02/26/2023 8:39 AM EDT 02/26/2023 8:40 AM EDT Narrative [facility] - 02/26/2023 10:35 PM EDT FASTING:YES FASTING: YES us Roel Rock MD LAB BLOOD ORDERABLES Final Resul t ELISABET Andrade [facility], [facility], [place] [address] [facility] [place] [facility] [address] [place] [address] * Image-Guided Pap with Age-Based Screening Protocols (01/13/2023 11:48 AM EDT) Comment [facility] Comment: This order for age-based cervical cancer and STI screening follows ACOG guidelines(PB 168, 140, VPY632). See individual assays for performing site location. Clinical Information: None given [facility] LMP: NONE GIVEN [facility] Prev. PAP: NONE GIVEN [facility] Prev. BX: NONE GIVEN [facility] SOURCE: None given [facility] Statement Of Adequacy: SATISFACTORY FOR EVALUATION [employer] Interpretation/Re sult: [facility] Comment: Negative for intraepithelial lesion or malignancy. Atrophic pattern; predominantly parabasal cells COMMENT: This Pap test has been evaluated with computer assisted technology. [facility] Motor Scooter Mechanic: Arie Materiat Comment: SXA, CT(ASCP) CT screening location: [address] ??[address] (Always Message) [facility] Comment: EXPLANATORY NOTE: The Pap is a screening test for cervical cancer. It is not a diagnostic test and is subject to false negative and false positive results. It is most reliable when a satisfactory sample, regularly obtained, is submitted with relevant clinical findings and history, and when the Pap result is evaluated along with historic and current clinical information. HPV nRNA E6/E7 Not Detected Not Detected [facility] Comment: Methodology: Respiratory Therapy Assistant-Mediated Amplification This assay detects E6/E7 viral messenger RNA (mRNA) from 14 high-risk HPV types (16,18,31,33,35,39,45,51,52,56,58,59,66,68). Cervical sources are required for HPV testing. If a vaginal source from a patient who has had a total hysterectomy with removal of cervix was submitted, please contact the testing laboratory for alternative testing options. For additional information, please refer to http://education.[employer]/faq/DPA134s8 (This link if provided for information/ educational purposes only.) Cytology specimen container (physical object) 01/13/2023 11:48 AM EDT 01/14/2023 2:03 AM EDT Erica Joseph CNM LAB BLOOD ORDERABLES Janis kaba Result [facility] [address], [place] [address] [facility] [address] [place] [address] * Colonoscopy (11/14/2018 4:17 PM EST) Colonoscopy Normal Normal Narrative Ami Giraldo - 11/14/2018 4:17 PM EST Recommended 5 year follow up Historical Provider HEALTH MAINTENANCE Final Result from Last 3 Months or Most Recently Relevant to Health Maintenance Insurance [address] [place] [address] [facility] C3 [place] AD[place] * Guarantor: Lolly Mcginnis Account Type Relation to Patient Date of Phone Billing Address Personal/Family Self [address] [place] [address] * Guarantor: Lolly Mcginnis Account Type Relation to Patient Date of Phone Billing Address Personal/Family Self [address] [place] [address] * Guarantor: Lolly Mcginnis Account Type Relation to Patient Date of Phone Billing Address Personal/Family Self [address] [place] [address] Care Teams Pig Furnace Operator Relationship Specialty Start Date End Date Name, MD Roel [address] [place] [address] [place] [address] PCP - General Family Medicine 10/04/17
--- OUTSIDE RECORDS SUMMARY | 2024-11-16 15:35 | XMS_ITS | Encounter Summary ---
Author Organization [employer] [facility] Address [address] [facility] 7t [place] [address] Care Team Providers Care Document Scanner Name Role Phone NameRoel MD Primary Care Provider [phone] Encounter Details Date Type Department Care Team (Latest Contact Info) Description 12/20/2020 Abstract [facility] CONVERSIONS Dental, Provider, DDS Social History Tobacco Use [...] 10:30 AM EST Office Visit [facility] MEDICINE [address] [place] [address] Name, MD Roel [address] [place] [address] 12/14/2024 3:30 PM EST Office Visit [facility] OPTOMETRY [address] [place], [place] [phone] Rosa M Sims, ADINA [address] [place] [address] documented as of this encounter Visit Diagnoses Not on filedocumented in this encounter Care Teams Document Scanner Relationship Specialty Start Date End Date NameRoel MD [address] [place] [address] PCP - General Family Medicine 10/04/17 documented as of this encounter
--- OUTSIDE RECORDS SUMMARY | 2024-11-16 15:35 | XMS_ITS | Encounter Summary ---
Demographics Address [address] [place] [address] [address] [place] [address] Work Phone Home Phone Mobile Phone Preferred Language es Marital Status Single Anabaptist Affiliation Unknown Race Other Race Ethnic Group or Author Organization [employer] Address [address] [place] [address] Care Team Providers Care Internal Communications Intern Name Role Phone Name, Roel ORTEGA Primary Care Provider Encounter Details Date Type Department Care Team (Late st Contact Info) Description 11/16/2024 Orders Only GENERIC EXTERNAL DATA DEPARTMENT Provider, Generic External Data Social History Tobacco Use Types Packs/Day Years [...] Description 11/30/2024 10:30 AM EST Office Visit [facility] MEDICINE [address] [place] [address] Name, MD Roel [address] [place] [address] 12/14/2024 3:30 PM EST Office Visit [facility] OPTOMETRY [address] [place] [address] Levi, Rosa M, OD [address] [place] [address] documented as of this encounter Procedures Procedure Name Priority Date/Time Associated Diagnosis Comments GLUCOSE, WHOLE BLOOD Routine 11/16/2024 11:47 AM EST documented in this encounter Results * Glucose, Whole Blood (11/16/2024 11:47 AM EST) Glucose, Whole Blood 113 60 - 115 mg/dL [facility] Comment:METER #: [id number] 5Testing performed in the Endocrinology Department [address] , [address], [facility]. 11/16/2024 11:4 7 AM EST 11/16/2024 11:51 AM EST us Generic External Data Provider LAB BLOOD ORDERAB LES Final Result [facility] [address] [place] [address] [phone] documented in this encounter Visit Diagnoses Not on filedocumented in this encounter Additional Health Concerns Assessment Noted Time PHQ-9 Depression Total Score: 0 12/31/19 24 10:54 AM EDT documented as of this encounter Care Teams Internal Communications Intern Relationship Specialty Start Date End Date Name, MD Roel [address] [place] [address] PCP - General Family Medicine 10/04/17 documented as of this encounter
== END 2024-11-16 12:03 | disposition home or self-care (01) ==
PROVIDERS: PCP Internal Medicine Geriatric Medicine; Visit Provider Internal Medicine
DX: E11.319 Type 2 diabetes mellitus with unspecified diabetic retinopathy without macular edema (principal)

== ENCOUNTER → 2024-11-16 11:38 | Outpatient (BNVA) | payer MEDICAID, SELFPAY | PROVIDERS: PCP Internal Medicine Geriatric Medicine; Visit Provider Internal Medicine | DX: E11.319 Type 2 diabetes mellitus with unspecified diabetic retinopathy without macular edema (principal); I10 Essential (primary) hypertension; E78.5 Hyperlipidemia, unspecified | CPT/HCPCS: 82947; 83036; 99212 ==

== ENCOUNTER 2024-12-19 09:31 | Outpatient (AMB) | payer MEDICAID, SELFPAY ==
[2024-12-19 09:34] VITALS: BMI 25.2
--- NOTE | 2024-12-19 09:34 | MHC.OFFVIS ---
Vital Signs 12/19/24 09:34 Height 5 ft 2 in Weight 138 lb BMI 25.2 Intake Visit Reasons: Left shoulder pain and stiffness Intake Note: Lolly is a 59 year old right hand dominant female who presents with complaints of progressively worsening left shoulder pain and stiffness. The patient describes her pain as sharp and severe in nature. Most of the pain is along lateral aspect of her left shoulder. She denies any weakness. She does report difficulty lifting her left hand above shoulder height. Her symptoms have gotten worse over the last year in spite of continued non operative treatments. She has done physical therapy exercises which aggravated her pain. She has also tried Tylenol and anti-inflammatory medicines which gave her minimal relief. She denies any numbness or tingling in either upper extremity. Allergies metformin Adverse Reaction (Mild, Verified 12/19/24 09:34) stomach upset Medication List - Last Reconciled 12/19/24 by Freedom Huggins MD acetaminophen 500 mg PO Q6H PRN amlodipine 5 mg PO DAILY aspirin (Adult Low Dose Aspirin) 81 mg PO DAILY cholecalciferol (vitamin D3) (Vitamin D3) 50 mcg PO DAILY dicyclomine 20 mg PO .TIDAC 30 days docusate sodium (Colace) 100 mg PO BID PRN dulaglutide (Trulicity) 3 mg (0.5 mL) subcut QWEEK empagliflozin (Jardiance) 25 mg PO QAM enalapril maleate 20 mg PO BEDTIME flash glucose scanning reader (FreeStyle Rama 2 [place]) As directed flash glucose sensor (FreeStyle Rama 2 Sensor kit) As directed change every 2 weeks FreeStyle Lancets (lancets) four times daily NS FreeStyle Lite Meter (blood-glucose meter) As directed NS FreeStyle Lite Strips (blood sugar diagnostic) TEST BLOOD SUGAR FOUR TIMES DAILY NS gabapentin 300 mg PO BEDTIME hydrochlorothiazide 12.5 mg PO DAILY hydroxychloroquine 200 mg PO BID ibuprofen 600 mg PO Q8H PRN ibuprofen 800 mg PO TID PRN insulin aspart U-100 4 units small meals, 8 medium meals and 10 units large meals, + 2 units for bg over 200 subcut 3 times a day; subcut 3 times a day; 30 days insulin glargine U-300 conc (Toujeo Max U-300 SoloStar) 30 units (0.1 mL) subcut BEDTIME levothyroxine 88 mcg PO DAILY 90 days metformin 1/2 tablet PO daily; mirabegron ER (Myrbetriq) 25 mg PO DAILY montelukast 10 mg PO BEDTIME omeprazole 20 mg PO QAM ondansetron 4 mg PO Q6-8H PRN pen needle, diabetic (BD Ultra-Fine Sandy Pen Needle) USE DIRECTED FOUR TIMES DAILY pioglitazone 30 mg PO QAM pravastatin 20 mg PO BEDTIME sennosides (senna) 17.2 mg (2 x 8.6 mg) PO BEDTIME sertraline 100 mg PO QAM trazodone 100 mg PO BEDTIME PRN PFSH Medical History Diabetic retinopathy associated with type 2 diabetes mellitus Diabetic 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 associated with type 2 diabetes mellitus detention (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 of 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 Mother Diabetes mellitus Daughter Diabetes mellitus Social History Household Members: Family Housing: House Do you presently have visiting nurse or other home services: No Alcohol intake: current Alcohol intake frequency: does not drink Comment: rings appropriately Patient Tobacco Use Status: Never used Tobacco Second Hand Smoke Exposure: No service: No Current occupational status: disabled Current occupation: right handed Female Reproductive History Menstrual Age of Menarche: 8 Physical Exam Vital Signs: BMI result Body Mass Index 25.2 Const Other: Well-nourished well-developed very friendly female awake alert and oriented x3 in no acute distress Extrem Other: Bilateral upper extremity examination shows good capillary refill, no skin lesions noted, normal sensation light touch Left shoulder examination shows decreased active and passive range of motion when compared to her right shoulder, 4+ out of 5 strength with supraspinatus testing, positive impingement signs, tenderness over her acromioclavicular joint, no instability Assessment & Plan Assessment & Plan (1) Impingement syndrome of left shoulder: Code(s): M75.42 - Impingement syndrome of left shoulder Category: Medical Plan Ms. Anjum Hinds presents with progressively worsening left shoulder pain and stiffness due to impingement syndrome, acromioclavicular joint arthritis and adhesive capsulitis. I had a lengthy discussion with the patient regarding the treatment options. At this point she has failed continued non operative treatments. The risks and benefits of left shoulder arthroscopic surgery were discussed at length with the patient. The patient wishes to proceed with surgery. Surgery will most likely involve left shoulder diagnostic arthroscopy with distal clavicle excision, acromioplasty, capsular release and manipulation under anesthesia. The patient will be scheduled for next available date. She will follow-up as instructed. Feel free to call me at any time should questions regarding her orthopedic management arise. I spent 21 minutes in reviewing the patient's records and imaging studies, seeing the patient and documenting in the medical record. Coding Level of Care Code Est Pt Level 3 (28361) Complex EM visit Add On G2211 Diagnoses Impingement syndrome of left shoulder M75.42
--- OUTSIDE RECORDS SUMMARY | 2024-12-19 10:39 | XMS_ITS | Encounter Summary ---
Author Organization [facility] [facility] Address [address] [facility] 7t [place] [address] Care Team Providers Care Recoater Name Role Phone Name, Roel ORTEGA Primary Care Provider [phone] Encounter Details Date Type Department Care Team (Late st Contact Info) Description 03/19/2023 Abstract [facility] MEDICINE [address] [place] [address] Name, MD Roel [address] [place] [address] Social History Tobacco Use Types Packs/Day Years [...] Department Care Team (Late Contact Info) Description 03/05/2025 1:45 PM EDT Office Visit [facility] MEDICINE [address] [place] [address] Name, MD Roel [address] [place] [address] documented as of this encounter Visit Diagnoses Not on filedocumented in this encounter Additional Health Concerns Assessment Noted Time PHQ-9 Depression Total Score: 0 11/03/19 23 8:54 AM EST documented as of this encounter Care Teams Recoater Relationship Specialty Start Date End Date Name, MD Roel [address] [place] [address] PCP - General Family Medicine 10/04/17 documented as of this encounter
--- OUTSIDE RECORDS SUMMARY | 2024-12-19 10:39 | XMS_ITS | Encounter Summary ---
Author Organization [employer] Address [address] [facility] 7t [place] [address] Care Team Providers Care Solid Glass Rod Dowel Machine Operator Name Role Phone Name, Roel ORTEGA Primary Care Provider [phone] Reason for Visit * Reason Comments Med Refill Encounter Details Date Type Department Care Team ([facility] st Contact Info) Description 06/05/2024 Refill [facility] MEDICINE [address] [place], [place] [phone] Name, MD Roel [address] [place] [address] Essential hypertension Social History Tobacco Use Types [...] Care Team (Late st Contact Info) Description 03/05/2025 1:45 PM EDT Office Visit [facility] MEDICINE [address] [place] [address] Name, MD Roel [address] [place] [address] documented as of this encounter Visit Diagnoses Diagnosis Essential hypertension Unspecified essential hypertension documented in this encounter Additional Health Concerns Assessment Noted Time PHQ-9 Depression Total Score: 0 12/31/19 24 10:54 AM EDT documented as of this encounter Care Teams Solid Glass Rod Dowel Machine Operator Relationship Specialty Start Date End Date NameRoel MD [address] [place] [address] PCP - General Family Medicine 10/04/17 documented as of this encounter
--- OUTSIDE RECORDS SUMMARY | 2024-12-19 10:39 | XMS_ITS | Encounter Summary ---
Author Organization [employer] Address [address] [facility] 7t [place] [address] Care Team Providers Care Recoater Name Role Phone Name, Roel ORTEGA Primary Care Provider [phone] Reason for Visit * Reason Onset Date Comments Results 04/19/2024 Encounter Details Date Type Department Care Team ([facility] st Contact Info) Description 04/19/2024 Telephone [facility] MEDICINE [address] [place], [place] [phone] Name, MD Roel [address] [place] [address] Results Social History Tobacco Use Types Packs/Day [...] Description 03/05/2025 1:45 PM EDT Office Visit [facility] MEDICINE [address] [place] [address] Name, MD Roel [address] [place] [address] documented as of this encounter Visit Diagnoses Not on filedocumented in this encounter Additional Health Concerns Assessment Noted Time PHQ-9 Depression Total Score: 0 12/31/19 24 10:54 AM EDT documented as of this encounter Care Teams Recoater Relationship Specialty Start Date End Date Name, MD Roel [address] [place] [address] PCP - General Family Medicine 10/04/17 documented as of this encounter
--- OUTSIDE RECORDS SUMMARY | 2024-12-19 10:39 | XMS_ITS | Encounter Summary ---
Author Organization [facility] Address [address] [facility] 7t [place] [address] Care Team Providers Care Ux Designer Name Role Phone Name, Roel ORTEGA Primary Care Provider Encounter Details Date Type Department Care Team (Late st Contact Info) Description 03/18/2023 Abstract [facility] MEDICINE [address] [place] [address] Name, MD Roel [address] [place] [address] Social History Tobacco Use Types Packs/Day Years [...] 03/05/2025 1:45 PM EDT Office Visit [facility] MEDICINE [address] [place] [address] Name, MD Roel [address] [place] [address] documented as of this encounter Procedures Procedure Name Priority Date/Time Associated Diagnosis Comments COLONOSCOPY Routine 11/14/2018 4:17 PM EST documented in this encounter Results * Colonoscopy (11/14/2018 4:17 PM EST) Colonoscopy Normal Normal Narrative Ami Giraldo - 11/14/2018 4:17 PM EST Recommended 5 year follow up us Historical Provider HEALTH MAINTENANCE Final Result documented in this encounter Visit Diagnoses Not on filedocumented in this encounter Additional Health Concerns Assessment Noted Time PHQ-9 Depression Total Score: 0 11/03/19 23 8:54 AM EST documented as of this encounter Care Teams Ux Designer Relationship Specialty Start Date End Date Name, [place] [address] PCP - General Family Medicine 10/04/17 documented as of this encounter
--- OUTSIDE RECORDS SUMMARY | 2024-12-19 10:39 | XMS_ITS | Encounter Summary ---
Author Organization [employer] [facility] Address [address] [facility] 7[address] [place] [address] Care Team Providers Care Rug Designer Name Role Phone Name, Roel ORTEGA Primary Care Provider [phone] Encounter Details Date Type Department Care Team (Late st Contact Info) Description 12/18/2022 Abstract [facility] [address] [place] [address] Najma Interiano, DDS [address] [place] [address] Social History Tobacco Use Types Packs/Day Years [...] Description 03/05/2025 1:45 PM EDT Office Visit [facility] [address] [place] [address] Name, MD Roel [address] [place] [address] documented as of this encounter Visit Diagnoses Not on filedocumented in this encounter Additional Health Concerns Assessment Noted Time PHQ-9 Depression Total Score: 0 11/03/19 23 8:54 AM EST documented as of this encounter Care Teams Rug Designer Relationship Specialty Start Date End Date Name, MD Roel [address] [place] [address] PCP - General Family Medicine 10/04/17 documented as of this encounter
--- OUTSIDE RECORDS SUMMARY | 2024-12-19 10:40 | XMS_ITS | Encounter Summary ---
Demographics Address [address] [place] [address] [address] [place] [address] Work Phone Home Phone Mobile Phone Preferred Language es Marital Status Single Gnosticism Affiliation Unknown Race Other Race Ethnic Group or Author Organization [employer] Address [address] [facility] [address] [place] [address] Care Team Providers Care Health Commissioner Name Role Phone Name, Roel ORTEGA Primary Care Provider [phone] Encounter Details Date Type Department Care Team (Latest Contact Info) Description 11/30/2024 Travel Social History Tobacco Use Types Packs/Day [...] 03/05/2025 1:45 PM EDT Office Visit [facility] [address] [place] [address] Name, MD Roel [address] [place] [address] documented as of this encounter Visit Diagnoses Not on filedocumented in this encounter Additional Health Concerns Assessment Noted Time PHQ-9 Depression Total Score: 0 12/31/19 24 10:54 AM EDT documented as of this encounter Care Teams Health Commissioner Relationship Specialty Start Date End Date NameRoel MD [address] [place] [address] PCP - General Family Medicine 10/04/17 documented as of this encounter
--- OUTSIDE RECORDS SUMMARY | 2024-12-19 10:40 | XMS_ITS | Encounter Summary ---
Author Organization [employer] Address [address] [facility] 7t [place] [address] Care Team Providers Care Correctional Lieutenant Name Role Phone Name, Roel ORTEGA Primary Care Provider [phone] Reason for Visit * Reason Comments Follow-up Encounter Details Date Type Department Care Team ([facility] st Contact Info) Description 11/30/2024 10:30 AM EST Office Visit [facility] [address] [place], [place] [phone] Name, MD Roel [address] [place] [address] Mild persistent asthma without complication (Primary Dx); Type 2 diabetes mellitus with other specified complication, with long-term current use of insulin ([facility] Social History Tobacco Use Types Packs/Day Years [...] AM EDT documented as of this encounter Last Filed Vital Signs Vital Sign Reading Time Taken Comments Blood Pressure 142/80 11/30/2024 10:55 AM EST Pulse 88 11/30/2024 10:55 AM EST Temperature 36.4 ??C (97.6 ??F) 11/30/2024 10:[address] Respiratory Rate 20 11/30/2024 10:55 AM EST Oxygen Saturation 98% 11/30/2024 10:55 AM EST Inhaled Oxygen Concentration - - Weight 62.7 kg (138 lb 3.2 oz) 11/30/2024 10:55 AM EST Height 157.5 cm (5' 2 ) 11/30/2024 10:55 AM EST Body Mass Index 25.28 11/30/2024 10:55 AM EST documented in this encounter Progress Notes * Roel Rock, - 11/30/2024 10:30 AM EST Subjective Patient ID: Lolly Hinds is a 59 y.o. female who presents for Follow-up. Patient comes accompanied by her daughter. She has a past medical history of mild asthma. The patient complains of cough, wheezing, LIZ, persistent rhinorrhea and postnasal drip for at least a month.She does not use preventive inhaler at home. She has been using albuterol updraft at least twice a day for the past month. She is in no respiratory distress during her visit. She had nonproductive cough and congested nose. She was not wheezing and oxygen saturation is normal. She tested negative for flu and COVID at the walk-in clinic about 2 weeks ago. Her blood sugar has been well-controlled athome. She follows at [facility]. She is using her medications as prescribed. Review of Systems Constitutional: Negative for chills and fever. HENT: Positive for postnasal drip and rhinorrhea. Negative for sore throat. Respiratory: Positive for cough, shortness of breath and wheezing. Cardiovascular: Negative for chest pain, palpitations and leg swelling. Gastrointestinal: Negative for abdominal pain. Visit Vitals BP (!) 142/80 (BP Location: Left arm, Patient Position: Sitting, BP Cuff Size: Adult) Pulse 88 Temp 97.6 ??F (36.4 ??C) (Oral) Resp 20 Ht 5' 2 (1.575 m) Wt 138 lb 3.2 oz (62.7 kg) SpO2 98% BMI 25.28 kg/m?? OB Status Postmenopausal Smoking Status Never BSA 1.66 m?? Objective Physical Exam Constitutional: Appearance: Normal appearance. HENT: Nose: Congestion and rhinorrhea present. Cardiovascular: Rate and Rhythm: Normal rate and regular rhythm. Heart sounds: No murmur heard. No gallop. Pulmonary: Effort: Pulmonary effort is normal. No respiratory distress. Breath sounds: Normal breath sounds. No wheezing. Musculoskeletal: Right lower leg: No edema. Left lower leg: No edema. Neurological: Mental Status: She is alert. Latest Reference Range & Units 11/16/24 13:58 11/16/24 14:01 11/30/24 10:56 11/30/24 10:59 Glucose Blood, POC 60 - 200 mg/dL 133 Hemoglobin A1c 4.0 - 6.0 % 6.7 ! Influenza A Negative, Indeterminate Negative Influenza B Negative, Indeterminate Negative QC Media Lot # [id number] Rapid COVID Ag Negative !: Data is abnormal Lab Results Component Value Date HGBA1C 6.7 (A) 11/30/2024 HGBA1C 7.1 (A) 07/07/2024 HGBA1C 7.7 (A) 04/03/2024 HGBA1C 10.6 (A) 12/31/2023 HGBA1C 7.4 (A) 09/22/2023 HGBA1C 7.6 (A) 06/15/2023 HGBA1C 7.8 (A) 02/19/2023 HGBA1C 7.7 (A) 11/03/2022 HGBA1C 9.6 (H) 12/05/2020 Lab Results Component Value Date GLUCOSE 113 11/16/2024 NA 138 02/27/2024 K 3.7 02/27/2024 CO2 25 02/27/2024 CL 98 02/27/2024 BUN 19 (H) 02/27/2024 CREATININE 0.75 02/27/2024 Current Outpatient Medications on File Prior to Visit Medication Sig Dispense Refill acetaminophen (Tylenol) 500 MG tablet Take 2 tablets (1,000 mg) by mouth every 6 (six) hours if needed for mild pain. 40 tablet 0 albuterol (2.5 MG/3ML) 0.083% nebulizer solution Take 3 mL (2.5 mg) by nebulization every 6 (six) hours if needed for wheezing or shortness of breath. 75 mL 1 Alcohol Swabs (Alcohol Prep) 70 % pads USE THREE TIMES DAILY 100 each 11 amLODIPine (Norvasc) 5 MG tablet TAKE 1 TABLET BY MOUTH EVERY MORNING 90 tablet 1 Aspirin Adult Low Strength 81 MG EC tablet TAKE 1 TABLET BY MOUTH EVERY MORNING 90 tablet 3 atorvastatin (Lipitor) 10 MG tablet Take 1 tablet by mouth at bed time. BD Pen Needle Sandy U/F 32G X 4 MM misc USE DIRECTED FOUR TIMES DAILY Calcium Polycarbophil (fiber) 625 MG tablet Take 2 tablets by mouth at bed time. cholecalciferol (Vitamin D-3) 50 MCG (2000 UT) capsule Take 1 capsule by mouth in the morning. Continuous Glucose Sensor (FreeStyle Rama 2 Sensor) misc USE DIRECTED EVERY 2 WEEKS Diclofenac Sodium 1 % gel Apply topically every 12 (twelve) hours. dicyclomine (Bentyl) 20 MG tablet Take 20 mg by mouth before breakfast, before lunch, and before evening meal. dulaglutide (Trulicity) 0.75 MG/0.5ML solution pen-injector Inject 0.75 mg under the skin 1 (one) time per week. 4 each 11 empagliflozin (Jardiance) 25 MG Take 1 tablet by mouth at bed time. enalapril (Vasotec) 20 MG tablet TAKE 1 TABLET BY MOUTH AT BEDTIME 90 tablet 1 estradiol (Estrace) 0.1 MG/GM vaginal cream 1 g vaginally nightly x 2 weeks, then 1 g twice a week ongoing 42.5 g 2 famotidine (Pepcid) 20 MG tablet TOME MAYUR TABLETA DIARIAMENTE A LA HORA DE ACOSTARSE POR 5 VALDERRAMA gabapentin (Neurontin) 300 MG capsule Take 300 mg by mouth at bedtime. glucose blood (FREESTYLE LITE) test strip 1 strip every 8 (eight) hours. hydroCHLOROthiazide 12.5 MG tablet TAKE 1 TABLET BY MOUTH EVERY MORNING 90 tablet 0 hydrocortisone 1 % cream apply by topical route 2 times every day to the affected area(s) hydroxychloroquine (Plaquenil) 200 MG tablet Take 1 tablet by mouth at bed time. insulin aspart FlexPen (NovoLOG) 100 UNIT/ML pen INJECT SUBCUTANEOUSLY THREE TIMES DAILY DIRECTED: 4 UNITS WITH MEALS SMALL, 8 UNITS WITH MEALS MEDIANA, 10 UNITS WITH MEALS MELI AND ADDITIONAL 2UNITS IF BG>200 MG/DL 15 mL 6 insulin glargine (Toujeo SoloStar) 300 UNIT/ML injection Inject under the skin. insulin lispro (HumaLOG) 100 UNIT/ML injection INJECT 4 UNITS SUBCUTANEOUSLY BEFORE BREAKFAST AND LUNCH AND 6 UNITS BEFORE DINNER levothyroxine (Synthroid, Levoxyl) 88 MCG tablet TAKE 1 TABLET BY MOUTH EVERY MORNING 90 tablet 1 metFORMIN (Glucophage) 500 MG tablet TAKE 1/2 TABLET BY MOUTH EVERY MORNING WITH FOOD 45 tablet 1 montelukast (Singulair) 10 MG tablet TAKE 1 TABLET BY MOUTH AT BEDTIME 90 tablet 1 Myrbetriq 25 MG 24 hr tablet TAKE 1 TABLET BY MOUTH EVERY MORNING DO NOT BREAK, CRUSH, DISSOLVE OR CHEW omeprazole (PriLOSEC) [address] capsule Take 1 capsule by mouth at bed time. ondansetron (Zofran) 4 MG tablet Take 1 tablet (4 mg) by mouth every 8 (eight) hours if needed for nausea or vomiting for up to 10 doses. 10 tablet 0 pioglitazone (Actos) 30 MG tablet Take 30 mg by mouth in the morning. polyvinyl alcohol (Liquifilm Tears) 1.4 % ophthalmic solution 1 drop in each eye at least 3 times aday for burning pravastatin (Pravachol) 20 MG tablet Take 20 mg by mouth at bedtime. senna (Senokot) 8.6 MG tablet TAKE 2 TABLETS BY MOUTH AT BEDTIME FOR CONSTIPATION sertraline (Zoloft) 100 MG tablet Take 100 mg by mouth in the morning. sertraline (Zoloft) 50 MG tablet Take 1 tablet by mouth at bed time. Skin Protectants, Misc. (eucerin) cream use bid to hands and feet terbinafine (LamISIL) 1 % cream Apply topically every 12 (twelve) hours. traZODone (Desyrel) 100 MG tablet Take 1 tablet by mouth at bed time. TRUEplus Lancets 33G misc TEST BLOOD SUGAR FOUR TIMES DAILY 100 each 6 Vitamin D High Potency 25 MCG (1000 UT) capsule TAKE 2 CAPSULES BY MOUTH ONCE DAILY IN THE MORNING 180 capsule 3 [DISCONTINUED] fluticasone (Flonase) 50 MCG/ACT nasal spray USE 1-2 SPRAYS IN EACH NOSTRIL ONCE DAILY IN THE MORNING 48 g 1 [DISCONTINUED] Ventolin HFA 108 (90 Base) MCG/ACT inhaler INHALE 2 PUFFS EVERY 6 HOURS NEEDED FOR WHEEZING 18 g 2 No current facility-administered medications on file prior to visit. Assessment/Plan Diagnoses and all orders for this visit: Mild persistent asthma without complication Comments: I recommended daily use of Flonase and Arnuity. Rinse mouth after use. Continue rescue albuterol asneeded. I prescribed an MDI. He is encouraged to call if she does not feel much better by next week. Type 2 diabetes mellitus with other specified complication, with long-term current use of insulin ([facility]) Comments: Well-controlled. Continue current medications. She saw endo last month and was told she was close to goal control. Orders: - POCT Glucose - POCT HGB A1C Other orders - albuterol (Ventolin HFA) 108 (90 Base) MCG/ACT inhaler; Inhale 2 puffs every 6 (six) hours if needed for wheezing. - fluticasone furoate (Arnuity Ellipta) 100 MCG/ACT inhaler; Inhale 1 puff Once per day. Rinse mouth with water after use to reduce aftertaste and incidence of candidiasis. Do not swallow. - fluticasone (Flonase) 50 MCG/ACT nasal spray; Administer 2 sprays into each nostril Once per day.Shake gently. Before first use, prime pump. After use, clean tip and replace cap. documented in this encounter Plan of Treatment Upcoming Encounters Date Type Department Care Team (Late st Contact Info) Description 03/05/2025 1:45 PM EDT Office Visit [facility] [address] [place], [place] [phone] Roel Rock MD [address] [place] [address] documented as of this encounter Procedures Procedure Name Priority Date/Time Associated Diagnosis Comments POCT GLYCATED HEMOGLOBIN, TOTAL Routine 11/30/2024 10:59 AM EST Type 2 diabetes mellitus with other specified complication, with long-term current use of insulin ([facility]) POCT GLUCOSE Routine 11/30/2024 10:56 AM EST Type 2 diabetes mellitus with other specified complication, with long-term current use of insulin ([facility]) documented in this encounter Results * (ABNORMAL) POCT HGB A1C (11/30/2024 10:59 AM EST) Hemoglobin A1C 6.7(A) 4.0 - 6.0 % QC Media Lot # [id number] Lot# Expiration Date 92 Blood 11/30/2024 10:5 9 AM EST Roel Rock MD POINT OF CARE TEST ENTER/EDIT OR DERABLES Final Result * POCT Glucose (11/30/2024 10:56 AM EST) Glucose Blood, POC 133 60 - 200 mg/dL QC Media Lot # [id number] Lot# Expiration Date 82,625 Blood Capillary blood specimen / Unknown 11/30/2024 10:56 AM EST Roel Rock MD POINT OF CARE TEST ENTER/EDIT OR DERABLES Final Result documented in this encounter Visit Diagnoses Diagnosis Mild persistent asthma without complication- Primary Type 2 diabetes mellitus with other specified complication, with long-term current use of insulin ([facility]) documented in this encounter Additional Health Concerns Assessment Noted Time PHQ-9 Depression Total Score: 0 12/31/19 24 10:54 AM EDT documented as of this encounter Care Teams Correctional Lieutenant Relationship Specialty Start Date End Date Name, MD Roel [address] [place] [address] PCP - General Family Medicine 10/04/17 documented as of this encounter
--- OUTSIDE RECORDS SUMMARY | 2024-12-19 10:40 | XMS_ITS | Encounter Summary ---
Author Organization [employer] Address [address] [facility] 7t [place] [address] Care Team Providers Care White Sugar Boiler Name Role Phone Name, Roel ORTEGA Primary Care Provider [phone] Reason for Visit * Reason Onset Date Comments January recall 12/12/2024 Encounter Details Date Type Department Care Team ([facility] st Contact Info) Description 12/12/2024 Telephone [facility] [address] [place] [address] Name, MD Roel [address] [place] [address] January Social History Tobacco Use Types Packs/Day Years [...] encounter Miscellaneous Notes * Telephone Encounter - Phoebe Baron [place] - 12/12/2024 7:14 PM EST Telephone call to patient to schedule the following recall: Visit type: Office visit Appointment notes: REBECCA Patient agree to appointment on 03/05/25 at 1:45 PM with Name. documented in this encounter Plan of Treatment Upcoming Encounters Date Type Department Care Team (Late st Contact Info) Description 03/05/2025 1:45 PM EDT Office Visit [facility] [address] [place] [address] Name, MD Roel [address] [place] [address] documented as of this encounter Visit Diagnoses Not on filedocumented in this encounter Additional Health Concerns Assessment Noted Time PHQ-9 Depression Total Score: 0 12/31/19 24 10:54 AM EDT documented as of this encounter Care Teams White Sugar Boiler Relationship Specialty Start Date End Date Name, MD Roel [address] [place] [address] PCP - General Family Medicine 10/04/17 documented as of this encounter
--- OUTSIDE RECORDS SUMMARY | 2024-12-19 10:40 | XMS_ITS | Encounter Summary ---
Author Organization [employer] Address [address] [facility] 7t [place] [address] Care Team Providers Care Enrobing Machine Operator Name Role Phone Name, Roel ORTEGA Primary Care Provider [phone] Reason for Visit * Reason Comments Med Refill Encounter Details Date Type Department Care Team ([facility] st Contact Info) Description 11/22/2024 Refill [facility] [address] [place], [place] [phone] Name, MD Roel [address] [place] [address] Social History Tobacco Use Types Packs/Day Years [...] Description 03/05/2025 1:45 PM EDT Office Visit [facility] [address] [place] [address] NameRoel MD [address] [place] [address] documented as of this encounter Visit Diagnoses Not on filedocumented in this encounter Additional Health Concerns Assessment Noted Time PHQ-9 Depression Total Score: 0 12/31/19 24 10:54 AM EDT documented as of this encounter Care Teams Enrobing Machine Operator Relationship Specialty Start Date End Date Name, MD Role [address] [place] [phone] PCP - General Family Medicine 10/04/17 documented as of this encounter
--- OUTSIDE RECORDS SUMMARY | 2024-12-19 10:40 | XMS_ITS | Encounter Summary ---
Author Organization [employer] Address [address] [place] [address] Care Team Providers Care Renal Case Manager Name Role Phone Name, Roel ORTEGA Primary Care Provider [phone] Encounter Details Date Type Department Care Team (Late st Contact Info) Description 12/14/2024 3:30 PM EST Office Visit [facility] OPTOMETRY [address] [place] [address] Levi, Rosa M, OD [address] [place] [address] Diabetic retinopathy of both eyes with macular 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, unspecified retinopathy severity (CMS/HCC) (Primary Dx); Nuclear senile cataract of both eyes; Presbyopia Social History Tobacco Use Types Packs/Day Years [...] AM EDT documented as of this encounter Progress Notes * Rosa M Sims, OD - 12/14/2024 3:30 PM EST Eye Care Progress Note Patient ID: Lolly Hinds is a 59 y.o. female. HPI Here for an updated glasses prescription. The patient has been treated at [facility] since 2018 with injections for non-proliferative diabetic retinopathy (NPDR) and macular edema. She is seen there every 4-5 weeks. Her next appointment is on December 19, 2024. Today the patient reports that she has headaches that refer to the eyes for the past months. They occur about once a week and last about an hour. She takes Tylenol for relief. Her last exam here was in 12/2023. Last edited by Rosa M Sims, OD on 12/15/2024 4:18 PM. Current Outpatient Medications Medication Sig Dispense Refill Myrbetriq 50 MG 24 hr tablet Take 50 mg by mouth in the morning. Trulicity 3 MG/0.5ML solution auto-injector INJECT ONE PEN (= 3MG) SUBCUTANEOUSLY ONCE A WEEK DIRECTED acetaminophen (Tylenol) 500 MG tablet Take 2 tablets (1,000 mg) by mouth every 6 (six) hours if needed for mild pain. 40 tablet 0 albuterol (2.5 MG/3ML) 0.083% nebulizer solution Take 3 mL (2.5 mg) by nebulization every 6 (six) hours if needed for wheezing or shortness of breath. 75 mL 1 albuterol (Ventolin HFA) 108 (90 Base) MCG/ACT inhaler Inhale 2 puffs every 6 (six) hours if neededfor wheezing. 18 g 2 Alcohol Swabs (Alcohol Prep) 70 % pads [...] breakfast, before lunch, and before evening meal. empagliflozin (Jardiance) 25 MG Take 1 tablet [...] LA HORA DE ACOSTARSE POR 5 VALDERRAMA fluticasone (Flonase) 50 MCG/ACT nasal spray Administer 2 sprays into each nostril Once per day. Shake gently. Before first use, prime pump. After use, clean tip and replace cap. 48 g 1 fluticasone furoate (Arnuity Ellipta) 100 MCG/ACT inhaler Inhale 1 puff Once per day. Rinse mouth with water after use to reduce aftertaste and incidence of candidiasis. Do not swallow. 1 each 11 gabapentin (Neurontin) 300 MG capsule Take 300 [...] IF BG>200 MG/DL 15 mL 6 insulin lispro (HumaLOG) 100 UNIT/ML injection INJECT [...] BY MOUTH AT BEDTIME 90 tablet 1 omeprazole (PriLOSEC) [address] capsule Take [...] cream Apply topically every 12 (twelve) hours. Gurinder Childress SoloStar 300 UNIT/ML injection INJECT 36 UNITS SUBCUTANEOUSLY AT BEDTIME traZODone (Desyrel) 100 MG tablet Take 1 tablet by mouth at bed time. TRUEplus Lancets 33G misc TEST BLOOD SUGAR FOUR TIMES DAILY 100 each 6 Vitamin D High Potency 25 MCG (1000 UT) capsule TAKE 2 CAPSULES BY MOUTH ONCE DAILY IN THE MORNING 180 capsule 3 No current facility-administered medications for this visit. Past Medical History: Diagnosis Date Diabetic retinopathy (CMS/HCC) LEANN OU Hypertension Hypertension Inflammatory arthritis Papillary thyroid carcinoma (CMS/HCC) Past Surgical History: Procedure Laterality Date BREAST BIOPSY Right 2020, benign CHOLECYSTECTOMY PTERYGIUM EXCISION W/ GRAFT Left THYROIDECTOMY, PARTIAL Right No family history on file. Social History Socioeconomic History Marital status: Single Spouse name: Not on file Number of children: Not on file Years of education: Not on file Highest education level: Not on file Occupational History Not on file Tobacco Use Smoking status: Never Passive exposure: Past Smokeless tobacco: Never Vaping Use Vaping status: Never Used Substance and Sexual Activity Alcohol use: Never Drug use: Never Sexual activity: Yes Other Topics Concern Not on file Social History Narrative Not on file Social Drivers of Health Food Insecurity: Low Risk (12/31/2023) Food Insecurity Within the past 12 months, you worried that your food would run out before you got money to buy more:: Never True Within the past 12 months,the food you bought just didn't last and you didn't have enough money to get more: : Never True Transportation Needs: Low Risk (12/31/2023) Transportation In the past 12 months, has lack of transportation kept you from medical appts, meetings, work or from getting things needed for daily living? : No Intimate Partner Violence: Not on file Housing Stability: Low Risk (12/31/2023) Housing Stability What is your housing situation today?: I have housing Think about the place you live. Do you have problems with any of the following? : None of the above Allergies Allergen Reactions Metformin Other reaction(s): GI Problems Other reaction(s): gi uposet ROS Positive for: Neurological, Eyes Negative for: Constitutional, Gastrointestinal, Skin, Genitourinary, Musculoskeletal, HENT, Endocrine, Cardiovascular, Respiratory, Psychiatric, Allergic/Imm, Heme/Lymph Last edited by Rosa M Sims, ADINA on 12/15/2024 4:18 PM. Base Eye Exam Visual Acuity (Snellen - Linear) Right Left Dist cc 20/40 +1 20/25 Correction: Glasses Tonometry ([facility] , 2:58 PM) Right Left Pressure 19 19 Pupils Pupils APD Right PERRL None Left PERRL None Visual Estrella (Counting fingers) Left Right Full Full Extraocular Movement Right Left Full Full Neuro/Psych Oriented x3: Yes Mood/Affect: Normal Dilation Deferred, being seen by retina. Slit Lamp and Fundus Exam External Exam Right Left External Normal Normal Slit Lamp Exam Right Left Lids/Lashes Normal Normal Conjunctiva/Sclera White and quiet White and quiet Cornea Arcus Arcus Anterior Chamber Deep and quiet Deep and quiet Iris Flat, no NVI Flat, no NVI Lens 2+ NSC 2+ NSC Fundus Exam Right Left Vitreous Clear Clear Disc [place] and Distinct, no NVD [place] and Distinct, no NVD C/D Ratio Vertical 0.45 0.35 C/D Ratio Horizontal 0.45 0.35 Macula Significant CSME centrally, no SRF CME just inferior to fovea, no SRF Vessels Unable to view Unable to view Periphery Unable to view Unable to view Undilated 90/photo Refraction Wearing Rx Sphere Cylinder Add Right +0.50 Sphere +2.50 Left -0.75 Sphere +2.50 Manifest Refraction (Subjective) Sphere Cylinder [place] Dist VA Near VA Right +0.50 -0.50 125 20/30 +2.50 Left -0.75 Sphere 20/25 +2.50 Near VA Both: 20/25-2 Final Rx Sphere Cylinder [place] Dist VA Near VA Right +0.50 -0.50 125 20/30 +2.50 Left -0.75 Sphere 20/25 +2.50 Expiration Date: 12/14/2025 Comments: Opposite sphere signs allowed Assessment/plan: Diagnoses and all orders for this visit: Diabetic retinopathy of both eyes with macular 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, unspecified retinopathy severity (CMS/HCC) Difficult to assess the level of retinopathy due to poor undilated views and poor photo quality. OCT showed significant cystoid macular edema (CME) in the right eye and mild cystoid macular edema (CME) in the left. She is being followed closely by Dr. Fung at [facility] for treatment. She will be seen there on 12/19/24. She was educated we will monitor her annually, or if she has an emergency, otherwise, her main eye care will be with the retinal specialist. - OCT, Retina - OU - Both Eyes 2. Nuclear senile cataract of both eyes Not likely visually significant enough to warrant treatment at this time. The patient was educated on the findings. She was educated on the progressive nature of cataracts. Will monitor at her next exam. 3. Presbyopia Glasses prescription updated and given. Patient educated her vision will not be fully corrected as her blur is more due to her macular edema than to refractive error. Will monitor at the patient's next full eye exam. Rosa M Sims, OD 12/15/2024, 4:30 PM Student Name: Alona Sol I attest that I was physically present with the optometry student. I personally saw and evaluated the patient and performed my own history and examination. I have reviewed, verified, and revised the documented findings as necessary and agree with the content and plan as written. [employer] Source: ___ None _X__ Bilingual Staff (Milly Morataya) ___ Qualified Staff Cooling Machine Operator ___ Telephone [employer]; ID# ___ [employer] brought by patient (family member, friend, PSYCHIATRIC CNS, etc) ___ In person programs manager ___ Ipad [employer]; ID#: Language Spoken During Exam: _Spanish documented in this encounter Plan of Treatment Upcoming Encounters Date Type Department Care Team (Late st Contact Info) Description 03/05/2025 1:45 PM EDT Office Visit [facility] MEDICINE [address] [place] [address] Name, MD Roel [address] [place] [address] documented as of this encounter Procedures Procedure Name Priority Date/Time Associated Diagnosis Comments OCT, RETINA - OU - BOTH EYES Routine 12/14/2024 3:30 PM EST Diabetic retinopathy of both eyes with macular 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, unspecified retinopathy severity (CMS/HCC) documented in this encounter Results * OCT, Retina - OU - Both Eyes (12/14/2024 3:30 PM EST) Rosa M Savage, OD - 12/15/2024 4:27 PM EST OCT [facility] [employer] Optical Coherence Tomography Interpretation Report Measurements: OD ??OS Macula Thickness ??448 microns ??276 microns Test findings: OD: Tenting of fovea with underlying significant cystoid macular edema (CME), questionable retinal pigment epithelium (RPE) damage at fovea (could be blocked signal), no subretinal fluid (SRF) OS: Normal foveal contour, cystoid macular edema (CME) just inferior to fovea, no retinal pigment epithelium (RPE) disruption, no subretinal fluid (SRF) Impression and Plan: Macular edema in both eyes, much worse in the right. Patient will continue working with the retina specialist as planned. Rosa M Sims OD OPHTH TOMOGRAPHY Final Result documented in this encounter Visit Diagnoses Diagnosis Diabetic retinopathy of both eyes with macular 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, unspecified retinopathy severity (CMS/HCC)- Primary Nuclear senile cataract of both eyes Presbyopia documented in this encounter Additional Health Concerns Assessment Noted Time PHQ-9 Depression Total Score: 0 12/31/19 24 10:54 AM EDT documented as of this encounter Care Teams Renal Case Manager Relationship Specialty Start Date End Date Name, MD Roel [address] [place] [id number] PCP - General Family Medicine 10/04/17 documented as of this encounter
--- OUTSIDE RECORDS SUMMARY | 2024-12-19 10:40 | XMS_ITS | Clinical Summary ---
Demographics Address [address] [place] [address] [address] [place] [address] Work Phone Home Phone Mobile Phone Preferred Language es Marital Status Single Sikhism Affiliation Unknown Race Other Race Ethnic Group or Author Organization [employer] Address [address] [facility] 7t [place] [address] Care Team Providers Care End Finder Forming Department Name Role Phone Name, Roel ORTEGA Primary Care Provider [phone] Allergies Active Allergy Reactions Criticality Noted Date [...] gel Apply topically every 12 (twelve) hours. Active empagliflozin (Jardiance) 25 MG Take 1 tablet by mouth at bed time. Active glucose blood (FREESTYLE LITE) test strip 1 strip every 8 (eight) hours. 018 Active hydrocortisone 1 % cream apply by topical route 2 times every day to the affected area(s) Active hydroxychloroqui ne (Plaquenil) 200 MG tablet Take 1 tablet by mouth at bed time. Active insulin lispro (HumaLOG) 100 UNIT/ML injection INJECT 4 UNITS SUBCUTANEOUSLY BEFORE BREAKFAST AND LUNCH AND 6 UNITS BEFORE DINNER Active omeprazole (PriLOSEC) [address] capsule Take 1 capsule by mouth at bed time. 018 Active polyvinyl alcohol (Liquifilm Tears) 1.4 % [...] 20 mg by mouth at bedtime. Active BD Pen Needle Sandy U/F 32G [...] a week ongoing 42.5 g 2 Active insulin aspart FlexPen (NovoLOG) 100 UNIT/ML [...] SUGAR FOUR TIMES DAILY 100 each 6 Active Vitamin D High Potency 25 MCG (1000 UT) capsuleIndicatio ns: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) TAKE 2 CAPSULES BY MOUTH ONCE DAILY IN THE MORNING 180 capsule 3 024 Active Aspirin Adult Low Strength 81 MG EC tablet TAKE 1 TABLET BY MOUTH EVERY MORNING 90 tablet 3 024 Active famotidine (Pepcid) 20 MG tablet TOME MAYUR TABLETA DIARIAMENTE A LA HORA DE ACOSTARSE POR 5 VALDERRAMA 024 Active Continuous Glucose Sensor (FreeStyle Rama 2 Sensor) misc USE DIRECTED EVERY 2 WEEKS 024 Active montelukast (Singulair) 10 MG tablet TAKE 1 TABLET BY MOUTH AT BEDTIME 90 tablet 1 024 Active amLODIPine (Norvasc) 5 MG tabletIndication s:Essential hypertension TAKE 1 TABLET BY MOUTH EVERY MORNING 90 tablet 1 024 Active acetaminophen (Tylenol) 500 MG tablet Take 2 tablets (1,000 mg) by mouth every 6 (six) hours if needed for mild pain. 40 tablet 024 Active albuterol (2.5 MG/3ML) 0.083% nebulizer [...] to 10 doses. 10 tablet 025 Active metFORMIN (Glucophage) 500 MG tablet TAKE 1/2 TABLET BY MOUTH EVERY MORNING WITH FOOD 45 tablet 1 025 Active Alcohol Swabs (Alcohol Prep) 70 % pads USE THREE TIMES DAILY 100 each 11 025 Active albuterol (Ventolin HFA) 108 (90 Base) MCG/ACT inhaler Inhale 2 puffs every 6 (six) hours if needed for wheezing. 18 g 2 025 Active fluticasone furoate (Arnuity Ellipta) 100 MCG/ACT inhaler Inhale 1 puff Once per day. Rinse mouth with water after use to reduce aftertaste and incidence of candidiasis. Do not swallow. 1 each 025 2025 Active fluticasone (Flonase) 50 MCG/ACT nasal spray Administer 2 sprays into each nostril Once per day. Shake gently. Before first use, prime pump. After use, clean tip and replace cap. 48 g 1 025 2024 Active Trulicity 3 MG/0.5ML solution auto-injector INJECT ONE PEN (= 3MG) SUBCUTANEOUSLY ONCE A WEEK DIRECTED 025 Active Toujeo Max SoloStar 300 UNIT/ML injection INJECT 36 UNITS SUBCUTANEOUSLY AT BEDTIME Active Myrbetriq 50 MG 24 hr tablet Take 50 mg by mouth in the morning. 025 Active insulin glargine (Toujeo SoloStar) 300 UNIT/ML injection Inject under the skin. 018 2024 Discontinued(I neffective) Myrbetriq 25 MG 24 hr tablet TAKE 1 TABLET BY MOUTH EVERY MORNING DO NOT BREAK, CRUSH, DISSOLVE OR CHEW 023 2024 Discontinued(I neffective) Alcohol Swabs (Alcohol Prep) 70 % pads USE THREE TIMES DAILY 100 each 024 2024 Discontinued dulaglutide (Trulicity) 0.75 MG/0.5ML solution pen-injector Inject 0.75 mg under the skin 1 (one) time per week. 4 each 024 2024 Discontinued(I neffective) fluticasone (Flonase) 50 MCG/ACT nasal spray USE 1-2 SPRAYS IN EACH NOSTRIL ONCE DAILY IN THE MORNING 48 g 1 024 2024 Discontinued(R eorder (will not trigger notification to Pharmacy)) metFORMIN (Glucophage) 500 MG tablet TAKE 1/2 TABLET BY MOUTH EVERY MORNING WITH FOOD 45 tablet 1 024 2024 Discontinued Ventolin HFA 108 (90 Base) MCG/ACT inhaler INHALE 2 PUFFS EVERY 6 HOURS NEEDED FOR WHEEZING 18 g 2 024 2024 Discontinued(R eorder (will not trigger notification to Pharmacy)) Active Problems Problem Noted Date Diagnosed Date [...] <100 04/11/2024 IBS (irritable bowel syndrome) 04/11/2024 watermaster (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 of insulin 04/11/2024 Mass of [...] diabetic retinopathy 01/17/2019 Overview (02/09/2024): Follows at [facility] Diabetic 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 11/17/2017 Hypertension 10/04/2017 Diabetes mellitus 10/04/2017 Resolved Problems Problem Noted Date Diagnosed Date Resolved Date Diabetic neuropathy 09/22/2023 09/22/2023 12/24/19 Extrinsic asthma without complication 02/19/2023 12/24/2023 Thyroid nodule 09/15/2022 02/19/2023 Encounters Date Type Department Care Team Description 12/14/2024 3:30 PM EST Office Visit [facility] OPTOMETRY [address] [place], [place] [phone] Levi, Rosa M, OD Diabetic retinopathy of both eyes with macular 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, unspecified retinopathy severity (CMS/HCC) (Primary Dx); Nuclear senile cataract of both eyes; Presbyopia 12/14/2024 Travel 12/12/2024 Telephone [facility] MEDICINE [address] [place] [address] Roel Rock MD January11/30/2024 10:30 AM EST Office Visit [facility] MEDICINE [address] [place] [address] Roel Rock MD Mild persistent asthma without complication (Primary Dx); Type 2 diabetes mellitus with other specified complication, with long-term current use of insulin ([facility]) 11/30/2024 Travel 11/28/2024 Telephone [facility] MEDICINE [address] [place] [address] Edward Mcpherson MA chartprep 11/22/2024 Refill [facility] MED[facility] [address] [place] [address] Name, MD Roel 11/16/2024 2:20 PM EST Office Visit [facility] WALK-IN CENTER [address] [place] [address] Dang Mccormick NP Vomiting in adult (Primary Dx); Chronic bilateral low back pain, unspecified whether sciatica present; Other chest pain 11/16/2024 Orders Only GENERIC EXTERNAL DATA DEPARTMENT Provider, Generic External Data 11/09/2024 Travel 10/27/2024 Telephone [facility] MEDICINE [address] [place] [address] Vanna Cash MA December Recall 10/19/2024 Refill [facility] MEDICINE [address] [place] [address] Name, MD Roel Papillary thyroid carcinoma ([facility]) from Last 3 Months Immunizations Name Administration [...] Mass Index 25.28 11/30/2024 10:55 AM EST Plan of Treatment Upcoming Encounters Date Type Department Care Team (Late st Contact Info) Description 03/05/2025 1:45 PM EDT Office Visit [facility] MEDICINE [address] [place] [address] Name, MD Roel [address] [place] [address] Health Maintenance Due Date Last Done Comments [...] series) 2024 Dental Prophylaxis 09/30/2024 03/30/2024, 02/04/2023 Dental Oral Exam 11/30/2024 05/29/2024, 07/17/2022 Depression Screening 12/30/2024 12/31/2023, 12/31/19 Diabetes: Foot Exam 12/30/2024 12/31/2023, 12/31/2023, 12/31/2023, Additional history exists Dental X-Ray: Bitewings 03/31/2025 03/30/2024, 12/16 SDOH Screening 04/03/2025 04/03/2024 Alcohol/Substance Use Screening 04/17/2025 04/17/2024 Diabetes: Hemoglobin A1C 05/30/2025 025, 07/07/2024, 04/03/2024, Additional history exists Eye Exam 12/14/2025 12/14/2024, 11/19, 12/14/2024, Additional history exists Tobacco Screening 12/15/2025 12/15/2024 Mammogram 03/23/2026 03/23/2024, 02/17, 03/16/2023, Additional history [...] type 2 diabetes mellitus, unspecified retinopathy severity ([facility]/HCC) POCT GLYCATED HEMOGLOBIN, TOTAL Routine 11/30/2024 10:59 AM EST Type 2 diabetes mellitus with other specified complication, with long-term current use of insulin ([facility]) POCT GLUCOSE Routine 11/30/2024 10:56 AM EST Type 2 diabetes mellitus with other specified complication, with long-term current use of insulin ([facility]) POCT INFLUENZA B (ID NOW RAPID MOLECULAR) Routine 11/16/2024 2:01 PM EST Vomiting in adult POCT INFLUENZA A (ID NOW RAPID MOLECULAR) Routine 11/16/2024 2:01 PM EST Vomiting in adult POCT RAPID COVID ANTIGEN Routine 11/16/2024 1:58 PM EST Vomiting in adult GLUCOSE, WHOLE BLOOD Routine 11/16/2024 11:47 AM EST PERIODIC ORAL EVALUATION - ESTABLISHED PATIENT Routine 05/29/2024 9:30 AM EDT Encounter for dental examination Ill-fitting dentures HEPATITIS C AB W/REFL TO HCV RNA, QN, PCR Routine 04/17/2024 11:32 AM EDT Need for hepatitis C screening test PROPHYLAXIS - ADULT Routine 03/30/2024 1 :00 PM EDT Dental plaque INTRAORAL - COMPLETE SERIES OF RADIOGRAPHIC IMAGES Routine 03/30/2024 1:00 PM EDT Dental plaque Missing teeth, acquired Gingival recession, localized BI MAMMOGRAM SCREENING TOMOSYNTHESIS BILATERAL Routine 03/23/2024 2:50 PM EDT ALBUMIN, RANDOM URINE W/CREATININE Routine 02/26/2023 8:39 AM EDT Type 2 diabetes mellitus with other specified complication, with long-term current use of insulin (CMS/HCC) Hypertension, unspecified type LIPID PANEL, STANDARD Routine 02/26/2023 8:39 AM EDT Type 2 diabetes mellitus with other specified complication, with long-term current use of insulin (CMS/HCC) Hypertension, unspecified type IMAGE-GUIDED PAP W/AGE BASED SCR PROTOCOLS Routine 01/13/2023 11:48 AM EDT Cervical cancer screening HM COLONOSCOPY Routine 11/14/2018 4:17 PM EST from Last 3 Months or Most Recently Relevant to Health Maintenance Results * OCT, Retina - OU - Both Eyes (12/14/2024 3:30 PM EST) Narrative Rosa M Sims, OD - 12/15/2024 4:27 PM EST OCT [...] working with the retina specialist as planned. us Rosa M Sims OD OPHTH TOMOGRAPHY Final Result * (ABNORMAL) POCT HGB A1C (11/30/2024 10:59 AM EST) Hemoglobin A1C 6.7(A) 4.0 - 6.0 % QC Media Lot # [id number] Lot# Expiration Date [id number] Blood 11/30/2024 10:5 9 AM EST us Roel Rock MD POINT OF CARE TEST ENTER/EDIT OR DERABLES Final Result * POCT Glucose (11/30/2024 10:56 AM EST) [facility] Glucose Blood, POC 133 60 - 200 mg/dL QC Media Lot # [id number] Lot# Expiration Date [id number] Blood Capillary blood specimen / Unknown 11/30/2024 10:56 AM EST us Roel Rock MD POINT OF CARE TEST ENTER/EDIT OR DERABLES Final Result * Influenza B (ID NOW Rapid Molecular) (11/16/2024 2:01 PM EST) [facility] Influenza B Negative Negative, Indeterminate [facility] Swab 11/16/2024 2:01 PM EST Dang Mccormick NP POINT OF CARE TEST ENTER/EDIT O RDERABLES Final Result Performing Organization Address [facility] Co de Phone Number [facility] [address] [place] [phone] * Influenza A (ID NOW Rapid Molecular) (11/16/2024 2:01 PM EST) [facility] Influenza A Negative Negative, Indeterminate [facility] Swab 11/16/2024 2:01 PM EST Dang Cohen DIALYSIS SOCIAL WORKER POINT OF CARE TEST ENTER/EDIT O RDERABLES Final Result Performing Organization Address [facility] Co de Phone Number [facility] [address] [place] [phone] * POCT Rapid COVID Ag (11/16/2024 1:58 PM EST) [facility] Rapid COVID Ag Negative Swab 11/16/2024 1:58 PM EST Result [facility] Dang Mccormick DIALYSIS SOCIAL WORKER POINT OF CARE TEST ENTER/EDIT O RDERABLES Final Result * Glucose, Whole Blood (11/16/2024 11:47 AM EST) Glucose, Whole Blood 113 60 - 115 mg/dL [facility] Comment:METER #: [id number] 5Testing performed in the Endocrinology Department [address] , [address], [facility]. 11/16/2024 11:4 7 AM EST 11/16/2024 11:51 AM EST Generic External Data Provider LAB BLOOD ORDERAB LES Final Result Performing Organization Address [facility] Co de Phone Number [facility] [address] [place] [address] [phone] * Hepatitis C Antibody with Reflex to HCV, RNA, Quantitative, Real-Time PCR (04/17/2024 11:32 AM EDT) Hepatitis C Antibody Nonreactive Nonreactive [facility] Comment:Antibodies to HCV no t detected; does not exclude early acuteHCV infection. Blood Venous blood specimen / Unknown 04/17/2024 11:32 AM EDT 04/17/2024 1:13 PM EDT Roel Rock MD LAB BLOOD ORDERABLES Final Resul t Performing Organization Address [facility] Co de Phone Number [facility] [address] [place] [phone] * BI Mammogram Screening Tomosynthesis Bilateral (03/23/2024 2:50 PM EDT) Anatomical Region Laterality Modality Breast Bilateral Mammography 03/23/2024 2:50 PM EDT Narrative 04/18/2024 8:48 AM EDT ? [facility] ? [address] ?[place] [address] ? Mammography Report ? Signed ? Patient: Valero Guzman,Gilda ?MR#: M ?? [id number] ? : 1965 ?Acct:[id number] ? Age/Sex: 59 / F ?ADM Date: 06//24 ? Loc: HO.MAMMO ? Attending Dr: Roel Rock MD ? Ordering Physician: Roel Rock MD ?Results: 1Negative ? Date of Service: 03/23/24 ?Follow Up: 1 Year From Orig ?? inal Mammogram ? Procedure(s): MM tomosynthesis screening BI ?? Accession Number(s): [id number] ? cc: Pranav,Roel ORTEGA ? EXAMINATION: ?? MM SCREENING DIGITAL [...] by Aida Rich MD in OV> ? 04/18/24843 ? DD/ 1450 ? TD/TT: ? In Service Coordinator: ? Procedure Note Donmarkter, Image - 04/18/2024 Ping [facility] [address] Feng, [place] [address] Mammography Report Signed Patient: Lolly Mcginnis MMR#: [id number] : 1965Acct:[id number] Age/Sex: 59 / FADM Date: 03/23/24 Loc: HO.MAMMO Attending Dr: Roel Rock MD Ordering Physician: Roel Rock MDResults: 1Negative Date of Service: 03/23/24Follow Up: 1 Year From Orig inal Mammogram Procedure(s): MM tomosynthesis screening BI Accession Number(s): [id number] cc: Roel Rock MD EXAMINATION: MM SCREENING DIGITAL BREAST TOMOSYNTHESIS, [...] in OV> 04/18/24 0844 DD/ 1450 TD/TT: In Service Coordinator: Roel Rock MD IM BI PROCEDURES Edited Result - Final * Albumin, Random Urine W/Creatinine (02/26/2023 8:39 AM EDT) Creatinine, Random Urine 142 20 - 275 mg/dL [facility] Albumin, Urine 1.9 See Note: mg/dL [facility] Comment: Reference Range: Reference Range Not established Albumin/Creatinin e Ratio, Random Urine 13 <30 mcg/mg creat [facility] Comment: The ADA defines abnormalities in albumin [...] AM EDT 02/26/2023 8:40 AM EDT Narrative [facility] 02/26/2023 10:35 PM EDT FASTING:YES FASTING: YES us Roel Rock MD LAB URINE ORDERABLES Final Resul t [facility] [address], [place] [address] [facility] [address] [place] [address] * Lipid Panel, Standard (02/26/2023 8:39 AM EDT) Cholesterol, Total 181 <200 mg/dL [facility] HDL Cholesterol 74 > OR = 50 mg/dL [facility] Triglycerides 62 <150 mg/dL [facility] LDL Cholesterol 93 mg/dL (calc) [facility] Comment: Reference range: <100 Desirable range <100 mg/dL for primary prevention; ?? <70 mg/dL for patients with CHD or diabetic patients with > or = 2 CHD risk factors. LDL-C is now calculated using the Bhavna calculation, which is a validated novel method providing better accuracy than the Friedewald equation in the estimation of LDL-C. Edmar COUCH et al. JERSON. 2013;310(19): 9354-2108 (http://education.[employer]/faq/KAX317) Chol/HDLC Ratio 2.4 <5.0 (calc) [facility] Non-HDL Cholesterol 107 <130 mg/dL (calc) [facility] Comment: For patients with diabetes plus 1 major ASCVD risk factor, treating to a non-HDL-C goal of <100 mg/dL (LDL-C of <70 mg/dL) is considered a therapeutic option. Blood Venous blood specimen / Unknown 02/26/2023 8:39 AM EDT 02/26/2023 8:40 AM EDT Narrative [facility] - 02/26/2023 10:35 PM EDT FASTING:YES FASTING: YES us Roel Rock MD LAB BLOOD ORDERABLES Final Resul t [facility] [address], [place] [address] [facility] [address] [place] [address] * Image-Guided Pap with Age-Based Screening Protocols (01/13/2023 11:48 AM EDT) Comment [facility] Comment: This order for age-based cervical cancer and STI screening follows ACOG guidelines(PB 168, 140, ZCL889). See individual assays for performing site location. Clinical Information: None given [facility] LMP: NONE GIVEN [facility] Prev. PAP: NONE GIVEN [facility] Prev. BX: NONE GIVEN [facility] SOURCE: None given [facility] Statement Of Adequacy: SATISFACTORY FOR EVALUATION [facility] Interpretation/Re sult: [facility] Comment: Negative for intraepithelial lesion or malignancy. Atrophic pattern; predominantly parabasal cells COMMENT: This Pap test has been evaluated with computer assisted technology. [facility] Pipelaying Fitter: Arie callaway [facility] Comment: SXA, CT(ASCP) CT screening location: [address] ??[address] (Always Message) [facility] Comment: EXPLANATORY NOTE: The Pap is a [...] HPV nRNA E6/E7 Not Detected Not Detected [facility] Comment: Methodology: Boring Machine Operator Horizontal-Mediated Amplification This assay detects E6/E7 viral messenger RNA (mRNA) from 14 high-risk HPV types (16,18,31,33,35,39,45,51,52,56,58,59,66,68). Cervical sources are required for HPV testing. If a vaginal source from a patient who has had a total hysterectomy with removal of cervix was submitted, please contact the testing laboratory for alternative testing options. For additional information, please refer to http://education.[employer]/faq/KOW248q3 (This link if provided for information/ educational purposes only.) Cytology specimen container (physical object) 01/13/2023 11:48 AM EDT 01/14/2023 2:03 AM EDT us Erica LOFTON LAB BLOOD ORDERABLES Janis kaba Result [address], [place] [address] [facility] [address] [place] [address] * Hm Colonoscopy (11/14/2018 4:17 PM EST) Colonoscopy Normal Normal Narrative Ami Giraldo - 11/14/2018 4:17 PM EST Recommended 5 year follow up us Historical Provider MD HEALTH MAINTENANCE Final Result from Last 3 Months or Most Recently Relevant to Health Maintenance Insurance * Guarantor: Lolly Mcginnis Account Type Relation to Patient Date of Phone Billing Address Personal/Family Self [address] [place] [address] [facility] C3 DENTAL-[facility] MEDICAID STAND ADULT * Guarantor: Lolly Mcginnis Account Type Relation to Patient Date of Phone Billing Address Personal/Family Self [address] [place] [address] * Guarantor: Lolly Mcginnis Account Type Relation to Patient Date of Phone Billing Address Personal/Family Self [address] [place] [address] Care Teams End Finder Forming Department Relationship Specialty Start Date End Date Name, MD Roel [address] [facility] [place] [address] PCP - General Family Medicine 10/04/17
--- OUTSIDE RECORDS SUMMARY | 2024-12-19 10:40 | XMS_ITS | Encounter Summary ---
Author Organization [employer] Address [address] [facility] [address] [place] [address] Care Team Providers Care Cocoa Roaster Name Role Phone Name, Roel ORTEGA Primary Care Provider [phone] Reason for Visit * Reason Onset Date Comments Appointment Request 12/09/2023 Encounter Details Date Type Department Care Team ([facility] st Contact Info) Description 12/09/2023 Telephone [facility] MEDICINE [address] [place], [place] [phone] Name, MD Roel [address] [place] [address] Appointment Request Social History Tobacco Use Types [...] Description 03/05/2025 1:45 PM EDT Office Visit [facility] [address] [place] [address] Name, MD Roel [address] [place] [address] documented as of this encounter Visit Diagnoses Not on filedocumented in this encounter Additional Health Concerns Assessment Noted Time PHQ-9 Depression Total Score: 0 11/03/19 23 8:54 AM EST documented as of this encounter Care Teams Cocoa Roaster Relationship Specialty Start Date End Date Name, MD Roel [address] [place] [address] PCP - General Family Medicine 10/04/17 documented as of this encounter
--- OUTSIDE RECORDS SUMMARY | 2024-12-19 10:40 | XMS_ITS | Encounter Summary ---
Author Organization [facility] Address [address] [facility] [address] [place] [address] Care Team Providers Care Crew Director Name Role Phone Name, Roel ORTEGA Primary Care Provider [phone] Encounter Details Date Type Department Care Team ([facility] st Contact Info) Description 07/06/2023 Telephone [facility] MEDICINE [address] [place], [place] [phone] Name, MD Roel [address] [place] [address] Social History Tobacco Use Types Packs/Day Years [...] letter to schedule f/u appointment with coleen. Web Analyst does not see any documentation on letter or recall. Please contact pt at [phone] (Georgian) documented in this encounter Plan of Treatment Upcoming Encounters Date Type Department Care Team ([facility] st Contact Info) Description 03/05/2025 1:45 PM EDT Office Visit [facility] MED[facility]INE [address] [place] [address] Name, MD Roel [address] [place] [address] documented as of this encounter Visit Diagnoses Not on filedocumented in this encounter Additional Health Concerns Assessment Noted Time PHQ-9 Depression Total Score: 0 11/03/19 23 8:54 AM EST documented as of this encounter Care Teams Crew Director Relationship Specialty Start Date End Date Name, MD Roel [address] [place] [address] PCP - General Family Medicine 10/04/17 documented as of this encounter
--- OUTSIDE RECORDS SUMMARY | 2024-12-19 10:40 | XMS_ITS | Encounter Summary ---
Author Organization [employer] [facility] Address [address] [place] [address] [address] [place] [address] Care Team Providers Care Clinical Safety Manager Name Role Phone Name, Roel ORTEGA Primary Care Provider [phone] Encounter Details Date Type Department Care Team (Late st Contact Info) Description 09/15/2022 Abstract [facility] ADULT DENTAL [address] [place] [address] Dental, Provider, DDS Social History Tobacco Use [...] Description 03/05/2025 1:45 PM EDT Office Visit [facility] MEDICINE [address] [place] [address] NameRoel MD [address] [place] [address] documented as of this encounter Visit Diagnoses Not on filedocumented in this encounter Care Teams Clinical Safety Manager Relationship Specialty Start Date End Date NameRoel MD [address] [place] [address] PCP - General Family Medicine 10/04/17 documented as of this encounter
--- OUTSIDE RECORDS SUMMARY | 2024-12-19 10:40 | XMS_ITS | Encounter Summary ---
Author Organization [employer] Address [address] [facility] [address] [place] [address] Care Team Providers Care Gore Inserter Name Role Phone Name, Roel ORTEGA Primary Care Provider [phone] Reason for Visit * Reason Onset Date Comments chartprep 11/28/2024 Encounter Details Date Type Department Care Team ([facility] st Contact Info) Description 11/28/2024 Telephone [facility] [address] [place] [address] Edward Mcpherson MA chartprep Social History Tobacco Use Types Packs/Day Years [...] encounter Miscellaneous Notes * Telephone Encounter - Edward Mcpherson MA - 11/28/2024 10:10 AM EST Chart Prep Labs: done Images: done Vaccines due: no updates Referrals: complete Screenings: colonoscopy Overdue care gaps: due on 12/30/24 for depression screening, foot exam, and eye exam documented in this encounter Plan of Treatment Upcoming Encounters Date Type Department Care Team (Late st Contact Info) Description 03/05/2025 1:45 PM EDT Office Visit [facility] [address] [place] [address] Name, MD Roel [address] [place] [address] documented as of this encounter Visit Diagnoses Not on filedocumented in this encounter Additional Health Concerns Assessment Noted Time PHQ-9 Depression Total Score: 0 12/31/19 24 10:54 AM EDT documented as of this encounter Care Teams Gore Inserter Relationship Specialty Start Date End Date NameRoel MD [address] [place] [address] PCP - General Family Medicine 10/04/17 documented as of this encounter
--- OUTSIDE RECORDS SUMMARY | 2024-12-19 10:40 | XMS_ITS | Encounter Summary ---
Demographics Address [address] [place] [address] [address] [place] [address] Work Phone Home Phone Mobile Phone Preferred Language es Marital Status Single Uatsdin Affiliation Unknown Race Other Race Ethnic Group or Author Organization [employer] [facility] Address [address] [place] [address] 7t [place] [address] Care Team Providers Care Automobile Wrecker Name Role Phone NameRoel MD Primary Care Provider [phone] Encounter Details Date Type Department Care Team (Latest Contact Info) Description 12/20/2020 Abstract [facility] Dental, Provider, DDS Social History Tobacco [...] Description 03/05/2025 1:45 PM EDT Office Visit [facility] [address] [place] [address] Roel Rock MD [address] [place] [address] documented as of this encounter Visit Diagnoses Not on filedocumented in this encounter Care Teams Automobile Wrecker Relationship Specialty Start Date End Date Roel Rock MD [address] [place] [address] PCP - General Family Medicine 10/04/17 documented as of this encounter
--- OUTSIDE RECORDS SUMMARY | 2024-12-19 10:40 | XMS_ITS | Encounter Summary ---
Demographics Address [address] [place] [address] [address] [place] [address] Work Phone Home Phone Mobile Phone Preferred Language es Marital Status Single Restorationist Affiliation Unknown Race Other Race Ethnic Group or Author Organization [employer] Address [address] [facility] [address] [place] [address] Care Team Providers Care Passenger Service Representative Name Role Phone Name, Roel ORTEGA Primary Care Provider [phone] Encounter Details Date Type Department Care Team (Latest Contact Info) Description 12/14/2024 Travel Social History Tobacco Use Types Packs/Day [...] Description 03/05/2025 1:45 PM EDT Office Visit [facility] [address] [place] [address] Name, MD Roel [address] [place] [address] documented as of this encounter Visit Diagnoses Not on filedocumented in this encounter Additional Health Concerns Assessment Noted Time PHQ-9 Depression Total Score: 0 12/31/19 24 10:54 AM EDT documented as of this encounter Care Teams Passenger Service Representative Relationship Specialty Start Date End Date NameRoel MD [address] [place] [address] PCP - General Family Medicine 10/04/17 documented as of this encounter
== END 2024-12-19 09:45 | disposition home or self-care (01) ==
PROVIDERS: PCP Internal Medicine Geriatric Medicine; Visit Provider Orthopaedic Surgery
DX: M75.42 Impingement syndrome of left shoulder (principal)
CPT/HCPCS: 99213

== ENCOUNTER → 2024-12-19 09:31 | Outpatient (BNVA) | payer MEDICAID, SELFPAY | PROVIDERS: PCP Internal Medicine Geriatric Medicine; Visit Provider Orthopaedic Surgery | DX: M75.42 Impingement syndrome of left shoulder (principal) | CPT/HCPCS: 99212 ==

== ENCOUNTER 2025-01-26 07:20 | Day surgery (SDC) | payer MEDICAID, SELFPAY ==
--- OUTSIDE RECORDS SUMMARY | 2024-12-19 12:48 | XMS_ITS | Encounter Summary ---
Author Organization [employer] [facility] Address [address] [place] [address] 7t [place] [address] Care Team Providers Care Grind Operator Name Role Phone Name, Roel ORTEGA Primary Care Provider [phone] Encounter Details Date Type Department Care Team (Late st Contact Info) Description 09/15/2022 Abstract [facility] [address] [place] [address] Dental, Provider, DDS Social History Tobacco Use [...] Description 03/05/2025 1:45 PM EDT Office Visit [facility] [address] [place] [address] NameRoel MD [address] [place] [address] documented as of this encounter Visit Diagnoses Not on filedocumented in this encounter Care Teams Grind Operator Relationship Specialty Start Date End Date NameRoel MD [address] [place] [address] PCP - General Family Medicine 10/04/17 documented as of this encounter
--- OUTSIDE RECORDS SUMMARY | 2024-12-19 12:48 | XMS_ITS | Encounter Summary ---
Author Organization [employer] Address [address] [facility] 7t [place] [address] Care Team Providers Care Restaurant Floor Manager Name Role Phone Name, Roel ORTEGA Primary Care Provider [phone] Reason for Visit * Reason Onset Date Comments Results 04/19/2024 Encounter Details Date Type Department Care Team ([facility] st Contact Info) Description 04/19/2024 Telephone [facility] [address] [place], [place] [phone] Name, MD Roel [address] [place] [address] Results Social History Tobacco Use Types Packs/Day [...] 1:45 PM EDT Office Visit [facility] [address] [place] [address] Name, MD Roel [address] [place] [address] documented as of this encounter Visit Diagnoses Not on filedocumented in this encounter Additional Health Concerns Assessment Noted Time PHQ-9 Depression Total Score: 0 12/31/19 24 10:54 AM EDT documented as of this encounter Care Teams Restaurant Floor Manager Relationship Specialty Start Date End Date Name, MD Roel [address] [place] [address] PCP - General Family Medicine 10/04/17 documented as of this encounter
--- OUTSIDE RECORDS SUMMARY | 2024-12-19 12:48 | XMS_ITS | Encounter Summary ---
Demographics Address [address] [place] [address] [address] [place] [address] Work Phone Home Phone Mobile Phone Preferred Language es Marital Status Single Bahai Affiliation Unknown Race Other Race Ethnic Group or Author Organization [employer] [facility] Address [address] [place] [address] 7t [place] [address] Care Team Providers Care Eyewear Consultant Name Role Phone NameRoel MD Primary Care Provider [phone] Encounter Details Date Type Department Care Team (Latest Contact Info) Description 12/20/2020 Abstract [facility] Dental, Provider, DDS Social History Tobacco [...] Description 03/05/2025 1:45 PM EDT Office Visit [facility] 230 [place] [address] Roel Rock MD [address] [place] [address] documented as of this encounter Visit Diagnoses Not on filedocumented in this encounter Care Teams Eyewear Consultant Relationship Specialty Start Date End Date Roel Rock MD [address] [place] [address] PCP - General Family Medicine 10/04/17 documented as of this encounter
--- OUTSIDE RECORDS SUMMARY | 2024-12-19 12:48 | XMS_ITS | Encounter Summary ---
Author Organization [employer] [facility] Address [address] [facility] 7t [place] [address] Care Team Providers Care Car Repairer Pullman Name Role Phone Name, Roel ORTEGA Primary Care Provider [phone] Encounter Details Date Type Department Care Team (Late st Contact Info) Description 03/18/2023 Abstract [facility] [address] [place] [address] Name, MD Roel [address] [place] [address] Social History Tobacco Use Types Packs/Day Years [...] Description 03/05/2025 1:45 PM EDT Office Visit [facility] [address] [place] [address] Name, MD Roel [address] [place] [address] documented as of this encounter Procedures Procedure [...] documented as of this encounter Care Teams Car Repairer Pullman Relationship Specialty Start Date End Date Name, [place] [address] PCP - General Family Medicine 10/04/17 documented as of this encounter
--- OUTSIDE RECORDS SUMMARY | 2024-12-19 12:48 | XMS_ITS | Encounter Summary ---
Author Organization [employer] Address [address] [facility] 7t [place] [address] Care Team Providers Care Process Manager Name Role Phone Name, Roel ORTEGA Primary Care Provider [phone] Reason for Visit * Reason Comments Follow-up Encounter Details Date Type Department Care Team ([facility] st Contact Info) Description 11/30/2024 10:30 AM EST Office Visit [facility] [address] [place], [place] [phone] Name, MD Roel [address] [place] [address] Mild persistent asthma without complication (Primary Dx); Type 2 diabetes mellitus with other specified complication, with long-term current use of insulin ([facility]) Social History Tobacco Use Types Packs/Day Years [...] has been well-controlled athome. She follows at [facility]. She is using her medications as [...] Indeterminate Negative QC Media Lot # [id number] Rapid COVID Ag Negative !: Data is [...] ([facility]) Comments: Well-controlled. Continue current medications. She saw [...] Description 03/05/2025 1:45 PM EDT Office Visit [facility] [address] [place], [place] [phone] Roel Rock MD [address] [place] [address] documented as of this encounter Procedures Procedure Name Priority Date/Time Associated Diagnosis Comments POCT GLYCATED HEMOGLOBIN, TOTAL Routine 11/30/2024 10:59 AM EST Type 2 diabetes mellitus with other specified complication, with long-term current use of insulin ([facility]) POCT GLUCOSE Routine 11/30/2024 10:56 AM EST Type 2 diabetes mellitus with other specified complication, with long-term current use of insulin ([facility]) documented in this encounter Results * (ABNORMAL) [...] ([facility]) documented in this encounter Additional Health Concerns Assessment Noted Time PHQ-9 Depression Total Score: 0 12/31/19 24 10:54 AM EDT documented as of this encounter Care Teams Process Manager Relationship Specialty Start Date End Date Name, MD Roel [address] [place] [address] PCP - General Family Medicine 10/04/17 documented as of this encounter
--- OUTSIDE RECORDS SUMMARY | 2024-12-19 12:48 | XMS_ITS | Encounter Summary ---
Author Organization [employer] Address [address] [facility] [address] [place] [address] Care Team Providers Care Engraved Roller Inspector Name Role Phone Name, Roel ORTEGA Primary Care Provider [phone] Encounter Details Date Type Department Care Team (Late st Contact Info) Description 12/14/2024 3:30 PM EST Office Visit [facility] [address] [place] [address] Levi, Rosa M, OD [address] [place] [address] Diabetic retinopathy of both eyes with macular [...] prescription. The patient has been treated at [facility] since 2018 with injections for [...] Exam Right Left Vitreous Clear Clear Disc [facility] and Distinct, no NVD [facility] and Distinct, no NVD C/D Ratio Vertical 0.45 0.35 C/D Ratio Horizontal 0.45 0.35 Macula Significant CSME centrally, no SRF CME just inferior to fovea, no SRF Vessels Unable to view Unable to view Periphery Unable to view Unable to view Undilated 90/photo Refraction Wearing Rx Sphere Cylinder Add Right +0.50 Sphere +2.50 Left -0.75 Sphere +2.50 Manifest Refraction (Subjective) Sphere Cylinder [place] Dist VA Near VA Right +0.50 -0.50 125 20/30 +2.50 Left -0.75 Sphere 20/25 +2.50 Near VA Both: 20/25-2 Final Rx Sphere Cylinder [place] Dist VA Near VA Right +0.50 -0.50 [...] being followed closely by Dr. Fung at [facility] for treatment. She will be [...] with the content and plan as written. Marina Dry Dock Manager Source: ___ None _X__ Bilingual Staff (Milly Morataya) ___ Qualified Staff Plant Superintendent ___ Telephone Marina Dry Dock Manager; ID# ___ Marina Dry Dock Manager brought by patient (family member, friend, POCKET CLOSER, etc) ___ In person ccna ___ Ipad Marina Dry Dock Manager; ID#: Language Spoken During Exam: _Spanish documented in this encounter Plan of Treatment Upcoming Encounters Date Type Department Care Team (Late st Contact Info) Description 03/05/2025 1:45 PM EDT Office Visit [facility] [address] [place] [address] Name, MD Roel [address] [place] [address] documented as of this encounter Procedures Procedure [...] documented as of this encounter Care Teams Engraved Roller Inspector Relationship Specialty Start Date End Date Name, MD Roel [address] [place] [address] PCP - General Family Medicine 10/04/17 documented as of this encounter
--- OUTSIDE RECORDS SUMMARY | 2024-12-19 12:48 | XMS_ITS | Encounter Summary ---
Author Organization [employer] Address [address] [facility] 7t [place] [address] Care Team Providers Care Ingot Caster Name Role Phone Name, Roel ORTEGA Primary Care Provider [phone] Reason for Visit * Reason Comments Med Refill Encounter Details Date Type Department Care Team ([facility] st Contact Info) Description 11/22/2024 Refill [facility] [address] [place], [place] [phone] Name, MD Roel [address] [place] [address] Social History Tobacco Use Types Packs/Day Years [...] Description 03/05/2025 1:45 PM EDT Office Visit [facility] [address] [place] [address] NameRoel MD [address] [place] [address] documented as of this encounter Visit Diagnoses Not on filedocumented in this encounter Additional Health Concerns Assessment Noted Time PHQ-9 Depression Total Score: 0 12/31/19 24 10:54 AM EDT documented as of this encounter Care Teams Ingot Caster Relationship Specialty Start Date End Date Name, MD Roel [address] [place] [address] PCP - General Family Medicine 10/04/17 documented as of this encounter
--- OUTSIDE RECORDS SUMMARY | 2024-12-19 12:48 | XMS_ITS | Encounter Summary ---
Author Organization [employer] [facility] Address [address] [facility] 7t [place] [address] Care Team Providers Care Balance Wheel Arm Burnisher Name Role Phone Name, Roel ORTEGA Primary Care Provider [phone] Encounter Details Date Type Department Care Team (Late st Contact Info) Description 03/19/2023 Abstract [facility] [address] [place] [address] Name, MD Roel [address] [place] [address] Social History Tobacco Use Types Packs/Day Years [...] Description 03/05/2025 1:45 PM EDT Office Visit [facility] [address] [place] [address] Name, MD Roel [address] [place] [address] documented as of this encounter Visit Diagnoses Not on filedocumented in this encounter Additional Health Concerns Assessment Noted Time PHQ-9 Depression Total Score: 0 11/03/19 23 8:54 AM EST documented as of this encounter Care Teams Balance Wheel Arm Burnisher Relationship Specialty Start Date End Date Name, MD Roel [address] [place] [address] PCP - General Family Medicine 10/04/17 documented as of this encounter
--- OUTSIDE RECORDS SUMMARY | 2024-12-19 12:48 | XMS_ITS | Encounter Summary ---
Author Organization [email or web address] [facility] Address [address] [facility] 7t [place] [address] Care Team Providers Care High Climber Name Role Phone Name, Roel ORTEGA Primary Care Provider [phone] Encounter Details Date Type Department Care Team (Late st Contact Info) Description 12/18/2022 Abstract [facility]ULT D[facility] [address] [place] [address] Najma Interiano, DDS [address] [place] [address] Social History Tobacco Use Types Packs/Day Years [...] 1:45 PM EDT Office Visit [facility] [address] [place] [address] Name, MD Roel [address] [place] [address] documented as of this encounter Visit Diagnoses Not on filedocumented in this encounter Additional Health Concerns Assessment Noted Time PHQ-9 Depression Total Score: 0 11/03/19 23 8:54 AM EST documented as of this encounter Care Teams High Climber Relationship Specialty Start Date End Date Name, MD Roel [address] [place] [address] PCP - General Family Medicine 10/04/17 documented as of this encounter
--- OUTSIDE RECORDS SUMMARY | 2024-12-19 12:48 | XMS_ITS | Clinical Summary ---
Demographics Address [address] [place] [address] [address] [place] [address] Work Phone Home Phone Mobile Phone Preferred Language es Marital Status Single Worship Affiliation Unknown Race Other Race Ethnic Group or Author Organization [employer] Address [address] [facility] 7t [place] [address] Care Team Providers Care Multi Line Claims Adjuster Name Role Phone Name, Roel ORTEGA Primary Care Provider Allergies Active Allergy Reactions Criticality Noted Date [...] diabetic retinopathy 01/17/2019 Overview (02/09/2024): Follows at [facility] [place] [facility] Diabetic 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 11/17/2017 Hypertension 10/04/2017 Diabetes mellitus 10/04/2017 Resolved Problems Problem Noted Date Diagnosed Date Resolved Date Diabetic neuropathy 09/22/2023 09/22/2023 12/24/19 Extrinsic asthma without complication 02/19/2023 12/24/2023 Thyroid nodule 09/15/2022 02/19/2023 Encounters Date Type Department Care Team Description 12/14/2024 3:30 PM EST Office Visit [facility] [address] [place], [place] [phone] Levi, Rosa M, OD 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) 11/30/2024 Travel 11/28/2024 Telephone [facility] [address] [place] [address] Edward Mcpherson MA chartprep 11/22/2024 Refill [facility] [address] [place] [address] Name, MD Roel 11/16/2024 2:20 PM EST Office Visit [facility] [address] [place] [address] Dang Mccormick NP Vomiting in adult (Primary Dx); Chronic bilateral low back pain, unspecified whether sciatica present; Other chest pain 11/16/2024 Orders Only GENERIC EXTERNAL DATA DEPARTMENT Provider, Generic External Data 11/09/2024 Travel 10/27/2024 Telephone [facility] [address] [place] [address] Vanna Cash MA December Recall 10/19/2024 Refill [facility] [address] [place] [address] Name, MD Roel Papillary thyroid carcinoma ([facility]) from Last 3 Months Immunizations Name Administration [...] 03/05/2025 1:45 PM EDT Office Visit [facility] [address] [place] [address] Name, MD Roel [address] [place] [address] Health Maintenance Due Date Last Done Comments [...] type 2 diabetes mellitus, unspecified retinopathy severity ([facility]/HCC) POCT GLYCATED HEMOGLOBIN, TOTAL Routine 11/30/2024 10:59 AM EST Type 2 diabetes mellitus with other specified complication, with long-term current use of insulin ([facility]) POCT GLUCOSE Routine 11/30/2024 10:56 AM EST Type 2 diabetes mellitus with other specified complication, with long-term current use of insulin ([facility]) POCT INFLUENZA B (ID NOW RAPID MOLECULAR) [...] * POCT Glucose (11/30/2024 10:56 AM EST) [facility] Glucose Blood, POC 133 60 - 200 mg/dL QC Media Lot # [id number] Lot# Expiration Date [id number] Blood Capillary blood specimen / Unknown 11/30/2024 10:56 AM EST us Roel Rock MD POINT OF CARE TEST ENTER/EDIT OR DERABLES Final Result * Influenza B (ID NOW Rapid Molecular) (11/16/2024 2:01 PM EST) [facility] Influenza B Negative Negative, Indeterminate [facility] Swab 11/16/2024 2:01 PM EST Dang Mccormick NP POINT OF CARE TEST ENTER/EDIT O RDERABLES Final Result Performing Organization Address [facility] Co de Phone Number [facility] [address] [place] [phone] * Influenza A (ID NOW Rapid Molecular) (11/16/2024 2:01 PM EST) [facility] Influenza A Negative Negative, Indeterminate [facility] Swab 11/16/2024 2:01 PM EST Dang Cohen DIRECTOR OF SUPPLY CHAIN POINT OF CARE TEST ENTER/EDIT O RDERABLES Final Result Performing Organization Address [facility] Co de Phone Number [facility] [address] [place] [phone] * POCT Rapid COVID Ag (11/16/2024 1:58 PM EST) [facility] Rapid COVID Ag Negative Swab 11/16/2024 1:58 PM EST Result [facility] Dang Mccormick DIRECTOR OF SUPPLY CHAIN POINT OF CARE TEST ENTER/EDIT O RDERABLES Final Result * Glucose, Whole Blood (11/16/2024 11:47 AM EST) Glucose, Whole Blood 113 60 - 115 mg/dL [facility] Comment:METER #: [id number] 5Testing performed in the Endocrinology Department [address] , [address], [facility]. 11/16/2024 11:4 7 AM EST 11/16/2024 11:51 AM EST Generic External Data Provider LAB BLOOD ORDERAB LES Final Result Performing Organization Address [facility] Co de Phone Number [facility] [address] [place] [address] [phone] * Hepatitis C Antibody with Reflex to HCV, RNA, Quantitative, Real-Time PCR (04/17/2024 11:32 AM EDT) Hepatitis C Antibody Nonreactive Nonreactive [facility] Comment:Antibodies to HCV no t detected; does not exclude early acuteHCV infection. Blood Venous blood specimen / Unknown 04/17/2024 11:32 AM EDT 04/17/2024 1:13 PM EDT Roel Rock MD LAB BLOOD ORDERABLES Final Resul t Performing Organization Address [facility] Co de Phone Number [facility] [address] [place] [phone] * BI Mammogram Screening Tomosynthesis Bilateral (03/23/2024 2:50 PM EDT) Anatomical Region Laterality Modality Breast Bilateral Mammography 03/23/2024 2:50 PM EDT Narrative 04/18/2024 8:48 AM EDT ? [facility] ? [address] ?[place] [address] ? Mammography Report ? Signed ? Patient: Valero Guzman,Gilda ?MR#: M ?? [id number] ? : 1965 ?Acct:[id number] ? Age/Sex: 59 / F ?ADM Date: 06//24 ? Loc: HO.MAMMO ? Attending Dr: Roel Rock MD ? Ordering Physician: Roel Rock MD ?Results: 1Negative ? Date of Service: 03/23/24 ?Follow Up: 1 Year From Orig ?? inal Mammogram ? Procedure(s): MM tomosynthesis screening BI ?? Accession Number(s): [id number] ? cc: Pranav,Roel ORTEGA ? EXAMINATION: ?? [...] 04/18/24843 ? DD/ 1450 ? TD/TT: ? Pulp Machine Operator: ? Procedure Note Donmarkter, Image - 04/18/2024 [facility] [address] Feng, [place] [address] Mammography Report Signed Patient: Lolly Mcginnis MMR#: [id number] : 1965Acct:[id number] Age/Sex: 59 / FADM Date: 03/23/24 Loc: HO.MAMMO Attending Dr: Roel Rock MD Ordering Physician: Roel Rock MDResults: 1Negative Date of Service: 03/23/24Follow Up: 1 Year From Orig inal Mammogram Procedure(s): MM tomosynthesis screening BI Accession Number(s): [id number] cc: Roel Rock MD EXAMINATION: MM SCREENING [...] in OV> 04/18/24 0844 DD/ 1450 TD/TT: Pulp Machine Operator: Roel Rock MD IM BI PROCEDURES Edited Result - Final * Albumin, Random Urine W/Creatinine (02/26/2023 8:39 AM EDT) Creatinine, Random Urine 142 20 - 275 mg/dL [facility] Albumin, Urine 1.9 See Note: mg/dL [facility] Comment: Reference Range: Reference Range Not established Albumin/Creatinin e Ratio, Random Urine 13 <30 mcg/mg creat [facility] Comment: The ADA defines abnormalities in albumin [...] AM EDT 02/26/2023 8:40 AM EDT Narrative [facility] 02/26/2023 10:35 PM EDT FASTING:YES FASTING: YES us Roel Rock MD LAB URINE ORDERABLES Final Resul t [facility] [address], [place] [address] [facility] [address] [place] [address] * Lipid Panel, Standard (02/26/2023 8:39 AM EDT) Cholesterol, Total 181 <200 mg/dL [facility] HDL Cholesterol 74 > OR = 50 mg/dL [facility] Triglycerides 62 <150 mg/dL [facility] LDL Cholesterol 93 mg/dL (calc) [facility] Comment: Reference range: <100 Desirable range <100 mg/dL for primary prevention; ?? <70 mg/dL for patients with CHD or diabetic patients with > or = 2 CHD risk factors. LDL-C is now calculated using the Bhavna calculation, which is a validated novel method providing better accuracy than the Friedewald equation in the estimation of LDL-C. Edmar COUCH et al. JERSON. 2013;310(19): 7377-6982 (http://education.[employer]/faq/LLA181) Chol/HDLC Ratio 2.4 <5.0 (calc) [facility] Non-HDL Cholesterol 107 <130 mg/dL (calc) [facility] Comment: For patients with diabetes plus [...] BLOOD ORDERABLES Final Resul t [facility] [address], [place] [address] [facility] [address] [place] [address] * Image-Guided Pap with Age-Based Screening Protocols (01/13/2023 11:48 AM EDT) Comment [facility] Comment: This order for age-based cervical cancer and STI screening follows ACOG guidelines(PB 168, 140, DDM403). See individual assays for performing site location. Clinical Information: None given [facility] LMP: NONE GIVEN [facility] Prev. PAP: NONE GIVEN [facility] Prev. BX: NONE GIVEN [facility] SOURCE: None given [facility] Statement Of Adequacy: SATISFACTORY FOR EVALUATION [facility] Interpretation/Re sult: [facility] Comment: Negative for intraepithelial lesion or malignancy. Atrophic pattern; predominantly parabasal cells COMMENT: This Pap test has been evaluated with computer assisted technology. [facility] Boat Joiner Helper: Arie callaway [facility] Comment: SXA, CT(ASCP) CT screening location: [address] ??[phone] (Always Message) [facility] Comment: EXPLANATORY NOTE: The Pap is a [...] HPV nRNA E6/E7 Not Detected Not Detected [facility] Comment: Methodology: Change Management Expert-Mediated Amplification This assay detects E6/E7 viral messenger RNA (mRNA) from 14 high-risk HPV types (16,18,31,33,35,39,45,51,52,56,58,59,66,68). Cervical sources are required for HPV testing. If a vaginal source from a patient who has had a total hysterectomy with removal of cervix was submitted, please contact the testing laboratory for alternative testing options. For additional information, please refer to http://education.[employer]/faq/LPW918y8 (This link if provided for information/ educational purposes only.) Cytology specimen container (physical object) 01/13/2023 11:48 AM EDT 01/14/2023 2:03 AM EDT us Erica [facility] LAB BLOOD ORDERABLES Janis kaba Result [address], [place] [address] [facility] [address] [place] [address] * Hm Colonoscopy (11/14/2018 4:17 PM EST) [...] [address] [place] [address] [facility] C3 DENTAL-[facility] MEDICAID STAND ADULT * Guarantor: Lolly Mcginnis Account Type Relation to Patient Date of Phone Billing Address Personal/Family Self [address] [place] [address] * Guarantor: Lolly Mcginnis Account Type Relation to Patient Date of Phone Billing Address Personal/Family Self [address] [place] [address] Care Teams Multi Line Claims Adjuster Relationship Specialty Start Date End Date Name, MD Roel [address] [facility] [place] [address] PCP - General Family Medicine 10/04/17
--- OUTSIDE RECORDS SUMMARY | 2024-12-19 12:48 | XMS_ITS | Encounter Summary ---
Demographics Address [address] [place] [address] [address] [place] [address] Work Phone Home Phone Mobile Phone Preferred Language es Marital Status Single Methodist Affiliation Unknown Race Other Race Ethnic Group or Author Organization [employer] Address [address] [facility] [address]t [place] [address] Care Team Providers Care Sustainable Agriculture Specialist Name Role Phone Name, Roel ORTEGA Primary Care Provider [phone] Encounter Details Date Type Department Care Team [...] 1:45 PM EDT Office Visit [facility] MED[facility] [address] [place] [address] Name, MD Roel [address] [place] [address] documented as of this encounter Visit Diagnoses Not on filedocumented in this encounter Additional Health Concerns Assessment Noted Time PHQ-9 Depression Total Score: 0 12/31/19 24 10:54 AM EDT documented as of this encounter Care Teams Sustainable Agriculture Specialist Relationship Specialty Start Date End Date NameRoel MD [address] [place] [address] PCP - General Family Medicine 10/04/17 documented as of this encounter
--- OUTSIDE RECORDS SUMMARY | 2024-12-19 12:48 | XMS_ITS | Encounter Summary ---
Author Organization [employer] Address [address] [facility] [address] 7t [place] [address] Care Team Providers Care Validation Software Facilitator Name Role Phone Name, Roel ORTEGA Primary Care Provider [phone] Reason for Visit * Reason Onset Date Comments chartprep 11/28/2024 Encounter Details Date Type Department Care Team ([facility] st Contact Info) Description 11/28/2024 Telephone [facility] MEDIC[facility] [address] [place] [address] Edward Mcpherson MA chartprep Social History Tobacco [...] Description 03/05/2025 1:45 PM EDT Office Visit [facility] MED[facility] [address] [place] [address] Name, MD Roel [address] [place] [address] documented as of this encounter Visit Diagnoses Not on filedocumented in this encounter Additional Health Concerns Assessment Noted Time PHQ-9 Depression Total Score: 0 12/31/19 24 10:54 AM EDT documented as of this encounter Care Teams Validation Software Facilitator Relationship Specialty Start Date End Date NameRoel MD [address] [place] [address] PCP - General Family Medicine 10/04/17 documented as of this encounter
--- OUTSIDE RECORDS SUMMARY | 2024-12-19 12:48 | XMS_ITS | Encounter Summary ---
Author Organization [employer] Address [address] [facility] 7t [place] [address] Care Team Providers Care Motor Equipment Captain Name Role Phone Name, Roel ORTEGA Primary Care Provider [phone] Reason for Visit * Reason Comments Med Refill Encounter Details Date Type Department Care Team ([facility] st Contact Info) Description 06/05/2024 Refill [facility] MEDICINE [address] [place], [place] [phone] Name, MD Roel [address] [place] [address] Essential hypertension Social History Tobacco Use Types [...] Description 03/05/2025 1:45 PM EDT Office Visit [facility] MEDICINE [address] [place] [address] Name, MD Roel [address] [place] [address] documented as of this encounter Visit Diagnoses Diagnosis Essential hypertension Unspecified essential hypertension documented in this encounter Additional Health Concerns Assessment Noted Time PHQ-9 Depression Total Score: 0 12/31/19 24 10:54 AM EDT documented as of this encounter Care Teams Motor Equipment Captain Relationship Specialty Start Date End Date NameRoel MD [address] [place] [address] PCP - General Family Medicine 10/04/17 documented as of this encounter
--- OUTSIDE RECORDS SUMMARY | 2024-12-19 12:48 | XMS_ITS | Encounter Summary ---
Author Organization [employer] Address [address] [facility] 7t [place] [address] Care Team Providers Care Community Health Nurse Name Role Phone Name, Roel ORTEGA Primary Care Provider Encounter Details Date Type Department Care Team ([facility] st Contact Info) Description 07/06/2023 Telephone [facility] MEDICINE [address] [place], [place] [phone] Name, MD Roel [address] [place] [address] Social History Tobacco Use Types Packs/Day Years [...] letter to schedule f/u appointment with coleen. [facility] [employer] [facility] does not see any documentation on letter or recall. Please contact pt at [phone] (Panamanian) documented in this encounter Plan of Treatment Upcoming Encounters Date Type Department Care Team ([facility] st Contact Info) Description 03/05/2025 1:45 PM EDT Office Visit [facility] MEDICINE [address] [place] [address] Name, MD Roel [address] [place] [address] documented as of this encounter Visit Diagnoses Not on filedocumented in this encounter Additional Health Concerns Assessment Noted Time PHQ-9 Depression Total Score: 0 11/03/19 23 8:54 AM EST documented as of this encounter Care Teams Community Health Nurse Relationship Specialty Start Date End Date Name, MD Roel [address] [place] [address] PCP - General Family Medicine 10/04/17 documented as of this encounter
--- OUTSIDE RECORDS SUMMARY | 2024-12-19 12:49 | XMS_ITS | Encounter Summary ---
Author Organization [employer] Address [address] [facility] 7t [place] [address] Care Team Providers Care Access Spec Name Role Phone Name, Roel ORTEGA Primary Care Provider [phone] Reason for Visit * Reason Onset Date Comments January recall 12/12/2024 Encounter Details Date Type Department Care Team ([facility] st Contact Info) Description 12/12/2024 Telephone [facility] MED[facility]INE [address] [place] [address] Name, MD Roel [address] [place] [address] January Social History Tobacco Use Types Packs/Day [...] Description 03/05/2025 1:45 PM EDT Office Visit [facility] [address] [place] [address] Name, MD Roel [address] [place] [address] documented as of this encounter Visit Diagnoses Not on filedocumented in this encounter Additional Health Concerns Assessment Noted Time PHQ-9 Depression Total Score: 0 12/31/19 24 10:54 AM EDT documented as of this encounter Care Teams Access Spec Relationship Specialty Start Date End Date Name, MD Roel [address] [place] [address] PCP - General Family Medicine 10/04/17 documented as of this encounter
--- OUTSIDE RECORDS SUMMARY | 2024-12-19 12:49 | XMS_ITS | Encounter Summary ---
Demographics Address [address] [place] [address] [address] [place] [address] Work Phone Home Phone Mobile Phone Preferred Language es Marital Status Single Congregation Affiliation Unknown Race Other Race Ethnic Group or Author Organization [employer] Address [address] [facility] [address] [place] [address] Care Team Providers Care Infrastructure Manager Name Role Phone Name, Roel ORTEGA Primary Care Provider [phone] Encounter Details Date Type Department Care Team [...] Description 03/05/2025 1:45 PM EDT Office Visit [facility] MEDICINE [address] [place] [address] Name, MD Roel [address] [place] [address] documented as of this encounter Visit Diagnoses Not on filedocumented in this encounter Additional Health Concerns Assessment Noted Time PHQ-9 Depression Total Score: 0 12/31/19 24 10:54 AM EDT documented as of this encounter Care Teams Infrastructure Manager Relationship Specialty Start Date End Date NameRoel MD [address] [place] [address] PCP - General Family Medicine 10/04/17 documented as of this encounter
--- OUTSIDE RECORDS SUMMARY | 2024-12-19 12:49 | XMS_ITS | Encounter Summary ---
Author Organization [employer] Address [address] [place] [address] Care Team Providers Care Protein Chemist Name Role Phone Name, Roel ORTEGA Primary Care Provider [phone] Reason for Visit * Reason Onset Date Comments Appointment Request 12/09/2023 Encounter Details Date Type Department Care Team ([facility] st Contact Info) Description 12/09/2023 Telephone [facility] MEDICINE [address] [place], [place] [phone] Name, MD Roel [address] [place] [address] Appointment Request Social History Tobacco Use Types [...] Description 03/05/2025 1:45 PM EDT Office Visit [facility] MEDICINE [address] [place] [address] Name, MD Roel [address] [place] [address] documented as of this encounter Visit Diagnoses Not on filedocumented in this encounter Additional Health Concerns Assessment Noted Time PHQ-9 Depression Total Score: 0 11/03/19 23 8:54 AM EST documented as of this encounter Care Teams Protein Chemist Relationship Specialty Start Date End Date Name, MD Roel [address] [place] [address] PCP - General Family Medicine 10/04/17 documented as of this encounter
[2025-01-05 10:54] VITALS: BP 145/67; PULSE 90; RESP 20; O2SAT 99; BMI 26.6
--- NOTE | 2025-01-05 11:07 | P.CONAN_ITS ---
Documented by User: Geovanna Sky NP 01/24/25 14:40 HPI - Anesthesia Eval Consult details Narrative: 59yo F for Left Shoulder Arthroscopy,disatal clavical excision,acromioplasty,capsular release and manipulation, 01/26/25 No recent illness No CP/SOB with housework DM: FBS ~ 130 Asthma: prn albuterol ~ 1 x weekly s/p open appendectomy 02/2024 with GA Follows [facility] Cardiology. Stable at 05/2024 office visit. Previous atypical CP likely msk - negative stress/echo 2022 Anesthesia Pre-Procedure Meds Is the patient on any of the following meds?: GLP1/DPP4 and SGLT2 Inhib PMFSH Active Problems Active Problems: All Active Problems Impingement syndrome of left shoulder (Acute) Left shoulder pain (Acute) Hypothyroid (Acute) S/P appendectomy (Acute) Constipation (Acute) Tubular adenoma of colon (Acute) Extensor tenosynovitis of right wrist (Acute) Breast mass, right (Acute) Mass of soft tissue of right upper extremity (Acute) Right wrist pain (Acute) Tubular adenoma of colon (Acute) IBS (irritable bowel syndrome) (Acute) Esophageal spasm (Acute) Functional burping disorder (Acute) GERD (gastroesophageal reflux disease) (Acute) Diabetic retinopathy associated with type 2 diabetes mellitus (Acute) Diabetic 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 associated with type 2 diabetes mellitus (Acute) 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 of insulin (Acute) Papillary microcarcinoma of thyroid (Acute) Gastroparesis (Acute) Diabetes mellitus with hyperglycemia (Acute) Type 2 diabetes mellitus with diabetic neuropathy, unspecified (Acute) Hyperlipidemia LDL goal <100 (Acute) Post-surgical hypothyroidism (Acute) Essential hypertension (Acute) Past Medical History Medical History Difficulty swallowing Asthma Neuropathy Mild pulmonary hypertension Atypical chest pain Venous insufficiency Diabetic retinopathy associated with type 2 diabetes mellitus Diabetic 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 associated with type 2 diabetes mellitus halfway (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 of insulin Papillary microcarcinoma of thyroid Gastroparesis Post-surgical hypothyroidism Gallstones Uninodular goiter Arthritis Retinopathy Depression Diabetes mellitus with hyperglycemia Type 2 diabetes mellitus with diabetic neuropathy, unspecified Hyperlipidemia LDL goal <100 Essential hypertension Vitamin D deficiency Family History Family History Father No problems noted. Mother Diabetes mellitus Daughter Diabetes mellitus Family history of problems with anesthesia: No Surgical History Surgical History Hx of tubal ligation Hx of appendectomy History of bladder surgery H/O colonoscopy H/O thyroidectomy Hx of eye surgery History of esophagogastroduodenoscopy (EGD) History of cholecystectomy History of Problems with Anesthesia: No Social History Social History Household Members: Family Housing: House Are you a primary family day care provider to a significant other at home: No Do you presently have visiting nurse or other home services: No Alcohol intake: current Alcohol intake frequency: does not drink Comment: rings appropriately Patient Tobacco Use Status: Never used Tobacco Second Hand Smoke Exposure: No Use of substances other than those prescribed or required for medical reasons: No Have you been hit, kicked, punched, or otherwise hurt by someone within the past year? If so, by whom?: No Are you DNR?: No Advance Directives: No Advance Directives Information Provided: Yes Advance Directives on File: No Recently lost weight without trying: No Eating poorly because of decreased appetite: No Nutrition Risks: No Nutritional Risk Patient : No : No Poor oral hygiene: Yes (full upper and lower partial denture) service: No Current occupational status: disabled Current occupation: right handed Meds Allergies Allergy/AdvReac Type Severity Reaction Status Date / Time metformin AdvReac Mild stomach Verified 12/19/24 09:34 upset Home Medications ?Medication ?Instructions ?Recorded ?Confirmed ?Last Taken ?Type aspirin 81 mg tablet,delayed 81 mg PO DAILY 07/20/20 01/05/25 04/22/21 09:00 History release (Adult Low Dose Aspirin) metformin 500 mg tablet See Rx Instructions PO DAILY 07/20/20 01/05/25 Unknown History hydrochlorothiazide 12.5 mg tablet 12.5 mg PO DAILY 01/07/22 01/05/25 Unknown History amlodipine 5 mg tablet 5 mg PO DAILY 03/03/22 01/05/25 Unknown History enalapril maleate 20 mg tablet 20 mg PO BEDTIME 03/03/22 01/05/25 Unknown History hydroxychloroquine 200 mg tablet 200 mg PO BID 09/09/22 01/05/25 Unknown History sertraline 100 mg tablet 100 mg PO QAM 09/09/22 01/05/25 Unknown History trazodone 100 mg tablet 100 mg PO BEDTIME PRN insomnia 09/09/22 01/05/25 Unknown History acetaminophen 500 mg tablet 500 mg PO Q6H PRN pain 11/17/22 01/05/25 Unknown History montelukast 10 mg tablet 10 mg PO BEDTIME 03/10/23 01/05/25 Unknown History cholecalciferol (vitamin D3) 25 50 mcg PO DAILY 02/28/24 01/05/25 Unknown History mcg (1,000 unit) capsule (Vitamin D3) albuterol sulfate 2.5 mg/3 mL 2.5 mg inhalation Q6H PRN wheezing 01/05/25 01/05/25 Unknown History (0.083 %) solution for nebulization albuterol sulfate 90 mcg/actuation 2 puff inhalation Q4-6H PRN 01/05/25 01/05/25 Unknown History aerosol inhaler Shortness Of Breath Or Wheezing insulin glargine U-300 conc 300 32 unit subcut BEDTIME 01/05/25 01/05/25 Unknown History unit/mL (3 mL) subcutaneous pen (Toujeo Max U-300 SoloStar) sennosides 8.6 mg tablet (senna) 17.2 mg PO BEDTIME PRN for 01/05/25 01/05/25 Unknown History constipation Exam Height,Weight and Vital Signs: Height 5 ft 1 in Weight 63.957 kg Last Vital Signs Pulse 90 01/05/25 10:54 Resp 20 01/05/25 10:54 BP 145/67 H 01/05/25 10:54 Pulse Ox 99 01/05/25 10:54 O2 Del Method Room Air 01/05/25 10:54 Pertinent Lab Results Pertinent Lab Results: Lab Results 01/05/25 Range/Units 11:40 WBC 6.3 (4.8-10.8) X10*3/uL RBC 4.83 (4.20-5.50) X10*6/uL Hgb 13.6 (12.0-16.0) g/dl Hct 41.1 (37.0-47.0) % MCV 85.1 (80.0-98.0) fL MCH 28.2 (27.0-33.0) pg MCHC 33.1 (31.0-35.0) g/dl RDW 12.7 (11.0-16.0) % Plt Count 253 (160-400) X10*3/uL MPV 9.8 (9.4-12.3) fL Absolute Nucleated RBC 0.000 (0.0-0.012) X10*3/uL Nucleated RBC % (auto) 0.0 (0.0-0.2) /100WBC Sodium 141 (135-145) mmol/L Potassium 4.1 (3.3-5.1) mmol/L Chloride 105 (96-108) mmol/L Carbon Dioxide 29 (22-29) mmol/L Anion Gap 11 L (12-20) BUN 17 H (9-16) mg/dL Creatinine 0.72 (0.5-1.4) mg/dL Estim Creat Clear Calc 71.1 Estimated GFR > 60 Random Glucose 123 H (60-115) mg/dL Calcium 9.5 (8.4-10.2) mg/dL Narrative Narrative: EKG 06/2024 Vent. Rate : 080 BPM Atrial Rate : 080 BPM P-R Int : 132 ms QRS Dur : 076 ms QT Int : 410 ms P-R-T Axes : 062 009 036 degrees QTc Int : 472 ms Normal sinus rhythm Possible Left atrial enlargement Borderline ECG When compared with ECG of 27-FEB-2024 15:28, Heart rate has decreased Airway Mallampati Class: II TM Dist: >3cm Neck ROM: Full Loose/Missing/Broken Teeth: Yes (a few missing teeth but patient denies any loose or broken teeth) Heart: RRR Lungs: CTAB Assessment and Plan Assessment Anesthesia Assessment: Anesthesia Plan Discussed and PAT Visit Final Anesthetic Review Family History of Problems with Anesthesia: No History of Problems with Anesthesia: No Documented by User: Dinorah Martino MD 01/26/25 07:27 HPI - Anesthesia Eval Anesthesia Pre-Procedure Meds If yes to any meds - educate patient: Pt education - increased risk of aspiration and/or [facility]ole[facility] Past Medical History Medical History Difficulty swallowing Asthma Neuropathy Mild pulmonary hypertension Atypical chest pain Venous insufficiency Diabetic retinopathy associated with type 2 diabetes mellitus Diabetic 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 associated with type 2 diabetes mellitus halfway (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 of insulin Papillary microcarcinoma of thyroid Gastroparesis Post-surgical hypothyroidism Gallstones Uninodular goiter Arthritis Retinopathy Depression Diabetes mellitus with hyperglycemia Type 2 diabetes mellitus with diabetic neuropathy, unspecified Hyperlipidemia LDL goal <100 Essential hypertension Vitamin D deficiency Family History Family History Father No problems noted. Mother Diabetes mellitus Daughter Diabetes mellitus Surgical History Surgical History Hx of tubal ligation Hx of appendectomy History of bladder surgery H/O colonoscopy H/O thyroidectomy Hx of eye surgery History of esophagogastroduodenoscopy (EGD) History of cholecystectomy Social History Social History Household Members: Family Housing: House Are you a primary family day care provider to a significant other at home: No Do you presently have visiting nurse or other home services: No Alcohol intake: current Alcohol intake frequency: does not drink Comment: rings appropriately Patient Tobacco Use Status: Never used Tobacco Second Hand Smoke Exposure: No Use of substances other than those prescribed or required for medical reasons: No Have you been hit, kicked, punched, or otherwise hurt by someone within the past year? If so, by whom?: No Are you DNR?: No Advance Directives: No Advance Directives Information Provided: Yes Advance Directives on File: No Recently lost weight without trying: No Eating poorly because of decreased appetite: No Nutrition Risks: No Nutritional Risk Patient : No : No Poor oral hygiene: Yes (full upper and lower partial denture) service: No Current occupational status: disabled Current occupation: right handed Meds Allergies Allergy/AdvReac Type Severity Reaction Status Date / Time metformin AdvReac Mild stomach Verified 12/19/24 09:34 upset Home Medications ?Medication ?Instructions ?Recorded ?Confirmed ?Last Taken ?Type aspirin 81 mg tablet,delayed 81 mg PO DAILY 07/20/20 01/05/25 04/22/21 09:00 History release (Adult Low Dose Aspirin) metformin 500 mg tablet See Rx Instructions PO DAILY 07/20/20 01/05/25 Unknown History hydrochlorothiazide 12.5 mg tablet 12.5 mg PO DAILY 01/07/22 01/05/25 Unknown History amlodipine 5 mg tablet 5 mg PO DAILY 03/03/22 01/05/25 Unknown History enalapril maleate 20 mg tablet 20 mg PO BEDTIME 03/03/22 01/05/25 Unknown History hydroxychloroquine 200 mg tablet 200 mg PO BID 09/09/22 01/05/25 Unknown History sertraline 100 mg tablet 100 mg PO QAM 09/09/22 01/05/25 Unknown History trazodone 100 mg tablet 100 mg PO BEDTIME PRN insomnia 09/09/22 01/05/25 Unknown History acetaminophen 500 mg tablet 500 mg PO Q6H PRN pain 11/17/22 01/05/25 Unknown History montelukast 10 mg tablet 10 mg PO BEDTIME 03/10/23 01/05/25 Unknown History cholecalciferol (vitamin D3) 25 50 mcg PO DAILY 02/28/24 01/05/25 Unknown History mcg (1,000 unit) capsule (Vitamin D3) albuterol sulfate 2.5 mg/3 mL 2.5 mg inhalation Q6H PRN wheezing 01/05/25 01/05/25 Unknown History (0.083 %) solution for nebulization albuterol sulfate 90 mcg/actuation 2 puff inhalation Q4-6H PRN 01/05/25 01/05/25 Unknown History aerosol inhaler Shortness Of Breath Or Wheezing insulin glargine U-300 conc 300 32 unit subcut BEDTIME 01/05/25 01/05/25 Unknown History unit/mL (3 mL) subcutaneous pen (Toujeo Max U-300 SoloStar) sennosides 8.6 mg tablet (senna) 17.2 mg PO BEDTIME PRN for 01/05/25 01/05/25 Unknown History constipation Assessment and Plan Final Anesthetic Review NPO: Yes ASA Class: III Final Preanesthetic Review: No Changes in Pt Med Stat, Meds/Allgs Chart Reviewed, Consent Obtained/Reviewed and Anes Risks/Benef Reviewed Patient Risk: Intermediate Procedure Risk: Intermediate Anesthetic Plan Anesthetic Plan: GA, Regional Block and Agree w/ Assess. and Plan Disposition: Standard PACU
[2025-01-05 12:42] LABS: Hematocrit 41.1 % (37.0-47.0); Hemoglobin 13.6 g/dl (12.0-16.0); Mean Corpuscular HGB Conc 33.1 g/dl (31.0-35.0); Mean Corpuscular Hemoglobin 28.2 pg (27.0-33.0); Mean Corpuscular Volume 85.1 fL (80.0-98.0); Mean Platelet Volume 9.8 fL (9.4-12.3); Platelet Count 253 X10*3/uL (160-400); Red Blood Count 4.83 X10*6/uL (4.20-5.50); Red Cell Distribution Width 12.7 % (11.0-16.0); White Blood Count 6.3 X10*3/uL (4.8-10.8)
[2025-01-05 13:18] LABS: Anion Gap 11 (12-20); Blood Urea Nitrogen 17 mg/dL (9-16); Calcium 9.5 mg/dL (8.4-10.2); Carbon Dioxide 29 mmol/L (22-29); Chloride 105 mmol/L (96-108); Creatinine Clr Calc Pharmacy 71.1; Estimated Glomerular Filt Rate > 60; Glucose Random 123 mg/dL (60-115); Potassium 4.1 mmol/L (3.3-5.1); Sodium 141 mmol/L (135-145)
[2025-01-26] VITALS (7 sets, daily range): BP systolic 103–157; BP diastolic 47–74; PULSE 80–86; RESP 12–20; TEMP 36.2–36.6; O2SAT 92–98; BMI 26.8
[2025-01-26] MEDS: Lactated Ringers 1,000 ML 100 ML IVCONT (07:46)
[2025-01-26 07:51] LABS: Glucose, Whole Blood 131 mg/dL (60-115)
[2025-01-26] MEDS: ceFAZolin Sodium/Dextrose,Iso 2 GM/50 ML PIGGYBACK IV (09:25)
[2025-01-26] MEDS: Acetaminophen 1,000 MG/100 ML PIGGYBACK 400 MG IV (10:00)
--- NOTE | 2025-01-26 10:55 | PM.OP ---
Brief Operative Note Date of Service: 01/26/25 Pre-op diagnosis: Left shoulder impingement syndrome, left shoulder acromioclavicular joint arthritis, left shoulder adhesive capsulitis Post-op diagnosis: same Procedure: Left shoulder diagnostic arthroscopy with left shoulder arthroscopic distal clavicle excision, left shoulder arthroscopic acromioplasty, left shoulder arthroscopic anterior capsular release, left shoulder manipulation under anesthesia Implants: none Surgeon: Freedom Huggins MD Anesthesia: GETA and regional Was an Centrifugal Casting Machine Operator used for this Procedure?: No Estimated blood loss (mL): 10 Pathology: none sent Condition: stable Disposition: PACU
--- NOTE | 2025-01-26 10:56 | W.PM.OPN ---
Operative Note Operative Note Date of Service: 01/26/25 Narrative: After the patient was identified as Lolly Hinds and her left shoulder was initialed by myself the patient was brought to the holding area where a left shoulder interscalene regional block was performed by the anesthesiologist in routine fashion. The patient was then brought to the operating room where general anesthesia was induced by the anesthesiologist in routine fashion. The patient was given 2 g of IV Ancef preoperatively for infection prophylaxis. Examination under anesthesia of the patient's left shoulder showed decreased range of motion when compared to the right shoulder. The patient's left shoulder had forward flexion to 80 degrees compared to 170 degrees, external rotation to 20 degrees compared to 60 degrees, and internal rotation to 40 degrees compared to 50 degrees. The patient was gently positioned in the beach chair position with all bony prominences well padded. The patient's left shoulder region and upper extremity were prepped and draped in sterile fashion. A formal time-out was completed. A #11 scalpel blade was used to make a posterior portal 2 cm inferior and 1 cm medial to the posterolateral corner of the acromion. Blunt trocar technique was used to enter the glenohumeral joint in routine fashion. An anterior portal was made just lateral to the coracoid process after proper positioning was confirmed using a spinal needle. Diagnostic arthroscopy showed minimal degenerative changes of the glenoid and humeral head articular surfaces. There was no evidence of rotator cuff tearing. There was no evidence of injury to the biceps tendon or its insertion onto the glenoid. There was inflammation of the anterior joint capsule consistent with adhesive capsulitis. The ArthroCare Wand was then used to perform an anterior capsular release between the inferior border of the biceps tendon and the superior border of the subscapularis tendon. The arthroscope was then placed from the posterior portal into the subacromial space. A lateral portal was made 2 fingerbreadths lateral to the anterior lateral corner of the acromion. The ArthroCare Wand was used to ablate soft tissues along the undersurface of the acromion as well as to excise the coracoacromial ligament. There was a sharp spur along the undersurface of the acromion which was removed using the hooded bur. The arthroscope was then placed into the lateral portal and the acromioplasty was completed with the bur in the posterior portal using the posterior aspect of the acromion as a cutting block. The ArthroCare Wand was then brought in through the anterior portal and was used to ablate soft tissues along the acromioclavicular joint and distal clavicle. The posterior and superior ligamentous structures were left intact. A distal clavicle excision of 8 mm was performed using the hooded bur. Any remaining bursal tissue was removed using the arthroscopic shaver. The subacromial space was irrigated and then drained. All arthroscopic instruments were removed. A gentle manipulation under anesthesia was then performed. Full passive range of motion was attained. The 3 portals were closed with 3-0 nylon interrupted suture. The subacromial space was injected with Marcaine. Dry sterile dressing was placed over all incisions. The patient's left upper extremity was placed into a sling. The patient was awoken and extubated in the operating room. The patient was transferred to the recovery room in stable condition.
[2025-01-26] MEDS: cefTRIAXone sodium 1 GM VIAL IVPUSH (11:18)
== END 2025-01-26 12:35 | disposition home or self-care (01) ==
PROVIDERS: Nurse Practitioner; PCP Internal Medicine Geriatric Medicine; Visit Provider Orthopaedic Surgery
PROC: (CPT 29805; principal; 2025-01-26 09:00)
DX: M75.42 Impingement syndrome of left shoulder (principal); M75.02 Adhesive capsulitis of left shoulder; M19.012 Primary osteoarthritis, left shoulder; M25.512 Pain in left shoulder; M25.612 Stiffness of left shoulder, not elsewhere classified; I10 Essential (primary) hypertension; E78.5 Hyperlipidemia, unspecified; E11.42 Type 2 diabetes mellitus with diabetic 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; E11.319 Type 2 diabetes mellitus with unspecified diabetic retinopathy without macular edema; E11.65 Type 2 diabetes mellitus with hyperglycemia; E55.9 Vitamin D deficiency, unspecified; E89.0 Postprocedural hypothyroidism; Z85.850 Personal history of malignant neoplasm of thyroid; Z79.1 Long term (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 of non-steroidal anti-inflammatories (NSAID); Z79.82 Long term (current) use of aspirin; Z79.4 Long term (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 of insulin; Z79.84 Long term (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 of oral hypoglycemic drugs; Z79.85 Long-term (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 of injectable non-insulin antidiabetic drugs; Z88.8 Allergy status to other drugs, medicaments and biological substances; Z98.890 Other specified postprocedural states
CPT/HCPCS: 29824; 29825; 29826; 36415; 80048; 82947; 85027; J0131; J0171; J0665; J0690; J0696; J1100; J2003; J2250; J2405; J2704; J2795; J3010

== ENCOUNTER → 2025-01-26 07:20 | Outpatient (BNV) | payer MEDICAID, SELFPAY | PROVIDERS: PCP Internal Medicine Geriatric Medicine; Visit Provider Orthopaedic Surgery | DX: M75.42 Impingement syndrome of left shoulder (principal); M19.012 Primary osteoarthritis, left shoulder; M75.02 Adhesive capsulitis of left shoulder | CPT/HCPCS: 29824; 29826 ==

== ENCOUNTER 2025-02-07 08:00 | Outpatient (AMB) | payer MEDICAID, SELFPAY ==
--- NOTE | 2025-02-07 08:02 | A.OFFVIS_ITS ---
Intake Visit Reasons: PO LT shoulder 01/26/25 Intake Note: Lolly is a 59 year old right hand dominant female who presents today for her first post-operative visit after undergoing a left shoulder arthroscopy on 01/26/25. Patient reports that she is doing well, she occasionally gets a sudden increase of pain that resolves quickly. Sutures removed in office and steri strips applied. 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 Accompanied by: Daughter Allergies metformin Adverse Reaction (Mild, Verified 02/07/25 08:11) stomach upset Medication List - Last Reconciled 02/07/25 by Freedom Huggins MD acetaminophen 500 mg PO Q6H PRN albuterol sulfate 2.5 mg inhalation Q6H PRN albuterol sulfate 90 mcg/actuation 2 puffs inhalation Q4-6H PRN amlodipine 5 mg PO DAILY aspirin (Adult Low Dose Aspirin) 81 mg PO DAILY cholecalciferol (vitamin D3) (Vitamin D3) 50 mcg PO DAILY dicyclomine 20 mg PO .TIDAC 30 days docusate sodium (Colace) 100 mg PO BID PRN dulaglutide (Trulicity) 3 mg (0.5 mL) subcut QWEEK empagliflozin (Jardiance) 25 mg PO QAM enalapril maleate 20 mg PO BEDTIME flash glucose scanning reader (FreeStyle Rama 2 [place]) As directed flash glucose sensor (FreeStyle Rama 2 Sensor kit) As directed change every 2 weeks FreeStyle Lancets (lancets) four times daily NS FreeStyle Lite Meter (blood-glucose meter) As directed NS FreeStyle Lite Strips (blood sugar diagnostic) TEST BLOOD SUGAR FOUR TIMES DAILY NS gabapentin 300 mg PO BEDTIME hydrochlorothiazide 12.5 mg PO DAILY hydroxychloroquine 200 mg PO BID ibuprofen 600 mg PO Q8H PRN insulin aspart U-100 4 units small meals, 8 medium meals and 10 units large meals, + 2 units for bg over 200 subcut 3 times a day; subcut 3 times a day; 30 days insulin glargine U-300 conc (Toujeo Max U-300 SoloStar) 32 units subcut BEDTIME levothyroxine 88 mcg PO DAILY 90 days metformin 1/2 tablet PO daily; montelukast 10 mg PO BEDTIME omeprazole 20 mg PO QAM ondansetron 4 mg PO Q6-8H PRN oxycodone 10 mg (2 x 5 mg) PO Q4H PRN pen needle, diabetic (BD Ultra-Fine Sandy Pen Needle) USE DIRECTED FOUR TIMES DAILY pioglitazone 30 mg PO QAM pravastatin 20 mg PO BEDTIME sennosides (senna) 17.2 mg PO BEDTIME PRN sertraline 100 mg PO QAM trazodone 100 mg PO BEDTIME PRN PFSH Medical History Difficulty swallowing Asthma Neuropathy Mild pulmonary hypertension Atypical chest pain Venous insufficiency Diabetic retinopathy associated with type 2 diabetes mellitus Diabetic 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 associated with type 2 diabetes mellitus 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 Mother Diabetes mellitus Daughter Diabetes mellitus Social History Household Members: Family Housing: House Are you a primary day care attendant to a significant other at home: No Do you presently have visiting nurse or other home services: No Alcohol intake: current Alcohol intake frequency: does not drink Comment: rings appropriately Patient Tobacco Use Status: Never used Tobacco Second Hand Smoke Exposure: No service: No Current occupational status: disabled Current occupation: right handed Female Reproductive History Menstrual Age of Menarche: 8 Physical Exam Extrem Other: Left shoulder examination shows that the surgical incisions are healing well, no erythema, mild to moderate discomfort with range of motion, no instability Assessment & Plan Assessment & Plan (1) Left shoulder pain: Code(s): M25.512 - Pain in left shoulder Category: Medical Plan Ms. Anjum Hinds is doing well after undergoing left shoulder arthroscopic surgery on 01/26/2025. Her sutures were removed and Steri-Strips placed over her incisions. She does not wish to go to formal physical therapy. Stretching exercises were demonstrated to the patient. I did refill her prescription for oxycodone. She will contact me prior to her follow-up appointment in 2 months should any questions or concerns arise. Feel free to call me at any time should questions regarding her orthopedic management arise. Medications: Changed From oxycodone Partial Fill upon patient request. Take 1-2 tabs every 4 hours as needed for pain following her left shoulder surgery. 10 mg (2 x 5 mg) PO Q4H PRN 40 tabs 0RF pain To oxycodone Partial Fill upon patient request. 5 mg PO Q4H PRN 35 tabs 0RF pain Coding Level of Care Code Global (69787) Diagnoses Left shoulder pain M25.512
--- OUTSIDE RECORDS SUMMARY | 2025-02-07 08:06 | XMS_ITS | Encounter Summary ---
Author Organization [employer] Address [address] [place] [address] Care Team Providers Care Cascara Bark Cutter Name Role Phone Name, Roel ORTEGA Primary Care Provider [phone] Reason for Visit * Reason Onset Date Comments Appointment Request 12/09/2023 Encounter Details Date Type Department Care Team ([facility] st Contact Info) Description 12/09/2023 Telephone [facility] [address] [place], [place] [id number] Name, MD Roel [address] [place] [address] Appointment Request Social History Tobacco Use Types [...] 1:45 PM EDT Office Visit [facility] [address] [place] [address] Name, MD Roel [address] [place] [address] documented as of this encounter Visit Diagnoses Not on filedocumented in this encounter Additional Health Concerns Assessment Noted Time PHQ-9 Depression Total Score: 0 11/03/19 23 8:54 AM EST documented as of this encounter Care Teams Cascara Bark Cutter Relationship Specialty Start Date End Date Name, MD Roel [address] [place] [address] PCP - General Family Medicine 10/04/17 documented as of this encounter
--- OUTSIDE RECORDS SUMMARY | 2025-02-07 08:06 | XMS_ITS | Encounter Summary ---
Author Organization [employer] [facility] Address [address] [place] [address] Care Team Providers Care Recorder Gravity Prospecting Name Role Phone Name, Roel ORTEGA Primary Care Provider [phone] Encounter Details Date Type Department Care Team (Late st Contact Info) Description 12/18/2022 Abstract [facility] [address] [place] [address] Najma Interiano, DDS [address] [place] [address] Social History Tobacco Use Types Packs/Day Years [...] 1:45 PM EDT Office Visit [facility] [address] [place] [address] Name, MD Roel [address] [place] [address] documented as of this encounter Visit Diagnoses Not on filedocumented in this encounter Additional Health Concerns Assessment Noted Time PHQ-9 Depression Total Score: 0 11/03/19 23 8:54 AM EST documented as of this encounter Care Teams Recorder [employer]ity Prospecting Relationship Specialty Start Date End Date Name, MD Roel [address] [place] [id number] PCP - General Family Medicine 10/04/17 documented as of this encounter
--- OUTSIDE RECORDS SUMMARY | 2025-02-07 08:06 | XMS_ITS | Encounter Summary ---
Author Organization [employer] [facility] Address [address] [facility] [address] [place] [address] Care Team Providers Care [employer] Professor Name Role Phone Name, Roel ORTEGA Primary Care Provider [phone] Encounter Details Date Type Department Care Team (Late st Contact Info) Description 03/19/2023 Abstract [facility] [address] [place] [id number] Name, MD Roel [address] [place] [id number] Social History Tobacco Use Types Packs/Day Years [...] Description 03/05/2025 1:45 PM EDT Office Visit [facility] [address] [place] [phone] Name, MD Roel [address] [place] [address] documented as of this encounter Visit Diagnoses Not on filedocumented in this encounter Additional Health Concerns Assessment Noted Time PHQ-9 Depression Total Score: 0 11/03/19 23 8:54 AM EST documented as of this encounter Care Teams [employer] Professor Relationship Specialty Start Date End Date Name, MD Roel [address] [place] [address] PCP - General Family Medicine 10/04/17 documented as of this encounter
--- OUTSIDE RECORDS SUMMARY | 2025-02-07 08:06 | XMS_ITS | Encounter Summary ---
Author Organization [employer] Address [address] [facility] [address] [place] [address] Care Team Providers Care Copy Worker Name Role Phone Name, Roel ORTEGA Primary Care Provider [phone] Reason for Visit * Reason Comments Med Refill Encounter Details Date Type Department Care Team ([facility] st Contact Info) Description 06/05/2024 Refill [facility] [address] [place], [place] [phone] Name, MD Roel [address] [place] [address] Essential hypertension Social History Tobacco Use Types [...] Description 03/05/2025 1:45 PM EDT Office Visit [facility] [address] [place] [address] Name, MD Roel [address] [place] [address] documented as of this encounter Visit Diagnoses Diagnosis Essential hypertension Unspecified essential hypertension documented in this encounter Additional Health Concerns Assessment Noted Time PHQ-9 Depression Total Score: 0 12/31/19 24 10:54 AM EDT documented as of this encounter Care Teams Copy Worker Relationship Specialty Start Date End Date NameRoel MD [address] [place] [id number] PCP - General Family Medicine 10/04/17 documented as of this encounter
--- OUTSIDE RECORDS SUMMARY | 2025-02-07 08:06 | XMS_ITS | Encounter Summary ---
Author Organization [employer] Address [address] [facility] [address] [place] [address] Care Team Providers Care Hay Chopper Name Role Phone Name, Roel ORTEGA Primary Care Provider [phone] Reason for Visit * Reason Onset Date Comments Results 04/19/2024 Encounter Details Date Type Department Care Team ([facility] st Contact Info) Description 04/19/2024 Telephone [facility] [address] [place], [place] [phone] Name, MD Roel [address] [place] [address] Results Social History Tobacco Use Types Packs/Day [...] 1:45 PM EDT Office Visit [facility] [address] [place] [phone] Name, MD Roel [address] [place] [address] documented as of this encounter Visit Diagnoses Not on filedocumented in this encounter Additional Health Concerns Assessment Noted Time PHQ-9 Depression Total Score: 0 12/31/19 24 10:54 AM EDT documented as of this encounter Care Teams Hay Chopper Relationship Specialty Start Date End Date Name, MD Roel [address] [place] [address] PCP - General Family Medicine 10/04/17 documented as of this encounter
--- OUTSIDE RECORDS SUMMARY | 2025-02-07 08:06 | XMS_ITS | Clinical Summary ---
Demographics Address [address] [place] [address] [address] [place] [address] Work Phone Home Phone Mobile Phone Preferred Language es Marital Status Single Caodaism Affiliation Unknown Race Other Race Ethnic Group or Author Organization [employer] Address [address] [facility] 7t [place] [address] Care Team Providers Care Glove Brusher Name Role Phone Name, Roel ORTEGA Primary Care Provider [phone] Allergies Active Allergy Reactions Criticality Noted Date Comments Metformin 08/11/2021 Other reaction(s): GI Problems Other reaction(s): gi uposet Medications atorvastatin (Lipitor) 10 MG tablet Take 1 tablet by mouth at bed time. 10/14/20 20 Active Calcium Polycarbophil (fiber) 625 MG tablet Take 2 tablets by mouth at bed time. Active cholecalciferol (Vitamin D-3) 50 MCG (1999 UT) capsule Take 1 capsule by mouth in the morning. Active Diclofenac Sodium 1 % gel Apply topically every 12 (twelve) hours. 06/27/20 21 Active empagliflozin (Jardiance) 25 MG Take 1 tablet by mouth at bed time. Active glucose blood (FREESTYLE LITE) test strip 1 strip every 8 (eight) hours. 05/23/20 18 Active hydrocortisone 1 % cream apply by topical route 2 times every day to the affected area(s) 11/13/19 22 Active hydroxychloroquine (Plaquenil) 200 MG tablet Take 1 tablet by mouth at bed time. Active insulin lispro (HumaLOG) 100 UNIT/ML injection INJECT 4 UNITS SUBCUTANEOUSLY BEFORE BREAKFAST AND LUNCH AND 6 UNITS BEFORE DINNER Active omeprazole (PriLOSEC) [address] capsule Take 1 capsule by mouth at bed time. 05/23/20 18 Active polyvinyl alcohol (Liquifilm Tears) 1.4 % ophthalmic solution 1 drop in each eye at least 3 times a day for burning 12/17/19 18 Active sertraline (Zoloft) 50 MG tablet Take 1 tablet by mouth at bed time. 10/24/19 20 Active Skin Protectants, Misc. (eucerin) cream use bid to hands and feet 11/13/19 22 Active terbinafine (LamISIL) 1 % cream Apply topically every 12 (twelve) hours. 11/13/19 22 Active traZODone (Desyrel) 100 MG tablet Take 1 tablet by mouth at bed time. Active pioglitazone (Actos) 30 MG tablet Take 30 mg by mouth in the morning. 08/24/20 22 Active sertraline (Zoloft) 100 MG tablet Take 100 mg by mouth in the morning. 10/21/19 23 Active senna (Senokot) 8.6 MG tablet TAKE 2 TABLETS BY MOUTH AT BEDTIME FOR CONSTIPATION 10/21/19 23 Active pravastatin (Pravachol) 20 MG tablet Take 20 mg by mouth at bedtime. 10/21/19 23 Active BD Pen Needle Sandy U/F 32G X 4 MM misc USE DIRECTED FOUR TIMES DAILY 10/21/19 23 Active gabapentin (Neurontin) 300 MG capsule Take 300 mg by mouth at bedtime. 10/21/19 23 Active dicyclomine (Bentyl) 20 MG tablet Take 20 mg by mouth before breakfast, before lunch, and before evening meal. 10/21/19 23 Active estradiol (Estrace) 0.1 MG/GM vaginal cream 1 g vaginally nightly x 2 weeks, then 1 g twice a week ongoing 42.5 g 2 01/14/20 23 Active TRUEplus Lancets 33G miscIndications:Ty pe 2 diabetes mellitus with diabetic 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 (CMS/HCC) TEST BLOOD SUGAR FOUR TIMES DAILY 100 each 6 12/22/19 24 Active Vitamin D High Potency 25 MCG (1000 UT) capsuleIndications :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) TAKE 2 CAPSULES BY MOUTH ONCE DAILY IN THE MORNING 180 capsule 3 01/18/20 24 Active Aspirin Adult Low Strength 81 MG EC tablet TAKE 1 TABLET BY MOUTH EVERY MORNING 90 tablet 3 01/18/20 24 Active famotidine (Pepcid) 20 MG tablet TOME MAYUR TABLETA DIARIAMENTE A LA HORA DE ACOSTARSE POR 5 VALDERRAMA 10/28/19 24 Active Continuous Glucose Sensor (FreeStyle Rama 2 Sensor) [facility] USE DIRECTED EVERY 2 WEEKS 12/22/19 24 Active acetaminophen (Tylenol) 500 MG tablet Take 2 tablets (1,000 mg) by mouth every 6 (six) hours if needed for mild pain. 40 tablet 06/16/20 24 Active albuterol (2.5 MG/3ML) 0.083% nebulizer solutionIndication s:Mild persistent asthma without complication Take 3 mL (2.5 mg) by nebulization every 6 (six) hours if needed for wheezing or shortness of breath. 75 mL 1 07/07/20 24 025 Active enalapril (Vasotec) 20 MG tabletIndications: Essential hypertension TAKE 1 TABLET BY MOUTH AT BEDTIME 90 tablet 1 08/23/20 24 Active levothyroxine (Synthroid, Levoxyl) 88 MCG tabletIndications: Papillary thyroid carcinoma (CMS/HCC) TAKE 1 TABLET BY MOUTH EVERY MORNING 90 tablet 1 10/19/19 25 Active ondansetron (Zofran) 4 MG tabletIndications: Vomiting in adult Take 1 tablet (4 mg) by mouth every 8 (eight) hours if needed for nausea or vomiting for up to 10 doses. 10 tablet 11/16/19 25 Active metFORMIN (Glucophage) 500 MG tablet TAKE 1/2 TABLET BY MOUTH EVERY MORNING WITH FOOD 45 tablet 11/22/19 25 Active Alcohol Swabs (Alcohol Prep) 70 % pads USE THREE TIMES DAILY 100 each 11/22/19 25 Active albuterol (Ventolin HFA) 108 (90 Base) MCG/ACT inhaler Inhale 2 puffs every 6 (six) hours if needed for wheezing. 18 g 2 11/30/19 25 Active fluticasone furoate (Arnuity Ellipta) 100 MCG/ACT inhaler Inhale 1 puff Once per day. Rinse mouth with water after use to reduce aftertaste and incidence of candidiasis. Do not swallow. 1 each 11/30/19 25 026 Active fluticasone (Flonase) 50 MCG/ACT nasal spray Administer 2 sprays into each nostril Once per day. Shake gently. Before first use, prime pump. After use, clean tip and replace cap. 48 g 11/30/19 25 Active Trulicity 3 MG/0.5ML solution auto-injector INJECT ONE PEN (= 3MG) SUBCUTANEOUSLY ONCE A WEEK DIRECTED 11/22/19 25 Active Toujeo Max SoloStar 300 UNIT/ML injection INJECT 36 UNITS SUBCUTANEOUSLY AT BEDTIME Active Myrbetriq 50 MG 24 hr tablet Take 50 mg by mouth in the morning. 12/05/19 25 Active amLODIPine (Norvasc) 5 MG tabletIndications: Essential hypertension TAKE 1 TABLET BY MOUTH EVERY MORNING 90 tablet 1 12/21/19 25 Active hydroCHLOROthiazid e 12.5 MG tabletIndications: Essential hypertension TAKE 1 TABLET BY MOUTH EVERY MORNING 90 tablet 1 12/21/19 25 Active insulin aspart FlexPen (NovoLOG) 100 UNIT/ML penIndications:Typ e 2 diabetes mellitus with diabetic 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 (CMS/HCC) INJECT SUBCUTANEOUSLY THREE TIMES DAILY DIRECTED: 4 UNITS WITH MEALS SMALL, 8 UNITS WITH MEALS MEDIANA, 10 UNITS WITH MEALS MELI AND ADDITIONAL 2 UNITS IF BG>200 MG/DL 15 mL 6 12/28/19 25 Active montelukast (Singulair) 10 MG tablet TAKE 1 TABLET BY MOUTH AT BEDTIME 90 tablet 3 12/28/19 25 Active Active Problems Problem Noted Date Diagnosed Date Hordeolum externum of right upper eyelid 024 Assessment & Plan (09/06/2024 2:30 PM EST): [...] <100 04/11/2024 IBS (irritable bowel syndrome) 04/11/2024 senior care (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 of insulin 04/11/2024 Mass of [...] diabetic retinopathy 01/17/2019 Overview (02/09/2024): Follows at [facility] Diabetic 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 11/17/2017 Hypertension 10/04/2017 Diabetes mellitus 10/04/2017 Resolved Problems Problem Noted Date Diagnosed Date Resolved Date Diabetic neuropathy 09/22/2023 09/22/2023 12/24/19 Extrinsic asthma without complication 02/19/2023 12/24/2023 Thyroid nodule 09/15/2022 02/19/2023 Encounters Date Type Department Care Team Description 01/26/2025 Orders Only GENERIC EXTERNAL DATA DEPARTMENT Provider, Generic External Data 01/05/2025 Orders Only GENERIC EXTERNAL DATA DEPARTMENT Provider, Generic External Data 12/29/2024 Population Health Risk Score [facility] ([facility]) Department [address] [address] Provider, Population Health Generic 12/26/2024 Refill [facility] MEDICINE [address] [place] [address] Roel Rock MD Type 2 diabetes mellitus with diabetic 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 ([facility]/HCC) 12/20/2024 Refill [facility] MEDICINE [address] [place] [address] Hellen Porter ANP Essential hypertension 12/20/2024 Refill [facility] [address] [place] [address] Roel Rock MD Essential hypertension 12/14/2024 3:30 PM EST Office Visit [facility] OPTOMETRY [address] [place] [address] Levi, Rosa M, OD Diabetic retinopathy of both eyes with macular 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, unspecified retinopathy severity ([facility]) (Primary Dx); Nuclear senile cataract of both eyes; Presbyopia 12/14/2024 Travel 12/12/2024 Telephone [facility] MEDICINE [address] [place] [address] Roel Rock MD January11/30/2024 10:30 AM EST Office Visit [facility] MEDICINE [address] [place] [address] Roel Rock MD Mild persistent asthma without complication (Primary Dx); Type 2 diabetes mellitus with other specified complication, with long-term current use of insulin ([facility]) 11/30/2024 Travel 11/28/2024 Telephone [facility] MEDICINE [address] [place] [address] Edward Mcpherson MA chartprep 11/22/2024 Refill [facility] MEDICINE [address] [place] [address] Roel Rock MD 11/16/2024 2:20 PM EST Office Visit [facility] WALK-IN CENTER [address] [place] [address] Dang Mccormick, SAM Vomiting in adult (Primary Dx); Chronic bilateral low back pain, unspecified whether sciatica present; Other chest pain 11/16/2024 Orders Only GENERIC EXTERNAL DATA DEPARTMENT Provider, Generic External Data 11/09/2024 Travel from Last 3 Months Immunizations Name Administration [...] Frequency of Binge Drinking Not on file 0710/2023 Score 0 04/17/2024 Depression Answer Date Recorded [...] Description 03/05/2025 1:45 PM EDT Office Visit [facility] MED[facility]INE [address] [place] [phone] Name, MD Roel [address] [place] [address] Health Maintenance Due Date Last Done Comments CT Colonography 1965 FIT DNA/Cologuard 1965 FIT 1965 FOBT 1965 HIV Screening 1965 Sigmoidoscopy 1965 Colonoscopy 11/14/2023 11/14/2018 Colorectal Cancer Screening 11/14/2023 Diabetes: Urine Protein Screening 02/27/2024 02/26/2023, 01/01/2022, 11/27/2021, Additional history exists Lipid Panel 02/27/2024 02/26/2023, 03/2022, 11/27/2021, Additional history exists RSV Patients [...] Associated Diagnosis Comments GLUCOSE, WHOLE BLOOD Routine 01/26/2025 7:48 AM EDT BASIC METABOLIC PANEL Routine 01/05/2025 11:40 AM EDT CBC Routine 01/05/2025 11:40 AM EDT OCT, RETINA - OU - BOTH EYES Routine 12/14/2024 3:30 PM EST Diabetic retinopathy of both eyes with macular 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, unspecified retinopathy severity ([facility]/HCC) POCT GLYCATED HEMOGLOBIN, TOTAL Routine 11/30/2024 10:59 AM EST Type 2 diabetes mellitus with other specified complication, with long-term current use of insulin (CMS/HCC) POCT GLUCOSE Routine 11/30/2024 10:56 AM EST Type 2 diabetes mellitus with other specified complication, with long-term current use of insulin (CMS/HCC) POCT INFLUENZA B (ID NOW RAPID MOLECULAR) [...] Recently Relevant to Health Maintenance Results * (ABNORMAL) Glucose, Whole Blood (01/26/2025 7:48 AM EDT) Pathologist [facility] Glucose, Whole Blood 131(H) 60 - 115 mg/dL [facility] Comment:METER #: [id number] 01/26/2025 7:48 AM EDT 01/26/2025 7:51 AM EDT us Generic External Data Provider LAB BLOOD ORDERAB LES Final Result [facility] [address] [place] [phone] * CBC (01/05/2025 11:40 AM EDT) [facility] White Blood Count 6.3 4.8 - 10.8 X10*3/uL [facility] Red Blood Count 4.83 4.20 - 5.50 X10*6/uL [facility] Hemoglobin 13.6 12.0 - 16.0 g/dl [facility] Hematocrit 41.1 37.0 - 47.0 % [facility] Mean Corpuscular Volume 85.1 80.0 - 98.0 fL [facility] Mean Corpuscular Hemoglobin 28.2 27.0 - 33.0 pg [facility] Mean Corpuscular HGB Conc 33.1 31.0 - 35.0 g/dl [facility] Red Cell Distribution Width 12.7 11.0 - 16.0 % [facility] Platelet Count 253 160 - 400 X10*3/uL [facility] Mean Platelet Volume 9.8 9.4 - 12.3 fL [facility] NRBC Pct Auto 0.0 0.0 - 0.2 /100WBC [facility] NRBC Abs Auto 0.000 0.0 - 0.012 X10*3/uL [facility] 01/05/2025 11:4 0 AM EDT 01/05/2025 11:40 AM EDT us Generic External Data Provider LAB BLOOD ORDERAB LES Final Result [facility] [address] [place] [address] [phone] * (ABNORMAL) Basic Metabolic Panel (01/05/2025 11:40 AM EDT) Sodium 141 135 - 145 mmol/L [facility] Potassium 4.1 3.3 - 5.1 mmol/L [facility] Chloride 105 96 - 108 mmol/L [facility] Carbon Dioxide 29 22 - 29 mmol/L [facility] Anion Gap 11(L) 12 - 20 [facility] Urea Nitrogen (BUN) 17(H) 9 - 16 mg/dL [facility] Creatinine, Serum 0.72 0.5 - 1.4 mg/dL [facility] Creatinine Clr Calc Pharmacy 71.1 [facility] Comment:Provided height and weight: 154.94 cm,63.957 kg.eGFR (calculated from the MDRD study equation) and eCrCl(calculated from the Cockcroft-Gault equation) are based ondifferent parameters and may not yield comparable results.If eCrCl result is absurd, please check patient'sheight/weight. Estimated Glomerular Filt Rate >60 [facility] Comment:Chronic Kidney Disea se: Estimated GFR < 60 mL/min/1.02q2Pkwnva Kidney Disease: Estimated GFR < 15 mL/min/1.73m2 Glucose 123(H) 60 - 115 mg/dL [facility] Calcium 9.5 8.4 - 10.2 mg/dL [facility] 01/05/2025 11:4 0 AM EDT 01/05/2025 11:40 AM EDT us Generic External Data Provider LAB BLOOD ORDERAB LES Final Result [facility] [address] [place] [phone] * OCT, Retina - OU - Both [...] * POCT Glucose (11/30/2024 10:56 AM EST) Pathologist [facility] Glucose Blood, POC 133 60 - 200 mg/dL QC Media Lot # [id number] Lot# Expiration Date [id number] Blood Capillary blood specimen / Unknown 11/30/2024 10:56 AM EST us Roel Rock MD POINT OF CARE TEST ENTER/EDIT OR DERABLES Final Result * Influenza B (ID NOW Rapid Molecular) (11/16/2024 2:01 PM EST) Pathologist [facility] Influenza B Negative Negative, Indeterminate [facility] Swab 11/16/2024 2:01 PM EST us Dang Appram RIVER TRANSPORTATION WORKER POINT OF CARE TEST ENTER/EDIT O RDERABLES Final Result Performing Organization Address [facility]/ZIP Co de Phone Number [facility] [address] [place] [address] [phone] * Influenza A (ID NOW Rapid Molecular) (11/16/2024 2:01 PM EST) [facility] Influenza A Negative Negative, Indeterminate [facility] Swab 11/16/2024 2:01 PM EST us Dang Mccormick RIVER TRANSPORTATION WORKER POINT OF CARE TEST ENTER/EDIT O RDERABLES Final Result Performing Organization Address [facility] Co de Phone Number [facility] [address] [place] [address] [phone] * POCT Rapid COVID Ag (11/16/2024 1:58 PM EST) [facility] Rapid COVID Ag Negative Swab 11/16/2024 1:58 PM EST us Dang Appram [employer]SPORTATION WORKER POINT OF CARE TEST ENTER/EDIT O RDERABLES Final Result * Glucose, Whole Blood (11/16/2024 11:47 AM EST) [facility] Glucose, Whole Blood 113 60 - 115 mg/dL [facility] Comment:METER #: [id number] 5Testing performed in the Endocrinology Department [address] , [address], [facility]. 11/16/2024 11:4 7 AM EST 11/16/2024 11:51 AM EST us Generic External Data Provider LAB BLOOD ORDERAB LES Final Result Performing Organization Address City/[facility]/ZIP Co de Phone Number [facility] [address] [place] [address] [phone] * Hepatitis C Antibody with Reflex to HCV, RNA, Quantitative, Real-Time PCR (04/17/2024 11:32 AM EDT) Hepatitis C Antibody Nonreactive Nonreactive [facility] Comment:Antibodies to HCV no t detected; does not exclude early acuteHCV infection. Blood Venous blood specimen / Unknown 04/17/2024 11:32 AM EDT 04/17/2024 1:13 PM EDT us Roel Name MD LAB BLOOD ORDERABLES Final Resul t [facility] [address] [place] [address] [phone] * BI Mammogram Screening Tomosynthesis Bilateral (03/23/2024 2:50 PM EDT) Anatomical Region Laterality Modality Breast Bilateral Mammography 03/23/2024 2:50 PM EDT Narrative 04/18/2024 8:48 AM EDT ? [facility] [place] ? [address] ?[place] [id number] ? Mammography Report ? Signed ? Patient: Anjum Hinds,Gilda ?MR#: M ?? [id number] ? : 1965 ?Acct:[id number] ? Age/Sex: 59 / F ?ADM Date: 06/06/24 ? Loc: HO.MAMMO ? Attending Dr: Roel Name MD ? Ordering Physician: Name,Roel MD ?Results: 1Negative ? Date of Service: 03/23/24 ?Follow Up: 1 Year From Orig ?? inal Mammogram ? Procedure(s): MM tomosynthesis screening BI ?? Accession Number(s): [id number] ? cc: Name,Roel ORTEGA ? EXAMINATION: ?? [...] MD in OV> ? 04/18/24843 ? DD/ ? TD/TT: ? Cleaner And Trimmer: ? Procedure Note Bryant, Image - 04/18/2024 [facility] [address] [place] [address] [place] [address] Mammography Report Signed Patient: Lolly Mcginnis MMR#: M [id number] : 1965Acct:[id number] Age/Sex: 59 / FADM Date: 03/23/24 Loc: PREET Attending Dr: Roel Rock MD Ordering Physician: Roel Rock MDResults: 1Negative Date of Service: 03/23/24Follow Up: 1 Year From Orig inal Mammogram Procedure(s): MM tomosynthesis screening BI Accession Number(s): [id number] cc: Name,Roel ORTEGA EXAMINATION: MM SCREENING DIGITAL BREAST TOMOSYNTHESIS, BILATERAL [...] in OV> 04/18/24 0844 DD/ 1450 TD/TT: Cleaner And Trimmer: Roel Rock MD [facility] BI PROCEDURES Edited Result - Final * Albumin, Random Urine W/Creatinine (02/26/2023 8:39 AM EDT) Creatinine, Random Urine 142 20 - 275 mg/dL [facility] Albumin, Urine 1.9 See Note: mg/dL [facility] Comment: Reference Range: Reference Range Not established Albumin/Creatinin e Ratio, Random Urine 13 <30 mcg/mg creat [employer] Comment: The ADA defines abnormalities in albumin [...] MD LAB URINE ORDERABLES Final Resul t [address], [place] [address] [employer] [address] [place] [address] * Lipid Panel, Standard (02/26/2023 8:39 AM EDT) Cholesterol, Total 181 <200 mg/dL [employer] [place] [employer] HDL Cholesterol 74 > OR = 50 mg/dL [employer] Triglycerides 62 <150 mg/dL [employer] LDL Cholesterol 93 mg/dL (calc) [employer] Comment: Reference range: <100 Desirable range <100 mg/dL for primary prevention; ?? <70 mg/dL for patients with CHD or diabetic patients with > or = 2 CHD risk factors. LDL-C is now calculated using the Bhavna calculation, which is a validated novel method providing better accuracy than the Friedewald equation in the estimation of LDL-C. Edmar COUCH et al. JERSON. 2013;310(19): 6642-1603 (http://education.[employer]/faq/OOE548) Chol/HDLC Ratio 2.4 <5.0 (calc) [employer] Non-HDL Cholesterol 107 <130 mg/dL (calc) [facility] Comment: For patients with diabetes plus 1 major ASCVD risk factor, treating to a non-HDL-C goal of <100 mg/dL (LDL-C of <70 mg/dL) is considered a therapeutic option. Blood Venous blood specimen / Unknown 02/26/2023 8:39 AM EDT 02/26/2023 8:40 AM EDT Narrative [facility] - 02/26/2023 10:35 PM EDT FASTING:YES FASTING: YES us Roel Name MD LAB BLOOD ORDERABLES Final Resul t [address], [place] [address] [employer] [address] [place] [phone] * Image-Guided Pap with Age-Based Screening Protocols (01/13/2023 11:48 AM EDT) Comment [employer] Comment: This order for age-based cervical cancer and STI screening follows ACOG guidelines(PB 168, 140, ZZX878). See individual assays for performing site location. Clinical Information: None given [facility] LMP: NONE GIVEN [facility] Prev. PAP: NONE GIVEN [facility] Prev. BX: NONE GIVEN [employer] SOURCE: None given [facility] Statement Of Adequacy: SATISFACTORY FOR EVALUATION [facility] Interpretation/Re sult: [facility] Comment: Negative for intraepithelial lesion or malignancy. Atrophic pattern; predominantly parabasal cells COMMENT: This Pap test has been evaluated with computer assisted technology. [employer] Screw Machine Repairer: Arie callaway [employer] Comment: SXA, CT(ASCP) CT screening location: [address] ??[address] (Always Message) [facility] [employer] Comment: EXPLANATORY NOTE: The Pap is a [...] HPV nRNA E6/E7 Not Detected Not Detected [facility] Comment: Methodology: Box Nailer-Mediated Amplification This assay detects E6/E7 viral messenger RNA (mRNA) from 14 high-risk HPV types (16,18,31,33,35,39,45,51,52,56,58,59,66,68). Cervical sources are required for HPV testing. If a vaginal source from a patient who has had a total hysterectomy with removal of cervix was submitted, please contact the testing laboratory for alternative testing options. For additional information, please refer to http://education.[employer]/faq/YDQ007r4 (This link if provided for information/ educational purposes only.) Cytology specimen container (physical object) 01/13/2023 11:48 AM EDT 01/14/2023 2:03 AM EDT Erica Joseph CNM LAB BLOOD ORDERABLES Janis l Result [facility] [address], [place] [address] [employer] [address] [place] [address] * Hm Colonoscopy (11/14/2018 4:17 PM EST) Colonoscopy Normal Normal Narrative Ami Giraldo - 11/14/2018 4:17 PM EST Recommended 5 year follow up Historical Provider MD HEALTH MAINTENANCE Final Result from Last 3 Months or Most Recently Relevant to Health Maintenance Insurance * Guarantor: Lolly Mcginnis Account Type Relation to Patient Date of Phone Billing Address Personal/Family Self 1965 [address] [place] [address] [facility] STAND ADULT * Guarantor: Lolly Mcginnis Account Type Relation to Patient Date of Phone Billing Address Personal/Family Self [address] [place] [address] * Guarantor: Lolly Mcginnis Account Type Relation to Patient Date of Phone Billing Address Personal/Family Self [address] [place] [address] * Guarantor: Lolly Mcginnis Account Type Relation to Patient Date of Phone Billing Address Personal/Family Self [address] [place] [address] Care Teams Glove Brusher Relationship Specialty Start Date End Date Name, MD Roel [address] [place] [phone] PCP - General Family Medicine 10/04/17
--- OUTSIDE RECORDS SUMMARY | 2025-02-07 08:06 | XMS_ITS | Encounter Summary ---
Demographics Address [address] [place] [address] [address] [place] [address] Work Phone Home Phone Mobile Phone Preferred Language es Marital Status Single Samaritan Affiliation Unknown Race Other Race Ethnic Group or Author Organization [facility] Address [address] [place] [address] [address] [place] [address] Care Team Providers Care Extruder Tender Name Role Phone NameRoel MD Primary Care Provider [phone] Encounter Details Date Type Department Care Team (Latest Contact Info) Description 12/20/2020 Abstract [facility] CONVERSIONS Dental, Provider, DDS Social History Tobacco [...] Description 03/05/2025 1:45 PM EDT Office Visit [facility] MEDICINE [address] [place] [address] Roel Rock MD [address] [place] [address] documented as of this encounter Visit Diagnoses Not on filedocumented in this encounter Care Teams Extruder Tender Relationship Specialty Start Date End Date Roel Rock MD [address] [place] [address] PCP - General Family Medicine 10/04/17 documented as of this encounter
--- OUTSIDE RECORDS SUMMARY | 2025-02-07 08:06 | XMS_ITS | Encounter Summary ---
Author Organization [facility] Address [address] [place] [address] 7t [place] [address] Care Team Providers Care Sales Department Clerk Name Role Phone Name, Roel ORTEGA Primary Care Provider Encounter Details Date Type Department Care Team (Late st Contact Info) Description 09/15/2022 Abstract [facility] [address] [place] [address] Dental, Provider, DDS Social History Tobacco Use [...] Description 03/05/2025 1:45 PM EDT Office Visit [facility] [address] [place] [address] NameRoel MD [address] [place] [address] documented as of this encounter Visit Diagnoses Not on filedocumented in this encounter Care Teams Sales Department Clerk Relationship Specialty Start Date End Date NameRoel MD [address] [place] [address] PCP - General Family Medicine 10/04/17 documented as of this encounter
--- OUTSIDE RECORDS SUMMARY | 2025-02-07 08:06 | XMS_ITS | Encounter Summary ---
Author Organization [employer] [facility] Address [address] [facility] 7t [place] [address] Care Team Providers Care Semiconductor Packages Platemaker Name Role Phone Name, Roel ORTEGA Primary Care Provider [phone] Encounter Details Date Type Department Care Team (Late st Contact Info) Description 03/18/2023 Abstract [facility] [address] [place] [address] Name, MD Roel [address] [place] [phone] Social History Tobacco Use Types Packs/Day Years [...] Description 03/05/2025 1:45 PM EDT Office Visit [facility] [address] [place] [address] Name, MD Roel [address] [place] [address] documented as of this encounter Procedures Procedure [...] documented as of this encounter Care Teams Semiconductor Packages Platemaker Relationship Specialty Start Date End Date Name, [place] [address] PCP - General Family Medicine 10/04/17 documented as of this encounter
--- OUTSIDE RECORDS SUMMARY | 2025-02-07 08:06 | XMS_ITS | Encounter Summary ---
Author Organization [employer] Address [address] [facility] 7t [place] [address] Care Team Providers Care Exercise Rider Name Role Phone Name, Roel ORTEGA Primary Care Provider [phone] Encounter Details Date Type Department Care Team ([facility] st Contact Info) Description 07/06/2023 Telephone [facility] [address] [place], [place] [phone] Name, MD Roel [address] [place] [address] Social History Tobacco Use Types Packs/Day Years [...] letter to schedule f/u appointment with coleen. Bar Examiner does not see any documentation on letter or recall. Please contact pt at [phone] (Hungarian) documented in this encounter Plan of Treatment Upcoming Encounters Date Type Department Care Team ([facility] st Contact Info) Description 03/05/2025 1:45 PM EDT Office Visit [facility] [address] [place] [address] Name, MD Roel [address] [place] [address] documented as of this encounter Visit Diagnoses Not on filedocumented in this encounter Additional Health Concerns Assessment Noted Time PHQ-9 Depression Total Score: 0 11/03/19 23 8:54 AM EST documented as of this encounter Care Teams Exercise Rider Relationship Specialty Start Date End Date Name, MD Roel [address] [place] [address] PCP - General Family Medicine 10/04/17 documented as of this encounter
== END 2025-02-07 08:27 | disposition home or self-care (01) ==
LOC: HO.HOS 08:01
PROVIDERS: PCP Internal Medicine Geriatric Medicine; Visit Provider Orthopaedic Surgery
DX: M25.512 Pain in left shoulder (principal)
CPT/HCPCS: 99024

== ENCOUNTER → 2025-02-07 08:00 | Outpatient (BNVA) | payer MEDICAID, SELFPAY | PROVIDERS: PCP Internal Medicine Geriatric Medicine; Visit Provider Orthopaedic Surgery | DX: M25.512 Pain in left shoulder (principal) | CPT/HCPCS: 99212 ==

== ENCOUNTER 2025-03-01 16:22 | Outpatient (AMB) | payer MEDICAID, SELFPAY ==
--- OUTSIDE RECORDS SUMMARY | 2025-03-01 16:24 | XMS_ITS | Clinical Summary ---
Demographics Address [address] [place] [address] [address] [place] [address] Work Phone Home Phone Mobile Phone Preferred Language es Marital Status Single Amish Affiliation Unknown Race Other Race Ethnic Group Unknown Author Organization [employer] Address [address] [facility] 7t [place] [address] Care Team Providers Care Watershed Engineer Name Role Phone Name, Roel ORETGA Primary Care Provider [phone] Allergies Active Allergy Reactions Criticality Noted Date [...] day to the affected area(s) 022 Active hydroxychloroquin e (Plaquenil) 200 MG tablet Take 1 tablet [...] a week ongoing 42.5 g 2 Active TRUEplus Lancets 33G miscIndications:T ype 2 diabetes mellitus with diabetic 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 (CMS/HCC) TEST BLOOD SUGAR FOUR TIMES DAILY 100 each 6 Active Vitamin D High Potency 25 MCG (1000 UT) capsuleIndication s: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) TAKE 2 CAPSULES BY MOUTH ONCE DAILY IN THE MORNING 180 capsule 3 Active famotidine (Pepcid) 20 MG tablet TOME MAYUR TABLETA DIARIAMENTE A LA HORA DE ACOSTARSE POR 5 VALDERRAMA Active Continuous Glucose Sensor (FreeStyle Rama 2 Sensor) misc USE DIRECTED EVERY 2 WEEKS Active acetaminophen (Tylenol) 500 MG tablet Take 2 tablets (1,000 mg) by mouth every 6 (six) hours if needed for mild pain. 40 tablet Active albuterol (2.5 MG/3ML) 0.083% nebulizer solutionIndicatio ns:Mild persistent asthma without complication Take 3 mL (2.5 mg) by nebulization every 6 (six) hours if needed for wheezing or shortness of breath. 75 mL 1 024 2024 Active enalapril (Vasotec) 20 MG tabletIndications :Essential hypertension TAKE 1 TABLET BY MOUTH AT BEDTIME 90 tablet 1 Active levothyroxine (Synthroid, Levoxyl) 88 MCG tabletIndications :Papillary thyroid carcinoma (CMS/HCC) TAKE 1 TABLET BY MOUTH EVERY MORNING 90 tablet 025 Active ondansetron (Zofran) 4 MG tabletIndications :Vomiting in adult Take 1 tablet (4 mg) by mouth every 8 (eight) hours if needed for nausea or vomiting for up to 10 doses. 10 tablet Active metFORMIN (Glucophage) 500 MG tablet TAKE 1/2 TABLET BY MOUTH EVERY MORNING WITH FOOD 45 tablet Active Alcohol Swabs (Alcohol Prep) 70 % pads USE THREE TIMES DAILY 100 each Active albuterol (Ventolin HFA) 108 (90 Base) MCG/ACT inhaler Inhale 2 puffs every 6 (six) hours if needed for wheezing. 18 g Active fluticasone furoate (Arnuity Ellipta) 100 MCG/ACT [...] clean tip and replace cap. 48 g Active Trulicity 3 MG/0.5ML solution auto-injector INJECT ONE PEN (= 3MG) SUBCUTANEOUSLY ONCE A WEEK DIRECTED Active Touivette Max SoloStar 300 UNIT/ML injection INJECT 36 UNITS SUBCUTANEOUSLY AT BEDTIME Active Myrbetriq 50 MG 24 hr tablet Take 50 mg by mouth in the morning. 025 Active amLODIPine (Norvasc) 5 MG tabletIndications :Essential hypertension TAKE 1 TABLET BY MOUTH EVERY MORNING 90 tablet 1 025 Active hydroCHLOROthiazi de 12.5 MG tabletIndications :Essential hypertension TAKE 1 TABLET BY MOUTH EVERY MORNING 90 tablet 1 025 Active insulin aspart FlexPen (NovoLOG) 100 UNIT/ML penIndications:Ty pe 2 diabetes mellitus with diabetic 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 (CMS/HCC) INJECT SUBCUTANEOUSLY THREE TIMES DAILY DIRECTED: 4 UNITS WITH MEALS SMALL, 8 UNITS WITH MEALS MEDIANA, 10 UNITS WITH MEALS MELI AND ADDITIONAL 2 UNITS IF BG>200 MG/DL 15 mL 6 025 Active montelukast (Singulair) 10 MG tablet TAKE 1 TABLET BY MOUTH AT BEDTIME 90 tablet 3 025 Active Aspirin Low Dose 81 MG EC tablet TAKE 1 TABLET BY MOUTH EVERY MORNING 90 tablet 3 025 Active Aspirin Adult Low Strength 81 MG EC tablet TAKE 1 TABLET BY MOUTH EVERY MORNING 90 tablet 3 024 2024 Discontinued Active Problems Problem Noted [...] <100 04/11/2024 IBS (irritable bowel syndrome) 04/11/2024 long-term (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 of insulin 04/11/2024 Mass of [...] diabetic retinopathy 01/17/2019 Overview (02/09/2024): Follows at [facility] Diabetic 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 11/17/2017 Hypertension 10/04/2017 Diabetes mellitus 10/04/2017 Resolved Problems Problem Noted Date Diagnosed Date Resolved Date Diabetic neuropathy 09/22/2023 09/22/2023 12/24/19 Extrinsic asthma without complication 02/19/2023 12/24/2023 Thyroid nodule 09/15/2022 02/19/2023 Encounters Date Type Department Care Team Description 02/13/2025 Refill [facility] MED[facility] [address] [place] [address] Roel Rock MD 01/26/2025 Orders Only GENERIC EXTERNAL DATA DEPARTMENT Provider, Generic External Data 01/05/2025 Orders Only GENERIC EXTERNAL DATA DEPARTMENT Provider, Generic External Data 12/29/2024 Population Health Risk Score [facility] (C3) Department [address] [phone] Provider, Population Health Generic 12/26/2024 Refill [facility] MEDICINE [address] [place] [address] Roel Rock MD 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) 12/20/2024 Refill [facility] MED[facility] [address] [place] [address] Hellen Porter ANP Essential hypertension 12/20/2024 Refill [facility] [address] [place] [address] Roel Rock MD Essential hypertension 12/14/2024 3:30 PM EST Office Visit [facility] OPTOMETRY [address] [place] [address] Levi, Rosa M, OD Diabetic retinopathy of both eyes with macular 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, unspecified retinopathy severity ([facility]) (Primary Dx); Nuclear senile cataract of both eyes; Presbyopia 12/14/2024 Travel 12/12/2024 Telephone [facility] MED[facility] [address] [place] [address] Roel Rock MD January recall from Last 3 Months Immunizations Immunization Administration Dates Next Due Influenza Injectable Quadriv [...] Description 03/05/2025 1:45 PM EDT Office Visit [facility] MED[facility]INE [address] [place] [address] Name, MD Roel [address] [place] [address] Health Maintenance Due Date Last Done Comments [...] patient's age to complete this topic Meningococcal B Vaccine Aged Out No l onger eligible based on patient's age to complete [...] 2 diabetes mellitus, unspecified retinopathy severity (CMS/HCC) POCT GLYCATED HEMOGLOBIN, TOTAL Routine 11/30/2024 10:59 AM EST Type 2 diabetes mellitus with other specified complication, with long-term current use of insulin (CMS/HCC) PERIODIC ORAL EVALUATION - ESTABLISHED PATIENT [...] Whole Blood (01/26/2025 7:48 AM EDT) Pathologist [facility] Glucose, Whole Blood 131(H) 60 - 115 mg/dL [facility] Comment:METER #: [id number] 01/26/2025 7:48 AM EDT 01/26/2025 7:51 AM EDT us Generic External Data Provider LAB BLOOD ORDERAB LES Final Result [facility] [address] [place] [phone] * CBC (01/05/2025 11:40 AM EDT) White Blood Count 6.3 4.8 - 10.8 X10*3/uL [facility] Red Blood Count 4.83 4.20 - 5.50 X10*6/uL [facility] Hemoglobin 13.6 12.0 - 16.0 g/dl [facility] Hematocrit 41.1 37.0 - 47.0 % [facility] Mean Corpuscular Volume 85.1 80.0 - 98.0 fL [facility] Mean Corpuscular Hemoglobin 28.2 27.0 - 33.0 pg [facility] Mean Corpuscular HGB Conc 33.1 31.0 - 35.0 g/dl [facility] Red Cell Distribution Width 12.7 11.0 - 16.0 % [facility] Platelet Count 253 160 - 400 X10*3/uL [facility] Mean Platelet Volume 9.8 9.4 - 12.3 fL [facility] NRBC Pct Auto 0.0 0.0 - 0.2 /100WBC [facility] NRBC Abs Auto 0.000 0.0 - 0.012 X10*3/uL [facility] 01/05/2025 11:4 0 AM EDT 01/05/2025 11:40 AM EDT us Generic External Data Provider LAB BLOOD ORDERAB LES Final Result [facility] [address] [place] [phone] * (ABNORMAL) Basic Metabolic Panel (01/05/2025 11:40 AM EDT) Sodium 141 135 - 145 mmol/L [facility] Potassium 4.1 3.3 - 5.1 mmol/L [facility] Chloride 105 96 - 108 mmol/L [facility] Carbon Dioxide 29 22 - 29 mmol/L [facility] Anion Gap 11(L) 12 - 20 [facility] Urea Nitrogen (BUN) 17(H) 9 - 16 mg/dL [facility] Creatinine, Serum 0.72 0.5 - 1.4 mg/dL [facility] Creatinine Clr Calc Pharmacy 71.1 [facility] Comment:Provided height and weight: 154.94 cm,63.957 kg.eGFR (calculated from the MDRD study equation) and eCrCl(calculated from the Cockcroft-Gault equation) are based ondifferent parameters and may not yield comparable results.If eCrCl result is absurd, please check patient'sheight/weight. Estimated Glomerular Filt Rate >60 [facility] Comment:Chronic Kidney Disea se: Estimated GFR < 60 mL/min/1.24i0Kgqzps Kidney Disease: Estimated GFR < 15 mL/min/1.73m2 Glucose 123(H) 60 - 115 mg/dL [facility] Calcium 9.5 8.4 - 10.2 mg/dL [facility] 01/05/2025 11:4 0 AM EDT 01/05/2025 11:40 AM EDT us Generic External Data Provider LAB BLOOD ORDERAB LES Final Result [facility] [address] [place] [phone] * OCT, Retina - OU - [...] retina specialist as planned. us Rosa M Levi OD OPHTH TOMOGRAPHY Final Result * (ABNORMAL) POCT HGB A1C (11/30/2024 10:59 AM EST) Hemoglobin A1C 6.7(A) 4.0 - 6.0 % QC Media Lot # [id number] Lot# Expiration Date [id number] Blood 11/30/2024 10:5 9 AM EST us Roel Rock MD POINT OF CARE TEST ENTER/EDIT OR DERABLES Final Result * Hepatitis C Antibody with Reflex to HCV, RNA, Quantitative, Real-Time PCR (04/17/2024 11:32 AM EDT) Hepatitis C Antibody Nonreactive Nonreactive [facility] Comment:Antibodies to HCV no t detected; does not exclude early acuteHCV infection. Blood Venous blood specimen / Unknown 04/17/2024 11:32 AM EDT 04/17/2024 1:13 PM EDT Roel Name LAB BLOOD ORDERABLES Final Resul t [facility] [address] [facility] [place] [phone] * BI Mammogram Screening Tomosynthesis Bilateral (03/23/2024 2:50 PM EDT) Anatomical Region Laterality Modality Breast Bilateral Mammography 03/23/2024 2:50 PM EDT Narrative 04/18/2024 8:48 AM EDT ? [facility] ? [address] ?[place] [address] ? Mammography Report ? Signed ? Patient: Anjum Hinds,Lolly De Souza ?MR#: M ?? [id number] ? : 1965 ?Acct:[id number] ? Age/Sex: 59 / F ?ADM Date: 06/06/24 ? Loc: HO.MAMMO ? Attending Dr: Roel Name MD ? Ordering Physician: Name,Roel MD ?Results: 1Negative ? Date of Service: 03/23/24 ?Follow Up: 1 Year From Orig ?? inal Mammogram ? Procedure(s): MM tomosynthesis screening BI ?? Accession Number(s): [id number] ? cc: Name,Roel ORTEGA ? EXAMINATION: ?? [...] Aida Rich MD in OV> ? 04/18/24 08 ? DD/ ? TD/TT: ? Malariologist: ? Procedure Note Bryant, Kike - 04/18/2024 [facility] [address] [place] [address] Dr. [place], [place] [address] Mammography Report Signed Patient: Lolly Mcginnis MMR#: M [id number] : 1965Acct:[id number] Age/Sex: 59 / FADM Date: 03/23/24 Loc: MAMMO Attending Dr: Roel Rock MD Ordering Physician: Roel Rockults: 1Negative Date of Service: 03/23/24Follow Up: 1 Year From Orig ina Mammogram Procedure(s): MM tomosynthesis screening BI Accession Number(s): [id number] cc: Roel Rock MD EXAMINATION: MM SCREENING [...] in OV> 04/18/24 0844 DD/ 1450 TD/TT: Malariologist: Roel Rock MD [facility] BI PROCEDURES Edited Result - Final * Albumin, Random Urine W/Creatinine (02/26/2023 8:39 AM EDT) Creatinine, Random Urine 142 20 - 275 mg/dL [facility] Albumin, Urine 1.9 See Note: mg/dL [facility] Comment: Reference Range: Reference Range Not established Albumin/Creatinin e Ratio, Random Urine 13 <30 mcg/mg creat [facility] Comment: The ADA defines abnormalities in albumin [...] MD LAB URINE ORDERABLES Final Resul t [address], [place] [address] [facility] [address] [place] [address] * Lipid Panel, Standard (02/26/2023 8:39 AM EDT) Cholesterol, Total 181 <200 mg/dL [facility] [place] [facility] [employer] HDL Cholesterol 74 > OR = 50 mg/dL [facility] Triglycerides 62 <150 mg/dL [facility] LDL Cholesterol 93 mg/dL (calc) [facility] Comment: Reference range: <100 Desirable range <100 mg/dL for primary prevention; ?? <70 mg/dL for patients with CHD or diabetic patients with > or = 2 CHD risk factors. LDL-C is now calculated using the Edmar-Babs calculation, which is a validated novel method providing better accuracy than the Friedewald equation in the estimation of LDL-C. Edmar SS et al. JERSON. 2013;310(19): 2067-5946 (http://education.Medical Met[employer]/faq/MVX350) Chol/HDLC Ratio 2.4 <5.0 (calc) [facility] Non-HDL Cholesterol 107 <130 mg/dL (calc) [facility] Comment: For patients with diabetes plus 1 major ASCVD risk factor, treating to a non-HDL-C goal of <100 mg/dL (LDL-C of <70 mg/dL) is considered a therapeutic option. Blood Venous blood specimen / Unknown 02/26/2023 8:39 AM EDT 02/26/2023 8:40 AM EDT Narrative [facility] - 02/26/2023 10:35 PM EDT FASTING:YES FASTING: YES us Roel Rock MD LAB BLOOD ORDERABLES Final Resul t [address], [place] [address] [facility] [employer] [address] [place] [phone] * Image-Guided Pap with Age-Based Screening Protocols (01/13/2023 11:48 AM EDT) Comment [facility] Comment: This order for age-based cervical cancer and STI screening follows ACOG guidelines(PB 168, 140, VSJ270). See individual assays for performing site location. Clinical Information: None given [facility] LMP: NONE GIVEN [facility] Prev. PAP: NONE GIVEN [facility] Prev. BX: NONE GIVEN [facility] SOURCE: None given [facility] Statement Of Adequacy: SATISFACTORY FOR EVALUATION [facility] Interpretation/Re sult: [facility] Comment: Negative for intraepithelial lesion or malignancy. Atrophic pattern; predominantly parabasal cells COMMENT: This Pap test has been evaluated with computer assisted technology. [facility] German Teacher: Arie [employer] Comment: SXA, CT(ASCP) CT screening location: [address] ??[phone] (Always Message) [facility] [employer] Comment: EXPLANATORY NOTE: The Pap is a [...] HPV nRNA E6/E7 Not Detected Not Detected [facility] Comment: Methodology: Speedboat Operator-Mediated Amplification This assay detects E6/E7 viral messenger RNA (mRNA) from 14 high-risk HPV types (16,18,31,33,35,39,45,51,52,56,58,59,66,68). Cervical sources are required for HPV testing. If a vaginal source from a patient who has had a total hysterectomy with removal of cervix was submitted, please contact the testing laboratory for alternative testing options. For additional information, please refer to http://education.Stayful/faq/REI355c2 (This link if provided for information/ educational purposes only.) Cytology specimen container (physical object) 01/13/2023 11:48 AM EDT 01/14/2023 2:03 AM EDT Erica Joseph [facility] LAB BLOOD ORDERABLES Janis kaba Result [facility] [address], [place] [address] [facility] [address] [place] [address] * Hm Colonoscopy (11/14/2018 4:17 PM EST) Colonoscopy Normal Normal Narrative Ami Giraldo - 11/14/2018 4:17 PM EST Recommended 5 year follow up Historical Provider MD HEALTH MAINTENANCE Final Result from Last 3 Months or Most Recently Relevant to Health Maintenance Insurance [address] [place] [address] [facility] AD[facility] Care Teams Watershed Engineer Relationship Specialty Start Date End Date Name, MD Roel [address] [place] [address] PCP - General Family Medicine 10/04/17
--- OUTSIDE RECORDS SUMMARY | 2025-03-01 16:24 | XMS_ITS | Encounter Summary ---
Author Organization [employer] [facility] Address [address] [facility] 7t [place] [address] Care Team Providers Care Horse Breaker Name Role Phone Name, Roel ORTEGA Primary Care Provider [phone] Encounter Details Date Type Department Care Team (Late st Contact Info) Description 03/18/2023 Abstract [facility] [address] [place] [phone] Name, MD Roel [address] [place] [address] Social History Tobacco Use Types Packs/Day Years [...] Upcoming Encounters Date Type Department Care Team ([facility] Contact Info) Description 03/05/2025 1:45 PM EDT Office Visit [facility] [address] [place] [address] Name, MD Roel [address] [place] [address] documented as of this encounter Procedures Procedure Name Priority Date/Time Associated Diagnosis Comments COLONOSCOPY Routine 11/14/2018 4:17 PM EST documented in this encounter Results * Hm Colonoscopy (11/14/2018 4:17 PM EST) [...] documented as of this encounter Care Teams Horse Breaker Relationship Specialty Start Date End Date Name, [place] [address] PCP - General Family Medicine 10/04/17 documented as of this encounter
--- OUTSIDE RECORDS SUMMARY | 2025-03-01 16:24 | XMS_ITS | Encounter Summary ---
Author Organization [employer] Address [address] [facility] 7t [place] [address] Care Team Providers Care Used Car Lot Porter Name Role Phone Name, Roel ORTEGA Primary Care Provider [phone] Encounter Details Date Type Department Care Team ([facility] st Contact Info) Description 07/06/2023 Telephone [facility] [address] [place], [place] [phone] Name, MD Roel [address] [place] [address] Social History Tobacco Use Types Packs/Day Years [...] letter to schedule f/u appointment with coleen. Machine Plug Shaper does not see any documentation on letter or recall. Please contact pt at [phone] (Vietnamese) documented in this encounter Plan of Treatment Upcoming Encounters Date Type Department Care Team (Late st Contact Info) Description 03/05/2025 1:45 PM EDT Office Visit [facility] MED[facility] [address] [place] [address] Name, MD Roel [address] [place] [address] documented as of this encounter Visit Diagnoses Not on filedocumented in this encounter Additional Health Concerns Assessment Noted Time PHQ-9 Depression Total Score: 0 11/03/19 23 8:54 AM EST documented as of this encounter Care Teams Used Car Lot Porter Relationship Specialty Start Date End Date Name, MD Roel [address] [place] [address] PCP - General Family Medicine 10/04/17 documented as of this encounter
--- OUTSIDE RECORDS SUMMARY | 2025-03-01 16:24 | XMS_ITS | Encounter Summary ---
Author Organization [employer] Address [address] [facility] 7t [place] [address] Care Team Providers Care Corporate Security Manager Name Role Phone NameRoel MD Primary Care Provider [phone] Reason for Visit * Reason Onset Date Comments Appointment Request 12/09/2023 Encounter Details Date Type Department Care Team ([facility] st Contact Info) Description 12/09/2023 Telephone [facility] [address] [place], [place] [phone] Name, MD Roel [address] [place] [address] Appointment Request Social History Tobacco Use Types [...] Description 03/05/2025 1:45 PM EDT Office Visit [facility] [address] [place] [address] Name, MD Roel [address] [place] [address] documented as of this encounter Visit Diagnoses Not on filedocumented in this encounter Additional Health Concerns Assessment Noted Time PHQ-9 Depression Total Score: 0 11/03/19 23 8:54 AM EST documented as of this encounter Care Teams Corporate Security Manager Relationship Specialty Start Date End Date Name, MD Roel [address] [place] [address] PCP - General Family Medicine 10/04/17 documented as of this encounter
--- OUTSIDE RECORDS SUMMARY | 2025-03-01 16:24 | XMS_ITS | Encounter Summary ---
Author Organization [employer] Address [address] [facility] 7t [place] [address] Care Team Providers Care Search Strategist Name Role Phone Name, Roel ORTEGA Primary Care Provider [phone] Reason for Visit * Reason Comments Med Refill Encounter Details Date Type Department Care Team (Late st Contact Info) Description 06/05/2024 Refill [facility] [address] [place], [place] [phone] Name, MD Roel [address] [place] [address] Essential hypertension Social History Tobacco Use Types [...] Description 03/05/2025 1:45 PM EDT Office Visit [facility] [address] [place] [address] NameRoel MD [address] [place] [address] documented as of this encounter Visit Diagnoses Diagnosis Essential hypertension Unspecified essential hypertension documented in this encounter Additional Health Concerns Assessment Noted Time PHQ-9 Depression Total Score: 0 12/31/19 24 10:54 AM EDT documented as of this encounter Care Teams Search Strategist Relationship Specialty Start Date End Date NameRoel MD [address] [place] [address] PCP - General Family Medicine 10/04/17 documented as of this encounter
--- OUTSIDE RECORDS SUMMARY | 2025-03-01 16:24 | XMS_ITS | Encounter Summary ---
Author Organization [facility] [facility] Address [address] [facility] 7t [place] [address] Care Team Providers Care Corner Former Name Role Phone Name, Roel ORTEGA Primary Care Provider [phone] Encounter Details Date Type Department Care Team (Late st Contact Info) Description 03/19/2023 Abstract [facility] MEDICINE [address] [place] [address] Name, MD Roel [address] [place] [address] Social History Tobacco Use Types Packs/Day Years [...] Upcoming Encounters Date Type Department Care Team ([facility] Contact Info) Description 03/05/2025 1:45 PM EDT Office Visit [facility] MEDICINE [address] [place] [address] Name, MD Roel [address] [place] [address] documented as of this encounter Visit Diagnoses Not on filedocumented in this encounter Additional Health Concerns Assessment Noted Time PHQ-9 Depression Total Score: 0 11/03/19 23 8:54 AM EST documented as of this encounter Care Teams Corner Former Relationship Specialty Start Date End Date Name, MD Roel [address] [place] [address] PCP - General Family Medicine 10/04/17 documented as of this encounter
--- OUTSIDE RECORDS SUMMARY | 2025-03-01 16:24 | XMS_ITS | Encounter Summary ---
Author Organization [employer] [facility] Address [address] [facility] 7t [place] [address] Care Team Providers Care Search Consultant Name Role Phone Name, Roel ORTEGA Primary Care Provider [phone] Encounter Details Date Type Department Care Team (Late st Contact Info) Description 12/18/2022 Abstract [facility]ULT [facility] [address] [place] [address] Najma Interiano, DDS [address] [place] [address] Social History Tobacco Use Types Packs/Day Years [...] Description 03/05/2025 1:45 PM EDT Office Visit [facility] [address] [place] [address] Name, MD Roel [address] [place] [address] documented as of this encounter Visit Diagnoses Not on filedocumented in this encounter Additional Health Concerns Assessment Noted Time PHQ-9 Depression Total Score: 0 11/03/19 23 8:54 AM EST documented as of this encounter Care Teams Search Consultant Relationship Specialty Start Date End Date Name, MD Roel [address] [place] [id number] PCP - General Family Medicine 10/04/17 documented as of this encounter
--- OUTSIDE RECORDS SUMMARY | 2025-03-01 16:24 | XMS_ITS | Encounter Summary ---
Author Organization [employer] [facility] Address [address] [place] [address] 7t [place] [address] Care Team Providers Care Sandstone Splitter Name Role Phone Name, Roel ORTEGA Primary Care Provider [phone] Encounter Details Date Type Department Care Team (Late st Contact Info) Description 09/15/2022 Abstract [facility] ADULT DENTAL [address] [place] [address] Dental, Provider, DDS Social History Tobacco Use [...] Description 03/05/2025 1:45 PM EDT Office Visit [facility] MEDICINE [address] [place] [address] Name, MD Roel [address] [place] [address] documented as of this encounter Visit Diagnoses Not on filedocumented in this encounter Care Teams Sandstone Splitter Relationship Specialty Start Date End Date Roel Rock MD [address] [place] [address] PCP - General Family Medicine 10/04/17 documented as of this encounter
--- OUTSIDE RECORDS SUMMARY | 2025-03-01 16:24 | XMS_ITS | Encounter Summary ---
Author Organization [employer] Address [address] [facility] 7t [place] [address] Care Team Providers Care Evaporator Operator Name Role Phone NameRoel MD Primary Care Provider [phone] Reason for Visit * Reason Onset Date Comments Results 04/19/2024 Encounter Details Date Type Department Care Team ([facility] st Contact Info) Description 04/19/2024 Telephone [facility] MEDICINE [address] [place], [place] [phone] Name, MD Roel [address] [place] [address] Results Social History Tobacco Use Types Packs/Day [...] t he electric, gas, oil or water [employer] threatened to shut off services in your [...] Description 03/05/2025 1:45 PM EDT Office Visit [facility] MED[facility]INE [address] [place] [address] Name, MD Roel [address] [place] [address] documented as of this encounter Visit Diagnoses Not on filedocumented in this encounter Additional Health Concerns Assessment Noted Time PHQ-9 Depression Total Score: 0 12/31/19 24 10:54 AM EDT documented as of this encounter Care Teams Evaporator Operator Relationship Specialty Start Date End Date Name, MD Roel [address] [place] [address] PCP - General Family Medicine 10/04/17 documented as of this encounter
--- OUTSIDE RECORDS SUMMARY | 2025-03-01 16:24 | XMS_ITS | Encounter Summary ---
Demographics Address [address] [place] [address] [address] [place] [address] Work Phone Home Phone Mobile Phone Preferred Language es Marital Status Single Nondenominational Affiliation Unknown Race Other Race Ethnic Group Unknown Author Organization [employer] [facility] Address [address] [facility] 7t [place] [address] Care Team Providers Care Offset Platemaker Name Role Phone NameRoel MD Primary Care Provider [phone] Encounter Details Date Type Department Care Team [...] EDT Office Visit [facility] [address] [place] [address] NameRoel MD [address] [place] [address] documented as of this encounter Visit Diagnoses Not on filedocumented in this encounter Care Teams Offset Platemaker Relationship Specialty Start Date End Date Roel Rock MD [address] [place] [address] PCP - General Family Medicine 10/04/17 documented as of this encounter
--- NOTE | 2025-03-01 16:27 | A.OFFVIS_ITS ---
Vital Signs 03/01/25 16:28 Height 5 ft 2 in Weight 145 lb BMI 26.5 BP 126/72 Blood Pressure Location Rt brachial Position Sitting Pulse 88 Pulse Source Pulse Oximeter Pulse Oximetry (%) 97 Oxygen Delivery Method Room Air Intake Visit Reasons: Follow up abd pain Intake Note: ESTABLISHED PATIENT for mgmt of GERD + Abd pain. SHARIF 2022. CC; C/O persistence of GERD despite taking tx. Epigastric pain also reported. Pt denies any difficulties with BM at this time. No additional sx or concerns reported. National Sales Consultant Required: Yes National Sales Consultant Services: National Sales Consultant Present National Sales Consultant Name: [id number] Information Interpreted: clinical only Accompanied by: Self / Same As Patient Allergies metformin Adverse Reaction (Mild, Verified 03/01/25 16:35) stomach upset HPI HPI Follow up abd pain: Details: Assessment & Plan (1) GERD (gastroesophageal reflux disease): Code(s): K21.9 - Gastro-esophageal reflux disease without esophagitis Plan: Turkmen #Linda, Live She continues to do well! I make her aware we will be discussing repeat colonoscopy at her next visit. She continues with her omeprazole qd, reglan tid and senna with good control of all of her GI symptoms including N/V. Her swallowing has benefitted from the dicyclomine for her esophageal spasm. ROV 6 mos. (2) Esophageal spasm: Code(s): K22.4 - Dyskinesia of esophagus (3) Gastroparesis: Code(s): K31.84 - Gastroparesis (4) Tubular adenoma of colon: Comment: 2019 scope repeat in 2023 Code(s): D12.6 - Benign neoplasm of colon, unspecified Medications: Refilled dicyclomine 20 mg PO .TIDAC 30 days 90 tabs 6RF K22.4 - Dyskinesia of esophagus metoclopramide HCl (Reglan) 5 mg PO QIDACHS 30 days 120 tabs 6RF K31.84 - Gastroparesis omeprazole 20 mg PO DAILY 30 caps 6RF K21.9 - Gastro-esophageal reflux disease without esophagitis, K31.84 - Gastroparesis sennosides (senna) 17.2 mg (2 x 8.6 mg) PO BEDTIME 60 tabs 4RF for constipation TODAYS VISIT Turkmen #[id number] Patient has been lost to follow-up since 02/2023 She says that her stomach is quite sore and she has been havng a stomach ache and GERD with reflux and vomiting. This has been worse over the past 3 weeks. This does seem to coincide with when she started the oxycodone. It is likely that if this is exacerbating her gastroparesis so will increase her Reglan from 5 mg to 10 mg and her omeprazole from 20 mg to 40 mg. If this is not successful we may need to consider additional testing. In the past she was on omeprazole 20 mg once a day, Reglan 5 mg 4 times a day, dicyclomine, and senna. She denies any problems with moving her bowels. ROV 3 weeks. [facility] Medical History (Updated 03/01/25 @ 17:03 by CHRISTOPHER Farr) Esophageal spasm Left shoulder pain Right wrist pain Mass of soft tissue of right upper extremity Difficulty swallowing Asthma Neuropathy Mild pulmonary hypertension Atypical chest pain Venous insufficiency Diabetic retinopathy associated with type 2 diabetes mellitus Diabetic 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 associated with type 2 diabetes mellitus FPC (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 of insulin Papillary microcarcinoma of thyroid Gastroparesis Post-surgical hypothyroidism Gallstones Uninodular goiter Arthritis Retinopathy Depression Diabetes mellitus with hyperglycemia Type 2 diabetes mellitus with diabetic neuropathy, unspecified Hyperlipidemia LDL goal <100 Essential hypertension Vitamin D deficiency Surgical History (Updated 03/01/25 @ 17:03 by CHRISTOPHER Farr) S/P appendectomy Hx of tubal ligation Hx of appendectomy History of bladder surgery H/O colonoscopy H/O thyroidectomy Hx of eye surgery History of esophagogastroduodenoscopy (EGD) History of cholecystectomy Family History Father No problems noted. Mother Diabetes mellitus Daughter Diabetes mellitus Social History Household Members: Family Housing: House Are you a primary healthcare technician to a significant other at home: No Do you presently have visiting nurse or other home services: No Alcohol intake: current Alcohol intake frequency: does not drink Comment: rings appropriately Patient Tobacco Use Status: Never used Tobacco Second Hand Smoke Exposure: No service: No Current occupational status: disabled Current occupation: right handed Female Reproductive History Menstrual Age of Menarche: 8 Review of Systems Const Denies fatigue, Denies fever(s), Denies night sweats, Denies poor appetite and Denies weight loss ENT Reports Normal hearing present, Denies dental pain, Denies dysphagia, Denies hearing loss, Denies mouth pain, Denies odynophagia, Denies throat swelling, Denies tongue swelling and Reports other (Dentition adequate) Card Reports no additional complaints Resp Reports no additional complaints GI Details: Reports abdominal pain, Denies melena, Reports bloating, Denies hematochezia, Denies constipation, Denies GI cramping, Denies dysphagia, Denies excessive flatus, Denies early satiety, Reports heartburn, Denies diarrhea, Reports nausea, Denies odynophagia, Reports vomiting and Denies hematemesis Musc Reports arthralgias and Reports stiffness Skin/Breast Denies pruritus, Denies lesions, Denies rash and Denies jaundice Neuro Reports Normal hearing present and Denies Abnormal speech present Endo Denies fatigue Aller/Immun Denies throat swelling and Denies tongue swelling Physical Exam Vital Signs: BMI result Body Mass Index 26.5 Const General: cooperative, no acute distress, well developed and well groomed Nutritional Appearance: average body habitus and well nourished Orientation/consciousness: oriented to person, oriented to place and oriented to time Limitations: language barrier HEENT Head: Yes normocephalic and Yes atraumatic Eyes General: appearance normal, both eyes and all related structures Pupils: Equal, round and reactive pupils present Neck Neck: Yes normal visual inspection and Yes no lymphadenopathy Thyroid: Thyroid normal Resp Effort & Inspection: normal respiratory effort and able to speak in complete sentences Auscultation: clear to auscultation bilaterally Cardio Rate: regular rate Rhythm: regular rhythm Heart sounds: Normal, physiologic split S2 sound present Peripheral pulses: radial pulses present and posterior tibial pulses present GI Inspection: No distended and No Abdominal panniculus present Palpation (GI): Soft to palpation, nontender, no guarding, not rigid and No hepatosplenomegaly present Percussion: Yes normal to percussion Auscultation: normal bowel sounds Rectal Exam - Female: deferred Skin General skin exam: no rashes or lesions noted, turgor normal, skin not dry, no jaundice, No spider nevi and no striae Rashes: no rashes Nails: normal Neuro General: oriented to person, oriented to place and oriented to time Cranial nerves: Yes Equal, round and reactive pupils present and Yes Normal hearing present Speech: No Abnormal speech present Extrem General: Yes normal to inspection, No clubbing, No cyanosis and No edema Psych Appearance: grossly normal and well kempt Mental Status: mental status grossly normal Speech and movement: Normal speech and movement present Affect: normal affect Attitude: cooperative Thought process: Normal thought process present and not confabulating Thought content: Normal thought content present Insight: Limited insight present (Psych) Judgement: Limited judgement present (Psych) Assessment & Plan Assessment & Plan (1) Gastroparesis: Code(s): K31.84 - Gastroparesis Category: Medical (2) IBS (irritable bowel syndrome): Code(s): K58.9 - Irritable bowel syndrome, unspecified Category: Medical (3) Constipation: Code(s): K59.00 - Constipation, unspecified Category: Medical Plan Turkmen #[id number], Ninoska Patient has been lost to follow-up since 02/2023 She says that her stomach is quite sore and she has been havng a stomach ache and GERD with reflux and vomiting. This has been worse over the past 3 weeks. T his does seem to coincide with when she started the oxycodone. It is likely that if this is exacerbating her gastroparesis so will increase her Reglan from 5 mg to 10 mg and her omeprazole from 20 mg to 40 mg. If this is not successful we may need to consider additional testing. In the past she was on omeprazole 20 mg once a day, Reglan 5 mg 4 times a day, dicyclomine, and senna. She denies any problems with moving her bowels. ROV 3 weeks. Medications: New omeprazole 40 mg PO DAILY 30 days 30 caps 3RF sennosides (senna) 17.2 mg (2 x 8.6 mg) PO BEDTIME PRN 60 tabs 6RF for constipation metoclopramide HCl (Reglan) 10 mg PO QIDACHS 120 tabs 3RF K31.84 - Gastroparesis Refilled docusate sodium (Colace) 100 mg PO BID PRN 30 caps 6RF constipation dicyclomine 20 mg PO .TIDAC 30 days 90 tabs 6RF K22.4 - Dyskinesia of esophagus Coding Level of Care Code Est Pt Level 3 (85863) Diagnoses Gastroparesis K31.84 IBS (irritable bowel syndrome) K58.9 Constipation K59.00
[2025-03-01 16:28] VITALS: BP 126/72; PULSE 88; O2SAT 97; BMI 26.5
== END 2025-03-01 16:57 | disposition home or self-care (01) ==
LOC: HO.HGI 16:22
PROVIDERS: PCP Internal Medicine Geriatric Medicine; Visit Provider Nurse Practitioner
DX: K31.84 Gastroparesis (principal); K58.9 Irritable bowel syndrome, unspecified; K59.00 Constipation, unspecified
CPT/HCPCS: 99213

== ENCOUNTER → 2025-03-01 16:22 | Outpatient (BNVA) | payer MEDICAID, SELFPAY | PROVIDERS: PCP Internal Medicine Geriatric Medicine; Visit Provider Nurse Practitioner | DX: K31.84 Gastroparesis (principal); K58.9 Irritable bowel syndrome, unspecified; K59.00 Constipation, unspecified | CPT/HCPCS: 99212 ==

== ENCOUNTER 2025-03-07 09:44 | Outpatient (AMB) | payer MEDICAID, SELFPAY ==
--- NOTE | 2025-03-07 09:49 | A.OFFVIS_ITS ---
Vital Signs 03/07/25 09:50 Height 5 ft 2 in Weight 138 lb 14.259 oz BMI 25.4 BP 122/64 Blood Pressure Location Rt brachial Position Sitting Pulse 88 Pulse Source Pulse Oximeter Pulse Oximetry (%) 100 Intake Visit Reasons: T2DM Intake Note: Patient presents today for a follow-up on Type 2 Diabetes Mellitus: Last Diabetic Eye Exam: 02/2024, coming up appt this month Last Podiatry Exam- Does not see a Die Tester Most recent HbA1c- 6.5%, 03/07/2025 Random Glucose- 150 mg/dL, Today Employee Development Director Required: Yes Employee Development Director Language: [employer]: Employee Development Director Present ([employer]) Employee Development Director Name: # [id number] Accompanied by: Self / Same As Patient Allergies metformin Adverse Reaction (Mild, Verified 03/01/25 16:35) stomach upset Medication List - Last Reconciled 03/07/25 by Mila Mast MD acetaminophen 500 mg PO Q6H PRN albuterol sulfate 2.5 mg inhalation Q6H PRN albuterol sulfate 90 mcg/actuation 2 puffs inhalation Q4-6H PRN amlodipine 5 mg PO DAILY aspirin (Adult Low Dose Aspirin) 81 mg PO DAILY cholecalciferol (vitamin D3) (Vitamin D3) 50 mcg PO DAILY dicyclomine 20 mg PO .TIDAC 30 days docusate sodium (Colace) 100 mg PO BID PRN dulaglutide (Trulicity) 3 mg (0.5 mL) subcut QWEEK empagliflozin (Jardiance) 25 mg PO QAM enalapril maleate 20 mg PO BEDTIME flash glucose scanning reader (FreeStyle Rama 2 [place]) As directed flash glucose sensor (FreeStyle Rama 2 Sensor kit) As directed change every 2 weeks FreeStyle Lancets (lancets) four times daily NS FreeStyle Lite Meter (blood-glucose meter) As directed NS FreeStyle Lite Strips (blood sugar diagnostic) TEST BLOOD SUGAR FOUR TIMES DAILY NS gabapentin 300 mg PO BEDTIME hydrochlorothiazide 12.5 mg PO DAILY hydroxychloroquine 200 mg PO BID ibuprofen 600 mg PO Q8H PRN insulin aspart U-100 4 units small meals, 8 medium meals and 10 units large meals, + 2 units for bg over 200 subcut 3 times a day; subcut 3 times a day; 30 days insulin glargine U-300 conc (Toujeo Max U-300 SoloStar) 32 units subcut BEDTIME levothyroxine 88 mcg PO DAILY 90 days metformin 1/2 tablet PO daily; metoclopramide HCl (Reglan) 10 mg PO QIDACHS montelukast 10 mg PO BEDTIME omeprazole 40 mg PO DAILY 30 days ondansetron 4 mg PO Q6-8H PRN oxycodone 5 mg PO Q4H PRN pen needle, diabetic (BD Ultra-Fine Sandy Pen Needle) USE DIRECTED FOUR TIMES DAILY pioglitazone 30 mg PO QAM pravastatin 20 mg PO BEDTIME sennosides (senna) 17.2 mg (2 x 8.6 mg) PO BEDTIME PRN sertraline 100 mg PO QAM trazodone 100 mg PO BEDTIME PRN HPI Comments Details: Patient is 59 yo female with DM type 2 diagnosed around 2004 who presents for continued management of diabetes. Past Medical History includes: hypertension, HLD arthritis, depression, uninodular goiter s/p thyroidectomy with papillary microcarcinoma), gastroparesis Current diabetes medications include: Metformin 250mg daily (intolerant higher doses) Jardiance 25 mg Actos 30mg, Truilcity 3mg, Toujeo 30 units Humalog will be 4 small meals, 8 units for medium meals and 12 units for a large meal = 2 units if BG>200 TIDcc Micro and Macro Vascular Complications: neuropathy, +alb/cr, retinopathy, gastroparesis Blood Glucose Monitoring: Rama download GMI 6.4% TGT 90% high 10%. No hypoglycemia. A1C 6.5% from 7.1 from 7.3. Eye Exam-February 2024 undergoing VEGF treatment for retinopathy No podiatry. +mild neuropathy well managed on gabapentin On levothyroxine 88 ug QD for post-surgical hypothyroidism for papillary microcarcinoma ROS CONSTITUTIONAL: Denies weight loss, fever and chills. HEENT: Denies changes in vision and hearing. RESPIRATORY: Denies SOB and cough. CV: Denies palpitations and CP GI: Denies abdominal pain, nausea, vomiting and diarrhea. : Denies dysuria and urinary frequency. MSK: Denies new myalgia and joint pain. SKIN: Denies rash and pruritus. NEUROLOGICAL: Denies headache PSYCHIATRIC: Denies recent changes in mood. PHYSICAL EXAM: GENERAL: Alert and oriented x 3. NAD EYES: EOMI. Anicteric. HENT: Moist mucous membranes. No scleral icterus. No cervical lymphadenopathy. LUNGS: Clear to auscultation bilaterally. CARDIOVASCULAR: Regular rate and rhythm. . ABDOMEN: Soft, non-tender +bs EXTREMITIES: No edema. Non-tender. 2+DP pulses SKIN: No rashes or lesions. Warm. NEUROLOGIC: No focal neurological deficits. CN II-XII grossly intact PSYCHIATRIC: Cooperative. 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 exterminator (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 of insulin Papillary microcarcinoma of thyroid Gastroparesis Post-surgical hypothyroidism Gallstones Uninodular goiter Arthritis Retinopathy Depression Diabetes mellitus with hyperglycemia Type 2 diabetes mellitus with diabetic neuropathy, unspecified Hyperlipidemia LDL goal <100 Essential hypertension Vitamin D deficiency Surgical History (Updated 03/01/25 @ 17:03 by CHRISTOPHER Farr) S/P appendectomy Hx of tubal ligation Hx of appendectomy History of bladder surgery H/O colonoscopy H/O thyroidectomy Hx of eye surgery History of esophagogastroduodenoscopy (EGD) History of cholecystectomy Family History Father No problems noted. Mother Diabetes mellitus Daughter Diabetes mellitus Social History Household Members: Family Housing: House Are you a primary day care center director to a significant other at home: No Do you presently have visiting nurse or other home services: No Alcohol intake: current Alcohol intake frequency: does not drink Comment: rings appropriately Patient Tobacco Use Status: Never used Tobacco Second Hand Smoke Exposure: No service: No Current occupational status: disabled Current occupation: right handed Female Reproductive History Menstrual Age of Menarche: 8 Physical Exam Vital Signs: Last Vital Signs Pulse 88 03/07/25 09:50 BP 122/64 03/07/25 09:50 Pulse Ox 100 03/07/25 09:50 BMI result Body Mass Index 25.4 Results AMB Hemoglobin A1c AMB Hemoglobin A1c 6.5 % Last Edit by RAJEEV Fernández on 03/07/25 10:08 Results Reviewed Results Reviewed: Laboratory Last Values Glucose (Clinic) 150 mg/dL (60-115) H 03/07/25 09:54 Hgb A1c (Clinic) 6.5 % (4.0-6.0) H 03/07/25 09:57 Assessment & Plan Assessment & Plan (1) Diabetic retinopathy associated with type 2 diabetes mellitus: Code(s): E11.319 - Type 2 diabetes mellitus with unspecified diabetic retinopathy without macular edema Category: Medical Qualifiers: Diabetic retinopathy severity: with unspecified retinopathy severity Diabetes mellitus macular edema: macular edema presence unspecified Laterality: unspecified laterality Qualified Code(s): E11.319 - Type 2 diabetes mellitus with unspecified diabetic retinopathy without macular edema (2) Diabetic 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 associated with type 2 diabetes mellitus: Code(s): E11.42 - Type 2 diabetes mellitus with diabetic 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 Category: Medical (3) jail (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 of insulin: Code(s): Z79.4 - rat exterminator (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 of insulin Category: Medical (4) Papillary microcarcinoma of thyroid: Code(s): C73 - Malignant neoplasm of thyroid gland Category: Medical Plan Congratulated on interval diabetic control. Upcoming eye exam Continue current medications. return in 3 months for diabetic follow up History of thyroid cancer. Labs ordered Orders: Orders AMB Hemoglobin A1c Today E11.40 - Type 2 diabetes mellitus with diabetic neuropathy, unspecified, Z79.4 - rat exterminator (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 of insulin Thyroglobulin Tumor Marker 10 Weeks E03.9 - Hypothyroidism, unspecified, E11.42 - Type 2 diabetes mellitus with diabetic 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 Hemoglobin A1c 10 Weeks E03.9 - Hypothyroidism, unspecified, E11.42 - Type 2 diabetes mellitus with diabetic 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 TSH reflex Free T4 10 Weeks E03.9 - Hypothyroidism, unspecified, E11.42 - Type 2 diabetes mellitus with diabetic 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 Coding Level of Care Code Est Pt Level 3 (70651) Complex EM visit Add On G2211 Diagnoses Diabetic retinopathy associated with type 2 diabetes mellitus, macular edema presence unspecified, unspecified laterality, unspecified retinopathy severity E11.319 Diabetic retinopathy severity: with unspecified retinopathy severity Diabetes mellitus macular edema: macular edema presence unspecified Laterality: unspecified laterality Diabetic 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 associated with type 2 diabetes mellitus E11.42 rat exterminator (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 of insulin Z79.4 Papillary microcarcinoma of thyroid C73
[2025-03-07 09:50] VITALS: BP 122/64; PULSE 88; O2SAT 100; BMI 25.4
[2025-03-07 09:58] LABS: Glucose, Whole Blood 150 mg/dL (60-115)
--- OUTSIDE RECORDS SUMMARY | 2025-03-07 11:03 | XMS_ITS | Encounter Summary ---
Demographics Address [address] [place] [address] [address] [place] [address] Work Phone Home Phone Mobile Phone Preferred Language es Marital Status Single Judaism Affiliation Unknown Race Other Race Ethnic Group Unknown Author Organization [employer] Address [address] [facility] [address] [place] [address] Care Team Providers Care Maintenance And Repair Worker Name Role Phone NameRoel MD Primary Care Provider [phone] Reason for Visit * Reason Comments Follow-up Encounter Details Date Type Department Care Team ([facility] st Contact Info) Description 03/05/2025 1:45 PM EDT Office Visit [facility] [address] [place] [address] Name, MD Roel [address] [place] [address] Type 2 diabetes mellitus with other specified complication, with long-term current use of insulin ([facility]) (Primary Dx); Impingement syndrome of left shoulder Social History Tobacco Use Types Packs/Day Years [...] Answer Date Recorded Patient Health Questionnaire-9 Score 9 03/05/2025 Patient Health Questionnaire-9 Score 9 03/05/2025 Last PHQ-9: Questionnaire Data Not on file 0 03/05/2025 Housing Stability Answer Date Recorded What is [...] Answer Date Recorded Patient Health Questionnaire-2 Score 5 03/05/2025 Internet Access Answer Date Recorded Internet Access [...] Sign Reading Time Taken Comments Blood Pressure 134/73 03/05/2025 1:54 PM EDT Pulse 90 03/05/2025 1:54 PM EDT Temperature 36.3 ??C (97.3 ??F) 03/05/2025 1:54 PM ED T Respiratory Rate 14 03/05/2025 1:54 PM EDT Oxygen Saturation 98% 03/05/2025 1:54 PM EDT Inhaled Oxygen Concentration - - Weight 63.5 kg (140 lb) 03/05/2025 1:54 PM EDT Height 157.5 cm (5' 2 ) 03/05/2025 1:54 PM EDT Body Mass Index 25.61 03/05/2025 1:54 PM EDT documented in this encounter Functional Status * Over the past 2 weeks, how often have you been bothered by any of the following problems? Question Answer Date of Assessment Author Patient Health Questionnaire -2 Score 5 03/05/2025 2:25 PM EDT Naila Caraballo MA * Little interest or pleasure in doing things Answer Date of Assessment Author Nearly every day 03/05/2025 2:25 PM EDT Cathy Caraballo MA * Feeling down, depressed, or hopeless Answer Date of Assessment Author More than half the days 03/05/2025 2:25 PM EDT Cathy Tucker MA * Trouble falling or staying asleep, or sleeping too much Answer Date of Assessment Author More than half the days 03/05/2025 2:25 PM EDT Cathy Tucker MA * Feeling tired or having little energy Answer Date of Assessment Author Several days 03/05/2025 2:25 PM EDT Cathy Caraballo MA * Poor appetite or overeating Answer Date of Assessment Author Several days 03/05/2025 2:25 PM EDT Cathy Caraballo MA * Feeling bad about yourself - or that you are a failure or have let yourself or your family down Answer Date of Assessment Author Not at all 03/05/2025 2:25 PM EDT Cathy Caraballo MA * Trouble concentrating on things, such as reading the newspaper or watching television Answer Date of Assessment Author Not at all 03/05/2025 2:25 PM EDT Cathy Caraballo MA * Moving or speaking so slowly that other people could have noticed? Or the opposite - being so fidgety or restless that you have been moving around a lot more than usual. Answer Date of Assessment Author Not at all 03/05/2025 2:25 PM EDT Cathy Caraballo MA * Thoughts that you would be better off or hurting yourself in some way Answer Date of Assessment Author Not at all 03/05/2025 2:25 PM EDT Cathy Caraballo MA * Patient Health Questionnaire-9 Score Answer Date of Assessment Author 9 03/05/2025 2:25 PM EDT Caraballo, Franchezka, MA * How difficult have these problems made it for you to do your work, take care of things at home, or get along with other people? Answer Date of Assessment Author Not difficult at all 03/05/2025 2:25 PM EDT Cathy Bill MA documented as of this encounter Progress Notes * Roel Rock MD - 03/05/2025 1:45 PM EDT Subjective Patient ID: Lolly Hinds is a 59 y.o. female who presents for Follow-up. Patient comes for a follow-up visit and she is doing well. Since her last appointment she had arthroscopic surgery of the left shoulder for treatment of left shoulder impingement syndrome. She is feeling much better. The left shoulder pain has improved significantly. The range of motion of the left shoulder is better. She has been doing exercises at home and she is recommended to continue. She continues to follow with [facility] endocrinology regularly. She is using her medications as prescribed. She denies episodes of hypoglycemia at home. Her blood sugar has been well-controlled. On review of the health maintenance schedule she is due to repeat her lipid panel. Review of Systems Constitutional: Negative for chills and fever. HENT: Negative for sore throat. Respiratory: Negative for cough, shortness of breath and wheezing. Cardiovascular: Negative for chest pain, palpitations and leg swelling. Gastrointestinal: Negative for abdominal pain. Musculoskeletal: See HPI Visit Vitals BP 134/73 (BP Location: Left arm, Patient Position: Sitting, BP Cuff Size: Adult) Pulse 90 Temp 97.3 ??F (36.3 ??C) (Temporal) Resp 14 Ht 5' 2 (1.575 m) Wt 140 lb (63.5 kg) SpO2 98% BMI 25.61 kg/m?? OB Status Postmenopausal Smoking Status Never BSA 1.67 m?? Objective Physical Exam Constitutional: Appearance: Normal appearance. Cardiovascular: Rate and Rhythm: Normal rate and regular rhythm. Heart sounds: No murmur heard. No gallop. Pulmonary: Effort: Pulmonary effort is normal. No respiratory distress. Breath sounds: Normal breath sounds. No wheezing. Musculoskeletal: Right lower leg: No edema. Left lower leg: No edema. Neurological: Mental Status: She is alert. Assessment/Plan Diagnoses and all orders for this visit: Type 2 diabetes mellitus with other specified complication, with long-term current use of insulin (CMS/HCC) Comments: Well-controlled. Continue current medications. On review of her medication record she had both atorvastatin and pravastatin. I confirmed with the pharmacy [facility] program that she is only on pravastatin. I updated her medication list. She is recommended to check fasting blood work listed below. Orders: - Comprehensive Metabolic Panel; Future - Lipid Panel, Standard; Future Impingement syndrome of left shoulder Comments: Much better after arthroscopic surgery. She is encouraged to continue doing exercises at home for this. documented in this encounter Plan of Treatment Scheduled Orders Name Type Priority Associated Diagnoses Orde r Schedule Comprehensive Metabolic Panel Lab Routine Type 2 diabetes mellitus with other specified complication, with long-term current use of insulin (CMS/HCC) Expected: 03/05/2025 (Approximate), Expires: 03/05/2026 Lipid Panel, Standard Lab Routine Type 2 diabetes mellitus with other specified complication, with long-term current use of insulin (CMS/HCC) Expected: 03/05/2025 (Approximate), Expires: 03/05/2026 documented as of this encounter Visit Diagnoses Diagnosis Type 2 diabetes mellitus with other specified complication, with long-term current use of insulin (CMS/HCC)- Primary Impingement syndrome of left shoulder documented in this encounter Additional Health Concerns Assessment Noted Time PHQ-9 Depression Total Score: 9 03/05/20 25 2:25 PM EDT documented as of this encounter Care Teams Maintenance And Repair Worker Relationship Specialty Start Date End Date Name, MD Roel [address] [place] [id number] PCP - General Family Medicine 10/04/17 documented as of this encounter
--- OUTSIDE RECORDS SUMMARY | 2025-03-07 11:03 | XMS_ITS | Encounter Summary ---
Author Organization [employer] Address [address] [facility] [address] [place] [address] Care Team Providers Care Project Management Instructor Name Role Phone Name, Roel ORTEGA Primary Care Provider [phone] Encounter Details Date Type Department Care Team ([facility] st Contact Info) Description 07/06/2023 Telephone [facility] [address] [place], [place] [id number] Name, MD Roel [address] [place] [address] Social History Tobacco Use Types Packs/Day Years [...] letter to schedule f/u appointment with coleen. Pusher Runner does not see any documentation on letter or recall. Please contact pt at [phone] (Tajik) documented in this encounter Plan of Treatment Not on file documented as of this encounter Visit Diagnoses Not on filedocumented in this encounter Additional Health Concerns Assessment Noted Time PHQ-9 Depression Total Score: 0 11/03/19 8:54 AM EST documented as of this encounter Care Teams Project Management Instructor Relationship Specialty Start Date End Date Name, MD Roel [address] [place] [id number] PCP - General Family Medicine 10/04/17 documented as of this encounter
--- OUTSIDE RECORDS SUMMARY | 2025-03-07 11:03 | XMS_ITS | Clinical Summary ---
Demographics Address [address] [place] [address] [address] [place] [address] Work Phone Home Phone Mobile Phone Preferred Language es Marital Status Single Mandaeism Affiliation Unknown Race Other Race Ethnic Group Unknown Author Organization [employer] Address [address] [place] [address] 7t [place] [address] Care Team Providers Care Brownfield Redevelopment Specialist Name Role Phone Name, Roel ORTEGA Primary Care Provider [phone] Allergies Active Allergy Reactions Criticality Noted Date Comments Metformin 08/11/2021 Other reaction(s): GI Problems Other reaction(s): gi uposet Medications Calcium Polycarbophil (fiber) 625 MG tablet Take 2 tablets by mouth at bed time. Active cholecalciferol (Vitamin D-3) 50 MCG (1999 UT) capsule Take 1 capsule by mouth Once per day. Active Diclofenac Sodium 1 % gel Apply topically every 12 (twelve) hours. Active empagliflozin (Jardiance) 25 MG Take 1 tablet by mouth at bed time. Active glucose blood (FREESTYLE LITE) test strip 1 strip every 8 (eight) hours. Active hydrocortisone 1 % cream Active hydroxychloroqui ne (Plaquenil) 200 MG tablet Take 1 tablet by mouth at bed time. Active insulin lispro (HumaLOG) 100 UNIT/ML injection Active omeprazole (PriLOSEC) [address] capsule Take 1 capsule by mouth at bed time. Active polyvinyl alcohol (Liquifilm Tears) 1.4 % ophthalmic solution Active sertraline (Zoloft) 50 MG tablet Take 1 tablet by mouth at bed time. Active Skin Protectants, Misc. (eucerin) cream Active terbinafine (LamISIL) 1 % cream Apply topically every 12 (twelve) hours. Active traZODone (Desyrel) 100 MG tablet Take 1 tablet by mouth at bed time. Active pioglitazone (Actos) 30 MG tablet Take 30 mg by mouth in the morning. Active sertraline (Zoloft) 100 MG tablet Take 100 mg by mouth in the morning. Active senna (Senokot) 8.6 MG tablet Active pravastatin (Pravachol) 20 MG tablet Take 20 mg by mouth at bedtime. Active BD Pen Needle Sandy U/F 32G X 4 MM [facility] Active gabapentin (Neurontin) 300 MG capsule Take 300 mg by mouth at bedtime. Active dicyclomine (Bentyl) 20 MG tablet Take 20 mg by mouth before breakfast, before lunch, and before evening meal. 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 40 tablet Active albuterol (2.5 MG/3ML) 0.083% nebulizer solutionIndicati ons:Mild persistent asthma without complication Take 3 mL (2.5 mg) by nebulization every 6 (six) hours if needed for wheezing or shortness of breath. 75 mL 1 2024 Active enalapril (Vasotec) 20 MG tabletIndication s:Essential hypertension TAKE 1 TABLET BY MOUTH AT BEDTIME 90 tablet 1 024 Active levothyroxine (Synthroid, Levoxyl) 88 MCG [...] MOUTH EVERY MORNING WITH FOOD 45 tablet 025 Active Alcohol Swabs (Alcohol Prep) 70 % pads USE THREE TIMES DAILY 100 each Active albuterol (Ventolin HFA) 108 (90 Base) MCG/ACT inhaler Inhale 2 puffs every 6 (six) hours if needed for wheezing. 18 g 025 Active fluticasone furoate (Arnuity Ellipta) 100 [...] clean tip and replace cap. 48 g 025 Active Trulicity 3 MG/0.5ML solution auto-injector 025 Active Toujeo Max SoloStar 300 UNIT/ML injection Active Myrbetriq 50 MG 24 hr tablet Take 50 mg by mouth in the morning. 025 Active amLODIPine (Norvasc) 5 MG tabletIndication s:Essential hypertension TAKE 1 TABLET BY MOUTH EVERY MORNING 90 tablet 1 025 Active hydroCHLOROthiaz ann 12.5 MG tabletIndication s:Essential [...] EVERY MORNING 90 tablet 3 025 Active atorvastatin (Lipitor) 10 MG tablet Take 1 tablet by mouth at bed time. 020 2024 Discontinued(D uplicate order (will not trigger notification to Pharmacy)) Aspirin Adult Low Strength 81 MG EC [...] <100 04/11/2024 IBS (irritable bowel syndrome) 04/11/2024 director long term care (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 of insulin 04/11/2024 Mass [...] diabetic retinopathy 01/17/2019 Overview (02/09/2024): Follows at [facility] Diabetic 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 11/17/2017 Hypertension 10/04/2017 Diabetes mellitus 10/04/2017 Resolved Problems Problem Noted Date Diagnosed Date Resolved Date Diabetic neuropathy 09/22/2023 09/22/2023 12/24/19 Extrinsic asthma without complication 02/19/2023 12/24/2023 Thyroid nodule 09/15/2022 02/19/2023 Encounters Date Type Department Care Team Description 03/07/2025 Orders Only GENERIC EXTERNAL DATA DEPARTMENT Provider, Generic External Data 03/05/2025 1:45 PM EDT Office Visit [facility] MEDICINE [address] [place] [phone] Name, MD Roel Type 2 diabetes mellitus with other specified complication, with long-term current use of insulin ([facility]) (Primary Dx); Impingement syndrome of left shoulder 03/05/2025 Travel 03/02/[address] [facility] MEDICINE [address] [place] [address] Cathy Caraballo [place] CHART PREP 02/13/[address] [facility] MEDICINE [address] [place] [address] Roel Rock MD 01/26/2025 Orders Only GENERIC EXTERNAL DATA DEPARTMENT Provider, Generic External Data 01/05/2025 Orders Only GENERIC EXTERNAL DATA DEPARTMENT Provider, Generic External Data 12/29/2024 Population Health Risk Score [facility] (C3) Department [address] [phone] Provider, Population Health Generic 12/26/[address] [facility] MEDICINE [address] [place] [address] Roel Rock MD 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) 12/20/[address] [facility] MEDICINE [address] [place] [address] Hellen Porter ANP Essential hypertension 12/20/[address] [facility] MEDICINE [address] [place] [address] Roel Rock MD Essential hypertension 12/14/2024 3:30 PM EST Office Visit 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 MEDICINE [address] [place] [address] Roel Rock MD January recall from Last [...] the past 12 months, has t he [employer], gas, oil or water [employer] threatened to shut off services in your [...] Mass Index 25.61 03/05/2025 1:54 PM EDT Plan of Treatment Health Maintenance Due Date Last Done Comments CT Colonography 1965 FIT DNA/Cologuard 1965 FIT 1965 FOBT 1965 HIV Screening 1965 Sigmoidoscopy 1965 Colonoscopy 11/14/2023 11/14/2018 Colorectal Cancer Screening 11/14/2023 Diabetes: Urine Protein Screening 02/27/2024 02/26/2023, 01/01/2022, 11/27/2021, Additional history exists Lipid Panel 02/27/2024 02/26/2023, 1003/2022, 11/27/2021, Additional history exists RSV Patients and Patients Aged 60 years or older (1 - Risk 60-74 years 1-dose series) 2024 Dental Prophylaxis 09/30/2024 03/30/2024, 02/04/2023 Dental Oral Exam 11/30/2024 05/29/2024, 07/17/2022 Diabetes: Foot Exam 12/30/2024 12/31/2023, 12/31/2023, 12/31/2023, Additional history exists Dental X-Ray: [facility]ings 03/31/2025 03/30/2024, 12/16 SDOH Screening 04/03/2025 04/03/2024 Alcohol/Substance Use Screening 04/17/2025 04/17/2024 Diabetes: Hemoglobin A1C 05/30/2025 025, 07/07/2024, 04/03/2024, Additional history exists Eye Exam 12/14/2025 12/14/2024, 11/19, 12/14/2024, Additional history exists Depression Screening 03/05/2026 03/05/2025, 03/05/20 25 Disability Screening 03/05/2026 03/05/2025 Tobacco Screening 03/05/2026 03/05/2025 Mammogram 03/23/2026 03/23/2024, 02/17, 03/16/2023, Additional history [...] Associated Diagnosis Comments GLUCOSE, WHOLE BLOOD Routine 03/07/2025 9:54 AM EDT GLUCOSE, WHOLE BLOOD Routine 01/26/2025 7:48 AM [...] Maintenance Results * (ABNORMAL) Glucose, Whole Blood (03/07/2025 9:54 AM EDT) Glucose, Whole Blood 150(H) 60 - 115 mg/dL [facility] Comment:METER #: [id number] 5Testing performed in the Endocrinology Department [address] , [address], [facility]. 03/07/2025 9:54 AM EDT 03/07/2025 9:58 AM EDT us Generic External Data Provider LAB BLOOD ORDERAB LES Final Result [facility] [address] [place] [phone] * (ABNORMAL) Glucose, Whole Blood (01/26/2025 7:48 AM EDT) Glucose, Whole Blood 131(H) 60 - 115 mg/dL [facility] Comment:METER #: [id number] 01/26/2025 7:48 AM EDT 01/26/2025 7:51 AM EDT us Generic External Data Provider LAB BLOOD ORDERAB LES Final Result [facility] [address] [place] [address] [phone] * CBC (01/05/2025 11:40 AM EDT) White Blood Count 6.3 4.8 - 10.8 X10*3/uL [facility] Red Blood Count 4.83 4.20 - 5.50 X10*6/uL [facility] Hemoglobin 13.6 12.0 - 16.0 g/dl [facility] Hematocrit 41.1 37.0 - 47.0 % [facility] Mean Corpuscular Volume 85.1 80.0 - 98.0 fL [facility] Mean Corpuscular Hemoglobin 28.2 27.0 - 33.0 pg [facility] Mean Corpuscular HGB Conc 33.1 31.0 - 35.0 g/dl [facility] Red Cell Distribution Width 12.7 11.0 - 16.0 % [facility] Platelet Count 253 160 - 400 X10*3/uL [facility] Mean Platelet Volume 9.8 9.4 - 12.3 fL [facility] NRBC Pct Auto 0.0 0.0 - 0.2 /100WBC [facility] NRBC Abs Auto 0.000 0.0 - 0.012 X10*3/uL [facility] 01/05/2025 11:4 0 AM EDT 01/05/2025 11:40 AM EDT us Generic External Data Provider LAB BLOOD ORDERAB LES Final Result [facility] [address] [place] [phone] * (ABNORMAL) Basic Metabolic Panel (01/05/2025 11:40 AM EDT) Pathologist [facility] Sodium 141 135 - 145 mmol/L [facility] Potassium 4.1 3.3 - 5.1 mmol/L [facility] Chloride 105 96 - 108 mmol/L [facility] Carbon Dioxide 29 22 - 29 mmol/L [facility] Anion Gap 11(L) 12 - 20 [facility] Urea Nitrogen (BUN) 17(H) 9 - 16 mg/dL [facility] Creatinine, Serum 0.72 0.5 - 1.4 mg/dL [facility] Creatinine Clr Calc Pharmacy 71.1 [facility] Comment:Provided height and weight: 154.94 cm,63.957 kg.eGFR (calculated from the MDRD study equation) and eCrCl(calculated from the Cockcroft-Gault equation) are based ondifferent parameters and may not yield comparable results.If eCrCl result is absurd, please check patient'sheight/weight. Estimated Glomerular Filt Rate >60 [facility] Comment:Chronic Kidney Disea se: Estimated GFR < 60 mL/min/1.67t8Fsysrm Kidney Disease: Estimated GFR < 15 mL/min/1.73m2 Glucose 123(H) 60 - 115 mg/dL [facility] Calcium 9.5 8.4 - 10.2 mg/dL [facility] 01/05/2025 11:4 0 AM EDT 01/05/2025 11:40 AM EDT us Generic External Data Provider LAB BLOOD ORDERAB LES Final Result [facility] [address] [place] [phone] * OCT, Retina - OU - [...] Media Lot # [id number] Lot# Expiration Date Blood 11/30/2024 10:5 9 AM EST us Roel Rock MD POINT OF CARE TEST ENTER/EDIT OR DERABLES Final Result * Hepatitis C Antibody with Reflex to HCV, RNA, Quantitative, Real-Time PCR (04/17/2024 11:32 AM EDT) Hepatitis C Antibody Nonreactive Nonreactive [facility] Comment:Antibodies to HCV no t detected; does not exclude early acuteHCV infection. Blood Venous blood specimen / Unknown 04/17/2024 11:32 AM EDT 04/17/2024 1:13 PM EDT us Roel Rock MD LAB BLOOD ORDERABLES Final Resul t [facility] [address] [place] [phone] * BI Mammogram Screening Tomosynthesis Bilateral (03/23/2024 2:50 PM EDT) Anatomical Region Laterality Modality Breast Bilateral Mammography 03/23/2024 2:50 PM EDT Narrative 04/18/2024 8:48 AM EDT ? [facility] ? [address] ?[place] [address] ? Mammography Report ? Signed ? Patient: Valero Guzman,Gilda ?MR#: M ?? [id number] ? : 1965 ?Acct:[id number] ? Age/Sex: 59 / F ?ADM Date: 03/23/24 ? Loc: HO.MAMMO ? Attending Dr: Roel Rock MD ? Ordering Physician: Roel Rock MD ?Results: 1Negative ? Date of Service: 03/23/24 ?Follow Up: 1 Year From Orig ?? inal Mammogram ? Procedure(s): MM tomosynthesis screening BI ?? Accession Number(s): [id number] ? cc: Pranav,Roel ORTEGA ? EXAMINATION: ?? MM SCREENING DIGITAL BREAST TOMOSYNTHESIS, BILATERAL ? CLINICAL INFORMATION: ? Screening. Asymptomatic. ? COMPARISON: ?? Mammography: This study is compared with prior exams dating back to ?? 2020. ? TECHNIQUE: ?? Digital breast tomosynthesis is [...] 0844 ? DD/ 1450 ? TD/TT: ? Automation Specialist: ? Procedure Note Donmarkter, Image - 04/18/2024 [facility] [address] Feng, [place] [address] Mammography Report Signed Patient: Lolly Mcginnis MMR#: M [id number] : 1965Acct:[id number] Age/Sex: 59 / FADM Date: 03/23/24 Loc: HO.MAMMO Attending Dr: Roel Rock MD Ordering Physician: Roel Rock MDResults: 1Negative Date of Service: 03/23/24Follow Up: 1 Year From Orig inal Mammogram Procedure(s): MM tomosynthesis screening BI Accession Number(s): [id number] cc: Roel Rock MD EXAMINATION: MM SCREENING [...] in OV> 04/18/24 0844 DD/ 1450 TD/TT: Automation Specialist: Roel Rock MD IMG BI PROCEDURES Edited Result - Final * Albumin, Random Urine W/Creatinine (02/26/2023 8:39 AM EDT) Creatinine, Random Urine 142 20 - 275 mg/dL [facility] [place] [facility] Albumin, Urine 1.9 See Note: mg/dL [facility] Comment: Reference Range: Reference Range Not established Albumin/Creatinin e Ratio, Random Urine 13 <30 mcg/mg creat [facility] [place] [facility] Comment: The ADA defines abnormalities in albumin [...] 02/26/2023 10:35 PM EDT FASTING:YES FASTING: YES Roel Rock MD LAB URINE ORDERABLES Final Resul t [facility] [address] [place] [address] [facility] [place] [facility] [address] [place] [address] * Lipid Panel, Standard (02/26/2023 8:39 AM EDT) Cholesterol, Total 181 <200 mg/dL [facility] [place] [facility] HDL Cholesterol 74 > OR = 50 mg/dL [facility] Triglycerides 62 <150 mg/dL [facility] LDL Cholesterol 93 mg/dL (calc) [facility] Comment: Reference range: <100 Desirable range <100 mg/dL for primary prevention; ?? <70 mg/dL for patients with CHD or diabetic patients with > or = 2 CHD risk factors. LDL-C is now calculated using the Bhavna calculation, which is a validated novel method providing better accuracy than the Friedewald equation in the estimation of LDL-C. Edmar COUCH et al. JERSON. 2013;310(19): 4776-9578 (http://education.[employer]/faq/LDN334) Chol/HDLC Ratio 2.4 <5.0 (calc) [facility] Non-HDL Cholesterol 107 <130 mg/dL (calc) [facility] Comment: For patients with diabetes plus 1 major ASCVD risk factor, treating to a non-HDL-C goal of <100 mg/dL (LDL-C of <70 mg/dL) is considered a therapeutic option. Blood Venous blood specimen / Unknown 02/26/2023 8:39 AM EDT 02/26/2023 8:40 AM EDT Narrative [facility] - 02/26/2023 10:35 PM EDT FASTING:YES FASTING: YES us Roel Rock MD LAB BLOOD ORDERABLES Final Resul t [facility] [address] [place] [address] [facility] [address] [place] [address] * Image-Guided Pap with Age-Based Screening Protocols (01/13/2023 11:48 AM EDT) Comment [facility] Comment: This order for age-based cervical cancer and STI screening follows ACOG guidelines(PB 168, 140, ZPJ936). See individual assays for performing site location. Clinical Information: None given [facility] LMP: NONE GIVEN [facility] Prev. PAP: NONE GIVEN [employer] Prev. BX: NONE GIVEN [facility] [place] [facility] SOURCE: None given [facility] [place] [employer] Statement Of Adequacy: SATISFACTORY FOR EVALUATION [facility] [place] [facility] Interpretation/Re sult: [facility] [place] [facility] Comment: Negative for intraepithelial lesion or malignancy. Atrophic pattern; predominantly parabasal cells COMMENT: This Pap test has been evaluated with computer assisted technology. [facility] [place] [facility] Assistant Drafter: [facility] [place] [facility] Comment: SXA, CT(ASCP) CT screening location: [address] ??[address] (Always Message) [facility] Comment: EXPLANATORY NOTE: The Pap is a [...] HPV nRNA E6/E7 Not Detected Not Detected [facility] Comment: Methodology: [employer]writer [employer]-Mediated Amplification This assay detects E6/E7 viral messenger RNA (mRNA) from 14 high-risk HPV types (16,18,31,33,35,39,45,51,52,56,58,59,66,68). Cervical sources are required for HPV testing. If a vaginal source from a patient who has had a total hysterectomy with removal of cervix was submitted, please contact the testing laboratory for alternative testing options. For additional information, please refer to http://education.[employer]/faq/GRX656z4 (This link if provided for information/ educational purposes only.) Cytology specimen container (physical object) 01/13/2023 11:48 AM EDT 01/14/2023 2:03 AM EDT Erica LOFTON LAB BLOOD ORDERABLES Janis l Result [facility] [address] [place] [address] [facility] [address] [place] [address] * Hm Colonoscopy (11/14/2018 4:17 PM EST) Colonoscopy Normal Normal Narrative Ami Giraldo - 11/14/2018 4:17 PM EST Recommended 5 year follow up us Historical Provider HEALTH MAINTENANCE Final Result from Last 3 Months or Most Recently Relevant to Health Maintenance Insurance * Guarantor: Lolly Mcginnis Account Type Relation to Patient Date of Phone Billing Address Personal/Family Self 1965 [address] [place] [address] [facility] C3 DENTAL-[facility] MEDICAID STAND ADULT * Guarantor: Lolly Mcginnis Account Type Relation to Patient Date of Phone Billing Address Personal/Family Self [address] [place] [address] Care Teams Brownfield Redevelopment Specialist Relationship Specialty Start Date End Date Name, MD Roel [address] [place] [phone] PCP - General Family Medicine 10/04/17
--- OUTSIDE RECORDS SUMMARY | 2025-03-07 11:03 | XMS_ITS | Encounter Summary ---
Author Organization [employer] Address [address] [facility] 7t [place] [address] Care Team Providers Care Acid Patroller Name Role Phone Name, Roel ORTEGA Primary Care Provider [phone] Reason for Visit * Reason Onset Date Comments CHART PREP 03/02/2025 Encounter Details Date Type Department Care Team ([facility] st Contact Info) Description 03/02/2025 Telephone [facility] MEDICINE [address] [place] [address] Cathy Caraballo [place] CHART PREP Social History Tobacco Use Types Packs/Day Years [...] encounter Miscellaneous Notes * Telephone Encounter - Cathy Caraballo [place] - 03/02/2025 2:33 PM EDT Chart Prep Labs: done Images: done- OCT MACULA INTERPRETATION Referrals: complete-Rheumatology 08/02/24 3:30 PM [facility] 09/07/24 1:15 PM Consultation - Orthopaedic [facility] 08/08/24 11:00 AM [facility] Freedom Huggins MD Vaccines due: RSV Screenings: colonoscopy, foot exam, and LIPID PANEL Overdue care gaps: PHQ-9 and Disability screen documented in this encounter Plan of Treatment Not on file documented as of this encounter Visit Diagnoses Not on filedocumented in this encounter Additional Health Concerns Assessment Noted Time PHQ-9 Depression Total Score: 0 12/31/19 10:54 AM EDT documented as of this encounter Care Teams Acid Patroller Relationship Specialty Start Date End Date Name, MD Roel [address] [place] [phone] PCP - General Family Medicine 10/04/17 documented as of this encounter
--- OUTSIDE RECORDS SUMMARY | 2025-03-07 11:03 | XMS_ITS | Encounter Summary ---
Author Organization [employer] Address [address] [facility] 7t [place] [address] Care Team Providers Care Drawbridge Operator Name Role Phone Name, Roel ORTEGA Primary Care Provider [phone] Encounter Details Date Type Department Care Team (Late st Contact Info) Description 03/19/2023 Abstract [facility] MEDICINE [address] [place], [place] [phone] Name, MD Roel [address] [place] [address] Social History Tobacco Use Types Packs/Day Years [...] as of this encounter Plan of Treatment Not on file documented as of this encounter Visit Diagnoses Not on filedocumented in this encounter Additional Health Concerns Assessment Noted Time PHQ-9 Depression Total Score: 0 11/03/19 23 8:54 AM EST documented as of this encounter Care Teams Drawbridge Operator Relationship Specialty Start Date End Date Name, MD Roel [address] [place] [address] PCP - General Family Medicine 10/04/17 documented as of this encounter
--- OUTSIDE RECORDS SUMMARY | 2025-03-07 11:03 | XMS_ITS | Encounter Summary ---
Author Organization [facility] Address [address] [facility] [address] [place] [address] Care Team Providers Care Real Estate Officer Name Role Phone Name, Roel ORTEGA Primary Care Provider [phone] Encounter Details Date Type Department Care Team ([facility] st Contact Info) Description 03/18/2023 Abstract [facility] MEDICINE [address] [place], [place] [phone] Name, MD Roel [address] [place] [address] Social History Tobacco Use Types Packs/Day Years [...] on file documented as of this encounter Procedures Procedure Name Priority Date/Time Associated Diagnosis Comments HM COLONOSCOPY Routine 11/14/2018 4:17 PM EST documented [...] documented as of this encounter Care Teams Real Estate Officer Relationship Specialty Start Date End Date Name, MD Roel [address] [place] [address] PCP - General Family Medicine 10/04/17 documented as of this encounter
--- OUTSIDE RECORDS SUMMARY | 2025-03-07 11:03 | XMS_ITS | Encounter Summary ---
Author Organization [employer] Address [address] [facility] [address] [place] [address] Care Team Providers Care Wood Treating Inspector Name Role Phone Name, Roel ORTEGA Primary Care Provider [phone] Reason for Visit * Reason Onset Date Comments Appointment Request 12/09/2023 Encounter Details Date Type Department Care Team ([facility] st Contact Info) Description 12/09/2023 Telephone [facility] MEDICINE [address] [place], [place] [phone] Name, MD Roel [address] [place] [address] Appointment Request Social History Tobacco Use Types [...] documented as of this encounter Care Teams Wood Treating Inspector Relationship Specialty Start Date End Date Name, MD Roel [address] [place] [address] PCP - General Family Medicine 10/04/17 documented as of this encounter
--- OUTSIDE RECORDS SUMMARY | 2025-03-07 11:03 | XMS_ITS | Encounter Summary ---
Demographics Address [address] [place] [address] [address] [place] [address] Work Phone Home Phone Mobile Phone Preferred Language es Marital Status Single Anabaptist Affiliation Unknown Race Other Race Ethnic Group Unknown Author Organization [employer] Address [address] [facility] 7t [place] [address] Care Team Providers Care Customer Service Associate Name Role Phone Name, Roel ORTEGA Primary Care Provider [phone] Encounter Details Date Type Department Care Team (Late st Contact Info) Description 03/07/2025 Orders Only GENERIC EXTERNAL DATA [...] WHOLE BLOOD Routine 03/07/2025 9:54 AM EDT documented in this encounter Results * (ABNORMAL) Glucose, Whole Blood (03/07/2025 9:54 AM EDT) Glucose, Whole Blood 150(H) 60 - 115 mg/dL [facility] Comment:METER #: [id number] 5Testing performed in the Endocrinology Department [address] , [address], [facility]. 03/07/2025 9:54 AM EDT 03/07/2025 9:58 AM EDT us Generic External Data Provider LAB BLOOD ORDERAB LES Final Result [facility] [address] [place] [phone] documented in this encounter Visit Diagnoses Not on filedocumented in this encounter Additional Health Concerns Assessment Noted Time PHQ-9 Depression Total Score: 9 03/05/20 25 2:25 PM EDT documented as of this encounter Care Teams Customer Service Associate Relationship Specialty Start Date End Date Name, MD Roel [address] [place] [address] PCP - General Family Medicine 10/04/17 documented as of this encounter
--- OUTSIDE RECORDS SUMMARY | 2025-03-07 11:03 | XMS_ITS | Encounter Summary ---
Author Organization [employer] [facility] Address [address] [facility] 7t [place] [address] Care Team Providers Care Grain Elevator Motor Starter Name Role Phone Name, Roel ORTEGA Primary Care Provider [phone] Encounter Details Date Type Department Care Team (Latest Contact Info) Description 12/20/2020 Abstract [facility] Dental, Provider, DDS Social History Tobacco [...] on filedocumented in this encounter Care Teams Grain Elevator Motor Starter Relationship Specialty Start Date End Date Name, MD Roel [address] [place] [address] PCP - General Family Medicine 10/04/17 documented as of this encounter
--- OUTSIDE RECORDS SUMMARY | 2025-03-07 11:03 | XMS_ITS | Encounter Summary ---
Author Organization [employer] Address [address] [facility] 7t [place] [address] Care Team Providers Care Copy Preparer Name Role Phone NameRoel MD Primary Care Provider [phone] Reason for Visit * Reason Onset Date Comments Results 04/19/2024 Encounter Details Date Type Department Care Team ([facility] st Contact Info) Description 04/19/2024 Telephone [facility] MEDICINE [address] [place], [place] [phone] Name, MD Roel [address] [place] [address] Results Social History Tobacco Use Types Packs/Day [...] as of this encounter Care Teams Copy Preparer Relationship Specialty Start Date End Date Name, MD Roel [address] [place] [address] PCP - General Family Medicine 10/04/17 documented as of this encounter
--- OUTSIDE RECORDS SUMMARY | 2025-03-07 11:03 | XMS_ITS | Encounter Summary ---
Author Organization [employer] [facility] Address [address] [facility] 7t [place] [address] Care Team Providers Care Bread Baker Name Role Phone Name, Roel ORTEGA Primary Care Provider [phone] Encounter Details Date Type Department Care Team (Late st Contact Info) Description 12/18/2022 Abstract [facility]ULT D[facility] [address] [place] [address] BrennanNajma Borrero, DDS [address] [place], [place] [phone] Social History Tobacco Use Types Packs/Day Years [...] documented as of this encounter Care Teams Bread Baker Relationship Specialty Start Date End Date Name, MD Roel [address] [place] [address] PCP - General Family Medicine 10/04/17 documented as of this encounter
--- OUTSIDE RECORDS SUMMARY | 2025-03-07 11:03 | XMS_ITS | Encounter Summary ---
Author Organization [employer] Address [address] [facility] 7t [place] [address] Care Team Providers Care Substance Abuse Clinician Name Role Phone NameRoel MD Primary Care Provider [phone] Reason for Visit * Reason Comments Med Refill Encounter Details Date Type Department Care Team ([facility] st Contact Info) Description 06/05/2024 Refill [facility] MEDICINE [address] [place], [place] [phone] Name, MD Roel [address] [place] [address] Essential hypertension Social History Tobacco Use Types [...] documented as of this encounter Care Teams Substance Abuse Clinician Relationship Specialty Start Date End Date Name, MD Roel [address] [place] [address] PCP - General Family Medicine 10/04/17 documented as of this encounter
--- OUTSIDE RECORDS SUMMARY | 2025-03-07 11:03 | XMS_ITS | Encounter Summary ---
Demographics Address [address] [place] [address] [address] [place] [address] Work Phone Home Phone Mobile Phone Preferred Language es Marital Status Single Rastafari Affiliation Unknown Race Other Race Ethnic Group Unknown Author Organization [employer] Address [address] [facility] 7t [place] [address] Care Team Providers Care Senior Administrative Assistant Name Role Phone Name, Roel ORTEGA Primary Care Provider [phone] Encounter Details Date Type Department Care Team (Latest Contact Info) Description 03/05/2025 Travel Social History Tobacco Use Types Packs/Day [...] AM EDT documented as of this encounter Functional Status * Over the [...] Assessment Author 9 03/05/2025 2:25 PM EDT Cathy Caraballo [place] * How difficult have these problems made it for you to do your work, take care of things at home, or get along with other people? Answer Date of Assessment Author Not difficult at all 03/05/2025 2:25 PM EDT Cathy Bill [place] documented as of this encounter Plan of Treatment Not on file documented as of this encounter Visit Diagnoses Not on filedocumented in this encounter Additional Health Concerns Assessment Noted Time PHQ-9 Depression Total Score: 9 03/05/20 25 2:25 PM EDT documented as of this encounter Care Teams Senior Administrative Assistant Relationship Specialty Start Date End Date Name, MD Roel [address] [place] [address] PCP - General Family Medicine 10/04/17 documented as of this encounter
--- OUTSIDE RECORDS SUMMARY | 2025-03-07 11:03 | XMS_ITS | Encounter Summary ---
Author Organization [employer] [facility] Address [address] [facility] 7t [place] [address] Care Team Providers Care Bail Bonding Agent Name Role Phone Name, Roel ORTEGA Primary Care Provider [phone] Encounter Details Date Type Department Care Team (Late st Contact Info) Description 09/15/2022 Abstract [facility] ADULT DENTAL [address] [place], [place] [phone] Dental, Provider, DDS Social History Tobacco Use [...] on filedocumented in this encounter Care Teams Bail Bonding Agent Relationship Specialty Start Date End Date Name, MD Roel [address] [place] [address] PCP - General Family Medicine 10/04/17 documented as of this encounter
== END 2025-03-07 10:12 | disposition home or self-care (01) ==
LOC: HO.ENCR 09:45
PROVIDERS: PCP Internal Medicine Geriatric Medicine; Visit Provider Internal Medicine
DX: E11.319 Type 2 diabetes mellitus with unspecified diabetic retinopathy without macular edema (principal); E11.42 Type 2 diabetes mellitus with diabetic 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; Z79.4 Long term (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 of insulin; C73 Malignant neoplasm of thyroid gland; E11.40 Type 2 diabetes mellitus with diabetic neuropathy, unspecified

== ENCOUNTER → 2025-03-07 09:44 | Outpatient (BNVA) | payer MEDICAID, SELFPAY | PROVIDERS: PCP Internal Medicine Geriatric Medicine; Visit Provider Internal Medicine | DX: E11.319 Type 2 diabetes mellitus with unspecified diabetic retinopathy without macular edema (principal); E11.42 Type 2 diabetes mellitus with diabetic 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; C73 Malignant neoplasm of thyroid gland; Z79.4 Long term (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 of insulin | CPT/HCPCS: 82947; 83036; 99212 ==

== ENCOUNTER 2025-03-22 12:33 | Outpatient (REF) | payer MEDICAID, SELFPAY ==
[2025-03-22 13:27] LABS: MANUAL DIFF FLAG NO
[2025-03-22 14:27] LABS: Basophils Absolute Auto 0.1 X10*3/uL (0.0-0.2); Basophils Percent Auto 1.3 % (0-2); Eosinophils Absolute Auto 0.4 X10*3/uL (0.0-0.4); Eosinophils Percent Auto 7.9 % (0-4); Hematocrit 41.9 % (37.0-47.0); Hemoglobin 13.5 g/dl (12.0-16.0); Imm Gran Abs Auto 0.02 X10*3/uL (0.00-0.03); Imm Gran Pct Auto 0.4 % (0.0-0.4); Lymphocytes Absolute Auto 1.4 X10*3/uL (1.2-4.9); Lymphocytes Percent Auto 25.2 % (20-40); Mean Corpuscular HGB Conc 32.2 g/dl (31.0-35.0); Mean Corpuscular Hemoglobin 27.7 pg (27.0-33.0); Mean Platelet Volume 9.8 fL (9.4-12.3); Monocytes Absolute Auto 0.4 X10*3/uL (0.1-1.2); Monocytes Percent Auto 7.5 % (2-11); Neutrophils Absolute Auto 3.1 x10*3/uL (2.0-8.3); Neutrophils Percent Auto 57.7 % (45-73); Platelet Count 241 X10*3/uL (160-400); Red Blood Count 4.87 X10*6/uL (4.20-5.50); Red Cell Distribution Width 12.2 % (11.0-16.0); White Blood Count 5.4 X10*3/uL (4.8-10.8)
[2025-03-22 14:48] LABS: Estimated Average Glucose 143 mg/dL; Hemoglobin A1c % 6.6 % (<6.0); Total Hemoglobin (HGBA1C) 3546.5496 umol/L
[2025-03-22 15:07] LABS: Alanine Aminotransferase 29 U/L (0-31); Albumin Level 4.5 g/dL (3.5-5.0); Alkaline Phosphatase 93 U/L (39-117); Amylase 84 U/L (28-100); Anion Gap 10 (12-20); Aspartate Amino Transferase 32 U/L (5-31); Bilirubin Total 0.3 mg/dL (0.0-1.0); Blood Urea Nitrogen 15 mg/dL (9-16); Calcium 9.9 mg/dL (8.4-10.2); Carbon Dioxide 32 mmol/L (22-29); Chloride 105 mmol/L (96-108); Estimated Glomerular Filt Rate > 60; Glucose Random 198 mg/dL (60-115); Lipase 36 U/L (8-78); Potassium 4.9 mmol/L (3.3-5.1); Sodium 142 mmol/L (135-145); Total Protein 7.7 g/dL (6.5-8.0)
== END 2025-03-22 12:34 | disposition home or self-care (01) ==
LOC: HO.LAB 12:33
PROVIDERS: PCP Internal Medicine Geriatric Medicine; Visit Provider Nurse Practitioner
DX: Z79.4 Long term (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 of insulin (principal); E11.65 Type 2 diabetes mellitus with hyperglycemia; R10.13 Epigastric pain; R11.0 Nausea
CPT/HCPCS: 36415; 80053; 82150; 83036; 83690; 85025; 99212

== ENCOUNTER 2025-03-22 12:33 | Outpatient (AMB) | payer MEDICAID, SELFPAY ==
--- NOTE | 2025-03-22 12:37 | A.OFFVIS_ITS ---
Vital Signs 03/22/25 12:49 Height 5 ft 2 in Weight 137 lb BMI 25.1 BP 114/64 Blood Pressure Location Rt brachial Position Sitting Pulse 94 Pulse Source Pulse Oximeter Pulse Oximetry (%) 97 Oxygen Delivery Method Room Air Intake Visit Reasons: 3 wks f/u Intake Note: ESTABLISHED PATIENT for mgmt of GERD + Abd pain. CC; C.O. epigastric pain, GERD, lack of appetite despite the Rx. Pt denies any additional sx at this time. Lens Cutter Required: Yes Lens Cutter Services: Lens Cutter Present Lens Cutter Name: Demetra [id number] + [facility] Information Interpreted: clinical only Accompanied by: Spouse Allergies metformin Adverse Reaction (Mild, Verified 03/22/25 12:37) stomach upset HPI HPI 3 wks f/u: Details: Assessment & Plan (1) Gastroparesis: Code(s): K31.84 - Gastroparesis Category: Medical (2) IBS (irritable bowel syndrome): Code(s): K58.9 - Irritable bowel syndrome, unspecified Category: Medical (3) Constipation: Code(s): K59.00 - Constipation, unspecified Category: Medical Plan [employer] #[id number], [place] Patient has been lost to follow-up since 02/2023 She says that her stomach is quite sore and she has been having a stomach ache and GERD with reflux and vomiting. This has been worse over the past 3 weeks. This does seem to coincide with when she started the oxycodone. It is likely t hat if this is exacerbating her gastroparesis so will increase her Reglan from 5 mg to 10 mg and her omeprazole from 20 mg to 40 mg. If this is not successful we may need to consider additional testing. In the past she was on omeprazole 20 mg once a day, Reglan 5 mg 4 times a day, dicyclomine, and senna. She denies any problems with moving her bowels. ROV 3 weeks. Medications: New omeprazole 40 mg PO DAILY 30 days 30 caps 3RF sennosides (senna) 17.2 mg (2 x 8.6 mg) PO BEDTIME PRN 60 tabs 6RF for constipation metoclopramide HCl (Reglan) 10 mg PO QIDACHS 120 tabs 3RF K31.84 - Gastroparesis Refilled docusate sodium (Colace) 100 mg PO BID PRN 30 caps 6RF constipation dicyclomine 20 mg PO .TIDAC 30 days 90 tabs 6RF K22.4 - Dyskinesia of esophagus Today's visit [place] #Donna Renae Her nausea and epigastric pain were only helped a little bit with the increase of the reglan. Her eating is limited due to severe pain in the epigastrium. Otherwise she has no diarrhea and never had any diarrhea, and she denies any other constitutional symptoms such as body aches, headache, rashes etc.. She also denies any recent changes in her medications in terms of either discontinuance additions or dose changes. She again confirms that the symptoms were of sudden onset. It is really quite puzzling the only thing I can think is that that has something to do with her diabetes control of her gastroparesis. I think it is time for rest spread a wide net and get a CBC, basic Chem panel, some pancreatic enzymes, urinalysis and an ultrasound. I am also going to increase her omeprazole to 40 mg twice a day to see if this gives her any comfort. She is currently on omeprazole 20 mg once a day, Reglan 10 mg 4 times a day, dicyclomine, and senna. Return office visit in 4 weeks [facility] Medical History Esophageal spasm Left shoulder pain Right wrist pain Mass of soft tissue of right upper extremity Difficulty swallowing Asthma Neuropathy Mild pulmonary hypertension Atypical chest pain Venous insufficiency Diabetic retinopathy associated with type 2 diabetes mellitus Diabetic 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 associated with type 2 diabetes mellitus extermination inspector (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 of insulin Papillary microcarcinoma of thyroid Gastroparesis Post-surgical hypothyroidism Gallstones Uninodular goiter Arthritis Retinopathy Depression Diabetes mellitus with hyperglycemia Type 2 diabetes mellitus with diabetic neuropathy, unspecified Hyperlipidemia LDL goal <100 Essential hypertension Vitamin D deficiency Surgical History S/P appendectomy Hx of tubal ligation Hx of appendectomy History of bladder surgery H/O colonoscopy H/O thyroidectomy Hx of eye surgery History of esophagogastroduodenoscopy (EGD) History of cholecystectomy Family History Father No problems noted. Mother Diabetes mellitus Daughter Diabetes mellitus Social History Household Members: Family Housing: House Are you a primary customer care representative to a significant other at home: No Do you presently have visiting nurse or other home services: No Alcohol intake: current Alcohol intake frequency: does not drink Comment: rings appropriately Patient Tobacco Use Status: Never used Tobacco Second Hand Smoke Exposure: No service: No Current occupational status: disabled Current occupation: right handed Female Reproductive History Menstrual Age of Menarche: 8 Review of Systems Const Denies fatigue, Denies fever(s), Denies night sweats, Denies poor appetite and Denies weight loss ENT Reports Normal hearing present, Denies dental pain, Denies dysphagia, Denies hearing loss, Denies mouth pain, Denies odynophagia, Denies throat swelling, Denies tongue swelling and Reports other (Dentition adequate) Card Reports no additional complaints Resp Reports no additional complaints GI Details: Reports abdominal pain, Denies melena, Denies bloating, Denies hematochezia, Denies constipation, Denies GI cramping, Denies dysphagia, Denies excessive flat us, Denies early satiety, Denies heartburn, Denies diarrhea, Reports nausea, Denies odynophagia, Denies vomiting and Denies hematemesis Skin/Breast Denies pruritus, Denies lesions, Denies rash and Denies jaundice Neuro Reports Normal hearing present and Denies Abnormal speech present Endo Denies fatigue Aller/Immun Denies throat swelling and Denies tongue swelling Physical Exam Const General: cooperative, no acute distress, well developed and well groomed Nutritional Appearance: well nourished and overweight Orientation/consciousness: oriented to person, oriented to place and oriented to time Limitations: language barrier HEENT Head: Yes normocephalic and Yes atraumatic Eyes General: appearance normal, both eyes and all related structures Pupils: Equal, round and reactive pupils present Neck Neck: Yes normal visual inspection and Yes no lymphadenopathy Thyroid: Thyroid normal Resp Effort & Inspection: normal respiratory effort and able to speak in complete sentences Auscultation: clear to auscultation bilaterally Cardio Rate: regular rate Rhythm: regular rhythm Heart sounds: Normal, physiologic split S2 sound present Peripheral pulses: radial pulses present and posterior tibial pulses present GI Inspection: No distended and No Abdominal panniculus present Palpation (GI): Soft to palpation, Tenderness to palpation present (GI) in the epigastrum, no guarding, not rigid and No hepatosplenomegaly present Percussion: Yes normal to percussion Auscultation: normal bowel sounds Rectal Exam - Female: deferred Skin General skin exam: no rashes or lesions noted, turgor normal, skin not dry, no jaundice, No spider nevi and no striae Rashes: no rashes Nails: normal Neuro General: oriented to person, oriented to place and oriented to time Cranial nerves: Yes Equal, round and reactive pupils present and Yes Normal hearing present Speech: No Abnormal speech present Extrem General: Yes normal to inspection, No clubbing, No cyanosis and No edema Psych Appearance: grossly normal and well kempt Mental Status: mental status grossly normal Speech and movement: Normal speech and movement present Affect: normal affect Attitude: cooperative Thought process: Normal thought process present and not confabulating Thought content: Normal thought content present Insight: Fair insight present (Psych) and Limited insight present (Psych) Judgement: Fair judgement present (Psych) and Limited judgement present (Psych) Assessment & Plan Assessment & Plan (1) Epigastric pain: Code(s): R10.13 - Epigastric pain Category: Medical (2) Diabetes mellitus with hyperglycemia: Code(s): E11.65 - Type 2 diabetes mellitus with hyperglycemia Category: Medical Qualifiers: Diabetes mellitus type: type 2 Diabetes mellitus fpc insulin use: with fpc use Qualified Code(s): E11.65 - Type 2 diabetes mellitus with hyperglycemia; Z79.4 - extermination inspector (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 of insulin (3) Nausea: Code(s): R11.0 - Nausea Category: Medical Plan [employer] #Donna Live Her nausea and epigastric pain were only helped a little bit with the increase of the reglan. Her eating is limited due to severe pain in the epigastrium. Otherwise she has no diarrhea and never had any diarrhea, and she denies any other constitutional symptoms such as body aches, headache, rashes etc.. She also denies any recent changes in her medications in terms of either discontinuance additions or dose changes. She again confirms that the symptoms were of sudden onset. It is really quite puzzling the only thing I can think is that that has something to do with her diabetes control of her gastroparesis. I think it is time for rest spread a wide net and get a CBC, basic Chem panel, some pancreatic enzymes, urinalysis and an ultrasound. I am also going to increase her omeprazole to 40 mg twice a day to see if this gives her any comfort. She is currently on omeprazole 20 mg once a day, Reglan 10 mg 4 times a day, dicyclomine, and senna. Return office visit in 4 weeks Orders: Orders Complete Blood Count Auto Diff Today R10.13 - Epigastric pain Lipase Today R10.13 - Epigastric pain US abdomen complete Today R10.13 - Epigastric pain Comprehensive Met. Panel Today R10.13 - Epigastric pain Amylase Today R10.13 - Epigastric pain UA CC w/rflx Micro + Cult Today R10.13 - Epigastric pain Hemoglobin A1c Today E11.65 - Type 2 diabetes mellitus with hyperglycemia, Z79.4 - extermination inspector (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 of insulin Medications: Changed From omeprazole 40 mg PO DAILY 30 days 30 caps 3RF To omeprazole 40 mg PO BID 30 days 60 caps 3RF Coding Level of Care Code Est Pt Level 4 (57723) Diagnoses Epigastric pain R10.13 Type 2 diabetes mellitus with hyperglycemia, with long-term current use of insulin E11.65; Z79.4 Diabetes mellitus type: type 2 Diabetes mellitus extermination inspector insulin use: with extermination inspector use Nausea R11.0
[2025-03-22 12:49] VITALS: BP 114/64; PULSE 94; O2SAT 97; BMI 25.1
--- OUTSIDE RECORDS SUMMARY | 2025-03-22 14:38 | XMS_ITS | Encounter Summary ---
Author Organization [employer] Address [address] [facility] 7t [place] [address] Care Team Providers Care Heart Surgeon Name Role Phone NameRoel MD Primary Care Provider [phone] Reason for Visit * Reason Onset Date Comments Results 04/19/2024 Encounter Details Date Type Department Care Team ([facility] st Contact Info) Description 04/19/2024 Telephone [facility] MEDICINE [address] [place], [place] [phone] Name, MD Roel [address] [place] [address] Results Social History Tobacco Use Types Packs/Day [...] Care Team (Late st Contact Info) Description 04/09/2025 10:00 AM EDT Office Visit [facility] ADULT DENTAL [address] [place] [address] Najma Interiano DDS [address] [place], [place] [phone] documented as of this encounter Visit Diagnoses Not on filedocumented in this encounter Additional Health Concerns Assessment Noted Time PHQ-9 Depression Total Score: 0 12/31/19 24 10:54 AM EDT documented as of this encounter Care Teams Heart Surgeon Relationship Specialty Start Date End Date Name, MD Roel [address] [place] [address] PCP - General Family Medicine 10/04/17 documented as of this encounter
== END 2025-03-22 13:04 | disposition home or self-care (01) ==
LOC: HO.HGI 12:34
PROVIDERS: PCP Internal Medicine Geriatric Medicine; Visit Provider Nurse Practitioner
DX: R10.13 Epigastric pain (principal); E11.65 Type 2 diabetes mellitus with hyperglycemia; Z79.4 Long term (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 of insulin; R11.0 Nausea
CPT/HCPCS: 99214

== ENCOUNTER 2025-03-23 10:39 | Outpatient (REF) | payer MEDICAID, SELFPAY ==
[2025-03-23 10:49] LABS: Appearance Urine Clear; Color Urine Yellow; Glucose Urine UA >=1000 mg/dL (Negative); Leukocyte Esterase Urine Negative (Negative); Nitrite Urine Negative (Negative); Specific Gravity - Urine >= 1.030 (1.005-1.025); UMIC TRIGGER UACC YES; Urine Blood Negative (Negative); Urine Ketones Negative (Negative); Urine Protein Negative (Neg-Trace)
[2025-03-23 11:08] LABS: Bacteria Urine None Seen (None Seen); Hyaline Casts Urine 0-2 /LPF (0-2); RBC Urine 0-2 /HPF (0-2); Squamous Epithelial Cell Urine 0-2 /HPF (0-2); WBC Urine 0-5 /HPF (0-5)
== END 2025-03-23 10:40 | disposition home or self-care (01) ==
LOC: HO.LNP 10:39
PROVIDERS: Visit Provider Nurse Practitioner
DX: R10.13 Epigastric pain (principal)
CPT/HCPCS: 81001

== ENCOUNTER 2025-03-29 14:39 | Outpatient (REF) | payer MEDICAID, SELFPAY ==
--- OUTSIDE RECORDS SUMMARY | 2025-03-29 17:13 | XMS_ITS | Encounter Summary ---
Author Organization [employer] Address [address] [facility] 7t [place] [address] Care Team Providers Care Upper Cutter Name Role Phone NameRoel MD Primary Care Provider [phone] Reason for Visit * Reason Onset Date Comments Results 04/19/2024 Encounter Details Date Type Department Care Team ([facility] st Contact Info) Description 04/19/2024 Telephone [facility] MEDICINE [address] [place], [place] [phone] Name, MD Roel [address] [place] [address] Results Social History Tobacco Use Types Packs/Day [...] Description 04/09/2025 10:00 AM EDT Office Visit [facility] ADULT DENTAL [address] [place] [address] Najma Interiano DDS [address] [place], [place] [phone] documented as of this encounter Visit Diagnoses Not on filedocumented in this encounter Additional Health Concerns Assessment Noted Time PHQ-9 Depression Total Score: 0 12/31/19 24 10:54 AM EDT documented as of this encounter Care Teams Upper Cutter Relationship Specialty Start Date End Date Name, MD Roel [address] [place] [address] PCP - General Family Medicine 10/04/17 documented as of this encounter
== END 2025-03-29 14:40 | disposition home or self-care (01) ==
LOC: HO.MAMMO 14:39
PROVIDERS: PCP Internal Medicine Geriatric Medicine; Visit Provider Internal Medicine Geriatric Medicine
DX: Z12.31 Encounter for screening mammogram for malignant neoplasm of breast (principal)
CPT/HCPCS: 77063; 77067

== ENCOUNTER → 2025-03-29 15:00 | Outpatient (BNV) | payer MEDICAID, SELFPAY | PROVIDERS: PCP Internal Medicine Geriatric Medicine; Visit Provider Internal Medicine | DX: Z12.31 Encounter for screening mammogram for malignant neoplasm of breast (principal) | CPT/HCPCS: 77063; 77067 ==

== ENCOUNTER 2025-03-30 08:49 | Outpatient (REF) | payer MEDICAID, SELFPAY ==
--- OUTSIDE RECORDS SUMMARY | 2025-03-30 09:05 | XMS_ITS | Encounter Summary ---
Author Organization [employer] Address [address] [facility] 7t [place] [address] Care Team Providers Care Java Oracle Developer Name Role Phone NameRoel MD Primary Care Provider [phone] Reason for Visit * Reason Onset Date Comments Results 04/19/2024 Encounter Details Date Type Department Care Team ([facility] st Contact Info) Description 04/19/2024 Telephone [facility] MEDICINE [address] [place], [place] [phone] Name, MD Role [address] [place] [address] Results Social History Tobacco Use Types Packs/Day [...] [facility] [address] [place] [address] Najma Interiano DDS [address] [place], [place] [phone] documented as of this encounter Visit Diagnoses Not on filedocumented in this encounter Additional Health Concerns Assessment Noted Time PHQ-9 Depression Total Score: 0 12/31/19 24 10:54 AM EDT documented as of this encounter Care Teams Java Oracle Developer Relationship Specialty Start Date End Date Name, MD Roel [address] [place] [address] PCP - General Family Medicine 10/04/17 documented as of this encounter
[2025-03-30 11:15] LABS: Appearance Urine Clear; Color Urine Yellow; Glucose Urine UA >=1000 mg/dL (Negative); Leukocyte Esterase Urine Negative (Negative); Nitrite Urine Negative (Negative); Specific Gravity - Urine >= 1.030 (1.005-1.025); UMIC TRIGGER UACC YES; Urine Blood Negative (Negative); Urine Ketones Negative (Negative); Urine Protein Negative (Neg-Trace)
[2025-03-30 11:18] LABS: Bacteria Urine None Seen (None Seen); Hyaline Casts Urine 0-2 /LPF (0-2); RBC Urine 0-2 /HPF (0-2); Squamous Epithelial Cell Urine 0-2 /HPF (0-2); WBC Urine 0-5 /HPF (0-5)
[2025-03-30 11:27] LABS: Alanine Aminotransferase 23 U/L (0-31); Albumin Level 4.5 g/dL (3.5-5.0); Alkaline Phosphatase 96 U/L (39-117); Anion Gap 11 (12-20); Aspartate Amino Transferase 29 U/L (5-31); Bilirubin Total 0.3 mg/dL (0.0-1.0); Blood Urea Nitrogen 13 mg/dL (9-16); Calcium 9.9 mg/dL (8.4-10.2); Carbon Dioxide 30 mmol/L (22-29); Chloride 104 mmol/L (96-108); Cholesterol 167 mg/dL (<200); Estimated Glomerular Filt Rate > 60; Glucose Random 151 mg/dL (60-115); HDL Cholesterol 65 mg/dL (>40); LDL Cholesterol Calculated 91 mg/dL (<100); Potassium 4.2 mmol/L (3.3-5.1); Sodium 141 mmol/L (135-145); Total Protein 7.6 g/dL (6.5-8.0); Triglycerides 58 mg/dL (<150)
== END 2025-03-30 08:50 | disposition home or self-care (01) ==
LOC: HO.HHCL 08:49
PROVIDERS: Internal Medicine Geriatric Medicine; Visit Provider Nurse Practitioner
DX: E11.69 Type 2 diabetes mellitus with other specified complication (principal); Z79.4 Long term (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 of insulin; R10.13 Epigastric pain
CPT/HCPCS: 36415; 80053; 80061; 81001

== ENCOUNTER 2025-04-11 08:53 | Outpatient (AMB) | payer MEDICAID, SELFPAY ==
[2025-04-11 08:55] VITALS: BMI 25.1
--- NOTE | 2025-04-11 08:55 | A.OFFVIS_ITS ---
Vital Signs 04/11/25 08:55 Height 5 ft 2 in Weight 137 lb BMI 25.1 Intake Visit Reasons: PO LT shoulder 01/26/25 D Intake Note: Lolly is a 60 year old female who presents today post-operatively after undergoing left shoulder arthroscopy 01/26/25. She reports mild intermittent discomfort in her shoulder. She takes Tylenol as needed. She continues with her home stretching program. Police Reserves Commander Required: Yes Police Reserves Commander Services: Police Reserves Commander Present Police Reserves Commander Name: Chhaya ID#[id number] Allergies metformin Adverse Reaction (Mild, Verified 04/11/25 09:00) stomach upset Medication List - Last Reconciled 04/11/25 by Freedom Huggins MD acetaminophen 500 mg PO Q6H PRN albuterol sulfate 2.5 mg inhalation Q6H PRN albuterol sulfate 90 mcg/actuation 2 puffs inhalation Q4-6H PRN amlodipine 5 mg PO DAILY aspirin (Adult Low Dose Aspirin) 81 mg PO DAILY cholecalciferol (vitamin D3) (Vitamin D3) 50 mcg PO DAILY dicyclomine 20 mg PO .TIDAC 30 days docusate sodium (Colace) 100 mg PO BID PRN dulaglutide (Trulicity) 3 mg (0.5 mL) subcut QWEEK empagliflozin (Jardiance) 25 mg PO QAM enalapril maleate 20 mg PO BEDTIME flash glucose scanning reader (FreeStyle Rama 2 [place]) As directed flash glucose sensor (FreeStyle Rama 2 Sensor kit) As directed change every 2 weeks FreeStyle Lancets (lancets) four times daily NS FreeStyle Lite Meter (blood-glucose meter) As directed NS FreeStyle Lite Strips (blood sugar diagnostic) TEST BLOOD SUGAR FOUR TIMES DAILY NS gabapentin 300 mg PO BEDTIME hydrochlorothiazide 12.5 mg PO DAILY hydroxychloroquine 200 mg PO BID ibuprofen 600 mg PO Q8H PRN insulin aspart U-100 4 units small meals, 8 medium meals and 10 units large meals, + 2 units for bg over 200 subcut 3 times a day; subcut 3 times a day; 30 days insulin glargine U-300 conc (Toujeo Max U-300 SoloStar) 36 units (0.12 mL) subcut BEDTIME levothyroxine 88 mcg PO DAILY 90 days metformin 1/2 tablet PO daily; metoclopramide HCl (Reglan) 10 mg PO QIDACHS montelukast 10 mg PO BEDTIME omeprazole 40 mg PO BID 30 days ondansetron 4 mg PO Q6-8H PRN oxycodone 5 mg PO Q4H PRN pen needle, diabetic (BD Ultra-Fine Sandy Pen Needle) USE DIRECTED FOUR TIMES DAILY pioglitazone 30 mg PO QAM pravastatin 20 mg PO BEDTIME sennosides (senna) 17.2 mg (2 x 8.6 mg) PO BEDTIME PRN sertraline 100 mg PO QAM trazodone 100 mg PO BEDTIME PRN PFSH Medical History (Updated 04/11/25 @ 09:04 by Freedom Huggins MD) Left shoulder pain Esophageal spasm Right wrist pain Mass of soft tissue of right upper extremity Difficulty swallowing Asthma Neuropathy Mild pulmonary hypertension Atypical chest pain Venous insufficiency Diabetic retinopathy associated with type 2 diabetes mellitus Diabetic 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 associated with type 2 diabetes mellitus jail (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 of insulin Papillary microcarcinoma of thyroid Gastroparesis Post-surgical hypothyroidism Gallstones Uninodular goiter Arthritis Retinopathy Depression Diabetes mellitus with hyperglycemia Type 2 diabetes mellitus with diabetic neuropathy, unspecified Hyperlipidemia LDL goal <100 Essential hypertension Vitamin D deficiency Surgical History S/P appendectomy Hx of tubal ligation Hx of appendectomy History of bladder surgery H/O colonoscopy H/O thyroidectomy Hx of eye surgery History of esophagogastroduodenoscopy (EGD) History of cholecystectomy Family History Father No problems noted. Mother Diabetes mellitus Daughter Diabetes mellitus Social History Household Members: Family Housing: House Are you a primary complex care nurse practitioner to a significant other at home: No Do you presently have visiting nurse or other home services: No Alcohol intake: current Alcohol intake frequency: does not drink Comment: rings appropriately Patient Tobacco Use Status: Never used Tobacco Second Hand Smoke Exposure: No service: No Current occupational status: disabled Current occupation: right handed Female Reproductive History Menstrual Age of Menarche: 8 Physical Exam Vital Signs: BMI result Body Mass Index 25.1 Extrem Other: Left shoulder examination shows that the surgical incisions are well healed, no erythema, almost full range of motion when compared to her right shoulder, 5/5 strength with supraspinatus testing, no instability Assessment & Plan Assessment & Plan (1) Left shoulder pain: Code(s): M25.512 - Pain in left shoulder Category: Medical Plan Ms. Anjum Hinds continues to do well after undergoing left shoulder arthroscopic surgery on 01/26/2025. She will continue with her home stretching program. The do's and don'ts of lifting were discussed at length with the patient. She will contact me prior to her follow-up appointment in 3 months should any questions or concerns arise. Feel free to call me at any time should questions regarding her orthopedic management arise. Coding Level of Care Code Global (90095) Diagnoses Left shoulder pain M25.512
--- OUTSIDE RECORDS SUMMARY | 2025-04-11 09:31 | XMS_ITS | Encounter Summary ---
Author Organization [employer] Address [address] [facility] [address] [place] [address] Care Team Providers Care Equipment Service Technician Name Role Phone NameRoel MD Primary Care Provider [phone] Reason for Visit * Reason Onset Date Comments Results 04/19/2024 Encounter Details Date Type Department Care Team ([facility] st Contact Info) Description 04/19/2024 Telephone [facility] MEDICINE [address] [place], [place] [phone] Name, MD Roel [address] [place] [address] Results Social History Tobacco Use Types Packs/Day [...] Care Team (Late st Contact Info) Description 04/23/2025 3:00 PM EDT Office Visit [facility] ADULT DENTAL [address] [place] [address] Pili Kathleen [address] [place] [address] 07/17/2025 3:15 PM EDT Office Visit [facility] MEDICINE [address] [place] [address] Name, MD Roel [address] [place] [address] documented as of this encounter Visit Diagnoses Not on filedocumented in this encounter Additional Health Concerns Assessment Noted Time PHQ-9 Depression Total Score: 0 12/31/19 24 10:54 AM EDT documented as of this encounter Care Teams Equipment Service Technician Relationship Specialty Start Date End Date Name, MD Roel [address] [place] [id number] PCP - General Family Medicine 10/04/17 documented as of this encounter
== END 2025-04-11 09:03 | disposition home or self-care (01) ==
LOC: HO.HOS 08:54
PROVIDERS: PCP Internal Medicine Geriatric Medicine; Visit Provider Orthopaedic Surgery
DX: M25.512 Pain in left shoulder (principal)
CPT/HCPCS: 99024

== ENCOUNTER → 2025-04-11 08:53 | Outpatient (BNVA) | payer MEDICAID, SELFPAY | PROVIDERS: PCP Internal Medicine Geriatric Medicine; Visit Provider Orthopaedic Surgery | DX: M25.512 Pain in left shoulder (principal); Z98.890 Other specified postprocedural states | CPT/HCPCS: 99212 ==

== ENCOUNTER 2025-05-10 09:18 | Outpatient (AMB) | payer MEDICAID, SELFPAY ==
--- NOTE | 2025-05-10 09:19 | A.OFFVIS_ITS ---
Vital Signs 05/10/25 09:36 Height 5 ft 2 in Weight 139 lb 5.314 oz BMI 25.5 BP 117/62 Blood Pressure Location Rt brachial Position Sitting Pulse 88 Intake Visit Reasons: epi pain, N/V Intake Note: Lolly returns in follow up of labs. CC: Patient reports feeling worse than before. She c/o epigastric, generalized abdominal pain, chills, and vomiting. She states that on Wednesday she had to go to the [facility] clinic and was given Tums and nausea medication but it has not helped her symptoms. Corporate Auditor Required: Yes Corporate Auditor Language: Chinese Accompanied by: Spouse Allergies metformin Adverse Reaction (Mild, Verified 05/10/25 09:43) stomach upset HPI HPI epi pain, N/V: Details: Assessment & Plan (1) Epigastric pain: Code(s): R10.13 - Epigastric pain Category: Medical (2) Diabetes mellitus with hyperglycemia: Code(s): E11.65 - Type 2 diabetes mellitus with hyperglycemia Category: Medical Qualifiers: Diabetes mellitus type: type 2 Diabetes mellitus bed bug exterminator insulin use: with detention use Qualified Code(s): E11.65 - Type 2 diabetes mellitus with hyperglycemia; Z79.4 - jail (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 of insulin (3) Nausea: Code(s): R11.0 - Nausea Category: Medical Plan Chinese #Donna Renae Her nausea and epigastric pain were only helped a little bit with the increase of the reglan. Her eating is limited due to severe pain in the epigastrium. Otherwise she has no diarrhea and never had any diarrhea, and she denies any other constitutional symptoms such as body aches, headache, rashes etc.. She also denies any recent changes in her medications in terms of either discontinuance additions or dose changes. She again confirms that the symptoms were of sudden onset. It is really quite puzzling the only thing I can think is that that has something to do with her diabetes control of her gastroparesis. I think it is time for rest spread a wide net and get a CBC, basic Chem panel, some pancreatic enzymes, urinalysis and an ultrasound. I am also going to increase her omeprazole to 40 mg twice a day to see if this gives her any comfort. She is currently on omeprazole 20 mg once a day, Reglan 10 mg 4 times a day, dicyclomine, and senna. Return office visit in 4 weeks Orders: Orders Complete Blood Count Auto Diff Today R10.13 - Epigastric pain Lipase Today R10.13 - Epigastric pain US abdomen complete Today R10.13 - Epigastric pain Comprehensive Met. Panel Today R10.13 - Epigastric pain Amylase Today R10.13 - Epigastric pain UA CC w/rflx Micro + Cult Today R10.13 - Epigastric pain Hemoglobin A1c Today E11.65 - Type 2 diabetes mellitus with hyperglycemia, Z79.4 - jail (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 of insulin Medications: Changed From omeprazole 40 mg PO DAILY 30 days 30 caps 3RF To omeprazole 40 mg PO BID 30 days 60 caps 3RF Labs: Laboratory Tests 03/22/25 03/30/25 13:26 08:51 WBC 5.4 Hgb 13.5 Hct 41.9 Plt Count 241 Estimated GFR > 60 Total Bilirubin 0.3 AST 29 ALT 23 Alkaline Phosphatase 96 Amylase 84 Lipase 36 ULTRASOUND OF THE ABDOMEN scheduled for 07/04 TODAY'S VISIT Chinese #Kwabena She is here today with her who is supportive Unfortunately, her nausea and vomiting has only worsened. Now it is so bad that she can not even take any of her pills in the only medication she has been ta ramsey his her Trulicity. All of her medications come in a med box so she does not know which 1 is the Reglan. Because of this I think something happened and her diabetic gastroparesis is becoming more and more out of control because she did not understand how to prioritize which medications to take. As much as I hate to do this I think we need to stop the Trulicity since it contribute to increased gastroparesis and have her take if nothing else, only the Reglan to get her GI system restarted. She is uncertain which pill it is so I am going to have her bring the home med box in so I can identify it for her. I would have her come in sooner but she has not emergency and has to fly to [place] with the undetermined return date. Because of the she had rescheduled her ultrasound further out. I am also going to order an EGD since we are booking into July in case we do not have resolution with the above strategy. Hopefully if we can get the nausea and vomiting under control we can then slowly add back in her other chronic medications. However, she is not doing any good to her health now since she is not getting any of the med including her thyroid medicines. Return office visit after the ultrasound in June. [facility] Medical History (Updated 05/10/25 @ 10:09 by CHRISTOPHER Farr) Left shoulder pain Esophageal spasm Right wrist pain Mass of soft tissue of right upper extremity Difficulty swallowing Asthma Neuropathy Mild pulmonary hypertension Atypical chest pain Venous insufficiency Diabetic retinopathy associated with type 2 diabetes mellitus Diabetic 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 associated with type 2 diabetes mellitus jail (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 of insulin Papillary microcarcinoma of thyroid Gastroparesis Post-surgical hypothyroidism Gallstones Uninodular goiter Arthritis Retinopathy Depression Diabetes mellitus with hyperglycemia Type 2 diabetes mellitus with diabetic neuropathy, unspecified Hyperlipidemia LDL goal <100 Essential hypertension Vitamin D deficiency Surgical History S/P appendectomy Hx of tubal ligation Hx of appendectomy History of bladder surgery H/O colonoscopy H/O thyroidectomy Hx of eye surgery History of esophagogastroduodenoscopy (EGD) History of cholecystectomy Family History Father No problems noted. Mother Diabetes mellitus Daughter Diabetes mellitus Social History Household Members: Family Housing: House Are you a primary care consultant to a significant other at home: No Do you presently have visiting nurse or other home services: No Alcohol intake: current Alcohol intake frequency: does not drink Comment: rings appropriately Patient Tobacco Use Status: Never used Tobacco Second Hand Smoke Exposure: No service: No Current occupational status: disabled Current occupation: right handed Female Reproductive History Menstrual Age of Menarche: 8 Review of Systems Const Reports chills, Denies fatigue, Denies fever(s), Reports headache(s), Denies night sweats, Reports poor appetite and Denies weight loss ENT Reports Normal hearing present, Denies dental pain, Denies dysphagia, Reports headache(s), Denies hearing loss, Denies mouth pain, Denies odynophagia, Denies throat swelling, Denies tongue swelling and Reports other (Dentition adequate) Card Reports no additional complaints Resp Reports no additional complaints GI Details: Denies abdominal pain, Denies melena, Denies bloating, Denies hematochezia, Denies constipation, Denies GI cramping, Denies dysphagia, Denies excessive flatus, Denies early satiety, Denies heartburn, Denies diarrhea, Reports nausea, Denies odynophagia, Reports vomiting and Denies hematemesis Skin/Breast Denies pruritus, Denies lesions, Denies rash and Denies jaundice Neuro Reports Normal hearing present, Denies Abnormal speech present and Reports headache(s) Endo Denies fatigue Aller/Immun Denies throat swelling and Denies tongue swelling Physical Exam Vital Signs: Last Vital Signs Pulse 88 05/10/25 09:36 BP 117/62 05/10/25 09:36 BMI result Body Mass Index 25.5 Const General: cooperative, no acute distress, well developed and well groomed Nutritional Appearance: average body habitus and well nourished Orientation/consciousness: oriented to person, oriented to place and oriented to time Limitations: language barrier HEENT Head: Yes normocephalic and Yes atraumatic Eyes General: appearance normal, both eyes and all related structures Pupils: Equal, round and reactive pupils present Neck Neck: Yes normal visual inspection and Yes no lymphadenopathy Thyroid: Thyroid normal Resp Effort & Inspection: normal respiratory effort and able to speak in complete sentences Auscultation: clear to auscultation bilaterally Cardio Rate: regular rate Rhythm: regular rhythm Heart sounds: Normal, physiologic split S2 sound present Peripheral pulses: radial pulses present and posterior tibial pulses present GI Inspection: No distended and No Abdominal panniculus present Palpation (GI): Soft to palpation, nontender, no guarding, not rigid and No hepatosplenomegaly present Percussion: Yes normal to percussion Auscultation: normal bowel sounds Rectal Exam - Female: deferred Skin General skin exam: no rashes or lesions noted, turgor normal, skin not dry, no jaundice, No spider nevi and no striae Rashes: no rashes Nails: normal Neuro General: oriented to person, oriented to place and oriented to time Cranial nerves: Yes Equal, round and reactive pupils present and Yes Normal hearing present Speech: No Abnormal speech present Extrem General: Yes normal to inspection, No clubbing, No cyanosis and No edema Psych Appearance: grossly normal and well kempt Mental Status: mental status grossly normal Speech and movement: Normal speech and movement present Affect: normal affect Attitude: cooperative Thought process: Normal thought process present and not confabulating Thought content: Normal thought content present Insight: Limited insight present (Psych) Judgement: Limited judgement present (Psych) Results Reviewed Results Reviewed: Laboratory Tests 03/22/25 03/30/25 13:26 08:51 WBC 5.4 Hgb 13.5 Hct 41.9 Plt Count 241 Estimated GFR > 60 Total Bilirubin 0.3 AST 29 ALT 23 Alkaline Phosphatase 96 Amylase 84 Lipase 36 Assessment & Plan Assessment & Plan (1) Gastroparesis: Code(s): K31.84 - Gastroparesis Category: Medical (2) Nausea and vomiting: Code(s): R11.2 - Nausea with vomiting, unspecified Category: Medical Plan Chinese #Kwabena She is here today with her who is supportive Unfortunately, her nausea and vomiting has only worsened. Now it is so bad that she can not even take any of her pills in the only medication she has been taking his her Trulicity. All of her medications come in a med box so she does not know which 1 is the Reglan. Because of this I think something happened and her diabetic gastropares is is becoming more and more out of control because she did not understand how to prioritize which medications to take. As much as I hate to do this I think we need to stop the Trulicity since it con tribute to increased gastroparesis and have her take if nothing else, only the Reglan to get her GI system restarted. She is uncertain which pill it is so I am going to have her bring the home med box in so I can identify it for her. I would have her come in sooner but she has not emergency and has to fly to [place] with the undetermined return date. Because of the she had rescheduled her ultrasound further out. I am also going to order an EGD since we are booking into July in case we do not have resolution with the above strategy. Hopefully if we can get the nausea and vomiting under control we can then slowly add back in her other chronic medications. However, she is not doing any good to her health now since she is not getting any of the med including her thyroid medicines. Return office visit after the ultrasound in June. Orders: Orders EGD - GI Use Only Today K31.84 - Gastroparesis, R11.2 - Nausea with vomiting, unspecified Coding Level of Care Code Est Pt Level 4 (87888) Diagnoses Gastroparesis K31.84 Nausea and vomiting R11.2
[2025-05-10 09:36] VITALS: BP 117/62; PULSE 88; BMI 25.5
--- OUTSIDE RECORDS SUMMARY | 2025-05-10 09:50 | XMS_ITS | Encounter Summary ---
Author Organization [employer] Address [address] [facility] 7t [place] [address] Care Team Providers Care Toe Closing Machine Tender Name Role Phone NameRoel MD Primary Care Provider [phone] Reason for Visit * Reason Onset Date Comments Results 04/19/2024 Encounter Details Date Type Department Care Team ([facility] st Contact Info) Description 04/19/2024 Telephone [facility] MEDICINE [address] [place], [place] [phone] Name, MD Roel [address] [place] [address] Results Social History Tobacco Use Types Packs/Day [...] Care Team (Late st Contact Info) Description 07/17/2025 3:15 PM EDT Office Visit [facility] MEDICINE [address] [place] [address] Name, MD Roel [address] [place] [address] documented as of this encounter Visit Diagnoses Not on filedocumented in this encounter Additional Health Concerns Assessment Noted Time PHQ-9 Depression Total Score: 0 12/31/19 24 10:54 AM EDT documented as of this encounter Care Teams Toe Closing Machine Tender Relationship Specialty Start Date End Date Name, MD Roel [address] [place] [address] PCP - General Family Medicine 10/04/17 documented as of this encounter
== END 2025-05-10 10:16 | disposition home or self-care (01) ==
LOC: HO.HGI 09:19
PROVIDERS: PCP Internal Medicine Geriatric Medicine; Visit Provider Nurse Practitioner
DX: K31.84 Gastroparesis (principal); R11.2 Nausea with vomiting, unspecified
CPT/HCPCS: 99214

== ENCOUNTER → 2025-05-10 09:18 | Outpatient (BNVA) | payer MEDICAID, SELFPAY | PROVIDERS: PCP Internal Medicine Geriatric Medicine; Visit Provider Nurse Practitioner | DX: K31.84 Gastroparesis (principal); R11.2 Nausea with vomiting, unspecified | CPT/HCPCS: 99212 ==

== ENCOUNTER 2025-07-04 10:04 | Outpatient (REF) | payer MEDICAID, SELFPAY ==
--- NOTE | ~2025-07-04 | US_ITS ---
EXAMINATION: US ABDOMEN COMPLETE CLINICAL INFORMATION: R10.13. Epigastric pain.. COMPARISON: December 18, 2019. Correlated to CT abdomen and pelvis dated April 24, 2024. TECHNIQUE: Real-time ultrasound of the abdomen using grayscale technique. FINDINGS: PANCREAS: No peripancreatic fluid collections or gross 8 pancreatic ductal dilatation. ABDOMINAL AORTA: The proximal, mid, and distal segments are normal in caliber. INFERIOR VENA CAVA: Visualized portions are normal. LIVER: Liver measures 14 cm. No nodular surface. Coarse echotexture. No gross solid or cystic lesion. No intrahepatic biliary ductal dilatation. GALLBLADDER: Cholecystectomy. COMMON BILE DUCT 3 mm. RIGHT KIDNEY: 11 cm. Normal echotexture. Normal renal cortical thickness. No hydronephrosis. No gross solid or cystic lesion. LEFT KIDNEY: 11 cm. Normal echotexture. Normal renal cortical thickness. No hydronephrosis. No gross solid or cystic lesion. SPLEEN: 10 cm. No gross lesion.. FREE FLUID: None. US/US abdomen complete IMPRESSION: No intrahepatic or extrahepatic biliary ductal dilatation. Probable hepatic steatosis versus less likely, hepatocellular disease. No ascites. No hydronephrosis. Electronically signed by: Stephen Green MD 07/04/2025 11:28 AM EDT
--- OUTSIDE RECORDS SUMMARY | 2025-07-04 12:13 | XMS_ITS | Encounter Summary ---
Author Organization [facility] Address [address] [place] [address] 7t [place] [address] Care Team Providers Care Handtools Repairer Name Role Phone Name, Roel ORTEGA Primary Care Provider [phone] Encounter Details Date Type Department Care Team (Late st Contact Info) Description 09/15/2022 Abstract [facility] ADULT DENTAL [address] [place] [address] Dental, Provider, DDS Social History Tobacco Use [...] Description 07/17/2025 3:15 PM EDT Office Visit [facility] MEDICINE [address] [place] [address] Name, MD Roel [address] [place] [address] 12/27/2025 8:45 AM EDT Office Visit [facility] ADULT DENTAL [address] [place] [address] Kathleen Alejandre [address] [place] [address] documented as of this encounter Visit Diagnoses Not on filedocumented in this encounter Care Teams Handtools Repairer Relationship Specialty Start Date End Date Name, MD Roel [address] [place] [address] PCP - General Family Medicine 10/04/17 documented as of this encounter
--- OUTSIDE RECORDS SUMMARY | 2025-07-04 12:13 | XMS_ITS | Encounter Summary ---
Author Organization [facility] Address [address] [facility] 7t [place] [address] Care Team Providers Care Check Processor Name Role Phone Name, Roel ORTEGA Primary Care Provider [phone] Encounter Details Date Type Department Care Team (Late st Contact Info) Description 03/19/2023 Abstract [facility] MEDICINE [address] [place] [phone] Name, MD Roel [address] [place] [id number] Social History Tobacco Use Types Packs/Day Years [...] Department Care Team (Late Contact Info) Description 07/17/2025 3:15 PM EDT Office Visit [facility] MEDICINE [address] [place] [address] Name, MD Roel [address] [place] [address] 12/27/2025 8:45 AM EDT Office Visit [facility] ADULT DENTAL [address] [place] [address] Pili, Kathleen [address] [place] [address] documented as of this encounter Visit Diagnoses Not on filedocumented in this encounter Additional Health Concerns Assessment Noted Time PHQ-9 Depression Total Score: 0 11/03/19 23 8:54 AM EST documented as of this encounter Care Teams Check Processor Relationship Specialty Start Date End Date Name, MD Roel [address] [place] [address] PCP - General Family Medicine 10/04/17 documented as of this encounter
--- OUTSIDE RECORDS SUMMARY | 2025-07-04 12:13 | XMS_ITS | Encounter Summary ---
Author Organization [employer] Address [address] [facility] 7t [place] [address] Care Team Providers Care Junior Accountant Bookkeeper Name Role Phone NameRoel MD Primary Care Provider [phone] Reason for Visit * Reason Comments Med Refill Encounter Details Date Type Department Care Team ([facility] st Contact Info) Description 06/05/2024 Refill [facility] MEDICINE [address] [place], [place] [phone] Name, MD Roel [address] [place] [address] Essential hypertension Social History Tobacco Use Types [...] Description 07/17/2025 3:15 PM EDT Office Visit [facility] MEDICINE [address] [place] [phone] Name, MD Roel [address] [place] [address] 12/27/2025 8:45 AM EDT Office Visit [facility] ADULT DENTAL [address] [place] [address] Pili, Kathleen [address] [place] [address] documented as of this encounter Visit Diagnoses Diagnosis Essential hypertension Unspecified essential hypertension documented in this encounter Additional Health Concerns Assessment Noted Time PHQ-9 Depression Total Score: 0 12/31/19 24 10:54 AM EDT documented as of this encounter Care Teams Junior Accountant Bookkeeper Relationship Specialty Start Date End Date NameRoel MD [address] [place] [id number] PCP - General Family Medicine 10/04/17 documented as of this encounter
--- OUTSIDE RECORDS SUMMARY | 2025-07-04 12:13 | XMS_ITS | Encounter Summary ---
Author Organization [employer] Address [address] [facility] 7t [place] [address] Care Team Providers Care Family Mediator Name Role Phone NameRoel MD Primary Care Provider [phone] Reason for Visit * Reason Onset Date Comments Results 04/19/2024 Encounter Details Date Type Department Care Team ([facility] st Contact Info) Description 04/19/2024 Telephone [facility] MEDICINE [address] [place], [place] [phone] Name, MD Roel [address] [place] [address] Results Social History Tobacco Use Types Packs/Day [...] Description 07/17/2025 3:15 PM EDT Office Visit [facility] MEDICINE [address] [place] [phone] Name, MD Roel [address] [place] [address] 12/27/2025 8:45 AM EDT Office Visit [facility] ADULT DENTAL [address] [place], [place] [phone] Jesse Alejandrearis [address] [place], [place] [phone] documented as of this encounter Visit Diagnoses Not on filedocumented in this encounter Additional Health Concerns Assessment Noted Time PHQ-9 Depression Total Score: 0 12/31/19 24 10:54 AM EDT documented as of this encounter Care Teams Family Mediator Relationship Specialty Start Date End Date Name, MD Roel [address] [place] [address] PCP - General Family Medicine 10/04/17 documented as of this encounter
--- OUTSIDE RECORDS SUMMARY | 2025-07-04 12:13 | XMS_ITS | Encounter Summary ---
Author Organization [employer] Address [address] [facility] 7t [place] [address] Care Team Providers Care Crop Picker Name Role Phone Name, Roel ORTEGA Primary Care Provider [phone] Reason for Visit * Reason Comments Med Refill Encounter Details Date Type Department Care Team ([facility] st Contact Info) Description 05/12/2025 Refill [facility] MEDICINE [address] [place], [place] [phone] Hellen Porter, ANP [address] [place], [place] [phone] Mild persistent asthma without complication Social History Tobacco Use Types Packs/Day Years [...] the past 12 months, has t he [employer], gas, oil or water [employer] threatened to shut off services in your [...] Description 07/17/2025 3:15 PM EDT Office Visit [facility] MEDICINE [address] [place] [address] Roel Rock MD [address] [place] [address] 12/27/2025 8:45 AM EDT Office Visit [facility] ADULT DENTAL [address] [place] [address] Kathleen Alejandre [address] [place] [address] documented as of this encounter Visit Diagnoses Diagnosis Mild persistent asthma without complication documented in this encounter Additional Health Concerns Assessment Noted Time PHQ-9 Depression Total Score: 9 03/05/20 25 2:25 PM EDT documented as of this encounter Care Teams Crop Picker Relationship Specialty Start Date End Date Roel Rock MD [address] [place] [address] PCP - General Family Medicine 10/04/17 documented as of this encounter
--- OUTSIDE RECORDS SUMMARY | 2025-07-04 12:13 | XMS_ITS | Encounter Summary ---
Author Organization [employer] [facility] Address [address] [place] [address] 7t [place] [address] Care Team Providers Care Facility Engineer Name Role Phone Name, Roel ORTEGA Primary Care Provider [phone] Encounter Details Date Type Department Care Team (Late st Contact Info) Description 12/18/2022 Abstract [facility] ADULT DENTAL [address] [place] [address] Najma Interiano, DDS [address] [place] [address] Social History Tobacco Use Types Packs/Day Years [...] Description 07/17/2025 3:15 PM EDT Office Visit [facility] MEDICINE [address] [place] [address] Name, MD Roel [address] [place] [address] 12/27/2025 8:45 AM EDT Office Visit [facility] ADULT DENTAL [address] [place] [address] Kathleen Alejandre [address] [place] [address] documented as of this encounter Visit Diagnoses Not on filedocumented in this encounter Additional Health Concerns Assessment Noted Time PHQ-9 Depression Total Score: 0 11/03/19 8:54 AM EST documented as of this encounter Care Teams Facility Engineer Relationship Specialty Start Date End Date Name, MD Roel [address] [place] [address] PCP - General Family Medicine 10/04/17 documented as of this encounter
--- OUTSIDE RECORDS SUMMARY | 2025-07-04 12:13 | XMS_ITS | Encounter Summary ---
Demographics Address [address] [place] [address] [address] [place] [address] Work Phone Home Phone Mobile Phone Preferred Language es Marital Status Single Anabaptist Affiliation Unknown Race Other Race Ethnic Group Unknown Author Organization [employer] Address [address] [facility] 7t [place] [address] Care Team Providers Care Assistant Property Manager Name Role Phone Name, Roel ORTEGA Primary Care Provider [phone] Encounter Details Date Type Department Care Team (Late st Contact Info) Description 07/04/2025 Orders Only [facility] External Provider, [facility] Social History Tobacco Use Types Packs/Day Years [...] your housing situation today? I have richard sing 12/31/[address] you li [...] Description 07/17/2025 3:15 PM EDT Office Visit [facility] MEDICINE [address] [place] [address] Name, MD Roel [address] [place] [address] 12/27/2025 8:45 AM EDT Office Visit [facility] ADULT DENTAL [address] [place] [address] PiliJesseKathleen [address] [place] [address] documented as of this encounter Procedures Procedure Name Priority Date/Time Associated Diagnosis Comments US ABDOMEN COMPLETE Routine 07/04/2025 1 0:36 AM EDT documented in this encounter Results * US Abdomen Complete (07/04/2025 10:36 AM EDT) Anatomical Region Laterality Modality Abdomen Ultrasound 07/04/2025 10:3 6 AM EDT Narrative 07/04/2025 11:31 AM EDT [address] [address] Ultrasound Report Signed Patient: Lolly Mcginnis MR#: [id number] : 1965 Acct:[id number] Age/Sex: 60 / F ADM Date: 07/04/25 Loc: HO.US Attending Dr: Selena WHITE Ordering Physician: Selena Giang Date of Service: 07/04/25 Procedure(s): US abdomen complete Accession Number(s): [id number] cc: Selena Giang; Name,Roel ORTEGA Reason for Exam: R10.13 - Epigastric pain EXAMINATION: US ABDOMEN COMPLETE CLINICAL INFORMATION: R10.13. Epigastric pain.. COMPARISON: December 18, 2019. Correlated to CT abdomen and pelvis dated April 24, 2024. TECHNIQUE: Real-time ultrasound of the abdomen using grayscale technique. FINDINGS: PANCREAS: No peripancreatic fluid collections or gross 8 pancreatic ductal dilatation. ABDOMINAL AORTA: The proximal, mid, and distal segments are normal in caliber. INFERIOR VENA CAVA: Visualized portions are normal. LIVER: Liver measures 14 cm. No nodular surface. Coarse echotexture. No gross solid or cystic lesion. No intrahepatic biliary ductal dilatation. GALLBLADDER: Cholecystectomy. COMMON BILE DUCT 3 mm. RIGHT KIDNEY: 11 cm. Normal echotexture. Normal renal cortical thickness. No hydronephrosis. No gross solid or cystic lesion. LEFT KIDNEY: 11 cm. Normal echotexture. Normal renal cortical thickness. No hydronephrosis. No gross solid or cystic lesion. SPLEEN: 10 cm. No gross lesion.. FREE FLUID: None. US/US abdomen complete IMPRESSION: No intrahepatic or extrahepatic biliary ductal dilatation. Probable hepatic steatosis versus less likely, hepatocellular disease. No ascites. No hydronephrosis. Electronically signed by: Stephen Green MD 07/04/2025 11:28 AM EDT Dictated By: Stephen Be MD Signed By: <Electronically signed by Stephen Moya MD in OV> 07/04/25 1128 DD/ 1036 TD/TT: 07/04/25 1053 Sustainable Design Consultant: Procedure Note Donotuseinterpreter, Image - 07/04/[address] [address] Ultrasound Report Signed Patient: Lolly Mcginnis [facility]#: [id number] : 1965Acct:[id number] Age/Sex: 60 / FADM Date: 07/04/25 Loc: HO.US Attending Dr: Selena WHITE Ordering Physician: Selena Giang Date of Service: 07/04/25 Procedure(s): US abdomen complete Accession Number(s): [id number] cc: Selena Giang; Name,Roel ORTEGA Reason for Exam: R10.13 - Epigastric pain EXAMINATION: US ABDOMEN COMPLETE CLINICAL INFORMATION: R10.13. Epigastric pain.. COMPARISON: December 18, 2019. Correlated to CT abdomen and pelvis dated April 24, 2024. TECHNIQUE: Real-time ultrasound of the abdomen using grayscale technique. FINDINGS: PANCREAS: No peripancreatic fluid collections or gross 8 pancreatic ductal dilatation. ABDOMINAL AORTA: The proximal, mid, and distal segments are normal in caliber. INFERIOR VENA CAVA: Visualized portions are normal. LIVER: Liver measures 14 cm. No nodular surface. Coarse echotexture. No gross solid or cystic lesion. No intrahepatic biliary ductal dilatation. GALLBLADDER: Cholecystectomy. COMMON BILE DUCT 3 mm. RIGHT KIDNEY: 11 cm. Normal echotexture. Normal renal cortical thickness. No hydronephrosis. No gross solid or cystic lesion. LEFT KIDNEY: 11 cm. Normal echotexture. Normal renal cortical thickness. No hydronephrosis. No gross solid or cystic lesion. SPLEEN: 10 cm. No gross lesion.. FREE FLUID: None. US/US abdomen complete IMPRESSION: No intrahepatic or extrahepatic biliary ductal dilatation. Probable hepatic steatosis versus less likely, hepatocellular disease. No ascites. No hydronephrosis. Electronically signed by: Stephen Green MD 07/04/2025 11:28 AM EDT Dictated By: Stephen Be MD Signed By: <Electronically signed by Stephen Moya MDin OV> 07/04/25 1128 DD/ 1036 TD/TT: 07/04/25 1053 Sustainable Design Consultant: [facility] External Provider IMG US PROCEDURES Edited Result - Final documented in this encounter Visit Diagnoses Not on filedocumented in this encounter Additional Health Concerns Assessment Noted Time PHQ-9 Depression Total Score: 9 03/05/20 25 2:25 PM EDT documented as of this encounter Care Teams Assistant Property Manager Relationship Specialty Start Date End Date Name, MD Roel [address] [place] [address] PCP - General Family Medicine 10/04/17 documented as of this encounter
--- OUTSIDE RECORDS SUMMARY | 2025-07-04 12:13 | XMS_ITS | Encounter Summary ---
Author Organization [employer] Address [address] [facility] 7t [place] [address] Care Team Providers Care Civilian Jail Officer Name Role Phone Name, Roel ORTEGA Primary Care Provider [phone] Encounter Details Date Type Department Care Team ([facility] st Contact Info) Description 07/06/2023 Telephone [facility] MEDICINE [address] [place], [place] [phone] Name, MD Roel [address] [place] [address] Social History Tobacco Use Types Packs/Day Years [...] letter to schedule f/u appointment with coleen. Offset Press Operator Helper does not see any documentation on letter or recall. Please contact pt at [phone] (French) documented in this encounter Plan of Treatment Upcoming Encounters Date Type Department Care Team (Late st Contact Info) Description 07/17/2025 3:15 PM EDT Office Visit [facility] MEDICINE [address] [place] [address] Roel Rock MD [address] [place] [address] 12/27/2025 8:45 AM EDT Office Visit [facility] ADULT DENTAL [address] [place] [address] Kathleen Alejandre [address] [place] [address] documented as of this encounter Visit Diagnoses Not on filedocumented in this encounter Additional Health Concerns Assessment Noted Time PHQ-9 Depression Total Score: 0 11/03/19 23 8:54 AM EST documented as of this encounter Care Teams Civilian Jail Officer Relationship Specialty Start Date End Date NameRoel MD [address] [place] [address] PCP - General Family Medicine 10/04/17 documented as of this encounter
--- OUTSIDE RECORDS SUMMARY | 2025-07-04 12:13 | XMS_ITS | Encounter Summary ---
Author Organization [facility] Address [address] [place] [address] 7t [place] [address] Care Team Providers Care Cutter Aluminum Sheet Name Role Phone NameRoel MD Primary Care Provider [phone] Encounter Details Date Type Department Care Team (Latest Contact Info) Description 12/20/2020 Abstract [facility] CONVERSIONS Dental, Provider, DDS Social History [...] 07/17/2025 3:15 PM EDT Office Visit [facility] MEDICINE [address] [place] [address] NameRoel MD [address] [place] [address] 12/27/2025 8:45 AM EDT Office Visit [facility] ADULT DENTAL [address] [place] [address] PiliJesseKathleen [address] [place] [address] documented as of this encounter Visit Diagnoses Not on filedocumented in this encounter Care Teams Cutter Aluminum Sheet Relationship Specialty Start Date End Date NameRoel MD [address] [place] [address] PCP - General Family Medicine 10/04/17 documented as of this encounter
--- OUTSIDE RECORDS SUMMARY | 2025-07-04 12:13 | XMS_ITS | Clinical Summary ---
Demographics Address [address] [place] [address] [address] [place] [address] Work Phone Home Phone Mobile Phone Preferred Language es Marital Status Single Church Affiliation Unknown Race Other Race Ethnic Group Unknown Author Organization [employer] Address [address] [facility] [address] [place] [address] Care Team Providers Care Record Clerk Salesperson Name Role Phone Name, Roel ORTEGA Primary Care Provider [phone] Allergies Active Allergy Reactions Criticality Noted Date Comments Metformin Low 08/11/2021 Other reaction(s): GI Problems Other reaction(s): gi uposet Other Reaction(s): stomach upset confirmed Medications Calcium Polycarbophil (fiber) 625 MG tablet Take 2 tablets by mouth at bed time. Active Diclofenac Sodium 1 % gel Apply topically every 12 (twelve) hours. Active empagliflozin (Jardiance) 25 MG Take 1 tablet by mouth at bed time. Active glucose blood (FREESTYLE LITE) test strip 1 strip every 8 (eight) hours. Active hydrocortisone 1 % cream Active hydroxychloroquin e (Plaquenil) 200 MG tablet Take 1 tablet by mouth at bed time. Active insulin lispro (HumaLOG) 100 UNIT/ML injection Ac tive omeprazole (PriLOSEC) [address] capsule Take [...] Needle Sandy U/F 32G X 4 MM [facility] Active gabapentin (Neurontin) 300 MG capsule Take [...] ype 2 diabetes mellitus with diabetic 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 ([facility]/HCC) TEST BLOOD SUGAR FOUR TIMES DAILY 100 each 6 Active famotidine (Pepcid) 20 MG tablet Active Continuous Glucose Sensor (FreeStyle Rama 2 Sensor) [facility] Active acetaminophen (Tylenol) 500 MG tablet Take 2 tablets (1,000 mg) by mouth every 6 (six) hours if needed for mild pain. 40 tablet Active albuterol (2.5 MG/3ML) 0.083% nebulizer solutionIndicatio ns:Mild persistent asthma without complication Take 3 mL (2.5 mg) by nebulization every 6 (six) hours if needed for wheezing or shortness of breath. 75 mL 1 024 2024 Active Alcohol Swabs (Alcohol Prep) 70 % pads USE THREE TIMES DAILY 100 each 11 Active fluticasone furoate (Arnuity Ellipta) 100 MCG/ACT inhaler Inhale 1 puff Once per day. Rinse mouth with water after use to reduce aftertaste and incidence of candidiasis. Do not swallow. 1 each 2025 Active fluticasone (Flonase) 50 MCG/ACT nasal spray Administer 2 sprays into each nostril Once per day. Shake gently. Before first use, prime pump. After use, clean tip and replace cap. 48 g 1 Active Additional Information Patient not taking.Reported on 04/09/2025 Trulicity 3 MG/0.5ML solution auto-injector Active Toujeo Max SoloStar 300 UNIT/ML injection Ac tive Myrbetriq 50 MG 24 hr tablet Take 50 mg by mouth in the morning. Active amLODIPine (Norvasc) 5 MG tabletIndications :Essential hypertension TAKE 1 TABLET BY MOUTH EVERY MORNING 90 tablet 1 Active hydroCHLOROthiazi de 12.5 MG tabletIndications :Essential hypertension TAKE 1 TABLET BY MOUTH EVERY MORNING 90 tablet 1 Active insulin aspart FlexPen (NovoLOG) 100 UNIT/ML [...] BY MOUTH AT BEDTIME 90 tablet 3 Active Aspirin Low Dose 81 MG EC tablet TAKE 1 TABLET BY MOUTH EVERY MORNING 90 tablet 3 025 Active enalapril (Vasotec) 20 MG tabletIndications :Essential hypertension TAKE 1 TABLET BY MOUTH AT BEDTIME 90 tablet 3 025 Active D3-1000 25 MCG (1000 UT) capsuleIndication s: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) TAKE 2 CAPSULES BY MOUTH ONCE DAILY IN THE MORNING 180 capsule 3 025 Active Ventolin HFA 108 (90 Base) MCG/ACT inhaler INHALE 2 PUFFS BY MOUTH EVERY 6 HOURS NEEDED FOR WHEEZING 18 g 2 025 Active levothyroxine (Synthroid, Levoxyl) 88 MCG tabletIndications :Papillary thyroid carcinoma (CMS/HCC) TAKE 1 TABLET BY MOUTH EVERY MORNING 90 tablet 1 025 Active ondansetron (Zofran) 4 MG tabletIndications :Vomiting in adult Take 1 tablet (4 mg) by mouth every 8 (eight) hours if needed for nausea or vomiting for up to 10 doses. 10 tablet 025 Active metFORMIN (Glucophage) 500 MG tablet TAKE 1/2 TABLET BY MOUTH EVERY MORNING WITH FOOD 45 tablet 1 025 Active metFORMIN (Glucophage) 500 MG tablet TAKE 1/2 TABLET BY MOUTH EVERY MORNING WITH FOOD 45 tablet 1 025 2024 Discontinued Active Problems Problem Noted Date Diagnosed Date Excessive attrition of teeth 06/27/2025 Vomiting in adult 05/07/2025 Assessment & Plan (05/07/2025 11:31 AM EDT): Most likely sp viral GI illness, covid test is NEG today, reassurance. Advise re PO fluids only x 1 d, take tums AC PO and Zofran prn n/v Advance fluid to BRAT diet as tolerated Re consult pn if sxs do not improve within 3d Cervical radiculopathy 04/09/2025 Impingement syndrome of left shoulder 04/09/2025 Left shoulder pain 04/09/2025 Esophageal spasm 04/09/2025 Hypothyroid 04/09/2025 Hordeolum externum of right upper eyelid 024 [...] <100 04/11/2024 IBS (irritable bowel syndrome) 04/11/2024 residential (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 of insulin 04/11/2024 Mass of [...] diabetic retinopathy 01/17/2019 Overview (02/09/2024): Follows at [facility] Diabetic 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 11/17/2017 Hypertension 10/04/2017 Diabetes mellitus 10/04/2017 Resolved Problems Problem Noted Date Diagnosed Date Resolved Date Diabetic neuropathy 09/22/2023 09/22/2023 12/24/19 Extrinsic asthma without complication 02/19/2023 12/24/2023 Thyroid nodule 09/15/2022 02/19/2023 Encounters Date Type Department Care Team Description 07/04/2025 Orders Only [facility] External Provider, [facility] 06/27/2025 10:00 AM EDT Office Visit [facility] ADULT DENTAL [address] [place] [address] Kathleen Alejandre Excessive attrition of teeth (Primary Dx); Gingival recession, localized; Dental plaque; Missing teeth, acquired 06/12/2025 Refill [facility] MEDICINE [address] [place] [phone] Roel Rock MD 05/12/2025 Refill [facility] [address] [place] [phone] Hellen Porter ANP Mild persistent asthma without complication 05/07/2025 10:40 AM EDT Office Visit [facility] [address] [place] [phone] Bonnie Payne MD Vomiting in adult (Primary Dx) 05/07/2025 Travel 05/03/2025 Refill [facility] [address] [place] [address] Roel Rock MD Papillary thyroid carcinoma ([facility]) 04/10/2025 2:30 PM EDT Office Visit [facility] ADULT [facility] [address] [place] [address] Brennan-Chung, Najma, DDS Fracture of removable partial denture (Primary Dx) 04/09/2025 10:00 AM EDT Office Visit [facility] [address] [place] [address] Brennan-Chung, Najma, DDS Fracture of removable partial denture (Primary Dx) 04/08/2025 Refill [facility] [address] [place] [phone] Roel Rock MD 04/06/2025 Telephone [facility] [address] [place] [phone] Cathy Caraballo [place] june recalls from Last 3 Months Immunizations Immunization Administration [...] Sign Reading Time Taken Comments Blood Pressure 130/72 06/27/2025 10:42 AM EDT Pulse 97 05/07/2025 10:14 AM EDT Temperature 37.3 C (99.1 F) 05/07/2025 10:14 AM EDT Respiratory Rate 17 05/07/2025 10:14 AM EDT Oxygen Saturation 99% 05/07/2025 10:14 AM EDT Inhaled Oxygen Concentration - - Weight 63.6 kg (140 lb 3.2 oz) 05/07/2025 10:14 AM EDT Height 157.5 cm (5' 2 ) 05/07/2025 10:14 AM EDT Body Mass Index 25.64 05/07/2025 10:14 AM EDT Plan of Treatment Upcoming Encounters Date Type Department Care Team (Late st Contact Info) Description 07/17/2025 3:15 PM EDT Office Visit [facility] [address] [place] [phone] Name, MD Roel [address] [place] [address] 12/27/2025 8:45 AM EDT Office Visit [facility] [address] [place] [address] Kathleen Alejandre [address] [place] [address] Health Maintenance Due Date Last Done Comments CT Colonography 1965 FIT DNA/Cologuard 1965 FIT 1965 FOBT 1965 HIV Screening 1965 Sigmoidoscopy 1965 Alcohol/Substance Use Screening 1976 Colonoscopy 11/14/2023 11/14/2018 Colorectal Cancer Screening 11/14/2023 Diabetes: Urine Protein Screening 02/27/2024 02/26/2023, 01/01/2022, 11/27/2021, Additional history exists RSV Patients and Patients Aged 60 years or older (1 - Risk 60-74 years 1-dose series) 2024 Diabetes: Foot Exam 12/30/2024 12/31/2023, 12/31/2023, 12/31/2023, Additional history exists SDOH Screening 04/03/2025 04/03/2024 Influenza Vaccine (#1) 2025 , 06/17/2023, 07/08/2022, Additional history exists Depression Monitoring 09/05/2025 03/05/2025, 025 Diabetes: Hemoglobin A1C 09/21/2025 025, 11/30/2024, 07/07/2024, Additional history exists Eye Exam 12/14/2025 12/14/2024, 11/19, 12/14/2024, Additional history exists Dental Oral Exam 12/26/2025 06/27/2025, 09/2024, 07/17/2022 Dental Prophylaxis 12/26/2025 06/27/2025, 0 03/30/2024, 02/04/2023 Disability Screening 03/05/2026 03/05/2025 Lipid Panel 03/30/2026 03/30/2025, 0511/2022, 07/23/2022, Additional history exists Tobacco Screening 06/27/2026 06/27/2025 Dental X-Ray: Bitewings 06/28/2026 06/27/20 25, 03/30/2024, 12/16/2020 Mammogram 03/29/2027 03/29/2025, 06/0 03/2024, 03/16/2023, Additional history exists Dental X-Ray: Full Mouth 03/31/2027 03/30/2024, 10/18 DTaP/Tdap/Td Vaccines (2 - Td or Tdap) 10/04/2027 10/04/2017 Cervical Cancer Screening 01/14/2028 HPV/Cotest 01/14/2028 01/13/2023, 11/30/2019 Pap Smear 01/14/2028 01/13/2023 Zoster Vaccines Completed 03/17/2022, 01/05/2022 Pneumococcal Vaccine: 50+ Years Completed 09/22/2023, 11/17/2017 Hepatitis C Screening Completed 04/17/2024 COVID-19 Vaccine Completed 07/07/2024, 12/2022, 11/04/2022, Additional [...] COMPLETE Routine 07/04/2025 1 0:36 AM EDT PERIODIC ORAL EVALUATION - ESTABLISHED PATIENT Routine 06/27/2025 10:00 AM EDT BITEWINGS - 4 RADIOGRAPHIC IMAGES Routine 06/27/2025 10:00 AM EDT Excessive attrition of teeth Gingival recession, localized Dental plaque Missing teeth, acquired 24,25 INTRAORAL - PERIAPICAL EACH ADDITIONAL RADIOGRAPHIC IMAGE Routine 06/27/2025 10:00 AM EDT Excessive attrition of teeth Gingival recession, localized Dental plaque Missing teeth, acquired 8,9 INTRAORAL - PERIAPICAL FIRST RADIOGRAPHIC IMAGE Routine 06/27/2025 10:00 AM EDT Excessive attrition of teeth Gingival recession, localized Dental plaque Missing teeth, acquired PROPHYLAXIS - ADULT Routine 06/27/2025 1 0:00 AM EDT Dental plaque 21 INTRAORAL - PERIAPICAL EACH ADDITIONAL RADIOGRAPHIC IMAGE Routine 06/27/2025 10:00 AM EDT Excessive attrition of teeth Gingival recession, localized Dental plaque Missing teeth, acquired ORAL HYGIENE INSTRUCTIONS Routine 06/27/2025 10:00 AM EDT Excessive attrition of teeth Gingival recession, localized Dental plaque CASE PRESENTATION, DETAILED AND EXTENSIVE TREATMENT PLANNING Routine 06/27/2025 10:00 AM EDT Excessive attrition of teeth Gingival recession, localized Dental plaque Missing teeth, acquired POCT COVID-19 AG CABRAL ID NOW Routine 05/07/2025 10:49 AM EDT Vomiting in adult DENTURE ADJUSTMENT Routine 04/10/2025 2: 30 PM EDT Fracture of removable partial denture CASE PRESENTATION, DETAILED AND EXTENSIVE TREATMENT PLANNING Routine 04/10/2025 2:30 PM EDT Fracture of removable partial denture 6 ADD TOOTH TO EXISTING PARTIAL DENTURE Routine 04/10/2025 2:30 PM EDT Fracture of removable partial denture CASE PRESENTATION, DETAILED AND EXTENSIVE TREATMENT PLANNING Routine 04/09/2025 10:00 AM EDT Fracture of removable partial denture LIMITED ORAL EVALUATION - PROBLEM FOCUSED Routine 04/09/2025 10:00 AM EDT Fracture of removable partial denture LIPID PANEL, STANDARD Routine 03/30/2025 8:51 AM EDT Type 2 diabetes mellitus with other specified complication, with long-term current use of insulin (CMS/HCC) BI MAMMOGRAM SCREENING TOMOSYNTHESIS BILATERAL Routine 03/29/2025 2:44 PM EDT HEMOGLOBIN A1C Routine 03/22/2025 1:26 PM EDT HEPATITIS C AB W/REFL TO HCV RNA, QN, PCR Routine 04/17/2024 11:32 AM EDT Need for hepatitis C screening test INTRAORAL - COMPLETE SERIES OF RADIOGRAPHIC IMAGES Routine 03/30/2024 1:00 PM EDT Dental plaque Missing teeth, acquired Gingival recession, localized ALBUMIN, RANDOM URINE W/CREATININE Routine 02/26/2023 8:39 AM EDT Type 2 diabetes mellitus with other specified complication, with long-term current use of insulin (CMS/HCC) Hypertension, unspecified type IMAGE-GUIDED PAP W/AGE BASED SCR PROTOCOLS Routine 01/13/2023 11:48 AM EDT Cervical cancer screening HM COLONOSCOPY Routine 11/14/2018 4:17 PM EST from Last 3 Months or Most Recently Relevant to Health Maintenance Results * US Abdomen Complete (07/04/2025 10:36 AM EDT) Anatomical Region Laterality Modality Abdomen Ultrasound 07/04/2025 10:3 6 AM EDT Narrative 07/04/2025 11:31 AM EDT [place] [address] Ultrasound Report Signed Patient: Lolly Mcginnis MR#: [id number] : 1965 Acct:[id number] Age/Sex: 60 / F ADM Date: 07/04/25 Loc: HO.US Attending Dr: Selena WHITE Ordering Physician: Selena Giang Date of Service: 07/04/25 Procedure(s): US abdomen complete Accession Number(s): [id number] cc: Selena Giang; Name,Roel ORTEGA Reason for [...] Stephen Green MD 07/04/2025 11:28 AM EDT RP Dictated By: Stephen Be MD Signed By: <Electronically signed by Stephen Moay MD in OV> 07/04/25 1128 DD/ 1036 TD/TT: 07/04/25 1053 Transition Assistant: Procedure Note Donotuseinterpreter, Image - 07/04/2025 [place] [address] Ultrasound Report Signed Patient: Lolly Mcginnis [facility]#: M [id number] : 1965Acct:[id number] Age/Sex: 60 / FADM Date: 07/04/25 Loc: HO.US Attending Dr: Selena WHITE Ordering Physician: Selena Giang Date of Service: 07/04/25 Procedure(s): US abdomen complete Accession Number(s): [id number] cc: Selena Giang; Name,Roel ORTEGA Reason for [...] Stephen Green MD 07/04/2025 11:28 AM EDT RP Dictated By: Stephen Be MD Signed By: <Electronically signed by Stephen Moya MDin OV> 07/04/25 1128 DD/ 1036 TD/TT: 07/04/25 1053 Transition Assistant: [facility] External Provider IMG US PROCEDURES Edited Result - Final * POCT COVID-19 Ag Cabral ID NOW (05/07/2025 10:49 AM EDT) Pathologist [facility] Coronavirus Antigen PCR Negative Negative, Indeterminate, None Detected, Invalid, Specimen unsatisfactory for evaluation, Weakly Positive, 2+ Swab 05/07/2025 10:4 9 AM EDT Bonnie Payne MD POINT OF CARE TEST ENTER /EDIT ORDERABLES Final Result * Lipid Panel, Standard (03/30/2025 8:51 AM EDT) Triglycerides 58 <150 mg/dL [facility] Comment:Desirable Triglyceri de: less than 150 mg/dLBorderline High Triglyceride 150-199 mg/dLHigh Triglyceride: 200-499 mg/dLVery High Triglyceride: greater than or equal to 5OO mg/dL Cholesterol 167 <200 mg/dL [facility] Comment:Desirable Cholestero l: less than 200 mg/dLBorderline High Cholesterol: 200-239 mg/dLHigh Cholesterol: greater than 239 mg/dL LDL Cholesterol Calculated 91 <100 mg/dL [facility] Comment:Desirable LDL: less than 100 mg/dLNear Optimal/Above Optimal LDL: 110- 129 mg/dLBorderline High LDL: 130-159 mg/dLHigh LDL: 160-189 mg/dLVery High LDL: greater than or equal to 190 mg/dL HDL Cholesterol 65 >40 mg/dL [facility] Comment:Desirable HDL: great er than 40 mg/dL Note: This HDL assay may give artificially low results in patients with liver disease. Blood Venous blood specimen / Unknown 03/30/2025 8:51 AM EDT 03/30/2025 11:04 AM EDT Roel Rock MD LAB BLOOD ORDERABLES Final Resul t Performing Organization Address City/State/[facility] Co de Phone Number [facility] [address] [place] [phone] * BI Mammogram Screening Tomosynthesis Bilateral (03/29/2025 2:44 PM EDT) Anatomical Region Laterality Modality Breast Bilateral Mammography 03/29/2025 2:44 PM EDT Narrative 04/07/2025 10:52 AM EDT [address] [place] [address] Mammography Report Signed Patient: Lolly Mcginnis MR#: M [id number] : 1965 Acct:[id number] Age/Sex: 60 / F ADM Date: 03/29/25 Loc: HO.MAMMO Attending Dr: Roel Rock MD Ordering Physician: Roel Rock MD Results: 1Negative Date of Service: 03/29/25 Follow Up: 1 Year From Orig ina Mammogram Procedure(s): MM tomosynthesis screening BI Accession Number(s): [id number] cc: Roel Rock MD EXAMINATION: MM SCREENING DIGITAL BREAST TOMOSYNTHESIS, BILATERAL CLINICAL INFORMATION: Screening. Asymptomatic. COMPARISON: Mammography: Comparison is made with available priors TECHNIQUE: Digital breast mammography with tomosynthesis is performed in both the craniocaudal and mediolateral oblique views along with computer-aided detection (CAD). FINDINGS: There are scattered areas of fibroglandular [...] target due date for their next mammogram. Electronically signed by: Agnieszka Vergara DO 04/07/2025 10:48 AM EDT RP Dictated By: Agnieszka Vergara DO Signed By: <Electronically signed by Agnieszka Vergara DO in OV> 04/07/25 1048 DD/ 1444 TD/TT: 03/29/25 1457 Transition Assistant: Procedure Note Donotuseinterpreter, Image - 04/07/2025 Ping [facility] [address] [place] [address] Mammography Report Signed Patient: Lolly Mcginnis MMR#: M [id number] : 1965Acct:[id number] Age/Sex: 60 / FADM Date: 03/29/25 Loc: PREET Attending Dr: Roel Rock MD Ordering Physician: Roel Rock MDResults: 1Negative Date of Service: 03/29/25Follow Up: 1 Year From Orig inal Mammogram Procedure(s): MM tomosynthesis screening BI Accession Number(s): [id number] cc: Roel Rock MD EXAMINATION: MM SCREENING DIGITAL BREAST TOMOSYNTHESIS, BILATERAL CLINICAL INFORMATION: Screening. Asymptomatic. COMPARISON: Mammography: Comparison is made with available priors TECHNIQUE: Digital breast mammography with tomosynthesis is performed in both the craniocaudal and mediolateral oblique views along with computer-aided detection (CAD). FINDINGS: There are scattered areas of fibroglandular [...] target due date for their next mammogram. Electronically signed by: Agnieszka Vergara DO 04/07/2025 10:48 AM EDT RP Dictated By: Agnieszka Vergara DO Signed By: <Electronically signed by Agnieszka Vergara DO in OV> 04/07/25 1048 DD/ 1444 TD/TT: 03/29/25 1457 Transition Assistant: Roel LEE BI PROCEDURES Edited Result - Final * (ABNORMAL) Hemoglobin A1c (03/22/2025 1:26 PM EDT) Hemoglobin A1c 6.6(H) <6.0 % [facility] Comment:Hemoglobin A1C Refer ence Range Adults: 4.8 - 6.0 % Non diabetic: < 6.0 % Goal: < 7.0 %Additional Action Suggested: > 8.0 %Note: Hemoglobin A1c results are invalid for patients with abnormal amounts of HbF. Blood transfusions may impact the HbA1c concentration in the patient sample. Estimated Average Glucose 143 mg/dL [facility] Comment:eAG = Estimated ave rage glucose which is %A1C expressed asaverage glucose, using the formula of the V8K-OtvxuwtHykjhhm Glucose study (ADAG), Diabetes Care, Vol.31,#8,May. 2007 03/22/2025 1:26 PM EDT 03/22/2025 1:26 PM EDT us Generic External Data Provider LAB BLOOD ORDERAB LES Final Result [facility] [address] [place] [phone] * Hepatitis C Antibody with Reflex to HCV, RNA, Quantitative, Real-Time PCR (04/17/2024 11:32 AM EDT) Hepatitis C Antibody Nonreactive Nonreactive [facility] Comment:Antibodies to HCV no t detected; does not exclude early acuteHCV infection. Blood Venous blood specimen / Unknown 04/17/2024 11:32 AM EDT 04/17/2024 1:13 PM EDT us Roel Rock MD LAB BLOOD ORDERABLES Final Resul t Performing Organization Address [facility] Co de Phone Number [facility] [address] [place] [phone] * Albumin, Random Urine W/Creatinine (02/26/2023 8:39 AM EDT) Creatinine, Random Urine 142 20 - 275 mg/dL [employer] [place] [employer] [place] Albumin, Urine 1.9 See Note: mg/dL [employer] [place] [employer] Comment: Reference Range: Reference Range Not established Albumin/Creatinin e Ratio, Random Urine 13 <30 mcg/mg creat [employer] [place] [employer] [place] Comment: The ADA defines abnormalities in albumin excretion as follows: Albuminuria Category Result (mcg/mg creatinine) Normal to Mildly increased <30 Moderately increased 30-299 Severely increased > OR = 300 The ADA recommends that at least two of three specimens collected within a 3-6 month period be abnormal before considering a patient to be within a diagnostic category. 02/26/2023 8:39 AM EDT 02/26/2023 8:40 AM EDT Narrative [facility] - 02/26/2023 10:35 PM EDT FASTING:YES FASTING: YES us Roel Rock MD LAB URINE ORDERABLES Final Resul t Performing Organization Address City/[facility] Hospital/ZIP Co de Phone Number [facility] [address], [place] [address] [employer] [place] [employer] [place] [address] [place] [phone] * Image-Guided Pap with Age-Based Screening Protocols (01/13/2023 11:48 AM EDT) Comment [employer] Comment: This order for age-based cervical cancer and STI screening follows ACOG guidelines(PB 168, 140, FWR530). See individual assays for performing site location. Clinical Information: None given [employer] [facility] LMP: NONE GIVEN Dianxin-VoteItt Prev. PAP: NONE GIVEN Dianxin-Xamplified Diagnost Prev. BX: NONE GIVEN [facility]ian[employer] Diagnost SOURCE: None given [employer] Statement Of Adequacy: SATISFACTORY FOR EVALUATION [employer] Interpretation/Re sult: [employer] Comment: Negative for intraepithelial lesion or malignancy. Atrophic pattern; predominantly parabasal cells COMMENT: This Pap test has been evaluated with computer assisted technology. [employer] National Sales Representative: Arie Zapointt Comment: SXA, CT(ASCP) CT screening location: [address] [address] (Always Message) [facility] [employer] Comment: EXPLANATORY NOTE: The Pap is [...] HPV nRNA E6/E7 Not Detected Not Detected [employer] Comment: Methodology: Hand Trimmer-Mediated Amplification This assay detects E6/E7 viral messenger RNA (mRNA) from 14 high-risk HPV types (16,18,31,33,35,39,45,51,52,56,58,59,66,68). Cervical sources are required for HPV testing. If a vaginal source from a patient who has had a total hysterectomy with removal of cervix was submitted, please contact the testing laboratory for alternative testing options. For additional information, please refer to http://education.HealOr/faq/IPW796w3 (This link if provided for information/ educational purposes only.) Cytology specimen container (physical object) 01/13/2023 11:48 AM EDT 01/14/2023 2:03 AM EDT Erica Joseph CNM LAB BLOOD ORDERABLES Janis kaba Result [facility] [address], [place] [phone] [facility] [address] [place] [address] * Hm Colonoscopy (11/14/2018 4:17 PM EST) Colonoscopy Normal Normal Narrative Ami Giraldo - 11/14/2018 4:17 PM EST Recommended 5 year follow up Historical Provider MD HEALTH MAINTENANCE Final Result from Last 3 Months or Most Recently Relevant to Health Maintenance Insurance * Guarantor: Lolly Mcginnis Account Type Relation to Patient Date of Phone Billing Address Personal/Family Self 1965 [address] [place] [address] [facility] ST[facility] ADULT [address] [place] [address] Care Teams Record Clerk Salesperson Relationship Specialty Start Date End Date Name, MD Roel [address] [place] [phone] PCP - General Family Medicine 10/04/17
--- OUTSIDE RECORDS SUMMARY | 2025-07-04 12:13 | XMS_ITS | Encounter Summary ---
Author Organization [employer] Address [address] [facility] 7t [place] [address] Care Team Providers Care Outsole Tacker Name Role Phone NameRoel MD Primary Care Provider [phone] Reason for Visit * Reason Onset Date Comments Appointment Request 12/09/2023 Encounter Details Date Type Department Care Team ([facility] st Contact Info) Description 12/09/2023 Telephone [facility] MEDICINE [address], [place] [id number] Name, MD Roel [address] [place] [address] Appointment Request Social History Tobacco Use Types [...] Description 07/17/2025 3:15 PM EDT Office Visit [facility] MEDICINE [address] [place] [address] Name, MD Roel [address] [place] [address] 12/27/2025 8:45 AM EDT Office Visit [facility] ADULT DENTAL [address] [place] [address] Pili, Kathleen [address] [place] [address] documented as of this encounter Visit Diagnoses Not on filedocumented in this encounter Additional Health Concerns Assessment Noted Time PHQ-9 Depression Total Score: 0 11/03/19 23 8:54 AM EST documented as of this encounter Care Teams Outsole Tacker Relationship Specialty Start Date End Date NameRoel MD [address] [place] [phone] PCP - General Family Medicine 10/04/17 documented as of this encounter
--- OUTSIDE RECORDS SUMMARY | 2025-07-04 12:13 | XMS_ITS | Encounter Summary ---
Author Organization [facility] Address [address] [facility] 7t [place] [address] Care Team Providers Care Community Relations Representative Name Role Phone Name, Roel ORTEGA Primary Care Provider [phone] Encounter Details Date Type Department Care Team (Late st Contact Info) Description 03/18/2023 Abstract [facility] MEDICINE [address] [place] [id number] Name, MD Roel [address] [place] [id number] Social History Tobacco Use Types Packs/Day Years [...] Description 07/17/2025 3:15 PM EDT Office Visit [facility] MEDICINE [address] [place] [phone] Name, MD Roel [address] [facility] [place] [address] 12/27/2025 8:45 AM EDT Office Visit [facility] ADULT DENTAL [address] [facility] [place] [address] Kathleen Alejandre [address] [place] [address] documented as of this encounter Procedures Procedure [...] as of this encounter Care Teams Community Relations Representative Relationship Specialty Start Date End Date Name, MD Roel [place] [address] PCP - General Family Medicine 10/04/17 documented as of this encounter
== END 2025-07-04 10:05 | disposition home or self-care (01) ==
LOC: HO.US 10:04
PROVIDERS: PCP Internal Medicine Geriatric Medicine; Visit Provider Nurse Practitioner
DX: R10.13 Epigastric pain (principal)
CPT/HCPCS: 76700

== ENCOUNTER → 2025-07-04 10:06 | Outpatient (BNV) | payer MEDICAID, SELFPAY | PROVIDERS: PCP Internal Medicine Geriatric Medicine; Visit Provider Radiology Diagnostic Radiology | DX: K76.89 Other specified diseases of liver (principal) | CPT/HCPCS: 76700 ==

== ENCOUNTER 2025-07-12 08:58 | Outpatient (AMB) | payer MEDICAID, SELFPAY ==
[2025-07-12 09:03] VITALS: BMI 25.4
--- NOTE | 2025-07-12 09:03 | MHC.OFFVIS ---
Vital Signs 07/12/25 09:03 Height 5 ft 2 in Weight 139 lb BMI 25.4 Intake Visit Reasons: OV- LT shoulder 01/26/25 D Intake Note: Lolly is a 60 year old [place]an Speaking female who presents with complaints of mild to moderate discomfort in her left shoulder after undergoing left shoulder arthroscopic surgery on 01/26/2025. She continues with her home stretching program. She denies any fevers or chills. She denies any weakness. She does take Tylenol as needed for her discomfort. Echo Vascular Technologist Required: Yes Echo Vascular Technologist Language: Hook Loader Name: Barrera: [id number] Allergies metformin Adverse Reaction (Mild, Verified 07/12/25 09:05) stomach upset Medication List - Last Reconciled 07/12/25 by Freedom Huggins MD acetaminophen 500 mg PO Q6H PRN albuterol sulfate 2.5 mg inhalation Q6H PRN albuterol sulfate 90 mcg/actuation 2 puffs inhalation Q4-6H PRN amlodipine 5 mg PO DAILY aspirin (Adult Low Dose Aspirin) 81 mg PO DAILY cholecalciferol (vitamin D3) (Vitamin D3) 50 mcg PO DAILY dicyclomine 20 mg PO .TIDAC 30 days docusate sodium (Stool Softener) 100 mg PO BID PRN dulaglutide (Trulicity) 3 mg (0.5 mL) subcut QWEEK empagliflozin (Jardiance) 25 mg PO QAM enalapril maleate 20 mg PO BEDTIME flash glucose sensor (FreeStyle Rama 2 Sensor kit) As directed change every 2 weeks FreeStyle Rama 2 Plus Sensor (blood-glucose sensor) every 15 days NS FreeStyle Rama 2 [place] (flash glucose scanning reader) As directed NS FreeStyle Lite Meter (blood-glucose meter) As directed NS FreeStyle Lite Strips (blood sugar diagnostic) TEST BLOOD SUGAR FOUR TIMES DAILY NS gabapentin 300 mg PO BEDTIME hydrochlorothiazide 12.5 mg PO DAILY hydroxychloroquine 200 mg PO BID ibuprofen 600 mg PO Q8H PRN insulin aspart U-100 4 units small meals, 8 medium meals and 10 units large meals, + 2 units for bg over 200 subcut 3 times a day; subcut 3 times a day; 30 days insulin glargine U-300 conc (Toujeo Max U-300 SoloStar) 36 units (0.12 mL) subcut BEDTIME levothyroxine 88 mcg PO DAILY 90 days metformin 1/2 tablet PO daily; metoclopramide HCl (Reglan) 10 mg PO QIDACHS montelukast 10 mg PO BEDTIME omeprazole 40 mg PO BID 30 days ondansetron 4 mg PO Q6-8H PRN oxycodone 5 mg PO Q4H PRN pen needle, diabetic (Pentips Pen Needle) USE DIRECTED FOUR TIMES DAILY pioglitazone 30 mg PO QAM pravastatin 20 mg PO BEDTIME sennosides (senna) 17.2 mg (2 x 8.6 mg) PO BEDTIME PRN sertraline 100 mg PO QAM trazodone 100 mg PO BEDTIME PRN TRUEplus Lancets (lancets) USE FOUR TIMES DAILY [facility] Medical History (Updated 05/10/25 @ 10:09 by CHRISTOPHER Farr) Left shoulder pain Esophageal spasm Right wrist pain Mass of soft tissue of right upper extremity Difficulty swallowing Asthma Neuropathy Mild pulmonary hypertension Atypical chest pain Venous insufficiency Diabetic retinopathy associated with type 2 diabetes mellitus Diabetic 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 associated with type 2 diabetes mellitus nursing home (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 of insulin Papillary microcarcinoma of thyroid Gastroparesis Post-surgical hypothyroidism Gallstones Uninodular goiter Arthritis Retinopathy Depression Diabetes mellitus with hyperglycemia Type 2 diabetes mellitus with diabetic neuropathy, unspecified Hyperlipidemia LDL goal <100 Essential hypertension Vitamin D deficiency Surgical History S/P appendectomy Hx of tubal ligation Hx of appendectomy History of bladder surgery H/O colonoscopy H/O thyroidectomy Hx of eye surgery History of esophagogastroduodenoscopy (EGD) History of cholecystectomy Family History Father No problems noted. Mother Diabetes mellitus Daughter Diabetes mellitus Social History Household Members: Family Housing: House Are you a primary resident care technician to a significant other at home: No Do you presently have visiting nurse or other home services: No Alcohol intake: current Alcohol intake frequency: does not drink Comment: rings appropriately Patient Tobacco Use Status: Never used Tobacco Second Hand Smoke Exposure: No service: No Current occupational status: disabled Current occupation: right handed Female Reproductive History Menstrual Age of Menarche: 8 Physical Exam Vital Signs: BMI result Body Mass Index 25.4 Extrem Other: Left shoulder examination shows that the surgical incisions are well healed, no erythema, slightly decreased range of motion when compared to her right shoulder, 5/5 strength with supraspinatus testing, no instability, mild discomfort with resisted forward flexion Office Procedures AMB Joint Injection/Aspiration Joint Injection/Aspiration Primary Site: left shoulder Prep: site was prepped using aseptic technique Injected: 40 mg of, DepoMedrol and 1% plain lidocaine Procedure: The patient tolerated the procedure well Coding 52157 - Large joint Procedure code (CPT) selection complete Assessment & Plan Assessment & Plan (1) Impingement syndrome of left shoulder: Code(s): M75.42 - Impingement syndrome of left shoulder Category: Medical Plan Ms. Anjum Hinds presents with continued left shoulder discomfort after undergoing left shoulder arthroscopic surgery due to rotator cuff tendinosis. The risks and benefits of a left shoulder cortisone injection were discussed at length with the patient. The patient wished to proceed. She tolerated the injection well. She will continue with her home stretching program. She will contact me prior to her follow-up appointment in 3 months should any questions or concerns arise. Feel free to call me at any time should questions regarding her orthopedic management arise. I spent 20 minutes in reviewing the patient's records and imaging studies, seeing the patient and documenting in the medical record. Orders: Orders AMB Joint Injection/Aspiration Today M75.42 - Impingement syndrome of left shoulder Coding Level of Care Code Est Pt Level 3 (72589) Complex EM visit Add On G2211 Diagnoses Impingement syndrome of left shoulder M75.42 CPT Codes Coding - 84467 Large joint: 85538 - Large joint ([id number])
--- OUTSIDE RECORDS SUMMARY | 2025-07-12 09:43 | XMS_ITS | Clinical Summary ---
Demographics Address [address] [place] [address] [address] [place] [address] Work Phone Home Phone Mobile Phone Preferred Language es Marital Status Single Restorationism Affiliation Unknown Race Other Race Ethnic Group Unknown Author Organization [employer] Address [address] [facility] 7t [place] [address] Care Team Providers Care Special Education Associate Name Role Phone Name, Roel ORTEGA Primary Care Provider [phone] Allergies Active Allergy Reactions Criticality Noted Date [...] Needle [place] U/F 32G X 4 MM [facility] [place] Active gabapentin (Neurontin) 300 MG capsule Take [...] 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 40 tablet Active albuterol (2.5 MG/3ML) 0.083% nebulizer solutionIndicatio ns:Mild persistent asthma without complication Take 3 mL (2.5 mg) by nebulization every 6 (six) hours if needed for wheezing or shortness of breath. 75 mL 1 024 Active Alcohol Swabs (Alcohol Prep) 70 % pads USE THREE TIMES DAILY 100 each 11 025 Active fluticasone furoate (Arnuity Ellipta) 100 [...] diabetic retinopathy 01/17/2019 Overview (02/09/2024): Follows at [facility] Diabetic 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 11/17/2017 Hypertension 10/04/2017 Diabetes mellitus 10/04/2017 Resolved Problems Problem Noted Date Diagnosed Date Resolved Date Diabetic neuropathy 09/22/2023 09/22/2023 12/24/19 Extrinsic asthma without complication 02/19/2023 12/24/2023 Thyroid nodule 09/15/2022 02/19/2023 Encounters Date Type Department Care Team Description 07/04/2025 Orders Only [facility] External Provider, [facility] 06/27/2025 10:00 AM EDT Office Visit [facility] ADULT DENTAL [address] [place] [address] Kathleen Alejandre Excessive attrition of teeth (Primary Dx); Gingival recession, localized; Dental plaque; Missing teeth, acquired 06/12/2025 Refill [facility] MEDICINE [address] [place] [address] Roel Rock MD 05/12/2025 Refill [facility] [address] [place] [address] Hellen Porter ANP Mild persistent asthma without complication 05/07/2025 10:40 AM EDT Office Visit [facility] [address] [place] [address] Bonnie Payne MD Vomiting in adult (Primary Dx) 05/07/2025 Travel 05/03/2025 Refill [facility] [address] [place] [address] Name, MD Roel Papillary thyroid carcinoma ([facility]) from Last 3 Months Immunizations Immunization Administration [...] Description 07/17/2025 3:15 PM EDT Office Visit [facility] MED[facility] [address] [place] [address] Name, MD Roel [address] [place] [address] 12/27/2025 8:45 AM EDT Office Visit [facility] ADULT D[facility] [address] [place] [address] Kathleen Alejandre [address] [place] [address] Health Maintenance Due Date Last Done Comments [...] Screening 03/05/2026 03/05/2025 Lipid Panel 03/30/2026 03/30/2025, 02/15, 07/23/2022, Additional history exists Tobacco Screening 06/27/2026 06/27/2025 Dental X-Ray: Bitewings 06/28/2026 06/27/20 25, 03/30/2024, 12/16/2020 Mammogram 03/29/2027 03/29/2025, 0603/2024, 03/16/2023, Additional history exists Dental X-Ray: Full [...] topic Meningococcal Vaccine Aged Out No ortiz rohnda eligible based on patient's age to complete [...] 05/07/2025 10:49 AM EDT Vomiting in adult LIPID PANEL, STANDARD Routine 03/30/2025 8:51 AM [...] AM EDT Narrative 07/04/2025 11:31 AM EDT [place] [address] Ultrasound Report Signed Patient: Lolly Mcginnis MR#: [id number] : 1965 Acct:[id number] Age/Sex: 60 / F ADM Date: 07/04/25 Loc: HO.US Attending Dr: Selena WHITE Ordering Physician: Selena Giang Date of Service: 07/04/25 Procedure(s): US abdomen complete Accession Number(s): [id number] cc: Selena GiangC; Name,Roel ORTEGA Reason for Exam: R10.13 - [...] 07/04/25 1128 DD/ 1036 TD/TT: 07/04/25 1053 Paper Machine Backtender: Procedure Note Donotuseinterpreter, Image - 07/04/[address] [address] Ultrasound Report Signed Patient: Lolly Mcginnis MMR#: [id number] : 1965Acct:[id number] Age/Sex: 60 / FADM Date: 07/04/25 Loc: HO.US Attending Dr: Selena WHITE Ordering Physician: Selena Giang Date of Service: 07/04/25 Procedure(s): US abdomen complete Accession Number(s): [id number] cc: Selena Giang; Name,Roel ORTEGA Reason for [...] 07/04/25 1128 DD/ 1036 TD/TT: 07/04/25 1053 Paper Machine Backtender: [facility] External Provider IMG US PROCEDURES Edited Result - Final * POCT COVID-19 Ag Cabral ID NOW (05/07/2025 10:49 AM EDT) Coronavirus Antigen PCR Negative Negative, Indeterminate, None Detected, Invalid, Specimen unsatisfactory for evaluation, Weakly Positive, 2+ Swab 05/07/2025 10:4 9 AM EDT us Bonnie Payne MD POINT OF CARE TEST ENTER /EDIT ORDERABLES Final Result * Lipid Panel, Standard (03/30/2025 8:51 AM EDT) Triglycerides 58 <150 mg/dL [facility] Comment:Desirable Triglyceri de: less than 150 mg/dLBorderline High Triglyceride 150-199 mg/dLHigh Triglyceride: 200-499 mg/dLVery High Triglyceride: greater than or equal to 5OO mg/dL Cholesterol 167 <200 mg/dL [facility] Comment:Desirable Cholestero l: less than 200 mg/dLBorderline High Cholesterol: 200-239 mg/dLHigh Cholesterol: greater than 239 mg/dL LDL Cholesterol Calculated 91 <100 mg/dL [facility] Comment:Desirable LDL: less than 100 mg/dLNear Optimal/Above Optimal LDL: 110- 129 mg/dLBorderline High LDL: 130-159 mg/dLHigh LDL: 160-189 mg/dLVery High LDL: greater than or equal to 190 mg/dL HDL Cholesterol 65 >40 mg/dL [facility] Comment:Desirable HDL: great er than 40 mg/dL Note: This HDL assay may give artificially low results in patients with liver disease. Blood Venous blood specimen / Unknown 03/30/2025 8:51 AM EDT 03/30/2025 11:04 AM EDT us Roel Rock MD LAB BLOOD ORDERABLES Final Resul t [facility] [address] [place] [address] [phone] * BI Mammogram Screening Tomosynthesis Bilateral (03/29/2025 2:44 PM EDT) Anatomical Region Laterality Modality Breast Bilateral Mammography 03/29/2025 2:44 PM EDT Narrative 04/07/2025 10:52 AM EDT [address] [place] [address] Mammography Report Signed Patient: Lolly Mcginnis MR#: [id number] : 1965 Acct:[id number] Age/Sex: 60 / F ADM Date: 03/29/25 Loc: HO.MAMMO Attending Dr: Roel Rock MD Ordering Physician: Roel Rock MD Results: 1Negative Date of Service: 03/29/25 Follow Up: 1 Year From Orig inal Mammogram Procedure(s): MM tomosynthesis screening BI Accession Number(s): [id number] cc: Roel Rock MD EXAMINATION: MM SCREENING [...] Agnieszka Vergara DO 04/07/2025 10:48 AM EDT Dictated By: Agnieszka Vergara DO Signed By: <Electronically signed by Agnieszka Vergara DO in OV> 04/07/25 1048 DD/ 1444 TD/TT: 03/29/25 1457 Paper Machine Backtender: Procedure Note Donotuseinterpreter, Image - 04/07/[address] [place] [address] Mammography Report Signed Patient: Lolly Mcginnis MMR#: [id number] : 1965Acct:[id number] Age/Sex: 60 / FADM Date: 03/29/25 Loc: HO.MAMMO Attending Dr: Roel Rock MD Ordering Physician: Roel Rock MDResults: 1Negative Date of Service: 03/29/25Follow Up: 1 Year From Orig ina Mammogram Procedure(s): MM tomosynthesis screening BI Accession Number(s): [id number] cc: Name,Roel ORTEGA EXAMINATION: MM SCREENING DIGITAL [...] Agnieszka Vergara DO 04/07/2025 10:48 AM EDT Dictated By: Agnieszka Vergara DO Signed By: <Electronically signed by Agnieszka Vergara DO in OV> 04/07/25 1048 DD/ 1444 TD/TT: 03/29/25 1457 Paper Machine Backtender: Roel Rock MD IM BI PROCEDURES Edited Result - Final * (ABNORMAL) Hemoglobin A1c (03/22/2025 1:26 PM EDT) Hemoglobin A1c 6.6(H) <6.0 % [facility] Comment:Hemoglobin A1C Refer ence Range Adults: 4.8 - 6.0 % Non diabetic: < 6.0 % Goal: < 7.0 %Additional Action Suggested: > 8.0 %Note: Hemoglobin A1c results are invalid for patients with abnormal amounts of HbF. Blood transfusions may impact the HbA1c concentration in the patient sample. Estimated Average Glucose 143 mg/dL [facility] Comment:eAG = Estimated ave rage glucose which is %A1C expressed asaverage glucose, using the formula of the R9Q-YvqkfjbWbxddkm Glucose study (ADAG), Diabetes Care, Vol.31,#8,2007 03/22/2025 1:26 PM EDT 03/22/2025 1:26 PM EDT us Generic External Data Provider LAB BLOOD ORDERAB LES Final Result Performing Organization Address [facility] [employer] Phone Number [facility] [address] [place] [phone] * Hepatitis C Antibody with Reflex to HCV, RNA, Quantitative, Real-Time PCR (04/17/2024 11:32 AM EDT) Hepatitis C Antibody Nonreactive Nonreactive [facility] Comment:Antibodies to HCV no t detected; does not exclude early acuteHCV infection. Blood Venous blood specimen / Unknown 04/17/2024 11:32 AM EDT 04/17/2024 1:13 PM EDT us Roel Rock MD LAB BLOOD ORDERABLES Final Resul t Performing Organization Address [facility] [employer] Phone Number [facility] [address] [place] [phone] * Albumin, Random Urine W/Creatinine (02/26/2023 8:39 AM EDT) Creatinine, Random Urine 142 20 - 275 mg/dL [facility] [employer] Albumin, Urine 1.9 See Note: mg/dL [facility] Comment: Reference Range: Reference Range Not established Albumin/Creatinin e Ratio, Random Urine 13 <30 mcg/mg creat [facility] [place] [facility] Comment: The ADA defines abnormalities in albumin [...] MD LAB URINE ORDERABLES Final Resul t [address], [place] [address] [facility] [place] [facility] [address] [place] [phone] * Image-Guided Pap with Age-Based Screening Protocols (01/13/2023 11:48 AM EDT) Comment [facility] Comment: This order for age-based cervical cancer and STI screening follows ACOG guidelines(PB 168, 140, ZXM799). See individual assays for performing site location. Clinical Information: None given [facility] LMP: NONE GIVEN [facility] Prev. PAP: NONE GIVEN [facility] Prev. BX: NONE GIVEN [facility] SOURCE: None given [facility] Statement Of Adequacy: SATISFACTORY FOR EVALUATION [facility] Interpretation/Re sult: [facility] Comment: Negative for intraepithelial lesion or malignancy. Atrophic pattern; predominantly parabasal cells COMMENT: This Pap test has been evaluated with computer assisted technology. [facility] Wood Gouger: [facility] Comment: SXA, CT(ASCP) CT screening location: [address] [address] (Always Message) [facility] Comment: EXPLANATORY NOTE: The Pap is a [...] HPV nRNA E6/E7 Not Detected Not Detected [facility] Comment: Methodology: Payroll Auditor-Mediated Amplification This assay detects E6/E7 viral messenger RNA (mRNA) from 14 high-risk HPV types (16,18,31,33,35,39,45,51,52,56,58,59,66,68). Cervical sources are required for HPV testing. If a vaginal source from a patient who has had a total hysterectomy with removal of cervix was submitted, please contact the testing laboratory for alternative testing options. For additional information, please refer to http://education.GEOCOMtms/faq/HSW197m9 (This link if provided for information/ educational purposes only.) Cytology specimen container (physical object) 01/13/2023 11:48 AM EDT 01/14/2023 2:03 AM EDT Erica Joseph CNM LAB BLOOD ORDERABLES Janis kaba Result [facility] [address], [place] [address] [facility] [address] [place] [phone] * Hm Colonoscopy (11/14/2018 4:17 PM EST) Colonoscopy Normal Normal Narrative Ami Giraldo - 11/14/2018 4:17 PM EST Recommended 5 year follow up Historical Provider MD HEALTH MAINTENANCE Final Result from Last 3 Months or Most Recently Relevant to Health Maintenance Insurance [address] [place] [address] [facility] C[facility] [place] STAND ADULT Care Teams Special Education Associate Relationship Specialty Start Date End Date Name, MD Roel [address] [place] [address] PCP - General Family Medicine 10/04/17
--- OUTSIDE RECORDS SUMMARY | 2025-07-12 09:43 | XMS_ITS | Encounter Summary ---
Author Organization [employer] Address [address] [facility] 7t [place] [address] Care Team Providers Care Production Packager Name Role Phone NameRoel MD Primary Care Provider [phone] Reason for Visit * Reason Comments Med Refill Encounter Details Date Type Department Care Team ([facility] st Contact Info) Description 06/05/2024 Refill [facility] MED[facility] [address] [place], [place] [phone] Name, MD Roel [address] [place] [address] Essential hypertension Social History Tobacco Use Types [...] Description 07/17/2025 3:15 PM EDT Office Visit [facility] MED[facility] [address] [place] [phone] Name, MD Roel [address] [place] [address] 12/27/2025 8:45 AM EDT Office Visit [facility] ADULT DENTAL [address] [place] [address] Pili, Kathleen [address] [place] [address] documented as of this encounter Visit Diagnoses Diagnosis Essential hypertension Unspecified essential hypertension documented in this encounter Additional Health Concerns Assessment Noted Time PHQ-9 Depression Total Score: 0 12/31/19 24 10:54 AM EDT documented as of this encounter Care Teams Production Packager Relationship Specialty Start Date End Date NameRoel MD [address] [place] [phone] PCP - General Family Medicine 10/04/17 documented as of this encounter
--- OUTSIDE RECORDS SUMMARY | 2025-07-12 09:43 | XMS_ITS | Encounter Summary ---
Author Organization [employer] Address [address] [facility] 7t [place] [address] Care Team Providers Care Alley Cleaner Name Role Phone Name, Roel ORTEGA Primary Care Provider [phone] Reason for Visit * Reason Comments Med Refill Encounter Details Date Type Department Care Team ([facility] st Contact Info) Description 05/12/2025 Refill [facility] MED[facility]INE [address] [place], [place] [phone] Hellen Porter, ANP [address] [place], [place] [phone] Mild persistent asthma without complication Social History [...] the past 12 months, has t he [employer], gas, oil or water [employer] threatened to shut off services in your [...] Description 07/17/2025 3:15 PM EDT Office Visit [facility] MED[facility] [address] [place] [phone] Roel Rock MD [address] [place] [address] 12/27/2025 8:45 AM EDT Office Visit [facility] ADULT DENTAL [address] [place] [address] Kathleen Alejandre [address] [place] [address] documented as of this encounter Visit Diagnoses Diagnosis Mild persistent asthma without complication documented in this encounter Additional Health Concerns Assessment Noted Time PHQ-9 Depression Total Score: 9 03/05/20 25 2:25 PM EDT documented as of this encounter Care Teams Alley Cleaner Relationship Specialty Start Date End Date Roel Rock MD [address] [place] [address] PCP - General Family Medicine 10/04/17 documented as of this encounter
--- OUTSIDE RECORDS SUMMARY | 2025-07-12 09:43 | XMS_ITS | Encounter Summary ---
Author Organization [facility] Address [address] [place] [address] 7t [place] [address] Care Team Providers Care Machine Applicator Cementer Name Role Phone Name, Roel ORTEGA Primary Care Provider [phone] Encounter Details Date Type Department Care Team (Late st Contact Info) Description 12/18/2022 Abstract [facility] ADULT DENTAL [address] [place] [address] Najma Interiano, DDS [address] [place] [address] Social History Tobacco Use Types Packs/Day Years [...] Description 07/17/2025 3:15 PM EDT Office Visit [facility] MED[facility] [address] [place] [address] Name, MD Roel [address] [place] [address] 12/27/2025 8:45 AM EDT Office Visit [facility] ADULT [facility] [address] [place] [address] Kathleen Alejandre [address] [place] [address] documented as of this encounter Visit Diagnoses Not on filedocumented in this encounter Additional Health Concerns Assessment Noted Time PHQ-9 Depression Total Score: 0 11/03/19 8:54 AM EST documented as of this encounter Care Teams Machine Applicator Cementer Relationship Specialty Start Date End Date Name, MD Roel [address] [place] [address] PCP - General Family Medicine 10/04/17 documented as of this encounter
--- OUTSIDE RECORDS SUMMARY | 2025-07-12 09:43 | XMS_ITS | Encounter Summary ---
Author Organization [facility] Address [address] [facility] 7t [place] [address] Care Team Providers Care Instructional Materials Director Name Role Phone Name, Roel ORTEGA Primary Care Provider [phone] Encounter Details Date Type Department Care Team (Late st Contact Info) Description 03/19/2023 Abstract [facility] MEDICINE [address] [place] [address] Name, MD Roel [address] [place] [address] Social History Tobacco Use Types Packs/Day Years [...] Description 07/17/2025 3:15 PM EDT Office Visit [facility] MED[facility] [address] [place] [address] Name, MD Roel [address] [place] [address] 12/27/2025 8:45 AM EDT Office Visit [facility] ADULT DENTAL [address] [place] [address] Pili, Kathleen [address] [place] [address] documented as of this encounter Visit Diagnoses Not on filedocumented in this encounter Additional Health Concerns Assessment Noted Time PHQ-9 Depression Total Score: 0 11/03/19 23 8:54 AM EST documented as of this encounter Care Teams Instructional Materials Director Relationship Specialty Start Date End Date Name, MD Roel [address] [place] [address] PCP - General Family Medicine 10/04/17 documented as of this encounter
--- OUTSIDE RECORDS SUMMARY | 2025-07-12 09:43 | XMS_ITS | Encounter Summary ---
Author Organization [facility] Address [address] [place] [address] 7t [place] [address] Care Team Providers Care Music Engineer Name Role Phone NameRoel MD Primary Care Provider Encounter Details Date Type Department Care Team (Latest Contact Info) Description 12/20/2020 Abstract [facility] CONVERSIONS Dental, Provider, DDS Social History [...] Description 07/17/2025 3:15 PM EDT Office Visit [facility] MED[facility]INE [address] [place] [address] NameRoel MD [address] [place] [address] 12/27/2025 8:45 AM EDT Office Visit [facility] ADULT DENTAL [address] [place] [address] PiliJesseKathleen [address] [place] [address] documented as of this encounter Visit Diagnoses Not on filedocumented in this encounter Care Teams Music Engineer Relationship Specialty Start Date End Date NameRoel MD [address] [place] [address] PCP - General Family Medicine 10/04/17 documented as of this encounter
--- OUTSIDE RECORDS SUMMARY | 2025-07-12 09:43 | XMS_ITS | Encounter Summary ---
Author Organization [employer] Address [address] [facility] 7t [place] [address] Care Team Providers Care Petroleum Supply Specialist Name Role Phone NameRoel MD Primary Care Provider [phone] Reason for Visit * Reason Onset Date Comments Results 04/19/2024 Encounter Details Date Type Department Care Team ([facility] st Contact Info) Description 04/19/2024 Telephone [facility] MEDICINE [address] [place], [place] [phone] Name, MD Roel [address] [place] [address] Results Social History Tobacco Use Types Packs/Day [...] Visit [facility] MEDICINE [address] [place] [phone] Name, MD Roel [address] [place] [address] 12/27/2025 8:45 AM EDT Office Visit [facility] ADULT DENTAL [address] [place], [place] [phone] Jesse Alejandrearis [address] [place], [place] [phone] documented as of this encounter Visit Diagnoses Not on filedocumented in this encounter Additional Health Concerns Assessment Noted Time PHQ-9 Depression Total Score: 0 12/31/19 24 10:54 AM EDT documented as of this encounter Care Teams Petroleum Supply Specialist Relationship Specialty Start Date End Date Name, MD Roel [address] [place] [address] PCP - General Family Medicine 10/04/17 documented as of this encounter
--- OUTSIDE RECORDS SUMMARY | 2025-07-12 09:43 | XMS_ITS | Encounter Summary ---
Author Organization [facility] Address [address] [facility] 7t [place] [address] Care Team Providers Care Auto Emissions Technician Name Role Phone Name, Roel ORTEGA Primary Care Provider [phone] Encounter Details Date Type Department Care Team (Late st Contact Info) Description 03/18/2023 Abstract [facility] MEDICINE [address] [place] [address] Name, MD Roel [address] [place] [address] Social History Tobacco Use Types Packs/Day Years [...] Description 07/17/2025 3:15 PM EDT Office Visit [facility] MED[facility] [address] [place] [address] Name, MD Roel [address] [facility] [place] [address] 12/27/2025 8:45 AM EDT Office Visit [facility] ADULT D[facility]AL [address] [facility] [place] [address] Kathleen Alejandre [address] [facility] [place] [address] documented as of this encounter Procedures Procedure [...] documented as of this encounter Care Teams Auto Emissions Technician Relationship Specialty Start Date End Date Name, MD Roel Kylah [facility] [place] [address] PCP - General Family Medicine 10/04/17 documented as of this encounter
--- OUTSIDE RECORDS SUMMARY | 2025-07-12 09:44 | XMS_ITS | Encounter Summary ---
Author Organization [employer] Address [address] [facility] 7t [place] [address] Care Team Providers Care Hog Killer Name Role Phone Name, Roel ORTEGA Primary Care Provider [phone] Encounter Details Date Type Department Care Team ([facility] st Contact Info) Description 07/06/2023 Telephone [facility] MEDICINE [address] [place], [place] [phone] Name, MD Roel [address] [place] [address] Social History Tobacco Use Types Packs/Day Years [...] letter to schedule f/u appointment with coleen. Log Roller does not see any documentation on letter or recall. Please contact pt at [phone] (Latvian) documented in this encounter Plan of Treatment Upcoming Encounters Date Type Department Care Team (Late st Contact Info) Description 07/17/2025 3:15 PM EDT Office Visit [facility] MED[facility]INE [address] [place] [address] Roel Rock MD [address] [place] [address] 12/27/2025 8:45 AM EDT Office Visit [facility] ADULT DENTAL [address] [place] [address] Kathleen Alejandre [address] [place] [address] documented as of this encounter Visit Diagnoses Not on filedocumented in this encounter Additional Health Concerns Assessment Noted Time PHQ-9 Depression Total Score: 0 11/03/19 23 8:54 AM EST documented as of this encounter Care Teams Hog Killer Relationship Specialty Start Date End Date NameRoel MD [address] [place] [address] PCP - General Family Medicine 10/04/17 documented as of this encounter
--- OUTSIDE RECORDS SUMMARY | 2025-07-12 09:44 | XMS_ITS | Encounter Summary ---
Author Organization [employer] Address [address] [facility] 7t [place] [address] Care Team Providers Care Animation Camera Operator Name Role Phone NameRoel MD Primary Care Provider [phone] Reason for Visit * Reason Onset Date Comments Appointment Request 12/09/2023 Encounter Details Date Type Department Care Team ([facility] st Contact Info) Description 12/09/2023 Telephone [facility] [address] [place], [place] [phone] Name, MD Roel [address] [place] [address] Appointment Request Social History Tobacco Use Types [...] Description 07/17/2025 3:15 PM EDT Office Visit [facility] [address] [place] [address] Name, MD Roel [address] [place] [address] 12/27/2025 8:45 AM EDT Office Visit [facility] ADULT DENTAL [address] [place] [address] Pili, Kathleen [address] [place] [address] documented as of this encounter Visit Diagnoses Not on filedocumented in this encounter Additional Health Concerns Assessment Noted Time PHQ-9 Depression Total Score: 0 11/03/19 23 8:54 AM EST documented as of this encounter Care Teams Animation Camera Operator Relationship Specialty Start Date End Date NameRoel MD [address] [place] [address] PCP - General Family Medicine 10/04/17 documented as of this encounter
--- OUTSIDE RECORDS SUMMARY | 2025-07-12 09:44 | XMS_ITS | Encounter Summary ---
Author Organization [employer] [facility] Address [address] [place] [address] 7t [place] [address] Care Team Providers Care Rn Residential Name Role Phone Name, Roel ORTEGA Primary Care Provider [phone] Encounter Details Date Type Department Care Team (Late st Contact Info) Description 09/15/2022 Abstract [facility] ADULT DENTAL [address] [place] [address] Dental, Provider, DDS Social History Tobacco Use [...] 07/17/2025 3:15 PM EDT Office Visit [facility] [address] [place] [address] Name, MD Roel [address] [place] [address] 12/27/2025 8:45 AM EDT Office Visit [facility] AD[facility] [address] [place] [address] Kathleen Alejandre [address] [place] [address] documented as of this encounter Visit Diagnoses Not on filedocumented in this encounter Care Teams Rn Residential Relationship Specialty Start Date End Date Name, MD Roel [address] [place] [address] PCP - General Family Medicine 10/04/17 documented as of this encounter
== END 2025-07-12 09:27 | disposition home or self-care (01) ==
LOC: HO.HOS 08:58
PROVIDERS: PCP Internal Medicine Geriatric Medicine; Visit Provider Orthopaedic Surgery
DX: M75.42 Impingement syndrome of left shoulder (principal)
CPT/HCPCS: 20610; 99213

== ENCOUNTER → 2025-07-12 08:58 | Outpatient (BNVA) | payer MEDICAID, SELFPAY | PROVIDERS: PCP Internal Medicine Geriatric Medicine; Visit Provider Orthopaedic Surgery | DX: K31.84 Gastroparesis (principal); R11.2 Nausea with vomiting, unspecified; K21.9 Gastro-esophageal reflux disease without esophagitis; M25.512 Pain in left shoulder | CPT/HCPCS: 20610; 99212; J1010; J2003 ==

== ENCOUNTER 2025-07-12 09:33 | Outpatient (AMB) | payer MEDICAID, SELFPAY ==
--- NOTE | 2025-07-12 09:37 | MHC.OFFVIS ---
Intake Visit Reasons: Epigastric pain. N+V. US results Allergies metformin Adverse Reaction (Mild, Verified 07/12/25 09:05) stomach upset HPI HPI Epigastric pain. N+V. US results: Details: Assessment & Plan (1) Gastroparesis: Code(s): K31.84 - Gastroparesis Category: Medical (2) Nausea and vomiting: Code(s): R11.2 - Nausea with vomiting, unspecified Category: Medical Plan Vincentian #Kwabena She is here today with her who is supportive Unfortunately, her nausea and vomiting has only worsened. Now it is so bad that she can not even take any of her pills in the only medication she has been taking his her Trulicity. All of her medications come in a med box so she does not know which 1 is the Reglan. Because of this I think something happened and her diabetic gastroparesis is becoming more and more out of control because she did not understand how to prioritize which medications to take. As much as I hate to do this I think we need to stop the Trulicity since it contribute to increased gastroparesis and have her take if nothing else, only the Reglan to get her GI system restarted. She is uncertain which pill it is so I am going to have her bring the home med box in so I can identify it for her. I would have her come in sooner but she has not emergency and has to fly to [place] with the undetermined return date. Because of the she had rescheduled her ultrasound further out. I am also going to order an EGD since we are booking into July in case we do not have resolution with the above strategy. Hopefully if we can get the nausea and vomiting under control we can then slowly add back in her other chronic medications. However, she is not doing any good to her health now since she is not getting any of the med including her thyroid medicines. Return office visit after the ultrasound in June. Orders: Orders EGD - GI Use Only Today K31.84 - Gastroparesis, R11.2 - Nausea with vomiting, unspecified EGD BIOPSY ULTRASOUND OF THE ABDOMEN 07/04/2025 FINDINGS: PANCREAS: No peripancreatic fluid collections or gross 8 pancreatic ductal dilatation. ABDOMINAL AORTA: The proximal, mid, and distal segments are normal in caliber. INFERIOR VENA CAVA: Visualized portions are normal. LIVER: Liver measures 14 cm. No nodular surface. Coarse echotexture. No gross solid or cystic lesion. No intrahepatic biliary ductal dilatation. GALLBLADDER: Cholecystectomy. COMMON BILE DUCT 3 mm. RIGHT KIDNEY: 11 cm. Normal echotexture. Normal renal cortical thickness. No hydronephrosis. No gross solid or cystic lesion. LEFT KIDNEY: 11 cm. Normal echotexture. Normal renal cortical thickness. No hydronephrosis. No gross solid or cystic lesion. SPLEEN: 10 cm. No gross lesion.. FREE FLUID: None. US/US abdomen complete IMPRESSION: No intrahepatic or extrahepatic biliary ductal dilatation. Probable hepatic steatosis versus less likely, hepatocellular disease. No ascites. No hydronephrosis. TODAY'S VISIT Vincentian # SHE IS ALSO OVERDUE FOR COLONOSCOPY. 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 Mother Diabetes mellitus Daughter Diabetes mellitus Social History Household Members: Family Housing: House Are you a primary health care law specialist to a significant other at home: No Do you presently have visiting nurse or other home services: No Alcohol intake: current Alcohol intake frequency: does not drink Comment: rings appropriately Patient Tobacco Use Status: Never used Tobacco Second Hand Smoke Exposure: No service: No Current occupational status: disabled Current occupation: right handed Female Reproductive History Menstrual Age of Menarche: 8 Review of Systems Const Denies fatigue, Denies fever(s), Denies night sweats, Denies poor appetite and Denies weight loss Eyes Details: glasses Reports requires corrective lenses ENT Reports Normal hearing present, Denies dental pain, Denies dysphagia, Denies hearing loss, Denies mouth pain, Denies odynophagia, Denies throat swelling, Denies tongue swelling and Reports other (Dentition adequate) Card Reports no additional complaints Resp Reports no additional complaints GI Details: Reports abdominal pain, Denies melena, Denies bloating, Denies hematochezia, Reports constipation, Denies GI cramping, Denies dysphagia, Denies excessive flatus, Reports early satiety, Reports heartburn, Denies diarrhea, Reports nausea, Denies odynophagia, Reports vomiting and Denies hematemesis Skin/Breast Denies pruritus, Denies lesions, Denies rash and Denies jaundice Neuro Reports Normal hearing present and Denies Abnormal speech present Endo Denies fatigue Aller/Immun Denies throat swelling and Denies tongue swelling Physical Exam Const General: cooperative, no acute distress, well developed and well groomed Nutritional Appearance: well nourished and overweight Orientation/consciousness: oriented to person, oriented to place and oriented to time Limitations: language barrier HEENT Head: Yes normocephalic and Yes atraumatic Eyes General: appearance normal, both eyes and all related structures Pupils: Equal, round and reactive pupils present Neck Neck: Yes normal visual inspection and Yes no lymphadenopathy Thyroid: Thyroid normal Resp Effort & Inspection: normal respiratory effort and able to speak in complete sentences Auscultation: clear to auscultation bilaterally Cardio Rate: regular rate Rhythm: regular rhythm Heart sounds: Normal, physiologic split S2 sound present Peripheral pulses: radial pulses present and posterior tibial pulses present GI Inspection: No distended, No Abdominal panniculus present and Yes obesity Palpation (GI): Soft to palpation, nontender, no guarding, not rigid and No hepatosplenomegaly present Percussion: Yes normal to percussion Auscultation: normal bowel sounds Rectal Exam - Female: deferred Skin General skin exam: no rashes or lesions noted, turgor normal, skin not dry, no jaundice, No spider nevi and no striae Rashes: no rashes Nails: normal Neuro General: oriented to person, oriented to place and oriented to time Cranial nerves: Yes Equal, round and reactive pupils present and Yes Normal hearing present Speech: No Abnormal speech present Extrem General: Yes normal to inspection, No clubbing, No cyanosis and No edema Psych Appearance: grossly normal and well kempt Mental Status: mental status grossly normal Speech and movement: Normal speech and movement present Affect: normal affect Attitude: cooperative Thought process: Normal thought process present and not confabulating Thought content: Normal thought content present Insight: Limited insight present (Psych) Judgement: Limited judgement present (Psych) Assessment & Plan Assessment & Plan (1) Gastroparesis: Code(s): K31.84 - Gastroparesis Category: Medical (2) GERD (gastroesophageal reflux disease): Code(s): K21.9 - Gastro-esophageal reflux disease without esophagitis Category: Medical (3) Nausea and vomiting: Code(s): R11.2 - Nausea with vomiting, unspecified Category: Medical Plan Vincentian Angela ascencio Her GI regimen should consist of dicyclomine, Colace, Reglan 10 mg 4 times a day, omeprazole twice a day, and senna. - The patient is a 60-year-old female presenting with persistent nausea, vomiting, and abdominal pain, in the context of known gastroparesis. - Nausea and vomiting have been continuous for the past three days, worsening with food intake. - Abdominal pain rated at 6 to 7 out of 10, severely affecting the patient's ability to consume food. - again, she is uncertain if she has a metoclopramide in appears she may have run out of refills. Since all of her medications are in a pill pack I advise her to come back in 2 weeks and bring all of her medications with her. If she does have the Reglan in his taking in his directed then we need to look for another source of her pain. - Recent ultrasound revealed a mild fatty liver, with no major findings to fully account for symptoms. Return office visit in 2 weeks Medications: Refilled sennosides (senna) 17.2 mg (2 x 8.6 mg) PO BEDTIME PRN 60 tabs 6RF for constipation metoclopramide HCl (Reglan) 10 mg PO QIDACHS 120 tabs 6RF K31.84 - Gastroparesis omeprazole 40 mg PO BID 60 caps 6RF 30 days dicyclomine 20 mg PO .TIDAC 90 tabs 6RF 30 days K22.4 - Dyskinesia of esophagus Coding Level of Care Code Est Pt Level 3 (79728) Diagnoses Gastroparesis K31.84 GERD (gastroesophageal reflux disease) K21.9 Nausea and vomiting R11.2
== END 2025-07-12 10:20 | disposition home or self-care (01) ==
LOC: HO.HGI 09:34
PROVIDERS: PCP Internal Medicine Geriatric Medicine; Visit Provider Nurse Practitioner
DX: K31.84 Gastroparesis (principal); K21.9 Gastro-esophageal reflux disease without esophagitis; R11.2 Nausea with vomiting, unspecified
CPT/HCPCS: 99213

== ENCOUNTER 2025-07-17 15:53 | Outpatient (REF) | payer MEDICAID, SELFPAY ==
--- OUTSIDE RECORDS SUMMARY | 2025-07-17 15:15 | XMS_ITS | Encounter Summary ---
Author Organization [employer] Address [address] [facility] 7t [place] [address] Care Team Providers Care Sock Knitting Machine Operator Name Role Phone NameRoel MD Primary Care Provider [phone] Reason for Visit * Reason Comments Follow-up Encounter Details Date Type Department Care Team (Latest Contact Info) Description 07/17/2025 3:15 PM EDT Office Visit [facility] MEDICINE [address] [place], [place] [phone] Name, MD Roel [address] [place] [address] Type 2 diabetes mellitus with other specified complication, with long-term current use of insulin ([facility]) (Primary Dx); Screening for HIV (human immunodeficiency virus); Encounter for immunization Social History Tobacco Use Types Packs/Day Years [...] Sign Reading Time Taken Comments Blood Pressure 144/78 07/17/2025 3:17 PM EDT Pulse 89 07/17/2025 3:17 PM EDT Temperature 36.3 C (97.4 F) 07/17/2025 3:17 PM EDT Respiratory Rate 12 07/17/2025 3:17 PM EDT Oxygen Saturation 97% 07/17/2025 3:17 PM EDT Inhaled Oxygen Concentration - - Weight 64.9 kg (143 lb) 07/17/2025 3:17 PM EDT Height 154.9 cm (5' 1 ) 07/17/2025 3:17 PM EDT Body Mass Index 27.02 07/17/2025 3:17 PM EDT documented in this encounter Progress Notes * Roel Rock MD - 07/17/2025 3:15 PM EDT Images from the original note were not included. Subjective Patient ID: Lolly Hinds is a 60 y.o. female who presents for Follow-up. Lolly comes for a follow up visit and she is asymptomatic Her blood sugar is well controlled at home She is following with [facility] Endo She agreed with the flu vaccine today Review of Systems Constitutional: Negative for chills and fever. HENT: Negative for sore throat. Respiratory: Negative for cough, shortness of breath and wheezing. Cardiovascular: Negative for chest pain, palpitations and leg swelling. Gastrointestinal: Negative for abdominal pain. Objective Vitals: 07/17/25 1517 BP: (!) 144/78 BP Location: Left arm Patient Position: Sitting BP Cuff Size: Adult Pulse: 89 Resp: 12 Temp: 97.4 ??F (36.3 ??C) TempSrc: Temporal SpO2: 97% Weight: 143 lb (64.9 kg) Height: 5' 1 (1.549 m) Physical Exam Constitutional: Appearance: Normal appearance. Cardiovascular: Rate and Rhythm: Normal rate and regular rhythm. Pulses: Dorsalis pedis pulses are 2+ on the right side and 2+ on the left side. Posterior tibial pulses are 2+ on the right side and 2+ on the left side. Heart sounds: No murmur heard. No gallop. Pulmonary: Effort: Pulmonary effort is normal. No respiratory distress. Breath sounds: Normal breath sounds. No wheezing. Musculoskeletal: Right lower leg: No edema. Left lower leg: No edema. Right foot: Normal range of motion. Left foot: Normal range of motion. Feet: Right foot: Protective Sensation: 5 sites tested. 3 sites sensed. Skin integrity: Skin integrity normal. Toenail Condition: Right toenails are normal. Left foot: Protective Sensation: 5 sites tested. 3 sites sensed. Skin integrity: Skin integrity normal. Toenail Condition: Left toenails are normal. Neurological: Mental Status: She is alert. Hemoglobin A1c Order: [id number] Status: Final result Test Result Released: Yes (not seen) 0 Result Notes 1 Topic Component Ref Range & Units (hover) 3 mo ago (03/22/25) 7 mo ago (11/30/24) 1 yr ago (07/07/24) 1 yr ago (04/03/24) 1 yr ago (12/31/23) 1 yr ago (09/22/23) 2 yr ago (06/15/23) Hemoglobin A1c 6.6 High 6.7 Abnormal R 7.1 Abnormal R 7.7 Abnormal R 10.6 Abnormal R 7.4 Abnormal R7.6 Abnormal Lab Results Component Value Date GLUCOSE 151 (H) 03/30/2025 NA 141 03/30/2025 K 4.2 03/30/2025 CO2 30 (H) 03/30/2025 CL 104 03/30/2025 BUN 13 03/30/2025 CREATININE 0.65 03/30/2025 Lab Results Component Value Date WBC 5.4 03/22/2025 HGB 13.5 03/22/2025 HCT 41.9 03/22/2025 MCV 86.0 03/22/2025 PLT 241 03/22/2025 Albumin, Random Urine W/Creatinine Order: [id number] Status: Final result Dx: Type 2 diabetes mellitus with other s... Test Result Released: Yes (not seen) 0 Result Notes 1 Topic Component Ref Range & Units (hover) 2 yr ago Creatinine, Random Urine 142 Albumin, Urine 1.9 Comment: Reference Range: Reference Range Not established Albumin/Creatinine Ratio, Random Urine 13 Comment: Assessment/Plan Diagnoses and all orders for this visit: Type 2 diabetes mellitus with other specified complication, with long-term current use of insulin ([facility]) Comments: Well controlled, she will continue on her meds prescribed at [facility] endo, flu vaccine today, check urine for microalbumin Orders: - POCT Glucose - Albumin, Random Urine W/Creatinine; Future Screening for HIV (human immunodeficiency virus) Comments: She will go for routine HIV screening, she is not at high risk Orders: - HIV-1/2 Antigen and Antibodies, Fourth Generation, with Reflexes; Future Encounter for immunization - FLU VACCINE TRIVALENT [id number] (Fluarix) 19 yrs + Future Appointments Date Time Provider Department Center 12/27/2025 8:45 AM Kathleen [facility] documented in this encounter Plan of Treatment Upcoming Encounters Date Type Department Care Team ([facility] st Contact Info) Description 12/27/2025 8:45 AM EDT Office Visit [facility] [address] [place] [address] Kathleen Alejandre [address] [place] [address] Scheduled Orders Name Type Priority Associated Diagnoses Orde r Schedule Albumin, Random Urine W/Creatinine Lab Routine Type 2 diabetes mellitus with other specified complication, with long-term current use of insulin (CMS/HCC) Expected: 07/17/2025 (Approximate), Expires: 07/17/2026 HIV-1/2 Antigen and Antibodies, Fourth Generation, with Reflexes Lab Routine Screening for HIV (human immunodeficiency virus) Expected: 07/17/2025 (Approximate), Expires: 07/17/2026 documented as of this encounter Procedures Procedure Name Priority Date/Time Associated Diagnosis Comments POCT GLUCOSE Routine 07/17/2025 3:19 PM EDT Type 2 diabetes mellitus with other specified complication, with long-term current use of insulin ([facility]) documented in this encounter Results * POCT Glucose (07/17/2025 3:19 PM EDT) [facility] Glucose Blood, POC 158 [id number] - 200 mg/dL QC Media Lot # [id number] Lot# Expiration Date Blood Capillary blood specimen / Unknown 07/17/2025 3:19 PM EDT Roel Rock MD POINT OF CARE TEST ENTER/EDIT OR DERABLES Final Result documented in this encounter Visit Diagnoses Diagnosis Type 2 diabetes mellitus with other specified complication, with long-term current use of insulin ([facility])- Primary Screening for HIV (human immunodeficiency virus) Special screening examination for other specified viral diseases Encounter for immunization documented in this encounter Additional Health Concerns Assessment Noted Time PHQ-9 Depression Total Score: 9 03/05/20 25 2:25 PM EDT documented as of this encounter Care Teams Sock Knitting Machine Operator Relationship Specialty Start Date End Date Name, MD Roel [address] [place] [address] PCP - General Family Medicine 10/04/17 documented as of this encounter
--- OUTSIDE RECORDS SUMMARY | 2025-07-17 17:00 | XMS_ITS | Encounter Summary ---
Author Organization [employer] Address [address] [facility] 7t [place] [address] Care Team Providers Care Dyehouse Worker Name Role Phone Name, Roel ORTEGA Primary Care Provider [phone] Reason for Visit * Reason Comments Med Refill Encounter Details Date Type Department Care Team ([facility] st Contact Info) Description 05/12/2025 Refill [facility] MEDICINE [address] [place] [address] Hellen Porter, ANP [address] [place] [address] Mild persistent asthma without complication Social History [...] Care Team (Late st Contact Info) Description 12/27/2025 8:45 AM EDT Office Visit [facility] ADULT DENTAL [address] [place] [address] Jesse Alejandrearis [address] [place] [address] documented as of this encounter Visit Diagnoses Diagnosis Mild persistent asthma without complication documented in this encounter Additional Health Concerns Assessment Noted Time PHQ-9 Depression Total Score: 9 03/05/20 25 2:25 PM EDT documented as of this encounter Care Teams Dyehouse Worker Relationship Specialty Start Date End Date Name, MD Roel [address] [place] [address] PCP - General Family Medicine 10/04/17 documented as of this encounter
--- OUTSIDE RECORDS SUMMARY | 2025-07-17 17:00 | XMS_ITS | Encounter Summary ---
Author Organization [employer] [facility] Address [address] [facility] 7t [place] [address] Care Team Providers Care Printer Small Print Shop Name Role Phone Name, Roel ORTEGA Primary Care Provider [phone] Encounter Details Date Type Department Care Team (Late st Contact Info) Description 03/19/2023 Abstract [facility] MEDICINE [address] [place] [address] Name, MD Roel [address] [place] [address] Social History Tobacco Use Types Packs/Day Years [...] Department Care Team (Late Contact Info) Description 12/27/2025 8:45 AM EDT Office Visit [facility] ADULT DENTAL [address] [place] [address] Kathleen Alejandre [address] [place] [address] documented as of this encounter Visit Diagnoses Not on filedocumented in this encounter Additional Health Concerns Assessment Noted Time PHQ-9 Depression Total Score: 0 11/03/19 23 8:54 AM EST documented as of this encounter Care Teams Printer Small Print Shop Relationship Specialty Start Date End Date Name, MD Roel [address] [place] [address] PCP - General Family Medicine 10/04/17 documented as of this encounter
--- OUTSIDE RECORDS SUMMARY | 2025-07-17 17:00 | XMS_ITS | Encounter Summary ---
Author Organization [employer] Address [address] [facility] 7t [place] [address] Care Team Providers Care Manufacturing Engineering Intern Name Role Phone Name, Roel ORTEGA Primary Care Provider [phone] Encounter Details Date Type Department Care Team (Latest Contact Info) Description 07/17/2025 Travel Social History Tobacco Use Types Packs/Day [...] Description 12/27/2025 8:45 AM EDT Office Visit [facility] ADULT DENTAL [address] [place] [address] Pili Kathleen [address] [place] [address] documented as of this encounter Visit Diagnoses Not on filedocumented in this encounter Additional Health Concerns Assessment Noted Time PHQ-9 Depression Total Score: 9 03/05/20 25 2:25 PM EDT documented as of this encounter Care Teams Manufacturing Engineering Intern Relationship Specialty Start Date End Date Name, MD Roel [address] [place] [address] PCP - General Family Medicine 10/04/17 documented as of this encounter
--- OUTSIDE RECORDS SUMMARY | 2025-07-17 17:00 | XMS_ITS | Encounter Summary ---
Author Organization [employer] [facility] Address [address] [facility] 7t [place] [address] Care Team Providers Care Arboriculture Teacher Name Role Phone Name, Reol ORTEGA Primary Care Provider [phone] Encounter Details Date Type Department Care Team (Late st Contact Info) Description 03/18/2023 Abstract [facility] [address] [place] [address] Name, MD Roel [address] [place] [address] Social History Tobacco Use Types Packs/Day Years [...] 12/27/2025 8:45 AM EDT Office Visit [facility] [address] [place] [address] Kathleen Alejandre [address] [place] [address] documented as of this encounter Procedures Procedure Name Priority Date/Time Associated Diagnosis Comments COLONOSCOPY Routine 11/14/2018 4:17 PM EST documented in this encounter Results * Hm Colonoscopy (11/14/2018 4:17 PM EST) Colonoscopy Normal Normal Narrative KristalAmi - 11/14/2018 4:17 PM EST Recommended 5 year follow up us Historical Provider HEALTH MAINTENANCE Final Result documented in this encounter Visit Diagnoses Not on filedocumented in this encounter Additional Health Concerns Assessment Noted Time PHQ-9 Depression Total Score: 0 11/03/19 23 8:54 AM EST documented as of this encounter Care Teams Arboriculture Teacher Relationship Specialty Start Date End Date Name, MD Roel [address] [place] [address] PCP - General Family Medicine 10/04/17 documented as of this encounter
--- OUTSIDE RECORDS SUMMARY | 2025-07-17 17:00 | XMS_ITS | Encounter Summary ---
Author Organization [employer] Address [address] [facility] 7t [place] [address] Care Team Providers Care Bar Tacker Name Role Phone NameRoel MD Primary Care Provider [phone] Reason for Visit * Reason Onset Date Comments Results 04/19/2024 Encounter Details Date Type Department Care Team ([facility] st Contact Info) Description 04/19/2024 Telephone [facility] MEDICINE [address] [place], [place] [phone] Name, MD Roel [address] [place] [address] Results Social History Tobacco Use Types Packs/Day [...] Description 12/27/2025 8:45 AM EDT Office Visit [facility] ADULT DENTAL [address] [place] [address] Pili, Kathleen [address] [place] [address] documented as of this encounter Visit Diagnoses Not on filedocumented in this encounter Additional Health Concerns Assessment Noted Time PHQ-9 Depression Total Score: 0 12/31/19 24 10:54 AM EDT documented as of this encounter Care Teams Bar Tacker Relationship Specialty Start Date End Date Name, MD Roel [address] [place] [address] PCP - General Family Medicine 10/04/17 documented as of this encounter
--- OUTSIDE RECORDS SUMMARY | 2025-07-17 17:00 | XMS_ITS | Encounter Summary ---
Author Organization [employer] [facility] Address [address] [place] [address] 7t [place] [address] Care Team Providers Care Traveling Auditor Name Role Phone Name, Roel ORTEGA Primary Care Provider [phone] Encounter Details Date Type Department Care Team (Late st Contact Info) Description 12/18/[address] [facility] ADULT DENTAL [address] [place] [address] Najma Interiano, DDS [address] [place] [address] Social History Tobacco Use Types Packs/Day Years [...] EDT Office Visit [facility] [address] [place] [address] Kathleen Alejandre [address] [place] [address] documented as of this encounter Visit Diagnoses Not on filedocumented in this encounter Additional Health Concerns Assessment Noted Time PHQ-9 Depression Total Score: 0 11/03/19 23 8:54 AM EST documented as of this encounter Care Teams Traveling Auditor Relationship Specialty Start Date End Date Name, MD Roel [address] [place] [address] PCP - General Family Medicine 10/04/17 documented as of this encounter
--- OUTSIDE RECORDS SUMMARY | 2025-07-17 17:00 | XMS_ITS | Encounter Summary ---
Author Organization [employer] Address [address] [facility] 7t [place] [address] Care Team Providers Care Senior Business Broker Name Role Phone Name, Roel ORTEGA Primary Care Provider [phone] Reason for Visit * Reason Comments Med Refill Encounter Details Date Type Department Care Team ([facility] st Contact Info) Description 06/05/2024 Refill [facility] MEDICINE [address] [place], [place] [phone] Name, MD Roel [address] [place] [address] Essential hypertension Social History Tobacco Use Types [...] Description 12/27/2025 8:45 AM EDT Office Visit [facility] ADULT DENTAL [address] [place] [address] Pili, Kathleen [address] [place] [address] documented as of this encounter Visit Diagnoses Diagnosis Essential hypertension Unspecified essential hypertension documented in this encounter Additional Health Concerns Assessment Noted Time PHQ-9 Depression Total Score: 0 12/31/19 24 10:54 AM EDT documented as of this encounter Care Teams Senior Business Broker Relationship Specialty Start Date End Date Name, MD Roel [address] [place] [address] PCP - General Family Medicine 10/04/17 documented as of this encounter
--- OUTSIDE RECORDS SUMMARY | 2025-07-17 17:00 | XMS_ITS | Clinical Summary ---
Author Organization [employer] Address [address] [place] [address] 7t [place] [address] Care Team Providers Care Residential Construction Instructor Name Role Phone Name, Roel ORTEGA Primary Care Provider [phone] Allergies Active Allergy Reactions Criticality Noted Date [...] 05/23/20 18 Active hydrocortisone 1 % cream 11/13/19 22 Active hydroxychloroquine (Plaquenil) 200 MG tablet Take 1 tablet by mouth at bed time. Active insulin lispro (HumaLOG) 100 UNIT/ML injection Ac tive omeprazole (PriLOSEC) [address] capsule Take 1 capsule by mouth at bed time. 05/23/20 18 Active polyvinyl alcohol (Liquifilm Tears) 1.4 % ophthalmic solution 12/17/19 18 Active sertraline (Zoloft) 50 MG tablet Take 1 tablet by mouth at bed time. 10/24/19 20 Active Skin Protectants, Misc. (eucerin) cream 11/13/19 22 Active terbinafine (LamISIL) 1 % [...] 23 Active senna (Senokot) 8.6 MG tablet 10/21/19 23 Active pravastatin (Pravachol) 20 MG tablet Take 20 mg by mouth at bedtime. 10/21/19 23 Active BD Pen Needle Sandy U/F 32G X 4 MM [facility] 10/21/19 23 Active gabapentin (Neurontin) 300 MG [...] pe 2 diabetes mellitus with diabetic 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 (HCC) TEST BLOOD SUGAR FOUR TIMES DAILY 100 each 6 12/22/19 24 Active famotidine (Pepcid) 20 MG tablet 10/28/19 24 Active Continuous Glucose Sensor (FreeStyle Rama 2 Sensor) [facility] 12/22/19 24 Active acetaminophen (Tylenol) 500 MG [...] of breath. 75 mL 1 07/07/20 24 Active Alcohol Swabs (Alcohol Prep) 70 % pads USE THREE TIMES DAILY 100 each 11 11/22/19 25 Active fluticasone furoate (Arnuity Ellipta) 100 [...] tip and replace cap. 48 g 1 11/30/19 25 Active Additional Information Patient not taking.Reported on 04/09/2025 Trulicity 3 MG/0.5ML solution auto-injector 11/22/19 25 Active Toujeo Max SoloStar 300 [...] e 2 diabetes mellitus with diabetic 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 (HCC) INJECT SUBCUTANEOUSLY THREE TIMES DAILY DIRECTED: 4 UNITS WITH MEALS SMALL, 8 UNITS WITH MEALS MEDIANA, 10 UNITS WITH MEALS MELI AND ADDITIONAL 2 UNITS IF BG>200 MG/DL 15 mL 6 12/28/19 25 Active montelukast (Singulair) 10 MG tablet TAKE 1 TABLET BY MOUTH AT BEDTIME 90 tablet 3 12/28/19 25 Active Aspirin Low Dose 81 MG EC tablet TAKE 1 TABLET BY MOUTH EVERY MORNING 90 tablet 3 02/14/20 25 Active enalapril (Vasotec) 20 MG tabletIndications: Essential hypertension TAKE 1 TABLET BY MOUTH AT BEDTIME 90 tablet 3 03/20/20 25 Active D3-1000 25 MCG (1000 UT) capsuleIndications :Type 2 diabetes mellitus with diabetic 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 (HCC) TAKE 2 CAPSULES BY MOUTH ONCE DAILY IN THE MORNING 180 capsule 3 03/20/20 25 Active Ventolin HFA 108 (90 Base) MCG/ACT inhaler INHALE 2 PUFFS BY MOUTH EVERY 6 HOURS NEEDED FOR WHEEZING 18 g 2 04/09/20 25 Active levothyroxine (Synthroid, Levoxyl) 88 MCG tabletIndications: Papillary thyroid carcinoma (CMS/HCC) (HCC) TAKE 1 TABLET BY MOUTH EVERY MORNING 90 tablet 1 05/03/20 25 Active ondansetron (Zofran) 4 MG tabletIndications: Vomiting in adult Take 1 tablet (4 mg) by mouth every 8 (eight) hours if needed for nausea or vomiting for up to 10 doses. 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 ([facility]) Mass of soft tissue of right upper extremity Post-surgical hypothyroidism 04/11/2024 Right wrist pain 04/11/2024 S/P appendectomy 04/11/2024 Tubular adenoma of colon 04/11/2024 Missing teeth, acquired 03/30/2024 Asthma 09/22/2023 09/22/2023 Gastroesophageal reflux disease 09/22/2023 09/22/2023 Seasonal allergic rhinitis 02/19/2023 Dental plaque 02/04/2023 Gingival recession, localized 02/04/2023 Chronic low back pain 09/15/2022 Urinary incontinence 09/15/2022 Papillary thyroid carcinoma ([facility]) 01/15/2021 Overview (02/19/2023): S/p R thyroidectomy Nonproliferative diabetic retinopathy 01/17/2019 Overview (02/09/2024): Follows at [facility] Diabetic 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 11/17/2017 Hypertension 10/04/2017 Diabetes mellitus 10/04/2017 Resolved Problems Problem Noted Date Diagnosed Date Resolved Date Diabetic neuropathy 09/22/2023 09/22/2023 12/24/19 Extrinsic asthma without complication 02/19/2023 12/24/2023 Thyroid nodule 09/15/2022 02/19/2023 Encounters Date Type Department Care Team Description 07/17/2025 3:15 PM EDT Office Visit [facility] [address] [place] [address] NameRoel MD Type 2 diabetes mellitus with other specified complication, with long-term current use of insulin ([facility]) (Primary Dx); Screening for HIV (human immunodeficiency virus); Encounter for immunization 07/17/2025 Travel 07/04/2025 Orders Only [facility] External Provider, [facility] 06/27/2025 10:00 AM EDT Office Visit [facility]ULT [facility] [address] [place] [address] Kathleen Alejandre Excessive attrition of teeth (Primary Dx); Gingival recession, localized; Dental plaque; Missing teeth, acquired 06/12/2025 Refill [facility] [address] [place] [address] Roel Rock MD 05/12/2025 Refill [facility] [address] [place] [phone] Hellen Porter ANP Mild persistent asthma without complication 05/07/2025 10:40 AM EDT Office Visit [facility] [address] [place] [address] Bonnie Payne MD Vomiting in adult (Primary Dx) 05/07/2025 Travel 05/03/2025 Refill [facility] [address] [place] [address] Roel Rock MD Papillary thyroid carcinoma ([facility]) from Last 3 Months Immunizations Immunization Administration Dates Next Due Influenza Injectable Quadriv alant Preservative Free IIV4 MDCK 06/17/2023,07/31/2020 Influenza injectable quadriv alent IIV4 with preservative 07/13/2019,08/17/2018,08/31/2017 Influenza injectable quadriv alent preservative free 07/08/2022,08/06/2021 Influenza, seasonal, injecta ble, preservative free 07/17/2025,06/27/2024 Khanh SARS-CoV-2 Vaccination 01/25/2021 Pfizer Covid-19 Vaccine [...] Mass Index 27.02 07/17/2025 3:17 PM EDT Plan of Treatment Upcoming Encounters Date Type Department Care Team (Late st Contact Info) Description 12/27/2025 8:45 AM EDT Office Visit [facility] [address] [place] [address] Pili, Kathleen [address] [place] [address] Health Maintenance Due Date Last Done Comments [...] 1-dose series) 2024 Diabetes: Foot Exam 12/30/2024 07/17/2025, 07/17/2025, 07/17/2025, Additional history exists SDOH Screening 04/03/2025 04/03/2024 Depression Monitoring 09/05/2025 03/05/2025, 025 Diabetes: Hemoglobin A1C 09/21/2025 025, 11/30/2024, 07/07/2024, Additional history exists Eye Exam 12/14/2025 12/14/2024, 11/19, 12/14/2024, Additional history exists Dental Oral Exam 12/26/2025 06/27/2025, 09/2024, 07/17/2022 Dental Prophylaxis 12/26/2025 06/27/2025, 0 03/30/2024, 02/04/2023 Disability Screening 03/05/2026 03/05/2025 Lipid Panel 03/30/2026 03/30/2025, 02/15, 07/23/2022, Additional history exists Dental X-Ray: Bitewings 06/28/2026 06/27/20 25, 03/30/2024, 12/16/2020 Tobacco Screening 07/17/2026 07/17/2025 Mammogram 03/29/2027 03/29/2025, 06/0 03/2024, 03/16/2023, Additional history exists Dental X-Ray: Full Mouth 03/31/2027 03/30/2024, 10/18 DTaP/Tdap/Td Vaccines (2 - Td or Tdap) 10/04/2027 10/04/2017 Cervical Cancer Screening 01/14/2028 HPV/Cotest 01/14/2028 01/13/2023, 11/30/2019 Pap Smear 01/14/2028 01/13/2023 Zoster Vaccines Completed 03/17/2022, 01/05/2022 Pneumococcal Vaccine: 50+ Years Completed 09/22/2023, 11/17/2017 Hepatitis C Screening Completed 04/17/2024 COVID-19 Vaccine Completed 07/07/2024, 12/2022, 11/04/2022, Additional history exists Influenza Vaccine Completed 07/17/2025, , 06/17/2023, Additional history exists HIB Vaccines Aged Out [...] complication, with long-term current use of insulin ([facility]) US ABDOMEN COMPLETE Routine 07/04/2025 1 0:36 [...] Recently Relevant to Health Maintenance Results * POCT Glucose (07/17/2025 3:19 PM EDT) Glucose Blood, POC 158 60 - 200 mg/dL QC Media Lot # [id number] Lot# Expiration Date Blood Capillary blood specimen / Unknown 07/17/2025 3:19 PM EDT us Roel Rock MD POINT OF CARE TEST ENTER/EDIT OR DERABLES Final Result * US Abdomen Complete (07/04/2025 10:36 AM EDT) Anatomical Region Laterality Modality Abdomen Ultrasound 07/04/2025 10:3 6 AM EDT Narrative 07/04/2025 11:31 AM EDT [address] [address] Ultrasound Report Signed Patient: Lolly Mcginnis MR#: [id number] : 1965 Acct:[id number] Age/Sex: 60 / F ADM Date: 07/04/25 Loc: HO.US Attending Dr: Selena WHITE Ordering Physician: Selena Giang Date of Service: 07/04/25 Procedure(s): US abdomen complete Accession Number(s): [id number] cc: Selena Giang; Name,Roel ORTEGA Reason for [...] 07/04/25 1128 DD/ 1036 TD/TT: 07/04/25 1053 Actuarial Technician: Procedure Note Donotuseinterpreter, Image - 07/04/2025 [place] [address] Ultrasound Report Signed Patient: Lolly Mcginnis MMR#: [id number] : 1965Acct:[id number] Age/Sex: 60 / FADM Date: 07/04/25 Loc: HO.US Attending Dr: Selena WHITE Ordering Physician: Selena Giang Date of Service: 07/04/25 Procedure(s): US abdomen complete Accession Number(s): [id number] cc: Selena Giang; Name,Roel ORTEGA Reason for [...] 07/04/25 1128 DD/ 1036 TD/TT: 07/04/25 1053 Actuarial Technician: [facility] External Provider IMG US PROCEDURES Edited Result - Final * POCT COVID-19 Ag Cabral ID NOW (05/07/2025 10:49 AM EDT) Pathologist [facility] Coronavirus Antigen PCR Negative Negative, Indeterminate, None Detected, Invalid, Specimen unsatisfactory for evaluation, Weakly Positive, 2+ Swab 05/07/2025 10:4 9 AM EDT Bonnie Payne MD POINT OF CARE TEST ENTER /EDIT ORDERABLES Final Result * Lipid Panel, Standard (03/30/2025 8:51 AM EDT) Triglycerides 58 <150 mg/dL [facility] Comment:Desirable Triglyceri de: less than 150 mg/dLBorderline High Triglyceride 150-199 mg/dLHigh Triglyceride: 200-499 mg/dLVery High Triglyceride: greater than or equal to 5OO mg/dL Cholesterol 167 <200 mg/dL [facility] Comment:Desirable Cholestero l: less than 200 mg/dLBorderline High Cholesterol: 200-239 mg/dLHigh Cholesterol: greater than 239 mg/dL LDL Cholesterol Calculated 91 <100 mg/dL [facility] Comment:Desirable LDL: less than 100 mg/dLNear Optimal/Above Optimal LDL: 110- 129 mg/dLBorderline High LDL: 130-159 mg/dLHigh LDL: 160-189 mg/dLVery High LDL: greater than or equal to 190 mg/dL HDL Cholesterol 65 >40 mg/dL [facility] Comment:Desirable HDL: great er than 40 mg/dL Note: This HDL assay may give artificially low results in patients with liver disease. Blood Venous blood specimen / Unknown 03/30/2025 8:51 AM EDT 03/30/2025 11:04 AM EDT us Roel Rock MD LAB BLOOD ORDERABLES Final Resul t [facility] [address] [place] [phone] [phone] * BI Mammogram Screening Tomosynthesis Bilateral (03/29/2025 2:44 PM EDT) Anatomical Region Laterality Modality Breast Bilateral Mammography 03/29/2025 2:44 PM EDT Narrative 04/07/2025 10:52 AM EDT [address] [place] [address] Mammography Report Signed Patient: Lolly Mcginnis MR#: M [id number] : 1965 Acct:[id number] Age/Sex: 60 / F ADM Date: 03/29/25 Loc: HO.MAMMO Attending Dr: Roel Rock MD Ordering Physician: Roel Rock MD Results: 1Negative Date of Service: 03/29/25 Follow Up: 1 Year From Orig inal Mammogram Procedure(s): MM tomosynthesis screening BI Accession Number(s): [id number] cc: Roel Rock MD EXAMINATION: MM SCREENING [...] 04/07/25 1048 DD/ 1444 TD/TT: 03/29/25 1457 Actuarial Technician: Procedure Note Donotuseinterpreter, Image - [facility]/07/20[facility] [address] [place] [address] Mammography Report Signed Patient: Lolly Mcginnis MMR#: M [id number] : 1965Acct:[id number] Age/Sex: 60 / FADM Date: 03/29/25 Loc: HO.MAMMO Attending Dr: Roel Rock MD Ordering Physician: Roel Rockesults: 1Negative Date of Service: 03/29/25Follow Up: 1 Year From Orig inal Mammogram Procedure(s): MM tomosynthesis screening BI Accession Number(s): [id number] cc: Roel Rock MD EXAMINATION: MM SCREENING [...] 04/07/25 1048 DD/ 1444 TD/TT: 03/29/25 1457 Actuarial Technician: us Roel Name IMG BI PROCEDURES Edited Result - Final * (ABNORMAL) Hemoglobin A1c (03/22/2025 1:26 PM EDT) Hemoglobin A1c 6.6(H) <6.0 % [facility] Comment:Hemoglobin A1C Refer ence Range Adults: 4.8 - 6.0 % Non diabetic: < 6.0 % Goal: < 7.0 %Additional Action Suggested: > 8.0 %Note: Hemoglobin A1c results are invalid for patients with abnormal amounts of HbF. Blood transfusions may impact the HbA1c concentration in the patient sample. Estimated Average Glucose 143 mg/dL [facility] Comment:eAG = Estimated ave rage glucose which is %A1C expressed asaverage glucose, using the formula of the P2I-PnyjbuyXupmblk Glucose study (ADAG), Diabetes Care, Vol.31,#8,May. 2007 03/22/2025 1:26 PM EDT 03/22/2025 1:26 PM EDT us Generic External Data Provider LAB BLOOD ORDERAB LES Final Result Performing Organization Address [facility]/ZIP Co de Phone Number [facility] [address] [place] [phone] * Hepatitis C Antibody with Reflex to HCV, RNA, Quantitative, Real-Time PCR (04/17/2024 11:32 AM EDT) Hepatitis C Antibody Nonreactive Nonreactive [facility] Comment:Antibodies to HCV no t detected; does not exclude early acuteHCV infection. Blood Venous blood specimen / Unknown 04/17/2024 11:32 AM EDT 04/17/2024 1:13 PM EDT us Role Rock MD LAB BLOOD ORDERABLES Final Resul t Performing Organization Address [facility]/ZIP Co de Phone Number [facility] [address] [place] [phone] * Albumin, Random Urine W/Creatinine (02/26/2023 8:39 AM EDT) Creatinine, Random Urine 142 20 - 275 mg/dL [employer] [facility] [employer] Albumin, Urine 1.9 See Note: mg/dL [facility] Comment: Reference Range: Reference Range Not established Albumin/Creatinin e Ratio, Random Urine 13 <30 mcg/mg creat [facility] Comment: The ADA defines abnormalities in albumin [...] AM EDT 02/26/2023 8:40 AM EDT Narrative [facility] - 02/26/2023 10:35 PM EDT FASTING:YES FASTING: YES us Roelgela Rock MD LAB URINE ORDERABLES Final Resul t [facility] [address] [place] [address] [employer] [facility] [employer] [address] [place] [address] * Image-Guided Pap with Age-Based Screening Protocols (01/13/2023 11:48 AM EDT) Comment [employer] [facility] [employer] Comment: This order for age-based cervical cancer and STI screening follows ACOG guidelines(PB 168, 140, OBI043). See individual assays for performing site location. Clinical Information: None given [facility] LMP: NONE GIVEN [employer] [facility] Prev. PAP: NONE GIVEN [employer] [facility] Prev. BX: NONE GIVEN [employer] SOURCE: None given [employer] Statement Of Adequacy: SATISFACTORY FOR EVALUATION [employer] [facility] [employer] Interpretation/Re sult: [facility] Comment: Negative for intraepithelial lesion or malignancy. Atrophic pattern; predominantly parabasal cells COMMENT: This Pap test has been evaluated with computer assisted technology. [employer] [place] [email or web address] Arborist Representative: Arie callaway [employer] [place] [email or web address] Comment: SXA, CT(ASCP) CT screening location: [address] [address] (Always Message) [facility] Comment: EXPLANATORY NOTE: The Pap is a [...] HPV nRNA E6/E7 Not Detected Not Detected [employer] Comment: Methodology: Planer Mill Grader-Mediated Amplification This assay detects E6/E7 viral messenger RNA (mRNA) from 14 high-risk HPV types (16,18,31,33,35,39,45,51,52,56,58,59,66,68). Cervical sources are required for HPV testing. If a vaginal source from a patient who has had a total hysterectomy with removal of cervix was submitted, please contact the testing laboratory for alternative testing options. For additional information, please refer to http://education.Mogotest/faq/PQL594t9 (This link if provided for information/ educational purposes only.) Cytology specimen container (physical object) 01/13/2023 11:48 AM EDT 01/14/2023 2:03 AM EDT Erica Joseph CNM LAB BLOOD ORDERABLES Janis l Result [address], [facility], [place] [address] [employer] [facility] [address] [place] [phone] * Hm Colonoscopy (11/14/2018 4:17 PM EST) Colonoscopy Normal Normal Narrative Ami Giraldo - 11/14/2018 4:17 PM EST Recommended 5 year follow up Historical Provider HEALTH MAINTENANCE Final Result from Last 3 Months or Most Recently Relevant to Health Maintenance Insurance [place] [facility] MEDICAID STAND ADULT Care Teams Residential Construction Instructor Relationship Specialty Start Date End Date Name, MD Roel [address] [place] [address] PCP - General Family Medicine 10/04/17
--- OUTSIDE RECORDS SUMMARY | 2025-07-17 17:01 | XMS_ITS | Encounter Summary ---
Author Organization [employer] Address [address] [facility] 7t [place] [address] Care Team Providers Care Weather Reporter Name Role Phone Name, Roel ORTEGA Primary Care Provider Encounter Details Date Type Department Care Team ([facility] st Contact Info) Description 07/06/2023 Telephone [facility] [address] [place], [place] [phone] Name, MD Roel [address] [place] [address] Social History Tobacco Use Types Packs/Day Years [...] letter to schedule f/u appointment with coleen. Cooling Tower Technician does not see any documentation on letter or recall. Please contact pt at [phone] (Chinese) documented in this encounter Plan of Treatment Upcoming Encounters Date Type Department Care Team (Late st Contact Info) Description 12/27/2025 8:45 AM EDT Office Visit [facility] AD[facility] [address] [place] [address] Jesse Alejandrearis [address] [place] [address] documented as of this encounter Visit Diagnoses Not on filedocumented in this encounter Additional Health Concerns Assessment Noted Time PHQ-9 Depression Total Score: 0 11/03/19 8:54 AM EST documented as of this encounter Care Teams Weather Reporter Relationship Specialty Start Date End Date Name, MD Roel [address] [place] [address] PCP - General Family Medicine 10/04/17 documented as of this encounter
--- OUTSIDE RECORDS SUMMARY | 2025-07-17 17:01 | XMS_ITS | Encounter Summary ---
Author Organization [employer] [facility] Address [address] [place] [address] [address] [place] [address] Care Team Providers Care Architectural Engineering Teacher Name Role Phone Name, Roel ORTEGA Primary Care Provider [phone] Encounter Details Date Type Department Care Team (Late st Contact Info) Description 09/15/2022 Abstract [facility] [address] [place] [address] Dental, Provider, DDS Social History Tobacco Use [...] Description 12/27/2025 8:45 AM EDT Office Visit [facility] [address] [place] [address] PiliKathleen [address] [place] [address] documented as of this encounter Visit Diagnoses Not on filedocumented in this encounter Care Teams Architectural Engineering Teacher Relationship Specialty Start Date End Date Name, MD Roel [address] [place] [address] PCP - General Family Medicine 10/04/17 documented as of this encounter
--- OUTSIDE RECORDS SUMMARY | 2025-07-17 17:01 | XMS_ITS | Encounter Summary ---
Author Organization [employer] Address [address] [facility] [address]t [place] [address] Care Team Providers Care Artificial Limb Maker Name Role Phone NameRoel MD Primary Care Provider [phone] Reason for Visit * Reason Onset Date Comments Appointment Request 12/09/2023 Encounter Details Date Type Department Care Team ([facility] st Contact Info) Description 12/09/2023 Telephone [facility] [address] [place], [place] [phone] Name, MD Roel [address] [place] [address] Appointment Request Social History Tobacco Use Types [...] Description 12/27/2025 8:45 AM EDT Office Visit [facility] [address] [place] [address] Kathleen Alejandre [address] [place] [address] documented as of this encounter Visit Diagnoses Not on filedocumented in this encounter Additional Health Concerns Assessment Noted Time PHQ-9 Depression Total Score: 0 11/03/19 23 8:54 AM EST documented as of this encounter Care Teams Artificial Limb Maker Relationship Specialty Start Date End Date Name, MD Roel [address] [place] [address] PCP - General Family Medicine 10/04/17 documented as of this encounter
--- OUTSIDE RECORDS SUMMARY | 2025-07-17 17:01 | XMS_ITS | Encounter Summary ---
Author Organization [employer] [facility] Address [address] [place] [address] [address] [place] [address] Care Team Providers Care Staff Command And Control Officer Name Role Phone Name, Roel ORTEGA Primary Care Provider [phone] Encounter Details Date Type Department Care Team (Latest Contact Info) Description 12/20/2020 Abstract [facility] CON[facility]S Dental, Provider, DDS Social History [...] Description 12/27/2025 8:45 AM EDT Office Visit [facility] AD[facility] [address] [place] [address] Pili, Kathleen [address] [place] [address] documented as of this encounter Visit Diagnoses Not on filedocumented in this encounter Care Teams Staff Command And Control Officer Relationship Specialty Start Date End Date Name, MD Roel [address] [place] [address] PCP - General Family Medicine 10/04/17 documented as of this encounter
[2025-07-17 18:49] LABS: Microalbum/Creatinine Ratio Ur 24.0 ug/mg cr (<30)
[2025-07-18 05:38] LABS: HIV Num 1 0.04 S/CO (0.00-0.99)
== END 2025-07-17 15:54 | disposition home or self-care (01) ==
LOC: HO.HHCL 15:53
PROVIDERS: Internal Medicine; PCP Internal Medicine Geriatric Medicine; Visit Provider Internal Medicine Geriatric Medicine
DX: Z11.4 Encounter for screening for human immunodeficiency virus [HIV] (principal); E11.69 Type 2 diabetes mellitus with other specified complication; E11.42 Type 2 diabetes mellitus with diabetic 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; E03.9 Hypothyroidism, unspecified; Z79.4 Long term (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 of insulin
CPT/HCPCS: 36415; 82043; 82570; 83036; 84443; 87389

== ENCOUNTER 2025-08-02 08:21 | Outpatient (AMB) | payer MEDICAID, SELFPAY ==
[2025-08-02 08:27] VITALS: BP 120/64; PULSE 82; O2SAT 98; BMI 26.2
--- NOTE | 2025-08-02 08:27 | A.OFFVIS_ITS ---
Vital Signs 08/02/25 08:27 Height 5 ft 2 in Weight 143 lb 4.807 oz BMI 26.2 BP 120/64 Blood Pressure Location Rt brachial Position Sitting Pulse 82 Pulse Source Pulse Oximeter Pulse Oximetry (%) 98 Oxygen Delivery Method Room Air Intake Visit Reasons: T2DM Intake Note: Patient presents today for a follow-up on Type 2 Diabetes Mellitus: Last Diabetic Eye Exam: 06/2025, [facility] Last Podiatry Exam: Does not see a Steel Rule Die Maker Apprentice Most recent HbA1c: 7.3%, 07/17/2025 Random Glucose- 194 mg/dL, Today Maintenance Technician 3Rd Shift Required: Yes Maintenance Technician 3Rd Shift Language: Base Filler Services: Maintenance Technician 3Rd Shift Present Maintenance Technician 3Rd Shift Name: RAJEEV Fernández Accompanied by: Self / Same As Patient Allergies metformin Adverse Reaction (Mild, Verified 08/02/25 08:29) stomach upset HPI Comments Details: Patient is 60 yo female with DM type 2 diagnosed around 2004 who presents for continued management of diabetes. Past Medical History includes: hypertension, HLD arthritis, depression, uninodular goiter s/p thyroidectomy with papillary microcarcinoma), gastroparesis Current diabetes medications include: Metformin 250mg daily (intolerant higher doses) Jardiance 25 mg Actos 30mg, Truilcity 3mg, Toujeo 36 units Humalog currently 4 small meals, 8 units for medium meals and 12 units for a large meal = 2 units if BG>200 TIDcc Micro and Macro Vascular Complications: neuropathy, +alb/cr, retinopathy, gastroparesis A1C 7.3 07/17/25 Blood Glucose Monitoring: Rama download GMI 7.0% TGT 72 % 27% high 1% low. Lows are between noon and 6pm Eye Exam-06/2025 undergoing VEGF treatment for retinopathy No podiatry. +mild neuropathy well managed on gabapentin On levothyroxine 88 ug QD for post-surgical hypothyroidism for papillary microcarcinoma. Last TSH 0.49 ROS CONSTITUTIONAL: Denies weight loss, fever and chills. HEENT: Denies changes in vision and hearing. RESPIRATORY: Denies SOB and cough. CV: Denies palpitations and CP GI: Denies abdominal pain, nausea, vomiting and diarrhea. : Denies dysuria and urinary frequency. MSK: Denies new myalgia and joint pain. SKIN: Denies rash and pruritus. NEUROLOGICAL: Denies headache PSYCHIATRIC: Denies recent changes in mood. PHYSICAL EXAM: GENERAL: Alert and oriented x 3. NAD EYES: EOMI. Anicteric. HENT: Moist mucous membranes. No scleral icterus. No cervical lymphadenopathy. LUNGS: Clear to auscultation bilaterally. CARDIOVASCULAR: Regular rate and rhythm. . ABDOMEN: Soft, non-tender +bs EXTREMITIES: No edema. Non-tender. 2+DP pulses SKIN: No rashes or lesions. Warm. NEUROLOGIC: No focal neurological deficits. CN II-XII grossly intact PSYCHIATRIC: Cooperative. Appropriate mood and affect [facility] Medical History Left shoulder pain Esophageal spasm Right wrist pain Mass of soft tissue of right upper extremity Difficulty swallowing Asthma Neuropathy Mild pulmonary hypertension Atypical chest pain Venous insufficiency Diabetic retinopathy associated with type 2 diabetes mellitus Diabetic 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 associated with type 2 diabetes mellitus halfway (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 of insulin Papillary microcarcinoma of thyroid Gastroparesis Post-surgical hypothyroidism Gallstones Uninodular goiter Arthritis Retinopathy Depression Diabetes mellitus with hyperglycemia Type 2 diabetes mellitus with diabetic neuropathy, unspecified Hyperlipidemia LDL goal <100 Essential hypertension Vitamin D deficiency Surgical History S/P appendectomy Hx of tubal ligation Hx of appendectomy History of bladder surgery H/O colonoscopy H/O thyroidectomy Hx of eye surgery History of esophagogastroduodenoscopy (EGD) History of cholecystectomy Family History Father No problems noted. Mother Diabetes mellitus Daughter Diabetes mellitus Social History Household Members: Family Housing: House Are you a primary summer child caregiver to a significant other at home: No Do you presently have visiting nurse or other home services: No Alcohol intake: current Alcohol intake frequency: does not drink Comment: rings appropriately Patient Tobacco Use Status: Never used Tobacco Second Hand Smoke Exposure: No service: No Current occupational status: disabled Current occupation: right handed Female Reproductive History Menstrual Age of Menarche: 8 Physical Exam Vital Signs: Last Vital Signs Pulse 82 08/02/25 08:27 BP 120/64 08/02/25 08:27 Pulse Ox 98 08/02/25 08:27 Oxygen Delivery Method Room Air 08/02/25 08:27 BMI result Body Mass Index 26.2 Results Reviewed Results Reviewed: Laboratory Last Values Glucose (Clinic) 194 mg/dL (60-115) H 08/02/25 08:33 Assessment & Plan Assessment & Plan (1) Type 2 diabetes mellitus with diabetic neuropathy, unspecified: Code(s): E11.40 - Type 2 diabetes mellitus with diabetic neuropathy, unspecified Category: Medical Qualifiers: Diabetes mellitus automobile rental agent insulin use: with intermediate use Qualified Code(s): E11.40 - Type 2 diabetes mellitus with diabetic neuropathy, unspecified; Z79.4 - halfway (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 of insulin (2) Diabetes mellitus with hyperglycemia: Code(s): E11.65 - Type 2 diabetes mellitus with hyperglycemia Category: Medical Qualifiers: Diabetes mellitus type: type 2 Diabetes mellitus automobile rental agent insulin use: with intermediate use Qualified Code(s): E11.65 - Type 2 diabetes mellitus with hyperglycemia; Z79.4 - halfway (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 of insulin Plan Type 2 diabetes, slightly suboptimal Some after lunch hypoglycemia-decrease to 6 units for Increase trulicity to 4.5mg daily Continue other medications as prescribed Treat hypoglycemia by rules of 15s Post surgical hypothyroid-TSH at goal Return in 3 months or sooner as neded Medications: New dulaglutide (Trulicity) 4.5 mg (0.5 mL) subcut QWEEK 6 mL 3RF Changed From insulin aspart U-100 4 units small meals, 8 medium meals and 10 units large meals, + 2 units for bg over 200 subcut 3 times a day; subcut 3 times a day; 30 days 15 mL 6RF To insulin aspart U-100 Take 8 units before/with breakfast Take 6 units before/with lunch Take 8 units before/with dinner 15 mL 6RF 30 days Discontinued dulaglutide (Trulicity) Discontinued Reason: Doctor's Order 3 mg (0.5 mL) subcut QWEEK 6 mL 3RF Coding Level of Care Code Est Pt Level 4 (45712) Diagnoses Type 2 diabetes mellitus with diabetic neuropathy, with long-term current use of insulin E11.40; Z79.4 Diabetes mellitus intermediate insulin use: with automobile rental agent use Type 2 diabetes mellitus with hyperglycemia, with long-term current use of insulin E11.65; Z79.4 Diabetes mellitus type: type 2 Diabetes mellitus intermediate insulin use: with intermediate use
--- OUTSIDE RECORDS SUMMARY | 2025-08-02 08:35 | XMS_ITS | Encounter Summary ---
Author Organization [employer] Address [address] [facility] 7t [place] [address] Care Team Providers Care Manager Intranet Name Role Phone Name, Roel ORTEGA Primary Care Provider [phone] Encounter Details Date Type Department Care Team ([facility] Contact Info) Description 07/18/2025 Results Follow-Up [facility] MEDICINE [address] [place] [address] Name, MD Roel [address] [place] [address] POCT Glucose, Albumin, Random Urine W/Creatinine, HIV-1/2 Antigen and Antibodies, Fourth Generation, with Reflexes Social History Tobacco Use Types Packs/Day Years [...] Description 12/27/2025 8:45 AM EDT Office Visit [facility] ADULT DENTAL [address] [place] [address] Pili, Kathleen [address] [place] [address] documented as of this encounter Visit Diagnoses Not on filedocumented in this encounter Additional Health Concerns Assessment Noted Time PHQ-9 Depression Total Score: 9 03/05/20 25 2:25 PM EDT documented as of this encounter Care Teams Manager Intranet Relationship Specialty Start Date End Date Name, MD Roel [address] [place] [address] PCP - General Family Medicine 10/04/17 documented as of this encounter
--- OUTSIDE RECORDS SUMMARY | 2025-08-02 08:35 | XMS_ITS | Encounter Summary ---
Author Organization [employer] [facility] Address [address] [facility] 7t [place] [address] Care Team Providers Care Processing Manager Name Role Phone Name, Roel ORTEGA Primary Care Provider [phone] Encounter Details Date Type Department Care Team (Late st Contact Info) Description 03/18/2023 Abstract [facility] MEDICINE [address] [place] [address] Name, MD Roel [address] [place] [address] Social History Tobacco Use Types Packs/Day Years [...] Description 12/27/2025 8:45 AM EDT Office Visit [facility] ADULT DENTAL [address] [place] [address] Kathleen Alejandre [address] [place] [address] documented as of this encounter Procedures Procedure [...] documented as of this encounter Care Teams Processing Manager Relationship Specialty Start Date End Date Name, MD Roel [address] [place] [address] PCP - General Family Medicine 10/04/17 documented as of this encounter
--- OUTSIDE RECORDS SUMMARY | 2025-08-02 08:35 | XMS_ITS | Encounter Summary ---
Author Organization [employer] [facility] Address [address] [place] [address] 7t [place] [address] Care Team Providers Care Energy And Sustainability Manager Name Role Phone Name, Roel ORTEGA Primary Care Provider [phone] Encounter Details Date Type Department Care Team (Late Contact Info) Description 12/18/2022 Abstract [facility] ADULT DENTAL [address] [place] [address] Najma Interiano, DDS [address] [place] [address] Social History Tobacco Use Types Packs/Day Years [...] EDT Office Visit [facility] ADULT [facility]ENTAL [address] [place] [address] Kathleen Alejandre [address] [place] [address] documented as of this encounter Visit Diagnoses Not on filedocumented in this encounter Additional Health Concerns Assessment Noted Time PHQ-9 Depression Total Score: 0 11/03/19 23 8:54 AM EST documented as of this encounter Care Teams Energy And Sustainability Manager Relationship Specialty Start Date End Date Name, MD Roel [address] [place] [address] PCP - General Family Medicine 10/04/17 documented as of this encounter
--- OUTSIDE RECORDS SUMMARY | 2025-08-02 08:35 | XMS_ITS | Encounter Summary ---
Author Organization [employer] [facility] Address [address] [facility] [address] [place] [address] Care Team Providers Care Magnet Maker Name Role Phone Name, Roel ORTEGA Primary Care Provider [phone] Encounter Details Date Type Department Care Team (Late st Contact Info) Description 03/19/2023 Abstract [facility] MEDICINE [address] [place] [address] Name, MD Roel [address] [place] [address] Social History Tobacco Use Types Packs/Day Years [...] Description 12/27/2025 8:45 AM EDT Office Visit [facility] ADULT DENTAL [address] [place] [address] Kathleen Alejandre [address] [place] [address] documented as of this encounter Visit Diagnoses Not on filedocumented in this encounter Additional Health Concerns Assessment Noted Time PHQ-9 Depression Total Score: 0 11/03/19 23 8:54 AM EST documented as of this encounter Care Teams Magnet Maker Relationship Specialty Start Date End Date Name, MD Roel [address] [place] [address] PCP - General Family Medicine 10/04/17 documented as of this encounter
--- OUTSIDE RECORDS SUMMARY | 2025-08-02 08:35 | XMS_ITS | Encounter Summary ---
Author Organization [employer] Address [address] [facility] 7t [place] [address] Care Team Providers Care Human Resources Assistant Manager Name Role Phone NameRoel MD Primary Care Provider [phone] Reason for Visit * Reason Onset Date Comments Results 04/19/2024 Encounter Details Date Type Department Care Team ([facility] st Contact Info) Description 04/19/2024 Telephone [facility] MEDICINE [address] [place], [place] [id number] Name, MD Roel [address] [place] [address] Results Social History Tobacco Use Types Packs/Day [...] Description 12/27/2025 8:45 AM EDT Office Visit [facility] ADULT DENTAL [address] [place] [address] Pili, Kathleen [address] [place] [address] documented as of this encounter Visit Diagnoses Not on filedocumented in this encounter Additional Health Concerns Assessment Noted Time PHQ-9 Depression Total Score: 0 12/31/19 24 10:54 AM EDT documented as of this encounter Care Teams Human Resources Assistant Manager Relationship Specialty Start Date End Date Name, MD Roel [address] [place] [address] PCP - General Family Medicine 10/04/17 documented as of this encounter
--- OUTSIDE RECORDS SUMMARY | 2025-08-02 08:35 | XMS_ITS | Encounter Summary ---
Author Organization [employer] Address [address] [facility] 7t [place] [address] Care Team Providers Care Glass Artist Name Role Phone Name, Roel ORTEGA Primary Care Provider [phone] Reason for Visit * Reason Comments Med Refill Encounter Details Date Type Department Care Team ([facility] st Contact Info) Description 06/05/2024 Refill [facility] MEDICINE [address] [place], [place] [phone] Name, MD Roel [address] [place] [address] Essential hypertension Social History Tobacco Use Types [...] 8:45 AM EDT Office Visit [facility] ADULT DENTAL [address] [place] [address] Pili, Kathleen [address] [place] [address] documented as of this encounter Visit Diagnoses Diagnosis Essential hypertension Unspecified essential hypertension documented in this encounter Additional Health Concerns Assessment Noted Time PHQ-9 Depression Total Score: 0 12/31/19 24 10:54 AM EDT documented as of this encounter Care Teams Glass Artist Relationship Specialty Start Date End Date Name, MD Roel [address] [place] [address] PCP - General Family Medicine 10/04/17 documented as of this encounter
--- OUTSIDE RECORDS SUMMARY | 2025-08-02 08:35 | XMS_ITS | Encounter Summary ---
Author Organization [employer] Address [address] [facility] [address] [place] [address] Care Team Providers Care Float Tender Name Role Phone Name, Roel ORTEGA Primary Care Provider [phone] Reason for Visit * Reason Comments Med Refill Encounter Details Date Type Department Care Team ([facility] st Contact Info) Description 05/12/2025 Refill [facility] MEDICINE [address] [place] [address] Hellen Porter, ANP [address] [place] [address] Mild persistent asthma without complication Social History [...] Description 12/27/2025 8:45 AM EDT Office Visit [facility] ADULT DENTAL [address] [place] [address] Jesse Alejandrearis [address] [place] [address] documented as of this encounter Visit Diagnoses Diagnosis Mild persistent asthma without complication documented in this encounter Additional Health Concerns Assessment Noted Time PHQ-9 Depression Total Score: 9 03/05/20 25 2:25 PM EDT documented as of this encounter Care Teams Float Tender Relationship Specialty Start Date End Date Name, MD Roel [address] [place] [address] PCP - General Family Medicine 10/04/17 documented as of this encounter
[2025-08-02 08:36] LABS: Glucose, Whole Blood 194 mg/dL (60-115)
--- OUTSIDE RECORDS SUMMARY | 2025-08-02 08:36 | XMS_ITS | Encounter Summary ---
Author Organization [employer] [facility] Address [address] [place] [address] 7t [place] [address] Care Team Providers Care Order Booker Name Role Phone Name, Roel ORTEGA Primary Care Provider Encounter Details Date Type Department Care Team (Latest Contact Info) Description 12/20/2020 Abstract [facility] CONVERSIONS Dental, Provider, DDS Social History [...] Description 12/27/2025 8:45 AM EDT Office Visit [facility] ADULT DENTAL [address] [place] [address] Pili, Kathleen [address] [place] [address] documented as of this encounter Visit Diagnoses Not on filedocumented in this encounter Care Teams Order Booker Relationship Specialty Start Date End Date Name, MD Roel [address] [place] [address] PCP - General Family Medicine 10/04/17 documented as of this encounter
--- OUTSIDE RECORDS SUMMARY | 2025-08-02 08:36 | XMS_ITS | Encounter Summary ---
Author Organization [employer] Address [address] [facility] 7t [place] [address] Care Team Providers Care Environmental Compliance Specialist Name Role Phone Name, Roel ORTEGA Primary Care Provider [phone] Encounter Details Date Type Department Care Team ([facility] st Contact Info) Description 07/06/2023 Telephone [facility] MEDICINE [address] [place], [place] [phone] Name, MD Roel [address] [place] [address] Social History Tobacco Use Types Packs/Day Years [...] letter to schedule f/u appointment with coleen. Alligator Shear Operator does not see any documentation on letter or recall. Please contact pt at [phone] (Samoan) documented in this encounter Plan of Treatment Upcoming Encounters Date Type Department Care Team (Late st Contact Info) Description 12/27/2025 8:45 AM EDT Office Visit [facility] ADULT DENTAL [address] [place] [address] Jesse Alejandrearis [address] [place] [address] documented as of this encounter Visit Diagnoses Not on filedocumented in this encounter Additional Health Concerns Assessment Noted Time PHQ-9 Depression Total Score: 0 11/03/19 8:54 AM EST documented as of this encounter Care Teams Environmental Compliance Specialist Relationship Specialty Start Date End Date Name, MD Roel [address] [place] [address] PCP - General Family Medicine 10/04/17 documented as of this encounter
--- OUTSIDE RECORDS SUMMARY | 2025-08-02 08:36 | XMS_ITS | Encounter Summary ---
Author Organization [employer] [facility] Address [address] [place] [address] 7t [place] [address] Care Team Providers Care Police Commissioner Name Role Phone Name, Roel ORTEGA Primary Care Provider [phone] Encounter Details Date Type Department Care Team (Late st Contact Info) Description 09/15/2022 Abstract [facility] ADULT DENTAL [address] [place] [address] Dental, Provider, DDS Social History Tobacco Use [...] 12/27/2025 8:45 AM EDT Office Visit [facility] ADULT DENTAL [address] [place] [address] PiliKathleen [address] [place] [address] documented as of this encounter Visit Diagnoses Not on filedocumented in this encounter Care Teams Police Commissioner Relationship Specialty Start Date End Date Name, MD Roel [address] [place] [address] PCP - General Family Medicine 10/04/17 documented as of this encounter
--- OUTSIDE RECORDS SUMMARY | 2025-08-02 08:36 | XMS_ITS | Clinical Summary ---
Author Organization [employer] Address [address] [place] [address] 7t [place] [address] Care Team Providers Care Active Directory Architect Name Role Phone Name, Roel ORTEGA Primary Care Provider [phone] Allergies Active Allergy Reactions Criticality Noted Date [...] Needle Sandy U/F 32G X 4 MM [facility] Active gabapentin (Neurontin) 300 MG capsule Take [...] ype 2 diabetes mellitus with diabetic 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 (HCC) TEST BLOOD SUGAR FOUR TIMES DAILY 100 each 6 Active famotidine (Pepcid) 20 MG tablet Active Continuous Glucose Sensor (FreeStyle Rama 2 Sensor) [facility] Active acetaminophen (Tylenol) 500 MG tablet Take [...] Do not swallow. 1 each 2025 Active Trulicity 3 MG/0.5ML solution auto-injector 025 [...] s:Type 2 diabetes mellitus with diabetic 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 (HCC) TAKE 2 CAPSULES BY MOUTH ONCE DAILY IN THE MORNING 180 capsule 3 025 Active Ventolin HFA 108 (90 Base) MCG/ACT inhaler INHALE 2 PUFFS BY MOUTH EVERY 6 HOURS NEEDED FOR WHEEZING 18 g 2 025 Active levothyroxine (Synthroid, Levoxyl) 88 MCG tabletIndications :Papillary thyroid carcinoma (CMS/HCC) (HCC) TAKE 1 TABLET [...] WITH FOOD 45 tablet 1 025 Active fluticasone (Flonase) 50 MCG/ACT nasal spray INSTILL 2 SPRAYS IN EACH NOSTRIL ONCE DAILY 48 g 1 025 Active fluticasone (Flonase) 50 MCG/ACT nasal spray Administer 2 sprays into each nostril Once per day. Shake gently. Before first use, prime pump. After use, clean tip and replace cap. 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 ([facility]) Mass of soft tissue of right upper extremity Post-surgical hypothyroidism 04/11/2024 Right wrist pain 04/11/2024 S/P appendectomy 04/11/2024 Tubular adenoma of colon 04/11/2024 Missing teeth, acquired 03/30/2024 Asthma 09/22/2023 09/22/2023 Gastroesophageal reflux disease 09/22/2023 09/22/2023 Seasonal allergic rhinitis 02/19/2023 Dental plaque 02/04/2023 Gingival recession, localized 02/04/2023 Chronic low back pain 09/15/2022 Urinary incontinence 09/15/2022 Papillary thyroid carcinoma ([facility]) 01/15/2021 Overview (02/19/2023): S/p R thyroidectomy Nonproliferative diabetic retinopathy 01/17/2019 Overview (02/09/2024): Follows at [facility] Diabetic 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 11/17/2017 Hypertension 10/04/2017 Diabetes mellitus 10/04/2017 Resolved Problems Problem Noted Date Diagnosed Date Resolved Date Diabetic neuropathy 09/22/2023 09/22/2023 12/24/19 Extrinsic asthma without complication 02/19/2023 12/24/2023 Thyroid nodule 09/15/2022 02/19/2023 Encounters Date Type Department Care Team Description 07/23/2025 Refill [facility] MEDICINE [address] [place] [address] Roel Rock MD 07/18/2025 Results Follow-Up [facility] [address] [place] [address] Roel oRck MD POCT Glucose, Albumin, Random Urine W/Creatinine, HIV-1/2 Antigen and Antibodies, Fourth Generation, with Reflexes 07/17/2025 3:15 PM EDT Office Visit [facility] MED[facility] [address] [place] [address] Roel Rock MD Type 2 diabetes mellitus with other specified complication, with long-term current use of insulin ([facility]) (Primary Dx); Screening for HIV (human immunodeficiency virus); Encounter for immunization 07/17/2025 Orders Only GENERIC EXTERNAL DATA DEPARTMENT Provider, Generic External Data 07/17/2025 Travel 07/04/2025 Orders Only [facility] External Provider, [facility] 06/27/2025 10:00 AM EDT Office Visit [facility] ADULT DENTAL [address] [place] [address] Kathleen Alejandre Excessive attrition of teeth (Primary Dx); Gingival recession, localized; Dental plaque; Missing teeth, acquired 06/12/2025 Refill [facility] [address] [place] [address] Roel Rock MD 05/12/2025 Refill [facility] [address] [place] [address] Hellen Porter ANP Mild persistent asthma without complication 05/07/2025 10:40 AM EDT Office Visit [facility] [address] [place] [address] Bonnie Payne MD Vomiting in adult (Primary Dx) 05/07/2025 Travel 05/03/2025 Refill [facility] MED[facility]INE [address] [place] [address] Roel Rock MD Papillary thyroid carcinoma ([facility]/HCC) from Last 3 Months Immunizations Immunization Administration [...] Description 12/27/2025 8:45 AM EDT Office Visit [facility] ADULT DENTAL [address] [place] [address] PiliJesseKathleen [address] [place] [address] Health Maintenance Due Date Last Done Comments CT Colonography 1965 FIT DNA/Cologuard 1965 FIT 1965 FOBT 1965 Sigmoidoscopy 1965 Alcohol/Substance Use Screening 1976 Colonoscopy 11/14/2023 11/14/2018 Colorectal Cancer Screening 11/14/2023 RSV Patients and Patients Aged 60 years or older (1 - Risk 60-74 years 1-dose series) 2024 SDOH Screening 04/03/2025 04/03/2024 Depression Monitoring 09/05/2025 03/05/2025, 025 Diabetes: Hemoglobin A1C 10/16/2025 025, 03/22/2025, 11/30/2024, Additional history exists Eye Exam 12/14/2025 12/14/2024, 11/19, 12/14/2024, Additional history exists Dental Oral Exam 12/26/2025 06/27/2025, 09/2024, 07/17/2022 Dental Prophylaxis 12/26/2025 06/27/2025, 0 03/30/2024, 02/04/2023 Disability Screening 03/05/2026 03/05/2025 Lipid Panel 03/30/2026 03/30/2025, 02/15, 07/23/2022, Additional history exists Dental X-Ray: Bitewings 06/28/2026 06/27/20 25, 03/30/2024, 12/16/2020 Diabetes: Foot Exam 07/17/2026 07/17/2025, 07/17/2025, 07/17/2025, Additional history exists Diabetes: Urine Protein Screening 07/17/2026 07/17/2025, 02/26/2023, 01/01/2022, Additional history exists Tobacco Screening 07/17/2026 07/17/2025 Mammogram 03/29/2027 03/29/2025, [...] Completed 07/07/2024, 12/2022, 11/04/2022, Additional history exists HIV Screening Completed 07/17/2025 Influenza Vaccine Completed 07/17/2025, , 06/17/2023, Additional [...] Procedure Name Priority Date/Time Associated Diagnosis Comments TSH W/REFLEX TO FT4 Routine 07/17/2025 3 :56 PM EDT HEMOGLOBIN A1C Routine 07/17/2025 3:56 PM EDT HIV 1/2 ANTIGEN/ANTIBODY, FOURTH GENERATION W/RFL Routine 07/17/2025 3:56 PM EDT Screening for HIV (human immunodeficiency virus) ALBUMIN, RANDOM URINE W/CREATININE Routine 07/17/2025 3:56 PM EDT Type 2 diabetes mellitus with other specified complication, with long-term current use of insulin ([facility]/HCC) POCT GLUCOSE Routine 07/17/2025 3:19 PM EDT Type 2 diabetes mellitus with other specified complication, with long-term current use of insulin (CMS/[facility]) US ABDOMEN COMPLETE Routine 07/04/2025 1 0:36 [...] TOMOSYNTHESIS BILATERAL Routine 03/29/2025 2:44 PM EDT HEPATITIS C AB W/REFL TO HCV RNA, QN, PCR Routine 04/17/2024 11:32 AM EDT Need for hepatitis C screening test INTRAORAL - COMPLETE SERIES OF RADIOGRAPHIC IMAGES Routine 03/30/2024 1:00 PM EDT Dental plaque Missing teeth, acquired Gingival recession, localized IMAGE-GUIDED PAP W/AGE BASED SCR PROTOCOLS Routine 01/13/2023 11:48 AM EDT Cervical cancer screening HM COLONOSCOPY Routine 11/14/2018 4:17 PM EST from Last 3 Months or Most Recently Relevant to Health Maintenance Results * TSH with Reflex to Free T4 (07/17/2025 3:56 PM EDT) TSH reflex Free T4 0.48 0.32 - 4.0 uIU/mL [facility] 07/17/2025 3:56 PM EDT 07/17/2025 6:05 PM EDT us Generic External Data Provider LAB BLOOD ORDERAB LES Final Result Performing Organization Address [facility] Co de Phone Number [facility] [address] [place] [phone] * Albumin, Random Urine W/Creatinine (07/17/2025 3:56 PM EDT) Pathologist [facility] Creatinine, Urine 58.29 mg/dL [facility] Microalbumin Urine 14.0 mg/L [facility] Microalbum Creatinine Ratio Ur 24.0 <30 ug/mg cr [facility] Comment:Albumin/Creatinine R atio Reference Ranges: Normal: < 30 ug/mg creatinine Microalbuminuria: 30 - 300 ug/mg creatinineClinical Albuminuria: > 300 ug/mg creatinine Urine (Urine, Random) 07/17/2025 3:56 PM EDT 07/17/2025 6:10 PM EDT Roel Rock MD LAB URINE ORDERABLES Final Resul t Performing Organization Address [facility] Co de Phone Number [facility] [address] [place] [address] [phone] * HIV-1/2 Antigen and Antibodies, Fourth Generation, with Reflexes (07/17/2025 3:56 PM EDT) HIV AB/AG Nonreactive Nonreactive [facility] Comment:HIV-1 p24 Ag and/or HIV-1/HIV-2 Ab not detected.A test result that is nonreactive does not exclude thepossibility of exposure to or infection with HIV-1 and/orHIV-2. Nonreactive results in this assay for individualswith prior exposure to HIV-1 and/or HIV-2 may be due toantigen and antibody levels that are below the limit ofdetection of this assay.[employer] HIV Ag/Ab Combo assay result andsupplemental assay results should be interpreted inconjunction with the patient's clinical presentation,history and other laboratory results. If the results areinconsistent with clinical evidence, additional testing issuggested to confirm the result. Blood Venous blood specimen / Unknown 07/17/2025 3:56 PM EDT 07/17/2025 6:05 PM EDT Roel Rock MD LAB BLOOD ORDERABLES Final Resul t [facility] [address] [place] [phone] * (ABNORMAL) Hemoglobin A1c (07/17/2025 3:56 PM EDT) Hemoglobin A1c 7.3(H) <6.0 % [facility] Comment:Hemoglobin A1C Refer ence Range Adults: 4.8 - 6.0 % Non diabetic: < 6.0 % Goal: < 7.0 %Additional Action Suggested: > 8.0 %Note: Hemoglobin A1c results are invalid for patients with abnormal amounts of HbF. Blood transfusions may impact the HbA1c concentration in the patient sample. Estimated Average Glucose 163 mg/dL [facility] Comment:eAG = Estimated ave rage glucose which is %A1C expressed asaverage glucose, using the formula of the X1E-QjhntpiQmhhkzb Glucose study (ADAG), Diabetes Care, Vol.31,#8,May. 2007 07/17/2025 3:56 PM EDT 07/17/2025 6:05 PM EDT us Generic External Data Provider LAB BLOOD ORDERAB LES Final Result [facility] [address] [place] [phone] * POCT Glucose (07/17/2025 3:19 PM EDT) [...] AM EDT Narrative 07/04/2025 11:31 AM EDT [address] [address] Ultrasound Report Signed Patient: Lolly Mcginnis MR#: M [id number] : 1965 Acct:[id number] Age/Sex: 60 / F ADM Date: 07/04/25 Loc: HO.US Attending Dr: Selena WHITE Ordering Physician: Selena Giang Date of Service: 07/04/25 Procedure(s): US abdomen complete Accession Number(s): [id number] cc: Selena Giang; Name,Roel ORTEGA Reason for [...] 07/04/25 1128 DD/ 1036 TD/TT: 07/04/25 1053 Hearing Instrument Specialist: Procedure Note Donotuseinterpreter, Image - 07/04/2025 [place] [address] Ultrasound Report Signed Patient: Lolly Mcginnis [facility]#: [id number] : 1965Acct:[id number] Age/Sex: 60 / FADM Date: 07/04/25 Loc: HO.US Attending Dr: Selena WHITE Ordering Physician: Selena Giang Date of Service: 07/04/25 Procedure(s): US abdomen complete Accession Number(s): [id number] cc: Selena Giang; Name,Roel ORTEGA Reason for [...] 07/04/25 1128 DD/ 1036 TD/TT: 07/04/25 1053 Hearing Instrument Specialist: [facility] External Provider IMG US PROCEDURES Edited Result - Final * POCT COVID-19 Ag Cabral ID NOW (05/07/2025 10:49 AM EDT) Pathologist [facility] Coronavirus Antigen PCR Negative Negative, Indeterminate, None Detected, Invalid, Specimen unsatisfactory for evaluation, Weakly Positive, 2+ Swab 05/07/2025 10:4 9 AM EDT Bonnie Payne MD POINT OF CARE TEST ENTER /EDIT ORDERABLES Final Result * Lipid Panel, Standard (03/30/2025 8:51 AM EDT) Triglycerides 58 <150 mg/dL [facility] Comment:Desirable Triglyceri de: less than 150 mg/dLBorderline High Triglyceride 150-199 mg/dLHigh Triglyceride: 200-499 mg/dLVery High Triglyceride: greater than or equal to 5OO mg/dL Cholesterol 167 <200 mg/dL [facility] Comment:Desirable Cholestero l: less than 200 mg/dLBorderline High Cholesterol: 200-239 mg/dLHigh Cholesterol: greater than 239 mg/dL LDL Cholesterol Calculated 91 <100 mg/dL [facility] Comment:Desirable LDL: less than 100 mg/dLNear Optimal/Above Optimal LDL: 110- 129 mg/dLBorderline High LDL: 130-159 mg/dLHigh LDL: 160-189 mg/dLVery High LDL: greater than or equal to 190 mg/dL HDL Cholesterol 65 >40 mg/dL [facility] Comment:Desirable HDL: great er than 40 mg/dL Note: This HDL assay may give artificially low results in patients with liver disease. Blood Venous blood specimen / Unknown 03/30/2025 8:51 AM EDT 03/30/2025 11:04 AM EDT Roel Rock MD LAB BLOOD ORDERABLES Final Resul t [facility] [address] [place] [phone] * BI Mammogram Screening Tomosynthesis Bilateral (03/29/2025 2:44 PM EDT) Anatomical Region Laterality Modality Breast Bilateral Mammography 03/29/2025 2:44 PM EDT Narrative 04/07/2025 10:52 AM EDT [facility] [address] [place] [address] Mammography Report Signed Patient: Lolly Mcginnis MR#: M [id number] : 1965 Acct:[id number] Age/Sex: 60 / F ADM Date: 03/29/25 Loc: PREET Attending Dr: Roel Rock MD Ordering Physician: Roel Rock MD Results: 1Negative Date of Service: 03/29/25 Follow Up: 1 Year From Orig inal Mammogram Procedure(s): MM tomosynthesis screening BI Accession Number(s): [id number] cc: Roel Rock MD EXAMINATION: MM SCREENING [...] 04/07/25 1048 DD/ 1444 TD/TT: 03/29/25 1457 Hearing Instrument Specialist: Procedure Note Donotuseinterpreter, Image - 04/07/2025 [facility] [address] [place], [place] [address] Mammography Report Signed Patient: Lolly Mcginnis MMR#: M [id number] : 1965Acct:[id number] Age/Sex: 60 / FADM Date: 03/29/25 Loc: GARRETO Attending Dr: Roel Rock MD Ordering Physician: Roel Rock MDResults: 1Negative Date of Service: 03/29/25Follow Up: 1 Year From Orig inal Mammogram Procedure(s): MM tomosynthesis screening BI Accession Number(s): [id number] cc: Roel Rock MD EXAMINATION: MM SCREENING [...] 04/07/25 1048 DD/ 1444 TD/TT: 03/29/25 1457 Hearing Instrument Specialist: us Roel Rock MD IMG BI PROCEDURES Edited Result - Final * Hepatitis C Antibody with Reflex to HCV, RNA, Quantitative, Real-Time PCR (04/17/2024 11:32 AM EDT) Hepatitis C Antibody Nonreactive Nonreactive [facility] Comment:Antibodies to HCV no t detected; does not exclude early acuteHCV infection. Blood Venous blood specimen / Unknown 04/17/2024 11:32 AM EDT 04/17/2024 1:13 PM EDT us Roel Rock MD LAB BLOOD ORDERABLES Final Resul t [facility] [address] [place] [phone] [phone] * Image-Guided Pap with Age-Based Screening Protocols (01/13/2023 11:48 AM EDT) Comment [employer] Comment: This order for age-based cervical cancer and STI screening follows ACOG guidelines(PB 168, 140, CLP176). See individual assays for performing site location. Clinical Information: None given [facility] [facility] LMP: NONE GIVEN [facility] Prev. PAP: NONE GIVEN [employer] [facility] Prev. BX: NONE GIVEN [facility] SOURCE: None given [facility] Statement Of Adequacy: SATISFACTORY FOR EVALUATION [employer] Interpretation/Re sult: [employer] Comment: Negative for intraepithelial lesion or malignancy. Atrophic pattern; predominantly parabasal cells COMMENT: This Pap test has been evaluated with computer assisted technology. Alerts [place] [employer] Automatic Packer Operator: Arie Dialst Comment: SXA, CT(ASCP) CT screening location: [place] [address] (Always Message) [facility] Original Comment: EXPLANATORY NOTE: The Pap is a [...] HPV nRNA E6/E7 Not Detected Not Detected [employer] Comment: Methodology: Aircraft Electrician-Mediated Amplification This assay detects E6/E7 viral messenger RNA (mRNA) from 14 high-risk HPV types (16,18,31,33,35,39,45,51,52,56,58,59,66,68). Cervical sources are required for HPV testing. If a vaginal source from a patient who has had a total hysterectomy with removal of cervix was submitted, please contact the testing laboratory for alternative testing options. For additional information, please refer to http://education.Object Matrix.EyesBot/faq/FFY702i6 (This link if provided for information/ educational purposes only.) Cytology specimen container (physical object) 01/13/2023 11:48 AM EDT 01/14/2023 2:03 AM EDT Erica Joseph CNM LAB BLOOD ORDERABLES Janis kaba Result [facility] [address] [facility], [facility], [place] [address] Alerts [facility] [address] [place] [phone] * Hm Colonoscopy (11/14/2018 4:17 PM EST) Colonoscopy Normal Normal Narrative Ami Giraldo - 11/14/2018 4:17 PM EST Recommended 5 year follow up us Historical Provider MD HEALTH MAINTENANCE Final Result from Last 3 Months or Most Recently Relevant to Health Maintenance Insurance [facility] C3 DENTAL-[facility] MEDICAID STAND ADULT Care Teams Active Directory Architect Relationship Specialty Start Date End Date Name, MD Roel [address] [place] [phone] PCP - General Family Medicine 10/04/17
--- OUTSIDE RECORDS SUMMARY | 2025-08-02 08:36 | XMS_ITS | Encounter Summary ---
Author Organization [employer] Address [address] [facility] [address]t [place] [address] Care Team Providers Care Program Admin Name Role Phone NameRoel MD Primary Care Provider [phone] Reason for Visit * Reason Onset Date Comments Appointment Request 12/09/2023 Encounter Details Date Type Department Care Team ([facility] st Contact Info) Description 12/09/2023 Telephone [facility] MEDICINE [address] [place], [place] [phone] Name, MD Roel [address] [place] [address] Appointment Request Social History Tobacco Use Types [...] Description 12/27/2025 8:45 AM EDT Office Visit [facility] ADULT DENTAL [address] [place] [address] Kathleen Alejandre [address] [place] [address] documented as of this encounter Visit Diagnoses Not on filedocumented in this encounter Additional Health Concerns Assessment Noted Time PHQ-9 Depression Total Score: 0 11/03/19 23 8:54 AM EST documented as of this encounter Care Teams Program Admin Relationship Specialty Start Date End Date Name, MD Roel [address] [place] [address] PCP - General Family Medicine 10/04/17 documented as of this encounter
== END 2025-08-02 08:53 | disposition home or self-care (01) ==
LOC: HO.ENCR 08:22
PROVIDERS: PCP Internal Medicine Geriatric Medicine; Visit Provider Internal Medicine
DX: E11.40 Type 2 diabetes mellitus with diabetic neuropathy, unspecified (principal); Z79.4 Long term (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 of insulin; E11.65 Type 2 diabetes mellitus with hyperglycemia

== ENCOUNTER → 2025-08-02 08:21 | Outpatient (BNVA) | payer MEDICAID, SELFPAY | PROVIDERS: PCP Internal Medicine Geriatric Medicine; Visit Provider Internal Medicine | DX: E11.40 Type 2 diabetes mellitus with diabetic neuropathy, unspecified (principal); Z79.4 Long term (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 of insulin; E11.65 Type 2 diabetes mellitus with hyperglycemia | CPT/HCPCS: 82947; 99212 ==

== ENCOUNTER 2025-09-27 12:19 | Day surgery (SDC) | payer MEDICAID, SELFPAY ==
--- OUTSIDE RECORDS SUMMARY | 2025-09-17 16:58 | XMS_ITS | Encounter Summary ---
Author Organization [employer] [facility] Address [address] [facility] 7t [place] [address] Care Team Providers Care Pattern Grader Supervisor Name Role Phone Name, Roel ORTEGA Primary Care Provider [phone] Encounter Details Date Type Department Care Team (Late st Contact Info) Description 03/18/2023 Abstract [facility] MEDICINE [address] [place] [address] Name, MD Roel [address] [place] [address] Social History Tobacco Use Types Packs/Day Years [...] Description 12/27/2025 8:45 AM EDT Office Visit [facility] ADULT DENTAL [address] [place] [address] Kathleen Alejandre [address] [place] [address] documented as of this encounter Procedures Procedure [...] documented as of this encounter Care Teams Pattern Grader Supervisor Relationship Specialty Start Date End Date Name, MD Roel [address] [place] [address] PCP - General Family Medicine 10/04/17 documented as of this encounter
--- OUTSIDE RECORDS SUMMARY | 2025-09-17 16:58 | XMS_ITS | Encounter Summary ---
Author Organization [employer] Address [address] [facility] 7t [place] [address] Care Team Providers Care Distribution Sales Representative Name Role Phone Name, Roel ORTEGA Primary Care Provider [phone] Encounter Details Date Type Department Care Team ([facility] Contact Info) Description 07/18/2025 Results Follow-Up [facility] MEDICINE [address] [place] [phone] Name, MD Roel [address] [place] [address] POCT Glucose, Albumin, Random Urine W/Creatinine, HIV-1/2 [...] 8:45 AM EDT Office Visit [facility] ADULT DENTAL [address] [place] [address] Pili, Kathleen [address] [place] [address] documented as of this encounter Visit Diagnoses Not on filedocumented in this encounter Additional Health Concerns Assessment Noted Time PHQ-9 Depression Total Score: 9 03/05/20 25 2:25 PM EDT documented as of this encounter Care Teams Distribution Sales Representative Relationship Specialty Start Date End Date Name, MD Roel [address] [place] [address] PCP - General Family Medicine 10/04/17 documented as of this encounter
--- OUTSIDE RECORDS SUMMARY | 2025-09-17 16:58 | XMS_ITS | Encounter Summary ---
Author Organization [employer] Address [address] [facility] [address]t [place] [address] Care Team Providers Care Advertising Agent Name Role Phone NameRoel MD Primary Care Provider [phone] Reason for Visit * Reason Onset Date Comments Results 04/19/2024 Encounter Details Date Type Department Care Team ([facility] st Contact Info) Description 04/19/2024 Telephone [facility] MEDICINE [address] [place], [place] [phone] Name, MD Roel [address] [place] [address] Results Social History Tobacco Use Types Packs/Day [...] Description 12/27/2025 8:45 AM EDT Office Visit [facility] ADULT DENTAL [address] [place] [address] Pili, Kathleen [address] [place] [address] documented as of this encounter Visit Diagnoses Not on filedocumented in this encounter Additional Health Concerns Assessment Noted Time PHQ-9 Depression Total Score: 0 12/31/19 24 10:54 AM EDT documented as of this encounter Care Teams Advertising Agent Relationship Specialty Start Date End Date Name, MD Roel [address] [place] [address] PCP - General Family Medicine 10/04/17 documented as of this encounter
--- OUTSIDE RECORDS SUMMARY | 2025-09-17 16:58 | XMS_ITS | Encounter Summary ---
Author Organization [employer] Address [address] [facility] 7t [place] [address] Care Team Providers Care Valet Service Attendant Name Role Phone Name, Roel ORTEGA Primary Care Provider [phone] Encounter Details Date Type Department Care Team ([facility] Contact Info) Description 07/06/2023 Telephone [facility] MEDICINE [address] [place], [place] [phone] Name, MD Roel [address] [place] [address] Social History Tobacco Use Types Packs/Day Years [...] letter to schedule f/u appointment with coleen. Agricultural Mechanic does not see any documentation on letter or recall. Please contact pt at [phone] (Egyptian) documented in this encounter Plan of Treatment Upcoming Encounters Date Type Department Care Team (Late st Contact Info) Description 12/27/2025 8:45 AM EDT Office Visit [facility] ADULT DENTAL [address] [place] [address] Jesse Alejandrearis [address] [place] [address] documented as of this encounter Visit Diagnoses Not on filedocumented in this encounter Additional Health Concerns Assessment Noted Time PHQ-9 Depression Total Score: 0 11/03/19 8:54 AM EST documented as of this encounter Care Teams Valet Service Attendant Relationship Specialty Start Date End Date Name, MD Roel [address] [place] [address] PCP - General Family Medicine 10/04/17 documented as of this encounter
--- OUTSIDE RECORDS SUMMARY | 2025-09-17 16:58 | XMS_ITS | Encounter Summary ---
Author Organization [employer] [facility] Address [address] [facility] 7t [place] [address] Care Team Providers Care Quantitative Analyst Developer Name Role Phone Name, Roel ORTEGA Primary Care Provider [phone] Encounter Details Date Type Department Care Team (Late st Contact Info) Description 03/19/2023 Abstract [facility] MEDICINE [address] [place] [address] Name, MD Roel [address] [place] [address] Social History Tobacco Use Types Packs/Day Years [...] Description 12/27/2025 8:45 AM EDT Office Visit [facility] ADULT DENTAL [address] [place] [address] Kathleen Alejandre [address] [place] [address] documented as of this encounter Visit Diagnoses Not on filedocumented in this encounter Additional Health Concerns Assessment Noted Time PHQ-9 Depression Total Score: 0 11/03/19 23 8:54 AM EST documented as of this encounter Care Teams Quantitative Analyst Developer Relationship Specialty Start Date End Date Name, MD Roel [address] [place] [address] PCP - General Family Medicine 10/04/17 documented as of this encounter
--- OUTSIDE RECORDS SUMMARY | 2025-09-17 16:58 | XMS_ITS | Encounter Summary ---
Author Organization [employer] [facility] Address [address] [place] [address] 7t [place] [address] Care Team Providers Care Embossing Machine Operator Helper Name Role Phone Name, Roel ORTEGA Primary Care Provider [phone] Encounter Details Date Type Department Care Team (Late st Contact Info) Description 09/15/2022 Abstract [facility] ADULT DENTAL [address] [place] [address] Dental, Provider, DDS Social History Tobacco Use [...] 12/27/2025 8:45 AM EDT Office Visit [facility] ADULT DENTAL [address] [place] [address] PiliKathleen 230 [place] [address] documented as of this encounter Visit Diagnoses Not on filedocumented in this encounter Care Teams Embossing Machine Operator Helper Relationship Specialty Start Date End Date Name, MD Roel [address] [place] [address] PCP - General Family Medicine 10/04/17 documented as of this encounter
--- OUTSIDE RECORDS SUMMARY | 2025-09-17 16:58 | XMS_ITS | Encounter Summary ---
Author Organization [employer] Address [address] [facility] 7t [place] [address] Care Team Providers Care Detail Manager Name Role Phone Name, Roel ORTEGA Primary Care Provider [phone] Reason for Visit * Reason Comments Med Refill Encounter Details Date Type Department Care Team ([facility] st Contact Info) Description 05/12/2025 Refill [facility] MEDICINE [address] [place] [address] Hellen Porter, ANP [address] [place] [address] Mild persistent asthma without complication Social History [...] Description 12/27/2025 8:45 AM EDT Office Visit [facility] ADULT DENTAL 230 [place] [address] Jesse Alejandrearis [address] [place] [address] documented as of this encounter Visit Diagnoses Diagnosis Mild persistent asthma without complication documented in this encounter Additional Health Concerns Assessment Noted Time PHQ-9 Depression Total Score: 9 03/05/20 25 2:25 PM EDT documented as of this encounter Care Teams Detail Manager Relationship Specialty Start Date End Date Name, MD Roel [address] [place] [address] PCP - General Family Medicine 10/04/17 documented as of this encounter
--- OUTSIDE RECORDS SUMMARY | 2025-09-17 16:58 | XMS_ITS | Clinical Summary ---
Author Organization [employer] Address [address] [place] [address] 7t [place] [address] Care Team Providers Care System Analyst Name Role Phone Name, Roel ORTEGA Primary Care Provider [phone] Allergies Active Allergy Reactions Criticality Noted Date [...] Needle Sandy U/F 32G X 4 MM [facility] 10/21/19 23 Active gabapentin (Neurontin) 300 MG [...] Continuous Glucose Sensor (FreeStyle Rama 2 Sensor) [facility] 12/22/19 24 Active acetaminophen (Tylenol) 500 MG [...] candidiasis. Do not swallow. 1 each 11 5 2:17 PM EST 11/30/19 25 026 Active Trulicity 3 MG/0.5ML solution auto-injector 11/22/19 25 Active Toujeo Max SoloStar 300 UNIT/ML injection Ac tive Myrbetriq 50 MG 24 hr tablet Take 50 mg by mouth in the morning. 12/05/19 25 Active insulin aspart FlexPen (NovoLOG) 100 [...] FOOD 45 tablet 1 06/13/20 25 Active fluticasone (Flonase) 50 MCG/ACT nasal spray INSTILL 2 SPRAYS IN EACH NOSTRIL ONCE DAILY 48 g 1 07/24/20 25 Active amLODIPine (Norvasc) 5 MG tabletIndications: Essential hypertension TAKE 1 TABLET BY MOUTH EVERY MORNING 90 tablet 1 08/16/20 25 Active hydroCHLOROthiazid e 12.5 MG tabletIndications: Essential hypertension TAKE 1 TABLET BY MOUTH EVERY MORNING 90 tablet 1 2:17 PM EST 08/16/20 25 Active Active Problems Problem Noted Date [...] <100 04/11/2024 IBS (irritable bowel syndrome) 04/11/2024 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 ([facility]) Mass of soft tissue of right upper extremity Post-surgical hypothyroidism 04/11/2024 Right wrist pain 04/11/2024 S/P appendectomy 04/11/2024 Tubular adenoma of colon 04/11/2024 Missing teeth, acquired 03/30/2024 Asthma 09/22/2023 09/22/2023 Gastroesophageal reflux disease 09/22/2023 09/22/2023 Seasonal allergic rhinitis 02/19/2023 Dental plaque 02/04/2023 Gingival recession, localized 02/04/2023 Chronic low back pain 09/15/2022 Urinary incontinence 09/15/2022 Papillary thyroid carcinoma ([facility]/HCC) 01/15/2021 Overview (02/19/2023): S/p R thyroidectomy Nonproliferative diabetic retinopathy 01/17/2019 Overview (02/09/2024): Follows at [facility] Diabetic 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 11/17/2017 Hypertension 10/04/2017 Diabetes mellitus 10/04/2017 Resolved Problems Problem Noted Date Diagnosed Date Resolved Date Diabetic neuropathy 09/22/2023 09/22/2023 12/24/19 Extrinsic asthma without complication 02/19/2023 12/24/2023 Thyroid nodule 09/15/2022 02/19/2023 Encounters Date Type Department Care Team Description 08/16/2025 Refill [facility] MEDICINE [address] [place] [address] Roel Rock MD Essential hypertension 08/02/2025 Orders Only GENERIC EXTERNAL DATA DEPARTMENT Provider, Generic External Data 07/23/2025 Refill [facility] [address] [facility] [place] [address] Roel Rock MD 07/18/2025 Results Follow-Up [facility] [address] [facility] [place] [address] Roel Rock MD POCT Glucose, Albumin, Random Urine W/Creatinine, HIV-1/2 Antigen and Antibodies, Fourth Generation, with Reflexes 07/17/2025 3:15 PM EDT Office Visit [facility] [address] [facility] [address] Roel Rock MD Type 2 diabetes mellitus with other specified complication, with long-term current use of insulin ([facility]) (Primary Dx); Screening for HIV (human immunodeficiency virus); Encounter for immunization 07/17/2025 Orders Only GENERIC EXTERNAL DATA DEPARTMENT Provider, Generic External Data 07/17/2025 Travel 07/04/2025 Orders Only [facility] External Provider, [facility] 06/27/2025 10:00 AM EDT Office Visit [facility] ADULT DENTAL [address] [place] [address] Kathleen Alejandre Excessive attrition of teeth (Primary Dx); Gingival recession, localized; Dental plaque; Missing teeth, acquired from Last 3 Months Immunizations Immunization Administration [...] Description 12/27/2025 8:45 AM EDT Office Visit [facility] ADULT DENTAL [address] [place] [address] Pili, Kathleen [address] [place] [address] Health Maintenance Due Date Last Done Comments CT Colonography 1965 FIT DNA/Cologuard 1965 FIT 1965 FOBT 1965 Sigmoidoscopy 1965 Alcohol/Substance Use Screening 1976 Hepatitis A Vaccines (1 of 2 - Risk 2-dose series) 1983 RSV Patients and Patients Aged 60 years or older (1 - Risk 50-74 years 1-dose series) 2014 Colonoscopy 11/14/2023 11/14/2018 Colorectal Cancer Screening 11/14/2023 Hepatitis B Vaccines (1 of 3 - Risk 3-dose series) 2024 SDOH Screening 04/03/2025 04/03/2024 COVID-19 Vaccine ( season) 2025 07/07/2024, 07/20/2023, 11/04/2022, Additional history exists Depression Monitoring 09/05/2025 03/05/2025, [...] exists Diabetes: Urine Protein Screening 07/17/2026 07/17/2025, 12/20/2023, 02/26/2023, Additional history exists Tobacco Screening 07/17/2026 07/17/2025 Mammogram 03/29/2027 03/29/2025, 06/03/2024, 03/16/2023, Additional history exists Dental X-Ray: Full Mouth 03/31/2027 03/30/2024, 10/18 DTaP/Tdap/Td Vaccines (2 - Td or Tdap) 10/04/2027 10/04/2017 Cervical Cancer Screening 01/14/2028 HPV/Cotest 01/14/2028 01/13/2023, 11/30/2019 Pap Smear 01/14/2028 01/13/2023 Zoster Vaccines Completed 03/17/2022, 01/05/2022 Pneumococcal Vaccine: 50+ Years Completed 09/22/2023, 11/17/2017 Hepatitis C Screening Completed 04/17/2024 HIV Screening Completed 07/17/2025 Influenza Vaccine Completed [...] Associated Diagnosis Comments GLUCOSE, WHOLE BLOOD Routine 08/02/2025 8:33 AM EDT TSH W/REFLEX TO FT4 Routine 07/17/2025 3 :56 PM EDT HEMOGLOBIN A1C Routine 07/17/2025 3:56 PM EDT HIV 1/2 ANTIGEN/ANTIBODY, FOURTH GENERATION W/RFL Routine 07/17/2025 3:56 PM EDT Screening for HIV (human immunodeficiency virus) ALBUMIN, RANDOM URINE W/CREATININE Routine 07/17/2025 3:56 PM EDT Type 2 diabetes mellitus with other specified complication, with long-term current use of insulin ([facility]) POCT GLUCOSE Routine 07/17/2025 3:19 PM EDT Type 2 diabetes mellitus with other specified complication, with long-term current use of insulin ([facility]) US ABDOMEN COMPLETE Routine 07/04/2025 1 0:36 [...] recession, localized Dental plaque Missing teeth, acquired LIPID PANEL, STANDARD Routine 03/30/2025 8:51 AM [...] Maintenance Results * (ABNORMAL) Glucose, Whole Blood (08/02/2025 8:33 AM EDT) Glucose, Whole Blood 194(H) 60 - 115 mg/dL [facility] Comment:METER #: [id number] 0Testing performed in the Endocrinology Department [address] , [address], [facility]. 08/02/2025 8:33 AM EDT 08/02/2025 8:36 AM EDT us Generic External Data Provider LAB BLOOD ORDERAB LES Final Result Performing Organization Address [facility] Co de Phone Number [facility] [address] [place] [phone] * TSH with Reflex to Free T4 (07/17/2025 3:56 PM EDT) TSH reflex Free T4 0.48 0.32 - 4.0 uIU/mL [facility] 07/17/2025 3:56 PM EDT 07/17/2025 6:05 PM EDT us Generic External Data Provider LAB BLOOD ORDERAB LES Final Result Performing Organization Address [facility] Co de Phone Number [facility] [address] [place] [phone] * Albumin, Random Urine W/Creatinine (07/17/2025 3:56 PM EDT) Creatinine, Urine 58.29 mg/dL [facility] Microalbumin Urine 14.0 mg/L [facility] Microalbum Creatinine Ratio Ur 24.0 <30 ug/mg cr [facility] Comment:Albumin/Creatinine R atio Reference Ranges: Normal: < 30 ug/mg creatinine Microalbuminuria: 30 - 300 ug/mg creatinineClinical Albuminuria: > 300 ug/mg creatinine Urine (Urine, Random) 07/17/2025 3:56 PM EDT 07/17/2025 6:10 PM EDT us Roel Rock MD LAB URINE ORDERABLES Final Resul t Performing Organization Address [facility] Co de Phone Number [facility] [address] [place] [phone] * HIV-1/2 Antigen and Antibodies, Fourth Generation, with Reflexes (07/17/2025 3:56 PM EDT) HIV AB/AG Nonreactive Nonreactive [facility] Comment:HIV-1 p24 Ag and/or HIV-1/HIV-2 Ab not detected.A test result that is nonreactive does not exclude thepossibility of exposure to or infection with HIV-1 and/orHIV-2. Nonreactive results in this assay for individualswith prior exposure to HIV-1 and/or HIV-2 may be due toantigen and antibody levels that are below the limit ofdetection of this assay.The OTOY HIV Ag/Ab Combo assay result andsupplemental assay results should be interpreted inconjunction with the patient's clinical presentation,history and other laboratory results. If the results areinconsistent with clinical evidence, additional testing issuggested to confirm the result. Blood Venous blood specimen / Unknown 07/17/2025 3:56 PM EDT 07/17/2025 6:05 PM EDT us Roel Name LAB BLOOD ORDERABLES Final Resul t [facility] [address] [place] [phone] * (ABNORMAL) Hemoglobin A1c (07/17/2025 3:56 PM EDT) Hemoglobin A1c 7.3(H) <6.0 % [facility] Comment:Hemoglobin A1C Refer ence Range Adults: 4.8 - 6.0 % Non diabetic: < 6.0 % Goal: < 7.0 %Additional Action Suggested: > 8.0 %Note: Hemoglobin A1c results are invalid for patients with abnormal amounts of HbF. Blood transfusions may impact the HbA1c concentration in the patient sample. Estimated Average Glucose 163 mg/dL [facility] Comment:eAG = Estimated ave rage glucose which is %A1C expressed asaverage glucose, using the formula of the O7M-XyfrcgkHmascrq Glucose study (ADAG), Diabetes Care, Vol.31,#8,May. 2007 07/17/2025 3:56 PM EDT 07/17/2025 6:05 PM EDT us Generic External Data Provider LAB BLOOD ORDERAB LES Final Result [facility] [address] [place] [phone] * POCT Glucose (07/17/2025 3:19 PM [...] AM EDT Narrative 07/04/2025 11:31 AM EDT [address] [address] Ultrasound Report Signed Patient: Lolly Mcginnis MR#: [id number] : 1965 Acct:[id number] Age/Sex: 60 / F ADM Date: 07/04/25 Loc: HO.US Attending Dr: Selena WHITE Ordering Physician: Selena Giang Date of Service: 07/04/25 Procedure(s): US abdomen complete Accession Number(s): [id number] cc: Selena Giang; Name,Roel ORTEGA Reason for [...] 1128 DD/ 1036 TD/TT: 07/04/25 1053 Paper Sales Representative: Procedure Note Donotuseinterpreter, Image - 07/04/2025 [place] [address] Ultrasound Report Signed Patient: Lolly Mcginnis [facility]#: [id number] : 1965Acct:[id number] Age/Sex: 60 / FADM Date: 07/04/25 Loc: HO.US Attending Dr: Selena WHITE Ordering Physician: Selena Giang Date of Service: 07/04/25 Procedure(s): US abdomen complete Accession Number(s): [id number] cc: Selena Giang; Name,Roel ORTEGA Reason for [...] 1128 DD/ 1036 TD/TT: 07/04/25 1053 Paper Sales Representative: us [facility] External Provider IMG US PROCEDURES Edited Result - Final * Lipid Panel, Standard (03/30/2025 8:51 AM EDT) Triglycerides 58 <150 mg/dL [facility] Comment:Desirable Triglyceri de: less than 150 mg/dLBorderline High Triglyceride 150-199 mg/dLHigh Triglyceride: 200-499 mg/dLVery High Triglyceride: greater than or equal to 5OO mg/dL Cholesterol 167 <200 mg/dL [facility] Comment:Desirable Cholestero l: less than 200 mg/dLBorderline High Cholesterol: 200-239 mg/dLHigh Cholesterol: greater than 239 mg/dL LDL Cholesterol Calculated 91 <100 mg/dL [facility] Comment:Desirable LDL: less than 100 mg/dLNear Optimal/Above Optimal LDL: 110- 129 mg/dLBorderline High LDL: 130-159 mg/dLHigh LDL: 160-189 mg/dLVery High LDL: greater than or equal to 190 mg/dL HDL Cholesterol 65 >40 mg/dL [facility] Comment:Desirable HDL: great er than 40 mg/dL Note: This HDL assay may give artificially low results in patients with liver disease. Blood Venous blood specimen / Unknown 03/30/2025 8:51 AM EDT 03/30/2025 11:04 AM EDT Roel Rock MD LAB BLOOD ORDERABLES Final Resul t [facility] [address] [place] [phone] * BI Mammogram Screening Tomosynthesis Bilateral (03/29/2025 2:44 PM EDT) Anatomical Region Laterality Modality Breast Bilateral Mammography 03/29/2025 2:44 PM EDT Narrative 04/07/2025 10:52 AM EDT [address] [place] [address] Mammography Report Signed Patient: Lolly Mcginnis MR#: [id number] : 1965 Acct:[id number] Age/Sex: 60 / F ADM Date: 03/29/25 Loc: HO.MAMMO Attending Dr: Roel Rock MD Ordering Physician: Roel Rock MD Results: 1Negative Date of Service: 03/29/25 Follow Up: 1 Year From [facility] Mammogram Procedure(s): MM tomosynthesis screening BI Accession Number(s): [id number] cc: Roel Rock MD EXAMINATION: MM SCREENING [...] OV> 04/07/25 1048 DD/ 1444 TD/TT: 03/29/25 1459 Paper Sales Representative: Procedure Note Donotuseinterpreter, Image - 04/07/2025 [facility] [address] [place] [address] Mammography Report Signed Patient: Lolly Mcginnis MMR#: M [id number] : 1965Acct:[id number] Age/Sex: 60 / FADM Date: 03/29/25 Loc: HO.MAMMO Attending Dr: Roel Rock MD Ordering Physician: Roel Rock MDResults: 1Negative Date of Service: 03/29/25Follow Up: 1 Year From Orig inal Mammogram Procedure(s): MM tomosynthesis screening BI Accession Number(s): [id number] cc: Roel Rock MD EXAMINATION: MM SCREENING [...] 1048 DD/ 1444 TD/TT: 03/29/25 1457 Paper Sales Representative: us Roel Rock MD IMG BI PROCEDURES Edited Result - Final * Hepatitis C Antibody with Reflex to HCV, RNA, Quantitative, Real-Time PCR (04/17/2024 11:32 AM EDT) Hepatitis C Antibody Nonreactive Nonreactive [facility] Comment:Antibodies to HCV no t detected; does not exclude early acuteHCV infection. Blood Venous blood specimen / Unknown 04/17/2024 11:32 AM EDT 04/17/2024 1:13 PM EDT us Roel Rock MD LAB BLOOD ORDERABLES Final Resul t [facility] [address] [place] [phone] * Image-Guided Pap with Age-Based Screening Protocols (01/13/2023 11:48 AM EDT) Comment [employer] Comment: This order for age-based cervical cancer and STI screening follows ACOG guidelines(PB 168, 140, AHB416). See individual assays for performing site location. Clinical Information: None given [facility] LMP: NONE GIVEN [facility] Prev. PAP: NONE GIVEN [facility] Prev. BX: NONE GIVEN [facility] SOURCE: None given [facility] Statement Of Adequacy: SATISFACTORY FOR EVALUATION [facility] Interpretation/Re sult: [employer] [place] [employer] Comment: Negative for intraepithelial lesion or malignancy. Atrophic pattern; predominantly parabasal cells Comment: This Pap test has been evaluated with computer assisted technology. [employer] [place] [employer] Sport Intern: Arie callaway [employer] [place] [employer] Comment: SXA, CT(ASCP) CT screening location: [address] [address] (Always Message) [facility] [employer] [place] [employer] Comment: EXPLANATORY NOTE: The Pap is a [...] HPV nRNA E6/E7 Not Detected Not Detected [employer] [place] [facility] Comment: Methodology: Rubber And Pounder-Mediated Amplification This assay detects E6/E7 viral messenger RNA (mRNA) from 14 high-risk HPV types (16,18,31,33,35,39,45,51,52,56,58,59,66,68). Cervical sources are required for HPV testing. If a vaginal source from a patient who has had a total hysterectomy with removal of cervix was submitted, please contact the testing laboratory for alternative testing options. For additional information, please refer to http://education.Nexmo/faq/OHX151b0 (This link if provided for information/ educational purposes only.) Cytology specimen container (physical object) 01/13/2023 11:48 AM EDT 01/14/2023 2:03 AM EDT us Erica LOFTON LAB BLOOD ORDERABLES Janis l Result [address], [place] [address] [facility] [employer] [place] [employer] [address] [place] [phone] * Hm Colonoscopy (11/14/2018 4:17 PM EST) Colonoscopy Normal Normal Narrative Ami Giraldo - 11/14/2018 4:17 PM EST Recommended 5 year follow up us Historical Provider HEALTH MAINTENANCE Final Result from Last 3 Months or Most Recently Relevant to Health Maintenance Insurance [facility] [place] [address] Care Teams System Analyst Relationship Specialty Start Date End Date Name, MD Roel [address] [place] [address] [place] [address] PCP - General Family Medicine 10/04/17
--- OUTSIDE RECORDS SUMMARY | 2025-09-17 16:58 | XMS_ITS | Encounter Summary ---
Author Organization [employer] [facility] Address [address] [place] [address] 7t [place] [address] Care Team Providers Care Duct Maker Name Role Phone Name, Roel ORTEGA Primary Care Provider [phone] Encounter Details Date Type Department Care Team (Latest Contact Info) Description 12/20/2020 Abstract [facility] CONVERSIONS Dental, Provider, DDS Social History [...] Description 12/27/2025 8:45 AM EDT Office Visit [facility] ADULT DENTAL [address] [place] [address] Pili, [place] [address] [place] [address] documented as of this encounter Visit Diagnoses Not on filedocumented in this encounter Care Teams Duct Maker Relationship Specialty Start Date End Date Name, MD Roel [address] [place] [address] PCP - General Family Medicine 10/04/17 documented as of this encounter
--- OUTSIDE RECORDS SUMMARY | 2025-09-17 16:58 | XMS_ITS | Encounter Summary ---
Author Organization [employer] Address [address] [facility] 7t [place] [address] Care Team Providers Care Cardiac Exercise Specialist Name Role Phone Name, Roel ORTEGA Primary Care Provider [phone] Reason for Visit * Reason Comments Med Refill Encounter Details Date Type Department Care Team ([facility] st Contact Info) Description 06/05/2024 Refill [facility] MEDICINE [address] [place] [address] Name, MD Roel [address] [place] [address] Essential hypertension Social History Tobacco Use Types [...] Description 12/27/2025 8:45 AM EDT Office Visit [facility] ADULT DENTAL [address] [place] [address] Pili, [place] [address] [place] [address] documented as of this encounter Visit Diagnoses Diagnosis Essential hypertension Unspecified essential hypertension documented in this encounter Additional Health Concerns Assessment Noted Time PHQ-9 Depression Total Score: 0 12/31/19 24 10:54 AM EDT documented as of this encounter Care Teams Cardiac Exercise Specialist Relationship Specialty Start Date End Date Name, MD Roel [address] [place] [address] PCP - General Family Medicine 10/04/17 documented as of this encounter
--- OUTSIDE RECORDS SUMMARY | 2025-09-17 16:58 | XMS_ITS | Encounter Summary ---
Author Organization [facility] Address [address] [place] [address] 7t [place] [address] Care Team Providers Care Shop Service Technician Name Role Phone Name, Roel ORTEGA Primary Care Provider [phone] Encounter Details Date Type Department Care Team (Late st Contact Info) Description 12/18/2022 Abstract [facility] ADULT DENTAL [address] [place] [address] Najma Interiano, DDS [address] [place] [address] Social History Tobacco Use Types Packs/Day Years [...] EDT Office Visit [facility] [address] [place] [address] [place] Alejandre [address] [place] [address] documented as of this encounter Visit Diagnoses Not on filedocumented in this encounter Additional Health Concerns Assessment Noted Time PHQ-9 Depression Total Score: 0 11/03/19 23 8:54 AM EST documented as of this encounter Care Teams Shop Service Technician Relationship Specialty Start Date End Date Name, MD Roel [address] [place] [address] PCP - General Family Medicine 10/04/17 documented as of this encounter
--- OUTSIDE RECORDS SUMMARY | 2025-09-17 16:58 | XMS_ITS | Encounter Summary ---
Author Organization [employer] Address [address] [place] [address] Care Team Providers Care Weekday Babysitter Name Role Phone NameRoel MD Primary Care Provider [phone] Reason for Visit * Reason Onset Date Comments Appointment Request 12/09/2023 Encounter Details Date Type Department Care Team ([facility] st Contact Info) Description 12/09/2023 Telephone [facility] [address], [place] [id number] Name, MD Roel [address] [place] [address] Appointment Request Social History Tobacco Use Types [...] Description 12/27/2025 8:45 AM EDT Office Visit [facility] [address] [place] [address] Kathleen Alejandre [address] [place] [address] documented as of this encounter Visit Diagnoses Not on filedocumented in this encounter Additional Health Concerns Assessment Noted Time PHQ-9 Depression Total Score: 0 11/03/19 23 8:54 AM EST documented as of this encounter Care Teams Weekday Babysitter Relationship Specialty Start Date End Date Name, MD Roel [address] [place] [address] PCP - General Family Medicine 10/04/17 documented as of this encounter
--- NOTE | 2025-09-25 11:44 | HO.ANESPROP2 ---
Documented by User: Lidia Ladd NP 09/25/25 13:19 HPI - Anesthesia Eval Consult details Narrative: 60 yr old female for upper endoscopy s/p shoulder arthroscopy with GA, ETT 7, 01/2025 Follows [facility] for h/o atypical chest pain, last visit 04/2025 Uninodular goiter s/p thyroidectomy with papillary microcarcinoma: TSH 0.48 07/17/25 Anesthesia Pre-Procedure Meds Is the patient on any of the following meds?: GLP1/DPP4 and SGLT2 Inhib PMFSH Active Problems Active Problems: All Active Problems (Updated 05/10/25 @ 10:09 by CHRISTOPHER Farr) Nausea and vomiting (Acute) Left shoulder pain (Acute) Nausea (Acute) Epigastric pain (Acute) Impingement syndrome of left shoulder (Acute) Hypothyroid (Acute) Constipation (Acute) Tubular adenoma of colon (Acute) Extensor tenosynovitis of right wrist (Acute) Breast mass, right (Acute) Tubular adenoma of colon (Acute) IBS (irritable bowel syndrome) (Acute) Functional burping disorder (Acute) GERD (gastroesophageal reflux disease) (Acute) Diabetic retinopathy associated with type 2 diabetes mellitus (Acute) Diabetic 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 associated with type 2 diabetes mellitus (Acute) 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 (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 of insulin (Acute) Papillary microcarcinoma of thyroid (Acute) Gastroparesis (Acute) Diabetes mellitus with hyperglycemia (Acute) Type 2 diabetes mellitus with diabetic neuropathy, unspecified (Acute) Hyperlipidemia LDL goal <100 (Acute) Post-surgical hypothyroidism (Acute) Essential hypertension (Acute) Past Medical History Medical History Left shoulder pain Esophageal spasm Right wrist pain Mass of soft tissue of right upper extremity Difficulty swallowing Asthma Neuropathy Mild pulmonary hypertension Atypical chest pain Venous insufficiency Diabetic retinopathy associated with type 2 diabetes mellitus Diabetic 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 associated with type 2 diabetes mellitus 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 Mother Diabetes mellitus Daughter Diabetes mellitus Family history of problems with anesthesia: No Surgical History Surgical History Hx of shoulder surgery Hx of breast biopsy S/P appendectomy Hx of tubal ligation Hx of appendectomy History of bladder surgery H/O colonoscopy H/O thyroidectomy Hx of eye surgery History of esophagogastroduodenoscopy (EGD) History of cholecystectomy History of Problems with Anesthesia: No Social History Social History Household Members: Family Housing: House Are you a primary technical healthcare consultant to a significant other at home: No Do you presently have visiting nurse or other home services: No Alcohol intake: current Alcohol intake frequency: does not drink Comment: rings appropriately Patient Tobacco Use Status: Never used Tobacco Second Hand Smoke Exposure: No Advance Directives: No Advance Directives Information Provided: Yes service: No Current occupational status: disabled Current occupation: right handed Meds Allergies Allergy/AdvReac Type Severity Reaction Status Date / Time metformin AdvReac Mild stomach Verified 09/25/25 13:45 upset (is currently taking 250 mg daily) Home Medications ?Medication ?Instructions ?Recorded ?Confirmed ?Last Taken ?Type aspirin 81 mg tablet,delayed 81 mg PO DAILY 07/20/20 09/25/25 04/22/21 09:00 History release (Adult Low Dose Aspirin) metformin 500 mg tablet 250 mg PO DAILY 07/20/20 09/25/25 Unknown History hydrochlorothiazide 12.5 mg tablet 12.5 mg PO DAILY 01/07/22 09/25/25 Unknown History amlodipine 5 mg tablet 5 mg PO DAILY 03/03/22 09/25/25 01/26/25 History enalapril maleate 20 mg tablet 20 mg PO BEDTIME 03/03/22 09/25/25 Unknown History hydroxychloroquine 200 mg tablet 200 mg PO BID 09/09/22 09/25/25 Unknown History sertraline 100 mg tablet 100 mg PO QAM 09/09/22 09/25/25 Unknown History trazodone 100 mg tablet 100 mg PO BEDTIME PRN insomnia 09/09/22 09/25/25 Unknown History acetaminophen 500 mg tablet 500 mg PO Q6H PRN pain 11/17/22 09/25/25 Unknown History montelukast 10 mg tablet 10 mg PO BEDTIME 03/10/23 09/25/25 Unknown History cholecalciferol (vitamin D3) 25 50 mcg PO DAILY 02/28/24 09/25/25 Unknown History mcg (1,000 unit) capsule (Vitamin D3) albuterol sulfate 2.5 mg/3 mL 2.5 mg inhalation Q6H PRN wheezing 01/05/25 09/25/25 Unknown History (0.083 %) solution for nebulization albuterol sulfate 90 mcg/actuation 2 puff inhalation Q4-6H PRN 01/05/25 09/25/25 01/26/25 History aerosol inhaler Shortness Of Breath Or Wheezing Exam Narrative Narrative: EKG 06/2024 Vent. Rate : 080 BPM Atrial Rate : 080 BPM P-R Int : 132 ms QRS Dur : 076 ms QT Int : 410 ms P-R-T Axes : 062 009 036 degrees QTc Int : 472 ms Normal sinus rhythm Possible Left atrial enlargement Borderline ECG When compared with ECG of 27-FEB-2024 15:28, Heart rate has decreased Assessment and Plan Final Anesthetic Review Family History of Problems with Anesthesia: No History of Problems with Anesthesia: No Documented by User: Dinorah Martino MD 09/27/25 13:40 [facility] Past Medical History Medical History Left shoulder pain Esophageal spasm Right wrist pain Mass of soft tissue of right upper extremity Difficulty swallowing Asthma Neuropathy Mild pulmonary hypertension Atypical chest pain Venous insufficiency Diabetic retinopathy associated with type 2 diabetes mellitus Diabetic 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 associated with type 2 diabetes mellitus 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 Mother Diabetes mellitus Daughter Diabetes mellitus Surgical History Surgical History Hx of shoulder surgery Hx of breast biopsy S/P appendectomy Hx of tubal ligation Hx of appendectomy History of bladder surgery H/O colonoscopy H/O thyroidectomy Hx of eye surgery History of esophagogastroduodenoscopy (EGD) History of cholecystectomy Social History Social History Household Members: Family Housing: House Are you a primary technical healthcare consultant to a significant other at home: No Do you presently have visiting nurse or other home services: No Alcohol intake: current Alcohol intake frequency: does not drink Comment: rings appropriately Patient Tobacco Use Status: Never used Tobacco Second Hand Smoke Exposure: No Advance Directives: No Advance Directives Information Provided: Yes service: No Current occupational status: disabled Current occupation: right handed Meds Allergies Allergy/AdvReac Type Severity Reaction Status Date / Time metformin AdvReac Mild stomach Verified 09/25/25 13:45 upset (is currently taking 250 mg daily) Home Medications ?Medication ?Instructions ?Recorded ?Confirmed ?Last Taken ?Type aspirin 81 mg tablet,delayed 81 mg PO DAILY 07/20/20 09/25/25 04/22/21 09:00 History release (Adult Low Dose Aspirin) metformin 500 mg tablet 250 mg PO DAILY 07/20/20 09/25/25 Unknown History hydrochlorothiazide 12.5 mg tablet 12.5 mg PO DAILY 01/07/22 09/25/25 Unknown History amlodipine 5 mg tablet 5 mg PO DAILY 03/03/22 09/25/25 01/26/25 History enalapril maleate 20 mg tablet 20 mg PO BEDTIME 03/03/22 09/25/25 Unknown History hydroxychloroquine 200 mg tablet 200 mg PO BID 09/09/22 09/25/25 Unknown History sertraline 100 mg tablet 100 mg PO QAM 09/09/22 09/25/25 Unknown History trazodone 100 mg tablet 100 mg PO BEDTIME PRN insomnia 09/09/22 09/25/25 Unknown History acetaminophen 500 mg tablet 500 mg PO Q6H PRN pain 11/17/22 09/25/25 Unknown History montelukast 10 mg tablet 10 mg PO BEDTIME 03/10/23 09/25/25 Unknown History cholecalciferol (vitamin D3) 25 50 mcg PO DAILY 02/28/24 09/25/25 Unknown History mcg (1,000 unit) capsule (Vitamin D3) albuterol sulfate 2.5 mg/3 mL 2.5 mg inhalation Q6H PRN wheezing 01/05/25 09/25/25 Unknown History (0.083 %) solution for nebulization albuterol sulfate 90 mcg/actuation 2 puff inhalation Q4-6H PRN 01/05/25 09/25/25 01/26/25 History aerosol inhaler Shortness Of Breath Or Wheezing Exam Airway Mallampati Class: II TM Dist: >3cm Neck ROM: Full Heart: rrr Lungs: cta Assessment and Plan Assessment Anesthesia Assessment: Anesthesia Plan Discussed and Chart Reviewed Final Anesthetic Review NPO: Yes ASA Class: III Final Preanesthetic Review: No Changes in Pt Med Stat, Meds/Allgs Chart Reviewed, Consent Obtained/Reviewed and Anes Risks/Benef Reviewed Patient Risk: Intermediate Procedure Risk: Low Anesthetic Plan Anesthetic Plan: MAC: Disposition: Standard PACU
[2025-09-25 13:40] VITALS: BMI 26.2
[2025-09-27 13:29] VITALS: BMI 27.4
[2025-09-27 13:49] VITALS: BP 153/60; PULSE 81; RESP 16; TEMP 36.3; O2SAT 98
[2025-09-27] MEDS: Lactated Ringers 1,000 ML 100 ML IVCONT (13:51)
[2025-09-27 13:55] LABS: Glucose, Whole Blood 158 mg/dL (60-115)
--- NOTE | 2025-09-27 14:36 | MHC.SHP ---
Pre-Procedural Eval Section A - 24 Hr Update-Section A only Date of Service: 09/27/25 Section B - Complete if H&P > 30 days Chief Complaint: Dysphagia, gerd Details of Present Illness: Left shoulder pain Esophageal spasm Right wrist pain Mass of soft tissue of right upper extremity Difficulty swallowing Asthma Neuropathy Mild pulmonary hypertension Atypical chest pain Venous insufficiency Diabetic retinopathy associated with type 2 diabetes mellitus Diabetic 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 associated with type 2 diabetes mellitus [facility] (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 of insulin Papillary microcarcinoma of thyroid Gastroparesis Post-surgical hypothyroidism Gallstones Uninodular goiter Arthritis Retinopathy Depression Diabetes mellitus with hyperglycemia Type 2 diabetes mellitus with diabetic neuropathy, unspecified Hyperlipidemia LDL goal <100 Essential hypertension Vitamin D deficiency Surgical History S/P appendectomy Hx of tubal ligation Hx of appendectomy History of bladder surgery H/O colonoscopy H/O thyroidectomy Hx of eye surgery History of esophagogastroduodenoscopy (EGD) History of cholecystectomy Present Medications: see Short Stay Collaborative assessment Allergies: Allergies Allergy/AdvReac Type Severity Reaction Status Date / Time metformin AdvReac Mild stomach Verified 09/25/25 13:45 upset (is currently taking 250 mg daily) Review of Systems Review of Systems Comment: Ten point ROS negative Exam Exam Comment: Gen appear: No acute distress HEENT: no icterus Chest: No overt resp distress Abd: soft, nontender, nondistended Psych: Stable affect, answering questions appropriately Neuro: A/Ox3 noted to move all extremities spontaneously Ext: no peripheral edema Plan Diagnosis/Plan: Unchanged I have reviewed the history and physical and performed a pertinent physical examination on my patient. No changes have occurred unless specified. Time Spent With Patient Time: Total time managing care of this patient today ____ minutes.
[2025-09-27 15:10] VITALS: BP 93/56; PULSE 82; RESP 19; TEMP 36.3; O2SAT 99
--- NOTE | 2025-09-27 15:13 | P.OP_ITS ---
Operative Note Operative Note Date of Service: 09/27/25 Narrative: Procedure: Esophagogastroduodenoscopy Endoscopist: Michelle Abdul MD Indication: Dysphagia, N/V Anesthesia Provider: Shira Palafox CRNA Anesthesia Type: MAC ?? EGD Procedure:?? The procedure, indications, preparation and potential complications were reviewed with the patient with the help of promotional representative, who indicated understanding and gave written informed consent to proceed. A physical exam was performed. The endoscope was introduced through the mouth, and advanced to the second part of duodenum. The mucosa was carefully examined on slow withdrawal of the endoscope. The patient tolerated the procedure well. There were no immediate complications.? ? EGD Findings:? * Esophagus:? Normal mucosa noted in the entire esophagus. The Z line was at 30 cm displaced by a small hiatal hernia with the diaphragmatic pinch at 33 cm. Middle and lower esophagus forceps biopsies were obtained to rule out eosinophilic esophagitis. * Stomach:? Erythema and erosions noted in the gastric body with atrophic appearing mucosa in the antrum. There was also 7 mm linear ulcer in the cardia of the stomach along the greater curvature best visualized in retroflexion. Cold forceps biopsies were taken from the edge of the ulcer, as well as gastric body and antrum for histology. * Duodenum:? Mild edema and erythema noted in the duodenal bulb. Cold forceps biopsies were taken for histology. Additional intervention: Soft tip Savary wire was introduced through the biopsy channel of the gastroscope and advanced to the antrum. ?The gastroscope was then backed out. ?Savary Christopher bougie was advanced over the guidewire and the esophagus was dilated to 18 mm with resistance felt but no heme or tear was noted on relook. ? ? EGD Impressions:? * Normal esophagus (biopsy, dilation) * Hiatal hernia * Gastric ulcer (biopsy) * Gastritis (biopsy) * Bulbar duodenitis (biopsy) Recommendations:?? * Follow biopsy results. Our office will call or send a letter with results within 7-10 days. * Continue PPI therapy. * If H pylori +, patient will be prescribed eradication therapy followed by test of cure. * Avoid NSAIDs. * No obvious stenosis or stricture was noted in the esophagus today. Empiric dilation was performed. If patient does not report any improvement, consider barium swallow for further evaluation. Above has been reviewed with the patient.
[2025-09-27 15:15] VITALS: BP 101/62; PULSE 75; RESP 13; O2SAT 100
[2025-09-27 15:30] VITALS: BP 110/64; PULSE 72; RESP 13; TEMP 36.3; O2SAT 95
== END 2025-09-27 15:59 | disposition home or self-care (01) ==
PROVIDERS: PCP Internal Medicine Geriatric Medicine; Visit Provider Internal Medicine
PROC: 0DJ08ZZ Inspection of Upper Intestinal Tract, Via Natural or Artificial Opening Endoscopic (ICD-10-PCS; CPT 43235; principal; 2025-09-27 14:40)
DX: R13.10 Dysphagia, unspecified (principal); K21.9 Gastro-esophageal reflux disease without esophagitis; E11.65 Type 2 diabetes mellitus with hyperglycemia; R10.13 Epigastric pain; K31.84 Gastroparesis; R11.2 Nausea with vomiting, unspecified; K25.9 Gastric ulcer, unspecified as acute or chronic, without hemorrhage or perforation; K44.9 Diaphragmatic hernia without obstruction or gangrene; K29.80 Duodenitis without bleeding; K29.70 Gastritis, unspecified, without bleeding
CPT/HCPCS: 43239; 43248; 82947; 88305; 88313; 88342; C1769; J2003; J2704; J3010

== ENCOUNTER → 2025-09-27 12:19 | Outpatient (BNV) | payer MEDICAID, SELFPAY | PROVIDERS: PCP Internal Medicine Geriatric Medicine; Visit Provider Internal Medicine | DX: R13.10 Dysphagia, unspecified (principal); K25.9 Gastric ulcer, unspecified as acute or chronic, without hemorrhage or perforation; K29.70 Gastritis, unspecified, without bleeding; K29.80 Duodenitis without bleeding | CPT/HCPCS: 43239; 43248 ==

== ENCOUNTER 2025-09-28 15:01 | Outpatient (AMB) | payer MEDICAID, SELFPAY ==
--- NOTE | 2025-09-28 15:08 | A.OFFVIS_ITS ---
Vital Signs 09/28/25 15:09 Height 5 ft 1 in Weight 143 lb BMI 27.0 BP 99/56 L Blood Pressure Location Rt brachial Position Sitting Pulse 78 Intake Visit Reasons: 2 week FUV. n/s 08/01 Intake Note: Lolly presents to in office follow up of abd pain. CC: Patient c/o discomfort from his throat after her EGD yesterday. She states that she is better from abd pain. 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 n/s 08/01: Details: Assessment & Plan (1) Gastroparesis: Code(s): K31.84 - Gastroparesis Category: Medical (2) GERD (gastroesophageal reflux disease): Code(s): K21.9 - Gastro-esophageal reflux disease without esophagitis Category: Medical (3) Nausea and vomiting: Code(s): R11.2 - Nausea with vomiting, unspecified Category: Medical Plan Kazakh Angela ascencio Her GI regimen should consist of dicyclomine, Colace, Reglan 10 mg 4 times a day, omeprazole twice a day, and senna. - The patient is a 60-year-old female presenting with persistent nausea, vomiting, and abdominal pain, in the context of known gastroparesis. - Nausea and vomiting have been continuous for the past three days, worsening with food intake. - Abdominal pain rated at 6 to 7 out of 10, severely affecting the patient's ability to consume food. - again, she is uncertain if she has a metoclopramide in appears she may have run out of refills. Since all of her medications are in a pill pack I advise her to come back in 2 weeks and bring all of her medications with her. If she does have the Reglan in his taking in his directed then we need to look for another source of her pain. - Recent ultrasound revealed a mild fatty liver, with no major findings to fully account for symptoms. Return office visit in 2 weeks Medications: Refilled sennosides (senna) 17.2 mg (2 x 8.6 mg) PO BEDTIME PRN 60 tabs 6RF for constipation metoclopramide HCl (Reglan) 10 mg PO QIDACHS 120 tabs 6RF K31.84 - Gastroparesis omeprazole 40 mg PO BID 60 caps 6RF 30 days dicyclomine 20 mg PO .TIDAC 90 tabs 6RF 30 days K22.4 - Dyskinesia of esophagus TODAY'S VISIT [facility] Medical History Left shoulder pain Esophageal spasm Right wrist pain Mass of soft tissue of right upper extremity Difficulty swallowing Asthma Neuropathy Mild pulmonary hypertension Atypical chest pain Venous insufficiency Diabetic retinopathy associated with type 2 diabetes mellitus Diabetic 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 associated with type 2 diabetes mellitus 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 Papillary microcarcinoma of thyroid Gastroparesis Post-surgical hypothyroidism Gallstones Uninodular goiter Arthritis Retinopathy Depression Diabetes mellitus with hyperglycemia Type 2 diabetes mellitus with diabetic neuropathy, unspecified Hyperlipidemia LDL goal <100 Essential hypertension Vitamin D deficiency Surgical History Hx of shoulder surgery Hx of breast biopsy S/P appendectomy Hx of tubal ligation Hx of appendectomy History of bladder surgery H/O colonoscopy H/O thyroidectomy Hx of eye surgery History of esophagogastroduodenoscopy (EGD) History of cholecystectomy Family History Father No problems noted. Mother Diabetes mellitus Daughter Diabetes mellitus Social History Household Members: Family Housing: House Are you a primary respite care provider to a significant other at home: No Do you presently have visiting nurse or other home services: No Alcohol intake: current Alcohol intake frequency: does not drink Comment: rings appropriately Patient Tobacco Use Status: Never used Tobacco Second Hand Smoke Exposure: No service: No Current occupational status: disabled Current occupation: right handed Female Reproductive History Menstrual Age of Menarche: 8 Review of Systems Const Denies fatigue, Denies fever(s), Denies night sweats, Denies poor appetite and Denies weight loss ENT Reports Normal hearing present, Denies dental pain, Denies dysphagia, Denies hearing loss, Denies mouth pain, Denies odynophagia, Denies throat swelling, Denies tongue swelling and Reports other (Dentition adequate) Card Reports no additional complaints Resp Reports no additional complaints GI Details: Denies abdominal pain, Denies melena, Denies bloating, Denies hematochezia, Reports constipation, Denies GI cramping, Denies dysphagia, Denies excessive flatus, Reports early satiety, Reports heartburn, Denies diarrhea, Denies nausea, Denies odynophagia, Denies vomiting and Denies hematemesis Skin/Breast Denies pruritus, Denies lesions, Denies rash and Denies jaundice Neuro Reports Normal hearing present and Denies Abnormal speech present Endo Denies fatigue Aller/Immun Denies throat swelling and Denies tongue swelling Physical Exam Vital Signs: Last Vital Signs Pulse 78 09/28/25 15:09 BP 99/56 L 09/28/25 15:09 BMI result Body Mass Index 27.0 Const General: cooperative, no acute distress, well developed and well groomed Nutritional Appearance: well nourished, obese and overweight Orientation/consciousness: oriented to person, oriented to place and oriented to time Limitations: No language barrier, ambulation with cane, ambulation with walker and wheelchair HEENT Head: Yes normocephalic and Yes atraumatic Eyes General: appearance normal, both eyes and all related structures Pupils: Equal, round and reactive pupils present Neck Neck: Yes normal visual inspection and Yes no lymphadenopathy Thyroid: Thyroid normal Resp Effort & Inspection: normal respiratory effort and able to speak in complete sentences Auscultation: clear to auscultation bilaterally Cardio Rate: regular rate Rhythm: regular rhythm Heart sounds: Normal, physiologic split S2 sound present Peripheral pulses: radial pulses present and posterior tibial pulses present GI Inspection: No distended and No Abdominal panniculus present Palpation (GI): Soft to palpation, nontender, no guarding, not rigid and No hepatosplenomegaly present Percussion: Yes normal to percussion Auscultation: normal bowel sounds Rectal Exam - Female: deferred Skin General skin exam: no rashes or lesions noted, turgor normal, skin not dry, no jaundice, No spider nevi and no striae Rashes: no rashes Nails: normal Neuro General: oriented to person, oriented to place and oriented to time Cranial nerves: Yes Equal, round and reactive pupils present and Yes Normal hearing present Speech: No Abnormal speech present Extrem General: Yes normal to inspection, No clubbing, No cyanosis and No edema Psych Appearance: grossly normal and well kempt Mental Status: mental status grossly normal Speech and movement: Normal speech and movement present Affect: normal affect Attitude: cooperative Thought process: Normal thought process present and not confabulating Thought content: Normal thought content present Insight: Limited insight present (Psych) Judgement: Limited judgement present (Psych) Results Reviewed Results Reviewed: EGD 09/27/25? EGD Findings:? * Esophagus:? Normal mucosa noted in the entire esophagus. The Z line was at 30 cm displaced by a small hiatal hernia with the diaphragmatic pinch at 33 cm. Middle and lower esophagus forceps biopsies were obtained to rule out eosinophilic esophagitis. * Stomach:? Erythema and erosions noted in the gastric body with atrophic appearing mucosa in the antrum. There was also 7 mm linear ulcer in the cardia of the stomach along the greater curvature best visualized in retroflexion. Cold forceps biopsies were taken from the edge of the ulcer, as well as gastric body and antrum for histology. * Duodenum:? Mild edema and erythema noted in the duodenal bulb. Cold forceps biopsies were taken for histology. Additional intervention: Soft tip Savary wire was introduced through the biopsy channel of the gastroscope and advanced to the antrum. ?The gastroscope was then backed out. ?Savary Christopher bougie was advanced over the guidewire and the esophagus was dilated to 18 mm with resistance felt but no heme or tear was noted on relook. ? ? EGD Impressions:? * Normal esophagus (biopsy, dilation) * Hiatal hernia * Gastric ulcer (biopsy) * Gastritis (biopsy) * Bulbar duodenitis (biopsy) Recommendations:?? * Follow biopsy results. Our office will call or send a letter with results within 7-10 days. * Continue PPI therapy. * If H pylori +, patient will be prescribed eradication therapy followed by test of cure. * Avoid NSAIDs. * No obvious stenosis or stricture was noted in the esophagus today. Empiric dilation was performed. If patient does not report any improvement, consider barium swallow for further evaluation. BIOPSY Biopsy report not yet available Assessment & Plan Assessment & Plan (1) Gastroparesis: Code(s): K31.84 - Gastroparesis Category: Medical (2) GERD (gastroesophageal reflux disease): Code(s): K21.9 - Gastro-esophageal reflux disease without esophagitis Category: Medical (3) Nausea and vomiting: Code(s): R11.2 - Nausea with vomiting, unspecified Category: Medical (4) Constipation: Code(s): K59.00 - Constipation, unspecified Category: Medical Plan Kazakh # V Her GI regimen should consist of dicyclomine, Colace, Reglan 10 mg 4 times a day, omeprazole twice a day, and senna. Subjective Patient reports feeling better since the last visit after resuming metoclopramide. Recent endoscopy performed yesterday; biopsies were taken and results are pending. She was informed there were gastric ulcers and erosions. She is taking omeprazole twice daily. She uses daily aspirin for a cardiac c ondition. Bowel movements are normal. Denies abdominal pain. Esophageal dilation was performed during the endoscopic procedure to address swallowing difficulties; given the timing (yesterday) and minimal intake since, she is unsure if swallowing has improved. Relevant Past Medical, Social, and Family History Daily aspirin use for a cardiac condition. Objective - Endoscopy revealed multiple small gastric erosions and one approximately 7 mm gastric ulcer. - Esophageal dilation performed during endoscopy. Assessment & Plan Gastric ulcers: Gastric erosions and a 7 mm ulcer identified on recent endoscopy. Etiology uncertain; NSAID/aspirin-related etiology discussed. Biopsy results pending for H. pylori and other causes. - Continue omeprazole twice daily. - If continuing daily aspirin for cardiac indication, use enteric-coated formulation (EC); alternatively, consider holding aspirin temporarily to allow mucosal healing if clinically permissible. - Await biopsy results and review when available. - Follow up in approximately 10 weeks to reassess symptoms and discuss pathology results. Dysphagia: Esophageal dilation performed. Patient has not yet noted symptomatic improvement (procedure was yesterday with minimal oral intake post-procedure). - Monitor swallowing symptoms over the coming weeks. - Reassess at follow-up in 10 weeks. Coding Level of Care Code Est Pt Level 3 (22181) Diagnoses Gastroparesis K31.84 GERD (gastroesophageal reflux disease) K21.9 Nausea and vomiting R11.2 Constipation K59.00
[2025-09-28 15:09] VITALS: BP 99/56; PULSE 78; BMI 27.0
--- NOTE | 2025-09-28 15:09 | MHC.OFFVIS ---
Vital Signs 09/28/25 15:09 Weight 143 lb 11.862 oz Intake Visit Reasons: 2 week FUV. n/s 08/01 Intake Note: Patient in office today in follow up of abd pain. CC: Patient underwent EGD yesterday and states that she has mild discomfort from her throat. 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 Papillary microcarcinoma of thyroid Gastroparesis Post-surgical hypothyroidism Gallstones Uninodular goiter Arthritis Retinopathy Depression Diabetes mellitus with hyperglycemia Type 2 diabetes mellitus with diabetic neuropathy, unspecified Hyperlipidemia LDL goal <100 Essential hypertension Vitamin D deficiency Surgical History Hx of shoulder surgery Hx of breast biopsy S/P appendectomy Hx of tubal ligation Hx of appendectomy History of bladder surgery H/O colonoscopy H/O thyroidectomy Hx of eye surgery History of esophagogastroduodenoscopy (EGD) History of cholecystectomy Family History Father No problems noted. Mother Diabetes mellitus Daughter Diabetes mellitus Social History Household Members: Family Housing: House Are you a primary resident care assistant to a significant other at home: No Do you presently have visiting nurse or other home services: No Alcohol intake: current Alcohol intake frequency: does not drink Comment: rings appropriately Patient Tobacco Use Status: Never used Tobacco Second Hand Smoke Exposure: No service: No Current occupational status: disabled Current occupation: right handed Female Reproductive History Menstrual Age of Menarche: 8 Coding
--- OUTSIDE RECORDS SUMMARY | 2025-09-28 20:04 | XMS_ITS | Encounter Summary ---
Author Organization [facility] [facility] [facility] Address [address] [place] [address] [address] [place] [address] Care Team Providers Care Tinsmith Apprentice Name Role Phone Name, Roel ORTEGA Primary Care Provider [phone] Encounter Details Date Type Department Care Team (Late st Contact Info) Description 09/15/2022 Abstract [facility] [address] [place] [address] Dental, Provider, DDS Social History Tobacco Use [...] Care Team (Late st Contact Info) Description 12/17/2025 3:15 PM EST Office Visit [facility] [address] [place] [address] Name, MD Roel [address] [place] [address] 12/27/2025 8:45 AM EDT Office Visit [facility] [address] [place] [address] Kathleen Alejandre [address] [place] [address] documented as of this encounter Visit Diagnoses Not on filedocumented in this encounter Care Teams Tinsmith Apprentice Relationship Specialty Start Date End Date Name, MD Roel [address] [place] [address] PCP - General Family Medicine 10/04/17 documented as of this encounter
--- OUTSIDE RECORDS SUMMARY | 2025-09-28 20:04 | XMS_ITS | Encounter Summary ---
Author Organization [employer] Address [address] [facility] 7[address] [place] [address] Care Team Providers Care Pressure Tester Name Role Phone Name, Roel ORTEGA Primary Care Provider Reason for Visit * Reason Comments Med Refill Encounter Details Date Type Department Care Team ([facility] st Contact Info) Description 06/05/2024 Refill [facility] [address] [place], [place] [phone] Name, MD Roel [address] [place] [address] Essential hypertension Social History Tobacco Use Types [...] Description 12/17/2025 3:15 PM EST Office Visit [facility] [address] [place] [id number] Name, MD Roel [address] [place] [address] 12/27/2025 8:45 AM EDT Office Visit [facility] [address] [place] [address] Kathleen Alejandre [address] [place] [address] documented as of this encounter Visit Diagnoses Diagnosis Essential hypertension Unspecified essential hypertension documented in this encounter Additional Health Concerns Assessment Noted Time PHQ-9 Depression Total Score: 0 12/31/19 24 10:54 AM EDT documented as of this encounter Care Teams Pressure Tester Relationship Specialty Start Date End Date Name, MD Roel [address] [place] [address] PCP - General Family Medicine 10/04/17 documented as of this encounter
--- OUTSIDE RECORDS SUMMARY | 2025-09-28 20:04 | XMS_ITS | Encounter Summary ---
Author Organization [employer] [facility] Address [address] [place] [address] 7[address] [place] [address] Care Team Providers Care Chief Meter Reader Name Role Phone Name, Roel ORTEGA Primary Care Provider [phone] Encounter Details Date Type Department Care Team (Late Contact Info) Description 12/18/2022 Abstract [facility] AD[facility] [address] [place] [address] Najma Interiano, DDS [address] [place] [address] Social History Tobacco Use Types Packs/Day Years [...] Department Care Team (Late Contact Info) Description 12/17/2025 3:15 PM EST Office Visit [facility] [address] [place] [address] Name, MD Roel [address] [place] [address] 12/27/2025 8:45 AM EDT Office Visit [facility] [address] [place], [place] [phone] Pili, Kathleen [address] [place], [place] [phone] documented as of this encounter Visit Diagnoses Not on filedocumented in this encounter Additional Health Concerns Assessment Noted Time PHQ-9 Depression Total Score: 0 11/03/19 8:54 AM EST documented as of this encounter Care Teams Chief Meter Reader Relationship Specialty Start Date End Date Name, MD Roel [address] [place] [id number] PCP - General Family Medicine 10/04/17 documented as of this encounter
--- OUTSIDE RECORDS SUMMARY | 2025-09-28 20:04 | XMS_ITS | Encounter Summary ---
Author Organization [employer] Address [address] [facility] 7t [place] [address] Care Team Providers Care Linen Grader Name Role Phone Name, Roel ORTEGA Primary Care Provider [phone] Reason for Visit * Reason Onset Date Comments Appointment Request 12/09/2023 Encounter Details Date Type Department Care Team ([facility] st Contact Info) Description 12/09/2023 Telephone [facility] [address] [place], [place] [phone] Name, MD Roel [address] [place] [address] Appointment Request Social History Tobacco Use Types [...] Description 12/17/2025 3:15 PM EST Office Visit [facility] [address] [place] [address] Name, MD Roel [address] [place] [address] 12/27/2025 8:45 AM EDT Office Visit [facility] [address] [place] [address] Kathleen Alejandre [address] [place] [address] documented as of this encounter Visit Diagnoses Not on filedocumented in this encounter Additional Health Concerns Assessment Noted Time PHQ-9 Depression Total Score: 0 11/03/19 23 8:54 AM EST documented as of this encounter Care Teams Linen Grader Relationship Specialty Start Date End Date Name, MD Roel [address] [place] [address] PCP - General Family Medicine 10/04/17 documented as of this encounter
--- OUTSIDE RECORDS SUMMARY | 2025-09-28 20:04 | XMS_ITS | Encounter Summary ---
Author Organization [employer] Address [address] [facility] 7t [place] [address] Care Team Providers Care Hand Shoe Cutter Name Role Phone NameRoel MD Primary Care Provider [phone] Reason for Visit * Reason Onset Date Comments Results 04/19/2024 Encounter Details Date Type Department Care Team ([facility] st Contact Info) Description 04/19/2024 Telephone [facility] [address] [place], [place] [phone] Name, MD Roel [address] [place] [address] Results Social History Tobacco Use Types Packs/Day [...] t he electric, gas, oil or water Social Project threatened to shut off services in your [...] Description 12/17/2025 3:15 PM EST Office Visit [facility] [address] [place] [address] Name, MD Roel [address] [place] [address] 12/27/2025 8:45 AM EDT Office Visit [facility] [address] [place] [address] Pili Kathleen [address] [place] [address] documented as of this encounter Visit Diagnoses Not on filedocumented in this encounter Additional Health Concerns Assessment Noted Time PHQ-9 Depression Total Score: 0 12/31/19 24 10:54 AM EDT documented as of this encounter Care Teams Hand Shoe Cutter Relationship Specialty Start Date End Date Name, MD Roel [address] [place] [address] PCP - General Family Medicine 10/04/17 documented as of this encounter
--- OUTSIDE RECORDS SUMMARY | 2025-09-28 20:04 | XMS_ITS | Clinical Summary ---
Author Organization [employer] Address [address] [place] [address] 7t [place] [address] Care Team Providers Care Sprinkler Truck Driver Name Role Phone Name, Roel ORTEGA Primary Care Provider [phone] Allergies Active Allergy Reactions Criticality Noted Date [...] Needle Sandy U/F 32G X 4 MM [facility] [place] 10/21/19 23 Active gabapentin (Neurontin) 300 MG [...] Continuous Glucose Sensor (FreeStyle Rama 2 Sensor) [facility] [place] 12/22/19 24 Active acetaminophen (Tylenol) 500 MG [...] <100 04/11/2024 IBS (irritable bowel syndrome) 04/11/2024 custodial (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 of insulin ([facility]) Mass of soft tissue of right upper extremity Post-surgical hypothyroidism 04/11/2024 Right wrist pain 04/11/2024 S/P appendectomy 04/11/2024 Tubular adenoma of colon 04/11/2024 Missing teeth, acquired 03/30/2024 Asthma 09/22/2023 09/22/2023 Gastroesophageal reflux disease 09/22/2023 09/22/2023 Seasonal allergic rhinitis 02/19/2023 Dental plaque 02/04/2023 Gingival recession, localized 02/04/2023 Chronic low back pain 09/15/2022 Urinary incontinence 09/15/2022 Papillary thyroid carcinoma ([facility]) 01/15/2021 Overview (02/19/2023): S/p R thyroidectomy Nonproliferative diabetic retinopathy 01/17/2019 Overview (02/09/2024): Follows at [facility] Diabetic 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 11/17/2017 Hypertension 10/04/2017 Diabetes mellitus 10/04/2017 Resolved Problems Problem Noted Date Diagnosed Date Resolved Date Diabetic neuropathy 09/22/2023 09/22/2023 12/24/19 Extrinsic asthma without complication 02/19/2023 12/24/2023 Thyroid nodule 09/15/2022 02/19/2023 Encounters Date Type Department Care Team Description 09/27/2025 Orders Only GENERIC EXTERNAL DATA DEPARTMENT Provider, Generic External Data 08/16/2025 Refill [facility] [address] [facility] [place] [address] Roel Rock MD Essential hypertension 08/02/2025 Orders Only GENERIC EXTERNAL DATA DEPARTMENT Provider, Generic External Data 07/23/2025 Refill [facility] [address] [facility] [place] [address] Roel Rock MD 07/18/2025 Results Follow-Up [facility] [address] Roel Rock MD POCT Glucose, Albumin, Random Urine W/Creatinine, HIV-1/2 Antigen and Antibodies, Fourth Generation, with Reflexes 07/17/2025 3:15 PM EDT Office Visit [facility] [place] [address] Roel Rock MD Type 2 diabetes mellitus with other specified complication, with long-term current use of insulin ([facility]) (Primary Dx); Screening for HIV (human immunodeficiency virus); Encounter for immunization 07/17/2025 Orders Only GENERIC EXTERNAL DATA DEPARTMENT Provider, Generic External Data 07/17/2025 Travel 07/04/2025 Orders Only [facility] External Provider, [facility] from Last 3 Months Immunizations Immunization Administration [...] Description 12/17/2025 3:15 PM EST Office Visit [facility] [address] [place] [address] Name, MD Roel [address] [place] [address] 12/27/2025 8:45 AM EDT Office Visit [facility] ADULT DENTAL [address] [place] [address] Pili, Kathleen [address] [place] [address] Health Maintenance Due Date Last Done Comments [...] Associated Diagnosis Comments GLUCOSE, WHOLE BLOOD Routine 09/27/2025 1:46 PM EST GLUCOSE, WHOLE BLOOD Routine 08/02/2025 8:33 AM [...] use of insulin ([facility]) POCT GLUCOSE Routine 07/17/2025 3:19 PM EDT Type 2 diabetes mellitus with other specified complication, with long-term current use of insulin ([facility]) US ABDOMEN COMPLETE Routine 07/04/2025 1 0:36 AM EDT PROPHYLAXIS - ADULT Routine 06/27/2025 1 0:00 AM EDT Dental plaque BITEWINGS - 4 RADIOGRAPHIC IMAGES Routine 06/27/2025 10:00 AM EDT Excessive attrition of teeth Gingival recession, localized Dental plaque Missing teeth, acquired PERIODIC ORAL EVALUATION - ESTABLISHED PATIENT Routine 06/27/2025 10:00 AM EDT LIPID PANEL, STANDARD Routine 03/30/2025 8:51 AM [...] Maintenance Results * (ABNORMAL) Glucose, Whole Blood (09/27/2025 1:46 PM EST) Glucose, Whole Blood 158(H) 60 - 115 mg/dL [facility] Comment:METER #: [id number] 09/27/2025 1:46 PM EST 09/27/2025 1:55 PM EST us Generic External Data Provider LAB BLOOD ORDERAB LES Final Result [facility] [address] [place] [phone] * (ABNORMAL) Glucose, Whole Blood (08/02/2025 8:33 AM EDT) Glucose, Whole Blood 194(H) 60 - 115 mg/dL [facility] Comment:METER #: [id number] 0Testing performed in the Endocrinology Department [address] , [address], [facility]. 08/02/2025 8:33 AM EDT 08/02/2025 8:36 AM EDT us Generic External Data Provider LAB BLOOD ORDERAB LES Final Result Performing Organization Address [facility] Co de Phone Number [facility] [address] [place] [phone] * TSH with Reflex to Free T4 (07/17/2025 3:56 PM EDT) TSH reflex Free T4 0.48 0.32 - 4.0 uIU/mL [facility] 07/17/2025 3:56 PM EDT 07/17/2025 6:05 PM EDT us Generic External Data Provider LAB BLOOD ORDERAB LES Final Result Performing Organization Address [facility] de Phone Number [facility] [address] [place] [phone] * Albumin, Random Urine W/Creatinine (07/17/2025 3:56 PM EDT) Creatinine, Urine 58.29 mg/dL [facility] Microalbumin Urine 14.0 mg/L [facility] Microalbum Creatinine Ratio Ur 24.0 <30 ug/mg cr [facility] Comment:Albumin/Creatinine R atio Reference Ranges: Normal: < 30 ug/mg creatinine Microalbuminuria: 30 - 300 ug/mg creatinineClinical Albuminuria: > 300 ug/mg creatinine Urine (Urine, Random) 07/17/2025 3:56 PM EDT 07/17/2025 6:10 PM EDT Roel Rock MD LAB URINE ORDERABLES Final Resul t Performing Organization Address [facility] Co de Phone Number [facility] [address] [place] [phone] * HIV-1/2 Antigen and Antibodies, Fourth Generation, with Reflexes (07/17/2025 3:56 PM EDT) HIV AB/AG Nonreactive Nonreactive [facility] Comment:HIV-1 p24 Ag and/or HIV-1/HIV-2 Ab not detected.A test result that is nonreactive does not exclude thepossibility of exposure to or infection with HIV-1 and/orHIV-2. Nonreactive results in this assay for individualswith prior exposure to HIV-1 and/or HIV-2 may be due toantigen and antibody levels that are below the limit ofdetection of this assay.The [employer] HIV Ag/Ab Combo assay result andsupplemental assay results should be interpreted inconjunction with the patient's clinical presentation,history and other laboratory results. If the results areinconsistent with clinical evidence, additional testing issuggested to confirm the result. Blood Venous blood specimen / Unknown 07/17/2025 3:56 PM EDT 07/17/2025 6:05 PM EDT us Roel Rock MD LAB BLOOD ORDERABLES Final Resul t [facility] [address] [place] [phone] [phone] * (ABNORMAL) Hemoglobin A1c (07/17/2025 3:56 PM EDT) Hemoglobin A1c 7.3(H) <6.0 % [facility] Comment:Hemoglobin A1C Refer ence Range Adults: 4.8 - 6.0 % Non diabetic: < 6.0 % Goal: < 7.0 %Additional Action Suggested: > 8.0 %Note: Hemoglobin A1c results are invalid for patients with abnormal amounts of HbF. Blood transfusions may impact the HbA1c concentration in the patient sample. Estimated Average Glucose 163 mg/dL [facility] Comment:eAG = Estimated ave rage glucose which is %A1C expressed asaverage glucose, using the formula of the V4F-AsypaocDhfstfc Glucose study (ADAG), Diabetes Care, Vol.31,#8,May. 2007 07/17/2025 3:56 PM EDT 07/17/2025 6:05 PM EDT us Generic External Data Provider LAB BLOOD ORDERAB LES Final Result [facility] [address] [place] [phone] * POCT Glucose (07/17/2025 3:19 PM [...] AM EDT Narrative 07/04/2025 11:31 AM EDT [address] [address] Ultrasound Report Signed Patient: Lolly Mcginnis MR#: M [id number] : 1965 Acct:[id number] Age/Sex: 60 / F ADM Date: 07/04/25 Loc: HO.US Attending Dr: Selena WHITE Ordering Physician: Selena Giang Date of Service: 07/04/25 Procedure(s): US abdomen complete Accession Number(s): [id number] cc: Selena Giang; Name,Roel ORTEGA Reason for [...] 07/04/25 1128 DD/ 1036 TD/TT: 07/04/25 1053 Head Of Marketing Analytics: Procedure Note Donotuseinterpreter, Image - 07/04/2025 [place] [address] Ultrasound Report Signed Patient: Lolly Mcginnis [facility]#: M [id number] : 1965Acct:[id number] Age/Sex: 60 / FADM Date: 07/04/25 Loc: HO.US Attending Dr: Selena WHITE Ordering Physician: Selena Giang Date of Service: 07/04/25 Procedure(s): US abdomen complete Accession Number(s): [id number] cc: Selena Giang; Name,Roel ORTEGA Reason for [...] 07/04/25 1128 DD/ 1036 TD/TT: 07/04/25 1053 Head Of Marketing Analytics: us [facility] External Provider IMG US PROCEDURES Edited Result - Final * Lipid Panel, Standard (03/30/2025 8:51 AM EDT) Triglycerides 58 <150 mg/dL [facility] Comment:Desirable Triglyceri de: less than 150 mg/dLBorderline High Triglyceride 150-199 mg/dLHigh Triglyceride: 200-499 mg/dLVery High Triglyceride: greater than or equal to 5OO mg/dL Cholesterol 167 <200 mg/dL [facility] Comment:Desirable Cholestero l: less than 200 mg/dLBorderline High Cholesterol: 200-239 mg/dLHigh Cholesterol: greater than 239 mg/dL LDL Cholesterol Calculated 91 <100 mg/dL [facility] Comment:Desirable LDL: less than 100 mg/dLNear Optimal/Above Optimal LDL: 110- 129 mg/dLBorderline High LDL: 130-159 mg/dLHigh LDL: 160-189 mg/dLVery High LDL: greater than or equal to 190 mg/dL HDL Cholesterol 65 >40 mg/dL [facility] Comment:Desirable HDL: great er than 40 mg/dL Note: This HDL assay may give artificially low results in patients with liver disease. Blood Venous blood specimen / Unknown 03/30/2025 8:51 AM EDT 03/30/2025 11:04 AM EDT Roel Rock MD LAB BLOOD ORDERABLES Final Resul t [facility] [address] [place] [phone] * BI Mammogram Screening Tomosynthesis Bilateral (03/29/2025 2:44 PM EDT) Anatomical Region Laterality Modality Breast Bilateral Mammography 03/29/2025 2:44 PM EDT Narrative 04/07/2025 10:52 AM EDT [address] [place] [address] Mammography Report Signed Patient: Lolly Mcginnis MR#: [id number] : 1965 Acct:[id number] Age/Sex: 60 / F ADM Date: 03/29/25 Loc: HO.MAMMO Attending Dr: Roel Rock MD Ordering Physician: Roel Rock MD Results: 1Negative Date of Service: 03/29/25 Follow Up: 1 Year From Orig ina Mammogram Procedure(s): MM tomosynthesis screening BI Accession Number(s): [id number] cc: Roel Rock MD EXAMINATION: MM SCREENING [...] 04/07/25 1048 DD/ 1444 TD/TT: 03/29/25 1457 Head Of Marketing Analytics: Procedure Note Donotuseinterpreter, Image - 04/07/2025 [facility] [address] [place] [address] Mammography Report Signed Patient: Lolly Mcginnis [facility]#: M [id number] : 1965Acct:[id number] Age/Sex: 60 / FADM Date: 03/29/25 Loc: HO.MAMMO Attending Dr: Roel Rock MD Ordering Physician: Roel Rock MDResults: 1Negative Date of Service: 03/29/25Follow Up: 1 Year From Orig inal Mammogram Procedure(s): MM tomosynthesis screening BI Accession Number(s): [id number] cc: Roel Rock MD EXAMINATION: MM SCREENING [...] 04/07/25 1048 DD/ 1444 TD/TT: 03/29/25 1457 Head Of Marketing Analytics: us Roel Rock MD IMG BI PROCEDURES Edited Result - Final * Hepatitis C Antibody with Reflex to HCV, RNA, Quantitative, Real-Time PCR (04/17/2024 11:32 AM EDT) Hepatitis C Antibody Nonreactive Nonreactive [facility] Comment:Antibodies to HCV no t detected; does not exclude early acuteHCV infection. Blood Venous blood specimen / Unknown 04/17/2024 11:32 AM EDT 04/17/2024 1:13 PM EDT us Roel Rock MD LAB BLOOD ORDERABLES Final Resul t [facility] [address] [place] [phone] * Image-Guided Pap with Age-Based Screening Protocols (01/13/2023 11:48 AM EDT) Comment [facility] Comment: This order for age-based cervical cancer and STI screening follows ACOG guidelines(PB 168, 140, PJB526). See individual assays for performing site location. Clinical Information: None given [facility] LMP: NONE GIVEN [facility] Prev. PAP: NONE GIVEN [facility] Prev. BX: NONE GIVEN [facility] SOURCE: None given [facility] [place] [employer] Statement Of Adequacy: SATISFACTORY FOR EVALUATION [facility] [place] [employer] Interpretation/Re sult: [facility] [place] [facility] [facility] Comment: Negative for intraepithelial lesion or malignancy. Atrophic pattern; predominantly parabasal cells Comment: This Pap test has been evaluated with computer assisted technology. [facility] [place] [facility] [facility] Zoo Caretaker: Arie callaway [employer] [place] [facility] Comment: SXA, CT(ASCP) CT screening location: [address] [address] (Always Message) [facility] [employer] Comment: EXPLANATORY NOTE: The Pap is a [...] HPV nRNA E6/E7 Not Detected Not Detected [facility] Comment: Methodology: Weight Trainer-Mediated Amplification This assay detects E6/E7 viral messenger RNA (mRNA) from 14 high-risk HPV types (16,18,31,33,35,39,45,51,52,56,58,59,66,68). Cervical sources are required for HPV testing. If a vaginal source from a patient who has had a total hysterectomy with removal of cervix was submitted, please contact the testing laboratory for alternative testing options. For additional information, please refer to http://education.ams AG/faq/KBO432o9 (This link if provided for information/ educational purposes only.) Cytology specimen container (physical object) 01/13/2023 11:48 AM EDT 01/14/2023 2:03 AM EDT Erica Joseph CNM LAB BLOOD ORDERABLES Janis kaba Result [facility] [address] [place] [phone] [facility] [place] [facility] [address] [place] [phone] * Hm Colonoscopy (11/14/2018 4:17 PM EST) Colonoscopy Normal Normal Narrative Ami Giraldo - 11/14/2018 4:17 PM EST Recommended 5 year follow up us Historical Provider MD HEALTH MAINTENANCE Final Result from Last 3 Months or Most Recently Relevant to Health Maintenance Insurance [facility] C3 DENTAL-[facility] MEDICAID STAND ADULT Care Teams Sprinkler Truck Driver Relationship Specialty Start Date End Date Name, MD Roel [address] [place] [phone] PCP - General Family Medicine 10/04/17
--- OUTSIDE RECORDS SUMMARY | 2025-09-28 20:04 | XMS_ITS | Encounter Summary ---
Author Organization [employer] Address [address] [facility] 7t [place] [address] Care Team Providers Care Pantograph Machine Set Up Operator Name Role Phone Name, Roel ORTEGA Primary Care Provider [phone] Encounter Details Date Type Department Care Team ([facility] Contact Info) Description 07/06/2023 Telephone [facility] [address] [place], [place] [phone] Name, MD Roel [address] [place] [address] Social History Tobacco Use Types Packs/Day Years [...] letter to schedule f/u appointment with coleen. Destination Imagination Coordinator does not see any documentation on letter or recall. Please contact pt at [phone] (Barbadian) documented in this encounter Plan of Treatment Upcoming Encounters Date Type Department Care Team (Late st Contact Info) Description 12/17/2025 3:15 PM EST Office Visit [facility] [address] [place] [address] Roel Rock MD [address] [place] [address] 12/27/2025 8:45 AM EDT Office Visit [facility] ADULT DENTAL [address] [place] [address] Kathleen Alejandre [address] [place] [address] documented as of this encounter Visit Diagnoses Not on filedocumented in this encounter Additional Health Concerns Assessment Noted Time PHQ-9 Depression Total Score: 0 11/03/19 23 8:54 AM EST documented as of this encounter Care Teams Pantograph Machine Set Up Operator Relationship Specialty Start Date End Date NameRoel MD [address] [place] [phone] PCP - General Family Medicine 10/04/17 documented as of this encounter
--- OUTSIDE RECORDS SUMMARY | 2025-09-28 20:04 | XMS_ITS | Encounter Summary ---
Author Organization [employer] Address [address] [facility] 7t [place] [address] Care Team Providers Care Custom Miller Name Role Phone Name, Roel ORTEGA Primary Care Provider [phone] Reason for Visit * Reason Comments Med Refill Encounter Details Date Type Department Care Team ([facility] st Contact Info) Description 05/12/2025 Refill [facility] [address] [place] [address] Hellen Porter, ANP [address] [place] [address] Mild persistent asthma without complication Social History [...] Description 12/17/2025 3:15 PM EST Office Visit [facility] MED[facility]INE [address] [place] [phone] Roel Rock MD [address] [place] [address] 12/27/2025 8:45 AM EDT Office Visit [facility] ADULT DENTAL [address] [place] [address] Kathleen Alejandre [address] [place] [address] documented as of this encounter Visit Diagnoses Diagnosis Mild persistent asthma without complication documented in this encounter Additional Health Concerns Assessment Noted Time PHQ-9 Depression Total Score: 9 03/05/20 25 2:25 PM EDT documented as of this encounter Care Teams Custom Miller Relationship Specialty Start Date End Date Roel Rock MD [address] [place] [phone] PCP - General Family Medicine 10/04/17 documented as of this encounter
--- OUTSIDE RECORDS SUMMARY | 2025-09-28 20:04 | XMS_ITS | Encounter Summary ---
Author Organization [facility] Address [address] [place] [address] 7t [place] [address] Care Team Providers Care Hydro Sprayer Operator Name Role Phone Name, Roel ORTEGA Primary Care Provider [phone] Encounter Details Date Type Department Care Team (Late Contact Info) Description 03/19/[address] [facility] [address] [place] [phone] Name, MD Roel [address] [place] [address] Social History Tobacco Use Types Packs/Day Years [...] Upcoming Encounters Date Type Department Care Team ([facility] Contact Info) Description 12/17/2025 3:15 PM EST Office Visit [facility] [address] [place] [phone] Name, MD Roel [address] [place] [address] 12/27/2025 8:45 AM EDT Office Visit [facility] ADULT DENTAL [address] [place] [address] Jesse Alejandrearis [address] [place] [address] documented as of this encounter Visit Diagnoses Not on filedocumented in this encounter Additional Health Concerns Assessment Noted Time PHQ-9 Depression Total Score: 0 11/03/19 23 8:54 AM EST documented as of this encounter Care Teams Hydro Sprayer Operator Relationship Specialty Start Date End Date Name, MD Roel [address] [place] [phone] PCP - General Family Medicine 10/04/17 documented as of this encounter
--- OUTSIDE RECORDS SUMMARY | 2025-09-28 20:04 | XMS_ITS | Encounter Summary ---
Author Organization [facility] Address [address] [place] [address] [address]t [place] [address] Care Team Providers Care Char Filter Tank Tender Head Name Role Phone Name, Roel ORTEGA Primary Care Provider [phone] Encounter Details Date Type Department Care Team (Late Contact Info) Description 03/18/2023 Abstract [facility] [address] [phone] Name, MD Roel [address] [place] [phone] Social History Tobacco Use Types Packs/Day Years [...] Upcoming Encounters Date Type Department Care Team ([facility] Contact Info) Description 12/17/2025 3:15 PM EST Office Visit [facility] [address] [phone] Name, MD Roel [address] [place] [address] 12/27/2025 8:45 AM EDT Office Visit [facility] ADULT DENTAL [address] [place], [place] [phone] Kathleen Alejandre [address] [place], [place] [phone] documented as of this encounter Procedures Procedure [...] documented as of this encounter Care Teams Char Filter Tank Tender Head Relationship Specialty Start Date End Date Name, MD Roel Kylah [place], [place] [phone] PCP - General Family Medicine 10/04/17 documented as of this encounter
--- OUTSIDE RECORDS SUMMARY | 2025-09-28 20:04 | XMS_ITS | Encounter Summary ---
Author Organization [facility] Address [address] [place] [address] 7t [place] [address] Care Team Providers Care Packaging Engineer Name Role Phone NameRoel MD Primary Care Provider [phone] Encounter Details Date Type Department Care Team (Latest Contact Info) Description 12/20/2020 Abstract [facility] CONVERSIONS Dental, Provider, DDS Social History [...] Upcoming Encounters Date Type Department Care Team ( st Contact Info) Description 12/17/2025 3:15 PM EST Office Visit [facility] [address] [place] [address] Roel Rock MD [address] [place] [address] 12/27/2025 8:45 AM EDT Office Visit [facility] ADULT DENTAL [address] [place] [address] Jesse Alejandrearis [address] [place] [address] documented as of this encounter Visit Diagnoses Not on filedocumented in this encounter Care Teams Packaging Engineer Relationship Specialty Start Date End Date Roel Rock MD [address] [place] [address] PCP - General Family Medicine 10/04/17 documented as of this encounter
--- OUTSIDE RECORDS SUMMARY | 2025-09-28 20:04 | XMS_ITS | Encounter Summary ---
Demographics Address [address] [place] [address] Work Phone Home Phone Mobile Phone Preferred Language es Marital Status Single Shinto Affiliation Unknown Race Other Race Ethnic Group Unknown Author Organization [employer] Address [address] [place] [address] Care Team Providers Care Coat Joiner Name Role Phone Name, Roel ORTEGA Primary Care Provider [phone] Encounter Details Date Type Department Care Team ([facility] Contact Info) Description 09/27/2025 Orders Only GENERIC EXTERNAL DATA [...] Description 12/17/2025 3:15 PM EST Office Visit [facility] [address] [place] [address] Name, MD Roel [address] [place] [address] 12/27/2025 8:45 AM EDT Office Visit [facility] AD[facility] D[facility]AL [address] [place] [address] [facility] [address] [place] [address] documented as of this encounter Procedures Procedure Name Priority Date/Time Associated Diagnosis Comments GLUCOSE, WHOLE BLOOD Routine 09/27/2025 1:46 PM EST documented in this encounter Results * (ABNORMAL) Glucose, Whole Blood (09/27/2025 1:46 PM EST) Glucose, Whole Blood 158(H) 60 - 115 mg/dL [facility] Comment:METER #: [id number] 09/27/2025 1:46 PM EST 09/27/2025 1:55 PM EST us Generic External Data Provider LAB BLOOD ORDERAB LES Final Result [facility] [address] [place] [address] [phone] documented in this encounter Visit Diagnoses Not on filedocumented in this encounter Additional Health Concerns Assessment Noted Time PHQ-9 Depression Total Score: 9 03/05/20 25 2:25 PM EDT documented as of this encounter Care Teams Coat Joiner Relationship Specialty Start Date End Date Name, MD Roel [address] [place] [id number] PCP - General Family Medicine 10/04/17 documented as of this encounter
== END 2025-09-28 15:42 | disposition home or self-care (01) ==
LOC: HO.HGI 15:02
PROVIDERS: PCP Internal Medicine Geriatric Medicine; Visit Provider Nurse Practitioner
DX: K31.84 Gastroparesis (principal); K21.9 Gastro-esophageal reflux disease without esophagitis; R11.2 Nausea with vomiting, unspecified; K59.00 Constipation, unspecified
CPT/HCPCS: 99213

== ENCOUNTER → 2025-09-28 15:01 | Outpatient (BNVA) | payer MEDICAID, SELFPAY | PROVIDERS: PCP Internal Medicine Geriatric Medicine; Visit Provider Nurse Practitioner | DX: K25.9 Gastric ulcer, unspecified as acute or chronic, without hemorrhage or perforation (principal); K21.9 Gastro-esophageal reflux disease without esophagitis; K31.84 Gastroparesis; R11.2 Nausea with vomiting, unspecified; K59.00 Constipation, unspecified; Z79.82 Long term (current) use of aspirin; Z79.899 Other long term (current) drug therapy | CPT/HCPCS: 99212 ==